=== PATIENT | male | born 1950 | race Caucasian/White ===

== ENCOUNTER 2021-06-06 10:55 | Outpatient (REF) | payer MEDICARE, MEDICAID, SELFPAY ==
--- NOTE | ~2021-06-06 | US_ITS ---
EXAMINATION: US RETROPERITONEAL LIMITED (RENAL ONLY) CLINICAL INFORMATION: History of nephrolithiasis. Acute onset of left flank pain. COMPARISON: CT abdomen and pelvis 10/08/2017. Ultrasound kidneys and bladder 06/12/2017. TECHNIQUE: Real-time imaging of the kidneys. Technically limited study. The left kidney was difficult to visualized due to patient's body habitus. FINDINGS: RIGHT KIDNEY: 9.4 x 4.8 x 5.9 cm (SAG x AP x TRV). The kidney is normal in size, contour, and echogenicity. Renal cortical thickness is normal. No calculi or focal parenchymal lesions. No hydronephrosis. LEFT KIDNEY: 10.2 x 4.4 x 6.3 cm (SAG x AP x TRV). The kidney is normal in size, contour, and echogenicity. Renal cortical thickness is normal. No hydronephrosis. Solitary echogenic focus is noted at the inferior pole, measures approximately 0.5 cm at its maximum dimension (23), may represent vascular calcification versus nonobstructing calculus. Exophytic hypoechogenicity is also noted at inferior pole measuring 1.3 x 1.0 x 0.9 cm, most minimally complicated cyst. US/US renal BI IMPRESSION: 1. 0.5 cm echogenic focus at the inferior pole of the left kidney, may represent vascular calcification versus nonobstructing calculus. 1.3 cm minimally complicated exophytic left renal cyst at the inferior pole. 2. Sonographically unremarkable right kidney.
== END 2021-06-06 10:56 | disposition home or self-care (01) ==
LOC: HO.US 10:55
PROVIDERS: PCP Nurse Practitioner; Visit Provider Nurse Practitioner
DX: R10.9 Unspecified abdominal pain (principal)
CPT/HCPCS: 76775

== ENCOUNTER 2021-09-18 08:28 | Outpatient (REF) | payer MEDICARE, MEDICAID, SELFPAY ==
--- NOTE | ~2021-09-18 | MR_ITS ---
EXAMINATION: MR ABDOMEN WITHOUT CONTRAST CLINICAL INFORMATION: Left adrenal mass COMPARISON: CT abdomen 07/24/2021 TECHNIQUE: MR abdomen is performed without gadolinium contrast. Patient declined intravenous contrast. FINDINGS: Exam is markedly limited due to motion artifact and severe scoliotic curvature of the spine. LUNG BASES: Small bilateral pleural effusions. ABDOMINAL AND PELVIC WALL: Unremarkable. LIVER AND BILIARY TREE: Unremarkable. GALLBLADDER: Unremarkable. PANCREAS: Unremarkable. SPLEEN: Unremarkable. ADRENAL GLANDS: Right adrenal gland is unremarkable. The left adrenal gland is not definitively discerned given limitations of motion and severe scoliosis. KIDNEYS AND URETERS: A 0.8 cm T2 hypointense left upper pole renal lesion and a 1.0 cm T2 hypointense left lower pole renal lesion. Given severe motion degradation on T1 images these cannot be definitively characterized. GASTROINTESTINAL TRACT: Unremarkable. VASCULAR: Unremarkable. LYMPH NODES/PERITONEUM: No lymphadenopathy. FREE FLUID: None. OSSEOUS STRUCTURES: Severe dextroconvex scoliosis. MR/MR abdomen wo con IMPRESSION: Markedly technically limited exam due to motion artifact and severe scoliotic curvature of the spine. Left adrenal gland is not definitively discerned given these limitations. A CT adrenal protocol could be obtained for further characterization given concerns. There are T2 hypointense left renal lesions measuring up to 1.0 cm incompletely characterized on the basis of this exam as the T1 sequence is nondiagnostic due to motion. Given the prior appearance on CT these may reflect hyperdense renal cysts, which could be confirmed on the above recommended CT adrenal protocol. Small pleural effusions.
== END 2021-09-18 08:29 | disposition home or self-care (01) ==
LOC: HO.MRI 08:28
PROVIDERS: Visit Provider Internal Medicine Geriatric Medicine
DX: E27.8 Other specified disorders of adrenal gland (principal)
CPT/HCPCS: 74181

== ENCOUNTER 2022-11-25 12:14 | Outpatient (REF) | payer MEDICARE, MEDICAID, SELFPAY ==
[2022-11-25 13:54] LABS: Anion Gap 9 (12-20); Blood Urea Nitrogen 17 mg/dL (9-16); Calcium 9.5 mg/dL (8.4-10.2); Carbon Dioxide 32 mmol/L (22-29); Chloride 95 mmol/L (96-108); Estimated Glomerular Filt Rate > 60; Glucose Random 93 mg/dL (60-115); Potassium 3.9 mmol/L (3.3-5.1); Sodium 132 mmol/L (135-145)
[2022-11-25 17:40] LABS: Creatinine Urine 25.89 mg/dL; Microalbumin Urine < 5.0 mg/L
== END 2022-11-25 12:15 | disposition home or self-care (01) ==
LOC: HO.HHCL 12:14
PROVIDERS: Visit Provider Internal Medicine Geriatric Medicine
DX: J02.9 Acute pharyngitis, unspecified (principal); R60.0 Localized edema
CPT/HCPCS: 36415; 80048; 82043

== ENCOUNTER 2023-03-16 08:54 | Outpatient (REF) | payer MEDICARE, MEDICAID, SELFPAY ==
[2023-03-16 11:47] LABS: Anion Gap 14 (12-20); Blood Urea Nitrogen 9 mg/dL (9-16); Calcium 9.9 mg/dL (8.4-10.2); Carbon Dioxide 31 mmol/L (22-29); Chloride 88 mmol/L (96-108); Estimated Glomerular Filt Rate > 60; Glucose Random 90 mg/dL (60-115); Potassium 4.3 mmol/L (3.3-5.1); Sodium 129 mmol/L (135-145)
== END 2023-03-16 08:55 | disposition home or self-care (01) ==
LOC: HO.HHCL 08:54
PROVIDERS: Visit Provider Internal Medicine Geriatric Medicine
DX: E87.1 Hypo-osmolality and hyponatremia (principal)
CPT/HCPCS: 36415; 80048

== ENCOUNTER 2023-03-23 08:34 | Outpatient (REF) | payer MEDICARE, MEDICAID, SELFPAY ==
[2023-03-23 12:25] LABS: Anion Gap 12 (12-20); Blood Urea Nitrogen 10 mg/dL (9-16); Calcium 9.5 mg/dL (8.4-10.2); Carbon Dioxide 29 mmol/L (22-29); Chloride 94 mmol/L (96-108); Estimated Glomerular Filt Rate > 60; Glucose Random 80 mg/dL (60-115); Potassium 4.6 mmol/L (3.3-5.1); Sodium 130 mmol/L (135-145)
== END 2023-03-23 08:35 | disposition home or self-care (01) ==
LOC: HO.HHCL 08:34
PROVIDERS: Visit Provider Internal Medicine Geriatric Medicine
DX: I10 Essential (primary) hypertension (principal); E87.1 Hypo-osmolality and hyponatremia
CPT/HCPCS: 36415; 80048

== ENCOUNTER 2023-04-06 13:55 | Outpatient (REF) | payer MEDICARE, MEDICAID, SELFPAY ==
--- NOTE | ~2023-04-06 | US_ITS ---
EXAMINATION: US SCROTUM CLINICAL INFORMATION: Right lower quadrant pain. COMPARISON: Ultrasound scrotum 09/08/2016. TECHNIQUE: A sonogram of the scrotum was performed assessing blue-scale appearance and color Doppler flow. Spectral Doppler analysis of the arterial and venous flow were performed in the testes bilaterally. FINDINGS: RIGHT: Right testicle measures 4.6 x 2.0 x 3.1 cm, volume 15.1 mL. No focal testicular parenchymal lesions are visualized. Spectral Doppler analysis of the arterial and venous flow is normal in the right testis. Right epididymal head is normal in size. No right varicocele is seen. Small to moderate hydrocele. Right epididymal Doppler flow is normal. LEFT: Left testicle measures 4.8 x 1.8 x 3.1 cm, volume 14.2 mL. No focal testicular parenchymal lesions are visualized. Spectral Doppler analysis of the arterial and venous flow is normal in the left testis. Left epididymal head is normal in size. No left varicocele is seen. Large hydrocele with floating debris. Left epididymal Doppler flow is normal. US/US scrotum IMPRESSION: 1. Large left hydrocele with floating debris, correlate clinically for superimposed infection. 2. Small to moderate right hydrocele.
== END 2023-04-06 13:56 | disposition home or self-care (01) ==
LOC: HO.US 13:55
PROVIDERS: PCP Internal Medicine Geriatric Medicine; Visit Provider Internal Medicine Geriatric Medicine
DX: R10.31 Right lower quadrant pain (principal)
CPT/HCPCS: 76870

== ENCOUNTER 2023-06-03 14:25 | Outpatient (REF) | payer MEDICARE, MEDICAID, SELFPAY ==
[2023-06-03 17:06] LABS: Urine Cytology See Pathology rpt
== END 2023-06-03 14:26 | disposition home or self-care (01) ==
LOC: HO.LNP 14:25
PROVIDERS: PCP Internal Medicine Geriatric Medicine; Visit Provider Urology
DX: N43.3 Hydrocele, unspecified (principal); N28.89 Other specified disorders of kidney and ureter; R31.29 Other microscopic hematuria; R33.9 Retention of urine, unspecified; R10.31 Right lower quadrant pain; Z79.899 Other long term (current) drug therapy
CPT/HCPCS: 81003; 88112; 99202

== ENCOUNTER 2023-06-03 14:25 | Outpatient (AMB) | payer MEDICARE, MEDICAID, SELFPAY ==
--- NOTE | 2023-06-03 14:42 | MHC.OFFVIS ---
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 Production Managing Required: Yes Accompanied by: Self / Same As Patient Allergies No Known Allergies Allergy (Verified 06/03/23 14:47) Medication List - Last Reconciled 06/04/23 by Rhonda Castañeda MD albuterol sulfate 90 mcg/actuation 2 puffs inhalation Q4-6H PRN atorvastatin 20 mg PO DAILY clotrimazole-betamethasone 1-0.05 % appl topical BID furosemide (Lasix) 10 mg (1/2 x 20 mg) PO Q OTHER DAY gabapentin 300 mg PO TID hydrochlorothiazide mg PO ketotifen fumarate 0.025%(0.035%) 1 drp ophthalmic (eye) BID latanoprost 0.005% 1 drp ophthalmic (eye) QPM naproxen 500 mg PO BID tamsulosin 0.8 mg PO DAILY HPI HPI Comments History of Present Illness Details Ifeanyi is a Arabic-speaking male who states he had Pain right inguinal area and was Sent for scrotal ultrasound by his PCP. 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 He denies urinary symptoms. Denies cigarette use. Review of scrotal ultrasound bilateral hydrocele left greater than right. Examination -tenderness right groin, denies scrotal tenderness, denies hydroceles are bothersome. Urinalysis 2+ blood Plan:Right inguinal pain, h/o right inguinal repair- refer to gen surgery b/L hydrocele L>R, asymptomatic, will monitor conservatively Microscopic hematuria renal hyperdense cyst vs mass on previous MRI CT Urogram urine for cytology fu office cysto PFSH Surgical History History of surgery on lower extremity H/O inguinal hernia repair Social History Alcohol intake: never Smoked in Last 30 Days: No Use of substances other than those prescribed or required for medical reasons: No Advance Directives: No Advance Directives Information Provided: Yes Review of Systems Const All systems reviewed & are unremarkable except as noted in HPI and below Reports no additional complaints Eyes Reports no additional complaints ENT Reports no additional complaints Card Denies dyspnea Resp Denies cough and Denies dyspnea GI Reports no additional complaints Musc Reports no additional complaints Skin/Breast Denies rash and Denies unusual bruising Neuro Reports no additional complaints Psych Reports no additional complaints Endo Reports no additional complaints Kingsley/Lymph Reports no additional complaints Aller/Immun Reports no additional complaints Physical Exam Const General: healthy appearing, no acute distress and well developed Orientation/consciousness: patient oriented x3 HEENT Head: Yes normocephalic and Yes atraumatic Eyes Conjunctivae: conjunctivae normal Neck Neck: Yes normal visual inspection Chest Chest palpation & inspection: normal inspection of the chest Resp Effort & Inspection: normal respiratory effort Cardio Rate: regular rate GI Inspection: Yes normal to inspection Palpation (GI): Soft to palpation Other: Bilateral hydroceles, non tender L>R Penis: normal penis and uncircumcised Skin General skin exam: no rashes or lesions noted Neuro General: patient oriented x3 Extrem General: No pedal edema Psych Appearance: grossly normal Affect: normal affect Results AMB Urinalysis, Automated UA Leukoctes 0 Saturnino/uL Last Edit by Zuleyka Christian CMA on 06/03/23 15:00 UA Nitrite Negative Last Edit by Zuleyka Christian CMA on 06/03/23 15:00 UA Urobilinogen 0.2 mg/dL Last Edit by Zuleyka Christian CMA on 06/03/23 15:00 UA Protein 0 mg/dL Last Edit by Zuleyka Christian CMA on 06/03/23 15:00 UA pH 7.0 Last Edit by Zuleyka Christian [facility] on 06/03/23 15:00 UA Blood 80 Jagdeep/uL Last Edit by Zuleyka Christian [facility] on 06/03/23 15:00 UA Specific [place] 1.015 Last Edit by Zuleyka Christian [facility] on 06/03/23 15:00 UA Ketone Negative Last Edit by Zuleyka Christian CMA on 06/03/23 15:00 UA Bilirubin 0 mg/dL Last Edit by Zuleyka Christian CMA on 06/03/23 15:00 UA Glucose 0 mg/dL Last Edit by Zuleyka Christian [facility] on 06/03/23 15:00 Results Reviewed Results Reviewed: Laboratory Last Values Urine pH (Auto) 7.0 06/03/23 14:58 Specific [place] (Auto) 1.015 06/03/23 14:58 Urine Protein (Auto) 0 mg/dL 06/03/23 14:58 Glucose (UA)(Auto) 0 mg/dL 06/03/23 14:58 Urine Ketones (Auto) Negative 06/03/23 14:58 Urine Blood (Auto) 80 Jagdeep/uL 06/03/23 14:58 Urine Nitrite (Auto) Negative 06/03/23 14:58 Urine Bilirubin (Auto) 0 mg/dL 06/03/23 14:58 Urine Urobilinogen (Auto) 0.2 mg/dL 06/03/23 14:58 Leukocyte Esterase (Auto) 0 Saturnino/uL 06/03/23 14:58 Date of Service: 04/06/23 Procedure(s): US scrotum Accession Number(s): [id number] cc: Name,Jamie DURHAM~ EXAMINATION: US SCROTUM CLINICAL INFORMATION: Right lower quadrant pain. COMPARISON: Ultrasound scrotum 09/08/2016. TECHNIQUE: A sonogram of the scrotum was performed assessing blue-scale appearance and color Doppler flow. Spectral Doppler analysis of the arterial and venous flow were performed in the testes bilaterally. FINDINGS: RIGHT: Right testicle measures 4.6 x 2.0 x 3.1 cm, volume 15.1 mL. No focal testicular parenchymal lesions are visualized. Spectral Doppler analysis of the arterial and venous flow is normal in the right testis. Right epididymal head is normal in size. No right varicocele is seen. Small to moderate hydrocele. Right epididymal Doppler flow is normal. LEFT: Left testicle measures 4.8 x 1.8 x 3.1 cm, volume 14.2 mL. No focal testicular parenchymal lesions are visualized. Spectral Doppler analysis of the arterial and venous flow is normal in the left testis. Left epididymal head is normal in size. No left varicocele is seen. Large hydrocele with floating debris. Left epididymal Doppler flow is normal. US/US scrotum IMPRESSION: 1. Large left hydrocele with floating debris, correlate clinically for superimposed infection. 2. Small to moderate right hydrocele. Date of Service: 09/18/21 EXAMINATION: MR ABDOMEN WITHOUT CONTRAST CLINICAL INFORMATION: Left adrenal mass COMPARISON: CT abdomen 07/24/2021 TECHNIQUE: MR abdomen is performed without gadolinium contrast. Patient declined intravenous contrast. FINDINGS: Exam is markedly limited due to motion artifact and severe scoliotic curvature of the spine. LUNG BASES: Small bilateral pleural effusions. ABDOMINAL AND PELVIC WALL: Unremarkable. LIVER AND BILIARY TREE: Unremarkable. GALLBLADDER: Unremarkable. PANCREAS: Unremarkable. SPLEEN: Unremarkable. ADRENAL GLANDS: Right adrenal gland is unremarkable. The left adrenal gland is not definitively discerned given limitations of motion and severe scoliosis. KIDNEYS AND URETERS: A 0.8 cm T2 hypointense left upper pole renal lesion and a 1.0 cm T2 hypointense left lower pole renal lesion. Given severe motion degradation on T1 images these cannot be definitively characterized. GASTROINTESTINAL TRACT: Unremarkable. VASCULAR: Unremarkable. LYMPH NODES/PERITONEUM: No lymphadenopathy. FREE FLUID: None. OSSEOUS STRUCTURES: Severe dextroconvex scoliosis. IMPRESSION: Markedly technically limited exam due to motion artifact and severe scoliotic curvature of the spine. Left adrenal gland is not definitively discerned given these limitations. A CT adrenal protocol could be obtained for further characterization given concerns. There are T2 hypointense left renal lesions measuring up to 1.0 cm incompletely characterized on the basis of this exam as the T1 sequence is nondiagnostic due to motion. Given the prior appearance on CT these may reflect hyperdense renal cysts, which could be confirmed on the above recommended CT adrenal protocol. Small pleural effusions. Assessment & Plan Assessment & Plan (1) Hydrocele, bilateral: Code(s): N43.3 - Hydrocele, unspecified (2) Renal mass of unknown nature: Code(s): N28.89 - Other specified disorders of kidney and ureter (3) Microscopic hematuria: Code(s): R31.29 - Other microscopic hematuria (4) Deep right inguinal pain: Code(s): R10.31 - Right lower quadrant pain Plan Right inguinal pain, h/o right inguinal repair- refer to gen surgery b/L hydrocele L>R, asymptomatic, will monitor conservatively Microscopic hematuria renal hyperdense cyst vs mass on previous MRI CT Urogram urine for cytology fu office cysto Orders: Orders AMB Urinalysis Automated 06/03/23 R33.9 - Retention of urine, unspecified CT urogram 06/03/23 R31.9 - Hematuria, unspecified Urine Cytology 06/03/23 N43.3 - Hydrocele, unspecified, R31.29 - Other microscopic hematuria Referrals General Surgery Referral R10.31 - Right lower quadrant pain Coding Level of Care Code New Pt Level 4 (33814) Diagnoses Hydrocele, bilateral N43.3 Renal mass of unknown nature N28.89 Microscopic hematuria R31.29 Deep right inguinal pain R10.31
== END 2023-06-03 15:12 | disposition home or self-care (01) ==
LOC: HO.HUSH 14:25
PROVIDERS: PCP Internal Medicine Geriatric Medicine; Visit Provider Urology
DX: N43.3 Hydrocele, unspecified (principal); N28.89 Other specified disorders of kidney and ureter; R31.29 Other microscopic hematuria; R10.31 Right lower quadrant pain
CPT/HCPCS: 99204

== ENCOUNTER 2023-06-03 16:38 | Emergency (ER) | payer MEDICARE, MEDICAID, SELFPAY ==
--- NOTE | ~2023-06-03 | US_ITS ---
EXAMINATION: US VENOUS ULTRASOUND WITH DOPPLER LOWER EXTREMITY, BILATERAL CLINICAL INFORMATION: Edema COMPARISON: None available. TECHNIQUE: Ultrasound of the deep veins is performed from the hip to the calf with compression sonography and color and pulse Doppler assessment. Spectral analysis with color-flow imaging is performed. FINDINGS: RIGHT: There is normal venous compression and respiratory variation and augmented flow. The visualized common femoral vein, superficial femoral vein, profunda femoral vein, popliteal vein, and the trifurcation region shows no evidence of deep venous thrombosis. There is no significant popliteal fossa cyst. LEFT: There is normal venous compression and respiratory variation and augmented flow. The visualized common femoral vein, superficial femoral vein, profunda femoral vein, popliteal vein, and the trifurcation region shows no evidence of deep venous thrombosis. There is no significant popliteal fossa cyst. If the patient's symptoms persist, followup ultrasound in 5 days 7 days might be of value to exclude proximal propagation from a non-visualized calf vein. US/US venous duplex LE BI IMPRESSION: No DVT demonstrated in the bilateral lower extremity.
--- NOTE | ~2023-06-03 | XR_ITS ---
EXAMINATION: XR CHEST CLINICAL INFORMATION: SOB. COMPARISON: Chest 06/25/2017 TECHNIQUE: Frontal view of the chest was obtained. FINDINGS: There is hypovolemic lungs with mild atelectatic changes in both lung bases. There is mild thyromegaly with increased perivascular is suggestive mild CHF. There is bilateral small pleural effusion noted. These findings are new since 2018. Moderate dextrorotoscoliosis of dorsal spine XR/XR chest 1V IMPRESSION: 1. Cardiomegaly mild CHF and bilateral small pleural effusions. 2. Hypovolemic lungs with mild atelectatic changes in both lung bases.. 3. Significant dextrorotoscoliosis dorsal spine.
[2023-06-03 16:57] VITALS: BP 178/94; PULSE 70; RESP 16; TEMP 36.8; O2SAT 95; BMI 24.9
--- NOTE | 2023-06-03 17:00 | ECG_ITS ---
Test Reason : SOB Blood Pressure : / mmHG Vent. Rate : 068 BPM Atrial Rate : 068 BPM P-R Int : 152 ms QRS Dur : 116 ms QT Int : 386 ms P-R-T Axes : 049 137 048 degrees QTc Int : 410 ms Normal sinus rhythm with sinus arrhythmia Right bundle branch block Left posterior fascicular block Bifascicular block Abnormal ECG No previous ECGs available Referred By: Meng Patterson Electronically Signed By:ZEYAD LAU MD
--- NOTE | 2023-06-03 17:05 | ED_ITS ---
HPI - General Adult General Chief complaint: Upper Respiratory Symptoms Stated complaint: Difficulty breathing, referred by UC Time Seen by Provider: 06/03/23 23:54 Source: patient, family and rn labor and delivery Mode of arrival: ambulatory History of Present Illness HPI narrative: 72-year-old male who presents with worsening shortness of breath for the past couple of months but over the past week states it is become much worse with worsening swelling in the left lower extremity, dyspnea on exertion without chest pain/palpitations, denies any changes in medications. Related Data Home Medications Medication Instructions Recorded Confirmed albuterol sulfate 90 mcg/actuation 2 puff inhalation Q4-6H PRN 06/03/23 06/04/23 aerosol inhaler atorvastatin 20 mg tablet 20 mg PO DAILY 06/03/23 06/04/23 clotrimazole-betamethasone 1 appl topical BID 06/03/23 06/04/23 %-0.05 % topical cream gabapentin 300 mg capsule 300 mg PO TID 06/03/23 06/04/23 hydrochlorothiazide 12.5 mg tablet mg PO 06/03/23 06/04/23 ketotifen fumarate 0.025 % (0.035 1 drp ophthalmic (eye) BID 06/03/23 06/04/23 %) eye drops latanoprost 0.005 % eye drops 1 drp ophthalmic (eye) QPM 06/03/23 06/04/23 naproxen 500 mg tablet 500 mg PO BID 06/03/23 06/04/23 tamsulosin 0.4 mg capsule 0.8 mg PO DAILY 06/03/23 06/04/23 Previous Rx's Medication Instructions Recorded furosemide 20 mg tablet (Lasix) 10 mg (1/2 x 20 mg) PO Q OTHER DAY 06/04/23 #3 tabs Allergies Allergy/AdvReac Type Severity Reaction Status Date / Time No Known Allergies Allergy Verified 06/03/23 14:47 Review of Systems 2 Review of Systems: Pertinent positives and negatives as stated in [facility] Past Medical History Source: nursing notes reviewed Surgical History History of surgery on lower extremity H/O inguinal hernia repair Social History Social History Alcohol intake: never Smoked in Last 30 Days: No Use of substances other than those prescribed or required for medical reasons: No Advance Directives: No Advance Directives Information Provided: Yes Physical Exam ED Vital Signs: Vital Signs - 24 hr 06/03/23 16:57 06/03/23 22:54 06/03/23 23:52 Temperature 98.2 F 97.8 F 97.6 F Pulse Rate 70 73 62 Respiratory Rate 16 16 14 Blood Pressure 178/94 H 164/82 H 169/86 H Pulse Oximetry 95 94 96 Oxygen Delivery Method Room Air Room Air Room Air 06/04/23 00:47 06/04/23 00:47 Temperature Pulse Rate 58 Respiratory Rate 12 Blood Pressure 142/86 H Pulse Oximetry 96 96 Oxygen Delivery Method Room Air Room Air BMI result Body Mass Index 24.9 VITAL SIGNS: Reviewed. GENERAL: Well developed, well nourished, in no acute distress. HEAD: Normocephalic/atraumatic EYES: PERRLA, EOMI EARS: Ext canals without abnormality NOSE: Nares patent bilateral OROPHARYNX: no oral lesions noted, posterior pharynx clear NECK: Supple, no adenopathy LUNGS: Bibasilar rales, no tachypnea no obvious increased work of breathing. SpO2<96> CARDIOVASCULAR: Regular rate and rhythm without noted murmurs, no JVD but bilateral lower extremity 1 to 2+ pitting edema, left greater than right ABDOMEN: Soft, non-tender, non-distended with bowel sounds. MUSCULOSKELETAL: No tenderness, deformities, or effusions noted on gross inspection. EXTREMITIES: No cyanosis, clubbing or edema. SKIN: Inspection of the skin reveals no rashes NEUROLOGIC: Alert and oriented x 4. Strength and sensation to light touch were grossly intact x 4. Course Course Course Narrative: RME: 72 yold male with presents to the ED for SOB for 3 months. patient was at clinic where 02 sat dropped from 97 to 87. Presently 02 sat 95 percent on room air. positive for right leg swelling. labs, EKG, xray, and US ordered Medications Administered Discontinued Medications Generic Name Dose Route Start Last Admin Trade Name Freq PRN Reason Stop Dose Admin Furosemide 20 mg 06/04/23 00:32 06/04/23 00:46 Furosemide 20 Mg Tablet PO 06/04/23 00:33 20 mg ONCE ONE Administration Protocol Medical Decision Making Medical Decision Making MDM Narrative: 72-year-old male with history and clinical presentation, DDX: Viral illness, CHF, DVT, lower clinical suspicion for ACS or pneumonia. I reviewed all investigations and hematologic indices are without leukocytosis or left shift, there is no anemia or thrombocytopenia. Coagulation studies are within normal limits. Chemistry indices do not demonstrate an JOSELO nor they demonstrate electrolyte or liver enzyme derangements. High sensitivity troponin is noted to be detectable but not elevated and BNP although 39 clinical exam/chest x-ray are consistent in that patient has mild CHF without hypoxia. Urinalysis negative for UTI. Viral testing is negative for COVID-19/influenza. Chest x-ray demonstrates cardiomegaly and evidence to suggest mild CHF with bilateral small pleural effusions. Patient will receive 20 mg of Lasix orally and be discharged on Q0D 10 mg and he was strongly encouraged to follow-up with his primary care doctor 1st thing in the morning for repeat lab work and referral for Cardiology. Venous duplex did not demonstrate a DVT in the lower extremity and again the swelling within the lower extremity most consistent with CHF. Patient is otherwise discharged home in stable condition. Differential Diagnosis Differential Diagnoses: The differential diagnosis associated with the presentation includes Please see the discussion above Admission/Observation Consideration of admission/observation: Escalation of care including admission/observation considered Please see the discussion above Lab Data MDM Lab Attestation statement: I reviewed the patient's lab results. Please see the discussion above 06/03/23 17:15 06/03/23 17:15 Labs: Lab Results 06/03/23 Range/Units 17:15 WBC 4.4 L (4.8-10.8) X10*3/uL RBC 4.66 (4.60-5.80) X10*6/uL Hgb 15.0 (14.0-18.0) g/dl Hct 44.5 (42.0-52.0) % MCV 95.5 (80.0-98.0) fL MCH 32.2 (27.0-33.0) pg MCHC 33.7 (31.0-36.0) g/dl RDW 12.8 (11.0-16.0) % Plt Count 200 (160-400) X10*3/uL MPV 9.1 L (9.4-12.4) fL Immature Gran % (Auto) 0.2 (0.0-0.4) % Neut % (Auto) 61.1 (45-73) % Lymph % (Auto) 30.0 (20-40) % [place] % (Auto) 7.4 (2-11) % Eos % (Auto) 1.1 (0-4) % Baso % (Auto) 0.2 (0-2) % Lymph # (Auto) 1.3 (1.2-4.9) X10*3/uL [place] # (Auto) 0.3 (0.1-1.2) X10*3/uL Eos # (Auto) 0.1 (0.0-0.4) X10*3/uL Baso # (Auto) 0.0 (0.0-0.2) X10*3/uL Abs Immat Gran (auto) 0.01 (0.00-0.03) X10*3/uL Absolute Neuts (auto) 2.7 (2.0-8.3) x10*3/uL Absolute Nucleated RBC 0.000 (0.0-0.012) X10*3/uL Nucleated RBC % (auto) 0.0 (0.0-0.2) /100WBC PT 12.6 (11.1-13.3) SEC INR 1.0 (0.9-1.1) APTT 32.0 (26.0-36.8) SEC Sodium 134 L (135-145) mmol/L Potassium 4.2 (3.3-5.1) mmol/L Chloride 96 (96-108) mmol/L Carbon Dioxide 29 (22-29) mmol/L Anion Gap 13 (12-20) BUN 11 (9-16) mg/dL Creatinine 0.68 (0.5-1.4) mg/dL Estim Creat Clear Calc 44.8 Estimated GFR > 60 Random Glucose 97 (60-115) mg/dL Calcium 9.5 (8.4-10.2) mg/dL Total Bilirubin 0.9 (0.0-1.0) mg/dL AST 22 (5-37) U/L ALT 14 (0-40) U/L Alkaline Phosphatase 87 (39-117) U/L Troponin I High Sens 4.2 (<3.5-35.0) ng/L B-Natriuretic Peptide 39 (<100) pg/mL Total Protein 7.2 (6.5-8.0) g/dL Albumin 4.5 (3.5-5.0) g/dL COVID-19 (MIGUEL ANGEL) Negative (Negative) COVID-19 Clin Com See Note Influenza Type A (ANN) Negative (Negative) Influenza Type B (ANN) Negative (Negative) Influenza A & B Note See Note Independent Interpretation I performed an independent interpretation of an: EKG Radiology Impression Discussion of test interpretation with radiology: I have reviewed the radiologist's reading. Radiologist Impression: Please see the discussion above External Record Review External record reviewed: Outpatient record, Prior outpatient labs and Prior outpatient radiology Critical Care Time Critical Care Time Critical Care Time: Yes Total Critical Care Time: 45 Attestation: I personally attest to this time spent taking care of the patient. Discharge Plan Discharge Clinical Impression: CHF (congestive heart failure) Patient Disposition: Home, Self-Care Instructions: Heart Failure (ED) Additional Instructions: 1. Reanudar todos los medicamentos caseros seg?n lo recetado. 2. 10 mg de Lasix, cada dos d?as, samuel? fair primera dosis el s?bado/lunes/mi?rcoles. 3. Debe llamar al consultorio del Dr. Andreia hernandez por la ma?ted para programar harvinder kate para harvinder reevaluaci?n, repetir el an?lisis de laboratorio para verificar rayshawn electrolitos y discutir la obtenci?n de harvinder derivaci?n a Cardiolog?a. Regrese a la tao de emergencias si los s?ntomas empeoran. 1. Resume all home medications as prescribed. 2. 10 mg of Lasix, every other day, you will take your 1st dose on Thursday/Thursday/Thursday. 3. You need to call the office of Dr. Andreia hernandez in the morning to set up an appointment for re-evaluation, repeat lab work to check your electrolytes and discuss obtaining a referral for Cardiology. Return to the ER for any worsening of symptoms. Prescriptions: New furosemide [Lasix] 20 mg tablet 10 mg PO Q OTHER DAY Qty: 3 0RF Rx Instructions: Thursday, Thursday, Thursday No Action naproxen 500 mg tablet 500 mg PO BID tamsulosin 0.4 mg capsule 0.8 mg PO DAILY clotrimazole-betamethasone 1-0.05 % cream topical BID atorvastatin 20 mg tablet 20 mg PO DAILY gabapentin 300 mg capsule 300 mg PO TID latanoprost 0.005 % drops 1 drp ophthalmic (eye) QPM ketotifen fumarate 0.025 % (0.035 %) drops 1 drp ophthalmic (eye) BID Rx Instructions: administer at least 8 hours apart hydrochlorothiazide 12.5 mg tablet PO albuterol sulfate 90 mcg/actuation HFA aerosol inhaler 2 puff inhalation Q4-6H PRN Referrals: Name,MD Jamie [Primary Care Provider] - Interventions: ED Discharge Assessment Last Done: 06/04/23 01:17 Discharge Date/Time: 06/04/23 01:17 Print Language: Nauruan
[2023-06-03 17:30] LABS: MANUAL DIFF FLAG NO
[2023-06-03 17:32] LABS: Basophils Percent Auto 0.2 % (0-2); Eosinophils Absolute Auto 0.1 X10*3/uL (0.0-0.4); Eosinophils Percent Auto 1.1 % (0-4); Hematocrit 44.5 % (42.0-52.0); Imm Gran Abs Auto 0.01 X10*3/uL (0.00-0.03); Imm Gran Pct Auto 0.2 % (0.0-0.4); Lymphocytes Absolute Auto 1.3 X10*3/uL (1.2-4.9); Mean Corpuscular HGB Conc 33.7 g/dl (31.0-36.0); Mean Corpuscular Hemoglobin 32.2 pg (27.0-33.0); Mean Corpuscular Volume 95.5 fL (80.0-98.0); Mean Platelet Volume 9.1 fL (9.4-12.4); Monocytes Absolute Auto 0.3 X10*3/uL (0.1-1.2); Monocytes Percent Auto 7.4 % (2-11); Neutrophils Absolute Auto 2.7 x10*3/uL (2.0-8.3); Neutrophils Percent Auto 61.1 % (45-73); Platelet Count 200 X10*3/uL (160-400); Red Blood Count 4.66 X10*6/uL (4.60-5.80); Red Cell Distribution Width 12.8 % (11.0-16.0); White Blood Count 4.4 X10*3/uL (4.8-10.8)
[2023-06-03 17:37] LABS: Prothrombin Time 12.6 SEC (11.1-13.3)
[2023-06-03 17:45] LABS: COVID-19 Test Negative (Negative); IDNOW Serial# 55D5AD1C
[2023-06-03 17:46] LABS: Alanine Aminotransferase 14 U/L (0-40); Albumin Level 4.5 g/dL (3.5-5.0); Alkaline Phosphatase 87 U/L (39-117); Anion Gap 13 (12-20); Aspartate Amino Transferase 22 U/L (5-37); Bilirubin Total 0.9 mg/dL (0.0-1.0); Blood Urea Nitrogen 11 mg/dL (9-16); Calcium 9.5 mg/dL (8.4-10.2); Carbon Dioxide 29 mmol/L (22-29); Chloride 96 mmol/L (96-108); Creatinine Clr Calc Pharmacy 44.8; Estimated Glomerular Filt Rate > 60; Glucose Random 97 mg/dL (60-115); Potassium 4.2 mmol/L (3.3-5.1); Sodium 134 mmol/L (135-145); Total Protein 7.2 g/dL (6.5-8.0)
[2023-06-03 17:47] LABS: IDNOW Serial# 16C4AD1C; Influenza A Negative (Negative); Influenza B2 Negative (Negative)
[2023-06-03 17:51] LABS: B Type Natriuretic Peptide 39 pg/mL (<100)
[2023-06-03 17:52] LABS: Troponin-I High Sensitivity 4.2 ng/L (<3.5-35.0)
[2023-06-03 22:54] VITALS: BP 164/82; PULSE 73; RESP 16; TEMP 36.6; O2SAT 94
[2023-06-03 23:52] VITALS: BP 169/86; PULSE 62; RESP 14; TEMP 36.4; O2SAT 96
[2023-06-04] MEDS: Furosemide 20 MG TABLET PO (00:46)
[2023-06-04 00:47] VITALS: BP 142/86; PULSE 58; RESP 12; O2SAT 96
== END 2023-06-04 01:17 | disposition home or self-care (01) ==
PROVIDERS: Physician Assistant; Emergency Provider Student in an Organized Health Care Education/Training Program; PCP Internal Medicine Geriatric Medicine
DX: I50.9 Heart failure, unspecified (principal); R06.02 Shortness of breath; R07.9 Chest pain, unspecified; M79.89 Other specified soft tissue disorders; Z79.899 Other long term (current) drug therapy; Z11.52 Encounter for screening for COVID-19
CPT/HCPCS: 36415; 71045; 80053; 83880; 84484; 85025; 85610; 85730; 87502; 87635; 93005; 93970; 99284; 99285

== ENCOUNTER → 2023-06-03 17:00 | Outpatient (BNV) | payer MEDICARE, MEDICAID, SELFPAY | PROVIDERS: Emergency Provider Student in an Organized Health Care Education/Training Program; PCP Internal Medicine Geriatric Medicine; Visit Provider Internal Medicine Cardiovascular Disease | DX: I45.2 Bifascicular block (principal); R94.31 Abnormal electrocardiogram [ECG] [EKG] | CPT/HCPCS: 93010 ==

== ENCOUNTER 2023-06-04 04:52 | Emergency (ER) | payer MEDICARE, MEDICAID, SELFPAY ==
[2023-06-04 04:59] VITALS: BP 150/90; BP 151/86; PULSE 94; RESP 16; TEMP 36.4; O2SAT 94; BMI 25.2
--- NOTE | 2023-06-04 05:13 | MHC.EDTECH ---
Patient came in by ambulance, changed into hospital attire,vitals taken. Patient bladder scanned and has 466,RN at bedside and MD aware. Call huynh in reach and family at bedside
--- NOTE | 2023-06-04 05:37 | MHC.EDTECH ---
Emptied Pacheco 450MLS of clear yellow urine, RN and MD aware
[2023-06-04 05:48] LABS: Appearance Urine Clear; Color Urine Yellow; Glucose Urine UA Negative (Negative); Leukocyte Esterase Urine Negative (Negative); Nitrite Urine Negative (Negative); Specific Gravity - Urine <= 1.005 (1.005-1.025); UMIC TRIGGER UACC YES; Urine Blood Moderate (2+) (Negative); Urine Ketones Negative (Negative); Urine Protein Negative (Neg-Trace)
[2023-06-04 06:11] VITALS: BP 152/79; PULSE 69; RESP 16; TEMP 36.5; O2SAT 94
--- NOTE | 2023-06-04 06:12 | MHC.EDTECH ---
Hourly rounds and vitals completed,patient is resting comfortably call huynh in reach and at bedside
--- NOTE | 2023-06-04 06:33 | ED.ABDPAIN ---
HPI - Abdominal Pain General Chief Complaint: Abdominal Pain Stated Complaint: abd pain Time Seen by Provider: 06/04/23 06:33 Source: patient, RN notes reviewed and group contract analyst Limitations: language barrier History of Present Illness HPI narrative: This is a 72-year-old Upper Sorbian-speaking male presenting to the emergency department with complaints of lower abdominal pain and inability to void. Patient was seen in the emergency department last night where he was diagnosed with CHF and was discharged on Lasix. He states that he woke up in the middle of the night at 4:00 a.m. with discomfort in his suprapubic region and he was unable to urinate. Upon arrival in the emergency department a Pacheco catheter was placed and he no longer has the abdominal pain. Patient was also seen by urologist yesterday, Dr. Smart, as he has had scrotal pain and a hydrocele. In the office, patient had right inguinal pain, and will be referred to General surgery, he also has bilateral hydroceles, which will be monitored. Also will have CT urogram. He denies history of inability to urinate in the past. He denies any dysuria, hematuria, urinary frequency. MD elicited complaint: abdominal pain Pertinent past history: none Onset (ago): day(s) Pain Consistency: constant Location: none Severity: moderate Quality: cramping Radiation: suprapubic Migration to: no migration Exacerbating factors: nothing Relieving factors: nothing Associated symptoms: denies other symptoms Related Data Home Medications Medication Instructions Recorded Confirmed albuterol sulfate 90 mcg/actuation 2 puff inhalation Q4-6H PRN 06/03/23 06/04/23 aerosol inhaler atorvastatin 20 mg tablet 20 mg PO DAILY 06/03/23 06/04/23 clotrimazole-betamethasone 1 appl topical BID 06/03/23 06/04/23 %-0.05 % topical cream gabapentin 300 mg capsule 300 mg PO TID 06/03/23 06/04/23 hydrochlorothiazide 12.5 mg tablet mg PO 06/03/23 06/04/23 ketotifen fumarate 0.025 % (0.035 1 drp ophthalmic (eye) BID 06/03/23 06/04/23 %) eye drops latanoprost 0.005 % eye drops 1 drp ophthalmic (eye) QPM 06/03/23 06/04/23 naproxen 500 mg tablet 500 mg PO BID 06/03/23 06/04/23 tamsulosin 0.4 mg capsule 0.8 mg PO DAILY 06/03/23 06/04/23 Previous Rx's Medication Instructions Recorded furosemide 20 mg tablet (Lasix) 10 mg (1/2 x 20 mg) PO Q OTHER DAY 06/04/23 #3 tabs Allergies Allergy/AdvReac Type Severity Reaction Status Date / Time No Known Allergies Allergy Verified 06/03/23 14:47 Review of Systems Review of Systems Yes all other systems are reviewed and are negative Constitutional: Reports as per HPI [facility] [place] Past Medical History Surgical History History of surgery on lower extremity H/O inguinal hernia repair Social History Social History Alcohol intake: never Smoked in Last 30 Days: No Use of substances other than those prescribed or required for medical reasons: No Advance Directives: No Advance Directives Information Provided: Yes Physical Exam ED Vital Signs: Vital Signs - 24 hr 06/04/23 04:59 06/04/23 06:11 Temperature 97.6 F 97.7 F Pulse Rate 94 69 Respiratory Rate 16 16 Blood Pressure 151/86 H 152/79 H Pulse Oximetry 94 Oxygen Delivery Method Room Air Room Air BMI result Body Mass Index 25.2 Const General: cooperative, comfortable and no acute distress Orientation/consciousness: patient oriented x3 Limitations: no limitations HENMT Head: Yes normal to inspection, Yes normocephalic and Yes atraumatic Ears: hearing grossly normal bilaterally General nose exam: Normal external nose present Face and sinus: Yes normal facial exam Mouth: Normal oral and palatal mucosa present, oropharynx normal and moist mucous membranes Throat: Yes posterior oropharynx normal Eyes General: appearance normal, both eyes and all related structures Eyelids: Yes eyelids normal Conjunctivae: conjunctivae normal Sclerae: sclerae normal Pupils: Equal, round and reactive pupils present EOM: EOMs intact bilaterally Neck Neck: Yes normal visual inspection, Yes full ROM and Yes no lymphadenopathy Lymphatic: no lymphadenopathy noted Chest Chest palpation & inspection: normal inspection of the chest Resp Effort & Inspection: normal respiratory effort and able to speak in complete sentences Auscultation: clear to auscultation bilaterally, no crackles, no rales, no rhonchi and no wheezes Cardio Rate: regular rate Rhythm: regular rhythm Heart sounds: S1 normal heart sound present and S2 normal heart sound present GI Other: Abdomen is soft, nontender, nondistended Inspection: Yes normal to inspection Skin General skin exam: no rashes or lesions noted Trauma: no lacerations or abrasions Wounds: no wounds Neuro General: patient oriented x3 and moves all extremities Cranial nerves: Yes Equal, round and reactive pupils present Extrem Other: Lower extremity pitting edema 1+ bilaterally, no calf tenderness General: Yes normal to inspection Right upper extremity: normal to inspection Left upper extremity: normal to inspection Right lower extremity: normal to inspection Left lower extremity: normal to inspection Course Reevaluation(s) Reevaluation #1: Urine has no evidence of infection. Discussed case with my attending physician, Dr. Faria, recommends discharging on Pacheco catheter and follow-up with Urology. Of note patient was seen by Dr. Smart yesterday in regards to a hydrocele. I reached out to Dr. Smart given familiarity of this case and patient. Time: 08:17 Reevaluation #2: Dr. Smart recommends keeping Pacheco catheter in place and follow-up with urologist next week for removal. Given return precautions. Patient understands agrees with plan. Patient stable for discharge. Time: 08:47 Medical Decision Making Medical Decision Making [facility] Narrative: This is a 72-year-old Upper Sorbian-speaking male presenting to the emergency department for evaluation of inability to urinate and suprapubic abdominal pain since this morning. Patient arrived to the emergency department with discomfort in his lower abdomen. There was >450 ccs of urine in his bladder, and a Pacheco catheter was placed. He states he no longer has the abdominal pressure and is feeling much better. On arrival, vital signs within normal limits. He is nontoxic appearing, afebrile. He was seen in the emergency department yesterday for CHF and was discharged Lasix. Differential Diagnosis Differential Diagnoses: The differential diagnosis associated with the presentation includes UTI, urinary frequency, urinary urgency, BPH, adverse medication reaction Admission/Observation Consideration of admission/observation: Escalation of care including admission/observation considered Lab Data [facility] Lab Attestation statement: I reviewed the patient's lab results. Urine revealing 2+ blood, and greater than 20 rbc's, no evidence of infection at this time. Labs: Lab Results 06/04/23 Range/Units 05:37 Urine Color Yellow Urine Appearance Clear Urine pH 7.0 (5.0-9.0) Ur Specific [place] <= 1.005 (1.005-1.025) Urine Protein Negative (Neg-Trace) mg/dL Urine Glucose (UA) Negative (Negative) mg/dL Urine Ketones Negative (Negative) mg/dL Urine Blood Moderate (2+) H (Negative) Urine Nitrite Negative (Negative) Ur Leukocyte Esterase Negative (Negative) Urine RBC >20 H (0-2) /HPF Urine WBC 0-5 (0-5) /HPF Ur Squamous Epith Cells 0-2 (0-2) /HPF Urine Bacteria None Seen (None Seen) Hyaline Casts 0-2 (0-2) /LPF Discharge Plan Discharge Clinical Impression: Acute urinary retention Patient Disposition: Home, Self-Care Instructions: Urinary Retention in Men (ED) Additional Instructions: You were seen in the emergency department due to urinary retention. We placed a Pacheco catheter in your bladder to help alleviate the symptoms. Your urologist, Dr. Smart, is aware of your urinary retention and is recommending to keep Pacheco catheter in place and the office will contact you for Pacheco removal next week. If any new or worsening symptoms occur including but not limited to changes in color of urine, pain, fevers or chills, chest pain or shortness of breath, please report to the emergency room. Usted fue atendido en urgencias por retenci?n urinaria. Le colocamos harvinder sonda Pacheco en la vejiga para ayudar a aliviar los s?ntomas. Leija ur?logo, el Dr. Smart, est? consciente de leija retenci?n urinaria y recomienda mantener el cat?ter de Pacheco en leija lugar y el consultorio se comunicar? con usted para retirarlo la pr?xima semana. Si se presenta alg?n s?ntoma nuevo o que empeora, incluidos, entre otros, cambios en el color de la orina, dolor, fiebre o escalofr?os, dolor en el pecho o dificultad para respirar, informe a la tao de emergencias. Prescriptions: No Action furosemide [Lasix] 20 mg tablet 10 mg PO Q OTHER DAY Qty: 3 0RF Rx Instructions: Thursday, Thursday, Thursday naproxen 500 mg tablet 500 mg PO BID tamsulosin 0.4 mg capsule 0.8 mg PO DAILY clotrimazole-betamethasone 1-0.05 % cream topical BID atorvastatin 20 mg tablet 20 mg PO DAILY gabapentin 300 mg capsule 300 mg PO TID latanoprost 0.005 % drops 1 drp ophthalmic (eye) QPM ketotifen fumarate 0.025 % (0.035 %) drops 1 drp ophthalmic (eye) BID Rx Instructions: administer at least 8 hours apart hydrochlorothiazide 12.5 mg tablet PO albuterol sulfate 90 mcg/actuation HFA aerosol inhaler 2 puff inhalation Q4-6H PRN Print Language: Upper Sorbian
[2023-06-04 06:36] LABS: Bacteria Urine None Seen (None Seen); Hyaline Casts Urine 0-2 /LPF (0-2); RBC Urine >20 /HPF (0-2); Squamous Epithelial Cell Urine 0-2 /HPF (0-2); WBC Urine 0-5 /HPF (0-5)
== END 2023-06-04 09:55 | disposition home or self-care (01) ==
PROVIDERS: Internal Medicine; Emergency Provider Emergency Medicine
DX: R33.9 Retention of urine, unspecified (principal); R10.30 Lower abdominal pain, unspecified; N43.2 Other hydrocele; R60.0 Localized edema; Z11.52 Encounter for screening for COVID-19
CPT/HCPCS: 36415; 51702; 71045; 80053; 81001; 81003; 83880; 84484; 85025; 85610; 85730; 87502; 87635; 88112; 93005; 93970; 99202; 99283; 99284; 99285

== ENCOUNTER → 2023-06-12 09:03 | Outpatient (BNVA) | payer MEDICARE, MEDICAID, SELFPAY | PROVIDERS: Visit Provider Urology | DX: R33.8 Other retention of urine (principal) | CPT/HCPCS: 51700; 51798 ==

== ENCOUNTER 2023-06-14 09:35 | Emergency (ER) | payer MEDICARE, MEDICAID, SELFPAY ==
--- NOTE | 2023-06-14 09:46 | ED_ITS ---
HPI - General Adult General Chief complaint: Urogenital-Male Stated complaint: UNABLE TO URINATE,F/C REMOVED T-1 PER EMS Time Seen by Provider: 06/14/23 09:46 Source: patient, EMS, RN notes reviewed and material liaison Mode of arrival: EMS Limitations: language barrier History of Present Illness HPI narrative: Patient is a 72-year-old Citizen Of [place]-speaking male with history of newly diagnosed CHF, inguinal hernia repair, urinary retention presenting to the emergency department with complaint of suprapubic abdominal pain and urinary retention, states was last urinated a small amount at 7am today. Patient was seen in this ED on 06/04 for urinary retention and had indwelling urinary catheter placed at that time. He was seen by urology on 06/03 and diagnosed with bilateral hydroceles, was referred to surgery for right inguinal pain. Patient states his indwelling catheter was removed by his PCP yesterday. He denies fevers, nausea, vomiting. Denies back or flank pain. MD complaint: urinary retention Onset (ago): hour(s) Location: abdomen Radiation: non-radiation Severity: severe Quality: aching Pain Consistency: constant Relieving factors: none Exacerbating factors: movement Associated symptoms: denies other symptoms Treatments prior to arrival: none Related Data Home Medications Medication Instructions Recorded Confirmed albuterol sulfate 90 mcg/actuation 2 puff inhalation Q4-6H PRN 06/03/23 06/04/23 aerosol inhaler atorvastatin 20 mg tablet 20 mg PO DAILY 06/03/23 06/04/23 clotrimazole-betamethasone 1 appl topical BID 06/03/23 06/04/23 %-0.05 % topical cream gabapentin 300 mg capsule 300 mg PO TID 06/03/23 06/04/23 hydrochlorothiazide 12.5 mg tablet mg PO 06/03/23 06/04/23 ketotifen fumarate 0.025 % (0.035 1 drp ophthalmic (eye) BID 06/03/23 06/04/23 %) eye drops latanoprost 0.005 % eye drops 1 drp ophthalmic (eye) QPM 06/03/23 06/04/23 naproxen 500 mg tablet 500 mg PO BID 06/03/23 06/04/23 tamsulosin 0.4 mg capsule 0.8 mg PO DAILY 06/03/23 06/04/23 Previous Rx's Medication Instructions Recorded furosemide 20 mg tablet (Lasix) 10 mg (1/2 x 20 mg) PO Q OTHER DAY 06/04/23 #3 tabs cefuroxime axetil 500 mg tablet 500 mg PO BID #14 tabs 06/14/23 Allergies Allergy/AdvReac Type Severity Reaction Status Date / Time No Known Allergies Allergy Verified 06/03/23 14:47 Review of Systems 2 Review of Systems: As per HPI. Yes all other systems are reviewed and are negative PMFSH Past Medical History Medical History (Updated 06/14/23 @ 12:03 by Deya Noland NP) Urinary retention Surgical History History of surgery on lower extremity H/O inguinal hernia repair Social History Social History Alcohol intake: never Smoked in Last 30 Days: No Use of substances other than those prescribed or required for medical reasons: No Advance Directives: No Advance Directives Information Provided: No Physical Exam ED Vital Signs: Vital Signs - 24 hr 06/14/23 09:53 Temperature 97.7 F Pulse Rate 110 H Respiratory Rate 18 Blood Pressure 172/77 H Pulse Oximetry 96 BMI result Body Mass Index 25.8 Medical Decision Making Medical Decision Making [facility] Narrative: Patient is a 72-year-old Citizen [place]-speaking male with history of newly diagnosed CHF, inguinal hernia repair, urinary retention presenting to the emergency department with complaint of suprapubic abdominal pain and urinary retention, states was last urinated a small amount at 7am today. On exam patient is awake, A+Ox3, initially tachycardic and hypertensive, VS otherwise WNL, afebrile, normal neurological exam without focal deficits, physical exam findings as above. Given reported symptoms and physical exam findings, initial differential includes UTI, BPH, hydronephrosis. Labs notable for leukopenia, no anemia, no evidence of JOSELO. Urine notable for trace leukocytes, trace blood, 1+ bacteria. Initial urine output upon insertion of indwelling catheter >600mLs. Case discussed with Dr. Castañeda who agrees with treatment for UTI with antibiotics, does not feel any imaging is indicated at this time, will discharge with catheter in place, and have patient follow up outpatient for a voiding trial in one week. All results discussed with patient via material liaison and all questions answered and return precautions discussed. Patient verbalized understanding of and agreement with plan. Differential Diagnosis Differential Diagnoses: The differential diagnosis associated with the presentation includes As per [facility] Consult Healthcare Provider Management of the patient was discussed with: Geographic Information System Surveyor (Dr. Castañeda) Lab Data [facility] Lab Attestation statement: I reviewed the patient's lab results. As per MDM 06/14/23 10:21 06/14/23 10:21 Labs: Lab Results 06/14/23 06/14/23 Range/Units 10:20 10:21 WBC 2.8 L (4.8-10.8) X10*3/uL RBC 4.29 L (4.60-5.80) X10*6/uL Hgb 14.0 (14.0-18.0) g/dl Hct 39.6 L (42.0-52.0) % MCV 92.3 (80.0-98.0) fL MCH 32.6 (27.0-33.0) pg MCHC 35.4 (31.0-36.0) g/dl RDW 12.0 (11.0-16.0) % Plt Count 192 (160-400) X10*3/uL MPV 8.8 L (9.4-12.4) fL Immature Gran % (Auto) 0.4 (0.0-0.4) % Neut % (Auto) 67.8 (45-73) % Lymph % (Auto) 22.7 (20-40) % Baker % (Auto) 8.3 (2-11) % Eos % (Auto) 0.4 (0-4) % Baso % (Auto) 0.4 (0-2) % Lymph # (Auto) 0.6 L (1.2-4.9) X10*3/uL Baker # (Auto) 0.2 (0.1-1.2) X10*3/uL Eos # (Auto) 0.0 (0.0-0.4) X10*3/uL Baso # (Auto) 0.0 (0.0-0.2) X10*3/uL Abs Immat Gran (auto) 0.01 (0.00-0.03) X10*3/uL Absolute Neuts (auto) 1.9 L (2.0-8.3) x10*3/uL Absolute Nucleated RBC 0.000 (0.0-0.012) X10*3/uL Nucleated RBC % (auto) 0.0 (0.0-0.2) /100WBC Sodium 125 L (135-145) mmol/L Potassium 4.3 (3.3-5.1) mmol/L Chloride 88 L (96-108) mmol/L Carbon Dioxide 26 (22-29) mmol/L Anion Gap 15 (12-20) BUN 10 (9-16) mg/dL Creatinine 0.70 (0.5-1.4) mg/dL Estim Creat Clear Calc 44.3 Estimated GFR > 60 Random Glucose 97 (60-115) mg/dL Calcium 9.8 (8.4-10.2) mg/dL Total Bilirubin 0.9 (0.0-1.0) mg/dL AST 18 (5-37) U/L ALT 11 (0-40) U/L Alkaline Phosphatase 89 (39-117) U/L Total Protein 7.1 (6.5-8.0) g/dL Albumin 4.2 (3.5-5.0) g/dL Urine Color Yellow Urine Appearance Clear Urine pH 8.0 (5.0-9.0) Ur Specific [place] 1.010 (1.005-1.025) Urine Protein Negative (Neg-Trace) mg/dL Urine Glucose (UA) Negative (Negative) mg/dL Urine Ketones Negative (Negative) mg/dL Urine Blood Trace H (Negative) Urine Nitrite Negative (Negative) Ur Leukocyte Esterase Trace H (Negative) Urine RBC 3-5 H (0-2) /HPF Urine WBC 0-5 (0-5) /HPF Ur Squamous Epith Cells 0-2 (0-2) /HPF Urine Bacteria 1+ (None Seen) Hyaline Casts 0-2 (0-2) /LPF External Record Review External record reviewed: Inpatient record, Office record and Outpatient record Prescription Management I considered prescription management with: Antibiotic Discharge Plan Discharge Clinical Impression: Acute retention of urine, Urinary tract infection Patient Disposition: Home, Self-Care Instructions: Urinary Tract Infection in Men (DC), Pacheco Catheter Placement and Care (ED) Additional Instructions: Usted fue evaluado hoy en el departamento de emergencias por retenci?n urinaria despu?s de que le quitaron el cat?ter urinario permanente. Leija evaluaci?n mostr? evidencia de harvinder infecci?n del tracto urinario en la que estaba siendo tratado con antibi?ticos. Complete el curso completo seg?n lo prescrito. Deber? hacer un seguimiento con urolog?a ma?ted para programar harvinder kate para harvinder prueba de micci?n en el consultorio de urolog?a. Por favor no retire el cat?ter hasta esta kate. Regrese al departamento de emergencias si presenta dolor creciente, fiebre, pat en la orina, si el cat?ter no drena, v?mitos persistentes o cualquier otro s?ntoma preocupante. Prescriptions: New cefuroxime axetil 500 mg tablet 500 mg PO BID Qty: 14 0RF No Action furosemide [Lasix] 20 mg tablet 10 mg PO Q OTHER DAY Qty: 3 0RF Rx Instructions: Thursday, Thursday, Thursday naproxen 500 mg tablet 500 mg PO BID tamsulosin 0.4 mg capsule 0.8 mg PO DAILY clotrimazole-betamethasone 1-0.05 % cream topical BID atorvastatin 20 mg tablet 20 mg PO DAILY gabapentin 300 mg capsule 300 mg PO TID latanoprost 0.005 % drops 1 drp ophthalmic (eye) QPM ketotifen fumarate 0.025 % (0.035 %) drops 1 drp ophthalmic (eye) BID Rx Instructions: administer at least 8 hours apart hydrochlorothiazide 12.5 mg tablet PO albuterol sulfate 90 mcg/actuation HFA aerosol inhaler 2 puff inhalation Q4-6H PRN Referrals: [facility] [Provider Group] Print Language: Citizen [place]
[2023-06-14 09:48] VITALS: BP 172/86; PULSE 84; O2SAT 95
[2023-06-14 09:53] VITALS: BP 172/77; PULSE 110; RESP 18; TEMP 36.5; O2SAT 96; BMI 25.8
--- NOTE | 2023-06-14 10:24 | PC.NURSE ---
patient a&ox3, vss, iv inserted, labs drawn, liu cath inserted without doing bladder scan-provider at bedside and was aware, pt was c/o 02/10 bladder area pain- area was firm/distended, after liu cath inserted pt had instant relief of pain and 600 ml of clear yellow urine drained, urine culture obtained and sent from liu, family at bedside, call huynh within reach, will continue to monitor
[2023-06-14 10:26] LABS: MANUAL DIFF FLAG NO
[2023-06-14 10:28] LABS: Basophils Percent Auto 0.4 % (0-2); Eosinophils Percent Auto 0.4 % (0-4); Hematocrit 39.6 % (42.0-52.0); Imm Gran Abs Auto 0.01 X10*3/uL (0.00-0.03); Imm Gran Pct Auto 0.4 % (0.0-0.4); Lymphocytes Absolute Auto 0.6 X10*3/uL (1.2-4.9); Lymphocytes Percent Auto 22.7 % (20-40); Mean Corpuscular HGB Conc 35.4 g/dl (31.0-36.0); Mean Corpuscular Hemoglobin 32.6 pg (27.0-33.0); Mean Corpuscular Volume 92.3 fL (80.0-98.0); Mean Platelet Volume 8.8 fL (9.4-12.4); Monocytes Absolute Auto 0.2 X10*3/uL (0.1-1.2); Monocytes Percent Auto 8.3 % (2-11); Neutrophils Absolute Auto 1.9 x10*3/uL (2.0-8.3); Neutrophils Percent Auto 67.8 % (45-73); Platelet Count 192 X10*3/uL (160-400); Red Blood Count 4.29 X10*6/uL (4.60-5.80); White Blood Count 2.8 X10*3/uL (4.8-10.8)
[2023-06-14 10:28] LABS: Appearance Urine Clear; Color Urine Yellow; Glucose Urine UA Negative (Negative); Leukocyte Esterase Urine Trace (Negative); Nitrite Urine Negative (Negative); UMIC TRIGGER UACC YES; Urine Blood Trace (Negative); Urine Ketones Negative (Negative); Urine Protein Negative (Neg-Trace)
[2023-06-14 10:31] LABS: Bacteria Urine 1+ (None Seen); Hyaline Casts Urine 0-2 /LPF (0-2); Squamous Epithelial Cell Urine 0-2 /HPF (0-2); WBC Urine 0-5 /HPF (0-5)
[2023-06-14 10:44] LABS: Alanine Aminotransferase 11 U/L (0-40); Albumin Level 4.2 g/dL (3.5-5.0); Alkaline Phosphatase 89 U/L (39-117); Anion Gap 15 (12-20); Aspartate Amino Transferase 18 U/L (5-37); Bilirubin Total 0.9 mg/dL (0.0-1.0); Blood Urea Nitrogen 10 mg/dL (9-16); Calcium 9.8 mg/dL (8.4-10.2); Carbon Dioxide 26 mmol/L (22-29); Chloride 88 mmol/L (96-108); Creatinine Clr Calc Pharmacy 44.3; Estimated Glomerular Filt Rate > 60; Glucose Random 97 mg/dL (60-115); Potassium 4.3 mmol/L (3.3-5.1); Sodium 125 mmol/L (135-145); Total Protein 7.1 g/dL (6.5-8.0)
[2023-06-14 12:21] VITALS: BP 145/74; PULSE 85; RESP 18; TEMP 36.3; O2SAT 95
== END 2023-06-14 12:49 | disposition home or self-care (01) ==
PROVIDERS: Registered Nurse Emergency; Emergency Provider Emergency Medicine Emergency Medical Services
DX: R33.9 Retention of urine, unspecified (principal); N39.0 Urinary tract infection, site not specified; Z79.899 Other long term (current) drug therapy
CPT/HCPCS: 36415; 51798; 80053; 81001; 85025; 99283; 99285

== ENCOUNTER 2023-06-25 09:05 | Outpatient (REF) | payer MEDICARE, MEDICAID, SELFPAY ==
[2023-06-25 11:53] LABS: Anion Gap 13 (12-20); Blood Urea Nitrogen 16 mg/dL (9-16); Calcium 10.1 mg/dL (8.4-10.2); Carbon Dioxide 32 mmol/L (22-29); Chloride 93 mmol/L (96-108); Estimated Glomerular Filt Rate > 60; Glucose Random 95 mg/dL (60-115); Potassium 4.6 mmol/L (3.3-5.1); Sodium 133 mmol/L (135-145)
== END 2023-06-25 09:06 | disposition home or self-care (01) ==
LOC: HO.HHCL 09:05
PROVIDERS: Visit Provider Internal Medicine Geriatric Medicine
DX: I50.9 Heart failure, unspecified (principal); E87.1 Hypo-osmolality and hyponatremia
CPT/HCPCS: 36415; 80048

== ENCOUNTER → 2023-06-29 08:49 | Outpatient (BNVA) | payer MEDICARE, MEDICAID, SELFPAY | PROVIDERS: Visit Provider Urology | DX: R31.29 Other microscopic hematuria (principal); R33.8 Other retention of urine | CPT/HCPCS: 51700; 51798 ==

== ENCOUNTER 2023-07-01 09:06 | Outpatient (REF) | payer MEDICARE, MEDICAID, SELFPAY ==
[2023-07-01 10:37] LABS: Appearance Urine Cloudy; Color Urine Yellow; Glucose Urine UA Negative (Negative); Leukocyte Esterase Urine Large (3+) (Negative); Nitrite Urine Negative (Negative); PH 8.5 (5.0-9.0); UMIC TRIGGER UA YES; Urine Blood Large (3+) (Negative); Urine Ketones Negative (Negative); Urine Protein 30 (1+) mg/dL (Neg-Trace)
[2023-07-01 10:43] LABS: Bacteria Urine 4+ (None Seen); Hyaline Casts Urine 0-2 /LPF (0-2); RBC Urine >20 /HPF (0-2); Squamous Epithelial Cell Urine 0-2 /HPF (0-2); WBC Urine >50 /HPF (0-5)
== END 2023-07-01 09:07 | disposition home or self-care (01) ==
LOC: HO.LAB 09:06
PROVIDERS: PCP Internal Medicine Geriatric Medicine; Visit Provider Urology
DX: Z13.89 Encounter for screening for other disorder (principal)
CPT/HCPCS: 81001; 87086

== ENCOUNTER 2023-07-01 14:31 | Emergency (ER) | payer MEDICARE, MEDICAID, SELFPAY ==
--- NOTE | ~2023-07-01 | CT_ITS ---
EXAMINATION: CT abdomen pelvis wo IV con CLINICAL INFORMATION: Reason for Exam right sided pain, hematuria COMPARISON: 2021 TECHNIQUE: Multidetector volumetric imaging was performed from the superior aspect of the liver through the pubic symphysis a noncontrasted study Sagittal and coronal reformatted images were obtained on the technologist's workstation. This CT examination was performed using dose optimization techniques as appropriate, variously including the following: *Automated exposure control *Adjustment of mA and/or kV according to patient size (this includes techniques or standardized protocols for targeted exams where dose is matched to indication/reason for exam; i.e. extremities or head) *Use of iterative reconstruction technique DLP: 315 mGy-cm FINDINGS: CT is limited due to lack of contrast, patient body habitus and positioning and paucity of intraperitoneal fat. LOWER THORAX: Bibasilar pleural effusion with adjacent compression atelectasis. HEPATOBILIARY: No focal hepatic lesions. No biliary ductal dilatation. GALLBLADDER: Gallbladder unremarkable. SPLEEN: Spleen is normal in size. PANCREAS: Pancreas could not be well distinguished from surrounding bowel due to crowding of bowel loops, paucity of intraperitoneal fat and lack of contrast. STOMACH AND GASTROINTESTINAL TRACT: Stomach is grossly unremarkable. Excess amount of stool in the colon suggesting constipation. There is diverticulosis without evidence of acute diverticulitis. Appendix could not be visualized. ADRENALS: It was difficult to accurately characterize the adrenals due to severe body dysmorphic positioning caused by scoliosis combined with lack of contrast and paucity of retroperitoneal fat. There is fullness of left adrenal, probably adrenal nodule, overall the appearance has not significantly changed. KIDNEYS/URETERS: Redemonstration of hyperdense structure protruding from the anterior cortex right kidney measure about 1 cm, similar structure protruding from the lower pole left kidney measures 1.3 cm, both have not changed, not well characterized on this noncontrast CT, was not specific on prior MRI and may require correlation with follow-up imaging ultrasound or contrast-enhanced CT scan. There is 3 mm nonobstructing stone in the left kidney unchanged. Right kidney is normal unremarkable. URINARY BLADDER: There are layering stones in the urinary bladder probably recently passed stones. PELVIC VISCERA: Prostate is enlarged measuring 4.5 x 5.3 cm. PERITONEUM: No free air or fluid. LYMPH NODES: No lymphadenopathy. VASCULAR:Abdominal aorta normal in size, no aneurysm found. BONES, ABDOMINAL WALL AND SOFT TISSUES: Advanced levoscoliosis, degenerative osteoarthritic changes. No CT evidence of pathologic fractures. CT/CT abdomen pelvis wo IV con IMPRESSION: 1. CT is limited due to patient body habitus, positioning and paucity of intraperitoneal fat. 2. No CT evidence of acute intra-abdominal process to explain patient's pain symptoms. 3. There are layering stones in the urinary bladder probably recently passed stones. 4. There is 3 mm nonobstructing stone in the left kidney. No hydronephrosis. 5. Excess amount of stool in the colon suggesting constipation, please correlate clinically.. 6. Diverticulosis without evidence of acute diverticulitis. 7. Prostatomegaly. 8. Bibasilar pleural effusion with adjacent compression atelectasis. 9. Redemonstration of left adrenal nodule/hypertrophy not well imaged due to complexity of positioning and lack of contrast. It has been recommended that this be evaluated by follow-up CT adrenal protocol based on prior MRI from 09/18/2021 10. There are 2 hypodense structures protruding from the left kidney as described above, unchanged could be hemorrhagic cysts versus renal lesions, these also can be evaluated by follow-up CT with contrast.
[2023-07-01 14:34] VITALS: BP 126/85; PULSE 90; RESP 18; TEMP 36.6; O2SAT 96; BMI 26.4
--- NOTE | 2023-07-01 14:34 | ED.GENADULT ---
HPI - General Adult General Chief complaint: Urogenital-Male Stated complaint: Blood in Urine Pain Time Seen by Provider: 07/01/23 14:34 History of Present Illness HPI narrative: The patient is a 72-year-old man who was seen in the emergency room twice earlier this month because of lower abdominal pain and inability to void. On June 04 bladder scan showed greater than 450 mL of urine in his bladder and he was given a urinary catheter. He was discharged from the emergency room at that time. The day prior to that visit he had been seen in the emergency department for congestive heart failure and had been discharged on furosemide. He apparently had the catheter removed on June 13 by his PCP and then re-presented to the emergency room on June 14 once again in urinary retention. At that time his bladder scan showed more than 600 mL of urine in the bladder and he was again given urinary catheter. He will also given antibiotics at that time although his urinalysis was unremarkable. He was prescribed 7 days of cefuroxime Two days ago he followed up at the urology office and had the catheter removed. Apparently he was able to void over the last 2 days but he had right inguinal pain today which he has had before and went to the urology office where he was apparently seen by a nurse. He went home after going to the urology office and then apparently developed what he thought was blood in his urine in his brought him to the emergency room. He has not had a fever. He indicates that he has pain in his right abdomen, right groin, and right flank. He does not know if he has ever had a kidney stone. The patient had apparently submitted a urine specimen this morning at the urology office. The office later called the patient's and informed them that an antibiotic prescription had been called in to their pharmacy. The prescription was Bactrim DS b.i.d. x7 days. Related Data Home Medications Medication Instructions Recorded Confirmed albuterol sulfate 90 mcg/actuation 2 puff inhalation Q4-6H PRN 06/03/23 06/04/23 aerosol inhaler atorvastatin 20 mg tablet 20 mg PO DAILY 06/03/23 06/04/23 clotrimazole-betamethasone 1 appl topical BID 06/03/23 06/04/23 %-0.05 % topical cream gabapentin 300 mg capsule 300 mg PO TID 06/03/23 06/04/23 hydrochlorothiazide 12.5 mg tablet mg PO 06/03/23 06/04/23 ketotifen fumarate 0.025 % (0.035 1 drp ophthalmic (eye) BID 06/03/23 06/04/23 %) eye drops latanoprost 0.005 % eye drops 1 drp ophthalmic (eye) QPM 06/03/23 06/04/23 naproxen 500 mg tablet 500 mg PO BID 06/03/23 06/04/23 tamsulosin 0.4 mg capsule 0.8 mg PO DAILY 06/03/23 06/04/23 Previous Rx's Medication Instructions Recorded furosemide 20 mg tablet (Lasix) 10 mg (1/2 x 20 mg) PO Q OTHER DAY 06/04/23 #3 tabs cefuroxime axetil 500 mg tablet 500 mg PO BID #14 tabs 06/14/23 sulfamethoxazole 800 1 tab PO BID UTI 7 days #14 tabs 07/01/23 mg-trimethoprim 160 mg tablet (Bactrim DS) Allergies Allergy/AdvReac Type Severity Reaction Status Date / Time No Known Allergies Allergy Verified 07/01/23 14:34 [facility] Past Medical History Medical History (Updated 07/01/23 @ 19:33 by Will Faria MD) Urinary retention Surgical History History of surgery on lower extremity H/O inguinal hernia repair Social History Social History Alcohol intake: never Smoked in Last 30 Days: No Use of substances other than those prescribed or required for medical reasons: No Advance Directives: No Advance Directives Information Provided: No Physical Exam ED Vital Signs: Vital Signs - 24 hr 07/01/23 14:34 07/01/23 18:29 07/01/23 19:30 Temperature 98 F 97.9 F 97.8 F Pulse Rate 90 84 90 Respiratory Rate 18 16 16 Blood Pressure 126/85 154/79 H 140/82 H Pulse Oximetry 96 97 97 Oxygen Delivery Method Room Air Room Air Room Air BMI result Body Mass Index 26.4 Course Course Course Narrative: This is a rapid medical exam: Additional HPI, ROS, PE not included below will be deferred to primary provider. Patient is a 72-year-old male with history of recently diagnosed CHF, inguinal hernia repair, urinary retention presenting to the ED with complaint of pain to both testicles since yesterday and hematuria today. Patient had liu removed in urology office on Thursday, was advised to drink water and use Tylenol for pain. Patient seen in this ED twice recently with similar symptoms. He had an abdominal MRI and scrotal U/S in April, found to have bilat hydrocele and was referred to general surgery by urology. Plan: UA,labs Medications Administered Discontinued Medications Generic Name Dose Route Start Last Admin Trade Name Emil PRN Reason Stop Dose Admin Acetaminophen 650 mg 07/01/23 18:07 07/01/23 18:30 Acetaminophen 325 Mg Tablet PO 07/01/23 18:08 650 mg ONCE ONE Administration Ceftriaxone Sodium 1 gm/ 50 mls @ 100 mls/hr 07/01/23 17:48 07/01/23 18:59 Sodium Chloride IV 07/01/23 18:17 Infused ONCE ONE Infusion Ibuprofen 400 mg 07/01/23 18:07 07/01/23 18:30 Ibuprofen 400 Mg Tablet PO 07/01/23 18:08 400 mg ONCE ONE Administration Medical Decision Making Medical Decision Making [facility] Narrative: The patient is a very pleasant 72-year-old who has been having problems with urinary retention over the last several weeks. Twice he has been given an indwelling catheter, 1st on June 04 and again on June 14. On the 2nd occasion he was prescribed cefuroxime 500 mg for 7 days. However his urinalysis on that occasion was unremarkable and it did not reflex to a culture. The patient had his catheter from June 14 removed at the urology office 2 days ago. Today he had right-sided pain and gross hematuria. He had submitted urinalysis earlier this morning which showed pyuria. The urology office called in a prescription for Bactrim that was not started prior to his presentation here. He came to the emergency room because he had had some gross hematuria at home after being at the urology office this morning. Here the patient does not seem toxic or septic. He complained of right-sided pain. A noncontrast CT scan of the abdomen and pelvis shows layering stones in his bladder but does not show any acute ureteral stones or hydronephrosis. Here is afebrile. He has not tachycardic. His white count is 9.9 with a mild left shift. CRP is mildly elevated at 3.69. Overall he does not seem toxic or septic. He was given 1 g of IV ceftriaxone. He was given 400 mg of ibuprofen and acetaminophen. He seemed to feel much better. His sodium is 125. Interestingly his sodium was 125 on his ER visit on June 14 but he had outpatient labs 5 days ago that showed a sodium of 133. The patient was offered hospitalization. I spoke with the patient and his using a Malaysian speech language pathologist assistant. Ultimately the patient indicates that he feels well enough to be at home and would prefer to be at home. He also has an appointment with his PCP tomorrow. I think he looks well enough for outpatient management and he can discuss his sodium levels with his PCP tomorrow. He should return if he feels worse. Lab Data 07/01/23 16:47 07/01/23 16:47 Labs: Lab Results 07/01/23 Range/Units 16:47 WBC 9.9 (4.8-10.8) X10*3/uL RBC 3.89 L (4.60-5.80) X10*6/uL Hgb 12.8 L (14.0-18.0) g/dl Hct 36.7 L (42.0-52.0) % MCV 94.3 (80.0-98.0) fL MCH 32.9 (27.0-33.0) pg MCHC 34.9 (31.0-36.0) g/dl RDW 13.2 (11.0-16.0) % Plt Count 141 L D (160-400) X10*3/uL MPV 8.8 L (9.4-12.4) fL Immature Gran % (Auto) 0.5 H (0.0-0.4) % Neut % (Auto) 80.4 H (45-73) % Lymph % (Auto) 10.9 L (20-40) % [place] % (Auto) 8.1 (2-11) % Eos % (Auto) 0.0 (0-4) % Baso % (Auto) 0.1 (0-2) % Lymph # (Auto) 1.1 L (1.2-4.9) X10*3/uL [place] # (Auto) 0.8 (0.1-1.2) X10*3/uL Eos # (Auto) 0.0 (0.0-0.4) X10*3/uL Baso # (Auto) 0.0 (0.0-0.2) X10*3/uL Abs Immat Gran (auto) 0.05 H (0.00-0.03) X10*3/uL Absolute Neuts (auto) 8.0 (2.0-8.3) x10*3/uL Absolute Nucleated RBC 0.000 (0.0-0.012) X10*3/uL Nucleated RBC % (auto) 0.0 (0.0-0.2) /100WBC Sodium 125 L (135-145) mmol/L Potassium 5.0 (3.3-5.1) mmol/L Chloride 90 L (96-108) mmol/L Carbon Dioxide 29 (22-29) mmol/L Anion Gap 11 L (12-20) BUN 14 (9-16) mg/dL Creatinine 0.68 (0.5-1.4) mg/dL Estim Creat Clear Calc 46.1 Estimated GFR > 60 Random Glucose 105 (60-115) mg/dL Calcium 9.1 D (8.4-10.2) mg/dL Total Bilirubin 0.9 (0.0-1.0) mg/dL Direct Bilirubin 0.3 (0.0-0.5) mg/dL AST 15 (5-37) U/L ALT 12 (0-40) U/L Alkaline Phosphatase 85 (39-117) U/L C-Reactive Protein 3.69 H (< or = 0.50) mg/dL Total Protein 6.4 L (6.5-8.0) g/dL Albumin 3.8 (3.5-5.0) g/dL Urine Color Heard A Urine Appearance Turbid Urine pH 7.0 (5.0-9.0) Ur Specific [place] 1.020 (1.005-1.025) Urine Protein 100 (2+) H (Neg-Trace) mg/dL Urine Glucose (UA) Negative (Negative) mg/dL Urine Ketones Negative (Negative) mg/dL Urine Blood Large (3+) H (Negative) Urine Nitrite Positive H (Negative) Ur Leukocyte Esterase Large (3+) H (Negative) Urine RBC >20 H (0-2) /HPF Urine WBC >50 H (0-5) /HPF Ur Squamous Epith Cells 0-2 (0-2) /HPF Urine Bacteria 4+ (None Seen) Hyaline Casts 0-2 (0-2) /LPF Discharge Plan Discharge Clinical Impression: Urinary tract infection, Hyponatremia Patient Disposition: Home, Self-Care Additional Instructions: You received a dose of IV antibiotics today. You do not need another dose of antibiotic tonight. Your son has picked up the antibiotic prescription prescribed by the urologist. Please start taking this medication tomorrow morning. Take that medication 2 times a day. You may use acetaminophen (Tylenol) as needed for pain. You may take 650 mg of acetaminophen (Tylenol) up to 3 times a day. Please keep your appointment with your primary care doctor tomorrow. You should have your sodium level rechecked tomorrow with your primary care doctor. Your sodium today was 125. Return to the emergency room if you feel significantly worse. Prescriptions: No Action sulfamethoxazole-trimethoprim [Bactrim DS] 800-160 mg tablet 1 tab PO BID 7 Days Qty: 14 0RF furosemide [Lasix] 20 mg tablet 10 mg PO Q OTHER DAY Qty: 3 0RF Rx Instructions: Thursday, Thursday, Thursday cefuroxime axetil 500 mg tablet 500 mg PO BID Qty: 14 0RF naproxen 500 mg tablet 500 mg PO BID tamsulosin 0.4 mg capsule 0.8 mg PO DAILY clotrimazole-betamethasone 1-0.05 % cream topical BID atorvastatin 20 mg tablet 20 mg PO DAILY gabapentin 300 mg capsule 300 mg PO TID latanoprost 0.005 % drops 1 drp ophthalmic (eye) QPM ketotifen fumarate 0.025 % (0.035 %) drops 1 drp ophthalmic (eye) BID Rx Instructions: administer at least 8 hours apart hydrochlorothiazide 12.5 mg tablet PO albuterol sulfate 90 mcg/actuation HFA aerosol inhaler 2 puff inhalation Q4-6H PRN
[2023-07-01 16:52] LABS: MANUAL DIFF FLAG NO
[2023-07-01 16:54] LABS: Basophils Percent Auto 0.1 % (0-2); Hematocrit 36.7 % (42.0-52.0); Hemoglobin 12.8 g/dl (14.0-18.0); Imm Gran Abs Auto 0.05 X10*3/uL (0.00-0.03); Imm Gran Pct Auto 0.5 % (0.0-0.4); Lymphocytes Absolute Auto 1.1 X10*3/uL (1.2-4.9); Lymphocytes Percent Auto 10.9 % (20-40); Mean Corpuscular HGB Conc 34.9 g/dl (31.0-36.0); Mean Corpuscular Hemoglobin 32.9 pg (27.0-33.0); Mean Corpuscular Volume 94.3 fL (80.0-98.0); Mean Platelet Volume 8.8 fL (9.4-12.4); Monocytes Absolute Auto 0.8 X10*3/uL (0.1-1.2); Monocytes Percent Auto 8.1 % (2-11); Neutrophils Percent Auto 80.4 % (45-73); Platelet Count 141 X10*3/uL (160-400); Red Blood Count 3.89 X10*6/uL (4.60-5.80); Red Cell Distribution Width 13.2 % (11.0-16.0); White Blood Count 9.9 X10*3/uL (4.8-10.8)
[2023-07-01 17:09] LABS: Alanine Aminotransferase 12 U/L (0-40); Albumin Level 3.8 g/dL (3.5-5.0); Alkaline Phosphatase 85 U/L (39-117); Anion Gap 11 (12-20); Aspartate Amino Transferase 15 U/L (5-37); Bilirubin Direct 0.3 mg/dL (0.0-0.5); Bilirubin Total 0.9 mg/dL (0.0-1.0); Blood Urea Nitrogen 14 mg/dL (9-16); C Reactive Protein 3.69 mg/dL (< or = 0.50); Calcium 9.1 mg/dL (8.4-10.2); Carbon Dioxide 29 mmol/L (22-29); Chloride 90 mmol/L (96-108); Creatinine Clr Calc Pharmacy 46.1; Estimated Glomerular Filt Rate > 60; Glucose Random 105 mg/dL (60-115); Sodium 125 mmol/L (135-145); Total Protein 6.4 g/dL (6.5-8.0)
[2023-07-01 17:14] LABS: Appearance Urine Turbid; Color Urine Orange; Glucose Urine UA Negative (Negative); Leukocyte Esterase Urine Large (3+) (Negative); Nitrite Urine Positive (Negative); UMIC TRIGGER UACC YES; Urine Blood Large (3+) (Negative); Urine Ketones Negative (Negative); Urine Protein 100 (2+) mg/dL (Neg-Trace)
[2023-07-01 17:17] LABS: Bacteria Urine 4+ (None Seen); Hyaline Casts Urine 0-2 /LPF (0-2); RBC Urine >20 /HPF (0-2); Squamous Epithelial Cell Urine 0-2 /HPF (0-2); UACC Culture Trigger YES; WBC Urine >50 /HPF (0-5)
[2023-07-01] MEDS: cefTRIAXone sodium 1 GM in 0.9 % Sodium Chloride 50 ML IV (18:09)
[2023-07-01 18:29] VITALS: BP 154/79; PULSE 84; RESP 16; TEMP 36.6; O2SAT 97
[2023-07-01] MEDS: Ibuprofen 400 MG TABLET PO (18:30)
[2023-07-01] MEDS: Acetaminophen 325 MG TABLET 650 MG PO (18:30)
--- NOTE | 2023-07-01 18:34 | PC.NURSE ---
pt a&o x4, pleasant, calm, and cooperative. 22G IV placed to left forearm. IV abx hung and pt medicated per mar for pain. pt provided with extra food tray per MD Ina. pt resting quietly on stretcher with at bedside. korean speaking only. rr even/unlabored. call huynh within reach. plan of care ongoing.
[2023-07-01 19:30] VITALS: BP 140/82; PULSE 90; RESP 16; TEMP 36.6; O2SAT 97
== END 2023-07-01 20:00 | disposition home or self-care (01) ==
PROVIDERS: Emergency Provider Emergency Medicine; PCP Internal Medicine Geriatric Medicine
DX: N39.0 Urinary tract infection, site not specified (principal); E87.1 Hypo-osmolality and hyponatremia; R33.9 Retention of urine, unspecified; N21.0 Calculus in bladder
CPT/HCPCS: 36415; 51798; 74176; 80048; 80076; 81001; 81003; 85025; 86140; 87086; 87088; 87186; 96365; 99284; 99285; J0696

== ENCOUNTER 2023-07-02 10:53 | Outpatient (REF) | payer MEDICARE, MEDICAID, SELFPAY ==
[2023-07-02 12:14] LABS: Anion Gap 14 (12-20); Blood Urea Nitrogen 11 mg/dL (9-16); Calcium 9.5 mg/dL (8.4-10.2); Carbon Dioxide 28 mmol/L (22-29); Chloride 90 mmol/L (96-108); Estimated Glomerular Filt Rate > 60; Glucose Random 105 mg/dL (60-115); Potassium 4.5 mmol/L (3.3-5.1); Sodium 127 mmol/L (135-145)
== END 2023-07-02 10:54 | disposition home or self-care (01) ==
LOC: HO.HHCL 10:53
PROVIDERS: Visit Provider Internal Medicine Geriatric Medicine
DX: Z13.89 Encounter for screening for other disorder (principal)
CPT/HCPCS: 36415; 80048

== ENCOUNTER 2023-07-04 08:29 | Inpatient (IN) | payer MEDICARE, MEDICAID, SELFPAY ==
--- NOTE | ~2023-07-04 | CT_ITS ---
EXAMINATION: CT ABDOMEN AND PELVIS WITHOUT CONTRAST CLINICAL INFORMATION: Right lower quadrant pain. COMPARISON: CT abdomen/pelvis 07/01/2023. TECHNIQUE: Multidetector volumetric imaging was performed from the superior aspect of the liver through the pubic symphysis. Sagittal and coronal reformatted images were obtained on the technologist's workstation. This CT examination was performed using dose optimization techniques as appropriate, variously including the following: *Automated exposure control *Adjustment of mA and/or kV according to patient size (this includes techniques or standardized protocols for targeted exams where dose is matched to indication/reason for exam; i.e. extremities or head) *Use of iterative reconstruction technique DLP: 290 mGy-cm FINDINGS: The lack of intravenous contrast limits evaluation of the solid visceral organs including the liver, spleen, pancreas, and kidneys. LUNG BASES: Partially seen cardiomegaly with redemonstration of a moderate-sized pericardial effusion, not significantly changed. Redemonstration of small bilateral pleural effusions with associated compressive atelectasis, not significantly changed. LIVER, GALLBLADDER, AND BILIARY TREE: Limited noncontrast motion degraded examination. Normal liver. No findings to suspect acute cholecystitis. No biliary ductal dilatation. PANCREAS: Limited examination. No significant peripancreatic inflammatory changes. SPLEEN: Normal. ADRENAL GLANDS: Normal right adrenal gland. Left adrenal gland is not well seen. KIDNEYS AND URETERS: Again noted nonobstructive 0.2 cm calculus in the left kidney. No hydronephrosis. No significant perinephric fat stranding. Redemonstration of a homogeneously hyperdense proteinaceous/hemorrhagic cyst in the lower left kidney measuring 1.3 cm and in the upper left kidney measuring 1.1 cm, for which no imaging follow-up is recommended. BLADDER: Unremarkable. GASTROINTESTINAL TRACT: Limited evaluation due to motion and lack of oral contrast. No significant disproportional dilatation to suspect a bowel obstruction. Moderate degree of colonic stool burden. ABDOMINAL WALL: No significant hernia is appreciated. LYMPH NODES: Limited evaluation due to paucity of abdominal fat and lack of IV contrast. No bulky adenopathy. VASCULAR: Normal caliber abdominal aorta. PELVIC VISCERA: Large prostate protruding into the bladder base, transverse diameter 5.2 cm. Stable left-sided phleboliths along the posterior aspect of the bladder. OSSEOUS STRUCTURES: No acute or aggressive appearing osseous findings. Degenerative changes of the spine. CT/CT abdomen pelvis wo IV con IMPRESSION: 1. Limited examination due to motion and lack of IV contrast. 2. Moderate degree of colonic stool burden suggesting constipation. 3. Nonobstructive 0.2 cm calculus in the left kidney. 4. Redemonstration of a moderate-sized pericardial effusion and small bilateral pleural effusions with associated compressive atelectasis, not significantly changed. 5. Large prostate protruding into the bladder base.
--- NOTE | ~2023-07-04 | US_ITS ---
EXAMINATION: US SCROTUM CLINICAL INFORMATION: Testicular pain. COMPARISON: Scrotal ultrasound 04/06/2023. TECHNIQUE: A sonogram of the scrotum was performed assessing blue-scale appearance and color Doppler flow. Spectral Doppler analysis of the arterial and venous flow were performed in the testes bilaterally. FINDINGS: RIGHT: Right testicle measures 4.5 x 2.6 x 3.1 cm, volume 18.9 mL. No focal testicular parenchymal lesions are visualized. Spectral Doppler analysis of the arterial and venous flow is normal in the right testis. Right epididymis appears enlarged and hyperemic. Moderate size hydrocele. No varicocele. LEFT: Left testicle measures 4.1 x 2.2 x 2.8 cm, volume 12.8 mL. No focal testicular parenchymal lesions are visualized. A small appendix testis is noted measuring 0.4 cm. Spectral Doppler analysis of the arterial and venous flow is normal in the left testis. Very large hydrocele, increased compared to 04/06/2023. Left epididymis is not well seen. No varicocele. ADDITIONAL FINDINGS: Subcutaneous swelling/edema. US/US scrotum doppler IMPRESSION: 1. Very large left-sided hydrocele and moderate right hydrocele, increased compared to prior. 2. Increased size of the right epididymis with hyperemia, recommend clinical correlation for acute epididymitis. 3. Soft tissue swelling.
--- NOTE | ~2023-07-04 | US_ITS ---
EXAMINATION: US SCROTUM CLINICAL INFORMATION: Testicular pain. COMPARISON: Scrotal ultrasound 04/06/2023. TECHNIQUE: A sonogram of the scrotum was performed assessing blue-scale appearance and color Doppler flow. Spectral Doppler analysis of the arterial and venous flow were performed in the testes bilaterally. FINDINGS: RIGHT: Right testicle measures 4.5 x 2.6 x 3.1 cm, volume 18.9 mL. No focal testicular parenchymal lesions are visualized. Spectral Doppler analysis of the arterial and venous flow is normal in the right testis. Right epididymis appears enlarged and hyperemic. Moderate size hydrocele. No varicocele. LEFT: Left testicle measures 4.1 x 2.2 x 2.8 cm, volume 12.8 mL. No focal testicular parenchymal lesions are visualized. A small appendix testis is noted measuring 0.4 cm. Spectral Doppler analysis of the arterial and venous flow is normal in the left testis. Very large hydrocele, increased compared to 04/06/2023. Left epididymis is not well seen. No varicocele. ADDITIONAL FINDINGS: Subcutaneous swelling/edema. US/US scrotum IMPRESSION: 1. Very large left-sided hydrocele and moderate right hydrocele, increased compared to prior. 2. Increased size of the right epididymis with hyperemia, recommend clinical correlation for acute epididymitis. 3. Soft tissue swelling.
--- NOTE | ~2023-07-04 | CT_ITS ---
EXAMINATION: CT ABDOMEN AND PELVIS WITH CONTRAST CLINICAL INFORMATION: Worsening scrotal pain COMPARISON: Noncontrast CT abdomen/pelvis and scrotal ultrasound 07/04/2023 TECHNIQUE: Multiple axial images were obtained from the superior aspect of the liver through the pubic symphysis after the administration of 75 mL of intravenous Omnipaque 350. Images were evaluated on independent dedicated 3-D workstation and 3-D images were reconstructed with concurrent radiologist supervision and subsequently interpreted. Oral contrast was not administered. This CT examination was performed using dose optimization techniques as appropriate, variously including the following: *Automated exposure control *Adjustment of mA and/or kV according to patient size (this includes techniques or standardized protocols for targeted exams where dose is matched to indication/reason for exam; i.e. extremities or head) *Use of iterative reconstruction technique DLP: 298 mGy-cm FINDINGS: LUNG BASES: Small right pleural effusion. CARDIOMEDIASTINUM: Heart normal in size with moderate-sized pericardial effusion. No coronary artery calcification. LIVER: Homogeneous in attenuation. Normal in size. GALLBLADDER: Noninflamed. BILIARY SYSTEM: No intrahepatic or extrahepatic biliary dilation. PANCREAS: Homogeneous in attenuation. SPLEEN: Normal in size. GENITOURINARY: Bilateral kidneys demonstrate symmetric enhancement. No perinephric fluid collection. No renal calculi. No hydroureteronephrosis. ADRENAL GLANDS: Unremarkable. REPRODUCTIVE: Prostamegaly. GASTROINTESTINAL: The visualized alimentary tract is normal in course. No evidence of obstruction. APPENDIX: The appendix is not visualized; however, no pericecal inflammatory changes are seen in the right lower quadrant. PERITONEUM: Trace free fluid in the pelvis. No pneumoperitoneum. No organized fluid collection. VASCULATURE: The abdominal aorta is normal in course and caliber. LYMPH NODES: No pathologically enlarged abdominal or pelvic lymph nodes. SOFT TISSUES/MUSCULOSKELETAL: Dilated blood vessels seen in the right inguinal canal. Multilevel degenerative changes of the spine. No focal osseous lesions. CT/CT abdomen pelvis w IV con IMPRESSION: No acute abdominal or pelvic pathology. Dilated blood vessel seen in the right inguinal canal. Refer to prior scrotal ultrasound on 07/04/2023. Fleischner guidelines were followed.
[2023-07-04 08:44] VITALS: BP 128/78; BP 146/79; PULSE 104; PULSE 95; RESP 20; TEMP 36.9; O2SAT 97; BMI 25.0
--- NOTE | 2023-07-04 08:56 | ED.ABDPAIN ---
HPI - Abdominal Pain General Chief Complaint: Abdominal Pain Stated Complaint: ABD PAIN SWOLLEN TESTICLES BACK PAIN Time Seen by Provider: 07/04/23 10:02 Source: patient and family Mode of arrival: ambulatory Limitations: no limitations History of Present Illness HPI narrative: This is a 72-year-old male history of renal mass, hydrocele bilaterally, urinary retention, CHF, inguinal hernia repair, pectus carinatumpresenting to the emergency department with complaints of lower abdominal discomfort, bilateral testicular pain, redness and swelling X a few weeks worsening. Also reporting associated dysuria. Just hasnt been feeling right. Was recently on bactrim and doesnt seem to be helping. Denies n/v/d, cp,sob, headache, vision changes, dizziness. Related Data Home Medications Medication Instructions Recorded Confirmed albuterol sulfate 90 mcg/actuation 2 puff inhalation Q4-6H PRN 06/03/23 06/04/23 aerosol inhaler atorvastatin 20 mg tablet 20 mg PO DAILY 06/03/23 06/04/23 clotrimazole-betamethasone 1 appl topical BID 06/03/23 06/04/23 %-0.05 % topical cream gabapentin 300 mg capsule 300 mg PO TID 06/03/23 06/04/23 hydrochlorothiazide 12.5 mg tablet mg PO 06/03/23 06/04/23 ketotifen fumarate 0.025 % (0.035 1 drp ophthalmic (eye) BID 06/03/23 06/04/23 %) eye drops latanoprost 0.005 % eye drops 1 drp ophthalmic (eye) QPM 06/03/23 06/04/23 naproxen 500 mg tablet 500 mg PO BID 06/03/23 06/04/23 tamsulosin 0.4 mg capsule 0.8 mg PO DAILY 06/03/23 06/04/23 Previous Rx's Medication Instructions Recorded furosemide 20 mg tablet (Lasix) 10 mg (1/2 x 20 mg) PO Q OTHER DAY 06/04/23 #3 tabs cefuroxime axetil 500 mg tablet 500 mg PO BID #14 tabs 06/14/23 levofloxacin 500 mg tablet 500 mg PO DAILY 7 days #7 tabs 07/03/23 Allergies Allergy/AdvReac Type Severity Reaction Status Date / Time No Known Allergies Allergy Verified 07/01/23 14:34 [facility] Past Medical History Medical History (Updated 07/04/23 @ 10:38 by ILYA Garcia) Urinary retention Surgical History History of surgery on lower extremity H/O inguinal hernia repair Social History Social History Alcohol intake: never Smoked in Last 30 Days: No Use of substances other than those prescribed or required for medical reasons: No Advance Directives: No Advance Directives Information Provided: No Physical Exam ED Vital Signs: Vital Signs - 24 hr 07/04/23 08:44 07/04/23 10:13 Temperature 98.4 F 98.3 F Pulse Rate 95 88 Respiratory Rate 20 17 Blood Pressure 146/79 H 145/87 H Pulse Oximetry 97 98 Oxygen Delivery Method Room Air Room Air BMI result Body Mass Index 25.0 vss Appearance: Alert.? Oriented X3.? No acute distress.? Head: Normocephalic, atraumatic, no step-offs or deformities Eyes: Pupils equal, round and reactive to light.? ENT: Pharynx normal.? Neck: Normal inspection.? Neck supple.? CVS: Normal heart rate and rhythm.? Pulses normal.? + pectus carinatum Respiratory: No respiratory distress.? Breath sounds normal.? Abdomen/ sensative exam: Soft and nontender.? TTP to scrotum b/l, w/ significant erythema and warmth overlying, + hydroceles b/l L>R Skin: Skin warm and dry.? Normal skin color.? Normal skin turgor.? Extremities: No lower extremity edema.? No calf ttp. 5/5 strength to bilateral upper and lower extremities Neuro: Oriented X 3.? No motor deficit.? No sensory deficit. CN 2-12 intact Course Reevaluation(s) Reevaluation #1: Discuss this case with Dr. Rodgers urology who would like medical admit urology will follow. Time: 09:51 Reevaluation #2: CBC with leukocytosis and left shift. Chemistry hyponatremia 125, normal saline ordered will infused slowly. CRP elevated 18.27. UA no infection. Scrotal ultrasound with very large left-sided hydrocele and moderate right hydrocele increased compared to prior. Increased size of right epididymis and hyperemia recommend clinical correlation for acute epididymitis. Soft tissue swelling also noted. CT abdomen pending. Zosyn hanging. Fluids given. Plan hospital admission. Dr. Nevin rodriguez Time: 10:37 Medical Decision Making Medical Decision Making [facility] Narrative: 72-year-old male presents with complaints of lower abdominal discomfort, bilateral testicular pain, redness and swelling X a few weeks worsening w/ a/c dysuria PE- TTP to scrotum b/l, w/ significant erythema and warmth overlying, + hydroceles b/l. mild lower abdominal discomfort on palpation concerns for scrotal cellulitis w/ b/l hydrorcele and possible UTI. Less likely fourniers or necrotizing infection. Unlikely intraabdominal etiology, acute abdomen, torsion. Epididymitis and orchitis remain on the differential. Plan labs, urine, imaging. Differential Diagnosis Differential Diagnoses: The differential diagnosis associated with the presentation includes concerns for scrotal cellulitis w/ b/l hydrorcele and possible UTI. Less likely fourniers or necrotizing infection. Unlikely intraabdominal etiology, acute abdomen, torsion. Epididymitis and orchitis remain on the differential. Admission/Observation Consideration of admission/observation: Escalation of care including admission/observation considered likely has failed po atbx Lab Data [facility] Lab Attestation statement: I reviewed the patient's lab results. 07/04/23 09:45 07/04/23 09:45 Labs: Lab Results 07/04/23 07/04/23 Range/Units 09:45 09:48 WBC 12.9 H (4.8-10.8) X10*3/uL RBC 4.29 L (4.60-5.80) X10*6/uL Hgb 14.1 (14.0-18.0) g/dl Hct 40.3 L (42.0-52.0) % MCV 93.9 (80.0-98.0) fL MCH 32.9 (27.0-33.0) pg MCHC 35.0 (31.0-36.0) g/dl RDW 13.0 (11.0-16.0) % Plt Count 175 (160-400) X10*3/uL MPV 9.2 L (9.4-12.4) fL Immature Gran % (Auto) 0.9 H (0.0-0.4) % Neut % (Auto) 87.9 H (45-73) % Lymph % (Auto) 5.3 L (20-40) % [place] % (Auto) 5.7 (2-11) % Eos % (Auto) 0.1 (0-4) % Baso % (Auto) 0.1 (0-2) % Lymph # (Auto) 0.7 L (1.2-4.9) X10*3/uL [place] # (Auto) 0.7 (0.1-1.2) X10*3/uL Eos # (Auto) 0.0 (0.0-0.4) X10*3/uL Baso # (Auto) 0.0 (0.0-0.2) X10*3/uL Abs Immat Gran (auto) 0.12 H (0.00-0.03) X10*3/uL Absolute Neuts (auto) 11.3 H (2.0-8.3) x10*3/uL Absolute Nucleated RBC 0.000 (0.0-0.012) X10*3/uL Nucleated RBC % (auto) 0.0 (0.0-0.2) /100WBC Sodium 125 L (135-145) mmol/L Potassium 4.5 (3.3-5.1) mmol/L Chloride 89 L (96-108) mmol/L Carbon Dioxide 26 (22-29) mmol/L Anion Gap 15 (12-20) BUN 9 (9-16) mg/dL Creatinine 0.68 (0.5-1.4) mg/dL Estim Creat Clear Calc 44.9 Estimated GFR > 60 Random Glucose 95 (60-115) mg/dL Lactic Acid 1.2 (0.5-2.0) mmol/L Calcium 9.8 (8.4-10.2) mg/dL Magnesium 1.8 (1.6-2.6) mg/dL Total Bilirubin 0.7 (0.0-1.0) mg/dL AST 16 (5-37) U/L ALT 15 (0-40) U/L Alkaline Phosphatase 95 (39-117) U/L Total Creatine Kinase 45 (38-174) U/L C-Reactive Protein 18.27 H (< or = 0.50) mg/dL Total Protein 7.2 (6.5-8.0) g/dL Albumin 4.0 (3.5-5.0) g/dL Lipase 20 (8-78) U/L Urine Color Yellow Urine Appearance Clear Urine pH 7.5 (5.0-9.0) Ur Specific [place] 1.010 (1.005-1.025) Urine Protein Negative (Neg-Trace) mg/dL Urine Glucose (UA) Negative (Negative) mg/dL Urine Ketones 40 (Negative) mg/dL Urine Blood Trace H (Negative) Urine Nitrite Negative (Negative) Ur Leukocyte Esterase Negative (Negative) Urine RBC 6-10 H (0-2) /HPF Urine WBC 0-5 (0-5) /HPF Ur Squamous Epith Cells 0-2 (0-2) /HPF Urine Bacteria None Seen (None Seen) Hyaline Casts 0-2 (0-2) /LPF Independent Interpretation I performed an independent interpretation of an: Ultrasound and CT Scan Radiology Impression Discussion of test interpretation with radiology: I have reviewed the radiologist's reading. External Record Review External record reviewed: Inpatient record, Office record, Outpatient record, Prior outpatient labs, Prior outpatient radiology, Primary care record and Outside ED record Prescription Management I considered prescription management with: Antibiotic Chronic Conditions Patient?s care impacted by: Other (chf, hyponatremia, recent URI ) Medications Administered Discontinued Medications Generic Name Dose Route Start Last Admin Trade Name Freq PRN Reason Stop Dose Admin Sodium Chloride 1,211.1 mls @ 1,211.1 mls/hr 07/04/23 09:05 07/04/23 10:15 Ns 30 ml/kg infuse over 1 hr (1211.1 ml) 07/04/23 10:04 1,211.1 mls/hr IV Administration .Q1H STA Piperacillin Sod/Tazobactam 50 mls @ 100 mls/hr 07/04/23 09:05 07/04/23 10:15 Sod 3.375 gm/ Sodium Chloride IV 07/04/23 09:34 100 mls/hr ONCE ONE Administration Critical Care Time Critical Care Time Critical Care Time: Yes Total Critical Care Time: 35 Attestation: I attest to this time spent taking care of the patient, obtaining history, physical, reviewing labs, imaging, speaking to my attending, speaking to specialist. Discharge Plan Discharge Clinical Impression: Acute epididymitis, Cellulitis of scrotum, Acute hyponatremia, Hydrocele, bilateral Patient Disposition: Admitted As Inpatient Prescriptions: No Action levofloxacin 500 mg tablet 500 mg PO DAILY 7 Days Qty: 7 0RF Rx Instructions: Stop Bactrim and begin taking levofloxacin daily for 5 days furosemide [Lasix] 20 mg tablet 10 mg PO Q OTHER DAY Qty: 3 0RF Rx Instructions: Thursday, Thursday, Thursday cefuroxime axetil 500 mg tablet 500 mg PO BID Qty: 14 0RF naproxen 500 mg tablet 500 mg PO BID tamsulosin 0.4 mg capsule 0.8 mg PO DAILY clotrimazole-betamethasone 1-0.05 % cream topical BID atorvastatin 20 mg tablet 20 mg PO DAILY gabapentin 300 mg capsule 300 mg PO TID latanoprost 0.005 % drops 1 drp ophthalmic (eye) QPM ketotifen fumarate 0.025 % (0.035 %) drops 1 drp ophthalmic (eye) BID Rx Instructions: administer at least 8 hours apart hydrochlorothiazide 12.5 mg tablet PO albuterol sulfate 90 mcg/actuation HFA aerosol inhaler 2 puff inhalation Q4-6H PRN
--- NOTE | 2023-07-04 09:30 | PC.NURSE ---
bedside ultrasound has been done.
[2023-07-04 09:53] LABS: MANUAL DIFF FLAG NO
[2023-07-04 10:06] LABS: Lactic Acid 1.2 mmol/L (0.5-2.0)
[2023-07-04 10:09] LABS: Basophils Percent Auto 0.1 % (0-2); Eosinophils Percent Auto 0.1 % (0-4); Hematocrit 40.3 % (42.0-52.0); Hemoglobin 14.1 g/dl (14.0-18.0); Imm Gran Abs Auto 0.12 X10*3/uL (0.00-0.03); Imm Gran Pct Auto 0.9 % (0.0-0.4); Lymphocytes Absolute Auto 0.7 X10*3/uL (1.2-4.9); Lymphocytes Percent Auto 5.3 % (20-40); Mean Corpuscular Hemoglobin 32.9 pg (27.0-33.0); Mean Corpuscular Volume 93.9 fL (80.0-98.0); Mean Platelet Volume 9.2 fL (9.4-12.4); Monocytes Absolute Auto 0.7 X10*3/uL (0.1-1.2); Monocytes Percent Auto 5.7 % (2-11); Neutrophils Absolute Auto 11.3 x10*3/uL (2.0-8.3); Neutrophils Percent Auto 87.9 % (45-73); Platelet Count 175 X10*3/uL (160-400); Red Blood Count 4.29 X10*6/uL (4.60-5.80); White Blood Count 12.9 X10*3/uL (4.8-10.8)
[2023-07-04 10:11] LABS: Alanine Aminotransferase 15 U/L (0-40); Alkaline Phosphatase 95 U/L (39-117); Anion Gap 15 (12-20); Aspartate Amino Transferase 16 U/L (5-37); Bilirubin Total 0.7 mg/dL (0.0-1.0); Blood Urea Nitrogen 9 mg/dL (9-16); Calcium 9.8 mg/dL (8.4-10.2); Carbon Dioxide 26 mmol/L (22-29); Chloride 89 mmol/L (96-108); Creatinine Clr Calc Pharmacy 44.9; Estimated Glomerular Filt Rate > 60; Glucose Random 95 mg/dL (60-115); Lipase 20 U/L (8-78); Magnesium 1.8 mg/dL (1.6-2.6); Potassium 4.5 mmol/L (3.3-5.1); Sodium 125 mmol/L (135-145); Total Protein 7.2 g/dL (6.5-8.0)
[2023-07-04 10:12] LABS: C Reactive Protein 18.27 mg/dL (< or = 0.50)
[2023-07-04 10:12] LABS: Appearance Urine Clear; Color Urine Yellow; Glucose Urine UA Negative (Negative); Leukocyte Esterase Urine Negative (Negative); Nitrite Urine Negative (Negative); PH 7.5 (5.0-9.0); UMIC TRIGGER UACC YES; Urine Blood Trace (Negative); Urine Ketones 40 mg/dL (Negative); Urine Protein Negative (Neg-Trace)
[2023-07-04 10:13] VITALS: BP 145/87; PULSE 88; RESP 17; TEMP 36.8; O2SAT 98
[2023-07-04] MEDS: Piperacillin Sodium/Tazobactam 3.375 GM in 0.9 % Sodium Chloride 50 ML IV ×3 (10:15→21:38)
[2023-07-04 10:18] LABS: Bacteria Urine None Seen (None Seen); Hyaline Casts Urine 0-2 /LPF (0-2); Squamous Epithelial Cell Urine 0-2 /HPF (0-2); WBC Urine 0-5 /HPF (0-5)
--- NOTE | 2023-07-04 10:45 | PC.NURSE ---
pt/ aware of plan of care for admission to hosp.
[2023-07-04 10:50] LABS: Erythrocyte Sedimentation Rate 16 MM/HR (0-15)
[2023-07-04 11:02] VITALS: BP 146/87; PULSE 93; RESP 18; TEMP 36.4; O2SAT 98
[2023-07-04 11:03] LABS: Osmolality Urine 308 mosm/kg (373-1093)
[2023-07-04 11:09] LABS: B Type Natriuretic Peptide 59 pg/mL (<100)
--- NOTE | 2023-07-04 11:49 | PHA.MEDREC ---
Pharmacy Consult ? Medication Reconciliation Pharmacy has completed the medication reconciliation. 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 They were not able to confirm the name of losartan but knew they were on something for blood pressure. She confirmed the dosing for furosemide, tamsulosin and gabapentin (the gabapentin was prescribed as TID but they report taking once daily). They report he stopped bactrim and started levaquin and last took it yesterday. There is no claim history to support the latanoprost but it was recently entered into their medication list and they confirmed that he uses it for glaucoma.
--- NOTE | 2023-07-04 12:23 | PM.IMHP ---
History of Present Illness Date of Service: 07/04/23 Attending physician on admission: Eric Rooney Chief Complaint: scrotal swelling/pain 72 year old male with unspecified chf, congenital vs acquired pectus carinatum, bph, chronic bilateral hydroceles presents to the ED for evaluation of scrotal swelling and pain ongoign for about 1.5 months that has been worsening. Has had chills but no fevers. Reports dysuria, no hematuria. Has chronic issues with urinary retention. Has been seen by PCP and trialed levaquin and bactrim without improvement. Was seen by urology about one month ago for suspected right inguinal hernia but states symptoms have worsened since this. He does endorse ble edema, mild orthopnea, and bullock. Pt is somewhat of a limited historian due to degree of cognitive impairment which reports is chronic and she also assists with history. On arrival, VSS except mild tachycardia in 90s. There is a leukocytosis 12.9. Renal function baseline, lytes normal except Na 125, Cl 89. CRP 18.27, ESR 16. UA unremarkable. Urine osm 308, ur sodium 64. Scrotal us shows very large left-sided hydrocele and moderate R hydrocele, increased from prior studies. There is increased size R epididymis with hyperemia and soft tissue swelling. CT abd/pelvis limited due to motion and lack of contrast. There is a nonobstructing 0.2cm calculus L kidney and redemonstration of moderate sized pericardial effusion and small bilateral pleural effusions with associated compressive atelectasis as well as large prostate protruding into bladder base. In the ED given IV NS and zosyn. Review of Systems Review of Systems: General: No fevers, malaise, unintentional weight loss HEENT: No blurred vision, diplopia. No sore throat, nasal congestion, rhinorrhea, sinus pain, ear pain Cardiovascular: No chest pain, palpitations, or leg edema Respiratory: +orthopena, +BULLOCK. No wheezing, cough GI: +abdominal pain. No nausea, vomiting, diarrhea, constipation, melena, hematochezia : +Dysuria, +retention, +scrotal swelling. No hematuria, increased urinary frequency MSK: No myalgia, back pain Neuro: No headaches, weakness, paresthesias Skin: No rashes or lesions COUNT INCLUDES [facility] Medical History (Updated 07/04/23 @ 12:41 by ILYA Alex) Hydrocele, bilateral Renal mass of unknown nature Pectus carinatum BPH (benign prostatic hyperplasia) Urinary retention Surgical History History of surgery on lower extremity H/O inguinal hernia repair Social History Alcohol intake: never Smoked in Last 30 Days: No Use of substances other than those prescribed or required for medical reasons: No Advance Directives: No Advance Directives Information Provided: No Meds Allergies Allergy/AdvReac Type Severity Reaction Status Date / Time No Known Allergies Allergy Verified 07/01/23 14:34 Active Medications: Current Medications Acetaminophen (Acetaminophen 325 Mg Tablet) 650 mg PO Q6H PRN PRN Reason: Pain, Mild (Pain Scale 1-3) Atorvastatin Calcium (Atorvastatin Calcium 20 Mg Tablet) 20 mg PO DAILY AYAZ Enoxaparin Sodium (Enoxaparin Sodium 40 Mg/0.4 Ml Syringe) 40 mg SUBCUT Q24H AYAZ Furosemide (Furosemide 20 Mg/2 Ml Vial) 20 mg IVPUSH DAILY YAAZ; Protocol Gabapentin (Gabapentin 300 Mg Capsule) 300 mg PO DAILY AYAZ Piperacillin Sod/Tazobactam (Sod 3.375 gm/ Sodium Chloride) 50 mls @ 100 mls/hr IV Q6H AYAZ Latanoprost (Latanoprost 0.005 % Ophth Sonia 2.5 Ml Drops) 1 drop EYE-BOTH QPM AYAZ Losartan Potassium (Losartan Potassium 25 Mg Tablet) 25 mg PO DAILY AYAZ; Protocol Ondansetron HCl (Ondansetron Hcl 4 Mg/2 Ml Vial) 4 mg IVPUSH Q8H PRN PRN Reason: Nausea and Vomiting Senna (Sennosides 8.6 Mg Tablet) 17.2 mg PO BEDTIME PRN PRN Reason: Constipation Sodium Chloride (0.9 % Sodium Chloride Flush 3 Ml Syringe) 3 ml IVFLUSH QSHIFT AYAZ Tamsulosin HCl (Tamsulosin Hcl 0.4 Mg Capsule) 0.8 mg PO DAILY [facility] Home Medications Medication Instructions Recorded Confirmed Last Taken Type atorvastatin 20 mg tablet 20 mg PO DAILY 06/03/23 07/04/23 Unknown History gabapentin 300 mg capsule 300 mg PO DAILY 06/03/23 07/04/23 Unknown History latanoprost 0.005 % eye drops 1 drp ophthalmic (eye) QPM 06/03/23 07/04/23 Unknown History naproxen 500 mg tablet 500 mg PO BID 06/03/23 07/04/23 Unknown History tamsulosin 0.4 mg capsule 0.8 mg PO DAILY 06/03/23 07/04/23 Unknown History losartan 25 mg tablet 25 mg PO DAILY 07/04/23 07/04/23 Unknown History Physical Exam Vital Signs and Narrative: Vital Signs: Last Vital Signs Temp 97.5 F 07/04/23 11:02 Pulse 93 07/04/23 11:02 Resp 18 07/04/23 11:02 BP 146/87 H 07/04/23 11:02 Pulse Ox 98 07/04/23 11:02 O2 Del Method Room Air 07/04/23 11:02 BMI result Body Mass Index 25.0 Constitutional - Awake and Alert, No apparent distress Eyes - PERRLA, EOMI Neck - No JVD Cardiovascular - S1S2, RRR, 2+ LLE, 1+ RLE edema Respiratory - Normal lung expansion, Normal respiratory effort, No respiratory distress, CTA bilaterally Gastrointestinal - NT / ND; +BS; No rebound or guarding - No CVA tenderness, thickened scrotum with soft tissue swelling, warmth, and erythema Extremities - no calf tenderness bilaterally, no swelling MSK- severe scoliosis, pectus carinatum Skin - Warm/Dry Neurological - Alert & oriented to self and place Results Labs 07/04/23 09:45 07/04/23 09:45 Labs: Laboratory Results - last 24 hr 07/04/23 07/04/23 09:45 09:48 MCV 93.9 MCH 32.9 MCHC 35.0 RDW 13.0 Plt Count 175 MPV 9.2 L Immature Gran % (Auto) 0.9 H Neut % (Auto) 87.9 H Lymph % (Auto) 5.3 L [place] % (Auto) 5.7 Eos % (Auto) 0.1 Baso % (Auto) 0.1 Lymph # (Auto) 0.7 L [place] # (Auto) 0.7 Eos # (Auto) 0.0 Baso # (Auto) 0.0 Abs Immat Gran (auto) 0.12 H Absolute Neuts (auto) 11.3 H Absolute Nucleated RBC 0.000 Nucleated RBC % (auto) 0.0 ESR 16 H Anion Gap 15 Estim Creat Clear Calc 44.9 Estimated GFR > 60 Random Glucose 95 Lactic Acid 1.2 Calcium 9.8 Magnesium 1.8 Total Bilirubin 0.7 AST 16 ALT 15 Alkaline Phosphatase 95 Total Creatine Kinase 45 C-Reactive Protein 18.27 H B-Natriuretic Peptide 59 Total Protein 7.2 Albumin 4.0 Lipase 20 Urine Color Yellow Urine Appearance Clear Urine pH 7.5 Ur Specific [place] 1.010 Urine Protein Negative Urine Glucose (UA) Negative Urine Ketones 40 Urine Blood Trace H Urine Nitrite Negative Ur Leukocyte Esterase Negative Urine RBC 6-10 H Urine WBC 0-5 Ur Squamous Epith Cells 0-2 Urine Bacteria None Seen Hyaline Casts 0-2 Urine Osmolality 308 L Ur Random Sodium 64.0 Imaging Radiologist's Impressions: Impressions Scrotum Ultrasound 07/04/23 08:58 IMPRESSION: 1. Very large left-sided hydrocele and moderate right hydrocele, increased compared to prior. 2. Increased size of the right epididymis with hyperemia, recommend clinical correlation for acute epididymitis. 3. Soft tissue swelling. Scrotum Ultrasound 07/04/23 08:58 IMPRESSION: 1. Very large left-sided hydrocele and moderate right hydrocele, increased compared to prior. 2. Increased size of the right epididymis with hyperemia, recommend clinical correlation for acute epididymitis. 3. Soft tissue swelling. Abdomen/Pelvis CT 07/04/23 09:44 IMPRESSION: 1. Limited examination due to motion and lack of IV contrast. 2. Moderate degree of colonic stool burden suggesting constipation. 3. Nonobstructive 0.2 cm calculus in the left kidney. 4. Redemonstration of a moderate-sized pericardial effusion and small bilateral pleural effusions with associated compressive atelectasis, not significantly changed. 5. Large prostate protruding into the bladder base. Assessment and Plan (1) Acute hyponatremia: Status: Acute (2) Cellulitis of scrotum: Status: Acute (3) Acute epididymitis: Status: Acute Plan 72 year old male with unspecified chf, congenital vs acquired pectus carinatum, bph, chronic bilateral hydroceles admitted for cellulitis scrotum and R epididymitis with sepsis. #Acute cellulitis scrotum and R epididymitis with sepsis -leukocytosis 12.9, mild tachycardia. CRP 18. No end organ damage/hypotension. No severe sepsis/shock -failed outpt abx -iv zosyn -urology consult -follow cbc, cultures #Mild CHF exacerbation -ble, orthopnea, bullock. no scrotal edema -20mg IV lasix -strict I/O -cardiac diet -echo ordered -follow renal function/lytes #Acute hyponatremia -ur sodium 64, urine osm 308, likely siadh- possibly r/t diuretic/bactrim use -fluid restrict to 1.2 L -follow lytes #Moderate pericardial effusion -echo ordered -consider cardiology/thoracic consult if indicated #BPH -continue flomax dvt prophylaxis- lovenox full code pt requries inpt stay at least 2 midnights for management of scrotal cellulitis/epididymitis with sepsis requiring iv abx and expert consulation Quality Stroke Does the patient have a stroke diagnosis?: No VTE Prior VTE?: No VTE Risk Level:: Medical - moderate - high VTE Device Contraindication: Treatment Not Indicated VTE Drug Contraindication: N/A - Med Ordered
[2023-07-04] MEDS: Furosemide 20 MG/2 ML VIAL IVPUSH (13:05)
[2023-07-04] MEDS: Enoxaparin Sodium 40 MG/0.4 ML SYRINGE SUBCUT (13:05)
[2023-07-04 13:35] LABS: COVID-19 Test Negative (Negative); IDNOW Serial# 152EDE1D
[2023-07-04] MEDS: Morphine Sulfate 4 MG/ML CARTRIDGE IVPUSH (14:19)
[2023-07-04 15:11] VITALS: BMI 24.9
[2023-07-04] MEDS: ondansetron HCL 4 MG/2 ML VIAL IVPUSH ×2 (15:24→23:12)
[2023-07-04] MEDS: 0.9 % Sodium Chloride Flush 3 ML SYRINGE IVFLUSH ×2 (15:25→21:43)
[2023-07-04 16:00] VITALS: BP 162/87; PULSE 100; RESP 18; TEMP 36.6; O2SAT 96
[2023-07-04] MEDS: oxyCODONE HCl Immed Release 5 MG TABLET PO (16:15)
[2023-07-04 16:33] VITALS: BP 180/90
[2023-07-04] MEDS: HYDROmorphone HCl 0.5 MG/0.5 ML SYRINGE IVPUSH ×2 (18:22→22:54)
[2023-07-04 20:00] VITALS: BP 146/80; PULSE 82; RESP 16; TEMP 36.5; O2SAT 94
[2023-07-04] MEDS: iohexoL 350 MG/ML 100 ML INFUS..BTL IV (20:13)
[2023-07-04] MEDS: Latanoprost 0.005 % Ophth Sol 2.5 ML DROPS 1 DROP EYE-BOTH (21:36)
[2023-07-05 04:00] VITALS: BP 132/76; PULSE 78; RESP 16; TEMP 36.6; O2SAT 96
[2023-07-05] MEDS: Piperacillin Sodium/Tazobactam 3.375 GM in 0.9 % Sodium Chloride 50 ML IV ×4 (04:16→22:34)
[2023-07-05 06:14] LABS: MANUAL DIFF FLAG NO
[2023-07-05 06:38] LABS: Basophils Percent Auto 0.1 % (0-2); Eosinophils Percent Auto 0.1 % (0-4); Hematocrit 35.7 % (42.0-52.0); Imm Gran Abs Auto 0.04 X10*3/uL (0.00-0.03); Imm Gran Pct Auto 0.5 % (0.0-0.4); Lymphocytes Absolute Auto 0.8 X10*3/uL (1.2-4.9); Lymphocytes Percent Auto 9.4 % (20-40); Mean Corpuscular HGB Conc 33.6 g/dl (31.0-36.0); Mean Corpuscular Hemoglobin 32.4 pg (27.0-33.0); Mean Corpuscular Volume 96.5 fL (80.0-98.0); Mean Platelet Volume 9.5 fL (9.4-12.4); Monocytes Percent Auto 10.9 % (2-11); Neutrophils Absolute Auto 6.9 x10*3/uL (2.0-8.3); Platelet Count 169 X10*3/uL (160-400); Red Cell Distribution Width 13.2 % (11.0-16.0); White Blood Count 8.7 X10*3/uL (4.8-10.8)
[2023-07-05 06:48] LABS: Anion Gap 11 (12-20); Blood Urea Nitrogen 13 mg/dL (9-16); Calcium 9.5 mg/dL (8.4-10.2); Carbon Dioxide 31 mmol/L (22-29); Chloride 91 mmol/L (96-108); Creatinine Clr Calc Pharmacy 47.6; Estimated Glomerular Filt Rate > 60; Glucose Random 116 mg/dL (60-115); Potassium 4.1 mmol/L (3.3-5.1); Sodium 129 mmol/L (135-145)
[2023-07-05 08:00] VITALS: BP 149/75; PULSE 79; RESP 17; TEMP 36.8; O2SAT 95
--- NOTE | 2023-07-05 08:34 | HO.PM.IMPN ---
Subjective Subjective Date of Service: 07/05/23 Interval History: scrotal pain Physical Exam Vital Signs: Vital Signs: Last Vital Signs Temp 98.2 F 07/05/23 08:00 Pulse 79 07/05/23 08:00 Resp 17 07/05/23 08:00 BP 149/75 H 07/05/23 08:00 Pulse Ox 95 07/05/23 08:00 O2 Del Method Room Air 07/05/23 08:00 BMI result Body Mass Index 24.9 General: AO X 3, no acute distress, pectus carinatum Resp: diminished bilateral, no accessory muscles used CVS: S1,S2,RRR GI: soft, non tender, non distended : mild scrotal swelling and disprortionate tenderness Objective Data Active Medications Acetaminophen (Acetaminophen 325 Mg Tablet) 650 mg PO Q6H PRN PRN Reason: Pain, Mild (Pain Scale 1-3) Atorvastatin Calcium (Atorvastatin Calcium 20 Mg Tablet) 20 mg PO DAILY [facility] Enoxaparin Sodium (Enoxaparin Sodium 40 Mg/0.4 Ml Syringe) 40 mg SUBCUT Q24H [facility] Last Admin: 07/04/23 13:05 Dose: 40 mg Documented By: DEEPALI Furosemide (Furosemide 20 Mg/2 Ml Vial) 20 mg IVPUSH DAILY [facility]; Protocol Last Admin: 07/04/23 13:05 Dose: 20 mg Documented By: DEEPALI Gabapentin (Gabapentin 300 Mg Capsule) 300 mg PO DAILY [facility] Hydromorphone HCl (Hydromorphone Hcl 0.5 Mg/0.5 Ml Syringe) 0.5 mg IVPUSH Q4H PRN; Protocol PRN Reason: Pain, Severe (Pain Scale 7-10) Last Admin: 07/04/23 22:54 Dose: 0.5 mg Documented By: JOSH Piperacillin Sod/Tazobactam (Sod 3.375 gm/ Sodium Chloride) 50 mls @ 100 mls/hr IV Q6H [facility] Last Infusion: 07/05/23 04:58 Dose: Infused Documented By: JOSH Latanoprost (Latanoprost 0.005 % Ophth Sonia 2.5 Ml Drops) 1 drop EYE-BOTH BEDTIME [facility] Last Admin: 07/04/23 21:36 Dose: 1 drop Documented By: JOSH Losartan Potassium (Losartan Potassium 25 Mg Tablet) 25 mg PO DAILY [facility]; Protocol Ondansetron HCl (Ondansetron Hcl 4 Mg/2 Ml Vial) 4 mg IVPUSH Q8H PRN PRN Reason: Nausea and Vomiting Last Admin: 07/04/23 23:12 Dose: 4 mg Documented By: JOSH Oxycodone HCl (Oxycodone Hcl Immed Release 5 Mg Tablet) 5 mg PO Q4H PRN PRN Reason: Pain, Moderate(Pain Scale 4-6) Last Admin: 07/04/23 16:15 Dose: 5 mg Documented By: CRYSTAL Senna (Sennosides 8.6 Mg Tablet) 17.2 mg PO BEDTIME PRN PRN Reason: Constipation Sodium Chloride (0.9 % Sodium Chloride Flush 3 Ml Syringe) 3 ml IVFLUSH QSHIFT [facility] Last Admin: 07/04/23 21:43 Dose: 3 ml Documented By: JOSH Tamsulosin HCl (Tamsulosin Hcl 0.4 Mg Capsule) 0.8 mg PO DAILY [facility] Labs 07/05/23 05:39 07/05/23 05:39 Labs: Laboratory Results - last 24 hr 07/04/23 07/04/23 07/04/23 09:45 09:48 13:13 MCV 93.9 MCH 32.9 MCHC 35.0 RDW 13.0 Plt Count 175 MPV 9.2 L Immature Gran % (Auto) 0.9 H Neut % (Auto) 87.9 H Lymph % (Auto) 5.3 L [place] % (Auto) 5.7 Eos % (Auto) 0.1 Baso % (Auto) 0.1 Lymph # (Auto) 0.7 L [place] # (Auto) 0.7 Eos # (Auto) 0.0 Baso # (Auto) 0.0 Abs Immat Gran (auto) 0.12 H Absolute Neuts (auto) 11.3 H Absolute Nucleated RBC 0.000 Nucleated RBC % (auto) 0.0 ESR 16 H Anion Gap 15 Estim Creat Clear Calc 44.9 Estimated GFR > 60 Random Glucose 95 Lactic Acid 1.2 Calcium 9.8 Magnesium 1.8 Total Bilirubin 0.7 AST 16 ALT 15 Alkaline Phosphatase 95 Total Creatine Kinase 45 C-Reactive Protein 18.27 H B-Natriuretic Peptide 59 Total Protein 7.2 Albumin 4.0 Lipase 20 Urine Color Yellow Urine Appearance Clear Urine pH 7.5 Ur Specific Johnston 1.010 Urine Protein Negative Urine Glucose (UA) Negative Urine Ketones 40 Urine Blood Trace H Urine Nitrite Negative Ur Leukocyte Esterase Negative Urine RBC 6-10 H Urine WBC 0-5 Ur Squamous Epith Cells 0-2 Urine Bacteria None Seen Hyaline Casts 0-2 Urine Osmolality 308 L Ur Random Sodium 64.0 COVID-19 ([facility]UEL ANGEL) Negative COVID-19 Clin Com See Note 07/05/23 05:39 MCV 96.5 MCH 32.4 MCHC 33.6 RDW 13.2 Plt Count 169 MPV 9.5 Immature Gran % (Auto) 0.5 H Neut % (Auto) 79.0 H Lymph % (Auto) 9.4 L Com[place] % (Auto) 10.9 Eos % (Auto) 0.1 Baso % (Auto) 0.1 Lymph # (Auto) 0.8 L Com[place] # (Auto) 1.0 Eos # (Auto) 0.0 Baso # (Auto) 0.0 Abs Immat Gran (auto) 0.04 H Absolute Neuts (auto) 6.9 Absolute Nucleated RBC 0.000 Nucleated RBC % (auto) 0.0 ESR Anion Gap 11 L Estim Creat Clear Calc 47.6 Estimated GFR > 60 Random Glucose 116 H Lactic Acid Calcium 9.5 Magnesium Total Bilirubin AST ALT Alkaline Phosphatase Total Creatine Kinase C-Reactive Protein B-Natriuretic Peptide Total Protein Albumin Lipase Urine Color Urine Appearance Urine pH Ur Specific Johnston Urine Protein Urine Glucose (UA) Urine Ketones Urine Blood Urine Nitrite Ur Leukocyte Esterase Urine RBC Urine WBC Ur Squamous Epith Cells Urine Bacteria Hyaline Casts Urine Osmolality Ur Random Sodium COVID-19 ([facility]UEL ANGEL) COVID-19 Clin Com Assessment and Plan (1) Hydrocele, bilateral: Status: Acute Plan 72M PMH unspecified chf, dextroscoliosis and pectus carinatum, bph, chronic bilateral hydrocele, presented with worsening scrotal edema and pain sepsis due to acute scrotal cellulitis and right epydidmytis zosyn follow up urology, cultures acute on chronic unspecified chf lasix 20mg iv daily echo acute hyponatremia ?hypervolemic monitor, fluid restrict incidental moderate pericardial effusion seen on CT check echo bph flomax liu in place for urinary retention, follow up dvt prophylaxis - lovenox full cocde reason for continued hospitalization:iv abx for high risk cellulitis, iv diuresis for fluid overload, close monitoring of hyponatremia Quality Stroke Does the patient have a stroke diagnosis?: No VTE Prior VTE?: No VTE Risk Level:: Medical - moderate - high VTE Device Contraindication: Treatment Not Indicated VTE Drug Contraindication: N/A - Med Ordered
[2023-07-05] MEDS: Losartan Potassium 25 MG TABLET PO (09:23)
[2023-07-05] MEDS: Tamsulosin HCL 0.4 MG CAPSULE 0.8 MG PO (09:23)
[2023-07-05] MEDS: Gabapentin 300 MG CAPSULE PO (09:23)
[2023-07-05] MEDS: 0.9 % Sodium Chloride Flush 3 ML SYRINGE IVFLUSH ×3 (09:23→19:53)
[2023-07-05] MEDS: Atorvastatin Calcium 20 MG TABLET PO (09:23)
[2023-07-05] MEDS: Furosemide 20 MG/2 ML VIAL IVPUSH (09:23)
--- NOTE | 2023-07-05 11:25 | MHC.CM.PN ---
pt lives with family had no previous services may need transportion assist when dcd he is not sure family members can pick him up
[2023-07-05] MEDS: Enoxaparin Sodium 40 MG/0.4 ML SYRINGE SUBCUT (11:38)
[2023-07-05 15:13] VITALS: BP 101/65; PULSE 93; RESP 20; TEMP 36.3; O2SAT 96
--- NOTE | 2023-07-05 19:01 | PC.NURSE ---
report received from overnight RN, certified medical assistant per JUL. pt with liu in place, noted with decreased urine output around 1445. Liu cath manually irrigated with no resistance, de-inflated balloon, advanced liu and re-inflated balloon. Bladder scanned for 21cc around 1500 and 12cc around 1830. Pt denies pain to abd. Pt reports liu is leaking into toilet, no signs of leaking noted on bed/chair. MD notified of this change. Pt scoring as moderate fall risk - refusing bed alarm/chair alarm. Assisted OOB to ambulate to bathroom and in hallway, pt noted to have steady gait. Encouraged to call for assistance. Pt offering no complaints at this time, at bedside, respirations even and unlabored, safety precautions in place. Report given to overnight RN.
[2023-07-05 19:15] VITALS: BP 98/57; PULSE 107; RESP 18; TEMP 36.4; O2SAT 95
[2023-07-05] MEDS: HYDROmorphone HCl 0.5 MG/0.5 ML SYRINGE IVPUSH (19:53)
[2023-07-05] MEDS: Latanoprost 0.005 % Ophth Sol 2.5 ML DROPS 1 DROP EYE-BOTH (19:53)
[2023-07-05 20:00] VITALS: BP 104/65; PULSE 102; RESP 18; TEMP 36.3; O2SAT 94
[2023-07-05 20:23] VITALS: RESP 18
[2023-07-05] MEDS: Acetaminophen 325 MG TABLET 650 MG PO (22:33)
[2023-07-05] MEDS: oxyCODONE HCl Immed Release 5 MG TABLET PO (22:34)
--- NOTE | 2023-07-05 22:49 | PC.NURSE ---
Assumed care of patient at 19:00. Patient is A&Ox4, TE-MOAK with bilateral hearing aids in place. Maori speaking, nuclear station operator requested and utilized at pt's bedside during care. Per handoff report received, patient has liu for retention though liu has not been draining despite nursing interventions and patient has been voiding small amounts around liu. These findings were consistent with this travel writer's assessment; patient has been voiding small amounts of odorless cyu in the toilet around the liu catheter, with PVRs obtained showing zero twice so far this evening. Leak Patcher irrigated liu with irrigated amount returned in bag, without urine. Liu balloon was also deflated and re-inflated. Covering Dr. Cormier notified. Urology consult previously placed and tentative plan to see tomorrow on Thursday; covering urologist Dr. Rodgers notified for recommendations regarding liu this evening per MD request. Written orders from Dr. Rodgers to D/C liu with plans for urology to replace tomorrow morning. Plan discussed with patient with nuclear station operator present. Liu D/C'd at 22:50 this evening, intact and without issue. Pt able to void 30ml odorless cyu in urinal immediately after liu D/C'd. PVR was zero. Plans to bladder scan q6h or prn for any patient c/o discomfort. Pt denies urge, continues with report of pain in his groin/penile region that he states is unchanged from his initial admitting pain complaint. Patient medicated with prn tylenol, oxycodone, and dilaudid as ordered and appropriate with +effect per pt report. Plan on care continues.
[2023-07-06 03:14] VITALS: BP 110/58; PULSE 85; RESP 16; TEMP 36.6; O2SAT 94
[2023-07-06] MEDS: Piperacillin Sodium/Tazobactam 3.375 GM in 0.9 % Sodium Chloride 50 ML IV ×4 (04:03→22:46)
[2023-07-06] MEDS: HYDROmorphone HCl 0.5 MG/0.5 ML SYRINGE IVPUSH ×2 (04:07→19:50)
--- NOTE | 2023-07-06 07:00 | CA_ITS ---
Transthoracic Echocardiogram Patient (Last, First, Middle): Ifeanyi White A Gender: Male Date of : 1950 Age: 72 Procedure Date: 07/06/2023 Procedure Type: Transthoracic Echocardiogram Location: [facility] [place] Height: 127. cm Weight: 39.92 kg BSA: 1.15 m2 Heart Rate: bpm BP: 110 / 58 mmHg Price Economist: Referring MD: Elvia CARABALLO Symptoms: chf exacerbation, pericardial effusion Study Quality: Fair ECG Rhythm: Sinus Conclusions: - Normal left ventricular size, thickness, systolic function, and wall motion. The visually estimated ejection fraction is between 60-65%. - Normal right ventricular cavity size and systolic function. - There is moderate anterior mitral leaflet thickening. - There is a pleural effusion. There are no definitive echocardiographic findings of tamponade physiology. Small to moderate pericardial effusion present. Findings Left Ventricle Normal left ventricular size, thickness, systolic function, and wall motion. The visually estimated ejection fraction is between 60-65%. Abnormal diastolic function is noted. Spectral Doppler is indicative of an impaired relaxation filling pattern. E/E prime ratio is between 8 and 15 consistent with indeterminate filling pressures. Right Ventricle Normal right ventricular cavity size and systolic function. Atria The left atrium is normal in size. Aortic Valve Normal aortic valve structure and function. There is no aortic valve stenosis. There is trace (trivial) aortic valve regurgitation. Mitral Valve There is moderate anterior mitral leaflet thickening. There is no mitral valve regurgitation. There is no mitral valve stenosis. Pulmonic Valve The pulmonic valve is normal. There is no pulmonic valve regurgitation. Tricuspid Valve Normal tricuspid valve structure. There is no tricuspid valve regurgitation. Normal right atrial pressure. There is no evidence of pulmonary hypertension. Great Vessels All visible segments of the aorta are normal in size. Venous The inferior vena cava is normal in size and collapses greater than 50% with inspiration. Pericardium/Pleural There is a pleural effusion. There are no definitive echocardiographic findings of tamponade physiology. Small to moderate pericardial effusion present. Prior Study Comparison No prior study available for comparison. Measurements 2D Linear Measurements IVSd: 0.78 0.6-0.9/0.6-1.0 cm LVIDd: 2.62 3.9-5.3/4.2-5.9 cm LVIDd Index: 2.28 2.4-3.2/2.2-3.1 cm/m2 LVIDs: 1.80 2.0-3.6 cm LVPWd: 0.89 0.7-1.1 cm Ao Root: 3.30 2.1-3.5 cm LA Diam: 2.20 2.7-3.8/3.0-4.0 cm LAIDs Index: 1.91 1.5-2.3 cm/m2 LV Mass: 63.35 67-162/88-224 g LV Mass Index: 55.09 43-95/49-115 g/m2 LVOT Diam: 1.80 3.0+(-)1.3 cm 2D Systolic Function EF 4C: 72.40 >55% EF 2C: 68.80 >55% EF BiP: 69.60 >55% Mitral Valve MV Pk E: 0.44 MV PK A: 1.21 MV Decel Time: 189.00 E/A: 0.40 E'Lateral: 5.66 E'Medial: 6.64 E/E' Med: 6.70 E/E' Lat: 7.80 PHT: 55.00 MVA PHT: 4.00 Decel Tucker: 4.08 Aortic Valve AoV Pk Sammy: 1.35 AoV Mn Sammy: 0.80 AoV VTI: 0.29 AoV Pk Grad: 7.00 Aov Mn Grad: 3.00 SHASHA Cont.VTI: 2.02 LVOT LVOT Pk Sammy: 1.14 LVOT Mn Sammy: 0.64 LVOT VTI: 0.23 LVOT Pk Grad: 5.00 LVOT Mn Grad: 2.00 LVOT Diam: 1.80 LVOT Area: 2.54 Diastolic Function MV Pk E: 0.44 MV Pk A: 1.21 E/A: 0.40 E'Medial: 6.64 E/E' Med: 6.70 E' Laterial: 5.66 E/E' Lat: 7.80 Tricuspid Valve TR Pk Sammy: 1.50 TR Pk Grad: 9.00 RA Press: 3.00 RVSP: 12.00 Great Vessels Aorta Ao Root-2D: 3.30 2.0-3.7 cm Pulmonary Valve PV Pk Sammy: 0.92 Peak PV Grad: 3.00 Updated in Other Vendor System with Status of Final Obie Amor MD electronically signed on 07/06/2023 1:38:35 PM with status of Final
[2023-07-06 07:10] LABS: Hematocrit 34.5 % (42.0-52.0); Hemoglobin 11.5 g/dl (14.0-18.0); Mean Corpuscular HGB Conc 33.3 g/dl (31.0-36.0); Mean Corpuscular Hemoglobin 32.6 pg (27.0-33.0); Mean Corpuscular Volume 97.7 fL (80.0-98.0); Mean Platelet Volume 9.6 fL (9.4-12.4); Platelet Count 176 X10*3/uL (160-400); Red Blood Count 3.53 X10*6/uL (4.60-5.80); Red Cell Distribution Width 13.3 % (11.0-16.0); White Blood Count 6.1 X10*3/uL (4.8-10.8)
[2023-07-06 07:24] LABS: Anion Gap 10 (12-20); Blood Urea Nitrogen 18 mg/dL (9-16); Carbon Dioxide 33 mmol/L (22-29); Chloride 93 mmol/L (96-108); Creatinine Clr Calc Pharmacy 44.8; Estimated Glomerular Filt Rate > 60; Glucose Fasting 89 mg/dL (60-99); Potassium 4.4 mmol/L (3.3-5.1); Sodium 132 mmol/L (135-145)
[2023-07-06 07:33] VITALS: BP 131/60; PULSE 93; RESP 16; TEMP 36.1; O2SAT 94
--- NOTE | 2023-07-06 08:47 | HO.PM.IMPN ---
Subjective Subjective Date of Service: 07/06/23 Interval History: improving Physical Exam Vital Signs: Vital Signs: Last Vital Signs Temp 96.9 F 07/06/23 07:33 Pulse 93 07/06/23 07:33 Resp 16 07/06/23 07:33 BP 131/60 07/06/23 07:33 Pulse Ox 94 07/06/23 07:33 O2 Del Method Room Air 07/06/23 07:33 BMI result Body Mass Index 24.9 General: AO X 3, no acute distress, pectus carinatum Resp: diminished bilateral, no accessory muscles used CVS: S1,S2,RRR GI: soft, non tender, non distended : mild scrotal swelling and disprortionate tenderness Objective Data Active Medications Acetaminophen (Acetaminophen 325 Mg Tablet) 650 mg PO Q6H PRN PRN Reason: Pain, Mild (Pain Scale 1-3) Last Admin: 07/05/23 22:33 Dose: 650 mg Documented By: KALI Atorvastatin Calcium (Atorvastatin Calcium 20 Mg Tablet) 20 mg PO DAILY [facility] Last Admin: 07/05/23 09:23 Dose: 20 mg Documented By: JEANCARLOS Enoxaparin Sodium (Enoxaparin Sodium 40 Mg/0.4 Ml Syringe) 40 mg SUBCUT Q24H [facility] Last Admin: 07/05/23 11:38 Dose: 40 mg Documented By: JEANCARLOS Gabapentin (Gabapentin 300 Mg Capsule) 300 mg PO DAILY [facility] Last Admin: 07/05/23 09:23 Dose: 300 mg Documented By: JEANCARLOS Hydromorphone HCl (Hydromorphone Hcl 0.5 Mg/0.5 Ml Syringe) 0.5 mg IVPUSH Q4H PRN; Protocol PRN Reason: Pain, Severe (Pain Scale 7-10) Last Admin: 07/06/23 04:07 Dose: 0.5 mg Documented By: KALI Piperacillin Sod/Tazobactam (Sod 3.375 gm/ Sodium Chloride) 50 mls @ 100 mls/hr IV Q6H [facility] Last Infusion: 07/06/23 04:32 Dose: Infused Documented By: KALI Latanoprost (Latanoprost 0.005 % Ophth Sonia 2.5 Ml Drops) 1 drop EYE-BOTH BEDTIME [facility] Last Admin: 07/05/23 19:53 Dose: 1 drop Documented By: KALI Losartan Potassium (Losartan Potassium 25 Mg Tablet) 25 mg PO DAILY [facility]; Protocol Last Admin: 07/05/23 09:23 Dose: 25 mg Documented By: JEANCARLOS Ondansetron HCl (Ondansetron Hcl 4 Mg/2 Ml Vial) 4 mg IVPUSH Q8H PRN PRN Reason: Nausea and Vomiting Last Admin: 07/04/23 23:12 Dose: 4 mg Documented By: JOSH Oxycodone HCl (Oxycodone Hcl Immed Release 5 Mg Tablet) 5 mg PO Q4H PRN PRN Reason: Pain, Moderate(Pain Scale 4-6) Last Admin: 07/05/23 22:34 Dose: 5 mg Documented By: KALI Senna (Sennosides 8.6 Mg Tablet) 17.2 mg PO BEDTIME PRN PRN Reason: Constipation Sodium Chloride (0.9 % Sodium Chloride Flush 3 Ml Syringe) 3 ml IVFLUSH QSHIFT [facility] Last Admin: 07/05/23 19:53 Dose: 3 ml Documented By: KALI Tamsulosin HCl (Tamsulosin Hcl 0.4 Mg Capsule) 0.8 mg PO DAILY [facility] Last Admin: 07/05/23 09:23 Dose: 0.8 mg Documented By: JEANCARLOS Labs 07/06/23 05:44 07/06/23 05:44 Labs: Laboratory Results - last 24 hr 07/06/23 05:44 MCV 97.7 MCH 32.6 MCHC 33.3 RDW 13.3 Plt Count 176 MPV 9.6 Absolute Nucleated RBC 0.000 Nucleated RBC % (auto) 0.0 Anion Gap 10 L Estim Creat Clear Calc 44.8 Estimated GFR > 60 Fasting Glucose 89 Calcium 9.0 Microbiology Microbiology Results: Microbiology 07/04/23 10:03 Blood Culture - Preliminary Blood - Venous No growth after 24 hours. 07/04/23 09:45 Blood Culture - Preliminary Blood - Venous No growth after 24 hours. Assessment and Plan (1) Hydrocele, bilateral: Status: Acute Plan 72M PMH unspecified chf, dextroscoliosis and pectus carinatum, bph, chronic bilateral hydrocele, presented with worsening scrotal edema and pain sepsis due to acute scrotal cellulitis and right epydidmytis zosyn follow up urology, cultures improving acute on chronic unspecified chf diuresed well, holding lasix check echo acute hyponatremia ?hypervolemic monitor, fluid restrict, improving incidental moderate pericardial effusion seen on CT check echo bph flomax dvt prophylaxis - lovenox full code reason for continued hospitalization:iv abx for high risk cellulitis Quality Stroke Does the patient have a stroke diagnosis?: No VTE Prior VTE?: No VTE Risk Level:: Medical - moderate - high VTE Device Contraindication: Treatment Not Indicated VTE Drug Contraindication: N/A - Med Ordered
[2023-07-06] MEDS: Tamsulosin HCL 0.4 MG CAPSULE 0.8 MG PO (09:05)
[2023-07-06] MEDS: Gabapentin 300 MG CAPSULE PO (09:05)
[2023-07-06] MEDS: oxyCODONE HCl Immed Release 5 MG TABLET PO ×2 (09:05→13:10)
[2023-07-06] MEDS: Atorvastatin Calcium 20 MG TABLET PO (09:05)
[2023-07-06] MEDS: Losartan Potassium 25 MG TABLET PO (09:05)
[2023-07-06] MEDS: 0.9 % Sodium Chloride Flush 3 ML SYRINGE IVFLUSH ×2 (09:06→16:22)
--- NOTE | 2023-07-06 10:28 | MHC.CM.PN ---
EMR reviewed. Per MD rounds patient is not medically cleared for dc. Plan remains home self care. CM will continue to follow.
[2023-07-06] MEDS: Enoxaparin Sodium 40 MG/0.4 ML SYRINGE SUBCUT (12:59)
[2023-07-06 15:36] VITALS: BP 125/64; PULSE 88; RESP 18; TEMP 36.3; O2SAT 94
[2023-07-06 19:17] VITALS: BP 153/70; PULSE 98; RESP 20; TEMP 36.1; O2SAT 96
[2023-07-06] MEDS: Acetaminophen 325 MG TABLET 650 MG PO (19:45)
[2023-07-06] MEDS: Sennosides 8.6 MG TABLET 17.2 MG PO (19:46)
[2023-07-06] MEDS: Latanoprost 0.005 % Ophth Sol 2.5 ML DROPS 1 DROP EYE-BOTH (22:45)
[2023-07-06] MEDS: Ketorolac Tromethamine 30 MG/ML VIAL IVPUSH (23:06)
[2023-07-07 03:48] VITALS: BP 132/67; PULSE 90; RESP 18; TEMP 36.5; O2SAT 94
[2023-07-07] MEDS: Piperacillin Sodium/Tazobactam 3.375 GM in 0.9 % Sodium Chloride 50 ML IV ×2 (04:30→09:31)
[2023-07-07 05:39] LABS: Hemoglobin 12.3 g/dl (14.0-18.0); Mean Corpuscular HGB Conc 34.2 g/dl (31.0-36.0); Mean Corpuscular Hemoglobin 32.6 pg (27.0-33.0); Mean Corpuscular Volume 95.5 fL (80.0-98.0); Mean Platelet Volume 8.6 fL (9.4-12.4); Platelet Count 182 X10*3/uL (160-400); Red Blood Count 3.77 X10*6/uL (4.60-5.80); Red Cell Distribution Width 13.2 % (11.0-16.0); White Blood Count 5.8 X10*3/uL (4.8-10.8)
[2023-07-07 06:00] LABS: Anion Gap 11 (12-20); Blood Urea Nitrogen 12 mg/dL (9-16); Calcium 9.3 mg/dL (8.4-10.2); Carbon Dioxide 33 mmol/L (22-29); Chloride 92 mmol/L (96-108); Creatinine Clr Calc Pharmacy 46.8; Estimated Glomerular Filt Rate > 60; Glucose Fasting 88 mg/dL (60-99); Potassium 5.2 mmol/L (3.3-5.1); Sodium 131 mmol/L (135-145)
[2023-07-07 07:14] VITALS: BP 152/73; PULSE 99; RESP 18; TEMP 36.5; O2SAT 95
--- NOTE | 2023-07-07 09:13 | PM.DS ---
DS: Providers Provider Date of Service: 07/07/23 Date of admission: 07/04/23 12:16 Primary care physician: Jamie Garcia MD Consults: 07/04/23 12:15 Consult to Urology Routine Consulting Provider: Ferdinand Rodgers Reason for consultation: epididymitis, scrotal cellulitis DS: Diagnosis Discharge Diagnosis (1) Hydrocele, bilateral: Status: Acute DS: Summary Hospital Course Hospital Course: from initial hpi: 72 year old male with unspecified chf, congenital vs acquired pectus carinatum, bph, chronic bilateral hydroceles presents to the ED for evaluation of scrotal swelling and pain ongoign for about 1.5 months that has been worsening. Has had chills but no fevers. Reports dysuria, no hematuria. Has chronic issues with urinary retention. Has been seen by PCP and trialed levaquin and bactrim without improvement. Was seen by urology about one month ago for suspected right inguinal hernia but states symptoms have worsened since this. He does endorse ble edema, mild orthopnea, and bullock. Pt is somewhat of a limited historian due to degree of cognitive impairment which reports is chronic and she also assists with history. On arrival, VSS except mild tachycardia in 90s. There is a leukocytosis 12.9. Renal function baseline, lytes normal except Na 125, Cl 89. CRP 18.27, ESR 16. UA unremarkable. Urine osm 308, ur sodium 64. Scrotal us shows very large left-sided hydrocele and moderate R hydrocele, increased from prior studies. There is increased size R epididymis with hyperemia and soft tissue swelling. CT abd/pelvis limited due to motion and lack of contrast. There is a nonobstructing 0.2cm calculus L kidney and redemonstration of moderate sized pericardial effusion and small bilateral pleural effusions with associated compressive atelectasis as well as large prostate protruding into bladder base. In the ED given IV NS and zosyn. hospital course: Patient was admitted with sepsis due to acute scrotal cellulitis and right epididymitis. He was treated with IV Zosyn with improvement. He was seen by Urology who recommended completing antibiotic course. Patient will be discharged on course of Levaquin. Also recommended to use scrotal sling while ambulating. He will follow up with Urology as outpatient. For acute on chronic diastolic CHF patient was diuresed with IV Lasix. Echo revealed [id number] pericardial effusion without tamponade. He will continue on maintenance Lasix as outpatient. For acute hyponatremia, likely combination of hypovolemia, salt wasting due to Lasix, SIADH, patient was put on fluid restriction with improvement in hyponatremia. He should continue 1.5 L fluid restriction as outpatient. For BPH was continued on Flomax. Patient is feeling better will be discharged home. Time Attestation Discharge Coordination Time: discharge time of ____ minutes Quality: Safe Use of Opioids Does Pt have an Active Cancer Diagnosis on the Problem List?: No Quality: Stroke Does the patient have a stroke diagnosis?: No Physical Exam Vital Signs: Vital Signs: Last Vital Signs Temp 97.7 F 07/07/23 07:14 Pulse 99 07/07/23 07:14 Resp 18 07/07/23 07:14 BP 152/73 H 07/07/23 07:14 Pulse Ox 95 07/07/23 07:14 O2 Del Method Room Air 07/07/23 07:14 BMI result Body Mass Index 24.9 General: AO X 3, no acute distress, pectus carinatum Resp: diminished bilateral, no accessory muscles used CVS: S1,S2,RRR GI: soft, non tender, non distended : mild scrotal swelling and mildtenderness DS: Data Data Completed and Pending Labs on day of discharge: Laboratory Results - last 24 hr 07/07/23 05:26 WBC 5.8 RBC 3.77 L Hgb 12.3 L Hct 36.0 L MCV 95.5 MCH 32.6 MCHC 34.2 RDW 13.2 Plt Count 182 MPV 8.6 L Absolute Nucleated RBC 0.000 Nucleated RBC % (auto) 0.0 Sodium 131 L Potassium 5.2 H Chloride 92 L Carbon Dioxide 33 H Anion Gap 11 L BUN 12 Creatinine 0.65 Estim Creat Clear Calc 46.8 Estimated GFR > 60 Fasting Glucose 88 Calcium 9.3 Preliminary micro results at discharge 07/04/23 10:03 Blood Culture - Preliminary Blood - Venous No growth after 48 hours. 07/04/23 09:45 Blood Culture - Preliminary Blood - Venous No growth after 48 hours. Discharge Plan Discharge Anticipated Discharge Date/Time: 07/07/23 09:11 Patient Disposition: Home, Self-Care Discharge Diagnosis: hydrocele, hpyonatremia, pericardial effusion Referrals: Ferdinand Rodgers MD [Physician] - 1 Week Name,MD Jamie [Primary Care Provider] - 1 Week Discharge Medications: Continued levofloxacin 500 mg tablet 500 mg PO DAILY 7 Days Qty: 7 0RF Rx Instructions: Stop Bactrim and begin taking levofloxacin daily for 5 days furosemide [Lasix] 20 mg tablet 10 mg PO Q OTHER DAY Qty: 3 0RF Rx Instructions: Thursday, Thursday, Thursday losartan 25 mg tablet 25 mg PO DAILY naproxen 500 mg tablet 500 mg PO BID tamsulosin 0.4 mg capsule 0.8 mg PO DAILY atorvastatin 20 mg tablet 20 mg PO DAILY gabapentin 300 mg capsule 300 mg PO DAILY latanoprost 0.005 % drops 1 drp ophthalmic (eye) QPM Discharge Orders: Discharge Order (Routine); Ordered 07/07/23 Ordered By: Eric Rooney Diet: 1.5L fluid restrict Activity on Discharge: use scrotal support Stand Alone Forms: Patient Portal Discharge page Care Plan Goals: recovery Health Concerns: low sodium, hydrocele, scrotal cellulitis, pericardial effusion Plan of Treatment: fluid restrict, use scrotal support, follow up urology, complete levaquin course Assessment: see above
[2023-07-07] MEDS: 0.9 % Sodium Chloride Flush 3 ML SYRINGE IVFLUSH (09:27)
[2023-07-07] MEDS: Atorvastatin Calcium 20 MG TABLET PO (09:29)
[2023-07-07] MEDS: Losartan Potassium 25 MG TABLET PO (09:29)
[2023-07-07] MEDS: Gabapentin 300 MG CAPSULE PO (09:29)
[2023-07-07] MEDS: Tamsulosin HCL 0.4 MG CAPSULE 0.8 MG PO (09:31)
[2023-07-07] MEDS: oxyCODONE HCl Immed Release 5 MG TABLET PO (09:36)
--- NOTE | 2023-07-07 10:23 | MHC.CM.PN ---
Patient medically cleared for dc home self care. Cousin will provide transportation. IMM delivered.
== END 2023-07-07 13:12 | disposition home or self-care (01) | DRG 871 ==
LOC: HO.ED 10:38 → HO.EDOVER 12:32 → HO.S3 13:40
PROVIDERS: Physician Assistant; Admitting Provider Physician Assistant; Emergency Provider Emergency Medicine Emergency Medical Services; PCP Internal Medicine Geriatric Medicine; Visit Provider Internal Medicine
DX: A41.9 Sepsis, unspecified organism (principal); I50.33 Acute on chronic diastolic (congestive) heart failure; I31.39 Other pericardial effusion (noninflammatory); E22.2 Syndrome of inappropriate secretion of antidiuretic hormone; N40.1 Benign prostatic hyperplasia with lower urinary tract symptoms; R33.8 Other retention of urine; T50.1X5A Adverse effect of loop [high-ceiling] diuretics, initial encounter; E86.1 Hypovolemia; N45.1 Epididymitis; N49.2 Inflammatory disorders of scrotum; Q67.7 Pectus carinatum; Z20.822 Contact with and (suspected) exposure to COVID-19; Z79.899 Other long term (current) drug therapy
CPT/HCPCS: 36415; 51798; 74176; 74177; 76870; 80048; 80053; 80076; 81001; 81003; 82550; 83605; 83690; 83735; 83880; 83935; 84300; 85025; 85027; 85652; 86140; 87040; 87086; 87088; 87186; 87635; 93306; 93975; 96365; 99284; 99285; C1758; J0696; J1170; J1650; J1885; J1940; J2270; J2405; J2543; Q9957; Q9967

== ENCOUNTER 2023-07-04 12:16 | Outpatient (BNV) | payer MEDICARE, MEDICAID, SELFPAY | END 2023-07-06 07:00 | PROVIDERS: Admitting Provider Physician Assistant; Emergency Provider Emergency Medicine Emergency Medical Services; PCP Internal Medicine Geriatric Medicine; Visit Provider Internal Medicine Cardiovascular Disease | DX: I31.39 Other pericardial effusion (noninflammatory) (principal); I34.89 Other nonrheumatic mitral valve disorders | CPT/HCPCS: 93306 ==

== ENCOUNTER → 2023-07-04 12:16 | Outpatient (BNV) | payer MEDICARE, MEDICAID, SELFPAY | PROVIDERS: Admitting Provider Physician Assistant; Emergency Provider Emergency Medicine Emergency Medical Services; PCP Internal Medicine Geriatric Medicine; Visit Provider Physician Assistant | DX: A41.9 Sepsis, unspecified organism (principal); N49.2 Inflammatory disorders of scrotum; I50.9 Heart failure, unspecified; N43.3 Hydrocele, unspecified | CPT/HCPCS: 99223; 99232; 99233; 99238 ==

== ENCOUNTER 2023-07-16 08:18 | Outpatient (AMB) | payer MEDICARE, MEDICAID, SELFPAY ==
--- NOTE | 2023-07-16 08:37 | A.OFFVIS_ITS ---
Intake Intake Visit Reasons: cysto/CT results/bilat hydrocele/scrotal swelling Intake Note: Patient presents today for a CYSTOSCOPY Procedure: Meds: None Allergies to Antibiotic: No Known Allergies Blood Thinner: None Urinalysis test clear for Cysto? YES Disposable Uro-G Cystoscope Cannula: Lot: [id number] Exp: 02/26/2026 Cone Picker Required: Yes Cone Picker Language: Drug Safety Specialist Name: RIVERA Thomson/BLAKE GONZALEZ Information Interpreted: non-clinical & clinical Accompanied by: Significant Other Allergies No Known Allergies Allergy (Verified 07/16/23 08:54) Medication List - Last Reconciled 07/16/23 by Rhonda Castañeda MD atorvastatin 20 mg PO DAILY furosemide (Lasix) 10 mg (1/2 x 20 mg) PO Q OTHER DAY gabapentin 300 mg PO DAILY hydroxyzine pamoate (Vistaril) 25 mg PO BEDTIME latanoprost 0.005% 1 drp ophthalmic (eye) QPM losartan 25 mg PO DAILY naproxen 500 mg PO BID solifenacin (Vesicare) 5 mg PO DAILY tamsulosin 0.8 mg PO DAILY HPI HPI Comments History of Present Illness Details Ifeanyi is a Danish-speaking male who who presents for office cystoscopy, he was last seen on 06/03/2023 with complaints of right inguinal pain. On examination he has bilateral hydrocele left greater than right. He was referred to General surgery due to right inguinal pain for further evaluation. He denies scrotal pain. He complains of urgency and frequency with nocturia 5-6 times. He was noted on evaluation to have an microscopic hematuria He previously had an MRI noting a hyperdense renal cyst, he was sent for CT urogram. Urine cytology sent on 06/03/[address] urogram no suspicious kidney lesions noted. Office cystoscopy findings--minimal petechiae changes noted, moderate trabecula tions. No suspicious bladder lesions. Plan continue tamsulosin 0.4 mg twice a day Will trial VESIcare 5 mg q.a.m. and Vistaril 25 mg at bedtime Follow-up in 2 months [facility] Medical History (Updated 07/16/23 @ 11:04 by Rhonda Castañeda MD) Hydrocele, bilateral Renal mass of unknown nature Pectus carinatum BPH (benign prostatic hyperplasia) Urinary retention Surgical History (Updated 07/16/23 @ 08:54 by RIVERA Thomson) Hx of cystoscopy History of surgery on lower extremity H/O inguinal hernia repair Social History Household Members: Spouse and Children Housing: House Do you presently have visiting nurse or other home services: No Alcohol intake: never Comment: reinforced on bed alarm Patient Tobacco Use Status: Never used Tobacco e-Cigarette/Vaping Use: Never Used service: No Review of Systems Const All systems reviewed & are unremarkable except as noted in HPI and below Reports no additional complaints Eyes Reports no additional complaints ENT Reports no additional complaints Card Denies dyspnea Resp Denies cough and Denies dyspnea GI Reports no additional complaints Musc Reports no additional complaints Skin/Breast Denies rash and Denies unusual bruising Neuro Reports no additional complaints Psych Reports no additional complaints Endo Reports no additional complaints Kingsley/Lymph Reports no additional complaints Aller/Immun Reports no additional complaints Office Procedures Cystoscopy Consent Discussed risk and benefit or proposed procedure with the patient. Information consent for procedure given to the patient. Discussed technical aspects, risks, benefits and alternatives in full. Addressed all of the patient's questions and concerns regarding the procedure. The patient demonstrated knowledge and understanding. They wish to proceed with this procedure. Preparation The patient was prepped in the usual manner. A lockstitch front edge tape sewer was present and in the room. Genitalia was prepped with betadine solution in a sterile manner. Lidocaine Jelly 2% was placed into the urethra and 16Fr flexible Olympus cystoscope was inserted into the meatus after adequate lubrication. Procedure Time out per protocol performed. Bladder Inspection Bladder Inspection: The bladder was inspected in its entirety with utilization retroflexion displaying: Tumor(s): None visualized Trabeculation: Moderate Mucosal Erthema: Mild petechiae changes, posterior wall Orifices: normal shape and position Urethra: normal Cystoscopy findings: prostatic urethra -bilobar enlargement, bulbous urethra WNL, no suspicious bladder lesions visualized [id number] DISPOSABLE SCOPE URO-G FLEXIBLE SCOPE Procedure code (CPT) selection complete Office Meds lidocaine HCl 2 % mucosal jelly in applicator Performing Provider: Rhonda Castañeda MD [place] [facility] Administered by: Catalina Rivera RN on 07/16/23 10:09 Dose Route Admin Location Dispensed Lot Number Expiration Date ND Insurance Defense Attorney 10 mL intra-urethral 20 mL naproxen 500 mg tablet Performing Provider: Rhonda Castañeda MD [place] [facility] Administered by: Catalina Rivera RN on 07/16/23 10:09 Dose Route Admin Location Dispensed Lot Number Expiration Date NDC Insurance Defense Attorney 500 mg PO 1 tab ciprofloxacin HCl 500 mg tablet Performing Provider: Rhonda Castañeda MD Performing [place] [facility] Administered by: Catalina Rivera RN on 07/16/23 10:09 Dose Route Admin Location Dispensed Lot Number Expiration Date NDC Insurance Defense Attorney 500 mg PO 1 tab Results AMB Urinalysis, Automated UA Leukoctes 0 Saturnino/uL Last Edit by RIVERA Thomson on 07/16/23 09:28 UA Nitrite Negative Last Edit by RIVERA Thomson on 07/16/23 09:28 UA Urobilinogen 0.2 mg/dL Last Edit by RIVERA Thomson on 07/16/23 09:2 8 UA Protein 0 mg/dL Last Edit by RIVERA Thomson on 07/16/23 09:28 UA pH 7.5 Last Edit by RIVERA Thomson on 07/16/23 09:28 UA Blood 25 Jagdeep/uL Last Edit by RIVERA Thomson on 07/16/23 09:28 1+ Jami Gar 07/16/23 09:28 UA Specific [place] 1.010 Last Edit by RIVERA Thomson on 07/16/23 09: 28 UA Ketone Negative Last Edit by RIVERA Thomson on 07/16/23 09:28 UA Bilirubin 0 mg/dL Last Edit by RIVERA Thomson on 07/16/23 09:28 UA Glucose 0 mg/dL Last Edit by RIVERA Thomson on 07/16/23 09:28 Results Reviewed Results Reviewed: Laboratory Last Values Urine pH (Auto) 7.5 07/16/23 09:20 Specific [place] (Auto) 1.010 07/16/23 09:20 Urine Protein (Auto) 0 mg/dL 07/16/23 09:20 Glucose (UA)(Auto) 0 mg/dL 07/16/23 09:20 Urine Ketones (Auto) Negative 07/16/23 09:20 Urine Blood (Auto) 25 Jagdeep/uL 07/16/23 09:20 Urine Nitrite (Auto) Negative 07/16/23 09:20 Urine Bilirubin (Auto) 0 mg/dL 07/16/23 09:20 Urine Urobilinogen (Auto) 0.2 mg/dL 07/16/23 09:20 Leukocyte Esterase (Auto) 0 Saturnino/uL 07/16/23 09:20 Collected: 06/03/23 [facility] Re[facility]: 06[facility]05/23 Diagnosis Urine: Few atypical urothelial cells. COMMENT: Examination of a monolayer preparation slides shows occasional benign squamous cells, occasional benign urothelial cells, and few atypical urothelial cells with increased nuclear:cytoplasmic ratio and small nucleoli. There are scattered red blood cells and inflammatory cells also present. _ Date of Service: 07/04/23 EXAMINATION: CT ABDOMEN AND PELVIS WITH CONTRAST CLINICAL INFORMATION: Worsening scrotal pain COMPARISON: Noncontrast CT abdomen/pelvis and scrotal ultrasound 07/04/2023 TECHNIQUE: Multiple axial images were obtained from the superior aspect of the liver through the pubic symphysis after the administration of 75 mL of intravenous Omnipaque 350. Images were evaluated on independent dedicated 3-D workstation and 3-D images were reconstructed with concurrent radiologist supervision and subsequently interpreted. Oral contrast was not administered. This CT examination was performed using dose optimization techniques as appropriate, variously including the following: *Automated exposure control *Adjustment of mA and/or kV according to patient size (this includes techniques or standardized protocols for targeted exams where dose is matched to indication/reason for exam; i.e. extremities or head) *Use of iterative reconstruction technique DLP: 298 mGy-cm FINDINGS: LUNG BASES: Small right pleural effusion. CARDIOMEDIASTINUM: Heart normal in size with moderate-sized pericardial effusion. No coronary artery calcification. LIVER: Homogeneous in attenuation. Normal in size. GALLBLADDER: Noninflamed. BILIARY SYSTEM: No intrahepatic or extrahepatic biliary dilation. PANCREAS: Homogeneous in attenuation. SPLEEN: Normal in size. GENITOURINARY: Bilateral kidneys demonstrate symmetric enhancement. No perinephric fluid collection. No renal calculi. No hydroureteronephrosis. ADRENAL GLANDS: Unremarkable. REPRODUCTIVE: Prostamegaly. GASTROINTESTINAL: The visualized alimentary tract is normal in course. No evidence of obstruction. APPENDIX: The appendix is not visualized; however, no pericecal inflammatory changes are seen in the right lower quadrant. PERITONEUM: Trace free fluid in the pelvis. No pneumoperitoneum. No organized fluid collection. VASCULATURE: The abdominal aorta is normal in course and caliber. LYMPH NODES: No pathologically enlarged abdominal or pelvic lymph nodes. SOFT TISSUES/MUSCULOSKELETAL: Dilated blood vessels seen in the right inguinal canal. Multilevel degenerative changes of the spine. No focal osseous lesions. IMPRESSION: No acute abdominal or pelvic pathology. Dilated blood vessel seen in the right inguinal canal. Refer to prior scrotal ultrasound on 07/04/2023. Assessment & Plan Assessment & Plan (1) Hydrocele, bilateral: Code(s): N43.3 - Hydrocele, unspecified (2) Microscopic hematuria: Code(s): R31.29 - Other microscopic hematuria (3) BPH loc w urin obs/LUTS: Code(s): N40.1 - Benign prostatic hyperplasia with lower urinary tract symptoms (4) Bladder wall thickening: Code(s): N32.89 - Other specified disorders of bladder (5) Nocturia: Code(s): R35.1 - Nocturia (6) Urinary frequency: Code(s): R35.0 - Frequency of micturition Plan continue tamsulosin 0.4 mg twice a day Will trial VESIcare 5 mg q.a.m. and Vistaril 25 mg at bedtime Follow-up in 2 months Orders: Orders AMB Urinalysis Automated Today Z13.9 - Encounter for screening, unspecified AMB Cystoscopy Today R31.29 - Other microscopic hematuria Medications: New solifenacin (Vesicare) 5 mg PO DAILY 30 tabs 3RF hydroxyzine pamoate (Vistaril) 25 mg PO BEDTIME 30 caps 3RF Patient Instructions: The patient had an opportunity to ask questions regarding treatment plan. All questions were answered. Imaging, Laboratory studies and physical exam results were discussed and reviewed in detail. No major barriers to understanding were identified. The patient expressed understanding and agreement with the above treatment plan. The patient is aware they should contact our office by phone for worsening of their current condition or the appearance of new symptoms. Compliance is encouraged with any medications and followup testing that is ordered. It is a privilege to be allowed the opportunity to participate in the urologic care of your patient. If you have any questions or concerns regarding treatment for the above conditions please do not hesitate to contact me. The office telephone contact is [phone]. This note is constructed in part using voice recognition software. While every effort has been made to ensure accuracy edge banding off bearer errors may have been included. Yours sincerely, Rhonda Castañeda MD Coding Level of Care Code Est Pt Level 4 (49406) Diagnoses Hydrocele, bilateral N43.3 Microscopic hematuria R31.29 BPH loc w urin obs/LUTS N40.1 Bladder wall thickening N32.89 Nocturia R35.1 Urinary frequency R35.0 CPT Codes Cystoscopy - CPT: [id number] ([id number])
== END 2023-07-16 10:52 | disposition home or self-care (01) ==
PROVIDERS: PCP Internal Medicine Geriatric Medicine; Visit Provider Urology
DX: N43.3 Hydrocele, unspecified (principal); R31.29 Other microscopic hematuria; N40.1 Benign prostatic hyperplasia with lower urinary tract symptoms; N32.89 Other specified disorders of bladder; R35.1 Nocturia; R35.0 Frequency of micturition; Z13.9 Encounter for screening, unspecified
CPT/HCPCS: 52000; 99213

== ENCOUNTER → 2023-07-16 08:18 | Outpatient (BNVA) | payer MEDICARE, MEDICAID, SELFPAY | PROVIDERS: PCP Internal Medicine Geriatric Medicine; Visit Provider Urology | DX: N43.3 Hydrocele, unspecified (principal); N40.1 Benign prostatic hyperplasia with lower urinary tract symptoms; R39.15 Urgency of urination; R35.0 Frequency of micturition; R35.1 Nocturia; R31.29 Other microscopic hematuria; N32.89 Other specified disorders of bladder; Z79.899 Other long term (current) drug therapy | CPT/HCPCS: 52000; 81003; 99212 ==

== ENCOUNTER 2023-07-22 08:37 | Outpatient (REF) | payer MEDICARE, MEDICAID, SELFPAY ==
--- NOTE | ~2023-07-22 | CT_ITS ---
EXAMINATION: CT UROGRAM WITHOUT AND WITH CONTRAST CLINICAL INFORMATION: Reason for Exam R31.9 - Hematuria, unspecified COMPARISON: 07/04/2023 TECHNIQUE: Helical scanning was performed with collimation through the abdomen and pelvis precontrast. Helical scanning was then repeated with submillimeter collimation through the abdomen and pelvis in the pyelogram phase with use of 100 mL of Omnipaque 300 intravenous contrast. Sagittal and coronal 2-D reconstructions were obtained. Multiple additional 3-D volume rendered images were obtained of the kidneys and collecting systems on an independent workstation under concurrent supervision. This CT examination was performed using dose optimization techniques as appropriate, variously including the following: *Automated exposure control *Adjustment of mA and/or kV according to patient size (this includes techniques or standardized protocols for targeted exams where dose is matched to indication/reason for exam; i.e. extremities or head) *Use of iterative reconstruction technique DLP: 345 FINDINGS: LUNG BASES: Redemonstration of pericardial effusion. Trace bilateral pleural effusions. ABDOMINAL AND PELVIC WALL: Unremarkable. LIVER AND BILIARY TREE: Unremarkable. GALLBLADDER: Unremarkable. PANCREAS: Unremarkable. SPLEEN: Unremarkable. ADRENAL GLANDS: Unremarkable. KIDNEYS AND URETERS: . The kidneys are normal in size, shape, and attenuation. No hydronephrosis, or hydroureter. Nonobstructing 2 mm left nephrolithiasis. No perinephric stranding. No obvious mass lesion or filling defect is seen in the collecting systems or ureters. GASTROINTESTINAL TRACT: Unremarkable. VASCULAR: Unremarkable. LYMPH NODES/PERITONEUM: No lymphadenopathy. FREE FLUID: None. BLADDER: Left urinary bladder 1.5 x 1.0 cm diverticulum. Possible bladder stone measuring 9 mm. PELVIC VISCERA: Marked prostatomegaly with posterior urinary bladder protrusion, prostate measuring 5.4 x 5.1 cm. OSSEOUS STRUCTURES: Degenerative changes of the spine. CT/CT urogram IMPRESSION: * Nonobstructing 2 mm left nephrolithiasis. No abnormal obstructing stone or lesion within the bilateral renal collecting systems. Please note this does not obviate the need for direct visualization if clinically warranted. * Possible bladder stone measuring 9 mm. * Marked prostatomegaly with posterior urinary bladder protrusion. * Redemonstration of pericardial effusion. Trace bilateral pleural effusions.
[2023-07-22] MEDS: iohexoL 350 MG/ML 100 ML INFUS..BTL 85 ML IV (10:06)
== END 2023-07-22 08:38 | disposition home or self-care (01) ==
LOC: HO.CT 08:37
PROVIDERS: PCP Internal Medicine Geriatric Medicine; Visit Provider Urology
DX: R31.9 Hematuria, unspecified (principal)
CPT/HCPCS: 74178; Q9967

== ENCOUNTER 2023-09-08 10:34 | Outpatient (REF) | payer OTHER, SELFPAY ==
[2023-09-08 12:46] LABS: B Type Natriuretic Peptide 42 pg/mL (<100)
[2023-09-08 12:51] LABS: Anion Gap 14 (12-20); Blood Urea Nitrogen 17 mg/dL (9-16); Calcium 10.1 mg/dL (8.4-10.2); Carbon Dioxide 32 mmol/L (22-29); Chloride 96 mmol/L (96-108); Estimated Glomerular Filt Rate > 60; Glucose Random 91 mg/dL (60-115); Potassium 4.5 mmol/L (3.3-5.1); Sodium 137 mmol/L (135-145)
== END 2023-09-08 10:35 | disposition home or self-care (01) ==
LOC: HO.LAB 10:34
PROVIDERS: PCP Internal Medicine Geriatric Medicine; Visit Provider Internal Medicine Cardiovascular Disease
DX: I50.9 Heart failure, unspecified (principal)
CPT/HCPCS: 36415; 80048; 83880

== ENCOUNTER 2023-09-17 09:34 | Outpatient (AMB) | payer OTHER, SELFPAY ==
--- NOTE | 2023-09-17 09:55 | A.OFFVIS_ITS ---
Intake Visit Reasons: 2m/CT Intake Note: Patient presents today for 2 month follow-up Meds: Vesicare & Tamsulosin Allergies to Antibiotic: No Known Allergies Blood Thinner: None PVR, 46 mL Scheduler Conveyor Required: Yes Scheduler Conveyor Language: Software Team Leader Name: Jami Gar, RIVERA/BLAKE GONZALEZ Information Interpreted: non-clinical & clinical Accompanied by: Significant Other Allergies No Known Allergies Allergy (Verified 09/17/23 09:57) Medication List - Last Reconciled 09/17/23 by Rhonda Castañeda MD atorvastatin 20 mg PO DAILY furosemide (Lasix) 10 mg (1/2 x 20 mg) PO Q OTHER DAY gabapentin 300 mg PO DAILY latanoprost 0.005% 1 drp ophthalmic (eye) QPM losartan 25 mg PO DAILY naproxen 500 mg PO BID solifenacin (Vesicare) 5 mg PO DAILY tamsulosin 0.8 mg PO DAILY HPI Comments Details: 09/17/2023--Ifeanyi is here for follow-up. He was seen last on 07/16/2023 he was started on VESIcare and Vistaril for urinary symptoms of urgency frequency. He has been on tamsulosin b.i.d. for BPH symptoms. Bilateral hydrocele left greater than right is not symptomatic. He was evaluated for microscopic hematuria CT urogram was within normal limits urine cytology sent May 2022 had atypical cells. The patient states his PCP discontinued the Vistaril as he is on gabapentin and combination of these meds have a high trans of drowsiness. Bladder scan PVR is 46 mL. He is tolerating VESIcare 5 mg and will continue tamsulosin. Repeat urine cytology. Review of chart: 07/16/23--Ifeanyi is a Congolese-speaking male who who presents for office cystoscopy, he was last seen on 06/03/2023 with complaints of right inguinal pain. On examination he has bilateral hydrocele left greater than right. He was referred to General surgery due to right inguinal pain for further evaluation. He denies scrotal pain. He complains of urgency and frequency with nocturia 5-6 times. He was noted on evaluation to have an microscopic hematuria He previously had an MRI noting a hyperdense renal cyst, he was sent for CT urogram. Urine cytology sent on 06/03/[address] came [address] urogram no suspicious kidney lesions noted. Office cystoscopy findings--minimal petechiae changes noted, moderate trabeculations. No suspicious bladder lesions. [facility] Medical History Hydrocele, bilateral Renal mass of unknown nature Pectus carinatum BPH (benign prostatic hyperplasia) Urinary retention Surgical History Hx of cystoscopy History of surgery on lower extremity H/O inguinal hernia repair Social History Household Members: Spouse and Children Housing: House Do you presently have visiting nurse or other home services: No Alcohol intake: never Comment: reinforced on bed alarm Patient Tobacco Use Status: Never used Tobacco e-Cigarette/Vaping Use: Never Used service: No Review of Systems Const All systems reviewed & are unremarkable except as noted in HPI and below Reports no additional complaints Eyes Reports no additional complaints ENT Reports no additional complaints Card Reports no additional complaints Resp Reports no additional complaints GI Reports no additional complaints Reports as per HPI Musc Reports no additional complaints Skin/Breast Reports system reviewed and no additional complaints, except as documented Neuro Reports no additional complaints Psych Reports no additional complaints Endo Reports no additional complaints Kingsley/Lymph Reports no additional complaints Aller/Immun Reports no additional complaints Office Procedures Post Void Residual Post Residual Void Post Void Residual (PVR): 46 09551-Vsdm Void Residual by ultrasound Results AMB Urinalysis, Automated UA Leukoctes 15 Saturnino/uL Last Edit by RIVERA Thomson on 09/17/23 10:21 UA Nitrite Negative Last Edit by RIVERA Thomosn on 09/17/23 10:21 UA Urobilinogen 0.2 mg/dL Last Edit by RIVERA Thomson on 09/17/23 10:2 1 UA Protein 15 mg/dL Last Edit by RIVERA Thomson on 09/17/23 10:21 UA pH 6.0 Last Edit by Jami Gar A on 09/17/23 10:21 UA Blood 0 Jagdeep/uL Last Edit by RIVERA Thomson on 09/17/23 10:21 UA Specific [place] 1.015 Last Edit by RIVERA Thomson on 09/17/23 10: 21 UA Ketone Negative Last Edit by Jami Gar A on 09/17/23 10:21 UA Bilirubin 0 mg/dL Last Edit by RIVERA Thomson on 09/17/23 10:21 UA Glucose 0 mg/dL Last Edit by RIVERA Thomson on 09/17/23 10:21 Results Reviewed Results Reviewed: Laboratory Last Values Urine pH (Auto) 6.0 09/17/23 09:55 Specific [place] (Auto) 1.015 09/17/23 09:55 Urine Protein (Auto) 15 mg/dL 09/17/23 09:55 Glucose (UA)(Auto) 0 mg/dL 09/17/23 09:55 Urine Ketones (Auto) Negative 09/17/23 09:55 Urine Blood (Auto) 0 Jagdeep/uL 09/17/23 09:55 Urine Nitrite (Auto) Negative 09/17/23 09:55 Urine Bilirubin (Auto) 0 mg/dL 09/17/23 09:55 Urine Urobilinogen (Auto) 0.2 mg/dL 09/17/23 09:55 Leukocyte Esterase (Auto) 15 Saturnino/uL 09/17/23 09:55 Collected: 06/03/23 Location: .LNP Received: 06/05/23 Diagnosis Urine: Few atypical urothelial cells. COMMENT: Examination of a monolayer preparation slides shows occasional benign squamous cells, occasional benign urothelial cells, and few atypical urothelial cells with increased nuclear:cytoplasmic ratio and small nucleoli. There are scattered red blood cells and inflammatory cells also present. Date: 07/04/23 US SCROTUM CLINICAL INFORMATION: Testicular pain. COMPARISON: Scrotal ultrasound 04/06/2023. TECHNIQUE: A sonogram of the scrotum was performed assessing blue-scale appearance and color Doppler flow. Spectral Doppler analysis of the arterial and venous flow were performed in the testes bilaterally. FINDINGS: RIGHT: Right testicle measures 4.5 x 2.6 x 3.1 cm, volume 18.9 mL. No focal testicular parenchymal lesions are visualized. Spectral Doppler analysis of the arterial and venous flow is normal in the right testis. Right epididymis appears enlarged and hyperemic. Moderate size hydrocele. No varicocele. LEFT: Left testicle measures 4.1 x 2.2 x 2.8 cm, volume 12.8 mL. No focal testicular parenchymal lesions are visualized. A small appendix testis is noted measuring 0.4 cm. Spectral Doppler analysis of the arterial and venous flow is normal in the left testis. Very large hydrocele, increased compared to 04/06/2023. Left epididymis is not well seen. No varicocele. ADDITIONAL FINDINGS: Subcutaneous swelling/edema. IMPRESSION: 1. Very large left-sided hydrocele and moderate right hydrocele, increased compared to prior. 2. Increased size of the right epididymis with hyperemia, recommend clinical correlation for acute epididymitis. 3. Soft tissue swelling. Date of Service: 07/04/23 EXAMINATION: CT ABDOMEN AND PELVIS WITH CONTRAST CLINICAL INFORMATION: Worsening scrotal pain COMPARISON: Noncontrast CT abdomen/pelvis and scrotal ultrasound 07/04/2023 TECHNIQUE: Multiple axial images were obtained from the superior aspect of the liver through the pubic symphysis after the administration of 75 mL of intravenous Omnipaque 350. Images were evaluated on independent dedicated 3-D workstation and 3-D images were reconstructed with concurrent radiologist supervision and subsequently interpreted. Oral contrast was not administered. This CT examination was performed using dose optimization techniques as appropriate, variously including the following: *Automated exposure control *Adjustment of mA and/or kV according to patient size (this includes techniques or standardized protocols for targeted exams where dose is matched to indication/reason for exam; i.e. extremities or head) *Use of iterative reconstruction technique DLP: 298 mGy-cm FINDINGS: LUNG BASES: Small right pleural effusion. CARDIOMEDIASTINUM: Heart normal in size with moderate-sized pericardial effusion. No coronary artery calcification. LIVER: Homogeneous in attenuation. Normal in size. GALLBLADDER: Noninflamed. BILIARY SYSTEM: No intrahepatic or extrahepatic biliary dilation. PANCREAS: Homogeneous in attenuation. SPLEEN: Normal in size. GENITOURINARY: Bilateral kidneys demonstrate symmetric enhancement. No perinephric fluid collection. No renal calculi. No hydroureteronephrosis. ADRENAL GLANDS: Unremarkable. REPRODUCTIVE: Prostamegaly. GASTROINTESTINAL: The visualized alimentary tract is normal in course. No evidence of obstruction. APPENDIX: The appendix is not visualized; however, no pericecal inflammatory changes are seen in the right lower quadrant. PERITONEUM: Trace free fluid in the pelvis. No pneumoperitoneum. No organized fluid collection. VASCULATURE: The abdominal aorta is normal in course and caliber. LYMPH NODES: No pathologically enlarged abdominal or pelvic lymph nodes. SOFT TISSUES/MUSCULOSKELETAL: Dilated blood vessels seen in the right inguinal canal. Multilevel degenerative changes of the spine. No focal osseous lesions. IMPRESSION: No acute abdominal or pelvic pathology. Dilated blood vessel seen in the right inguinal canal. Refer to prior scrotal ultrasound on 07/04/2023. Assessment & Plan Assessment & Plan (1) Hydrocele, bilateral: Code(s): N43.3 - Hydrocele, unspecified Category: Medical (2) Microscopic hematuria: Code(s): R31.29 - Other microscopic hematuria Category: Medical (3) BPH loc w urin obs/LUTS: Code(s): N40.1 - Benign prostatic hyperplasia with lower urinary tract symptoms Category: Medical (4) Bladder wall thickening: Code(s): N32.89 - Other specified disorders of bladder Category: Medical (5) Nocturia: Code(s): R35.1 - Nocturia Category: Medical (6) Urinary frequency: Code(s): R35.0 - Frequency of micturition Category: Medical (7) Abnormal urine cytology: Code(s): R82.89 - Other abnormal findings on cytological and histological examination of urine Category: Medical Plan continue tamsulosin 0.4 mg twice a day Continue VESIcare 5 mg q.a.m. No longer Taking Vistaril 25 mg Bilateral hydroceles left greater than right not symptomatic at this time Follow-up in 6 months Orders: Orders AMB Urinalysis Automated Today Z13.9 - Encounter for screening, unspecified AMB Post Void Residual by ultrasound Today N39.8 - Other specified disorders of urinary system Urine Cytology Today R31.29 - Other microscopic hematuria Medications: Discontinued hydroxyzine pamoate (Vistaril) Discontinued Reason: Doctor's Order 25 mg PO BEDTIME 30 caps 3RF Patient Instructions: The patient had an opportunity to ask questions regarding treatment plan. The patient expressed understanding and agreement with the above treatment plan. The patient is aware they should contact our office by phone for worsening of their current condition or the appearance of new symptoms. Compliance is encouraged with any medications and followup testing that is ordered. It is a privilege to be allowed the opportunity to participate in the urologic care of your patient. If you have any questions or concerns regarding treatment for the above conditions please do not hesitate to contact me. The office telephone contact is [phone]. This note is constructed in part using voice recognition software. While every effort has been made to ensure accuracy tax services intern errors may have been included. Yours sincerely, Rhonda Castañeda MD Coding Level of Care Code Est Pt Level 4 (61030) Complex EM visit Add On G2211 Diagnoses Hydrocele, bilateral N43.3 Microscopic hematuria R31.29 BPH loc w urin obs/LUTS N40.1 Bladder wall thickening N32.89 Nocturia R35.1 Urinary frequency R35.0 Abnormal urine cytology R82.89 CPT Codes Post Residual Void - PVR CPT Code: 16451-Csqb Void Residual by ultrasound ([id number])
== END 2023-09-17 11:33 | disposition home or self-care (01) ==
PROVIDERS: PCP Internal Medicine Geriatric Medicine; Visit Provider Urology
DX: N43.3 Hydrocele, unspecified (principal); R31.29 Other microscopic hematuria; N40.1 Benign prostatic hyperplasia with lower urinary tract symptoms; N32.89 Other specified disorders of bladder; R35.1 Nocturia; R35.0 Frequency of micturition; R82.89 Other abnormal findings on cytological and histological examination of urine; Z13.9 Encounter for screening, unspecified
CPT/HCPCS: 99214; G2211

== ENCOUNTER 2023-09-17 09:34 | Outpatient (REF) | payer OTHER, SELFPAY ==
[2023-09-17 18:05] LABS: Urine Cytology See Pathology rpt
== END 2023-09-17 09:35 | disposition home or self-care (01) ==
LOC: HO.LAB 09:34
PROVIDERS: PCP Internal Medicine Geriatric Medicine; Visit Provider Urology
DX: R31.29 Other microscopic hematuria (principal); N43.3 Hydrocele, unspecified; N40.1 Benign prostatic hyperplasia with lower urinary tract symptoms; N32.89 Other specified disorders of bladder; R35.1 Nocturia; R35.0 Frequency of micturition; R82.89 Other abnormal findings on cytological and histological examination of urine; N39.8 Other specified disorders of urinary system
CPT/HCPCS: 51798; 81003; 88112; 99212

== ENCOUNTER 2023-10-07 12:32 | Outpatient (REF) | payer OTHER, SELFPAY | END 2023-10-07 12:33 | disposition home or self-care (01) | LOC: HO.LAB 12:32 | PROVIDERS: PCP Internal Medicine Geriatric Medicine; Visit Provider Urology | DX: R82.89 Other abnormal findings on cytological and histological examination of urine (principal) | CPT/HCPCS: 88121 ==

== ENCOUNTER 2023-12-21 09:04 | Outpatient (REF) | payer OTHER, SELFPAY ==
[2023-12-21 10:39] LABS: TSH reflex Free T4 1.05 uIU/mL (0.32-4.0)
[2023-12-21 10:40] LABS: Cortisol Random 15.3 ug/dL
== END 2023-12-21 09:05 | disposition home or self-care (01) ==
LOC: HO.LAB 09:04
PROVIDERS: PCP Internal Medicine Geriatric Medicine; Visit Provider Internal Medicine Geriatric Medicine
DX: E87.1 Hypo-osmolality and hyponatremia (principal)
CPT/HCPCS: 36415; 82533; 84443

== ENCOUNTER 2024-03-21 10:04 | Outpatient (REF) | payer OTHER, SELFPAY ==
[2024-03-21 12:59] LABS: PSA,Total (Free>4and<10) 8.03 ng/mL (0.00-4.00)
[2024-03-22 11:33] LABS: Free Prostate Spec Ag 1.7 ng/mL; Percent Free Prostate Spec Ag 19 % (calc) (>25)
== END 2024-03-21 10:05 | disposition home or self-care (01) ==
LOC: HO.LAB 10:04
PROVIDERS: PCP Internal Medicine Geriatric Medicine; Visit Provider Urology
DX: Z12.5 Encounter for screening for malignant neoplasm of prostate (principal); Z13.9 Encounter for screening, unspecified
CPT/HCPCS: 36415; 51798; 81003; 84153; 84154; 99212

== ENCOUNTER 2024-03-21 10:04 | Outpatient (AMB) | payer OTHER, SELFPAY ==
--- NOTE | 2024-03-20 15:55 | MHC.OFFVIS ---
Intake Visit Reasons: 6m follow up/PVR Intake Note: Patient is present for 6M/PVR Urology Medication:SOLIFENACIN,TAMSULOSIN Antibiotic Allergy:NONE Blood Thinner:NONE TODAY'S PVR: 55ML'S Track Moving Machine Operator Required: No Allergies No Known Allergies Allergy (Verified 03/21/24 10:09) Medication List - Last Reconciled 03/21/24 by Rhonda Castañeda MD atorvastatin 20 mg PO DAILY furosemide (Lasix) 10 mg (1/2 x 20 mg) PO Q OTHER DAY gabapentin 300 mg PO DAILY latanoprost 0.005% 1 drp ophthalmic (eye) QPM losartan 25 mg PO DAILY naproxen 500 mg PO BID solifenacin (Vesicare) 5 mg PO DAILY tamsulosin 0.8 mg (2 x 0.4 mg) PO DAILY HPI Comments Details: 03/21/24-- 6 month FU--Ifeanyi is a 73 y/o here for follow-up. He was seen last on 07/16/2023 he was started on VESIcare and for urinary symptoms of urgency frequency. He has been on tamsulosin b.i.d. for BPH symptoms. Bilateral hydrocele left greater than right is not symptomatic. no recent PSA since 2019 Review of chart: 09/17/2023--Ifeanyi is here for follow-up. He was seen last on 07/16/2023 he was started on VESIcare and Vistaril for urinary symptoms of urgency frequency. He has been on tamsulosin b.i.d. for BPH symptoms. Bilateral hydrocele left greater than right is not symptomatic. He was evaluated for microscopic hematuria CT urogram was within normal limits urine cytology sent May 2022 had atypical cells. The patient states his PCP discontinued the Vistaril as he is on gabapentin and combination of these meds have a high trans of drowsiness. Bladder scan PVR is 46 mL. He is tolerating VESIcare 5 mg and will continue tamsulosin. Repeat urine cytology. 07/16/23--Ifeanyi is a Tamaz[place]-speaking male who who presents for office cystoscopy, he was last seen on 06/03/2023 with complaints of right inguinal pain. On examination he has bilateral hydrocele left greater than right. He was referred to General surgery due to right inguinal pain for further evaluation. He denies scrotal pain. He complains of urgency and frequency with nocturia 5-6 times. He was noted on evaluation to have an microscopic hematuria He previously had an MRI noting a hyperdense renal cyst, he was sent for CT urogram. Urine cytology sent on 06/03/[address] came [address] urogram no suspicious kidney lesions noted. Office cystoscopy findings--minimal petechiae changes noted, moderate trabeculations. No suspicious bladder lesions. [facility] Medical History Hydrocele, bilateral Renal mass of unknown nature Pectus carinatum BPH (benign prostatic hyperplasia) Urinary retention Surgical History Hx of cystoscopy History of surgery on lower extremity H/O inguinal hernia repair Social History Household Members: Spouse and Children Housing: House Do you presently have visiting nurse or other home services: No Alcohol intake: never Comment: reinforced on bed alarm Patient Tobacco Use Status: Never used Tobacco e-Cigarette/Vaping Use: Never Used service: No Review of Systems Const All systems reviewed & are unremarkable except as noted in HPI and below Reports no additional complaints Eyes Reports no additional complaints ENT Reports no additional complaints Card Reports no additional complaints Resp Reports no additional complaints GI Reports no additional complaints Reports as per HPI Musc Reports no additional complaints Skin/Breast Reports system reviewed and no additional complaints, except as documented Neuro Reports no additional complaints Psych Reports no additional complaints Endo Reports no additional complaints Kingsley/Lymph Reports no additional complaints Aller/Immun Reports no additional complaints Office Procedures Post Void Residual Post Residual Void Post Void Residual (PVR): 55 14414-Yqin Void Residual by ultrasound Results AMB Urinalysis, Automated UA Leukoctes 125 Saturnino/uL Last Edit by EDITH Geronimo on 03/21/24 10:18 UA Nitrite Negative Last Edit by EDITH Geronimo on 03/21/24 10:18 UA Urobilinogen 0.2 mg/dL Last Edit by EDITH Geronimo on 03/21/24 10:18 UA Protein 30 mg/dL Last Edit by EDITH Geronimo on 03/21/24 10:18 UA pH 6.0 Last Edit by [facility]aug[facility] on 03/21/24 10:18 UA Blood 25 Jagdeep/uL Last Edit by Kayla Daugherty [facility] on 03/21/24 10:18 UA Specific [place] 1.025 Last Edit by Kayla Daugherty [facility] on 03/21/24 10:18 UA Ketone Positive Last Edit by Kayla Daugherty [facility] on 03/21/24 10:18 UA Bilirubin 1 mg/dL Last Edit by Kayla Daugherty [facility] on 03/21/24 10:18 UA Glucose 0 mg/dL Last Edit by Kayla Daugherty [facility] on 03/21/24 10:18 Results Reviewed Results Reviewed: Laboratory Last Values Urine pH (Auto) 6.0 03/21/24 10:16 Specific [place] (Auto) 1.025 03/21/24 10:16 Urine Protein (Auto) 30 mg/dL 03/21/24 10:16 Glucose (UA)(Auto) 0 mg/dL 03/21/24 10:16 Urine Ketones (Auto) Positive 03/21/24 10:16 Urine Blood (Auto) 25 Jagdeep/uL 03/21/24 10:16 Urine Nitrite (Auto) Negative 03/21/24 10:16 Urine Bilirubin (Auto) 1 mg/dL 03/21/24 10:16 Urine Urobilinogen (Auto) 0.2 mg/dL 03/21/24 10:16 Leukocyte Esterase (Auto) 125 Saturnino/uL 03/21/24 10:16 Collected: 06/03/23 Location: [facility] Received: 06/05/23 Diagnosis Urine: Few atypical urothelial cells. COMMENT: Examination of a monolayer preparation slides shows occasional benign squamous cells, occasional benign urothelial cells, and few atypical urothelial cells with increased nuclear:cytoplasmic ratio and small nucleoli. There are scattered red blood cells and inflammatory cells also present. Date: 07/04/23 US SCROTUM CLINICAL INFORMATION: Testicular pain. COMPARISON: Scrotal ultrasound 04/06/2023. TECHNIQUE: A sonogram of the scrotum was performed assessing blue-scale appearance and color Doppler flow. Spectral Doppler analysis of the arterial and venous flow were performed in the testes bilaterally. FINDINGS: RIGHT: Right testicle measures 4.5 x 2.6 x 3.1 cm, volume 18.9 mL. No focal testicular parenchymal lesions are visualized. Spectral Doppler analysis of the arterial and venous flow is normal in the right testis. Right epididymis appears enlarged and hyperemic. Moderate size hydrocele. No varicocele. LEFT: Left testicle measures 4.1 x 2.2 x 2.8 cm, volume 12.8 mL. No focal testicular parenchymal lesions are visualized. A small appendix testis is noted measuring 0.4 cm. Spectral Doppler analysis of the arterial and venous flow is normal in the left testis. Very large hydrocele, increased compared to 04/06/2023. Left epididymis is not well seen. No varicocele. ADDITIONAL FINDINGS: Subcutaneous swelling/edema. IMPRESSION: 1. Very large left-sided hydrocele and moderate right hydrocele, increased compared to prior. 2. Increased size of the right epididymis with hyperemia, recommend clinical correlation for acute epididymitis. 3. Soft tissue swelling. Date of Service: 07/04/23 EXAMINATION: CT ABDOMEN AND PELVIS WITH CONTRAST CLINICAL INFORMATION: Worsening scrotal pain COMPARISON: Noncontrast CT abdomen/pelvis and scrotal ultrasound 07/04/2023 TECHNIQUE: Multiple axial images were obtained from the superior aspect of the liver through the pubic symphysis after the administration of 75 mL of intravenous Omnipaque 350. Images were evaluated on independent dedicated 3-D workstation and 3-D images were reconstructed with concurrent radiologist supervision and subsequently interpreted. Oral contrast was not administered. This CT examination was performed using dose optimization techniques as appropriate, variously including the following: *Automated exposure control *Adjustment of mA and/or kV according to patient size (this includes techniques or standardized protocols for targeted exams where dose is matched to indication/reason for exam; i.e. extremities or head) *Use of iterative reconstruction technique DLP: 298 mGy-cm FINDINGS: LUNG BASES: Small right pleural effusion. CARDIOMEDIASTINUM: Heart normal in size with moderate-sized pericardial effusion. No coronary artery calcification. LIVER: Homogeneous in attenuation. Normal in size. GALLBLADDER: Noninflamed. BILIARY SYSTEM: No intrahepatic or extrahepatic biliary dilation. PANCREAS: Homogeneous in attenuation. SPLEEN: Normal in size. GENITOURINARY: Bilateral kidneys demonstrate symmetric enhancement. No perinephric fluid collection. No renal calculi. No hydroureteronephrosis. ADRENAL GLANDS: Unremarkable. REPRODUCTIVE: Prostamegaly. GASTROINTESTINAL: The visualized alimentary tract is normal in course. No evidence of obstruction. APPENDIX: The appendix is not visualized; however, no pericecal inflammatory changes are seen in the right lower quadrant. PERITONEUM: Trace free fluid in the pelvis. No pneumoperitoneum. No organized fluid collection. VASCULATURE: The abdominal aorta is normal in course and caliber. LYMPH NODES: No pathologically enlarged abdominal or pelvic lymph nodes. SOFT TISSUES/MUSCULOSKELETAL: Dilated blood vessels seen in the right inguinal canal. Multilevel degenerative changes of the spine. No focal osseous lesions. IMPRESSION: No acute abdominal or pelvic pathology. Dilated blood vessel seen in the right inguinal canal. Refer to prior scrotal ultrasound on 07/04/2023. Assessment & Plan Assessment & Plan (1) Hydrocele, bilateral: Code(s): N43.3 - Hydrocele, unspecified Category: Medical (2) Microscopic hematuria: Code(s): R31.29 - Other microscopic hematuria Category: Medical (3) BPH loc w urin obs/LUTS: Code(s): N40.1 - Benign prostatic hyperplasia with lower urinary tract symptoms Category: Medical (4) Bladder wall thickening: Code(s): N32.89 - Other specified disorders of bladder Category: Medical (5) Nocturia: Code(s): R35.1 - Nocturia Category: Medical (6) Urinary frequency: Code(s): R35.0 - Frequency of micturition Category: Medical Plan VESIcare 5 mg, tamsulosin 0.8 mg, PSA screening Orders: Orders AMB Urinalysis Automated 03/21/24 Z13.9 - Encounter for screening, unspecified PSA,Total (Free>4and<10) 03/21/24 Z12.5 - Encounter for screening for malignant neoplasm of prostate Medications: New solifenacin (Vesicare) 5 mg PO DAILY 90 tabs 3RF tamsulosin 0.8 mg (2 x 0.4 mg) PO DAILY 180 caps 3RF Patient Instructions: The patient had an opportunity to ask questions regarding treatment plan. The patient expressed understanding and agreement with the above treatment plan. The patient is aware they should contact our office by phone for worsening of their current condition or the appearance of new symptoms. Compliance is encouraged with any medications and followup testing that is ordered. It is a privilege to be allowed the opportunity to participate in the urologic care of your patient. If you have any questions or concerns regarding treatment for the above conditions please do not hesitate to contact me. The office telephone contact is [phone]. This note is constructed in part using voice recognition software. While every effort has been made to ensure accuracy yarn bleaching machine operator errors may have been included. Yours sincerely, Rhonda Castañeda MD Coding Level of Care Code Est Pt Level 4 (57248) Diagnoses Hydrocele, bilateral N43.3 Microscopic hematuria R31.29 BPH loc w urin obs/LUTS N40.1 Bladder wall thickening N32.89 Nocturia R35.1 Urinary frequency R35.0 CPT Codes Post Residual Void - PVR CPT Code: 26127-Aoig Void Residual by ultrasound ([id number])
== END 2024-03-21 10:48 | disposition home or self-care (01) ==
LOC: HO.HUSH 10:04
PROVIDERS: PCP Internal Medicine Geriatric Medicine; Visit Provider Urology
DX: N43.3 Hydrocele, unspecified (principal); R31.29 Other microscopic hematuria; N40.1 Benign prostatic hyperplasia with lower urinary tract symptoms; N32.89 Other specified disorders of bladder; R35.1 Nocturia; R35.0 Frequency of micturition
CPT/HCPCS: 99214

== ENCOUNTER 2024-04-11 09:12 | Outpatient (REF) | payer OTHER, SELFPAY ==
[2024-04-11 12:08] LABS: Anion Gap 10 (12-20); Blood Urea Nitrogen 23 mg/dL (9-16); Calcium 9.5 mg/dL (8.4-10.2); Carbon Dioxide 32 mmol/L (22-29); Chloride 103 mmol/L (96-108); Estimated Glomerular Filt Rate > 60; Glucose Random 93 mg/dL (60-115); Potassium 4.1 mmol/L (3.3-5.1); Sodium 141 mmol/L (135-145)
== END 2024-04-11 09:13 | disposition home or self-care (01) ==
LOC: HO.HHCL 09:12
PROVIDERS: Visit Provider Internal Medicine Geriatric Medicine
DX: I10 Essential (primary) hypertension (principal); E87.1 Hypo-osmolality and hyponatremia
CPT/HCPCS: 36415; 80048

== ENCOUNTER 2024-06-27 09:14 | Inpatient (IN) | payer OTHER, SELFPAY ==
[2024-06-27] VITALS (8 sets, daily range): BP systolic 108–123; BP diastolic 55–77; PULSE 82–102; RESP 14–24; TEMP 36.2–36.9; O2SAT 87–99; BMI 24.4
--- NOTE | ~2024-06-27 | XR_ITS ---
EXAMINATION: XR CHEST CLINICAL INFORMATION: re-eval COMPARISON: June 27, 2024. TECHNIQUE: Frontal view of the chest was obtained. FINDINGS: Deformity of the thorax due to the severe scoliosis. Confluent opacity in the right lower and left lower hemithoraces. Cardiomediastinal silhouette overlaps the left hemithorax. No gross pneumothorax. No gross pleural effusion. XR/XR chest 1V IMPRESSION: Consider multifocal pneumonia, lower lung lobes. Electronically signed by: Fabian Chambers MD 06/29/2024 08:37 AM EST
--- NOTE | ~2024-06-27 | CT_ITS ---
EXAMINATION: CT ANGIOGRAM CHEST CLINICAL INFORMATION: Hypoxia. Hemoptysis. COMPARISON: None available. TECHNIQUE: Multiple axial images were obtained through the chest after the administration of 65 mL of Omnipaque 350 intravenous contrast. Extensive vascular post-processing including two-dimensional and three-dimensional reformatted images were created and reviewed on an independent workstation. This CT examination was performed using dose optimization techniques as appropriate, variously including the following: *Automated exposure control *Adjustment of mA and/or kV according to patient size (this includes techniques or standardized protocols for targeted exams where dose is matched to indication/reason for exam; i.e. extremities or head) *Use of iterative reconstruction technique DLP: 209 mGy centimeter. FINDINGS: No intraluminal filling defects within the main pulmonary artery or its main branches. No aneurysm or dissection, thoracic aorta. Limited evaluation due to patient's positioning on the CT scanner secondary to severe dextroconvex thoracic scoliosis and deformity of the thorax/rib cage. Bilateral pleural effusion, small to moderate volume. Pulmonary mosaic pattern. Patchy pulmonary groundglass bilaterally extending from the perihilar region. No pneumothorax. No honeycombing. 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 Small pericardial effusion. CT/CT angio chest PE protocol IMPRESSION: No acute pulmonary artery emboli. No thoracic aortic aneurysm or dissection. Posterior mild interstitial edema and bilateral pleural effusions with small pericardial effusion. Superimposed acute inflammatory versus infectious process cannot be excluded. Severe scoliosis. Fleischner guidelines were followed. Electronically signed by: Fabian Chambers MD 06/27/2024 02:03 PM [facility]
--- NOTE | ~2024-06-27 | XR_ITS ---
EXAMINATION: XR CHEST 2 VIEWS HISTORY: cough COMPARISON: Comparison is made with the prior examination dated 06/03/2023. FINDINGS: PA and lateral views of the chest are submitted. There are low lung volumes. There is opacification of the left lung base, consistent with atelectasis or pneumonia. The right lung is grossly clear. There is no pleural effusion, pneumothorax, or pulmonary vascular congestion. The heart is normal in size. There is severe dextroscoliosis of the spine. XR/XR chest 2V IMPRESSION: Low lung volumes. Left lower lobe atelectasis versus pneumonia. Electronically signed by: Kaiser Muller MD 06/27/2024 11:02 AM [facility]
[2024-06-27 10:46] LABS: MANUAL DIFF FLAG NO
[2024-06-27 10:50] LABS: Basophils Percent Auto 0.3 % (0-2); Hematocrit 42.1 % (42.0-52.0); Hemoglobin 13.7 g/dl (14.0-18.0); Imm Gran Abs Auto 0.02 X10*3/uL (0.00-0.03); Imm Gran Pct Auto 0.6 % (0.0-0.4); Lymphocytes Absolute Auto 0.8 X10*3/uL (1.2-4.9); Lymphocytes Percent Auto 23.5 % (20-40); Mean Corpuscular HGB Conc 32.5 g/dl (31.0-36.0); Mean Corpuscular Hemoglobin 31.8 pg (27.0-33.0); Mean Corpuscular Volume 97.7 fL (80.0-98.0); Mean Platelet Volume 9.9 fL (9.4-12.4); Monocytes Absolute Auto 0.3 X10*3/uL (0.1-1.2); Monocytes Percent Auto 10.5 % (2-11); Neutrophils Absolute Auto 2.1 x10*3/uL (2.0-8.3); Neutrophils Percent Auto 65.1 % (45-73); Red Blood Count 4.31 X10*6/uL (4.60-5.80); Red Cell Distribution Width 12.6 % (11.0-16.0); White Blood Count 3.2 X10*3/uL (4.8-10.8)
--- NOTE | 2024-06-27 11:04 | ED_ITS ---
HPI - URI/Sore Throat General Chief Complaint: Upper Respiratory Symptoms Stated Complaint: chest congestion pressure Time Seen by Provider: 06/27/24 11:02 Source: patient and RN notes reviewed Mode of arrival: ambulatory Limitations: no limitations History of Present Illness ED Provider: Ailin Gonzales PA-C HPI Narrative: This is a 73-year-old male,unspecified chf, congenital vs acquired pectus carinatum, bph, chronic bilateral hydroceles self catheterization, who presents emergency department with complaints of cough, congestion for the last 3 days. Patient also reports some chest pain with coughing only. He denies any recent travel, surgery, or hospitalizations. No history of blood clots. He is not on anticoagulation. He states that he has been coughing up blood, denies history of similar symptoms. He denies smoking history. He has no history of asthma or COPD. Patient reports positive sick exposure at home. He was born in the [place]. He is up-to-date with all his immunizations. Denies history of incarceration, or homelessness. Denies any fevers, chills, palpitations, abdominal pain, nausea, vomiting or diarrhea. No bloody or black stool. No other complaints or concerns at this time. MD elicited complaint: cough and nasal congestion Onset (ago): day(s) Able to tolerate fluids by mouth: Yes Exacerbating factors: nothing Relieving factors: nothing Context: sick contacts Associated symptoms: cough, chest pain and shortness of breath Related Data Home Medications ?Medication ?Instructions ?Recorded ?Confirmed atorvastatin 20 mg tablet 20 mg PO DAILY 06/03/23 03/21/24 gabapentin 300 mg capsule 300 mg PO DAILY 06/03/23 03/21/24 latanoprost 0.005 % eye drops 1 drp ophthalmic (eye) QPM 06/03/23 03/21/24 naproxen 500 mg tablet 500 mg PO BID 06/03/23 03/21/24 losartan 25 mg tablet 25 mg PO DAILY 07/04/23 03/21/24 Previous Rx's ?Medication ?Instructions ?Recorded furosemide 20 mg tablet (Lasix) 10 mg (1/2 x 20 mg) PO Q OTHER DAY 06/04/23 #3 tabs solifenacin 5 mg tablet (Vesicare) 5 mg PO DAILY #90 tabs 03/21/24 tamsulosin 0.4 mg capsule 0.8 mg (2 x 0.4 mg) PO DAILY #180 03/21/24 caps finasteride 5 mg tablet 5 mg PO DAILY 30 days #30 tabs 03/28/24 Allergies Allergy/AdvReac Type Severity Reaction Status Date / Time No Known Allergies Allergy Verified 06/27/24 09:58 Review of Systems 2 Review of Systems: Yes all other systems are reviewed and are negative Constitutional: Constitutional: Reports as per [facility] Past Medical History Medical History Hydrocele, bilateral Renal mass of unknown nature Pectus carinatum BPH (benign prostatic hyperplasia) Urinary retention Surgical History Hx of cystoscopy History of surgery on lower extremity H/O inguinal hernia repair Social History Social History Household Members: Spouse and Children Housing: House Do you presently have visiting nurse or other home services: No Alcohol intake: never Comment: reinforced on bed alarm Patient Tobacco Use Status: Never used Tobacco e-Cigarette/Vaping Use: Never Used Advance Directives: Yes Advance Directives on File: Yes Advance Directives Date on File: 07/08/23 service: No Physical Exam 2 Vital Signs: Vital Signs: Last Vital Signs Temp 98.2 F 06/27/24 14:43 Pulse 96 06/27/24 14:43 Resp 14 06/27/24 14:43 BP 123/63 06/27/24 14:43 Pulse Ox 97 06/27/24 14:43 O2 Del Method Nasal Cannula 06/27/24 14:43 O2 Flow Rate 1 06/27/24 14:43 BMI result Body Mass Index 24.4 Const: General: cooperative, comfortable and no acute distress O rientation/consciousness: patient oriented x3 Limitations: no limitations HEENT: Head: Yes normal to inspection, Yes normocephalic and Yes atraumatic Ears: hearing grossly normal bilaterally General nose exam: Normal external nose present Face and sinus: Yes normal facial exam Mouth: Normal oral and palatal mucosa present, oropharynx normal and moist mucous membranes Throat: Yes posterior oropharynx normal Eyes: General: appearance normal, both eyes and all related structures E yelids: Yes eyelids normal Conjunctivae: conjunctivae normal Sclerae: s clerae normal Pupils: Equal, round and reactive pupils present EOM: EOMs intact bilaterally Neck: Neck: Yes normal visual inspection, Yes full ROM and Yes no lymphadenopathy Lymphatic: no lymphadenopathy noted Chest: Other: Positive pectus excavatum noted. No bruising Resp: Effort & Inspection: normal respiratory effort and able to speak in complete sentences Auscultation: clear to auscultation bilaterally, no crackles, no rales, no rhonchi and no wheezes Cardio: Rate: regular rate Rhythm: regular rhythm Heart sounds: S1 normal heart sound present and S2 normal heart sound present GI: Other: Abdomen is soft, nontender, nondistended Inspection: Yes normal to inspection Skin: General skin exam: no rashes or lesions noted Trauma: no lacerations or abrasions Wounds: no wounds Neuro: General: patient oriented x3 and moves all extremities Cranial nerves: Yes Equal, round and reactive pupils present Extrem: Other: No pitting edema noted bilaterally, no calf tenderness. General: Yes normal to inspection Right upper extremity: normal to inspection Left upper extremity: normal to inspection Right lower extremity: normal to inspection Left lower extremity: normal to inspection Course Reevaluation(s) Reevaluation #1: CTA revealing posterior mild interstitial edema, and bilateral pleural effusions with small pericardial effusion. Superimposed acute inflammatory versus infectious process can not be excluded. Severe scoliosis noted. Given hypoxia, in the setting of influenza, pneumonia, patient will be admitted for hypoxia, and influenza. Patient re-evaluated, feeling much better after receiving antibiotics, Solu-Medrol and updraft. Patient is agreeable for admission. Time: 14:12 Medications Administered Discontinued Medications Generic Name Dose Route Start Last Admin Trade Name Freq PRN Reason Stop Dose Admin Albuterol/Ipratropium 3 ml 06/27/24 11:52 06/27/24 11:57 Albuterol/Iprat 2.5/0.5mg 3 Ml Ampul.Neb INHALE 06/27/24 11:53 3 ml ONCE ONE Administration Azithromycin 500 mg/ Sodium 250 mls @ 125 mls/hr 06/27/24 11:34 06/27/24 14:35 Chloride IV 06/27/24 13:33 125 mls/hr ONCE ONE Administration Doxycycline Hyclate 100 mg/ 250 mls @ 166.67 mls/hr 06/27/24 11:34 06/27/24 11:57 Sodium Chloride IV 06/27/24 13:03 166.67 mls/hr ONCE ONE Administration Iohexol 100 ml 06/27/24 13:51 06/27/24 13:51 Iohexol 350 Mg/Ml 100 Ml Infus..Btl IV 06/27/24 13:52 65 ml ONCE ONE Administration Methylprednisolone Sodium Succinate 30 mg 06/27/24 11:34 06/27/24 11:57 Methylprednisolone Sod Succ 40 Mg/Ml Vial IVPUSH 06/27/24 11:35 30 mg ONCE ONE Administration Medical Decision Making Medical Decision Making [facility] Narrative: This is a 73-year-old male who presents emergency department for evaluation of shortness for breath, cough, congestion, and hemoptysis for the last 3 days. On arrival, patient found to be hypoxic at 87% on room air, he was placed on 3 L. Upon my assessment, patient 99% on 3 L, turned down nasal cannula to 1 L. He was maintaining oxygen saturation at 94%. Lungs are diminished with inspiratory and expiratory wheezes noted throughout. No peripheral edema noted. He has no risk factors for TB. He does have a history of CHF. Differential diagnoses include PE, pneumonia, influenza, acute respiratory failure, CHF exacerbation. We will continue to closely monitor. Plan: Labs, EKG, chest x-ray. Chest x-ray indeterminate for atelectasis versus pneumonia. Will obtain lactic, cultures, VBG, will also order ED bronch protocol, Solu-Medrol, and antibiotics to cover for pneumonia. Will also order CTA to rule out PE. Discussed with patient and family at bedside that he will likely require hospitalization given hypoxia with no former history of O2 dependency. Differential Diagnosis Differential Diagnoses: The differential diagnosis associated with the presentation includes See above Admission/Observation Consideration of admission/observation: Escalation of care including admission/observation considered Patient requiring admission secondary to hypoxia, previously not on supplemental O2. Lab Data [facility] Lab Attestation statement: I reviewed the patient's lab results. Patient with leukopenia at 3.2, hemoglobin 13.7/hematocrit 42, platelet 102k, chemistry revealing normal potassium and sodium, carbon dioxide slightly elevated at 31, BUN at 25, troponin, LFTs also pending at this time. See course comment for additional diagnostics, patient positive for influenza A. 06/27/24 10:42 06/27/24 10:42 Labs: Lab Results 06/27/24 06/27/24 06/27/24 Range/Units 10:42 11:36 11:36 WBC 3.2 L (4.8-10.8) X10*3/uL RBC 4.31 L (4.60-5.80) X10*6/uL Hgb 13.7 L (14.0-18.0) g/dl Hct 42.1 (42.0-52.0) % MCV 97.7 (80.0-98.0) fL MCH 31.8 (27.0-33.0) pg MCHC 32.5 (31.0-36.0) g/dl RDW 12.6 (11.0-16.0) % Plt Count 102 L D (160-400) X10*3/uL MPV 9.9 (9.4-12.4) fL Immature Gran % (Auto) 0.6 H (0.0-0.4) % Neut % (Auto) 65.1 (45-73) % Lymph % (Auto) 23.5 (20-40) % [place] % (Auto) 10.5 (2-11) % Eos % (Auto) 0.0 (0-4) % Baso % (Auto) 0.3 (0-2) % Lymph # (Auto) 0.8 L (1.2-4.9) X10*3/uL [place] # (Auto) 0.3 (0.1-1.2) X10*3/uL Eos # (Auto) 0.0 (0.0-0.4) X10*3/uL Baso # (Auto) 0.0 (0.0-0.2) X10*3/uL Abs Immat Gran (auto) 0.02 (0.00-0.03) X10*3/uL Absolute Neuts (auto) 2.1 (2.0-8.3) x10*3/uL Absolute Nucleated RBC 0.000 (0.0-0.012) X10*3/uL Nucleated RBC % (auto) 0.0 (0.0-0.2) /100WBC Hold Purple Top SEE NOTE SEE NOTE PT (10.9-12.4) SEC INR (0.9-1.1) VBG pH (7.32-7.43) VBG pCO2 mmHg VBG pO2 mmHg VBG HCO3 (22-26) mmol/L VBG O2 Saturation % VBG Base Excess mmol/L Sodium 140 (135-145) mmol/L Potassium 4.6 (3.3-5.1) mmol/L Chloride 104 (96-108) mmol/L Carbon Dioxide 31 H (22-29) mmol/L Anion Gap 10 L (12-20) BUN 25 H (9-16) mg/dL Creatinine 0.71 (0.5-1.4) mg/dL Estim Creat Clear Calc 41.8 Estimated GFR > 60 Random Glucose 100 (60-115) mg/dL Lactic Acid 1.0 (0.5-2.0) mmol/L Calcium 8.5 D (8.4-10.2) mg/dL Total Bilirubin 0.2 (0.0-1.0) mg/dL Direct Bilirubin < 0.2 (0.0-0.5) mg/dL AST 28 (5-37) U/L ALT 10 (0-40) U/L Alkaline Phosphatase 84 (39-117) U/L Troponin I High Sens 21.0 D (<3.5-35.0) ng/L B-Natriuretic Peptide 41 (<100) pg/mL Total Protein 6.6 (6.5-8.0) g/dL Albumin 3.6 (3.5-5.0) g/dL Influenza Type A (PCR) POSITIVE A (Negative) Influenza Type B (PCR) NEGATIVE (Negative) RSV RNA Qual (PCR) NEGATIVE (Negative) SARS-CoV-2 RNA (RT-PCR) NEGATIVE (Negative) 06/27/24 06/27/24 Range/Units 11:37 11:58 WBC (4.8-10.8) X10*3/uL RBC (4.60-5.80) X10*6/uL Hgb (14.0-18.0) g/dl Hct (42.0-52.0) % MCV (80.0-98.0) fL MCH (27.0-33.0) pg MCHC (31.0-36.0) g/dl RDW (11.0-16.0) % Plt Count (160-400) X10*3/uL MPV (9.4-12.4) fL Immature Gran % (Auto) (0.0-0.4) % Neut % (Auto) (45-73) % Lymph % (Auto) (20-40) % [place] % (Auto) (2-11) % Eos % (Auto) (0-4) % Baso % (Auto) (0-2) % Lymph # (Auto) (1.2-4.9) X10*3/uL [place] # (Auto) (0.1-1.2) X10*3/uL Eos # (Auto) (0.0-0.4) X10*3/uL Baso # (Auto) (0.0-0.2) X10*3/uL Abs Immat Gran (auto) (0.00-0.03) X10*3/uL Absolute Neuts (auto) (2.0-8.3) x10*3/uL Absolute Nucleated RBC (0.0-0.012) X10*3/uL Nucleated RBC % (auto) (0.0-0.2) /100WBC Hold Purple Top PT 11.8 (10.9-12.4) SEC INR 1.0 (0.9-1.1) VBG pH 7.43 (7.32-7.43) VBG pCO2 47 mmHg VBG pO2 54 mmHg VBG HCO3 31 H (22-26) mmol/L VBG O2 Saturation 87.0 % VBG Base Excess 6.3 mmol/L Sodium (135-145) mmol/L Potassium (3.3-5.1) mmol/L Chloride (96-108) mmol/L Carbon Dioxide (22-29) mmol/L Anion Gap (12-20) BUN (9-16) mg/dL Creatinine (0.5-1.4) mg/dL Estim Creat Clear Calc Estimated GFR Random Glucose (60-115) mg/dL Lactic Acid (0.5-2.0) mmol/L Calcium (8.4-10.2) mg/dL Total Bilirubin (0.0-1.0) mg/dL Direct Bilirubin (0.0-0.5) mg/dL AST (5-37) U/L ALT (0-40) U/L Alkaline Phosphatase (39-117) U/L Troponin I High Sens (<3.5-35.0) ng/L B-Natriuretic Peptide (<100) pg/mL Total Protein (6.5-8.0) g/dL Albumin (3.5-5.0) g/dL Influenza Type A (PCR) (Negative) Influenza Type B (PCR) (Negative) RSV RNA Qual (PCR) (Negative) SARS-CoV-2 RNA (RT-PCR) (Negative) Independent Interpretation I performed an independent interpretation of an: EKG Interpretation: right bundle-branch block, ventricular rate of 89 beats per minute, similar- appearing EKG from previous. Radiology Impression Discussion of test interpretation with radiology: I have reviewed the radiologist's reading. Radiologist Impression: HISTORY: cough COMPARISON: Comparison is made with the prior examination dated 06/03/2023. FINDINGS: PA and lateral views of the chest are submitted. There are low lung volumes. There is opacification of the left lung base, consistent with atelectasis or pneumonia. The right lung is grossly clear. There is no pleural effusion, pneumothorax, or pulmonary vascular congestion. The heart is normal in size. There is severe dextroscoliosis of the spine. XR/XR chest 2V IMPRESSION: Low lung volumes. Left lower lobe atelectasis versus pneumonia. Electronically signed by: Kaiser Muller MD 06/27/2024 11:02 AM [facility] Dictated By: Kaiser Muller MD Discharge Plan Discharge Clinical Impression: Pneumonia, Hypoxia, Influenza A Prescriptions: No Action finasteride 5 mg tablet 5 mg PO DAILY 30 Days Qty: 30 4RF furosemide [Lasix] 20 mg tablet 10 mg PO Q OTHER DAY Qty: 3 0RF Rx Instructions: Thursday, Thursday, Thursday losartan 25 mg tablet 25 mg PO DAILY naproxen 500 mg tablet 500 mg PO BID atorvastatin 20 mg tablet 20 mg PO DAILY gabapentin 300 mg capsule 300 mg PO DAILY latanoprost 0.005 % drops 1 drp ophthalmic (eye) QPM solifenacin [Vesicare] 5 mg tablet 5 mg PO DAILY Qty: 90 3RF tamsulosin 0.4 mg capsule 0.8 mg PO DAILY Qty: 180 3RF Print Language: Kinyarwanda
[2024-06-27 11:06] LABS: Platelet Count 102 X10*3/uL (160-400)
[2024-06-27 11:08] LABS: Anion Gap 10 (12-20); Blood Urea Nitrogen 25 mg/dL (9-16); Calcium 8.5 mg/dL (8.4-10.2); Carbon Dioxide 31 mmol/L (22-29); Chloride 104 mmol/L (96-108); Creatinine Clr Calc Pharmacy 41.8; Estimated Glomerular Filt Rate > 60; Glucose Random 100 mg/dL (60-115); Potassium 4.6 mmol/L (3.3-5.1); Sodium 140 mmol/L (135-145)
[2024-06-27 11:28] LABS: Influenza A PCR POSITIVE (Negative); Influenza B PCR NEGATIVE (Negative); Resp Syncy Virus RNA Qual PCR NEGATIVE (Negative); SARS COV2 PCR INHOUSE NEGATIVE (Negative)
--- NOTE | 2024-06-27 11:34 | ECG_ITS ---
Test Reason : cp Blood Pressure : */* mmHG Vent. Rate : 89 BPM Atrial Rate : 89 BPM P-R Int : 130 ms QRS Dur : 114 ms QT Int : 374 ms P-R-T Axes : 63 131 44 degrees QTcB Int : 455 ms Normal sinus rhythm Right bundle branch block Abnormal ECG When compared with ECG of 03-Jun-2023 17:19, No significant change was found Referred By: Ailin Gonzales Electronically Signed By: NATO COLLIER
[2024-06-27 11:47] LABS: Alanine Aminotransferase 10 U/L (0-40); Albumin Level 3.6 g/dL (3.5-5.0); Alkaline Phosphatase 84 U/L (39-117); Aspartate Amino Transferase 28 U/L (5-37); Bilirubin Direct < 0.2 mg/dL (0.0-0.5); Bilirubin Total 0.2 mg/dL (0.0-1.0); Total Protein 6.6 g/dL (6.5-8.0)
[2024-06-27 11:55] LABS: B Type Natriuretic Peptide 41 pg/mL (<100)
[2024-06-27] MEDS: Doxycycline Hyclate 100 MG in 0.9 % Sodium Chloride 250 ML 166.67 MG IV (11:57)
[2024-06-27] MEDS: Albuterol/Iprat 2.5/0.5MG 3 ML AMPUL.NEB INHALE ×2 (11:57→20:45)
[2024-06-27] MEDS: methylPREDNISolone Sod Succ 40 MG/ML VIAL 30 MG IVPUSH (11:57)
[2024-06-27 12:10] LABS: Prothrombin Time 11.8 SEC (10.9-12.4)
[2024-06-27 12:15] LABS: Venous Blood Gas Refer to POC result
[2024-06-27 12:15] LABS: VBG Base Excess 6.3 mmol/L; VBG HCO3 31 mmol/L (22-26); VBG pCO2 47 mmHg; VBG pH 7.43 (7.32-7.43); VBG pO2 54 mmHg
[2024-06-27] MEDS: iohexoL 350 MG/ML 100 ML INFUS..BTL IV (13:51)
--- OUTSIDE RECORDS SUMMARY | 2024-06-27 13:55 | XMS_ITS | Encounter Summary ---
Author Organization [employer] Address [address] [place] [address] Care Team Providers Care Technical Aid Name Role Phone Name, Jamie DURHAM Primary Care Provider [phone] Encounter Details Date Type Department Care Team (Late st Contact Info) Description 06/14/2023 Abstract [facility] [address] [place], [place] [id number] Name, MD Jamie [address] [place] [address] Social History Tobacco Use Types Packs/Day Years Used Date Smoking Tobacco: Never Smokeless Tobacco: Never Alcohol Use Standard Drinks/Week Comments Yes 0 (1 standard drink = 0.6 oz pur e alcohol) occassional Housing Stability Answer Date Recorded What is your housing situation today? I have taylor frausto 03/07/[address] you li ve. Do you have problems with any of the following? None of the above 03/07/2023 Food Insecurity Answer Date Recorded Within the past 12 months, y ou worried that your food would run out before you got money to buy more: Sometimes True 2022 Within the past 12 months,th e food you bought just didn't last and you didn't have enough money to get more: Sometimes True 03/07/2023 Transportation Answer Date Recorded In the past 12 months, has l ack of transportation kept you from medical appts, meetings, work or from getting things needed for daily living? No 03/07/2023 Utilities Answer Date Recorded In the past 12 months, has t he electric, gas, oil or water company threatened to shut off services in your home? No 03/07/2023 Depression Answer Date Recorded Patient Health Questionnaire-2 Score 0 04/07/2022 Sex and Gender Information Value Date Recorded Sex Assigned at Male 03/03/2022 10:25 AM EDT Legal Sex Male 10:25 AM EDT Gender Identity Male 03/03/2022 10:25 AM EDT Sexual Orientation Straight 03/03/2022 10 :25 AM EDT documented as of this encounter Plan of Treatment Upcoming Encounters Date Type Department Care Team (Late st Contact Info) Description 08/11/2024 11:15 AM EDT Office Visit [facility] [address] [place] [id number] Name, MD Jamie [address] [place] [id number] documented as of this encounter Visit Diagnoses Not on filedocumented in this encounter Care Teams Technical Aid Relationship Specialty Start Date End Date NameJamie MD [address] [place] [id number] PCP - General Family Medicine 10/29/15 documented as of this encounter
--- OUTSIDE RECORDS SUMMARY | 2024-06-27 13:55 | XMS_ITS | Encounter Summary ---
Author Organization [employer] Address [address] [place] [address] Care Team Providers Care Hairspring I Inspector Name Role Phone Name, Jamie DURHAM Primary Care Provider [phone] Encounter Details Date Type Department Care Team ([facility] st Contact Info) Description 08/26/2023 Telephone [facility] [address] [place], [place] [phone] Name, MD Jamie [address] [place] [address] Social History Tobacco Use Types Packs/Day Years Used Date Smoking Tobacco: Never Smokeless Tobacco: Never Alcohol Use Standard Drinks/Week Comments Yes 0 (1 standard drink = 0.6 oz pur e alcohol) occassional Depression Answer Date Recorded Patient Health Questionnaire-9 Score 0 07/02/2023 Patient Health Questionnaire-9 Score 0 07/02/2023 Last PHQ-9: Questionnaire Data Not on file 0 07/02/2023 Housing Stability Answer Date Recorded What is your housing situation today? I have taylor frausto 07/02/[address] you li ve. Do you have problems with any of the following? None of the above 07/02/2023 Food Insecurity Answer Date Recorded Within the past 12 months, y ou worried that your food would run out before you got money to buy more: Never True 07/02/2023 Within the past 12 months,th e food you bought just didn't last and you didn't have enough money to get more: Never True Transportation Answer Date Recorded In the past 12 months, has l ack of transportation kept you from medical appts, meetings, work or from getting things needed for daily living? Yes, it has kept me from medical appointments or getting medications. 07/02/2023 Utilities Answer Date Recorded In the past 12 months, has t he electric, gas, oil or water company threatened to shut off services in your home? No 07/02/2023 Depression Answer Date Recorded Patient Health Questionnaire-2 Score 0 07/02/2023 Sex and Gender Information Value Date Recorded Sex Assigned at Male 03/03/2022 10:25 AM EDT Legal Sex Male 10:25 AM EDT Gender Identity Male 03/03/2022 10:25 AM EDT Sexual Orientation Straight 03/03/2022 10 :25 AM EDT documented as of this encounter Plan of Treatment Upcoming Encounters Date Type Department Care Team (Late st Contact Info) Description 08/11/2024 11:15 AM EDT Office Visit [facility] [address] [place] [id number] Name, MD Jamie [address] [place] [id number] documented as of this encounter Visit Diagnoses Not on filedocumented in this encounter Additional Health Concerns Assessment Noted Time PHQ-9 Depression Total Score: 0 07/02/19 24 10:12 AM EST documented as of this encounter Care Teams Hairspring I Inspector Relationship Specialty Start Date End Date Name, MD Jamie [address] [place] [phone] PCP - General Family Medicine 10/29/15 documented as of this encounter
--- OUTSIDE RECORDS SUMMARY | 2024-06-27 13:55 | XMS_ITS | Encounter Summary ---
Author Organization [employer] Address [address] [place] [address] Care Team Providers Care Staff Accountant Name Role Phone Name, Jamie DURHAM Primary Care Provider [phone] Encounter Details Date Type Department Care Team (Late st Contact Info) Description 06/27/2024 Orders Only [facility] External Provider, [facility] Social History Tobacco Use Types Packs/Day Years [...] Description 08/11/2024 11:15 AM EDT Office Visit [facility] MEDICINE [address] [place] [address] Name, MD Jamie [address] [place] [address] documented as of this encounter Procedures Procedure Name Priority Date/Time Associated Diagnosis Comments VENOUS BLOOD GAS Routine 06/27/2024 11:5 8 AM EST PROTHROMBIN TIME-INR Routine 06/27/2024 11:37 AM EST HOLD GREEN GEL Routine 06/27/2024 11:36 AM EST HOLD GREEN GEL Routine 06/27/2024 11:36 AM EST HOLD LAVENDER - POSSIBLE HEMATOLOGY Routine 06/27/2024 11:36 AM EST HOLD LAVENDER - POSSIBLE HEMATOLOGY Routine 06/27/2024 11:36 AM EST LACTIC ACID Routine 06/27/2024 11:36 AM EST HIGH SENSITIVITY TROPONIN I Routine 06/27/2024 10:42 AM EST SARS COV2/INFLUENZA A/B AND RSV RNA QL NAAT Routine 06/27/2024 10:42 AM EST CBC WITH AUTO DIFFERENTIAL Routine 06/27/2024 10:42 AM EST B TYPE NATRIURETIC PEPTIDE (BNP) Routine 06/27/2024 10:42 AM EST HEPATIC FUNCTION PANEL Routine 06/27/2024 10:42 AM EST BASIC METABOLIC PANEL Routine 06/27/2024 10:42 AM EST XR CHEST 2 VIEWS Routine 06/27/2024 9:55 AM EST documented in this encounter Results * (ABNORMAL) VENOUS BLOOD GAS (06/27/2024 11:58 AM EST) VBG pH 7.43 7.32 - 7.43 [facility] Comment:METER #: [id number] additional_comment: CbAbliai VBG PCO2 47 mmHg [facility] Comment:METER #: [id number] additional_comment: CbAbliai VBG PO2 54 mmHg [facility] Comment:METER #: [id number] additional_comment: CbAbliai VBG Base Excess 6.3 mmol/L [facility] Comment:METER #: [id number] additional_comment: CbAbliai VBG HCO3 31(H) 22 - 26 mmol/L [facility] Comment:METER #: [id number] additional_comment: CbAbliai O2 Sat, [place] 87.0 % [facility] Comment:METER #: [id number] additional_comment: CbAbliai 06/27/2024 11:5 8 AM EST 06/27/2024 12:15 PM EST us Generic External Data Provider LAB BLOOD ORDERAB LES Final Result [facility] [address] [place] [phone] * Prothrombin Time-INR (06/27/2024 11:37 AM EST) Prothrombin Time 11.8 10.9 - 12.4 SEC [facility] INTERNATIONAL NORM RATIO 1.0 0.9 - 1.1 [facility] Comment:INTERNATIONAL NORMAL IZED RATIO (INR) REFERENCE RANGES Reference RangeFor patients not on anticoagulant therapy: 0.9 - 1.1INR ranges for oral anticoagulanttherapy:For prevention and treatment of venous thrombosis and pulmonary embolism: 2.0 - 3.0For acute myocardial infarction with aspirin therapy: 2.0 - 3.0For acute myocardial infarction without aspirin therapy: 3.0 - 4.0For patients with mechanical prosthetic heart valves: 2.5 - 3.5 06/27/2024 11:3 7 AM EST 06/27/2024 11:52 AM EST Generic External Data Provider LAB BLOOD ORDERAB LES Final Result Performing Organization Address [facility] de Phone Number [facility] [address] [place] [phone] * Lactic Acid (06/27/2024 11:36 AM EST) Lactic Acid 1.0 0.5 - 2.0 mmol/L [facility] 06/27/2024 11:3 6 AM EST 06/27/2024 11:45 AM EST Generic External Data Provider LAB BLOOD ORDERAB LES Final Result Performing Organization Address [facility] de Phone Number [facility] [address] [place] [phone] * Hold Lavender - Possible Hematology (06/27/2024 11:36 AM EST) Hold Lavender - Possible Hematololgy SEE NOTE [facility] Comment:Specimen will be hel d untested for 8 hours. Call Hematologyif testing is desired. 06/27/2024 11:3 6 AM EST 06/27/2024 12:01 PM EST Generic External Data Provider HISTORICAL/NON OR DERABLE LABS Final Result Performing Organization Address [facility] de Phone Number [facility] [address] [place] [address] [place] [phone] * Hold Green Gel (06/27/2024 11:36 AM EST) Hold Green Gel See Note [facility] Comment:Specimen held untest ed for 24 hours; Call to requestChemistry testing. 06/27/2024 11:3 6 AM EST 06/27/2024 12:01 PM EST us Generic External Data Provider HISTORICAL/NON OR DERABLE LABS Final Result Performing Organization Address [facility]/ZIP Co de Phone Number [facility] [address] [place] [address] [phone] * Hold Lavender - Possible Hematology (06/27/2024 11:36 AM EST) Hold Lavender - Possible Hematololgy SEE NOTE [facility] Comment:Specimen will be hel d untested for 8 hours. Call Hematologyif testing is desired. 06/27/2024 11:3 6 AM EST 06/27/2024 11:58 AM EST us Generic External Data Provider HISTORICAL/NON OR DERABLE LABS Final Result Performing Organization Address [facility] Co de Phone Number [facility] [address] [place] [address] [phone] * Hold Green Gel (06/27/2024 11:36 AM EST) Hold Green Gel See Note [facility] Comment:Specimen held untest ed for 24 hours; Call to requestChemistry testing. 06/27/2024 11:3 6 AM EST 06/27/2024 11:58 AM EST us Generic External Data Provider HISTORICAL/NON OR DERABLE LABS Final Result Performing Organization Address [facility]/ZIP Co de Phone Number [facility] [address] [place] [address] [phone] * High Sensitivity Troponin I (06/27/2024 10:42 AM EST) [facility] TROPONIN I HIGH SENSITIVITY 21.0 <3.5 - 35.0 ng/L [facility] Comment:The [place] high sens itivity Troponin-I results should beused in conjunction with other diagnostic information suchas ECG, clinical observations and information, and patientsymptoms to aid in the diagnosis of CT. 06/27/2024 10:4 2 AM EST 06/27/2024 10:45 AM EST Generic External Data Provider LAB BLOOD ORDERAB LES Final Result Performing Organization Address [facility] de Phone Number [facility] [address] [place] [phone] * B Type Natriuretic Peptide (BNP) (06/27/2024 10:42 AM EST) [facility] B Type Natriuretic Peptide 41 <100 pg/mL [facility] Comment:For those patients w ho are being treated with Natrecor(nesiritide, recombinant BNP), BNP testing should beperformed at least two hours post treatment in order toensure that only endogenous levels of BNP are detected. 06/27/2024 10:4 2 AM EST 06/27/2024 10:45 AM EST Generic External Data Provider LAB BLOOD ORDERAB LES Final Result Performing Organization Address [facility] de Phone Number [facility] [address] [place] [phone] * Hepatic Function Panel (06/27/2024 10:42 AM EST) [facility] Bilirubin, Total 0.2 0.0 - 1.0 mg/dL [facility] Bilirubin, Direct <0.2 0.0 - 0.5 mg/dL [facility] Aspartate Amino Transferase 28 5 - 37 U/L [facility] Alanine Aminotransferase 10 0 - 40 U/L [facility] Total Protein 6.6 6.5 - 8.0 g/dL [facility] Albumin Level 3.6 3.5 - 5.0 g/dL [facility] Alkaline Phosphatase 84 39 - 117 U/L [facility] 06/27/2024 10:4 2 AM EST 06/27/2024 10:45 AM EST Generic External Data Provider LAB BLOOD ORDERAB LES Final Result Performing Organization Address [facility] Co de Phone Number [facility] [address] [place] [phone] * (ABNORMAL) SARS-CoV-2 RNA, Influenza A/B, and RSV RNA, Ql NAAT (06/27/2024 10:42 AM EST) Influenza A PCR POSITIVE(A) Negative [facility] Influenza B PCR NEGATIVE Negative [facility] Resp Syncy Virus RNA Qual PCR NEGATIVE Negative [facility] SARS COV2 PCR NEGATIVE Negative [facility] Comment:All test results mus t be correlated with clinical findings.Negative results do not preclude SARS-CoV2, influenza Avirus, influenza B virus and/or RSV infectionand should not be used as the sole basis for treatment orother patient management decisions. Negative results must becombined with clinical observations, patient history, andepidemiological information.This test has not been evaluated for monitoring treatment ofinfection.This test has been authorized by the FDA under an EmergencyUse Authorization (EUA) for use by authorized laboratories.Testing performed on the [employer] GeneXpert utilizingreal-time RT-PCR.All SARS CoV2 and positive influenza A/B results arereported to [facility]. 06/27/2024 10:4 2 AM EST 06/27/2024 10:45 AM EST Generic External Data Provider LAB MICROBIOLOGY - GENERAL ORDERABLES Final Result Performing Organization Address [facility] Co de Phone Number [facility] [address] [place] [phone] * (ABNORMAL) Basic Metabolic Panel (06/27/2024 10:42 AM EST) Sodium 140 135 - 145 mmol/L [facility] Potassium 4.6 3.3 - 5.1 mmol/L [facility] Chloride 104 96 - 108 mmol/L [facility] Carbon Dioxide 31(H) 22 - 29 mmol/L [facility] Anion Gap 10(L) 12 - 20 [facility] Urea Nitrogen (BUN) 25(H) 9 - 16 mg/dL [facility] Creatinine, Serum 0.71 0.5 - 1.4 mg/dL [facility] Creatinine Clr Calc Pharmacy 41.8 [facility] Comment:eGFR (calculated fro m the MDRD study equation) and eCrCl(calculated from the Cockcroft-Gault equation) are based ondifferent parameters and may not yield comparable results.If eCrCl result is absurd, please check patient'sheight/weight. Estimated Glomerular Filt Rate >60 [facility] Comment:Chronic Kidney Disea se: Estimated GFR < 60 mL/min/1.87q8Fnnrgg Kidney Disease: Estimated GFR < 15 mL/min/1.73m2 Glucose 100 60 - 115 mg/dL [facility] Calcium 8.5 8.4 - 10.2 mg/dL [facility] 06/27/2024 10:4 2 AM EST 06/27/2024 10:45 AM EST us Generic External Data Provider LAB BLOOD ORDERAB LES Final Result [facility] [address] [place] [address] [phone] * (ABNORMAL) CBC auto differential (06/27/2024 10:42 AM EST) White Blood Count 3.2(L) 4.8 - 10.8 X10*3/uL [facility] Red Blood Count 4.31(L) 4.60 - 5.80 X10*6/uL [facility] Hemoglobin 13.7(L) 14.0 - 18.0 g/dl [facility] Hematocrit 42.1 42.0 - 52.0 % [facility] Mean Corpuscular Volume 97.7 80.0 - 98.0 fL [facility] Mean Corpuscular Hemoglobin 31.8 27.0 - 33.0 pg [facility] Mean Corpuscular HGB Conc 32.5 31.0 - 36.0 g/dl [facility] Red Cell Distribution Width 12.6 11.0 - 16.0 % [facility] Platelet Count 102(L) 160 - 400 X10*3/uL [facility] Comment:Test was verified by repeat analysis. Mean Platelet Volume 9.9 9.4 - 12.4 fL [facility] Neutrophils Percent Auto 65.1 45 - 73 % [facility] Imm Gran Pct Auto 0.6(H) 0.0 - 0.4 % [facility] Lymphocytes Percent Auto 23.5 20 - 40 % [facility] Monocytes Percent Auto 10.5 2 - 11 % [facility] Eosinophils Percent Auto 0.0 0 - 4 % [facility] Basophils Percent Auto 0.3 0 - 2 % [facility] NRBC Pct Auto 0.0 0.0 - 0.2 /100WBC [facility] Neutrophils Absolute Auto 2.1 2.0 - 8.3 x10*3/uL [facility] Imm Gran Abs Auto 0.02 0.00 - 0.03 X10*3/uL [facility] Lymphocytes Absolute Auto 0.8(L) 1.2 - 4.9 X10*3/uL [facility] Monocytes Absolute Auto 0.3 0.1 - 1.2 X10*3/uL [facility] Eosinophils Absolute Auto 0.0 0.0 - 0.4 X10*3/uL [facility] Basophils Absolute Auto 0.0 0.0 - 0.2 X10*3/uL [facility] NRBC Abs Auto 0.000 0.0 - 0.012 X10*3/uL [facility] 06/27/2024 10:4 2 AM EST 06/27/2024 10:45 AM EST us Generic External Data Provider LAB BLOOD ORDERAB LES Final Result [facility] [address] [place] [address] [phone] * XR Chest 2 Views (06/27/2024 9:55 AM EST) Anatomical Region Laterality Modality Chest Radiographic Iliana ging 06/27/2024 9:55 AM EST Narrative 06/27/2024 11:05 AM EST ? [facility] ?[address] ?[place] [address] ?XRay Report ? Signed ? Patient: Christopher,Ifeanyi A ?MR#: [id number] ?? [id number] ? : 1950 ?Acct:[id number] ? Age/Sex: 73 / M ?ADM Date: 06/27/24 ? Loc: HO.ED ? Attending Dr: ? Ordering Physician: Angy Abbott DO ?? Date of Service: 06/27/24 ?? Procedure(s): XR chest 2V ?? Accession Number(s): [id number] ? cc: Angy Abbott DO; Name,Jamie DURHAM ? EXAMINATION: ??XR CHEST 2 VIEWS ? HISTORY: cough ? COMPARISON: Comparison is made with the prior examination dated ?? 06/03/2023. ? FINDINGS: ??PA and lateral views of the chest are submitted. There are ?? low lung volumes. There is opacification of the left lung base, ?? consistent with atelectasis or pneumonia. The right lung is grossly ?? clear. ??There is no pleural effusion, pneumothorax, or pulmonary ?? vascular congestion. ??The heart is normal in size. ??There is severe ?? dextroscoliosis of the spine. ? XR/XR chest 2V ?? IMPRESSION: ?? Low lung volumes. Left lower lobe atelectasis versus pneumonia. ? Electronically signed by: ??Kaiser Muller MD ??06/27/2024 11:02 AM EST ?? RP ? Dictated By: ?Kaiser Muller MD ? Signed By: ?<Electronically signed by Kaiser Muller MD in OV> ?06/27/24 1102 ? DD/ 0955 ? TD/TT: 06/27/24 1059 ? Medical Office Clerk: ? Procedure Note [place], [place] - 06/27/[address] [address] XRay Report Signed Patient: Ifeanyi White AMR#: [id number] : 1950cct:[id number] Age/Sex: 73 / MADM Date: 06/27/24 Loc: HO.ED Attending Dr: Ordering Physician: Angy Abbott DO Date of Service: 06/27/24 Procedure(s): XR chest 2V Accession Number(s): [id number] cc: Angy Abbott DO; Name,Jamie DURHAM EXAMINATION: XR CHEST 2 VIEWS HISTORY: cough COMPARISON: Comparison is made with the prior examination dated 06/03/2023. FINDINGS: PA and lateral views of the chest are submitted. There are low lung volumes. There is opacification of the left lung base, consistent with atelectasis or pneumonia. The right lung is grossly clear. There is no pleural effusion, pneumothorax, or pulmonary vascular congestion. The heart is normal in size. There is severe dextroscoliosis of the spine. XR/XR chest 2V IMPRESSION: Low lung volumes. Left lower lobe atelectasis versus pneumonia. Electronically signed by: Kaiser Muller MD 06/27/2024 11:02 AM EST Dictated By: Kaiser Muller MD Signed By: <Electronically signed by Kaiser Muller MD in OV> 06/27/24 1102 DD/ 0955 TD/TT: 06/27/24 1059 Medical Office Clerk: [facility] External Provider IMG XR PROCEDURES Final Result documented in this encounter Visit Diagnoses Not on filedocumented in this encounter Additional Health Concerns Assessment Noted Time PHQ-9 Depression Total Score: 0 07/02/19 10:12 AM EST documented as of this encounter Care Teams Staff Accountant Relationship Specialty Start Date End Date Name, MD Jamie [address] [place] [address] PCP - General Family Medicine 10/29/15 documented as of this encounter
--- OUTSIDE RECORDS SUMMARY | 2024-06-27 13:55 | XMS_ITS | Encounter Summary ---
Author Organization [employer] Address [address] [place] [address] Care Team Providers Care Refrigerator Glazier Name Role Phone Name, Jamie DURHAM Primary Care Provider [phone] Reason for Visit * Reason Comments Med Refill Encounter Details Date Type Department Care Team ([facility] st Contact Info) Description 06/08/2024 Refill [facility] MEDICINE [address] [place], [place] [phone] Name, MD Jamie [address] [place] [address] Social History Tobacco Use Types Packs/Day Years [...] Description 08/11/2024 11:15 AM EDT Office Visit [facility] MEDICINE [address] [place] [phone] NameJamie MD [address] [place] [phone] documented as of this encounter Visit Diagnoses Not on filedocumented in this encounter Additional Health Concerns Assessment Noted Time PHQ-9 Depression Total Score: 0 07/02/19 24 10:12 AM EST documented as of this encounter Care Teams Refrigerator Glazier Relationship Specialty Start Date End Date Name, MD Jamie [address] [place] [phone] PCP - General Family Medicine 10/29/15 documented as of this encounter
--- OUTSIDE RECORDS SUMMARY | 2024-06-27 13:55 | XMS_ITS | Encounter Summary ---
Author Organization [employer] Address [address] [facility] [address] [place] [address] Care Team Providers Care Scribing Machine Operator Name Role Phone Name, Jamie DURHAM Primary Care Provider [phone] Encounter Details Date Type Department Care Team (Latest Contact Info) Description 08/24/2018 Abstract [facility] CONVERSIONS Dental, Provider, DDS Social History Tobacco Use Types Packs/Day Years Used Date Smoking Tobacco: Never Assessed Sex and Gender Information Value Date Recorded Sex Assigned at Male 03/03/2022 10:25 AM EDT Legal Sex Male 10:25 AM EDT Gender Identity Male 03/03/2022 10:25 AM EDT Sexual Orientation Straight 03/03/2022 10 :25 AM EDT documented as of this encounter Plan of Treatment Upcoming Encounters Date Type Department Care Team (Late st Contact Info) Description 08/11/2024 11:15 AM EDT Office Visit [facility] MEDICINE [address] [place] [address] NameJamie MD [address] [place] [address] documented as of this encounter Visit Diagnoses Not on filedocumented in this encounter Care Teams Scribing Machine Operator Relationship Specialty Start Date End Date NameJamie MD [address] [place] [address] PCP - General Family Medicine 10/29/15 documented as of this encounter
--- OUTSIDE RECORDS SUMMARY | 2024-06-27 13:55 | XMS_ITS | Encounter Summary ---
Author Organization [employer] Address [address] [facility] [address] [place] [address] Care Team Providers Care Maintenance Controller Name Role Phone Name, Jamie DURHAM Primary Care Provider [phone] Reason for Visit * Reason Comments Med Refill Encounter Details Date Type Department Care Team ([facility] st Contact Info) Description 10/12/2023 Refill [facility] MEDICINE [address] [place], [place] [phone] Name, MD Jamie [address] [place] [address] Social History Tobacco Use Types Packs/Day Years [...] Description 08/11/2024 11:15 AM EDT Office Visit [facility] MEDICINE [address] [place] [phone] NameJamie MD [address] [place] [phone] documented as of this encounter Visit Diagnoses Not on filedocumented in this encounter Additional Health Concerns Assessment Noted Time PHQ-9 Depression Total Score: 0 07/02/19 24 10:12 AM EST documented as of this encounter Care Teams Maintenance Controller Relationship Specialty Start Date End Date Name, MD Jamie [address] [place] [phone] PCP - General Family Medicine 10/29/15 documented as of this encounter
--- OUTSIDE RECORDS SUMMARY | 2024-06-27 13:55 | XMS_ITS | Encounter Summary ---
Author Organization [employer] Address [address] [facility] [address] [place] [address] Care Team Providers Care Customer Service Consultant Name Role Phone Name, Jamie DURHAM Primary Care Provider [phone] Reason for Visit * Reason Comments Med Refill Encounter Details Date Type Department Care Team ([facility] st Contact Info) Description 08/10/2023 Refill [facility] MEDICINE [address] [place], [place] [phone] Name, MD Jamie [address] [place] [address] Social History Tobacco Use Types Packs/Day Years [...] Description 08/11/2024 11:15 AM EDT Office Visit [facility] MEDICINE [address] [place] [phone] NameJamie MD [address] [place] [phone] documented as of this encounter Visit Diagnoses Not on filedocumented in this encounter Additional Health Concerns Assessment Noted Time PHQ-9 Depression Total Score: 0 07/02/19 24 10:12 AM EST documented as of this encounter Care Teams Customer Service Consultant Relationship Specialty Start Date End Date Name, MD Jamie [address] [place] [phone] PCP - General Family Medicine 10/29/15 documented as of this encounter
--- OUTSIDE RECORDS SUMMARY | 2024-06-27 13:55 | XMS_ITS | Clinical Summary ---
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 2 Active ketotifen (Zaditor) 0.025 % ophthalmic solution INSTILL 1 DROP IN BOTH EYES TWICE DAILY NEEDED 2 Active latanoprost (Xalatan) 0.005 % ophthalmic solution PLACE 1 DROP BOTH EYES AT BEDTIME 2 Active hydrocortisone (Proctosol HC) 2.5 % rectal cream Insert into the rectum 2 times daily. 28 g 2 3 Active cefuroxime (Ceftin) 500 MG tablet Take 500 mg by mouth 2 times daily. 4 Active furosemide (Lasix) 40 MG tablet Take 40 mg by mouth Once per day. Active tamsulosin (Flomax) 0.4 MG 24 hr capsule TAKE 2 CAPSULES BY MOUTH EVERY DAY 30 MINUTES AFTER THE SAME MEAL 180 capsule 1 4 Active atorvastatin (Lipitor) 20 MG tabletIndication s:Scrotal pain,Hydrocele in adult TAKE 1 TABLET(20 MG) BY MOUTH IN THE MORNING 90 tablet 4 Active naproxen (Naprosyn) 500 MG tabletIndication s:Back pain, unspecified back location, unspecified back pain laterality, unspecified chronicity TAKE 1 TABLET BY MOUTH TWICE DAILY WITH FOOD 60 tablet 3 4 Active gabapentin (Neurontin) 300 MG capsule TAKE 1 CAPSULE(300 MG) BY MOUTH THREE TIMES DAILY 84 capsule 2 4 Active losartan (Cozaar) 50 MG tablet Take 1 tablet (50 mg) by mouth Once per day. 30 tablet 11 4 04/06/20 25 Active Blood Pressure kit 1 each 2 times daily. 1 kit 4 06/02/19 25 Active Problems Problem Noted Date Diagnosed Date Hyponatremia 09/15/2023 Acute retention of urine 09/15/2023 CHF (congestive heart failure) 07/02/2023 Overview (12/16/2023): ? Diastolic He collado normal EF on numerous ECHOs Hydrocele, bilateral 07/02/2023 Renal mass of unknown nature 07/02/2023 Adrenal adenoma, left 07/02/2023 Overview (07/02/2023): 1.5 left adrenal incidentiloma (found on CT ordered by urology for renal stones). Blood work normal including screening for subclinical Emil and 24 urine metanephrines. His MRI was inconclusive since the patient has severe scoliosis and imaging did not allow for adrenal evaluation. 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 Raised prostate specific antigen 06/02/2017 Hearing aid worn 12/03/2015 Short stature disorder 12/03/2015 Hearing problem 09/06/2013 Cervical spinal stenosis 03/18/2012 Scoliosis 09/24/2009 Resolved Problems Problem Noted Date Diagnosed Date Resolved Date Acute epididymitis 09/15/2023 Cellulitis of scrotum 09/15/20232023 Deep right inguinal pain 07/02/2023 Dysuria 06/02/2017 03/13/2023 Microscopic hematuria 06/02/20172023 Mean red blood cell volume increased 03/02/2017 07/02/2023 Diverticulitis of sigmoid colon 09/10/2016 09/15/2023 Overview (03/13/2023): One episode uncomplicated at [facility] 09/2016 Normal colonoscopy the same year Repeat colonoscopy recommended in 10 years Cervical radiculitis 03/18/2012 024 Neck pain 03/18/2012 03/13/2023 Low back pain 09/24/2009 07/02/2023 Groin pain 09/24/2009 03/13/2023 Neuropathic pain syndrome (non-herpetic) 09/24/2009 03/13/2023 Encounters Date Type Department Care Team Description 06/27/2024 Orders Only [facility] External Provider, [facility] 06/08/2024 Refill [facility] [address] [place] [phone] Jamie Garcia MD 04/26/2024 Telephone [facility] [address] [place] [address] [phone] Jamie Garcia MD No Show 04/24/2024 Refill [facility] [address] [place] [address] [phone] Jamie Garcia MD Essential hypertension; Hyponatremia; Back pain, unspecified back location, unspecified back pain laterality, unspecified chronicity 04/06/2024 11:00 AM EST Office Visit [facility] [address] [place] [address] [phone] Jamie Garcia MD Essential hypertension (Primary Dx); Hyponatremia; Vaccine refused by patient; Healthcare maintenance 04/01/2024 Refill [facility] [address] [place] [address] [phone] Jamie Garcia MD 03/30/2024 Telephone [facility] [address] [place] [address] [phone] Courtney Murphy MA Chart Prep from Last 3 Months Immunizations Name Administration Dates Next Due Influenza, High Dose Seasonal, Preservative Free 02/17/2018 Pfizer Covid-19 Vaccine 12+ 06/14/2021, Pneumococcal Conjugate PCV 13 02/05/2016 Pneumococcal Polysaccharide PPSV23 02/17/2018 Tdap 02/05/2016 Social History Tobacco Use Types Packs/Day Years Used Date Smoking Tobacco: Never Smokeless Tobacco: Never Tobacco Cessation:Counseling Given: Not Answered Alcohol Use Standard Drinks/Week Comments Yes 0 [...] Orientation Straight 03/03/2022 10 :25 AM EDT Last Filed Vital Signs Vital Sign Reading Time Taken Comments Blood Pressure 161/81 04/06/2024 11:07 AM EST Pulse 80 04/06/2024 11:07 AM EST Temperature 34.8 ??C (94.6 ??F) 04/06/2024 11:[address] Respiratory Rate 12 04/06/2024 11:07 AM EST Oxygen Saturation 95% 04/06/2024 11:07 AM EST Inhaled Oxygen Concentration - - Weight 42.9 kg (94 lb 9.6 oz) 04/06/2024 11:07 A M EST Height 127 cm (4' 2 ) 04/06/2024 11:07 AM EST Body Mass Index 26.6 04/06/2024 11:07 AM EST Plan of Treatment Upcoming Encounters Date Type Department Care Team (Late st Contact Info) Description 08/11/2024 11:15 AM EDT Office Visit [facility] [address], [place] [phone] Name, MD Jamie [address] [place] [address] Health Maintenance Due Date Last Done Comments CT Colonography 1950 FIT DNA/Cologuard 1950 FIT 1950 FOBT 1950 Sigmoidoscopy 1950 Alcohol/Substance Use Screening 1962 Hepatitis C Screening 1968 Zoster Vaccines (1 of 2) 2000 RSV Patients and Patients Aged 60 years or older (1 - Risk 60-74 years 1-dose series) 2010 COVID-19 Vaccine (3 - 2023-2 5 season) 2024 06/14/2021, 05/24/2021 Influenza Vaccine (#1) 2024 02/17/2018 Depression Screening 07/01/2024 07/02/2023, 07/02/2023 SDOH Screening 07/01/2024 07/02/2023 Tobacco Screening 04/06/2025 04/06/2024 DTaP/Tdap/Td Vaccines (2 - T d or Tdap) 02/04/2026 02/05/2016 Colonoscopy 11/17/2026 11/17/2016, 11/07/2016 Colorectal Cancer Screening 11/17/2026 Lipid Panel 04/11/2027 04/11/2022, 01/12/2020 Pneumococcal Vaccine: 50+ Years Completed 02/17/2018, 02/05/2016 HIB Vaccines Aged Out No longer eligi ble based on patient's age to complete this topic HPV Vaccines Aged Out No longer eligi ble based on patient's age to complete this topic Hepatitis A Vaccines Aged Out No long er eligible based on patient's age to complete this topic Hepatitis B Vaccines Aged Out No long er eligible based on patient's age to complete this topic IPV Vaccines Aged Out No longer eligi ble based on patient's age to complete this topic Meningococcal Vaccine Aged Out No jose gael eligible based on patient's age to complete this topic RSV under 20 months Aged Out No longe r eligible based on patient's age to complete this topic Rotavirus Vaccines Aged Out No longer eligible based on patient's age to complete this topic Procedures Procedure Name Priority Date/Time Associated Diagnosis Comments VENOUS BLOOD GAS Routine 06/27/2024 11:5 8 AM EST PROTHROMBIN TIME-INR Routine 06/27/2024 11:37 AM EST HOLD LAVENDER - POSSIBLE HEMATOLOGY Routine 06/27/2024 11:36 AM EST HOLD GREEN GEL Routine 06/27/2024 11:36 AM EST HOLD LAVENDER - POSSIBLE HEMATOLOGY Routine 06/27/2024 11:36 AM EST HOLD GREEN GEL Routine 06/27/2024 11:36 AM EST LACTIC ACID Routine 06/27/2024 11:36 AM EST HIGH SENSITIVITY TROPONIN I Routine 06/27/2024 10:42 AM EST B TYPE NATRIURETIC PEPTIDE (BNP) Routine 06/27/2024 10:42 AM EST HEPATIC FUNCTION PANEL Routine 06/27/2024 10:42 AM EST BASIC METABOLIC PANEL Routine 06/27/2024 10:42 AM EST CBC WITH AUTO DIFFERENTIAL Routine 06/27/2024 10:42 AM EST SARS COV2/INFLUENZA A/B AND RSV RNA QL NAAT Routine 06/27/2024 10:42 AM EST XR CHEST 2 VIEWS Routine 06/27/2024 9:55 AM EST BASIC METABOLIC PANEL Routine 04/11/2024 9:13 AM EST Essential hypertension Hyponatremia LIPID PANEL, STANDARD Routine 04/11/2022 9:26 AM EST Essential hypertension HM COLONOSCOPY Routine 11/17/2016 12:06 PM EDT from Last 3 Months or Most Recently Relevant to Health Maintenance Results * (ABNORMAL) VENOUS BLOOD GAS (06/27/2024 11:58 AM EST) VBG pH 7.43 7.32 - 7.43 [facility] Comment:METER #: [id number] additional_comment: CbAbliai VBG PCO2 47 mmHg [facility] Comment:METER #: [id number] additional_comment: CbAbliai VBG PO2 54 mmHg [facility] Comment:METER #: [id number] additional_comment: CbAbliai VBG Base Excess 6.3 mmol/L [facility] Comment:METER #: [id number] additional_comment: CbAbliai VBG HCO3 31(H) 22 - 26 mmol/L [facility] Comment:METER #: [id number] additional_comment: CbAbliai O2 Sat, [place] 87.0 % [facility] Comment:METER #: [id number] additional_comment: CbAbliai 06/27/2024 11:5 8 AM EST 06/27/2024 12:15 PM EST us Generic External Data Provider LAB BLOOD ORDERAB LES Final Result [facility] [address] [place] [address] [phone] * Prothrombin Time-INR (06/27/2024 11:37 AM EST) Prothrombin Time 11.8 10.9 - 12.4 SEC [facility] INTERNATIONAL NORM RATIO 1.0 0.9 - 1.1 [facility] Comment:INTERNATIONAL NORMAL IZED RATIO (INR) [...] 7 AM EST 06/27/2024 11:52 AM EST us Generic External Data Provider LAB BLOOD ORDERAB LES Final Result Performing Organization Address City/[facility]/ZIP Co de Phone Number [facility] [address] [place] [address] [phone] * Hold Green Gel (06/27/2024 11:36 AM EST) Only the most recent of2 resultswithin the time period is included. Hold Green Gel See Note [facility] Comment:Specimen held untest ed for 24 hours; Call to requestChemistry testing. 06/27/2024 11:3 6 AM EST 06/27/2024 12:01 PM EST us Generic External Data Provider HISTORICAL/NON OR DERABLE LABS Final Result Performing Organization Address City/[facility]/ZIP Co de Phone Number [facility] [address] [place] [address] [phone] * Hold Lavender - Possible Hematology (06/27/2024 11:36 AM EST) Only the most recent of2 resultswithin the time period is included. Hold Lavender - Possible Hematololgy SEE NOTE [facility] Comment:Specimen will be hel d untested for 8 hours. Call Hematologyif testing is desired. 06/27/2024 11:3 6 AM EST 06/27/2024 12:01 PM EST Generic External Data Provider HISTORICAL/NON OR DERABLE LABS Final Result Performing Organization Address [facility] Co de Phone Number [facility] [address] [place] [address] [phone] * Lactic Acid (06/27/2024 11:36 AM EST) Lactic Acid 1.0 0.5 - 2.0 mmol/L [facility] 06/27/2024 11:3 6 AM EST 06/27/2024 11:45 AM EST Generic External Data Provider LAB BLOOD ORDERAB LES Final Result Performing Organization Address [facility] Phone Number [facility] [address] [place] [address] [phone] * High Sensitivity Troponin I (06/27/2024 10:42 AM EST) TROPONIN I HIGH SENSITIVITY 21.0 <3.5 - 35.0 ng/L [facility] Comment:The [place] high sens itivity Troponin-I results should beused in conjunction with other diagnostic information suchas ECG, clinical observations and information, and patientsymptoms to aid in the diagnosis of IA. 06/27/2024 10:4 2 AM EST 06/27/2024 10:45 AM EST Generic External Data Provider LAB BLOOD ORDERAB LES Final Result Performing Organization Address [facility] Co de Phone Number [facility] [address] [place] [address] [phone] * (ABNORMAL) SARS-CoV-2 RNA, Influenza A/B, and RSV RNA, Ql NAAT (06/27/2024 10:42 AM EST) Pathologist [facility] Influenza A PCR POSITIVE(A) Negative [facility] Influenza B PCR NEGATIVE Negative [facility] Resp Syncy Virus RNA Qual PCR NEGATIVE Negative [facility] SARS COV2 PCR NEGATIVE Negative [facility] Comment:All test results mus t [...] use by authorized laboratories.Testing performed on the [facility] GeneXpert utilizingreal-time RT-PCR.All SARS CoV2 and positive influenza A/B results arereported to [facility]. 06/27/2024 10:4 2 AM EST 06/27/2024 10:45 AM EST us Generic External Data Provider LAB MICROBIOLOGY - GENERAL ORDERABLES Final Result [facility] [address] [place] [address] [phone] * (ABNORMAL) CBC auto differential (06/27/2024 10:42 AM EST) [facility] White Blood Count 3.2(L) 4.8 - 10.8 X10*3/uL [facility] Red Blood Count 4.31(L) 4.60 - 5.80 X10*6/uL [facility] Hemoglobin 13.7(L) 14.0 - 18.0 g/dl [facility] Hematocrit 42.1 42.0 - 52.0 % [facility] Mean Corpuscular Volume 97.7 80.0 - 98.0 fL [facility] Mean Corpuscular Hemoglobin 31.8 27.0 - 33.0 pg [facility] Mean Corpuscular HGB Conc 32.5 31.0 - 36.0 g/dl [facility] Red Cell Distribution Width 12.6 11.0 - 16.0 % [facility] Platelet Count 102(L) 160 - 400 X10*3/uL [facility] Comment:Test was verified by repeat analysis. Mean Platelet Volume 9.9 9.4 - 12.4 fL [facility] Neutrophils Percent Auto 65.1 45 - 73 % [facility] Imm Gran Pct Auto 0.6(H) 0.0 - 0.4 % [facility] Lymphocytes Percent Auto 23.5 20 - 40 % [facility] Monocytes Percent Auto 10.5 2 - 11 % [facility] Eosinophils Percent Auto 0.0 0 - 4 % [facility] Basophils Percent Auto 0.3 0 - 2 % [facility] NRBC Pct Auto 0.0 0.0 - 0.2 /100WBC [facility] Neutrophils Absolute Auto 2.1 2.0 - 8.3 x10*3/uL [facility] Imm Gran Abs Auto 0.02 0.00 - 0.03 X10*3/uL [facility] Lymphocytes Absolute Auto 0.8(L) 1.2 - 4.9 X10*3/uL [facility] Monocytes Absolute Auto 0.3 0.1 - 1.2 X10*3/uL [facility] Eosinophils Absolute Auto 0.0 0.0 - 0.4 X10*3/uL [facility] Basophils Absolute Auto 0.0 0.0 - 0.2 X10*3/uL [facility] NRBC Abs Auto 0.000 0.0 - 0.012 X10*3/uL [facility] 06/27/2024 10:4 2 AM EST 06/27/2024 10:45 AM EST us Generic External Data Provider LAB BLOOD ORDERAB LES Final Result [facility] [address] [place] [phone] * B Type Natriuretic Peptide (BNP) (06/27/2024 10:42 AM EST) B Type Natriuretic Peptide 41 <100 pg/mL [facility] Comment:For those patients w ho are being treated with Natrecor(nesiritide, recombinant BNP), BNP testing should beperformed at least two hours post treatment in order toensure that only endogenous levels of BNP are detected. 06/27/2024 10:4 2 AM EST 06/27/2024 10:45 AM EST Generic External Data Provider LAB BLOOD ORDERAB LES Final Result Performing Organization Address [facility] Co de Phone Number [facility] [address] [place] [address] [phone] * Hepatic Function Panel (06/27/2024 10:42 AM EST) Bilirubin, Total 0.2 0.0 - 1.0 mg/dL [facility] Bilirubin, Direct <0.2 0.0 - 0.5 mg/dL [facility] Aspartate Amino Transferase 28 5 - 37 U/L [facility] Alanine Aminotransferase 10 0 - 40 U/L [facility] Total Protein 6.6 6.5 - 8.0 g/dL [facility] Albumin Level 3.6 3.5 - 5.0 g/dL [facility] Alkaline Phosphatase 84 39 - 117 U/L [facility] 06/27/2024 10:4 2 AM EST 06/27/2024 10:45 AM EST [employer] External Data Provider LAB BLOOD ORDERAB LES Final Result Performing Organization Address [facility] de Phone Number [facility] [address] [place] [address] [phone] * (ABNORMAL) Basic Metabolic Panel (06/27/2024 10:42 AM EST) Only the most recent of2 resultswithin the time period is included. Sodium 140 135 - 145 mmol/L [facility] Potassium 4.6 3.3 - 5.1 mmol/L [facility] Chloride 104 96 - 108 mmol/L [facility] Carbon Dioxide 31(H) 22 - 29 mmol/L [facility] Anion Gap 10(L) 12 - 20 [facility] Urea Nitrogen (BUN) 25(H) 9 - 16 mg/dL [facility] Creatinine, Serum 0.71 0.5 - 1.4 mg/dL [facility] Creatinine Clr Calc Pharmacy 41.8 [facility] Comment:eGFR (calculated fro m the MDRD study equation) and eCrCl(calculated from the Cockcroft-Gault equation) are based ondifferent parameters and may not yield comparable results.If eCrCl result is absurd, please check patient'sheight/weight. Estimated Glomerular Filt Rate >60 [facility] Comment:Chronic Kidney Disea se: Estimated GFR < 60 mL/min/1.31t5Wripmf Kidney Disease: Estimated GFR < 15 mL/min/1.73m2 Glucose 100 60 - 115 mg/dL [facility] Calcium 8.5 8.4 - 10.2 mg/dL [facility] 06/27/2024 10:4 2 AM EST 06/27/2024 10:45 AM EST us Generic External Data Provider LAB BLOOD ORDERAB LES Final Result Performing Organization Address City/State/[facility] Co de Phone Number [facility] [address] [place] [address] [phone] * XR Chest 2 Views (06/27/2024 9:55 AM EST) Anatomical Region Laterality Modality Chest Radiographic Iliana ging 06/27/2024 9:55 AM EST Narrative 06/27/2024 11:05 AM EST ? [facility] ?[address] ?[place] [address] ?XRay Report ? Signed ? Patient: Christopher,Ifeanyi A ?MR#: [id number] ?? [id number] ? : 1950 ?Acct:[id number] ? Age/Sex: 73 / M ?ADM Date: 02/24/25 ? Loc: HO.ED ? Attending Dr: ? Ordering Physician: Angy Abbott DO ?? Date of Service: 06/27/24 ?? Procedure(s): XR chest 2V ?? Accession Number(s): [id number] ? cc: Angy Abbott DO; Name,Jamie DURHAM [...] DD/ 0955 ? TD/TT: 06/27/24 1059 ? Rotating Equipment Specialist: ? Procedure Note Chino Zayas - 06/27/[address] [address] XRay Report Signed Patient: Ifeanyi White AMR#: [id number] : 1950cct:[id number] Age/Sex: 73 / MADM Date: 06/27/24 Loc: HO.ED Attending Dr: Ordering Physician: Angy Abbott DO Date of Service: 06/27/24 Procedure(s): XR chest 2V Accession Number(s): [id number] cc: Angy Abbott DO; Name,Jamie DURHAM EXAMINATION: [...] Kaiser Muller MD 06/27/2024 11:02 AM EST RP Dictated By: Kaiser Muller MD Signed By: <Electronically signed by Kaiser Muller MD in OV> 06/27/24 1102 DD/ 0955 TD/TT: 06/27/24 1059 Rotating Equipment Specialist: [facility] External Provider IMG XR PROCEDURES Final Result * Lipid Panel, Standard (04/11/2022 9:26 AM EST) Cholesterol, Total 149 <200 mg/dL [facility] HDL Cholesterol 86 > OR = 40 mg/dL [facility] Triglycerides 54 <150 mg/dL [facility] LDL Cholesterol 50 mg/dL (calc) [facility] Comment: Reference range: <100 Desirable range <100 mg/dL for primary prevention; ?? <70 mg/dL for patients with CHD or diabetic patients with > or = 2 CHD risk factors. LDL-C is now calculated using the Fredy-Ann Marie calculation, which is a validated novel method providing better accuracy than the Friedewald equation in the estimation of LDL-C. Fredy SS et al. JEAN. 2013;310(19): 7205-7955 (http://education.[employer]/faq/ZBC736) Chol/HDLC Ratio 1.7 <5.0 (calc) [facility] Non-HDL Cholesterol 63 <130 mg/dL (calc) [facility] Comment: For patients with diabetes plus 1 major ASCVD risk factor, treating to a non-HDL-C goal of <100 mg/dL (LDL-C of <70 mg/dL) is considered a therapeutic option. Blood Venous blood specimen / Unknown 04/11/2022 9:26 AM EST 04/11/2022 9:26 AM EST Narrative [facility] - 04/11/2022 9:46 PM EST FASTING:YES FASTING: YES Jamie Name LAB BLOOD ORDERABLES Final Resul t [facility] [address], [place] [address] [facility] [address], [place] [address] * Colonoscopy (11/17/2016 12:06 PM EDT) Colonoscopy Normal Normal Narrative Cece, Maria Esther - 11/17/2016 12:06 PM EDT Recommended 10 years follow up Historical Provider HEALTH MAINTENANCE Final Result from Last 3 Months or Most Recently Relevant to Health Maintenance Insurance - [employer] Care Teams Fiberglass Finisher Relationship Specialty Start Date End Date Name, MD Jamie [address] [place] [address] PCP - General Family Medicine 10/29/15
--- OUTSIDE RECORDS SUMMARY | 2024-06-27 13:55 | XMS_ITS | Encounter Summary ---
Author Organization [employer] [facility] Address [address] [place] [address] Care Team Providers Care Accident Report Clerk Name Role Phone Name, Jamie DURHAM Primary Care Provider [phone] Encounter Details Date Type Department Care Team (Late st Contact Info) Description 10/03/2022 Abstract [facility] [address] [place] [phone] NameJamie MD [address] [place] [address] [phone] Social History Tobacco Use Types Packs/Day Years Used Date Smoking Tobacco: Never Smokeless Tobacco: Never Depression Answer Date Recorded Patient Health Questionnaire-2 [...] Description 08/11/2024 11:15 AM EDT Office Visit [facility] [address] [place] [address] [phone] Name, MD Jamie [address] [place] [address] [phone] documented as of this encounter Procedures Procedure Name Priority Date/Time Associated Diagnosis Comments COLONOSCOPY Routine 11/17/2016 12:06 PM EDT documented in this encounter Results * Hm Colonoscopy (11/17/2016 12:06 PM EDT) Colonoscopy Normal Normal Narrative Maria Esther Zhao - 11/17/2016 12:06 PM EDT Recommended 10 years follow up us Historical Provider HEALTH MAINTENANCE Final Result documented in this encounter Visit Diagnoses Not on filedocumented in this encounter Care Teams Accident Report Clerk Relationship Specialty Start Date End Date Name, MD Jamie [address] [place] [phone] PCP - General Family Medicine 10/29/15 documented as of this encounter
[2024-06-27] MEDS: Azithromycin 500 MG in 0.9 % Sodium Chloride 250 ML 125 MG IV (14:35)
--- NOTE | 2024-06-27 15:04 | PM.IMHP ---
History of Present Illness Date of Service: 06/27/24 Chief Complaint: Cough This is a 73-year-old male,unspecified chf, congenital vs acquired pectus carinatum, bph, chronic bilateral hydroceles self catheterization, who presents emergency department with complaints of cough, congestion for the last 3 days. Patient also reports some chest pain with coughing only. He denies any recent travel, surgery, or hospitalizations. No history of blood clots. He is not on anticoagulation. He states that he has been coughing up blood, denies history of similar symptoms. He denies smoking history. He has no history of asthma or COPD. Patient reports positive sick exposure at home. He was born in the [place]. He is up-to-date with all his immunizations. Denies history of incarceration, or homelessness. Denies any fevers, chills, palpitations, abdominal pain, nausea, vomiting or diarrhea. No bloody or black stool. No other complaints or concerns at this time. MD elicited complaint: cough and nasal congestion 73-year-old man presenting with complaints of shortness of breath and congestion over the last 3 days with cough. He denied any fever, chills, nausea, vomiting, diarrhea, recent travel, sick contacts he reported some mild hemoptysis with sputum, denied tobacco use history and no history of asthma or COPD. He lives with his and uses a cane. In the ER, Chest CTA neg for PE, showing posterior mid interstitial edema bilateral pleural effusions with small pericardial effusion. Hypoxic to 87%, placed on 1 L of oxygen with good response, no fever leukocytosis. Plan is to admit patient for further management and treatment of acute hypoxic respiratory failure. Review of Systems Review of Systems: Denies any recent fever chills or decrease in appetite respiratory see HPI cardiovascular denies chest pain gastrointestinal denies any dysphagia abdominal pain nausea vomiting or diarrhea genitourinary denies any dysuria frequency or hematuria musculoskeletal denies any joint pain or swelling neuropsych denies any weakness or seizures all other systems reviewed are negative [facility] Medical History Hydrocele, bilateral Renal mass of unknown nature Pectus carinatum BPH (benign prostatic hyperplasia) Urinary retention Surgical History Hx of cystoscopy History of surgery on lower extremity H/O inguinal hernia repair Social History Household Members: Spouse and Children Housing: House Do you presently have visiting nurse or other home services: No Alcohol intake: never Comment: reinforced on bed alarm Patient Tobacco Use Status: Never used Tobacco e-Cigarette/Vaping Use: Never Used Advance Directives: Yes Advance Directives on File: Yes Advance Directives Date on File: 07/08/23 service: No Meds Allergies Allergy/AdvReac Type Severity Reaction Status Date / Time No Known Allergies Allergy Verified 06/27/24 09:58 Active Medications: Current Medications Acetaminophen (Acetaminophen 325 Mg Tablet) 650 mg PO Q6H PRN PRN Reason: Pain, Mild 1-3,fever,headache Calcium Carbonate (Calcium Carbonate 750 Mg Tab.Chew) 750 mg PO Q4H PRN PRN Reason: Heartburn Ceftriaxone Sodium (Ceftriaxone Sodium 1 Gm Vial) 1 gm IVPUSH Q24H AYAZ Heparin Sodium (Porcine) (Heparin Sodium,Porcine 5,000 Unit/Ml Vial) 5,000 unit SUBCUT Q12H AYAZ Azithromycin 500 mg/ Sodium (Chloride) 250 mls @ 125 mls/hr IV Q24H AY[facility] Magnesium Hydroxide (Milk Of Magnesia 30 Ml Oral.Susp) 30 ml PO DAILY PRN PRN Reason: Constipation Melatonin (Melatonin 3 Mg Tablet) 6 mg PO BEDTIME PRN PRN Reason: Insomnia Sodium Chloride (0.9 % Sodium Chloride Flush 3 Ml Syringe) 3 ml IVFLUSH QSHIFT [facility] Home Medications ?Medication ?Instructions ?Recorded ?Confirmed ?Last Taken ?Type gabapentin 300 mg capsule 300 mg PO DAILY 06/03/23 06/27/24 06/24/24 History latanoprost 0.005 % eye drops 1 drp ophthalmic-Left QPM 06/03/23 06/27/24 06/23/24 History naproxen 500 mg tablet 500 mg PO BID PRN Pain 06/03/23 06/27/24 06/24/24 History losartan 25 mg tablet 25 mg PO DAILY 07/04/23 06/27/24 06/24/24 History atorvastatin 20 mg tablet 20 mg PO DAILY 06/27/24 06/27/24 06/24/24 History udorqeygjodvfteonchgtd-cflnrmxf-twzfuuoz 1 drp ophthalmic-Left BEDTIME 06/27/24 06/27/24 06/23/24 History 80 0.5 %-1 %-0.5 % eye drops (Refresh Optive Advanced) timolol maleate 0.5 % eye drops 1 drp ophthalmic-Left DAILY 06/27/24 06/27/24 06/24/24 History Physical Exam Vital Signs and Narrative: Vital Signs: Last Vital Signs Temp 98.2 F 06/27/24 14:43 Pulse 96 06/27/24 14:43 Resp 14 06/27/24 14:43 BP 123/63 06/27/24 14:43 Pulse Ox 97 06/27/24 14:43 O2 Del Method Nasal Cannula 06/27/24 14:43 O2 Flow Rate 1 06/27/24 14:43 BMI result Body Mass Index 24.4 Results Labs 06/27/24 10:42 06/27/24 10:42 Labs: Laboratory Results - last 24 hr 06/27/24 06/27/24 06/27/24 10:42 11:36 11:36 MCV 97.7 MCH 31.8 MCHC 32.5 RDW 12.6 Plt Count 102 L D MPV 9.9 Immature Gran % (Auto) 0.6 H Neut % (Auto) 65.1 Lymph % (Auto) 23.5 [place] % (Auto) 10.5 Eos % (Auto) 0.0 Baso % (Auto) 0.3 Lymph # (Auto) 0.8 L [place] # (Auto) 0.3 Eos # (Auto) 0.0 Baso # (Auto) 0.0 Abs Immat Gran (auto) 0.02 Absolute Neuts (auto) 2.1 Absolute Nucleated RBC 0.000 Nucleated RBC % (auto) 0.0 Hold Purple Top SEE NOTE SEE NOTE PT INR VBG pH VBG pCO2 VBG pO2 VBG HCO3 VBG O2 Saturation VBG Base Excess Anion Gap 10 L Estim Creat Clear Calc 41.8 Estimated GFR > 60 Random Glucose 100 Lactic Acid 1.0 Calcium 8.5 D Total Bilirubin 0.2 Direct Bilirubin < 0.2 AST 28 ALT 10 Alkaline Phosphatase 84 B-Natriuretic Peptide 41 Total Protein 6.6 Albumin 3.6 Influenza Type A (PCR) POSITIVE A Influenza Type B (PCR) NEGATIVE RSV RNA Qual (PCR) NEGATIVE SARS-CoV-2 RNA (RT-PCR) NEGATIVE 06/27/24 06/27/24 11:37 11:58 MCV MCH MCHC RDW Plt Count MPV Immature Gran % (Auto) Neut % (Auto) Lymph % (Auto) [place] % (Auto) Eos % (Auto) Baso % (Auto) Lymph # (Auto) [place] # (Auto) Eos # (Auto) Baso # (Auto) Abs Immat Gran (auto) Absolute Neuts (auto) Absolute Nucleated RBC Nucleated RBC % (auto) Hold Purple Top PT 11.8 INR 1.0 VBG pH 7.43 VBG pCO2 47 VBG pO2 54 VBG HCO3 31 H VBG O2 Saturation 87.0 VBG Base Excess 6.3 Anion Gap Estim Creat Clear Calc Estimated GFR Random Glucose Lactic Acid Calcium Total Bilirubin Direct Bilirubin AST ALT Alkaline Phosphatase B-Natriuretic Peptide Total Protein Albumin Influenza Type A (PCR) Influenza Type B (PCR) RSV RNA Qual (PCR) SARS-CoV-2 RNA (RT-PCR) Imaging Radiologist's Impressions: Impressions Chest X-Ray 06/27/24 09:55 IMPRESSION: Low lung volumes. Left lower lobe atelectasis versus pneumonia. Electronically signed by: Kaiser Muller MD 06/27/2024 11:02 AM EST RP Chest CTA 06/27/24 13:24 IMPRESSION: No acute pulmonary artery emboli. No thoracic aortic aneurysm or dissection. Posterior mild interstitial edema and bilateral pleural effusions with small pericardial effusion. Superimposed acute inflammatory versus infectious process cannot be excluded. Severe scoliosis. Fleischner guidelines were followed. Electronically signed by: Fabian Chambers MD 06/27/2024 02:03 PM EST RP Assessment and Plan (1) Influenza A: Status: Acute (2) Pneumonia: Status: Acute Plan 73-year-old man admitted with acute hypoxic respiratory failure Acute hypoxic respiratory failure secondary to community-acquired pneumonia, pleural effusions IV Rocephin and azithromycin Oxygen supplementation to keep oxygen saturation greater than 90% Antitussives as needed No wheezing, hold steroids for now, DuoNebs as needed Possible acute heart failure, unspecified IV Lasix Echocardiogram Monitor on telemetry Strict intake and output Monitor daily weight Hypertension Stable blood pressure Continue losartan Neuropathy. Unspecified Continue gabapentin BPH Continue tamsulosin and finasteride Hyperlipidemia Continue statin DVT prophylaxis with heparin Full code Quality Stroke Does the patient have a stroke diagnosis?: No VTE Prior VTE?: No VTE Risk Level:: Medical - moderate - high VTE Device Contraindication: Treatment Not Indicated VTE Drug Contraindication: N/A - Med Ordered
--- NOTE | 2024-06-27 16:04 | PHA.MEDREC ---
Addendum entered by Chaya Dailey RP 06/27/24 18:06: [facility] reviewed Original Note: Pharmacy Consult ? Medication Reconciliation Pharmacy has completed the medication reconciliation. Confirmed medications with patient utilizing production scheduler and patients at bedside. Patient had an outdated list that he had on hand but confirmed his medications with me. He stated he is still taking the Atorvastatin 20mg once daily even tho in claims that has not been filled since 10/09/23 for 90 days. He also confirmed he is taking Latanoprost eye drops once in his left eye at bedtime but we have no claims for those. He confirmed he is still taking the Losartan 50mg tab once daily even tho in claims it was last filled 04/06 for 30 days. He confirmed he is filling these at [facility] in [place]; I called them and they confirmed the patient last picked up the Atorvastatin 20mg tab on 10/16/23 for 90 days, the Latanoprost eye drops were never filled and they only had one script written from 2021 and the Losartan 50mg tab was last picked up 04/07 for 30 days. The patient and the patients states he stopped taking the Solifenacin 5mg tab in the last week due to not getting any relief. He confirmed he has not taken any medications since Thursday Morning and all his night time medications night.
--- NOTE | 2024-06-27 16:09 | PC.NURSE ---
Given sun butter & jelly sandwich to eat. Food tray ordered.
[2024-06-27] MEDS: cefTRIAXone sodium 1 GM VIAL IVPUSH (16:34)
[2024-06-27] MEDS: Heparin Sodium,Porcine 5,000 UNIT/ML VIAL 5000 UNIT SUBCUT (16:34)
[2024-06-27] MEDS: Furosemide 20 MG/2 ML VIAL IVPUSH (16:34)
[2024-06-27] MEDS: 0.9 % Sodium Chloride Flush 3 ML SYRINGE IVFLUSH (16:35)
[2024-06-27] MEDS: Oseltamivir Phosphate 75 MG CAPSULE PO (16:35)
[2024-06-27] MEDS: Latanoprost 0.005 % Ophth Sol 2.5 ML DROPS 1 DROP EYE-LEFT (21:31)
[2024-06-28] VITALS (12 sets, daily range): BP systolic 103–128; BP diastolic 54–65; PULSE 74–94; RESP 13–30; TEMP 36.4–37.3; O2SAT 87–100
--- NOTE | 2024-06-28 00:50 | PC.NURSE ---
pt is alert and oriented, skin appropriate for ethnicity, respirations even and unlabored, ls course on the left lower lobe, sating at 100% on the 2l via nasal cannual, pt denies pain at this time, is no reporting sob, vs stable and ns on the monitor
[2024-06-28] MEDS: 0.9 % Sodium Chloride Flush 3 ML SYRINGE IVFLUSH ×4 (00:56→21:10)
[2024-06-28 05:14] LABS: Hematocrit 41.1 % (42.0-52.0); Hemoglobin 13.7 g/dl (14.0-18.0); Mean Corpuscular HGB Conc 33.3 g/dl (31.0-36.0); Mean Corpuscular Hemoglobin 32.1 pg (27.0-33.0); Mean Corpuscular Volume 96.3 fL (80.0-98.0); Mean Platelet Volume 9.5 fL (9.4-12.4); Platelet Count 117 X10*3/uL (160-400); Red Blood Count 4.27 X10*6/uL (4.60-5.80); Red Cell Distribution Width 12.9 % (11.0-16.0)
[2024-06-28 05:23] LABS: Anion Gap 11 (12-20); Blood Urea Nitrogen 22 mg/dL (9-16); Calcium 8.5 mg/dL (8.4-10.2); Carbon Dioxide 32 mmol/L (22-29); Chloride 105 mmol/L (96-108); Creatinine Clr Calc Pharmacy 44.3; Estimated Glomerular Filt Rate > 60; Glucose Random 102 mg/dL (60-115); Potassium 4.4 mmol/L (3.3-5.1); Sodium 144 mmol/L (135-145)
[2024-06-28 05:30] LABS: B Type Natriuretic Peptide 70 pg/mL (<100)
--- NOTE | 2024-06-28 07:00 | CA_ITS ---
Transthoracic Echocardiogram Patient (Last, First, Middle): Ifeanyi White A Gender: Male Date of : 1950 Age: 73 Procedure Date: 06/28/2024 Procedure Type: Transthoracic Echocardiogram Location: [facility] [place] Height: 127. cm Weight: 39.01 kg BSA: 1.14 m2 Heart Rate: bpm BP: 113 / 56 mmHg Laboratory Tech: TO Referring MD: María Phan NP Symptoms: pericardial effusion Study Quality: Fair ECG Rhythm: Sinus Conclusions: - The left ventricular systolic function is normal. The calculated ejection fraction is 59% by biplane method. 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 Echodense lesion adjacent to the anterior mitral leaflet in the atrial aspect, but also seen in the previous study. Unclear if it is part of valvular apparatus or old vegetation. - There is a small pericardial effusion. Findings Left Ventricle Normal left ventricular cavity size. There is normal left ventricular wall thickness. The left ventricular systolic function is normal. The calculated ejection fraction is 59% by biplane method. There is no evidence of regional wall motion abnormalities. Evidence suggests grade I (mild) diastolic dysfunction. Right Ventricle Normal right ventricular cavity size. There is normal right ventricular systolic function. Atria Both atria are normal in size. Aortic Valve There is a normal trileaflet aortic valve. There is no aortic valve stenosis. There is no aortic valve regurgitation. Mitral Valve The mitral valve appears myxomatous. There is moderate anterior mitral leaflet thickening. There is no mitral valve stenosis. Echodensity seen in the atrial aspect of anterior mitral leaflet. Uncertain etiology. Could be part of valvular apparatus. Less likely old vegetation. Pulmonic Valve There is trace pulmonic valve regurgitation. Tricuspid Valve Normal tricuspid valve structure. There is trace tricuspid valve regurgitation. Tricuspid regurgitation envelope is inadequate for calculation of right ventricular systolic pressure. Great Vessels The asc aorta is normal in size. Venous The inferior vena cava is normal in size and collapses greater than 50% with inspiration. Pericardium/Pleural There is a small pericardial effusion. Prior Study Comparison Changes noted compared to prior study dated: 07/06/2023. Mitral valve looks similar to prior study. Pericardial effusion is smaller. Measurements 2D Linear Measurements IVSd: 0.81 0.6-0.9/0.6-1.0 cm LVIDd: 2.75 3.9-5.3/4.2-5.9 cm LVIDd Index: 2.41 2.4-3.2/2.2-3.1 cm/m2 LVIDs: 1.65 2.0-3.6 cm LVPWd: 0.93 0.7-1.1 cm LA Diam: 2.30 2.7-3.8/3.0-4.0 cm LAIDs Index: 2.02 1.5-2.3 cm/m2 LV Mass: 72.70 67-162/88-224 g LV Mass Index: 63.77 43-95/49-115 g/m2 LVOT Diam: 1.90 3.0+(-)1.3 cm 2D Systolic Function EF 4C: 59.30 >55% EF 2C: 59.50 >55% EF BiP: 59.00 >55% Mitral Valve MV Pk E: 0.80 MV PK A: 1.09 MV Decel Time: 250.00 E/A: 0.70 E'Lateral: 3.92 E'Medial: 3.37 E/E' Med: 23.80 E/E' Lat: 20.50 PHT: 73.00 MVA PHT: 3.01 Decel Dane: 3.21 Aortic Valve AoV Pk Sammy: 1.19 AoV Mn Sammy: 0.81 AoV VTI: 0.22 AoV Pk Grad: 6.00 Aov Mn Grad: 3.00 SHASHA Cont.VTI: 3.02 LVOT LVOT Pk Sammy: 1.29 LVOT Mn Sammy: 0.82 LVOT VTI: 0.24 LVOT Pk Grad: 7.00 LVOT Mn Grad: 3.00 LVOT Diam: 1.90 LVOT Area: 2.84 Diastolic Function MV Pk E: 0.80 MV Pk A: 1.09 E/A: 0.70 E'Medial: 3.37 E/E' Med: 23.80 E' Laterial: 3.92 E/E' Lat: 20.50 Right Ventricle TAPSE (mm): 16.70 TVS' Sammy: 11.00 Tricuspid Valve RA Press: 3.00 Great Vessels Aorta Sinus of Valsalva: 2.78 2.0-3.5 cm Ao Asc: 1.90 2.1-3.4 cm Updated in Other Vendor System with Status of Final Bert Joya MD electronically signed on 06/28/2024 4:17:04 PM with status of Final
[2024-06-28] MEDS: Albuterol/Iprat 2.5/0.5MG 3 ML AMPUL.NEB INHALE ×3 (08:23→20:27)
[2024-06-28] MEDS: Tamsulosin HCL 0.4 MG CAPSULE 0.8 MG PO (09:20)
[2024-06-28] MEDS: Oseltamivir Phosphate 30 MG CAPSULE PO ×2 (09:20→21:10)
[2024-06-28] MEDS: Gabapentin 300 MG CAPSULE PO (09:20)
[2024-06-28] MEDS: Atorvastatin Calcium 20 MG TABLET PO (09:20)
[2024-06-28] MEDS: Finasteride 5 MG TABLET PO (09:20)
[2024-06-28] MEDS: timoloL maleate 0.5 % Oph Sol 5 ML DRBTL 1 DROP EYE-LEFT (09:20)
[2024-06-28] MEDS: Furosemide 20 MG/2 ML VIAL IVPUSH (09:20)
[2024-06-28] MEDS: Losartan Potassium 25 MG TABLET PO (09:20)
--- NOTE | 2024-06-28 09:28 | PC.NURSE ---
noted to be 87% on room air while laying in the stretcher, placed on 2L NC
--- NOTE | 2024-06-28 10:07 | PC.NURSE ---
patient takes all home meds at once with water. continues to ambulate independently to the bathroom w/ steady gait
--- NOTE | 2024-06-28 11:44 | MHC.CM.PN ---
IMM 06/28/24, Pt lives with his and son. PCP confirmed: Jamie Name, HCP on file and confirmed: Do. Pt. 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 His family takes care of him, and his informed CM that he does need a BUSINESS MANAGEMENT CONSULTANT, and that her dtr has contacted [facility] about this and they have not gotten one. For DME, he has a shower chair, grab bars in the bathroom. Family to transport home at [place]. DCP: home with services. CM to follow for DC needs.
--- NOTE | 2024-06-28 12:42 | HO.PM.IMPN ---
Subjective Subjective Date of Service: 06/28/24 Review of Systems Follow up pericardial effusion, flu Feeling better, still on oxygen Physical Exam Vital Signs: Vital Signs: Last Vital Signs Temp 97.7 F 06/28/24 08:33 Pulse 79 06/28/24 11:53 Resp 21 H 06/28/24 11:53 BP 110/54 L 06/28/24 09:29 Pulse Ox 87 L 06/28/24 09:29 O2 Del Method Room Air 06/28/24 09:29 O2 Flow Rate 2 06/28/24 08:33 Oxygen Flow Rate 2 06/28/24 00:51 BMI result Body Mass Index 24.4 Appearing in no acute distress lung sounds are clear to auscultation heart regular rate rhythm, clear S1, S2 positive bowel sounds, abdomen is soft, nontender neuro patient is alert x3, no focal deficits Objective Data Active Medications Acetaminophen (Acetaminophen 325 Mg Tablet) 650 mg PO Q6H PRN PRN Reason: Pain, Mild 1-3,fever,headache Albuterol/Ipratropium (Albuterol/Iprat 2.5/0.5mg 3 Ml Ampul.Neb) 3 ml INHALE RQ4H WHILE AWAKE [facility] Last Admin: 06/28/24 11:53 Dose: 3 ml Documented By: MONIKA Atorvastatin Calcium (Atorvastatin Calcium 20 Mg Tablet) 20 mg PO DAILY [facility] Last Admin: 06/28/24 09:20 Dose: 20 mg Documented By: MITCH Calcium Carbonate (Calcium Carbonate 750 Mg Tab.Chew) 750 mg PO Q4H PRN PRN Reason: Heartburn Ceftriaxone Sodium (Ceftriaxone Sodium 1 Gm Vial) 1 gm IVPUSH Q24H [facility] Last Admin: 06/27/24 16:34 Dose: 1 gm Documented By: SD Finasteride (Finasteride 5 Mg Tablet) 5 mg PO DAILY [facility] Last Admin: 06/28/24 09:20 Dose: 5 mg Documented By: MITCH Furosemide (Furosemide 20 Mg/2 Ml Vial) 20 mg IVPUSH DAILY [facility]; Protocol Last Admin: 06/28/24 09:20 Dose: 20 mg Documented By: MITCH Gabapentin (Gabapentin 300 Mg Capsule) 300 mg PO DAILY [facility] Last Admin: 06/28/24 09:20 Dose: 300 mg Documented By: MITCH Heparin Sodium (Porcine) (Heparin Sodium,Porcine 5,000 Unit/Ml Vial) 5,000 unit SUBCUT Q12H [facility] Last Admin: 06/28/24 04:47 Dose: Not Given Documented By: MITCH Non-Admin Reason: Patient Asleep Azithromycin 500 mg/ Sodium (Chloride) 250 mls @ 125 mls/hr IV Q24H [facility] Latanoprost (Latanoprost 0.005 % Ophth Sonia 2.5 Ml Drops) 1 drop EYE-LEFT BEDTIME [facility] Last Admin: 06/27/24 21:31 Dose: 1 drop Documented By: SD Losartan Potassium (Losartan Potassium 25 Mg Tablet) 25 mg PO DAILY [facility]; Protocol Last Admin: 06/28/24 09:20 Dose: 25 mg Documented By: MITCH Magnesium Hydroxide (Milk Of Magnesia 30 Ml Oral.Susp) 30 ml PO DAILY PRN PRN Reason: Constipation Melatonin (Melatonin 3 Mg Tablet) 6 mg PO BEDTIME PRN PRN Reason: Insomnia Oseltamivir Phosphate (Oseltamivir Phosphate 30 Mg Capsule) 30 mg PO BID [facility] Last Admin: 06/28/24 09:20 Dose: 30 mg Documented By: MITCH Sodium Chloride (0.9 % Sodium Chloride Flush 3 Ml Syringe) 3 ml IVFLUSH QSHIFT [facility] Last Admin: 06/28/24 09:21 Dose: 3 ml Documented By: MITCH Tamsulosin HCl (Tamsulosin Hcl 0.4 Mg Capsule) 0.8 mg PO DAILY [facility] Last Admin: 06/28/24 09:20 Dose: 0.8 mg Documented By: MITCH Timolol Maleate (Timolol Maleate 0.5 % Oph Sonia 5 Ml Drbtl) 1 drop EYE-LEFT DAILY [facility] Last Admin: 06/28/24 09:20 Dose: 1 drop Documented By: MITCH Labs 06/28/24 04:57 06/28/24 04:57 Labs: Laboratory Results - last 24 hr 06/28/24 04:57 MCV 96.3 MCH 32.1 MCHC 33.3 RDW 12.9 Plt Count 117 L MPV 9.5 Absolute Nucleated RBC 0.000 Nucleated RBC % (auto) 0.0 Anion Gap 11 L Estim Creat Clear Calc 44.3 Estimated GFR > 60 Random Glucose 102 Calcium 8.5 B-Natriuretic Peptide 70 Assessment and Plan (1) Influenza A: Status: Acute Plan 73-year-old man admitted with acute hypoxic respiratory failure Acute hypoxic respiratory failure secondary to community-acquired pneumonia, pleural effusions IV Rocephin and azithromycin Oxygen supplementation to keep oxygen saturation greater than 90% Antitussives as needed No wheezing, hold steroids for now, DuoNebs Possible acute heart failure, unspecified IV Lasix Echocardiogram pending Monitor on telemetry Strict intake and output Monitor daily weight Hypertension Stable blood pressure Continue losartan Neuropathy. Unspecified Continue gabapentin BPH Continue tamsulosin and finasteride Hyperlipidemia Continue statin DVT prophylaxis with heparin Full code Quality Stroke Does the patient have a stroke diagnosis?: No VTE Prior VTE?: No VTE Risk Level:: Medical - moderate - high VTE Device Contraindication: Treatment Not Indicated VTE Drug Contraindication: N/A - Med Ordered
--- NOTE | 2024-06-28 15:07 | P.CDIM_ITS ---
PROVIDER RESPONSE TEXT: To clarify, the appropriate diagnosis supported by the clinical indicators: Influenza A QUERY TEXT: PHYSICIAN'S DOCUMENTATION REQUEST Date of Query: 06/28/2024 08:51 AM EST Patient Name: Ifeanyi White Admit Date: 06/27/2024 Dear María Phan DELIVERY DRIVER/SUPERVISOR, A review of the medical record indicates additional documentation may be needed. Please review below and update the documentation accordingly. Clinical Indicators: ED 06/27 - Patient reports positive sick exposure at home. Given hypoxia, in the setting of influenza, pneumonia patient will be admitted. Patient is positive for Influenza A. H&P 06/27 - Under Assessment and plan area: Influenza A Plan: Acute hypoxic respiratory failure secondary to community acquired pneumonia, pleural effusions. Possible to place noted diagnosis within the written body of your Plan, if agree: Influenza A Other specified Other (explain) Clinically unable to determine (explain) Thank you, Sylvie Sawyer, CCS, CDIS Use of terms such as suspected, likely, concern for, or probable (associated with a specific diagnosi s that is being evaluated, monitored, or treated as if it exists) are acceptable and can be coded in the inpatient se tting, when documented at the time of discharge. Please use your independent medical judgment in providing your response. THIS QUERY IS PART OF THE PERMANENT MEDICAL RECORD
[2024-06-28] MEDS: Heparin Sodium,Porcine 5,000 UNIT/ML VIAL 5000 UNIT SUBCUT (17:01)
[2024-06-28] MEDS: Azithromycin 500 MG in 0.9 % Sodium Chloride 250 ML 125 MG IV (17:01)
[2024-06-28] MEDS: cefTRIAXone sodium 1 GM VIAL IVPUSH (17:06)
[2024-06-28] MEDS: Latanoprost 0.005 % Ophth Sol 2.5 ML DROPS 1 DROP EYE-LEFT (21:13)
[2024-06-29] VITALS (10 sets, daily range): BP systolic 103–141; BP diastolic 56–71; PULSE 74–86; RESP 17–20; TEMP 36.2–37; O2SAT 84–98
[2024-06-29] MEDS: Heparin Sodium,Porcine 5,000 UNIT/ML VIAL 5000 UNIT SUBCUT ×2 (01:54→16:33)
[2024-06-29] MEDS: Finasteride 5 MG TABLET PO (08:15)
[2024-06-29] MEDS: Albuterol/Iprat 2.5/0.5MG 3 ML AMPUL.NEB INHALE ×4 (08:15→20:33)
[2024-06-29] MEDS: Atorvastatin Calcium 20 MG TABLET PO (08:15)
[2024-06-29] MEDS: Losartan Potassium 25 MG TABLET PO (08:15)
[2024-06-29] MEDS: Tamsulosin HCL 0.4 MG CAPSULE 0.8 MG PO (08:15)
[2024-06-29] MEDS: Gabapentin 300 MG CAPSULE PO (08:15)
[2024-06-29] MEDS: Oseltamivir Phosphate 30 MG CAPSULE PO ×2 (08:15→19:59)
[2024-06-29] MEDS: timoloL maleate 0.5 % Oph Sol 5 ML DRBTL 1 DROP EYE-LEFT ×2 (11:21→19:59)
[2024-06-29] MEDS: 0.9 % Sodium Chloride Flush 3 ML SYRINGE IVFLUSH ×3 (11:21→23:57)
--- NOTE | 2024-06-29 11:49 | HO.PM.IMPN ---
Subjective Subjective Date of Service: 06/29/24 Review of Systems Follow up pericardial effusion, flu Feeling better, still on oxygen Physical Exam Vital Signs: Vital Signs: Last Vital Signs Temp 97.4 F 06/29/24 11:04 Pulse 86 06/29/24 11:39 Resp 18 06/29/24 11:39 BP 103/65 06/29/24 11:04 Pulse Ox 96 06/29/24 11:04 O2 Del Method Nasal Cannula 06/29/24 11:04 O2 Flow Rate 1 06/29/24 11:04 Oxygen Flow Rate 2 06/28/24 00:51 BMI result Body Mass Index 24.4 Appearing in no acute distress lung sounds are clear to auscultation heart regular rate rhythm, clear S1, S2 positive bowel sounds, abdomen is soft, nontender neuro patient is alert x3, no focal deficits Objective Data Active Medications Acetaminophen (Acetaminophen 325 Mg Tablet) 650 mg PO Q6H PRN PRN Reason: Pain, Mild 1-3,fever,headache Albuterol/Ipratropium (Albuterol/Iprat 2.5/0.5mg 3 Ml Ampul.Neb) 3 ml INHALE RQ4H WHILE AWAKE [facility] Last Admin: 06/29/24 11:38 Dose: 3 ml Documented By: JEANA Atorvastatin Calcium (Atorvastatin Calcium 20 Mg Tablet) 20 mg PO DAILY [facility] Last Admin: 06/29/24 08:15 Dose: 20 mg Documented By: DEEPALI Calcium Carbonate (Calcium Carbonate 750 Mg Tab.Chew) 750 mg PO Q4H PRN PRN Reason: Heartburn Ceftriaxone Sodium (Ceftriaxone Sodium 1 Gm Vial) 1 gm IVPUSH Q24H [facility] Last Admin: 06/28/24 17:06 Dose: 1 gm Documented By: DEEPALI Finasteride (Finasteride 5 Mg Tablet) 5 mg PO DAILY [facility] Last Admin: 06/29/24 08:15 Dose: 5 mg Documented By: DEEPALI Gabapentin (Gabapentin 300 Mg Capsule) 300 mg PO DAILY [facility] Last Admin: 06/29/24 08:15 Dose: 300 mg Documented By: DEEPALI Heparin Sodium (Porcine) (Heparin Sodium,Porcine 5,000 Unit/Ml Vial) 5,000 unit SUBCUT Q12H [facility] Last Admin: 06/29/24 01:54 Dose: 5,000 unit Documented By: HARITHA Azithromycin 500 mg/ Sodium (Chloride) 250 mls @ 125 mls/hr IV Q24H [facility] Last Infusion: 06/28/24 19:05 Dose: Infused Documented By: HARITHA Latanoprost (Latanoprost 0.005 % Ophth Sonia 2.5 Ml Drops) 1 drop EYE-LEFT BEDTIME [facility] Last Admin: 06/28/24 21:13 Dose: 1 drop Documented By: HARITHA Losartan Potassium (Losartan Potassium 25 Mg Tablet) 25 mg PO DAILY [facility]; Protocol Last Admin: 06/29/24 08:15 Dose: 25 mg Documented By: DEEPALI Magnesium Hydroxide (Milk Of Magnesia 30 Ml Oral.Susp) 30 ml PO DAILY PRN PRN Reason: Constipation Melatonin (Melatonin 3 Mg Tablet) 6 mg PO BEDTIME PRN PRN Reason: Insomnia Oseltamivir Phosphate (Oseltamivir Phosphate 30 Mg Capsule) 30 mg PO BID [facility] Last Admin: 06/29/24 08:15 Dose: 30 mg Documented By: DEEPALI Sodium Chloride (0.9 % Sodium Chloride Flush 3 Ml Syringe) 3 ml IVFLUSH QSHIFT [facility] Last Admin: 06/29/24 11:21 Dose: 3 ml Documented By: JEVON Tamsulosin HCl (Tamsulosin Hcl 0.4 Mg Capsule) 0.8 mg PO DAILY [facility] Last Admin: 06/29/24 08:15 Dose: 0.8 mg Documented By: DEEPALI Timolol Maleate (Timolol Maleate 0.5 % Oph Sonia 5 Ml Drbtl) 1 drop EYE-LEFT DAILY [facility] Last Admin: 06/29/24 11:21 Dose: 1 drop Documented By: JEVON Labs 06/28/24 04:57 06/29/24 13:01 Microbiology Microbiology Results: Microbiology 06/27/24 11:36 Blood Culture - Preliminary Blood - Venous No growth after 24 hours. 06/27/24 11:36 Blood Culture - Preliminary Blood - Venous No growth after 24 hours. Assessment and Plan (1) Influenza A: Status: Acute Plan 73-year-old man admitted with acute hypoxic respiratory failure Acute hypoxic respiratory failure secondary to community-acquired pneumonia, pleural effusions Oxygen supplementation to keep oxygen saturation greater than 90% Antitussives as needed repeat CXR today with worsening pna, switch to vancomycin and zosyn prednisone, duonebs Possible acute heart failure, unspecified. Resolved s/p IV Lasix Echocardiogram with normal EF, small pericardial effusion(noted on previous echo) Monitor on telemetry Strict intake and output Monitor daily weight Hypertension Stable blood pressure Continue losartan Neuropathy. Unspecified Continue gabapentin BPH Continue tamsulosin and finasteride Hyperlipidemia Continue statin DVT prophylaxis with heparin Full code Quality Stroke Does the patient have a stroke diagnosis?: No VTE Prior VTE?: No VTE Risk Level:: Medical - moderate - high VTE Device Contraindication: Treatment Not Indicated VTE Drug Contraindication: N/A - Med Ordered
--- NOTE | 2024-06-29 12:36 | MHC.CM.PN ---
EMR REVIEWED, PER HOSPITALIST CHRISTIANSEN FOR REPEAT CXR, HOME O2 EVAL, CM WILL CONT TO FOLLOW DC NEEDS.
[2024-06-29 13:44] LABS: Creatinine Clr Calc Pharmacy 45.7; Estimated Glomerular Filt Rate > 60
[2024-06-29] MEDS: Piperacillin Sodium/Tazobactam 3.375 GM in 0.9 % Sodium Chloride 50 ML IV ×3 (14:00→23:56)
[2024-06-29] MEDS: vancomycin HCL 1,000 MG in 0.9 % Sodium Chloride 250 ML 270 MG IV (14:43)
--- NOTE | 2024-06-29 15:19 | PHA.PROG ---
Admission Date/Time: June 27, 2024 15:05 Indication: RESPIRATORY INFECTION Weight in k.4 kg Adjusted body weight in Kg: [place] body weight in Kg: Obesity Dosing Indication % IBW: Serum Creatinine - Last 168 Hours 06/27/24 06/28/24 06/29/24 10:42 04:57 13:01 Creatinine 0.71 0.67 0.65 Estimated CrCl and GFR - Last 168 Hours 06/27/24 06/28/24 06/29/24 10:42 04:57 13:01 Estim Creat Clear Calc 41.8 44.3 45.7 Estimated GFR > 60 > 60 > 60 Vancomycin Loading Dose: 1000 MG Current Vancomycin Dosing Regimen: 750 MG q12h Vancomycin Monitoring using AUC goal of 400 - 600 range with trough as surrogate marker: 598 Date and Time for next Vancomycin Level to be drawn: 06/30 @1300 Pharmacist Comments on Vancomycin Plan: Vancomycin dosing will take advantage of [employer] as a clinical decision support tool that uses Bayesian modeling to calculate individual patient's pharmacokinetic parameters and forecast the patient's drug concentration time course with the target goal AUC 24 range of 400 - 600 mg/L/hr.
[2024-06-29] MEDS: Latanoprost 0.005 % Ophth Sol 2.5 ML DROPS 1 DROP EYE-LEFT (20:15)
[2024-06-30] VITALS (8 sets, daily range): BP systolic 110–153; BP diastolic 58–81; PULSE 60–92; RESP 16–20; TEMP 36.3–37.1; O2SAT 89–98
[2024-06-30] MEDS: Heparin Sodium,Porcine 5,000 UNIT/ML VIAL 5000 UNIT SUBCUT ×2 (03:22→17:04)
[2024-06-30] MEDS: vancomycin HCL 750 MG in 0.9 % Sodium Chloride 250 ML 265 MG IV ×2 (03:23→17:05)
[2024-06-30 07:06] LABS: Creatinine Clr Calc Pharmacy 46.4; Estimated Glomerular Filt Rate > 60
[2024-06-30] MEDS: Piperacillin Sodium/Tazobactam 3.375 GM in 0.9 % Sodium Chloride 50 ML IV ×2 (07:25→11:26)
[2024-06-30] MEDS: Albuterol/Iprat 2.5/0.5MG 3 ML AMPUL.NEB INHALE ×3 (08:30→15:25)
[2024-06-30] MEDS: Finasteride 5 MG TABLET PO (08:58)
[2024-06-30] MEDS: Losartan Potassium 25 MG TABLET PO (09:00)
[2024-06-30] MEDS: 0.9 % Sodium Chloride Flush 3 ML SYRINGE IVFLUSH ×2 (09:00→17:06)
[2024-06-30] MEDS: Atorvastatin Calcium 20 MG TABLET PO (09:00)
[2024-06-30] MEDS: Oseltamivir Phosphate 30 MG CAPSULE PO (09:00)
[2024-06-30] MEDS: Gabapentin 300 MG CAPSULE PO (09:00)
[2024-06-30] MEDS: predniSONE 20 MG TABLET 40 MG PO (09:12)
[2024-06-30] MEDS: Tamsulosin HCL 0.4 MG CAPSULE 0.8 MG PO (09:12)
--- NOTE | 2024-06-30 12:28 | PM.DS ---
DS: Providers Provider Date of Service: 06/30/24 Date of admission: 06/27/24 15:05 Date of discharge: 06/30/24 Primary care physician: Jamie Garcia MD Attending physician on discharge: Kai Almonte Discharging clinician: Bárbara Espino DS: Diagnosis Discharge Diagnosis (1) Influenza A: Status: Acute DS: Summary Hospital Course Hospital Course: From H&P on the day of admission This is a 73-year-old male,unspecified chf, congenital vs acquired pectus carinatum, bph, chronic bilateral hydroceles self catheterization, who presents emergency department with complaints of cough, congestion for the last 3 days. Patient also reports some chest pain with coughing only. He denies any recent travel, surgery, or hospitalizations. No history of blood clots. He is not on anticoagulation. He states that he has been coughing up blood, denies history of similar symptoms. He denies smoking history. He has no history of asthma or COPD. Patient reports positive sick exposure at home. He was born in the [place]. He is up-to-date with all his immunizations. Denies history of incarceration, or homelessness. Denies any fevers, chills, palpitations, abdominal pain, nausea, vomiting or diarrhea. No bloody or black stool. No other complaints or concerns at this time. MD elicited complaint: cough and nasal congestion 73-year-old man presenting with complaints of shortness of breath and congestion over the last 3 days with cough. He denied any fever, chills, nausea, vomiting, diarrhea, recent travel, sick contacts he reported some mild hemoptysis with sputum, denied tobacco use history and no history of asthma or COPD. He lives with his and uses a cane. In the ER, Chest CTA neg for PE, showing posterior mid interstitial edema bilateral pleural effusions with small pericardial effusion. Hypoxic to 87%, placed on 1 L of oxygen with good response, no fever leukocytosis. Plan is to admit patient for further management and treatment of acute hypoxic respiratory failure. Acute hypoxic respiratory failure secondary to community-acquired pneumonia, pleural effusions initially treated with IV abx, repeat CXR showed multifocal pna and patient was switched to vancomycin and zosyn. he has remained afebrile, respiratory symptoms improved and he was able to be weaned off of supplemental oxygen. he is able to ambulate without shortness of breath. Blood cultures have remained negative to date. We will be discharged home to complete course of antibiotics and Tamiflu. Thrombocytopenia likely viral due to acute influenza A. acute HFpEF Treated with IV Lasix. Echocardiogram with normal EF, grade 1 diastolic dysfunction, small pericardial effusion(noted on previous echo). 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 Echodense lesion adjacent to the anterior mitral leaflet in the atrial aspect, but also seen in the previous study. Unclear if it is part of valvular apparatus or old vegetation - seen on previous ECHO - recommend outpatient follow-up with Cardiology. We will be discharged home with 20 mg of Lasix daily, repeat BMP in 1 week. Time Attestation Discharge Coordination Time (in mins): 35 Quality: Safe Use of Opioids Does Pt have an Active Cancer Diagnosis on the Problem List?: No Quality: Stroke Does the patient have a stroke diagnosis?: No Physical Exam Vital Signs: Vital Signs: Last Vital Signs Temp 98.7 F 06/30/24 10:56 Pulse 84 06/30/24 11:45 Resp 20 06/30/24 11:45 BP 150/81 H 06/30/24 10:56 Pulse Ox 94 06/30/24 10:56 O2 Del Method Nasal Cannula 06/30/24 10:56 O2 Flow Rate 1 06/30/24 10:56 Oxygen Flow Rate 2 06/28/24 00:51 BMI result Body Mass Index 24.4 Const: General: cooperative, comfortable, alert and awake Nutritional Appearance: average body habitus Orientation/consciousness: patient oriented x3 Chest: Other: severe scoliosis; pectus carinatum Resp: Effort & Inspection: normal respiratory effort, able to speak in complete sentences, no respiratory distress and no use of accessory muscles Cardio: Rate: regular rate Neuro: General: patient oriented x3, moves all extremities and CN's II-XI intact bilaterally DS: Data Data Completed and Pending Labs on day of discharge: Laboratory Results - last 24 hr 06/29/24 06/30/24 13:01 06:31 Creatinine 0.65 0.64 Estim Creat Clear Calc 45.7 46.4 Estimated GFR > 60 > 60 Preliminary micro results at discharge 06/27/24 11:36 Blood Culture - Preliminary Blood - Venous No growth after 48 hours. 06/27/24 11:36 Blood Culture - Preliminary Blood - Venous No growth after 48 hours. Discharge Plan Discharge Anticipated Discharge Date/Time: 06/30/24 13:28 Patient Disposition: Home Health Service Discharge Diagnosis: influenza a pneumonia acute on chronic CHF Referrals: [facility] [Outside] - 1 Week (SNF, A NURSE WILL REACH OUT TO YOU TO SET UP 1ST VISIT ON 07/02. ) Jamie Garcia MD [Primary Care Provider] - 1 Week Bert Joya MD [Physician] - 1 Week (abnormal echo ) Discharge Medications: New oseltamivir 30 mg Capsule 30 mg PO BID Qty: 5 0RF furosemide [Lasix] 20 mg tablet 20 mg PO DAILY Qty: 30 0RF doxycycline monohydrate 100 mg tablet 100 mg PO BID Qty: 8 0RF cefuroxime axetil 500 mg tablet 500 mg PO Q12H 4 Days Qty: 8 0RF Continued finasteride 5 mg tablet 5 mg PO DAILY 30 Days Qty: 30 4RF losartan 25 mg tablet 25 mg PO DAILY timolol maleate 0.5 % drops 1 drp ophthalmic-Left DAILY atorvastatin 20 mg tablet 20 mg PO DAILY Refresh Optive Advanced 0.5-1-0.5 % Drops 1 drp ophthalmic-Left BEDTIME naproxen 500 mg tablet 500 mg PO BID PRN (Reason: Pain) gabapentin 300 mg capsule 300 mg PO DAILY latanoprost 0.005 % drops 1 drp ophthalmic-Left QPM tamsulosin 0.4 mg capsule 0.8 mg PO DAILY Qty: 180 3RF Discharge Orders: Discharge Order (Routine); Ordered 06/30/24 Ordered By: Bárbara Espino Activity on Discharge: As tolerated Stand Alone Forms: Patient Portal Discharge page Print Language: Mohawk Other Ambulatory Orders: Basic Metabolic Panel (Routine) Timeframe: 1 Week Facility: [facility] - Location: Laboratory Ordered By: Bárbara Espino Care Plan Goals: see below Health Concerns: influenza a pneumonia diastolic CHF acute respiratory failure with hypoxia - resolved Plan of Treatment: complete course of antibiotics as prescribed for pneumonia Complete course of Tamiflu for influenza a start taking 20 mg Lasix daily. Repeat lab work in 1 week call to schedule follow-up appointment with your primary care provider recommend outpatient follow-up with Cardiology Assessment: see discharge summary
[2024-06-30 13:07] LABS: Vancomycin Random 12.8 mcg/mL (15-20)
--- NOTE | 2024-06-30 13:35 | P.F2F_ITS ---
Service Date Service Date: 06/30/24 Encounter Date of encounter: 06/30/24 Reasons for Services Signs and symptoms assessed: needs residential for oxygen monitoring;medication management/medication adjustment during hospital stay Reason for residential: CV/CP assess and/or care and medication management MD Overseeing Care: Jamie Garcia Homebound: Leaving the home is medically contraindicated at this time without the asist of a device and/or another person due th the listed conditions above and below. Reason homebound: weakness related to hospital stay Certification: Based on the above findings, I certify that this patient is confined to the home and needs intermittent residential care, physical therapy and/or speech therapy, or continues to need occupational therapy. The patient is under my care, and I have initiated the establishment of the plan of care. The patient will be followed by a physician who will periodically review the plan of care. Time Spent With Patient Time: Total time managing care of this patient today ____ minutes.
--- NOTE | 2024-06-30 13:42 | MHC.CM.PN ---
PT MEDICALLY CLEARED FOR DC HOME W/NEW [facility] AND RESUMP OF FAMILY SUPPORT, FAMILY FOR TRANSPORT.
== END 2024-06-30 18:34 | disposition home health service (06) | DRG 193 ==
LOC: HO.ED 12:04 → HO.EDOVER 15:06 → HO.IMC 06-28 11:36
PROVIDERS: Emergency Medicine; Physician Assistant Medical; Admitting Provider Nurse Practitioner Acute Care; Emergency Provider Emergency Medicine; PCP Internal Medicine Geriatric Medicine; Visit Provider Physician Assistant Medical
DX: J10.00 Influenza due to other identified influenza virus with unspecified type of pneumonia (principal); I50.31 Acute diastolic (congestive) heart failure; J96.01 Acute respiratory failure with hypoxia; J91.8 Pleural effusion in other conditions classified elsewhere; N40.0 Benign prostatic hyperplasia without lower urinary tract symptoms; I11.0 Hypertensive heart disease with heart failure; G62.9 Polyneuropathy, unspecified; E78.5 Hyperlipidemia, unspecified; Z79.899 Other long term (current) drug therapy
CPT/HCPCS: 0241U; 36415; 71045; 71046; 71275; 80048; 80076; 80202; 82565; 82803; 83605; 83880; 84484; 85025; 85027; 85610; 87040; 93005; 93306; 94640; 99285; J0456; J0696; J1644; J1940; J2543; J2919; J3370; Q9957; Q9967

== ENCOUNTER → 2024-06-27 09:55 | Outpatient (BNV) | payer OTHER, SELFPAY | PROVIDERS: Emergency Provider Emergency Medicine; PCP Internal Medicine Geriatric Medicine; Visit Provider Radiology Diagnostic Radiology | DX: R09.02 Hypoxemia (principal); R04.2 Hemoptysis; J90 Pleural effusion, not elsewhere classified; R05.9 Cough, unspecified | CPT/HCPCS: 71046; 71275 ==

== ENCOUNTER → 2024-06-27 11:34 | Outpatient (BNV) | payer OTHER, SELFPAY | PROVIDERS: Emergency Provider Emergency Medicine; PCP Internal Medicine Geriatric Medicine; Visit Provider Internal Medicine | DX: R07.9 Chest pain, unspecified (principal); I45.10 Unspecified right bundle-branch block; R94.31 Abnormal electrocardiogram [ECG] [EKG] | CPT/HCPCS: 93010 ==

== ENCOUNTER 2024-06-27 15:05 | Outpatient (BNV) | payer OTHER, SELFPAY | END 2024-06-29 07:55 | PROVIDERS: Admitting Provider Nurse Practitioner Acute Care; Emergency Provider Emergency Medicine; PCP Internal Medicine Geriatric Medicine; Visit Provider Radiology Diagnostic Radiology | DX: J18.9 Pneumonia, unspecified organism (principal) | CPT/HCPCS: 71045 ==

== ENCOUNTER 2024-06-27 15:05 | Outpatient (BNV) | payer OTHER, SELFPAY | END 2024-06-28 07:00 | PROVIDERS: Admitting Provider Nurse Practitioner Acute Care; Emergency Provider Emergency Medicine; PCP Internal Medicine Geriatric Medicine; Visit Provider Internal Medicine | DX: I34.1 Nonrheumatic mitral (valve) prolapse (principal); I34.89 Other nonrheumatic mitral valve disorders; I51.89 Other ill-defined heart diseases | CPT/HCPCS: 93306 ==

== ENCOUNTER → 2024-06-27 15:05 | Outpatient (BNV) | payer OTHER, SELFPAY | PROVIDERS: Admitting Provider Nurse Practitioner Acute Care; Emergency Provider Emergency Medicine; PCP Internal Medicine Geriatric Medicine; Visit Provider Nurse Practitioner Acute Care | DX: J10.1 Influenza due to other identified influenza virus with other respiratory manifestations (principal) | CPT/HCPCS: 99232 ==

== ENCOUNTER 2024-07-05 12:43 | Outpatient (REF) | payer OTHER, SELFPAY ==
[2024-07-05 13:53] LABS: Anion Gap 8 (12-20); Blood Urea Nitrogen 14 mg/dL (9-16); Calcium 9.1 mg/dL (8.4-10.2); Carbon Dioxide 33 mmol/L (22-29); Chloride 102 mmol/L (96-108); Estimated Glomerular Filt Rate > 60; Glucose Random 89 mg/dL (60-115); Sodium 139 mmol/L (135-145)
--- OUTSIDE RECORDS SUMMARY | 2024-07-05 15:45 | XMS_ITS | Clinical Summary ---
Author Organization [employer] Address [address] [place] [address] [address] [place] [address] Care Team Providers Care Rn Postpartum Name Role Phone Name, Jamie DURHAM Primary Care Provider [phone] Allergies Active Allergy Reactions Criticality Noted Date Comments Pollen Extract 07/02/2011 Other reaction(s): Runny Nose/Rhinitis Watery eyes, sneezing Medications albuterol 108 (90 Base) MCG/ACT inhaler Inhale 2 puffs every 4 (four) hours if needed. 06/04/19 22 Active hydrocortisone (Proctosol HC) 2.5 % rectal cream Insert into the rectum 2 times daily. 28 g 2 11/26/19 23 Active furosemide (Lasix) 40 MG tablet Take 40 mg by mouth Once per day. Active tamsulosin (Flomax) 0.4 MG 24 hr capsule TAKE 2 CAPSULES BY MOUTH EVERY DAY 30 MINUTES AFTER THE SAME MEAL 180 capsule 1 11/10/19 24 Active atorvastatin (Lipitor) 20 MG tabletIndicati ons:Scrotal pain,Hydrocele in adult TAKE 1 TABLET(20 MG) BY MOUTH IN THE MORNING 90 tablet 01/06/20 24 Active naproxen (Naprosyn) 500 MG tabletIndicati ons:Back pain, unspecified back location, unspecified back pain laterality, unspecified chronicity TAKE 1 TABLET BY MOUTH TWICE DAILY WITH FOOD 60 tablet 3 01/11/20 24 Active gabapentin (Neurontin) 300 MG capsule TAKE 1 CAPSULE(300 MG) BY MOUTH THREE TIMES DAILY 84 capsule 2 04/04/20 24 Active losartan (Cozaar) 50 MG tablet Take 1 tablet (50 mg) by mouth Once per day. 30 tablet 11 04/06/20 24 025 Active finasteride (Proscar) 5 MG tablet Take 1 tablet by mouth Once per day. 05/28/19 25 Active timolol (Timoptic) 0.5 % ophthalmic solution Administer 1 drop into the left eye in the morning. 06/15/19 25 Active solifenacin (VESIcare) 5 MG tablet Take 1 tablet by mouth Once per day. 04/01/20 24 Active ketotifen (Zaditor) 0.025 % ophthalmic solution INSTILL 1 DROP IN BOTH EYES TWICE DAILY NEEDED 07/04/19 025 Discontinued(Me d list cleanup (will not trigger notification to Pharmacy)) latanoprost (Xalatan) 0.005 % ophthalmic solution PLACE 1 DROP BOTH EYES AT BEDTIME 01/25/20 22 025 Discontinued(Me d list cleanup (will not trigger notification to Pharmacy)) cefuroxime (Ceftin) 500 MG tablet Take 500 mg by mouth 2 times daily. 06/14/19 24 025 Discontinued(Me d list cleanup (will not trigger notification to Pharmacy)) Active Problems Problem Noted Date Diagnosed Date [...] Blood work normal including screening for subclinical [place] and 24 urine metanephrines. His MRI was [...] stone 10/09/2017 Overview (09/15/2023): He follows with [facility] Has renal stones BPH Benign non [...] 09/15/2023 Overview (03/13/2023): One episode uncomplicated at [facility] 09/2016 Normal colonoscopy the same year Repeat colonoscopy recommended in 10 years Cervical radiculitis 03/18/2012 024 Neck pain 03/18/2012 03/13/2023 Low back pain 09/24/2009 07/02/2023 Groin pain 09/24/2009 03/13/2023 Neuropathic pain syndrome (non-herpetic) 09/24/2009 03/13/2023 Encounters Date Type Department Care Team Description 07/05/2024 Orders Only [facility] [address] [place] [phone] Jamie Garcia MD 07/04/2024 Telephone [facility] [address] [place] [phone] Jamie Garcia MD Verbal Order 07/04/2024 Patient Outreach [facility] [address] [place], [place] [phone] Jamie Garcia MD Transition Of Care (Tcm) (HDF scheduled) 07/04/2024 Telephone [facility] [address] [place] [address] Jamie Garcia MD Hospital Follow-up 06/27/2024 Orders Only [facility] External Provider, [facility] 06/08/2024 Refill [facility] [address] [place], [place] [address]gabby LeachkeJITENDRA [address] Name, MD Jamie 04/26/2024 Telephone [facility] [place] [address] Name, MD Jamie No Show 04/24/2024 Refill [facility] [place] [address] Name, MD Jamie Essential hypertension; Hyponatremia; Back pain, unspecified back location, unspecified back pain laterality, unspecified chronicity 04/06/2024 11:00 AM EST Office Visit [facility] [place] [address] Name, MD Jamie Essential hypertension (Primary Dx); Hyponatremia; Vaccine refused by patient; Healthcare maintenance from Last 3 Months Immunizations Name Administration [...] Care Team (Late st Contact Info) Description 07/08/2024 2:00 PM EST Office Visit [facility] [address] [place] [phone] Macy Amador NP [address] [place] [address] 08/11/2024 11:15 AM EDT Office Visit [facility] [address] [place] [address] Name, MD Jamie [address] [place] [address] Health Maintenance Due Date Last Done Comments [...] Procedure Name Priority Date/Time Associated Diagnosis Comments BASIC METABOLIC PANEL Routine 07/05/2024 11:02 AM EST XR CHEST 1 VIEW Routine 06/29/2024 7:55 AM EST CTA CHEST PE PROTOCAL Routine 06/27/2024 1:24 PM EST VENOUS BLOOD GAS Routine 06/27/2024 11:5 8 [...] Relevant to Health Maintenance Results * (ABNORMAL) Basic Metabolic Panel (07/05/2024 11:02 AM EST) Only the most recent of3 resultswithin the time period is included. Sodium 139 135 - 145 mmol/L [facility] Potassium 4.0 3.3 - 5.1 mmol/L [facility] Chloride 102 96 - 108 mmol/L [facility] Carbon Dioxide 33(H) 22 - 29 mmol/L [facility] Anion Gap 8(L) 12 - 20 [facility] Urea Nitrogen (BUN) 14 9 - 16 mg/dL [facility] Creatinine, Serum 0.69 0.5 - 1.4 mg/dL [facility] Estimated Glomerular Filt Rate >60 [facility] Comment:Chronic Kidney Disea se: Estimated GFR < 60 mL/min/1.99x1Ftmctw Kidney Disease: Estimated GFR < 15 mL/min/1.73m2 Glucose 89 60 - 115 mg/dL [facility] Calcium 9.1 8.4 - 10.2 mg/dL [facility] 07/05/2024 11:0 2 AM EST 07/05/2024 12:45 PM EST us Jamie Name LAB BLOOD ORDERABLES Final Resul t [facility] [address] [place] [address] [phone] * XR Chest 1 View (06/29/2024 7:55 AM EST) Anatomical Region Laterality Modality Chest Radiographic Iliana ging 06/29/2024 7:55 AM EST Narrative 06/29/2024 8:40 AM EST ? [facility] ?[address] ?[place] [address] ?XRay Report ? Signed ? Patient: Christopher,Ifeanyi A ?MR#: [id number] ?? [id number] ? : 1950 ?Acct:[id number] ? Age/Sex: 73 / M ?ADM Date: 02/24/25 ? Loc: HO.IMC ?473-1 ? Attending Dr: María Phan COLD [employer]ESS OPERATOR ? Ordering Physician: María Phan NP ?? Date of Service: 06/29/24 ?? Procedure(s): XR chest 1V ?? Accession Number(s): [id number] ? cc: Jose,Jamie DURHAM; María Phan NP ? EXAMINATION: ?? XR CHEST ? CLINICAL INFORMATION: ?? re-eval ? COMPARISON: ?? June 27, 2024. ? TECHNIQUE: ?? Frontal view of the chest was obtained. ? FINDINGS: ?? Deformity of the thorax due to the severe scoliosis. Confluent opacity ?? in the right lower and left lower hemithoraces. Cardiomediastinal ?? silhouette overlaps the left hemithorax. ?? No gross pneumothorax. ?? No gross pleural effusion. ? XR/XR chest 1V ?? IMPRESSION: ?? Consider multifocal pneumonia, lower lung lobes. ? Electronically signed by: ??Fabian Chambers MD ??06/29/2024 08:37 AM ?? EST RP ? Dictated By: ?Fabian Sage MD ? Signed By: ?<Electronically signed by Fabian Elizabeth MD in OV> ? 06/29/24 0837 ? DD/ 0755 ? TD/TT: 06/29/24 0813 ? Compressor Stations Superintendent: ? Procedure Note Donalbertter, Image - 06/29/2024 [place] [address] XRay Report Signed Patient: Ifeanyi White AMR#: [id number] : 1Acct:[id number] Age/Sex: 73 / MADM Date: 06/27/24 Loc: [facility] 473-[address]: María Phan NP Ordering Physician: María Phan NP Date of Service: 06/29/24 Procedure(s): XR chest 1V Accession Number(s): [id number] cc: Jamie Garcia MD; María Phan NP EXAMINATION: XR CHEST CLINICAL INFORMATION: re-eval COMPARISON: June 27, 2024. TECHNIQUE: Frontal view of the chest was obtained. FINDINGS: Deformity of the thorax due to the severe scoliosis. Confluent opacity in the right lower and left lower hemithoraces. Cardiomediastinal silhouette overlaps the left hemithorax. No gross pneumothorax. No gross pleural effusion. XR/XR chest 1V IMPRESSION: Consider multifocal pneumonia, lower lung lobes. Electronically signed by: Fabian Chambers MD 06/29/2024 08:37 AM EST RP Dictated By: Fabian Sage MD Signed By: <Electronically signed by Fabian Elizabeth MDin OV> 06/29/24 0837 DD/ 0755 TD/TT: 06/29/24 0813 Compressor Stations Superintendent: [facility] External Provider IMG XR PROCEDURES Final Result * CTA Chest PE Protocal (06/27/2024 1:24 PM EST) Anatomical Region Laterality Modality Body, Chest Computed Tomogra phy 06/27/2024 1:24 PM EST Narrative 06/27/2024 2:06 PM EST ? [facility] ?[address] ?[place] [address] ? CT Scan Report ? Signed ? Patient: Ifeanyi White ?MR#: [id number] ?? [id number] ? : 1950 ?Acct:[id number] ? Age/Sex: 73 / M ?ADM Date: 06/27/24 ? Loc: HO.ED ? Attending Dr: ? Ordering Physician: Ailin Gonzales ?? Date of Service: 06/27/24 ?? Procedure(s): CT angio chest PE protocol ?? Accession Number(s): [id number] ? cc: Ailin Gonzales; Name,Jamie DURHAM ? Report Number: ?? [id number]: Total DLP = ??209.00 mGy-cm ?? EXAMINATION: ?? CT ANGIOGRAM CHEST ? CLINICAL INFORMATION: ?? Hypoxia. Hemoptysis. ? COMPARISON: ?? None available. ? TECHNIQUE: ?? Multiple axial images were obtained through the chest after the ?? administration of 65 mL of Omnipaque 350 intravenous contrast. ?? Extensive vascular post-processing including two-dimensional and ?? three-dimensional reformatted images were created and reviewed on an ?? independent workstation. ? This CT examination was performed using dose optimization techniques as ?? appropriate, variously including the following: ?? *Automated exposure control ?? *Adjustment of mA and/or kV according to patient size (this includes ?? techniques or standardized protocols for targeted exams where dose is ?? matched to indication/reason for exam; i.e. extremities or head) ?? *Use of iterative reconstruction technique ?? DLP: 209 mGy centimeter. ? FINDINGS: ?? No intraluminal filling defects within the main pulmonary artery or its ?? main branches. ?? No aneurysm or dissection, thoracic aorta. ?? Limited evaluation due to patient's positioning on the CT scanner ?? secondary to severe dextroconvex thoracic scoliosis and deformity of ?? the thorax/rib cage. ?? Bilateral pleural effusion, small to moderate volume. ?? Pulmonary mosaic pattern. ?? Patchy pulmonary groundglass bilaterally extending from the perihilar ?? region. ?? No pneumothorax. ?? No honeycombing. ?? 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 scoliosis. ?? Small pericardial effusion. ? CT/CT angio chest PE protocol ?? IMPRESSION: ?? No acute pulmonary artery emboli. ?? No thoracic aortic aneurysm or dissection. ?? Posterior mild interstitial edema and bilateral pleural effusions with ?? small pericardial effusion. Superimposed acute inflammatory versus ?? infectious process cannot be excluded. ?? Severe scoliosis. ? Fleischner guidelines were followed. ? Electronically signed by: ??Fabian Chambers MD ??06/27/2024 02:03 PM ?? EST RP ? Dictated By: ?Fabian Sage MD ? Signed By: ?<Electronically signed by Fabian Elizabeth MD in OV> ? 06/27/24 1403 ? DD/ 1324 ? TD/TT: 06/27/24 1355 ? Compressor Stations Superintendent: ? Procedure Note Marquez, [place] - 06/27/[address] [address] [address] Scan Report Signed Patient: Ifeanyi White [facility]#: [id number] : 1950cct:[id number] Age/Sex: 73 / MADM Date: 06/27/24 Loc: HO.ED Attending Dr: Ordering Physician: Aiiln Gonzales Date of Service: 06/27/24 Procedure(s): CT angio chest PE protocol Accession Number(s): [id number] cc: Ailin Gonzales; Name,Jamie DURHAM Report Number: [id number]: Total DLP = 209.00 mGy-cm EXAMINATION: CT ANGIOGRAM CHEST CLINICAL INFORMATION: Hypoxia. Hemoptysis. COMPARISON: None available. TECHNIQUE: Multiple axial images were obtained through the chest after the administration of 65 mL of Omnipaque 350 intravenous contrast. Extensive vascular post-processing including two-dimensional and three-dimensional reformatted images were created and reviewed on an independent workstation. This CT examination was performed using dose optimization techniques as appropriate, variously including the following: *Automated exposure control *Adjustment of mA and/or kV according to patient size (this includes techniques or standardized protocols for targeted exams where dose is matched to indication/reason for exam; i.e. extremities or head) *Use of iterative reconstruction technique DLP: 209 mGy centimeter. FINDINGS: No intraluminal filling defects within the main pulmonary artery or its main branches. No aneurysm or dissection, thoracic aorta. Limited evaluation due to patient's positioning on the CT scanner secondary to severe dextroconvex thoracic scoliosis and deformity of the thorax/rib cage. Bilateral pleural effusion, small to moderate volume. Pulmonary mosaic pattern. Patchy pulmonary groundglass bilaterally extending from the perihilar region. No pneumothorax. No honeycombing. 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 Small pericardial effusion. CT/CT angio chest PE protocol IMPRESSION: No acute pulmonary artery emboli. No thoracic aortic aneurysm or dissection. Posterior mild interstitial edema and bilateral pleural effusions with small pericardial effusion. Superimposed acute inflammatory versus infectious process cannot be excluded. Severe scoliosis. Fleischner guidelines were followed. Electronically signed by: Fabian Chambers MD 06/27/2024 02:03 PM [facility] Dictated By: Fabian Sage MD Signed By: <Electronically signed by Nishi Garcia OV> 06/27/24 1403 DD/ 1324 TD/TT: 06/27/24 1355 Compressor Stations Superintendent: [facility] External Provider IMG CT PROCEDURES Final Result * (ABNORMAL) VENOUS BLOOD GAS (06/27/2024 11:58 AM EST) VBG pH 7.43 7.32 - 7.43 [facility] Comment:METER #: [id number] additional_comment: CbAbliai VBG PCO2 47 mmHg [facility] Comment:METER #: [id number] additional_comment: CbAbliai VBG PO2 54 mmHg [facility] Comment:METER #: [id number] additional_comment: CbAbliai VBG Base Excess 6.3 mmol/L [facility] Comment:METER #: [id number] additional_comment: CbAbliai VBG HCO3 31(H) 22 - 26 mmol/L [facility] Comment:METER #: [id number] additional_comment: CbAbliai O2 Sat, [place] 87.0 % [facility] Comment:METER #: [id number] additional_comment: CbAbliai 06/27/2024 11:5 8 AM EST 06/27/2024 12:15 PM EST Generic External Data Provider LAB BLOOD ORDERAB LES Final Result Performing Organization Address City/State/[facility] Co de Phone Number [facility] [address] [place] [phone] * Prothrombin Time-INR (06/27/2024 11:37 AM EST) Prothrombin Time 11.8 10.9 - 12.4 SEC [facility] INTERNATIONAL NORM RATIO 1.0 0.9 - 1.1 [facility] Comment:INTERNATIONAL NORMAL IZED RATIO (INR) [...] ORDERAB LES Final Result Performing Organization Address [facility] de Phone Number [facility] [address] [place] [phone] * Hold Green Gel (06/27/2024 11:36 AM EST) Only the most recent of2 resultswithin the time period is included. Hold Green Gel See Note [facility] Comment:Specimen held untest ed for 24 hours; Call to requestChemistry testing. 06/27/2024 11:3 6 AM EST 06/27/2024 12:01 PM EST Generic External Data Provider HISTORICAL/NON OR DERABLE LABS Final Result Performing Organization Address [facility] de Phone Number [facility] [address] [place] [phone] * Hold Lavender - Possible Hematology (06/27/2024 11:36 AM EST) Only the most recent of2 resultswithin the time period is included. Hold Lavender - Possible Hematololgy SEE NOTE [facility] Comment:Specimen will be hel d untested for 8 hours. Call Hematologyif testing is desired. 06/27/2024 11:3 6 AM EST 06/27/2024 12:01 PM EST Generic External Data Provider HISTORICAL/NON OR DERABLE LABS Final Result Performing Organization Address [facility] de Phone Number [facility] [address] [place] [phone] * Lactic Acid (06/27/2024 11:36 AM EST) [facility] Lactic Acid 1.0 0.5 - 2.0 mmol/L [facility] 06/27/2024 11:3 6 AM EST 06/27/2024 11:45 AM EST Generic External Data Provider LAB BLOOD ORDERAB LES Final Result Performing Organization Address [facility]/ZIP Co de Phone Number [facility] [address] [place] [phone] * High Sensitivity Troponin I (06/27/2024 10:42 AM EST) [facility] TROPONIN I HIGH SENSITIVITY 21.0 <3.5 - 35.0 ng/L [facility] Comment:The [place] high sens itivity Troponin-I results should beused in conjunction with other diagnostic information suchas ECG, clinical observations and information, and patientsymptoms to aid in the diagnosis of OR. 06/27/2024 10:4 2 AM EST 06/27/2024 10:45 AM EST [employer] External Data Provider LAB BLOOD ORDERAB LES Final Result Performing Organization Address [facility] Co de Phone Number [facility] [address] [place] [phone] * (ABNORMAL) SARS-CoV-2 RNA, Influenza A/B, and RSV RNA, Ql NAAT (06/27/2024 10:42 AM EST) Pathologist [facility] Influenza A PCR POSITIVE(A) Negative [facility] Influenza B PCR NEGATIVE Negative [facility] Resp Syncy Virus RNA Qual PCR NEGATIVE Negative [facility] SARS COV2 PCR NEGATIVE Negative [facility] Comment:All test results mus t be [...] use by authorized laboratories.Testing performed on the [email or web address] GeneXpert utilizingreal-time RT-PCR.All SARS CoV2 and positive influenza A/B results arereported to [facility]. 06/27/2024 10:4 2 AM EST 06/27/2024 10:45 AM EST us Generic External Data Provider LAB MICROBIOLOGY - GENERAL ORDERABLES Final Result [facility] [address] [place] [address] [phone] * (ABNORMAL) CBC auto differential (06/27/2024 10:42 AM EST) White Blood Count 3.2(L) 4.8 - 10.8 X10*3/uL [facility] Red Blood Count 4.31(L) 4.60 - 5.80 X10*6/uL [facility] Hemoglobin 13.7(L) 14.0 - 18.0 g/dl [facility] Hematocrit 42.1 42.0 - 52.0 % [facility] Mean Corpuscular Volume 97.7 80.0 - 98.0 fL [facility] Mean Corpuscular Hemoglobin 31.8 27.0 - 33.0 pg [facility] Mean Corpuscular HGB Conc 32.5 31.0 - 36.0 g/dl [facility] Red Cell Distribution Width 12.6 11.0 - 16.0 % [facility] Platelet Count 102(L) 160 - 400 X10*3/uL [facility] Comment:Test was verified by repeat analysis. Mean Platelet Volume 9.9 9.4 - 12.4 fL [facility] Neutrophils Percent Auto 65.1 45 - 73 % [facility] Imm Gran Pct Auto 0.6(H) 0.0 - 0.4 % [facility] Lymphocytes Percent Auto 23.5 20 - 40 % [facility] Monocytes Percent Auto 10.5 2 - 11 % [facility] Eosinophils Percent Auto 0.0 0 - 4 % [facility] Basophils Percent Auto 0.3 0 - 2 % [facility] NRBC Pct Auto 0.0 0.0 - 0.2 /100WBC [facility] Neutrophils Absolute Auto 2.1 2.0 - 8.3 x10*3/uL [facility] Imm Gran Abs Auto 0.02 0.00 - 0.03 X10*3/uL [facility] Lymphocytes Absolute Auto 0.8(L) 1.2 - 4.9 X10*3/uL [facility] Monocytes Absolute Auto 0.3 0.1 - 1.2 X10*3/uL [facility] Eosinophils Absolute Auto 0.0 0.0 - 0.4 X10*3/uL [facility] Basophils Absolute Auto 0.0 0.0 - 0.2 X10*3/uL [facility] NRBC Abs Auto 0.000 0.0 - 0.012 X10*3/uL [facility] 06/27/2024 10:4 2 AM EST 06/27/2024 10:45 AM EST us Generic External Data Provider LAB BLOOD ORDERAB LES Final Result [facility] [address] [place] [phone] * B Type Natriuretic Peptide (BNP) (06/27/2024 10:42 AM EST) B Type Natriuretic Peptide 41 <100 pg/mL [facility] Comment:For those patients w ho are being treated with Natrecor(nesiritide, recombinant BNP), BNP testing should beperformed at least two hours post treatment in order toensure that only endogenous levels of BNP are detected. 06/27/2024 10:4 2 AM EST 06/27/2024 10:45 AM EST us Generic External Data Provider LAB BLOOD ORDERAB LES Final Result Performing Organization Address [facility] Phone Number [facility] [address] [place] [phone] * Hepatic Function Panel (06/27/2024 10:42 AM EST) Bilirubin, Total 0.2 0.0 - 1.0 mg/dL [facility] Bilirubin, Direct <0.2 0.0 - 0.5 mg/dL [facility] Aspartate Amino Transferase 28 5 - 37 U/L [facility] Alanine Aminotransferase 10 0 - 40 U/L [facility] Total Protein 6.6 6.5 - 8.0 g/dL [facility] Albumin Level 3.6 3.5 - 5.0 g/dL [facility] Alkaline Phosphatase 84 39 - 117 U/L [facility] 06/27/2024 10:4 2 AM EST 06/27/2024 10:45 AM EST Generic External Data Provider LAB BLOOD ORDERAB LES Final Result Performing Organization Address [facility] Phone Number [facility] [address] [place] [phone] * XR Chest 2 Views (06/27/2024 9:55 AM EST) Anatomical Region Laterality Modality Chest Radiographic Iliana ging 06/27/2024 9:55 AM EST Narrative 06/27/2024 11:05 AM EST ? [facility] ?[address] ?[place] [address] ?XRay Report ? Signed ? Patient: Christopher,Ifeanyi A ?MR#: [id number] ?? [id number] ? : 1950 ?Acct:[id number] ? Age/Sex: 73 / M ?ADM Date: 02/24/25 ? Loc: HO.ED ? Attending Dr: ? Ordering Physician: Angy Abbott DO ?? Date of Service: 06/27/24 ?? Procedure(s): XR chest 2V ?? Accession Number(s): [id number] ? cc: Angy Abbott DO; Name,Jamie DURHAM [...] ??Kaiser Muller MD ??06/27/2024 11:02 AM EST ? Dictated By: ?Kaiser Muller MD ? Signed By: ?<Electronically signed by Kaiser Muller MD in OV> ?02/24/25 1102 ? DD/ 0955 ? TD/TT: 06/27/24 1059 ? Compressor Stations Superintendent: ? Procedure Note Marquez, Image - 06/27/2024 [place] [address] XRay Report Signed Patient: Ifeanyi White AMR#: [id number] : 1950cct:[id number] Age/Sex: 73 / MADM Date: 06/27/24 Loc: HO.ED Attending Dr: Ordering Physician: Angy Abbott DO Date of Service: 06/27/24 Procedure(s): XR chest 2V Accession Number(s): [id number] cc: Angy Abbott DO; Name,Jamie DURHAM EXAMINATION: [...] 06/27/24 1102 DD/ 0955 TD/TT: 06/27/24 1059 Compressor Stations Superintendent: [facility] External Provider IMG XR PROCEDURES Final Result * Lipid Panel, Standard (04/11/2022 9:26 AM EST) Cholesterol, Total 149 <200 mg/dL [employer] [place] [facility] HDL Cholesterol 86 > OR = 40 mg/dL [facility] [facility] [place] [facility] Triglycerides 54 <150 mg/dL [employer] [place] [facility] LDL Cholesterol 50 mg/dL (calc) [employer] Comment: Reference range: <100 Desirable range <100 mg/dL for primary prevention; ?? <70 mg/dL for patients with CHD or diabetic patients with > or = 2 CHD risk factors. LDL-C is now calculated using the Fredy-Jesus calculation, which is a validated novel method providing better accuracy than the Friedewald equation in the estimation of LDL-C. Fredy SALAMANCA et al. JEAN. 2013;310(19): 6588-5336 (http://education.[employer].Link Medicine/faq/IIV133) Chol/HDLC Ratio 1.7 <5.0 (calc) [employer] Non-HDL Cholesterol 63 <130 mg/dL (calc) [employer] Comment: For patients with diabetes plus 1 major ASCVD risk factor, treating to a non-HDL-C goal of <100 mg/dL (LDL-C of <70 mg/dL) is considered a therapeutic option. Blood Venous blood specimen / Unknown 04/11/2022 9:26 AM EST 04/11/2022 9:26 AM EST Narrative [facility] - 04/11/2022 9:46 PM EST FASTING:YES FASTING: YES us Jamieeric Garcia MD LAB BLOOD ORDERABLES Final Resul t [facility] [address], [place] [address] [employer] [facility] [address], [place] [address] * Hm Colonoscopy (11/17/2016 12:06 PM EDT) Colonoscopy Normal Normal Narrative Maria Esther Zhao - 11/17/2016 12:06 PM EDT Recommended 10 years follow up Historical Provider HEALTH MAINTENANCE Final Result from Last 3 Months or Most Recently Relevant to Health Maintenance Insurance [facility] Care Teams Rn Postpartum Relationship Specialty Start Date End Date Name, MD Jamie [address] [place] [address] PCP - General Family Medicine 10/29/15
--- OUTSIDE RECORDS SUMMARY | 2024-07-05 15:45 | XMS_ITS | Encounter Summary ---
Author Organization [employer] Address 75 [facility] 7t [place] [address] Care Team Providers Care Retanned Leather Roller Name Role Phone Name, Jamie DURHAM Primary Care Provider [phone] Encounter Details Date Type Department Care Team (Late st Contact Info) Description 07/05/2024 Orders Only [facility] MED[facility]INE 230 [place], [place] [phone] Name, MD Jamie 230 [place] [address] Social History Tobacco Use Types Packs/Day Years [...] is your housing situation today? I have taylorjuanjo frausto 07/02/[address] you [...] Description 07/08/2024 2:00 PM EST Office Visit [facility] [address] [place] [address] AppramMacy NP 230 [place] [address] 08/11/2024 11:15 AM EDT Office Visit [address] [address] Name, MD Jamie [address] [place] [address] documented as of this encounter Procedures Procedure Name Priority Date/Time Associated Diagnosis Comments BASIC METABOLIC PANEL Routine 07/05/2024 11:02 AM EST documented in this encounter Results * (ABNORMAL) Basic Metabolic Panel (07/05/2024 11:02 AM EST) Sodium 139 135 - 145 mmol/L [facility] Potassium 4.0 3.3 - 5.1 mmol/L [facility] Chloride 102 96 - 108 mmol/L [facility] Carbon Dioxide 33(H) 22 - 29 mmol/L [facility] Anion Gap 8(L) 12 - 20 [facility] Urea Nitrogen (BUN) 14 9 - 16 mg/dL [facility] Creatinine, Serum 0.69 0.5 - 1.4 mg/dL [facility] Estimated Glomerular Filt Rate >60 [facility] Comment:Chronic Kidney Disea se: Estimated GFR < 60 mL/min/[id number] Kidney Disease: Estimated GFR < 15 mL/min/1.73m2 Glucose 89 60 - 115 mg/dL [facility] Calcium 9.1 8.4 - 10.2 mg/dL [facility] 07/05/2024 11:0 2 AM EST 07/05/2024 12:45 PM EST Jamie Garcai MD LAB BLOOD ORDERABLES Final Resul t [facility] [address] [place] [address] [phone] documented in this encounter Visit Diagnoses Not on filedocumented in this encounter Additional Health Concerns Assessment Noted Time PHQ-9 Depression Total Score: 0 07/02/19 24 10:12 AM EST documented as of this encounter Care Teams Retanned Leather Roller Relationship Specialty Start Date End Date Name, MD Jamie [address] [place] [address] PCP - General Family Medicine 10/29/15 documented as of this encounter
--- OUTSIDE RECORDS SUMMARY | 2024-07-05 15:45 | XMS_ITS | Encounter Summary ---
Author Organization [employer] Address 75 [facility] 7t [place] [address] Care Team Providers Care Digital Marketing Specialist Name Role Phone Name, Jamie DURHAM Primary Care Provider [phone] Encounter Details Date Type Department Care Team (Late st Contact Info) Description 06/14/2023 Abstract [facility] MEDICINE 230 [place], [place] [phone] Name, MD Jamie 230 [place] [address] Social History Tobacco Use Types Packs/Day Years [...] Description 07/08/2024 2:00 PM EST Office Visit [facility] [address] [place] [address] Macy Amador NP 230 [place] [address] 08/11/2024 11:15 AM EDT Office Visit [facility] [address] [place] [address] Name, MD Jamie [address] [place] [address] documented as of this encounter Visit Diagnoses Not on filedocumented in this encounter Care Teams Digital Marketing Specialist Relationship Specialty Start Date End Date Name, MD Jamie [address] [place] [address] PCP - General Family Medicine 10/29/15 documented as of this encounter
--- OUTSIDE RECORDS SUMMARY | 2024-07-05 15:45 | XMS_ITS | Encounter Summary ---
Author Organization [employer] Address 75 [facility] 7t [place] [address] Care Team Providers Care Computer Artist Name Role Phone Name, Jamie DURHAM Primary Care Provider [phone] Reason for Visit * Reason Comments Transition Of Care (Tcm) HDF scheduled Encounter Details Date Type Department Care Team ([facility] st Contact Info) Description 07/04/2024 Patient Outreach [facility] [address] [place], [place] [phone] Name, MD Jamie [address] [place] [address] Transition Of Care (Tcm) (HDF scheduled) Social History Tobacco Use Types Packs/Day Years [...] AM EDT documented as of this encounter Miscellaneous Notes * Significant Event - Dia Jama - 07/04/2024 9:37 AM EST 07/04/24 0918 Hospital Discharges and Admission for [facility] Type of Visit Hospital Admission Date of Admission/Visit 06/08/24 Date of Discharge 06/30/24 [facility] Diagnosis Pneumonia, Flu Disposition Discharged Home Follow-Up Actions Follow-Up Needed Provider appointment Follow-Up Outcome Booked Appointment;Spoke to Caregiver Initial Contact Date 07/04/24 SAM Soriano placed outbound call to patient for HDF outreach. Patient's name and were confirmed. Patient educated on the importance of follow up with provider following inpatient admission. Patient offered an HDF appt. Patient is agreeable to an appointment and has been scheduled for 07/08 at2:00pm with NIGHTCLUB MANAGER, Apprakaterin. Patient provided with education on contacting the Health Center with any questions or concerns prior to the scheduled appointment. Patient educated on extended clinic hours onMondays and Wednesdays, and Walk-In Urgent Care Located in [facility]. Patient provided with after-hours line for [facility], , which offer night time triage service and option to transfer to harpooner provider if needed. CC scanned discharge summary into patient's chart. Biggest concern for appointment at this time is no concerns. Appropriate screenings completed in anticipation of appointment. documented in this encounter Plan of Treatment Upcoming Encounters Date Type Department Care Team (Late st Contact Info) Description 07/08/2024 2:00 PM EST Office Visit [facility] MEDICINE [address] [place] [address] Macy Amador NP 230 [place] [address] 08/11/2024 11:15 AM EDT Office Visit [facility] MEDICINE [address] [place] [address] Name, MD Jamie [address] [place] [address] documented as of this encounter Visit Diagnoses Not on filedocumented in this encounter Additional Health Concerns Assessment Noted Time PHQ-9 Depression Total Score: 0 07/02/19 24 10:12 AM EST documented as of this encounter Care Teams Computer Artist Relationship Specialty Start Date End Date NameJamie MD [address] [place] [address] PCP - General Family Medicine 10/29/15 documented as of this encounter
--- OUTSIDE RECORDS SUMMARY | 2024-07-05 15:45 | XMS_ITS | Encounter Summary ---
Author Organization [employer] Address 75 [facility] 7t [place] [address] Care Team Providers Care Biodiesel Plant Superintendent Name Role Phone Name, Jamie DURHAM Primary Care Provider [phone] Reason for Visit * Reason Comments Med Refill Encounter Details Date Type Department Care Team ([facility] st Contact Info) Description 06/08/2024 Refill [facility] MEDICINE 230 [place], [place] [phone] Name, MD Jamie [address] [place] [address] Social History Tobacco Use Types Packs/Day Years [...] Description 07/08/2024 2:00 PM EST Office Visit [facility] MEDICINE [address] [place] [address] Macy Amador NP [address] [place] [address] 08/11/2024 11:15 AM EDT Office Visit [address] [address] NameJamie MD [address] [place] [address] documented as of this encounter Visit Diagnoses Not on filedocumented in this encounter Additional Health Concerns Assessment Noted Time PHQ-9 Depression Total Score: 0 07/02/19 24 10:12 AM EST documented as of this encounter Care Teams Biodiesel Plant Superintendent Relationship Specialty Start Date End Date Name, MD Jamie [address] [place] [address] PCP - General Family Medicine 10/29/15 documented as of this encounter
--- OUTSIDE RECORDS SUMMARY | 2024-07-05 15:45 | XMS_ITS | Encounter Summary ---
Author Organization [employer] Address 75 [facility] 7t [place] [address] Care Team Providers Care Camp Dishwasher Name Role Phone Name, Jamie DURHAM Primary Care Provider [phone] Reason for Visit * Reason Onset Date Comments Verbal Order 07/04/2024 Encounter Details Date Type Department Care Team ([facility] st Contact Info) Description 07/04/2024 Telephone [facility] MEDICINE 230 [place], [place] [phone] Name, MD Jamie 230 [place] [address] Verbal Order Social History Tobacco Use Types Packs/Day Years [...] as of this encounter Miscellaneous Notes * Telephone Encounter - Kait Ritter RN - 07/04/2024 4:20 PM EST TC placed to [facility] at the [facility] to give VO for the pt to have alf services twice a week for two weeks and then once a week for seven weeks if the pt requires it. * Telephone Encounter - Cory Vanessa - 07/04/2024 4:14 PM EST TC from [facility] with [facility] requesting verbal orders for alf services 2x a week for 2x weeks and decrease 1x a week for 7x weeks if needed .. Avtar [phone] documented in this encounter Plan of Treatment Upcoming Encounters Date Type Department Care Team (Late st Contact Info) Description 07/08/2024 2:00 PM EST Office Visit [facility] MEDICINE [address] [place] [address] Appram, LILY Cavazos 230 [place] [address] 08/11/2024 11:15 AM EDT Office Visit [facility] MEDICINE [address] [place] [address] Name, MD Jamie [address] [place] [address] documented as of this encounter Visit Diagnoses Not on filedocumented in this encounter Additional Health Concerns Assessment Noted Time PHQ-9 Depression Total Score: 0 07/02/19 24 10:12 AM EST documented as of this encounter Care Teams Camp Dishwasher Relationship Specialty Start Date End Date Name, MD Jamie [address] [place] [address] PCP - General Family Medicine 10/29/15 documented as of this encounter
--- OUTSIDE RECORDS SUMMARY | 2024-07-05 15:45 | XMS_ITS | Encounter Summary ---
Author Organization [employer] Address 75 [facility] 7t [place] [address] Care Team Providers Care Cardio Clinician Name Role Phone Name, Jamie DURHAM Primary Care Provider [phone] Reason for Visit * Reason Onset Date Comments Hospital Follow-up 07/04/2024 Encounter Details Date Type Department Care Team ([facility] st Contact Info) Description 07/04/2024 Telephone [facility] MEDICINE 230 [place], [place] [phone] Name, MD Jamie 230 [place] [address] Hospital Follow-up Social History Tobacco Use Types Packs/Day Years [...] encounter Miscellaneous Notes * Telephone Encounter - Carol Bland - 07/04/2024 8:35 AM EST Tc from pt requesting a HDF appt. Hospital: [facility] Date of admission: 06/28 Discharge date: 06/30 Diagnosed: pneumonia, flu *Send message to [place] Clinical Care Coordinators [phone] polish documented in this encounter Plan of Treatment Upcoming Encounters Date Type Department Care Team (Late st Contact Info) Description 07/08/2024 2:00 PM EST Office Visit [facility] MEDICINE [address] [place] [address] Macy Amador NP 230 [place] [address] 08/11/2024 11:15 AM EDT Office Visit [facility] MED[facility] [address] [place] [address] Jamie Garcia MD [address] [place] [address] documented as of this encounter Visit Diagnoses Not on filedocumented in this encounter Additional Health Concerns Assessment Noted Time PHQ-9 Depression Total Score: 0 07/02/19 24 10:12 AM EST documented as of this encounter Care Teams Cardio Clinician Relationship Specialty Start Date End Date Name, MD Jamie [address] [place] [address] PCP - General Family Medicine 10/29/15 documented as of this encounter
--- OUTSIDE RECORDS SUMMARY | 2024-07-05 15:45 | XMS_ITS | Encounter Summary ---
Author Organization [employer] Address 75 [facility] 7t [place] [address] Care Team Providers Care Assurance Officer Name Role Phone Name, Jamie DURHAM Primary Care Provider [phone] Reason for Visit * Reason Comments Med Refill Encounter Details Date Type Department Care Team ([facility] st Contact Info) Description 08/10/2023 Refill [facility] 230 [place], [place] [phone] Name, MD Jamie [address] [place] [address] Social History Tobacco Use Types Packs/Day Years [...] Description 07/08/2024 2:00 PM EST Office Visit [facility] [address] [place] [address] Macy Amador NP [address] [place] [address] 08/11/2024 11:15 AM EDT Office Visit [address] [address] NameJamie MD [address] [place] [address] documented as of this encounter Visit Diagnoses Not on filedocumented in this encounter Additional Health Concerns Assessment Noted Time PHQ-9 Depression Total Score: 0 07/02/19 24 10:12 AM EST documented as of this encounter Care Teams Assurance Officer Relationship Specialty Start Date End Date Name, MD Jamie [address] [place] [address] PCP - General Family Medicine 10/29/15 documented as of this encounter
--- OUTSIDE RECORDS SUMMARY | 2024-07-05 15:45 | XMS_ITS | Encounter Summary ---
Author Organization [employer] [facility] Address [address] [place] [address] 7t [place] [address] Care Team Providers Care Well Puller Name Role Phone Name, Jamie DURHAM Primary Care Provider [phone] Encounter Details Date Type Department Care Team (Latest Contact Info) Description 08/24/2018 Abstract [facility] CONVERSION[facility] Dental, Provider, DDS Social History Tobacco [...] Office Visit [facility] MEDICINE [address] [place] [address] Macy Amador NP [address] [place] [address] 08/11/2024 11:15 AM EDT Office Visit [facility] MEDICINE [address] [place] [address] Name, MD Jamie [address] [place] [address] documented as of this encounter Visit Diagnoses Not on filedocumented in this encounter Care Teams Well Puller Relationship Specialty Start Date End Date Name, MD Jamie [address] [place] [address] PCP - General Family Medicine 6/27/16 documented as of this encounter
--- OUTSIDE RECORDS SUMMARY | 2024-07-05 15:45 | XMS_ITS | Encounter Summary ---
Author Organization [employer] Address 75 [facility] 7t [place] [address] Care Team Providers Care Ballistics Professor Name Role Phone Name, Jamie DURHAM Primary Care Provider [phone] Encounter Details Date Type Department Care Team ([facility] st Contact Info) Description 08/26/2023 Telephone [facility] MEDICINE 230 [place], [place] [phone] Name, MD Jamie 230 [place] [address] Social History Tobacco Use Types Packs/Day Years [...] your housing situation today? I have taylor sing 07/02/[address] you li [...] Description 07/08/2024 2:00 PM EST Office Visit [facility] MEDICINE [address] [place] [address] Macy Amador NP [address] [place] [address] 08/11/2024 11:15 AM EDT Office Visit [address] [address] Name, MD Jamie [address] [place] [address] documented as of this encounter Visit Diagnoses Not on filedocumented in this encounter Additional Health Concerns Assessment Noted Time PHQ-9 Depression Total Score: 0 07/02/19 24 10:12 AM EST documented as of this encounter Care Teams Ballistics Professor Relationship Specialty Start Date End Date Name, MD Jamie [address] [place] [address] PCP - General Family Medicine 10/29/15 documented as of this encounter
--- OUTSIDE RECORDS SUMMARY | 2024-07-05 15:45 | XMS_ITS | Encounter Summary ---
Author Organization [email or web address] [facility] Address [address] [place] [address] 7t [place] [address] Care Team Providers Care Investigations Consultant Name Role Phone Name, Jamie DURHAM Primary Care Provider [phone] Encounter Details Date Type Department Care Team (Late st Contact Info) Description 10/03/[address] [address] NameJamie MD [address] [place] [address] Social History Tobacco Use Types Packs/Day Years [...] Description 07/08/2024 2:00 PM EST Office Visit [address] [address] Macy Amador NP [address] [place] [address] 08/11/2024 11:15 AM EDT Office Visit [address] [address] Jamie Garcia MD [address] [place] [address] documented as of this encounter Procedures Procedure Name Priority Date/Time Associated Diagnosis Comments COLONOSCOPY Routine 11/17/2016 12:06 PM EDT documented in this encounter Results * Colonoscopy (11/17/2016 12:06 PM EDT) Colonoscopy Normal Normal Narrative Maria Esther Zhao - 11/17/2016 12:06 PM EDT Recommended 10 years follow up Historical Provider HEALTH MAINTENANCE Final Result documented in this encounter Visit Diagnoses Not on filedocumented in this encounter Care Teams Investigations Consultant Relationship Specialty Start Date End Date Name, MD Jamie 230 [place] [address] PCP - General Family Medicine 10/29/15 documented as of this encounter
--- OUTSIDE RECORDS SUMMARY | 2024-07-05 15:45 | XMS_ITS | Encounter Summary ---
Author Organization [employer] Address [address] [facility] 7t [place] [address] Care Team Providers Care Wood Piler Name Role Phone Name, Jamie DURHAM Primary Care Provider [phone] Encounter Details Date Type Department Care Team (Late st Contact Info) Description 06/27/2024 Orders Only [facility] External Provider, [facility] Social History Tobacco Use Types Packs/Day Years [...] Description 07/08/2024 2:00 PM EST Office Visit [facility] [address] [place] [address] [phone] AppramMacy NP [address] [place], [place] [phone] 08/11/2024 11:15 AM EDT Office Visit [facility] [address] [place] [address] Name, MD Jamie [address] [place] [address] documented as of this encounter Procedures Procedure Name Priority Date/Time Associated Diagnosis Comments XR CHEST 1 VIEW Routine 06/29/2024 7:55 [...] EST documented in this encounter Results * XR Chest 1 View (06/29/2024 7:55 AM EST) Anatomical Region Laterality Modality Chest Radiographic Iliana ging 06/29/2024 7:55 AM EST Narrative 06/29/2024 8:40 AM EST ? [facility] ?[address] ?[place] [address] ?XRay Report ? Signed ? Patient: Ifeanyi White A ?MR#: [id number] ?? [id number] ? : 1950 ?Acct:[id number] ? Age/Sex: 73 / M ?ADM Date: 06/27/24 ? Loc: HO.[facility] ?473-1 ? Attending Dr: María Phan OPERATIONS ASSISTANT ? Ordering Physician: María Phan NP ?? Date of Service: 06/29/24 ?? Procedure(s): XR chest 1V ?? Accession Number(s): [id number] ? cc: Name,Jamie DURHAM; María Phan OPERATIONS ASSISTANT ? EXAMINATION: ?? XR CHEST ? CLINICAL [...] DD/ 0755 ? TD/TT: 06/29/24 0813 ? Pararescue Manager: ? Procedure Note Marquez, Image - 06/29/[address] [address] XRay Report Signed Patient: Ifeanyi White AMR#: [id number] : 1950cct:[id number] Age/Sex: 73 / MADM Date: 06/27/24 Loc: [facility] 473-[address]: María Phan NP Ordering Physician: María Phan NP Date of Service: 06/29/24 Procedure(s): XR chest 1V Accession Number(s): [id number] cc: Jamie Garcia MD; María Phan NP [...] Fabian Chambers MD 06/29/2024 08:37 AM EST Dictated By: Fabian Sage MD Signed By: <Electronically signed by Fabian Elizabeth MDin OV> 06/29/24 0837 DD/ 0755 TD/TT: 06/29/24 0813 Pararescue Manager: us [facility] External Provider IMG XR PROCEDURES Final Result * CTA Chest PE Protocal (06/27/2024 1:24 PM EST) Anatomical Region Laterality Modality Body, Chest Computed Tomogra phy 06/27/2024 1:24 PM EST Narrative 06/27/2024 2:06 PM EST ? [facility] ?[address] ?[place], [place] [address] ? CT Scan Report ? Signed ? Patient: ChristopherIfeanyi A ?MR#: [id number] ?? [id number] ? : 1950 ?Acct:[id number] ? Age/Sex: 73 / M ?ADM Date: 06/27/24 ? Loc: HO.ED ? Attending Dr: ? Ordering Physician: Ailin Gonzales ?? Date of Service: 06/27/24 ?? Procedure(s): CT angio chest PE protocol ?? Accession Number(s): [id number] ? cc: Ailin Gonzales; Name,Jamie DURHAM ? Report Number: ?? [id number]: Total DLP = ??209.00 mGy-cm ?? EXAMINATION: [...] Chambers MD ??06/27/2024 02:03 PM ?? EST ? Dictated By: ?Fabian Sage MD ? Signed By: ?<Electronically signed by Fabian Elizabeth MD in OV> ? 06/27/24 1403 ? DD/ 1324 ? TD/TT: 06/27/24 1355 ? Pararescue Manager: ? Procedure Note Marquez, Image - 06/27/[address] [place] [address] [address] Scan Report Signed Patient: Ifeanyi White AMR#: [id number] : 1950cct:[id number] Age/Sex: 73 / MADM Date: 06/27/24 Loc: HO.ED Attending Dr: Ordering Physician: Ailin Gonzales Date of Service: 06/27/24 Procedure(s): CT angio chest PE protocol Accession Number(s): [id number] cc: Ailin Gonzales; Name,Jamie DURHAM Report Number: [id number]: Total DLP = 209.00 mGy-cm EXAMINATION: CT [...] by: Fabian Chambers MD 06/27/2024 02:03 PM EST Dictated By: Fabian Sage MD Signed By: <Electronically signed by Fabian Elizabeth MDin OV> 06/27/24 1403 DD/ 1324 TD/TT: 06/27/24 1355 Pararescue Manager: us [facility] External Provider IMG CT PROCEDURES Final Result * (ABNORMAL) VENOUS BLOOD GAS (06/27/2024 11:58 AM EST) VBG pH 7.43 7.32 - 7.43 [facility] Comment:METER #: [id number] additional_comment: CbAbliai VBG PCO2 47 mmHg [facility] Comment:METER #: [id number] additional_comment: Tonyi VBG PO2 54 mmHg [facility] Comment:METER #: [id number] additional_comment: CbAbliai VBG Base Excess 6.3 mmol/L [facility] Comment:METER #: [id number] additional_comment: Lizzetteiatobi VBG HCO3 31(H) 22 - 26 mmol/L [facility] Comment:METER #: [id number] additional_comment: CbArobbyiai O2 Sat, [place] 87.0 % [facility] Comment:METER #: [id number] additional_comment: CbAbliai 06/27/2024 11:5 8 AM EST 06/27/2024 12:15 PM EST us Generic External Data Provider LAB BLOOD ORDERAB LES Final Result Performing Organization Address [facility] de Phone Number [facility] [address] [place] [address] [phone] * Prothrombin Time-INR (06/27/2024 11:37 AM EST) Prothrombin Time 11.8 10.9 - 12.4 SEC [facility] INTERNATIONAL NORM RATIO 1.0 0.9 - 1.1 [facility] Comment:INTERNATIONAL NORMAL IZED RATIO (INR) REFERENCE [...] ORDERAB LES Final Result Performing Organization Address [facility] de Phone Number [facility] [address] [place] [phone] * Lactic Acid (06/27/2024 11:36 AM EST) Lactic Acid 1.0 0.5 - 2.0 mmol/L [facility] 06/27/2024 11:3 6 AM EST 06/27/2024 11:45 AM EST us Generic External Data Provider LAB BLOOD ORDERAB LES Final Result Performing Organization Address [facility] [address]/ZIP Co de Phone Number [facility] [address] [place] [phone] * Hold Lavender - Possible Hematology (06/27/2024 11:36 AM EST) Hold Lavender - Possible Hematololgy SEE NOTE [facility] Comment:Specimen will be hel d untested for 8 hours. Call Hematologyif testing is desired. 06/27/2024 11:3 6 AM EST 06/27/2024 12:01 PM EST us Generic External Data Provider HISTORICAL/NON OR DERABLE LABS Final Result Performing Organization Address [facility] Co de Phone Number [facility] [address] [place] [address] [phone] * Hold Green Gel (06/27/2024 11:36 AM EST) Hold Green Gel See Note [facility] Comment:Specimen held untest ed for 24 hours; Call to requestChemistry testing. 06/27/2024 11:3 6 AM EST 06/27/2024 12:01 PM EST Generic External Data Provider HISTORICAL/NON OR DERABLE LABS Final Result Performing Organization Address [facility] [address]/ZIP Co de Phone Number [facility] [address] [place] [address] [phone] * Hold Lavender - Possible Hematology (06/27/2024 11:36 AM EST) Hold Lavender - Possible Hematololgy SEE NOTE [facility] Comment:Specimen will be hel d untested for 8 hours. Call Hematologyif testing is desired. 06/27/2024 11:3 6 AM EST 06/27/2024 11:58 AM EST us Generic External Data Provider HISTORICAL/NON OR DERABLE LABS Final Result Performing Organization Address [facility] [address]/[facility] Co de Phone Number [facility] [address] [place] [phone] * Hold Green Gel (06/27/2024 11:36 AM EST) Hold Green Gel See Note [facility] Comment:Specimen held untest ed for 24 hours; Call to requestChemistry testing. 06/27/2024 11:3 6 AM EST 06/27/2024 11:58 AM EST Generic External Data Provider HISTORICAL/NON OR DERABLE LABS Final Result Performing Organization Address [facility] de Phone Number [facility] [address] [place] [phone] * High Sensitivity Troponin I (06/27/2024 10:42 AM EST) TROPONIN I HIGH SENSITIVITY 21.0 <3.5 - 35.0 ng/L [facility] Comment:The [place] high sens itivity Troponin-I results should beused in conjunction with other diagnostic information suchas ECG, clinical observations and information, and patientsymptoms to aid in the diagnosis of [place]. 06/27/2024 10:4 2 AM EST 06/27/2024 10:45 AM EST us Generic External Data Provider LAB BLOOD ORDERAB LES Final Result Performing Organization Address [facility] Co de Phone Number [facility] [address] [place] [phone] * B Type Natriuretic Peptide (BNP) (06/27/2024 10:42 AM EST) B Type Natriuretic Peptide 41 <100 pg/mL [facility] Comment:For those patients w ho are being treated with Natrecor(nesiritide, recombinant BNP), BNP testing should beperformed at least two hours post treatment in order toensure that only endogenous levels of BNP are detected. 06/27/2024 10:4 2 AM EST 06/27/2024 10:45 AM EST Generic External Data Provider LAB BLOOD ORDERAB LES Final Result Performing Organization Address [facility] Co de Phone Number [facility] [address] [place] [phone] * Hepatic Function Panel (06/27/2024 10:42 AM EST) Bilirubin, Total 0.2 0.0 - 1.0 mg/dL [facility] Bilirubin, Direct <0.2 0.0 - 0.5 mg/dL [facility] Aspartate Amino Transferase 28 5 - 37 U/L [facility] Alanine Aminotransferase 10 0 - 40 U/L [facility] Total Protein 6.6 6.5 - 8.0 g/dL [facility] Albumin Level 3.6 3.5 - 5.0 g/dL [facility] Alkaline Phosphatase 84 39 - 117 U/L [facility] 06/27/2024 10:4 2 AM EST 06/27/2024 10:45 AM EST blur Group External Data Provider LAB BLOOD ORDERAB LES Final Result Performing Organization Address [facility] [address] [facility] Co de Phone Number [facility] [address] [place] [phone] * (ABNORMAL) SARS-CoV-2 RNA, Influenza A/B, and RSV RNA, Ql NAAT (06/27/2024 10:42 AM EST) Pathologist [facility] Influenza A PCR POSITIVE(A) Negative [facility] Influenza B PCR NEGATIVE Negative [facility] Resp Syncy Virus RNA Qual PCR NEGATIVE Negative [facility] SARS COV2 PCR NEGATIVE Negative [facility] Comment:All test results mus t [...] use by authorized laboratories.Testing performed on the [employer] GeneXpert utilizingreal-time RT-PCR.All SARS CoV2 and positive influenza A/B results arereported to [facility]. 06/27/2024 10:4 2 AM EST 06/27/2024 10:45 AM EST us Generic External Data Provider LAB MICROBIOLOGY - GENERAL ORDERABLES Final Result [facility] [address] [place] [phone] * (ABNORMAL) Basic Metabolic Panel (06/27/2024 10:42 AM EST) Pathologist [facility] Sodium 140 135 - 145 mmol/L [facility] Potassium 4.6 3.3 - 5.1 mmol/L [facility] Chloride 104 96 - 108 mmol/L [facility] Carbon Dioxide 31(H) 22 - 29 mmol/L [facility] Anion Gap 10(L) 12 - 20 [facility] Urea Nitrogen (BUN) 25(H) 9 - 16 mg/dL [facility] Creatinine, Serum 0.71 0.5 - 1.4 mg/dL [facility] Creatinine Clr Calc Pharmacy 41.8 [facility] Comment:eGFR (calculated fro m the MDRD study equation) and eCrCl(calculated from the Cockcroft-Gault equation) are based ondifferent parameters and may not yield comparable results.If eCrCl result is absurd, please check patient'sheight/weight. Estimated Glomerular Filt Rate >60 [facility] Comment:Chronic Kidney Disea se: Estimated GFR < 60 mL/min/1.36j6Qcezef Kidney Disease: Estimated GFR < 15 mL/min/1.73m2 Glucose 100 60 - 115 mg/dL [facility] Calcium 8.5 8.4 - 10.2 mg/dL [facility] 06/27/2024 10:4 2 AM EST 06/27/2024 10:45 AM EST us Generic External Data Provider LAB BLOOD ORDERAB LES Final Result [facility] [address] [place] [phone] * (ABNORMAL) CBC auto differential (06/27/2024 10:42 AM EST) White Blood Count 3.2(L) 4.8 - 10.8 X10*3/uL [facility] Red Blood Count 4.31(L) 4.60 - 5.80 X10*6/uL [facility] Hemoglobin 13.7(L) 14.0 - 18.0 g/dl [facility] Hematocrit 42.1 42.0 - 52.0 % [facility] Mean Corpuscular Volume 97.7 80.0 - 98.0 fL [facility] Mean Corpuscular Hemoglobin 31.8 27.0 - 33.0 pg [facility] Mean Corpuscular HGB Conc 32.5 31.0 - 36.0 g/dl [facility] Red Cell Distribution Width 12.6 11.0 - 16.0 % [facility] Platelet Count 102(L) 160 - 400 X10*3/uL [facility] Comment:Test was verified by repeat analysis. Mean Platelet Volume 9.9 9.4 - 12.4 fL [facility] Neutrophils Percent Auto 65.1 45 - 73 % [facility] Imm Gran Pct Auto 0.6(H) 0.0 - 0.4 % [facility] Lymphocytes Percent Auto 23.5 20 - 40 % [facility] Monocytes Percent Auto 10.5 2 - 11 % [facility] Eosinophils Percent Auto 0.0 0 - 4 % [facility] Basophils Percent Auto 0.3 0 - 2 % [facility] NRBC Pct Auto 0.0 0.0 - 0.2 /100WBC [facility] Neutrophils Absolute Auto 2.1 2.0 - 8.3 x10*3/uL [facility] Imm Gran Abs Auto 0.02 0.00 - 0.03 X10*3/uL [facility] Lymphocytes Absolute Auto 0.8(L) 1.2 - 4.9 X10*3/uL [facility] Monocytes Absolute Auto 0.3 0.1 - 1.2 X10*3/uL [facility] Eosinophils Absolute Auto 0.0 0.0 - 0.4 X10*3/uL [facility] Basophils Absolute Auto 0.0 0.0 - 0.2 X10*3/uL [facility] NRBC Abs Auto 0.000 0.0 - 0.012 X10*3/uL [facility] 06/27/2024 10:4 2 AM EST 06/27/2024 10:45 AM EST us Generic External Data Provider LAB BLOOD ORDERAB LES Final Result Performing Organization Address [facility] Co de Phone Number [facility] [address] [place] [phone] * XR Chest 2 Views (06/27/2024 9:55 AM EST) Anatomical Region Laterality Modality Chest Radiographic Iliana ging 06/27/2024 9:55 AM EST Narrative 06/27/2024 11:05 AM EST ? [facility] [facility] ?[address] ?[place] [address] ?XRay Report ? Signed ? Patient: Christopher,Ifeanyi A ?MR#: [id number] ?? [id number] ? : 1950 ?Acct:[id number] ? Age/Sex: 73 / M ?ADM Date: 06/27/24 ? Loc: HO.ED ? Attending Dr: ? Ordering Physician: Angy Abbott DO ?? Date of Service: 06/27/24 ?? Procedure(s): XR chest 2V ?? Accession Number(s): [id number] ? cc: Angy Abbott DO; Name,Jamie DURHAM [...] DD/ 0955 ? TD/TT: 06/27/24 1059 ? Pararescue Manager: ? Procedure Note Chino Zayas - 06/27/[address] [address] XRay Report Signed Patient: Ifeanyi White [facility]#: [id number] : 1Acct:[id number] Age/Sex: 73 / MADM Date: 06/27/24 Loc: HO.ED Attending Dr: Ordering Physician: Angy Abbott DO Date of Service: 06/27/24 Procedure(s): XR chest 2V Accession Number(s): [id number] cc: Angy Abbott DO; Name,Jamie DURHAM EXAMINATION: [...] 06/27/24 1102 DD/ 0955 TD/TT: 06/27/24 1059 Pararescue Manager: [facility] External Provider IMG XR PROCEDURES Final Result documented in this encounter Visit Diagnoses Not on filedocumented in this encounter Additional Health Concerns Assessment Noted Time PHQ-9 Depression Total Score: 0 07/02/19 24 10:12 AM EST documented as of this encounter Care Teams Wood Piler Relationship Specialty Start Date End Date Name, MD Jamie [address] [place] [address] PCP - General Family Medicine 10/29/15 documented as of this encounter
--- OUTSIDE RECORDS SUMMARY | 2024-07-05 15:45 | XMS_ITS | Encounter Summary ---
Author Organization [employer] Address [address] [facility] 7t [place] [address] Care Team Providers Care Applications Architect Name Role Phone Name, Jamie DURHAM Primary Care Provider [phone] Reason for Visit * Reason Comments Med Refill Encounter Details Date Type Department Care Team ([facility] st Contact Info) Description 10/12/2023 Refill [facility] [address] [place], [place] [phone] Name, MD Jamie [address] [place] [address] Social History Tobacco Use Types Packs/Day Years [...] Description 07/08/2024 2:00 PM EST Office Visit [facility] [address] [place] [phone] Macy Amador NP [address] [place] [phone] 08/11/2024 11:15 AM EDT Office Visit [address] [address] NameJamie MD [address] [place] [phone] documented as of this encounter Visit Diagnoses Not on filedocumented in this encounter Additional Health Concerns Assessment Noted Time PHQ-9 Depression Total Score: 0 07/02/19 24 10:12 AM EST documented as of this encounter Care Teams Applications Architect Relationship Specialty Start Date End Date Name, MD Jamie [address] [place] [phone] PCP - General Family Medicine 10/29/15 documented as of this encounter
== END 2024-07-05 12:44 | disposition home or self-care (01) ==
LOC: HO.HVNA 12:43
PROVIDERS: Visit Provider Internal Medicine Geriatric Medicine
DX: I50.9 Heart failure, unspecified (principal); J18.9 Pneumonia, unspecified organism; J11.1 Influenza due to unidentified influenza virus with other respiratory manifestations
CPT/HCPCS: 36415; 80048

== ENCOUNTER 2024-07-06 13:19 | Emergency (ER) | payer OTHER, SELFPAY ==
[2024-07-06 13:36] VITALS: BP 148/93; BP 170/130; PULSE 103; PULSE 106; RESP 18; TEMP 36.8; O2SAT 97; BMI 21.0
--- NOTE | 2024-07-06 14:24 | ED_ITS ---
HPI - Male Genitourinary General Chief complaint: Urogenital-Male Stated complaint: disuria, bladder pain Time Seen by Provider: 07/06/24 14:13 Source: patient, family (), EMS and radiology equipment servicer Mode of arrival: EMS Limitations: no limitations History of Present Illness ED Provider: DR. Wood HPI Narrative: This is a 73-year-old male came in by EMS for evaluation of unable to urinate since this morning, patient was seen last year for similar presentation require Pacheco catheter, patient had full follow-up with urologist had CT urogram/CT abdomen and pelvis with is consistent with prostatomegaly, patient was started on VESIcare, Vistaril, and Flomax for urinary symptoms by the urologist. Returned today for similar symptoms. On arrival patient had a bladder scan showed 400 cc Pacheco catheter was placed with drainage of about 500 cc clear urine patient feels better, no abdominal pain, no urinary symptoms. No fever, no chills, no nausea, no vomiting. Related Data Home Medications ?Medication ?Instructions ?Recorded ?Confirmed gabapentin 300 mg capsule 300 mg PO DAILY 06/03/23 06/27/24 latanoprost 0.005 % eye drops 1 drp ophthalmic-Left QPM 06/03/23 06/27/24 naproxen 500 mg tablet 500 mg PO BID PRN Pain 06/03/23 06/27/24 losartan 25 mg tablet 25 mg PO DAILY 07/04/23 06/27/24 atorvastatin 20 mg tablet 20 mg PO DAILY 06/27/24 06/27/24 xnktxcykbhomwlffvqszah-xomgbypt-zpfrhitq 1 drp ophthalmic-Left BEDTIME 06/27/24 06/27/24 80 0.5 %-1 %-0.5 % eye drops (Refresh Optive Advanced) timolol maleate 0.5 % eye drops 1 drp ophthalmic-Left DAILY 06/27/24 06/27/24 Previous Rx's ?Medication ?Instructions ?Recorded tamsulosin 0.4 mg capsule 0.8 mg (2 x 0.4 mg) PO DAILY #180 03/21/24 caps finasteride 5 mg tablet 5 mg PO DAILY 30 days #30 tabs 03/28/24 cefuroxime axetil 500 mg tablet 500 mg PO Q12H 4 days #8 tabs 06/30/24 doxycycline monohydrate 100 mg 100 mg PO BID #8 tabs 06/30/24 tablet furosemide 20 mg tablet (Lasix) 20 mg PO DAILY #30 tabs 06/30/24 oseltamivir 30 mg capsule 30 mg PO BID #5 caps 06/30/24 Allergies Allergy/AdvReac Type Severity Reaction Status Date / Time No Known Allergies Allergy Verified 07/06/24 13:38 Review of Systems Review of Systems: All other systems are reviewed and are negative Constitutional: Reports as per HPI and Reports no additional constitutional complaints Eyes: Reports as per HPI and Reports no additional eye complaints Reports system reviewed and no additional complaints, except as documented Cardiovascular: Reports as per HPI and Reports no additional cardiovascular complaints Respiratory: Reports as per HPI and Reports no additional respiratory complaints Gastrointestinal: Reports as per HPI and Reports no additional gastrointestinal complaints Genitourinary: Reports no additional female genitourinary complaints Musculoskeletal: Reports no additional musculoskeletal complaints Skin/Breast: Reports system reviewed and no additional complaints, except as docu Psychiatric: Reports no additional psychiatric complaints Endocrine: Reports no additional endocrine complaints Hematologic/Lymphatic: Reports no additional hematologic/lymphatic complaints Allergic/Immunologic: Reports no additional allergic/immunologic complaints Reports system reviewed and no additional complaints, except as documented and Reports Abnormal speech present [facility] Past Medical History Medical History Hydrocele, bilateral Renal mass of unknown nature Pectus carinatum BPH (benign prostatic hyperplasia) Urinary retention Surgical History Hx of cystoscopy History of surgery on lower extremity H/O inguinal hernia repair Social History Social History Household Members: Spouse Housing: Apartment Do you presently have visiting nurse or other home services: No Alcohol intake: never Comment: reinforced on bed alarm Patient Tobacco Use Status: Never used Tobacco e-Cigarette/Vaping Use: Never Used Advance Directives Date on File: 07/08/23 service: No Physical Exam Vital Signs: Vital Signs: Last Vital Signs Temp 98.2 F 07/06/24 13:36 Pulse 106 H 07/06/24 13:36 Resp 18 07/06/24 13:36 BP 148/93 H 07/06/24 13:36 Pulse Ox 97 07/06/24 13:36 O2 Del Method Room Air 07/06/24 13:36 BMI result Body Mass Index 21.0 Vital signs have been reviewed and appear to be correct. Blood pressure elevated. Heart rate elevated. Respiratory rate normal. Temperature normal. Oxygen saturation normal. Appearance: Alert. Oriented X3. No acute distress. Head: Normal external exam. Normocephalic. Atraumatic. No Velazquez signs noted. No raccoon eyes noted Eyes: PERRLA. EOMI. Conjunctiva and sclera normal. Eyelids normal. ENT: TM's Normal. Pharynx normal. Uvula midline. Moist mucous membranes. No trismus noted. No drooling noted. No muffled voice noted. Neck: Normal inspection. Neck supple. FROM. No adenopathy. Thyroid Normal. No meningeal signs. No neck mass noted. CVS: Normal heart rate and rhythm. Heart sound normal. No murmurs noted. Pulses normal throughout. Respiratory: No respiratory distress. Painless inspiration. Breath sounds normal. No wheezes/rales/rhonchi noted. Chest nontender. No accessory muscle usage noted or decreased air movement noted. Abdomen: Soft and nontender. Bowel sounds normal in all 4 quadrants. No distention noted. No organomegaly noted. No visible injury noted. Back: No CVA tenderness. Full range of motion noted. Skin: Skin warm and dry. Normal skin color. Normal skin turgor. No rashes/lesions/lacerations noted. Extremities: No lower extremity edema. Extremities exhibit normal range of motion. Extremities nontender. Neuro: Oriented X 3. Cranial nerve exam: II-XII are grossly intact No motor deficit. No sensory deficit. Reflexes normal. Course Reevaluation(s) Reevaluation #1: Urinary retention, s/p Pacheco catheter insertion with relief of his symptoms. Will discharge home was Pacheco catheter with leg bag teaching and follow-up was urology. Time: 15:30 Medical Decision Making Differential Diagnosis Differential Diagnoses: The differential diagnosis associated with the presentation includes (Urinary retention, UTI, pyelonephritis, JOSELO, electrolyte derangement, severe anemia.) Admission/Observation Consideration of admission/observation: Escalation of care including admission/observation considered Lab Data MDM Lab Attestation statement: I reviewed the patient's lab results. Discharge Plan Discharge Clinical Impression: Acute retention of urine, Encounter for Pacheco catheter fitting and adjustment Patient Disposition: Still a Patient Instructions: Urinary Retention in Men (ED), Pacheco Catheter Placement and Care (ED) Prescriptions: No Action finasteride 5 mg tablet 5 mg PO DAILY 30 Days Qty: 30 4RF losartan 25 mg tablet 25 mg PO DAILY timolol maleate 0.5 % drops 1 drp ophthalmic-Left DAILY atorvastatin 20 mg tablet 20 mg PO DAILY Refresh Optive Advanced 0.5-1-0.5 % Drops 1 drp ophthalmic-Left BEDTIME oseltamivir 30 mg Capsule 30 mg PO BID Qty: 5 0RF furosemide [Lasix] 20 mg tablet 20 mg PO DAILY Qty: 30 0RF doxycycline monohydrate 100 mg tablet 100 mg PO BID Qty: 8 0RF cefuroxime axetil 500 mg tablet 500 mg PO Q12H 4 Days Qty: 8 0RF naproxen 500 mg tablet 500 mg PO BID PRN (Reason: Pain) gabapentin 300 mg capsule 300 mg PO DAILY latanoprost 0.005 % drops 1 drp ophthalmic-Left QPM tamsulosin 0.4 mg capsule 0.8 mg PO DAILY Qty: 180 3RF Referrals: Rhonda Castañeda MD [Physician] - Print Language: Uzbek
[2024-07-06 14:25] VITALS: BP 108/69; PULSE 93; RESP 16
--- NOTE | 2024-07-06 14:42 | PC.NURSE ---
Pacheco cath placed with good output. Pt reporting feeling much better
[2024-07-06 14:43] LABS: Appearance Urine Cloudy; Color Urine Other; Glucose Urine UA Negative (Negative); Leukocyte Esterase Urine Trace (Negative); Nitrite Urine Negative (Negative); UMIC TRIGGER UACC YES; Urine Blood Large (3+) (Negative); Urine Ketones Trace mg/dL (Negative); Urine Protein 30 (1+) mg/dL (Neg-Trace)
[2024-07-06 14:46] LABS: Bacteria Urine None Seen (None Seen); Hyaline Casts Urine 0-2 /LPF (0-2); RBC Urine >20 /HPF (0-2); Squamous Epithelial Cell Urine 0-2 /HPF (0-2); UACC Culture Trigger YES
[2024-07-06 14:53] LABS: MANUAL DIFF FLAG NO
[2024-07-06 14:57] LABS: Basophils Percent Auto 0.2 % (0-2); Eosinophils Percent Auto 0.3 % (0-4); Hemoglobin 14.7 g/dl (14.0-18.0); Imm Gran Abs Auto 0.02 X10*3/uL (0.00-0.03); Imm Gran Pct Auto 0.3 % (0.0-0.4); Lymphocytes Absolute Auto 0.8 X10*3/uL (1.2-4.9); Lymphocytes Percent Auto 12.2 % (20-40); Mean Corpuscular HGB Conc 34.2 g/dl (31.0-36.0); Mean Corpuscular Hemoglobin 31.9 pg (27.0-33.0); Mean Corpuscular Volume 93.3 fL (80.0-98.0); Mean Platelet Volume 9.2 fL (9.4-12.4); Monocytes Absolute Auto 0.4 X10*3/uL (0.1-1.2); Monocytes Percent Auto 6.9 % (2-11); Neutrophils Percent Auto 80.1 % (45-73); Platelet Count 249 X10*3/uL (160-400); Red Blood Count 4.61 X10*6/uL (4.60-5.80); Red Cell Distribution Width 12.2 % (11.0-16.0); White Blood Count 6.3 X10*3/uL (4.8-10.8)
[2024-07-06 15:06] LABS: Anion Gap 13 (12-20); Blood Urea Nitrogen 12 mg/dL (9-16); Calcium 9.5 mg/dL (8.4-10.2); Carbon Dioxide 29 mmol/L (22-29); Chloride 100 mmol/L (96-108); Creatinine Clr Calc Pharmacy 40.1; Estimated Glomerular Filt Rate > 60; Glucose Random 113 mg/dL (60-115); Potassium 3.9 mmol/L (3.3-5.1); Sodium 138 mmol/L (135-145)
[2024-07-06] MEDS: cefuroxime axetiL 250 MG TABLET PO (15:23)
[2024-07-06 15:43] VITALS: BP 108/69; PULSE 93; RESP 16; TEMP 36.4; O2SAT 99
--- OUTSIDE RECORDS SUMMARY | 2024-07-06 16:39 | XMS_ITS | Encounter Summary ---
Author Organization [facility] Address [address] [facility] [address] [place] [address] Care Team Providers Care Scrap Baller Name Role Phone Name, Jamie DURHAM Primary Care Provider [phone] Reason for Visit * Reason Comments Med Refill Encounter Details Date Type Department Care Team ([facility] st Contact Info) Description 10/12/2023 Refill [facility] [address] [place], [place] [phone] Name, MD Jamie [address] [place] [address] Social History Tobacco Use Types Packs/Day Years [...] Description 07/08/2024 2:00 PM EST Office Visit [facility] [address] [place] [phone] Macy Amador NP [address] [place] [phone] 08/11/2024 11:15 AM EDT Office Visit [address] [phone] NameJamie MD [address] [place] [phone] documented as of this encounter Visit Diagnoses Not on filedocumented in this encounter Additional Health Concerns Assessment Noted Time PHQ-9 Depression Total Score: 0 07/02/19 24 10:12 AM EST documented as of this encounter Care Teams Scrap Baller Relationship Specialty Start Date End Date Name, MD Jamie [address] [place] [phone] PCP - General Family Medicine 10/29/15 documented as of this encounter
--- OUTSIDE RECORDS SUMMARY | 2024-07-06 16:40 | XMS_ITS | Encounter Summary ---
Author Organization [employer] Address [address] [facility] [address] [place] [address] Care Team Providers Care Political Cartoonist Name Role Phone Name, Jamie DURHAM Primary Care Provider [phone] Encounter Details Date Type Department Care Team ([facility] st Contact Info) Description 08/26/2023 Telephone [facility] [address] [place], [place] [phone] Name, MD Jamie [address] [place] [address] Social History Tobacco Use Types Packs/Day Years [...] Description 07/08/2024 2:00 PM EST Office Visit [facility] [address] [place] [phone] Macy Amador NP [address] [place] [phone] 08/11/2024 11:15 AM EDT Office Visit [address] [address] Name, MD Jamie [address] [place] [phone] documented as of this encounter Visit Diagnoses Not on filedocumented in this encounter Additional Health Concerns Assessment Noted Time PHQ-9 Depression Total Score: 0 07/02/19 24 10:12 AM EST documented as of this encounter Care Teams Political Cartoonist Relationship Specialty Start Date End Date Name, MD Jamie [address] [place] [phone] PCP - General Family Medicine 10/29/15 documented as of this encounter
--- OUTSIDE RECORDS SUMMARY | 2024-07-06 16:40 | XMS_ITS | Encounter Summary ---
Author Organization [employer] Address [address] [facility] 7t [place] [address] Care Team Providers Care Printing Plate Clerk Name Role Phone Name, Jamie DURHAM Primary Care Provider Encounter Details Date Type Department Care Team (Late st Contact Info) Description 06/27/2024 Orders Only [facility] External Provider, [facility] Social History Tobacco Use Types Packs/Day [...] Description 07/08/2024 2:00 PM EST Office Visit [facility] [address] [place] [address] [phone] AppramMacy NP [address] [place], [place] [phone] 08/11/2024 11:15 AM EDT Office Visit [facility] [address] [place] [address] Name, MD Jamie [address] [place] [address] documented as of this encounter [...] EST Narrative 06/29/2024 8:40 AM EST ? [facility] ?[address] ?[place] [address] ?XRay Report ? Signed ? Patient: Ifeanyi White A ?MR#: [id number] ?? [id number] ? : 1950 ?Acct:[id number] ? Age/Sex: 73 / M ?ADM Date: 06/27/24 ? Loc: HO.IMC ?473-1 ? Attending Dr: María Phan RECORD FILING CLERK ? Ordering Physician: María Phan NP ?? Date of Service: 06/29/24 ?? Procedure(s): XR chest 1V ?? Accession Number(s): [id number] ? cc: Name,Jamie DURHAM; María Phan RECORD FILING CLERK ? EXAMINATION: ?? XR CHEST ? CLINICAL [...] DD/ 0755 ? TD/TT: 06/29/24 0813 ? Certification And Selection Specialist: ? Procedure Note Marquez, Image - 06/29/[address] [address] XRay Report Signed Patient: Ifeanyi White AMR#: [id number] : 1950cct:[id number] Age/Sex: 73 / MADM Date: 06/27/24 Loc: [facility] 473-[address]: María Phan NP Ordering Physician: María Phan NP Date of Service: 06/29/24 Procedure(s): XR chest 1V Accession Number(s): [id number] cc: Jamie Garcia MD; María Phan NP [...] 06/29/24 0837 DD/ 0755 TD/TT: 06/29/24 0813 Certification And Selection Specialist: us [facility] External Provider IMG XR PROCEDURES Final Result * CTA Chest PE Protocal (06/27/2024 1:24 PM EST) Anatomical Region Laterality Modality Body, Chest Computed Tomogra phy 06/27/2024 1:24 PM EST Narrative 06/27/2024 2:06 PM EST ? [facility] ?[address] ?[place], [place] [address] ? CT Scan Report ? Signed ? Patient: ChristopherIfeanyi A ?MR#: [id number] ?? [id number] ? : 1950 ?Acct:[id number] ? Age/Sex: 73 / M ?ADM Date: 06/27/24 ? Loc: HO.ED ? Attending Dr: ? Ordering Physician: Ailin Gonzales ?? Date of Service: 06/27/24 ?? Procedure(s): CT angio chest PE protocol ?? Accession Number(s): [id number] ? cc: Ailin Gonzales; Name,Jamie DURHAM ? Report Number: ?? [id number]: Total DLP = ??209.00 mGy-cm ?? EXAMINATION: [...] DD/ 1324 ? TD/TT: 06/27/24 1355 ? Certification And Selection Specialist: ? Procedure Note Marquez, Image - 06/27/[address] [place] [address] [address] Scan Report Signed Patient: Ifeanyi White AMR#: [id number] : 1950cct:[id number] Age/Sex: 73 / MADM Date: 06/27/24 Loc: HO.ED Attending Dr: Ordering Physician: Ailin Gonzales Date of Service: 06/27/24 Procedure(s): CT angio chest PE protocol Accession Number(s): [id number] cc: Ailin Gonzales; Name,Jamie DURHAM Report Number: [id number]: Total DLP = 209.00 mGy-cm EXAMINATION: CT [...] 06/27/24 1403 DD/ 1324 TD/TT: 06/27/24 1355 Certification And Selection Specialist: us [facility] External Provider IMG CT PROCEDURES Final Result * (ABNORMAL) VENOUS BLOOD GAS (06/27/2024 11:58 AM EST) VBG pH 7.43 7.32 - 7.43 [facility] Comment:METER #: [id number] additional_comment: CbAbliai VBG PCO2 47 mmHg [facility] Comment:METER #: [id number] additional_comment: Tonyi VBG PO2 54 mmHg [facility] Comment:METER #: [id number] additional_comment: CbAbliai VBG Base Excess 6.3 mmol/L [facility] Comment:METER #: [id number] additional_comment: Lizzetteiatobi VBG HCO3 31(H) 22 - 26 mmol/L [facility] Comment:METER #: [id number] additional_comment: CbArobbyiai O2 Sat, [place]avan 87.0 % [facility] Comment:METER #: [id number] additional_comment: CbAbliai 06/27/2024 11:5 8 AM EST 06/27/2024 12:15 PM EST us Generic External Data Provider LAB BLOOD ORDERAB LES Final Result Performing Organization Address [facility] de Phone Number [facility] [address] [place] [address] [phone] * Prothrombin Time-INR (06/27/2024 11:37 AM EST) Prothrombin Time 11.8 10.9 - 12.4 SEC [facility] INTERNATIONAL NORM RATIO 1.0 0.9 - 1.1 [facility] Comment:INTERNATIONAL NORMAL IZED RATIO (INR) [...] ORDERAB LES Final Result Performing Organization Address [facility] de Phone Number [facility] [address] [place] [phone] * Lactic Acid (06/27/2024 11:36 AM EST) Lactic Acid 1.0 0.5 - 2.0 mmol/L [facility] 06/27/2024 11:3 6 AM EST 06/27/2024 11:45 AM EST us Generic External Data Provider LAB BLOOD ORDERAB LES Final Result Performing Organization Address [facility]/ZIP Co de Phone Number [facility] [address] [place] [address] [phone] * Hold Lavender - Possible Hematology (06/27/2024 11:36 AM EST) Hold Lavender - Possible Hematololgy SEE NOTE [facility] Comment:Specimen will be hel d untested for 8 hours. Call Hematologyif testing is desired. 06/27/2024 11:3 6 AM EST 06/27/2024 12:01 PM EST us Generic External Data Provider HISTORICAL/NON OR DERABLE LABS Final Result Performing Organization Address [facility] Co de Phone Number [facility] [address] [place] [address] [phone] * Hold Green Gel (06/27/2024 11:36 AM EST) Hold Green Gel See Note [facility] Comment:Specimen held untest ed for 24 hours; Call to requestChemistry testing. 06/27/2024 11:3 6 AM EST 06/27/2024 12:01 PM EST Generic External Data Provider HISTORICAL/NON OR DERABLE LABS Final Result Performing Organization Address [facility]/ZIP Co de Phone Number [facility] [address] [place] [address] [phone] * Hold Lavender - Possible Hematology (06/27/2024 11:36 AM EST) Hold Lavender - Possible Hematololgy SEE NOTE [facility] Comment:Specimen will be hel d untested for 8 hours. Call Hematologyif testing is desired. 06/27/2024 11:3 6 AM EST 06/27/2024 11:58 AM EST us Generic External Data Provider HISTORICAL/NON OR DERABLE LABS Final Result Performing Organization Address [facility] Co de Phone Number [facility] [address] [place] [phone] * Hold Green Gel (06/27/2024 11:36 AM EST) Hold Green Gel See Note [facility] Comment:Specimen held untest ed for 24 hours; Call to requestChemistry testing. 06/27/2024 11:3 6 AM EST 06/27/2024 11:58 AM EST Generic External Data Provider HISTORICAL/NON OR DERABLE LABS Final Result Performing Organization Address [facility] de Phone Number [facility] [address] [place] [phone] * High Sensitivity Troponin I (06/27/2024 10:42 AM EST) TROPONIN I HIGH SENSITIVITY 21.0 <3.5 - 35.0 ng/L [facility] Comment:The [place] high sens itivity Troponin-I results should beused in conjunction with other diagnostic information suchas ECG, clinical observations and information, and patientsymptoms to aid in the diagnosis of KS. 06/27/2024 10:4 2 AM EST 06/27/2024 10:45 AM EST us Generic External Data Provider LAB BLOOD ORDERAB LES Final Result Performing Organization Address [facility] Co de Phone Number [facility] [address] [place] [address] [phone] * B Type Natriuretic Peptide (BNP) (06/27/2024 10:42 AM EST) B Type Natriuretic Peptide 41 <100 pg/mL [facility] Comment:For those patients w ho are being treated with Natrecor(nesiritide, recombinant BNP), BNP testing should beperformed at least two hours post treatment in order toensure that only endogenous levels of BNP are detected. 06/27/2024 10:4 2 AM EST 06/27/2024 10:45 AM EST Generic External Data Provider LAB BLOOD ORDERAB LES Final Result Performing Organization Address [facility] Co de Phone Number [facility] [address] [place] [phone] * Hepatic Function Panel (06/27/2024 10:42 AM EST) Bilirubin, Total 0.2 0.0 - 1.0 mg/dL [facility] Bilirubin, Direct <0.2 0.0 - 0.5 mg/dL [facility] Aspartate Amino Transferase 28 5 - 37 U/L [facility] Alanine Aminotransferase 10 0 - 40 U/L [facility] Total Protein 6.6 6.5 - 8.0 g/dL [facility] Albumin Level 3.6 3.5 - 5.0 g/dL [facility] Alkaline Phosphatase 84 39 - 117 U/L [facility] 06/27/2024 10:4 2 AM EST 06/27/2024 10:45 AM EST [employer] External Data Provider LAB BLOOD ORDERAB LES Final Result Performing Organization Address [facility] Co de Phone Number [facility] [address] [place] [phone] * (ABNORMAL) SARS-CoV-2 RNA, Influenza A/B, and RSV RNA, Ql NAAT (06/27/2024 10:42 AM EST) Pathologist [facility] Influenza A PCR POSITIVE(A) Negative [facility] Influenza B PCR NEGATIVE Negative [facility] Resp Syncy Virus RNA Qual PCR NEGATIVE Negative [facility] SARS COV2 PCR NEGATIVE Negative [facility] Comment:All test results mus t [...] use by authorized laboratories.Testing performed on the [employer] GeneXpert utilizingreal-time RT-PCR.All SARS CoV2 and positive influenza A/B results arereported to [facility]. 06/27/2024 10:4 2 AM EST 06/27/2024 10:45 AM EST us Generic External Data Provider LAB MICROBIOLOGY - GENERAL ORDERABLES Final Result [facility] [address] [place] [phone] * (ABNORMAL) Basic Metabolic Panel (06/27/2024 10:42 AM EST) Pathologist [facility] Sodium 140 135 - 145 mmol/L [facility] Potassium 4.6 3.3 - 5.1 mmol/L [facility] Chloride 104 96 - 108 mmol/L [facility] Carbon Dioxide 31(H) 22 - 29 mmol/L [facility] Anion Gap 10(L) 12 - 20 [facility] Urea Nitrogen (BUN) 25(H) 9 - 16 mg/dL [facility] Creatinine, Serum 0.71 0.5 - 1.4 mg/dL [facility] Creatinine Clr Calc Pharmacy 41.8 [facility] Comment:eGFR (calculated fro m the MDRD study equation) and eCrCl(calculated from the Cockcroft-Gault equation) are based ondifferent parameters and may not yield comparable results.If eCrCl result is absurd, please check patient'sheight/weight. Estimated Glomerular Filt Rate >60 [facility] Comment:Chronic Kidney Disea se: Estimated GFR < 60 mL/min/1.13w4Gidosa Kidney Disease: Estimated GFR < 15 mL/min/1.73m2 Glucose 100 60 - 115 mg/dL [facility] Calcium 8.5 8.4 - 10.2 mg/dL [facility] 06/27/2024 10:4 2 AM EST 06/27/2024 10:45 AM EST us Generic External Data Provider LAB BLOOD ORDERAB LES Final Result [facility] [address] [place] [address] [phone] * (ABNORMAL) CBC auto differential (06/27/2024 10:42 AM EST) White Blood Count 3.2(L) 4.8 - 10.8 X10*3/uL [facility] Red Blood Count 4.31(L) 4.60 - 5.80 X10*6/uL [facility] Hemoglobin 13.7(L) 14.0 - 18.0 g/dl [facility] Hematocrit 42.1 42.0 - 52.0 % [facility] Mean Corpuscular Volume 97.7 80.0 - 98.0 fL [facility] Mean Corpuscular Hemoglobin 31.8 27.0 - 33.0 pg [facility] Mean Corpuscular HGB Conc 32.5 31.0 - 36.0 g/dl [facility] Red Cell Distribution Width 12.6 11.0 - 16.0 % [facility] Platelet Count 102(L) 160 - 400 X10*3/uL [facility] Comment:Test was verified by repeat analysis. Mean Platelet Volume 9.9 9.4 - 12.4 fL [facility] Neutrophils Percent Auto 65.1 45 - 73 % [facility] Imm Gran Pct Auto 0.6(H) 0.0 - 0.4 % [facility] Lymphocytes Percent Auto 23.5 20 - 40 % [facility] Monocytes Percent Auto 10.5 2 - 11 % [facility] Eosinophils Percent Auto 0.0 0 - 4 % [facility] Basophils Percent Auto 0.3 0 - 2 % [facility] NRBC Pct Auto 0.0 0.0 - 0.2 /100WBC [facility] Neutrophils Absolute Auto 2.1 2.0 - 8.3 x10*3/uL [facility] Imm Gran Abs Auto 0.02 0.00 - 0.03 X10*3/uL [facility] Lymphocytes Absolute Auto 0.8(L) 1.2 - 4.9 X10*3/uL [facility] Monocytes Absolute Auto 0.3 0.1 - 1.2 X10*3/uL [facility] Eosinophils Absolute Auto 0.0 0.0 - 0.4 X10*3/uL [facility] Basophils Absolute Auto 0.0 0.0 - 0.2 X10*3/uL [facility] NRBC Abs Auto 0.000 0.0 - 0.012 X10*3/uL [facility] 06/27/2024 10:4 2 AM EST 06/27/2024 10:45 AM EST us Generic External Data Provider LAB BLOOD ORDERAB LES Final Result Performing Organization Address [facility] Co de Phone Number [facility] [address] [place] [phone] * XR Chest 2 Views (06/27/2024 9:55 AM EST) Anatomical Region Laterality Modality Chest Radiographic Iliana ging 06/27/2024 9:55 AM EST Narrative 06/27/2024 11:05 AM EST ? [facility] ?[address] ?[place] [address] ?XRay Report ? Signed ? Patient: Christopher,Ifeanyi A ?MR#: [id number] ?? [id number] ? : 1950 ?Acct:[id number] ? Age/Sex: 73 / M ?ADM Date: 06/27/24 ? Loc: HO.ED ? Attending Dr: ? Ordering Physician: Angy Abbott DO ?? Date of Service: 06/27/24 ?? Procedure(s): XR chest 2V ?? Accession Number(s): [id number] ? cc: Angy Abbott DO; Name,Jamie DURHAM [...] DD/ 0955 ? TD/TT: 06/27/24 1059 ? Certification And Selection Specialist: ? Procedure Note Chino Zayas - 06/27/[address] [address] XRay Report Signed Patient: Ifeanyi White [facility]#: [id number] : 1Acct:[id number] Age/Sex: 73 / MADM Date: 06/27/24 Loc: HO.ED Attending Dr: Ordering Physician: Angy Abbott DO Date of Service: 06/27/24 Procedure(s): XR chest 2V Accession Number(s): [id number] cc: Angy Abbott DO; Name,Jamie DURHAM EXAMINATION: [...] 06/27/24 1102 DD/ 0955 TD/TT: 06/27/24 1059 Certification And Selection Specialist: [facility] External Provider IMG XR PROCEDURES Final Result documented in this encounter Visit Diagnoses Not on filedocumented in this encounter Additional Health Concerns Assessment Noted Time PHQ-9 Depression Total Score: 0 07/02/19 24 10:12 AM EST documented as of this encounter Care Teams Printing Plate Clerk Relationship Specialty Start Date End Date Name, MD Jamie [address] [place] [address] PCP - General Family Medicine 10/29/15 documented as of this encounter
--- OUTSIDE RECORDS SUMMARY | 2024-07-06 16:40 | XMS_ITS | Encounter Summary ---
Author Organization [employer] [facility] Address [address] [place] [address] 7t [place] [address] Care Team Providers Care Server Cashier Name Role Phone Name, Jamie DURHAM Primary Care Provider [phone] Encounter Details Date Type Department Care Team (Latest Contact Info) Description 08/24/2018 Abstract [facility] CONVERSIONS Dental, Provider, DDS Social History Tobacco [...] Description 07/08/2024 2:00 PM EST Office Visit [facility] [address] [place] [phone] Macy Amador NP [address] [place] [address] 08/11/2024 11:15 AM EDT Office Visit [facility] [address] [place] [phone] Name, MD Jamie [address] [place] [address] documented as of this encounter Visit Diagnoses Not on filedocumented in this encounter Care Teams Server Cashier Relationship Specialty Start Date End Date Name, MD Jamie [address] [place] [address] PCP - General Family Medicine 6/27/16 documented as of this encounter
--- OUTSIDE RECORDS SUMMARY | 2024-07-06 16:40 | XMS_ITS | Encounter Summary ---
Author Organization [employer] Address [address] [facility] 7t [place] [address] Care Team Providers Care Carton Forming Machine Helper Name Role Phone Name, Jamie DURHAM Primary Care Provider [phone] Encounter Details Date Type Department Care Team (Late st Contact Info) Description 07/05/2024 Orders Only [facility] [address] [place], [place] [phone] Name, MD Jamie [address] [place] [address] Social History Tobacco Use Types Packs/Day Years [...] Description 07/08/2024 2:00 PM EST Office Visit [facility] [address] [place] [phone] AppramMacy NP [address] [place] [address] 08/11/2024 11:15 AM EDT Office Visit [address] [address] Name, MD Jamie [address] [place] [address] documented as of this encounter Procedures Procedure Name Priority Date/Time Associated Diagnosis Comments BASIC METABOLIC PANEL Routine 07/05/2024 11:02 AM EST documented in this encounter Results * (ABNORMAL) Basic Metabolic Panel (07/05/2024 11:02 AM EST) Sodium 139 135 - 145 mmol/L [facility] Potassium 4.0 3.3 - 5.1 mmol/L [facility] Chloride 102 96 - 108 mmol/L [facility] Carbon Dioxide 33(H) 22 - 29 mmol/L [facility] Anion Gap 8(L) 12 - 20 [facility] Urea Nitrogen (BUN) 14 9 - 16 mg/dL [facility] Creatinine, Serum 0.69 0.5 - 1.4 mg/dL [facility] Estimated Glomerular Filt Rate >60 [facility] Comment:Chronic Kidney Disea se: Estimated GFR < 60 mL/min/1.98a4Ctkxdi Kidney Disease: Estimated GFR < 15 mL/min/1.73m2 Glucose 89 60 - 115 mg/dL [facility] Calcium 9.1 8.4 - 10.2 mg/dL [facility] 07/05/2024 11:0 2 AM EST 07/05/2024 12:45 PM EST Jamie Garcia MD LAB BLOOD ORDERABLES Final Resul t [facility] [address] [place] [phone] [phone] documented in this encounter Visit Diagnoses Not on filedocumented in this encounter Additional Health Concerns Assessment Noted Time PHQ-9 Depression Total Score: 0 07/02/19 24 10:12 AM EST documented as of this encounter Care Teams Carton Forming Machine Helper Relationship Specialty Start Date End Date Name, MD Jamie [address] [place] [address] PCP - General Family Medicine 10/29/15 documented as of this encounter
--- OUTSIDE RECORDS SUMMARY | 2024-07-06 16:40 | XMS_ITS | Encounter Summary ---
Author Organization [employer] Address [address] [facility] [employer] [facility] 7t [place] [address] Care Team Providers Care Career Technical Education Instructor Name Role Phone Name, Jamie DURHAM Primary Care Provider [phone] Reason for Visit * Reason Comments Transition Of Care (Tcm) HDF scheduled Encounter Details Date Type Department Care Team ([facility] st Contact Info) Description 07/04/2024 Patient Outreach [facility] [address] [place], [place] [phone] Name, MD Jamie [address] [place] [address] Transition Of Care (Tcm) (HDF scheduled) Social [...] of Admission/Visit 06/08/24 Date of Discharge 06/30/24 [facility] Diagnosis Pneumonia, Flu Disposition Discharged Home Follow-Up [...] has been scheduled for 07/08 at2:00pm with REHABILITATION CONSTRUCTION SPECIALIST, Apprakaterin. Patient provided with education on contacting the Health Center with any questions or concerns prior to the scheduled appointment. Patient educated on extended clinic hours onMondays and Wednesdays, and Walk-In Urgent Care Located in [facility]. Patient provided with after-hours line for [facility], , which offer night time triage service and option to transfer to security controls assessor provider if needed. CC scanned discharge summary into patient's chart. Biggest concern for appointment at this time is no concerns. Appropriate screenings completed in anticipation of appointment. documented in this encounter Plan of Treatment Upcoming Encounters Date Type Department Care Team (Late st Contact Info) Description 07/08/2024 2:00 PM EST Office Visit [facility] [address] [place] [address] Macy Amador NP [address] [place] [address] 08/11/2024 11:15 AM EDT Office Visit [facility] [address] [place] [address] Name, MD Jamie [address] [place] [phone] documented as of this encounter Visit Diagnoses Not on filedocumented in this encounter Additional Health Concerns Assessment Noted Time PHQ-9 Depression Total Score: 0 07/02/19 24 10:12 AM EST documented as of this encounter Care Teams Career Technical Education Instructor Relationship Specialty Start Date End Date NameJamie MD [address] [place] [phone] PCP - General Family Medicine 10/29/15 documented as of this encounter
--- OUTSIDE RECORDS SUMMARY | 2024-07-06 16:40 | XMS_ITS | Encounter Summary ---
Author Organization [employer] [facility] Address [address] [facility] 7t [place] [address] Care Team Providers Care Mechanist Name Role Phone Name, Jamie DURHAM Primary Care Provider [phone] Reason for Visit * Reason Comments Med Refill Encounter Details Date Type Department Care Team ([facility] st Contact Info) Description 06/08/2024 Refill [facility] MED[facility] [address] [place], [place] [phone] Name, MD Jamie [address] [place] [address] Social History Tobacco Use Types Packs/Day Years [...] Description 07/08/2024 2:00 PM EST Office Visit [facility] [address] [place] [address] Macy Amador NP [address] [place] [phone] 08/11/2024 11:15 AM EDT Office Visit [address] [address] NameJamie MD [address] [place] [phone] documented as of this encounter Visit Diagnoses Not on filedocumented in this encounter Additional Health Concerns Assessment Noted Time PHQ-9 Depression Total Score: 0 07/02/19 24 10:12 AM EST documented as of this encounter Care Teams Mechanist Relationship Specialty Start Date End Date Name, MD Jamie [address] [place] [phone] PCP - General Family Medicine 10/29/15 documented as of this encounter
--- OUTSIDE RECORDS SUMMARY | 2024-07-06 16:40 | XMS_ITS | Encounter Summary ---
Author Organization [employer] Address [address] [facility] 7[address] [place] [address] Care Team Providers Care Student Support Counselor Name Role Phone Name, Jamie DURHAM Primary Care Provider [phone] Encounter Details Date Type Department Care Team (Late st Contact Info) Description 06/14/2023 Abstract [facility] MED[facility]INE [address] [place], [place] [phone] Name, MD Jamie [address] [place] [address] Social History Tobacco Use Types Packs/Day Years [...] Office Visit [facility] MED[facility]INE [address] [place] [address] Macy Amador NP [address] [place] [address] 08/11/2024 11:15 AM EDT Office Visit [facility] [address] [place] [phone] Name, MD Jamie [address] [place] [address] documented as of this encounter Visit Diagnoses Not on filedocumented in this encounter Care Teams Student Support Counselor Relationship Specialty Start Date End Date Name, MD Jamie [address] [place] [address] PCP - General Family Medicine 10/29/15 documented as of this encounter
--- OUTSIDE RECORDS SUMMARY | 2024-07-06 16:40 | XMS_ITS | Clinical Summary ---
Author Organization [employer] Address [address] [place] [address] 7t [place] [address] Care Team Providers Care Geography Faculty Member Name Role Phone Name, Jamie DURHAM Primary Care Provider Allergies Active Allergy Reactions Criticality Noted Date [...] Blood work normal including screening for subclinical Wilkinson and 24 urine metanephrines. His MRI was [...] stone 10/09/2017 Overview (09/15/2023): He follows with [facility] Has renal stones BPH Benign [...] 09/15/2023 Overview (03/13/2023): One episode uncomplicated at [facility] 09/2016 Normal colonoscopy the same year Repeat colonoscopy recommended in 10 years Cervical radiculitis 03/18/2012 024 Neck pain 03/18/2012 03/13/2023 Low back pain 09/24/2009 07/02/2023 Groin pain 09/24/2009 03/13/2023 Neuropathic pain syndrome (non-herpetic) 09/24/2009 03/13/2023 Encounters Date Type Department Care Team Description 07/06/2024 Telephone [facility] MEDICINE [address] [place] [address] Librado Cerna MA chartprep 07/05/2024 Orders Only [facility] MEDICINE [address] [place] [address] Jamie Garcia MD 07/04/2024 Telephone [facility] [address] [place] [address] Jamie Garcia MD Verbal Order 07/04/2024 Patient Outreach [facility] MED & PEDS [address] [place] [address] Jamie Garcia MD Transition Of Care (Tcm) (HDF scheduled) 07/04/2024 Telephone [facility]IC[facility] [address] [place] [address] Jamie Garcia, MD Hospital Follow-up 06/27/2024 Orders Only [facility] External Provider, [facility] 06/08/2024 Refill [facility] [address] [facility] [place] [address] NameJamie MD 04/26/2024 Telephone [facility] [address] [facility] [place] [address] NameJamie MD No Show 04/24/2024 Refill [facility] [address] [facility] [place] [address] Name, MD Jamie Essential hypertension; Hyponatremia; Back pain, unspecified back location, unspecified back pain laterality, unspecified chronicity from Last 3 Months Immunizations Name Administration [...] Description 07/08/2024 2:00 PM EST Office Visit [facility] [address] [place] [address] Macy Amaodr NP [address] [place] [address] 08/11/2024 11:15 AM EDT Office Visit [facility] [address] [place] [address] Name, MD Jamie [address] [place] [address] Health Maintenance Due Date Last Done Comments [...] included. Sodium 139 135 - 145 mmol/L [facility] Potassium 4.0 3.3 - 5.1 mmol/L [facility] Chloride 102 96 - 108 mmol/L [facility] Carbon Dioxide 33(H) 22 - 29 mmol/L [facility] Anion Gap 8(L) 12 - 20 [facility] Urea Nitrogen (BUN) 14 9 - 16 mg/dL [facility] Creatinine, Serum 0.69 0.5 - 1.4 mg/dL [facility] Estimated Glomerular Filt Rate >60 [facility] Comment:Chronic Kidney Disea se: Estimated GFR < 60 mL/min/1.29z2Ylndsa Kidney Disease: Estimated GFR < 15 mL/min/1.73m2 Glucose 89 60 - 115 mg/dL [facility] Calcium 9.1 8.4 - 10.2 mg/dL [facility] 07/05/2024 11:0 2 AM EST 07/05/2024 12:45 PM EST us Jamie Garcia MD LAB BLOOD ORDERABLES Final Resul t [facility] [address] [place] [phone] * XR Chest 1 View (06/29/2024 7:55 AM EST) Anatomical Region Laterality Modality Chest Radiographic Iliana ging 06/29/2024 7:55 AM EST Narrative 06/29/2024 8:40 AM EST ? [facility] ?[address] ?[place] [address] ?XRay Report ? Signed ? Patient: Christopher,Ifeanyi A ?MR#: [id number] ?? [id number] ? : 1950 ?Acct:[id number] ? Age/Sex: 73 / M ?ADM Date: 06/27/25 ? Loc: HO.IMC ?473-1 ? Attending Dr: María Phan HAND LOOM WEAVER ? Ordering Physician: María Phan NP ?? Date of Service: 06/29/24 ?? Procedure(s): XR chest 1V ?? Accession Number(s): [id number] ? cc: Name,Jamie DURHAM; María Phan NP ? EXAMINATION: ?? [...] Chambers MD ??06/29/2024 08:37 AM ?? EST ? Dictated By: ?Fabian Sage MD ? Signed By: ?<Electronically signed by Fabian Elizabeth MD in OV> ? 06/29/24 0837 ? DD/ 0755 ? TD/TT: 06/29/24 0813 ? Six Pack Packer: ? Procedure Note Marquez, Chino - 06/29/2024 [place] [address] XRay Report Signed Patient: Ifeanyi White [facility]#: [id number] : 1Acct:[id number] Age/Sex: 73 / MADM Date: 06/27/24 Loc: [facility] 473-[address]: María Phan NP Ordering Physician: María Phan NP Date of Service: 06/29/24 Procedure(s): XR chest 1V Accession Number(s): [id number] cc: Jamie Garcia MD; María Phan NP [...] 06/29/24 0837 DD/ 0755 TD/TT: 06/29/24 0813 Six Pack Packer: [facility] External Provider IMG XR PROCEDURES Final Result * CTA Chest PE Protocal (06/27/2024 1:24 PM EST) Anatomical Region Laterality Modality Body, Chest Computed Tomogra phy 06/27/2024 1:24 PM EST Narrative 06/27/2024 2:06 PM EST ? [facility] ?[address] ?[place] [address] ? CT Scan Report ? Signed ? Patient: Ifeanyi White ?MR#: [id number] ?? [id number] ? : 1950 ?Acct:[id number] ? Age/Sex: 73 / M ?ADM Date: 06/27/24 ? Loc: HO.ED ? Attending Dr: ? Ordering Physician: Ailin Gonzales ?? Date of Service: 06/27/24 ?? Procedure(s): CT angio chest PE protocol ?? Accession Number(s): [id number] ? cc: Ailin Gonzales; NameJamie MD ? Report Number: ?? : Total DLP = ??209.00 mGy-cm ?? EXAMINATION: [...] DD/ 1324 ? TD/TT: 06/27/24 1355 ? Six Pack Packer: ? Procedure Note Chino Zayas - 06/27/[address] [address] [place] Scan Report Signed Patient: Ifeanyi White [facility]#: [id number] : 1Acct:[id number] Age/Sex: 73 / MADM Date: 06/27/24 Loc: HO.ED Attending Dr: Ordering Physician: Ailin Gonzales Date of Service: 06/27/24 Procedure(s): CT angio chest PE protocol Accession Number(s): [id number] cc: Ailin Gonzales; Name,Jamie DURHAM Report Number: [id number]: Total DLP = 209.00 mGy-cm EXAMINATION: CT [...] by: Fabian Chambers MD 06/27/2024 02:03 PM [facility] Dictated By: Fabian Sage MD Signed By: <Electronically signed by Fabian Elizabeth MDin OV> 06/27/24 1403 DD/ 1324 TD/TT: 06/27/24 1355 Six Pack Packer: [facility] External Provider IMG CT PROCEDURES Final Result * (ABNORMAL) VENOUS BLOOD GAS (06/27/2024 11:58 AM EST) VBG pH 7.43 7.32 - 7.43 [facility] Comment:METER #: [id number] additional_comment: CbAbliai VBG PCO2 47 mmHg [facility] Comment:METER #: [id number] additional_comment: CbAbliai VBG PO2 54 mmHg [facility] Comment:METER #: [id number] additional_comment: CbAbliai VBG Base Excess 6.3 mmol/L [facility] Comment:METER #: [id number] additional_comment: CbAbliai VBG HCO3 31(H) 22 - 26 mmol/L [facility] Comment:METER #: [id number] additional_comment: CbAbliai O2 Sat, [place]avan 87.0 % [facility] Comment:METER #: [id number] additional_comment: CbAbliai 06/27/2024 11:5 8 AM EST 06/27/2024 12:15 PM EST Generic External Data Provider LAB BLOOD ORDERAB LES Final Result Performing Organization Address City/State/[facility] Co de Phone Number [facility] [address] [place] [phone] * Prothrombin Time-INR (06/27/2024 11:37 AM EST) Prothrombin Time 11.8 10.9 - 12.4 SEC [facility] INTERNATIONAL NORM RATIO 1.0 0.9 - 1.1 [facility] Comment:INTERNATIONAL NORMAL IZED RATIO (INR) REFERENCE [...] ORDERAB LES Final Result Performing Organization Address [facility] de Phone Number [facility] [address] [place] [address] [phone] * Hold Green Gel (06/27/2024 11:36 AM EST) Only the most recent of2 resultswithin the time period is included. Hold Green Gel See Note [facility] Comment:Specimen held untest ed for 24 hours; Call to requestChemistry testing. 06/27/2024 11:3 6 AM EST 06/27/2024 12:01 PM EST us Generic External Data Provider HISTORICAL/NON OR DERABLE LABS Final Result Performing Organization Address [facility] de Phone Number [facility] [address] [place] [phone] * Hold Lavender - Possible Hematology (06/27/2024 11:36 AM EST) Only the most recent of2 resultswithin the time period is included. Hold Lavender - Possible Hematololgy SEE NOTE [facility] Comment:Specimen will be hel d untested for 8 hours. Call Hematologyif testing is desired. 06/27/2024 11:3 6 AM EST 06/27/2024 12:01 PM EST us Generic External Data Provider HISTORICAL/NON OR DERABLE LABS Final Result Performing Organization Address [facility] Co de Phone Number [facility] [address] [place] [address] [phone] * Lactic Acid (06/27/2024 11:36 AM EST) Pathologist [facility] Lactic Acid 1.0 0.5 - 2.0 mmol/L [facility] 06/27/2024 11:3 6 AM EST 06/27/2024 11:45 AM EST Generic External Data Provider LAB BLOOD ORDERAB LES Final Result Performing Organization Address [facility] Phone Number [facility] [address] [place] [phone] * High Sensitivity Troponin I (06/27/2024 10:42 AM EST) [facility] TROPONIN I HIGH SENSITIVITY 21.0 <3.5 - 35.0 ng/L [facility] Comment:The [place] high sens itivity Troponin-I results should beused in conjunction with other diagnostic information suchas ECG, clinical observations and information, and patientsymptoms to aid in the diagnosis of MD. 06/27/2024 10:4 2 AM EST 06/27/2024 10:45 AM EST [employer] External Data Provider LAB BLOOD ORDERAB LES Final Result Performing Organization Address [facility] Phone Number [facility] [address] [place] [phone] * (ABNORMAL) SARS-CoV-2 RNA, Influenza A/B, and RSV RNA, Ql NAAT (06/27/2024 10:42 AM EST) Pathologist [facility] Influenza A PCR POSITIVE(A) Negative [facility] Influenza B PCR NEGATIVE Negative [facility] Resp Syncy Virus RNA Qual PCR NEGATIVE Negative [facility] SARS COV2 PCR NEGATIVE Negative [facility] Comment:All test results mus t [...] use by authorized laboratories.Testing performed on the [employer] GeneXpert utilizingreal-time RT-PCR.All SARS CoV2 and positive influenza A/B results arereported to [facility]. 06/27/2024 10:4 2 AM EST 06/27/2024 10:45 AM EST us Generic External Data Provider LAB MICROBIOLOGY - GENERAL ORDERABLES Final Result [facility] [address] [place] [phone] * (ABNORMAL) CBC auto differential (06/27/2024 10:42 AM EST) White Blood Count 3.2(L) 4.8 - 10.8 X10*3/uL [facility] Red Blood Count 4.31(L) 4.60 - 5.80 X10*6/uL [facility] Hemoglobin 13.7(L) 14.0 - 18.0 g/dl [facility] Hematocrit 42.1 42.0 - 52.0 % [facility] Mean Corpuscular Volume 97.7 80.0 - 98.0 fL [facility] Mean Corpuscular Hemoglobin 31.8 27.0 - 33.0 pg [facility] Mean Corpuscular HGB Conc 32.5 31.0 - 36.0 g/dl [facility] Red Cell Distribution Width 12.6 11.0 - 16.0 % [facility] Platelet Count 102(L) 160 - 400 X10*3/uL [facility] Comment:Test was verified by repeat analysis. Mean Platelet Volume 9.9 9.4 - 12.4 fL [facility] Neutrophils Percent Auto 65.1 45 - 73 % [facility] Imm Gran Pct Auto 0.6(H) 0.0 - 0.4 % [facility] Lymphocytes Percent Auto 23.5 20 - 40 % [facility] Monocytes Percent Auto 10.5 2 - 11 % [facility] Eosinophils Percent Auto 0.0 0 - 4 % [facility] Basophils Percent Auto 0.3 0 - 2 % [facility] NRBC Pct Auto 0.0 0.0 - 0.2 /100WBC [facility] Neutrophils Absolute Auto 2.1 2.0 - 8.3 x10*3/uL [facility] Imm Gran Abs Auto 0.02 0.00 - 0.03 X10*3/uL [facility] Lymphocytes Absolute Auto 0.8(L) 1.2 - 4.9 X10*3/uL [facility] Monocytes Absolute Auto 0.3 0.1 - 1.2 X10*3/uL [facility] Eosinophils Absolute Auto 0.0 0.0 - 0.4 X10*3/uL [facility] Basophils Absolute Auto 0.0 0.0 - 0.2 X10*3/uL [facility] NRBC Abs Auto 0.000 0.0 - 0.012 X10*3/uL [facility] 06/27/2024 10:4 2 AM EST 06/27/2024 10:45 AM EST us Generic External Data Provider LAB BLOOD ORDERAB LES Final Result [facility] [address] [place] [phone] * B Type Natriuretic Peptide (BNP) (06/27/2024 10:42 AM EST) B Type Natriuretic Peptide 41 <100 pg/mL [facility] Comment:For those patients w ho are being treated with Natrecor(nesiritide, recombinant BNP), BNP testing should beperformed at least two hours post treatment in order toensure that only endogenous levels of BNP are detected. 06/27/2024 10:4 2 AM EST 06/27/2024 10:45 AM EST us Generic External Data Provider LAB BLOOD ORDERAB LES Final Result Performing Organization Address [facility] de Phone Number [facility] [address] [place] [phone] * Hepatic Function Panel (06/27/2024 10:42 AM EST) Bilirubin, Total 0.2 0.0 - 1.0 mg/dL [facility] Bilirubin, Direct <0.2 0.0 - 0.5 mg/dL [facility] Aspartate Amino Transferase 28 5 - 37 U/L [facility] Alanine Aminotransferase 10 0 - 40 U/L [facility] Total Protein 6.6 6.5 - 8.0 g/dL [facility] Albumin Level 3.6 3.5 - 5.0 g/dL [facility] Alkaline Phosphatase 84 39 - 117 U/L [facility] 06/27/2024 10:4 2 AM EST 06/27/2024 10:45 AM EST us Generic External Data Provider LAB BLOOD ORDERAB LES Final Result Performing Organization Address [facility] Phone Number [facility] [address] [place] [phone] * XR Chest 2 Views (06/27/2024 9:55 AM EST) Anatomical Region Laterality Modality Chest Radiographic Iliana ging 06/27/2024 9:55 AM EST Narrative 06/27/2024 11:05 AM EST ? [facility] ?[address] ?[place] [address] ?XRay Report ? Signed ? Patient: Christopher,Ifeanyi A ?MR#: [id number] ?? [id number] ? : 1950 ?Acct:[id number] ? Age/Sex: 73 / M ?ADM Date: 02/24/25 ? Loc: HO.ED ? Attending Dr: ? Ordering Physician: Angy Abbott DO ?? Date of Service: 06/27/24 ?? Procedure(s): XR chest 2V ?? Accession Number(s): [id number] ? cc: Angy Abbott DO; Name,Jamie DURHAM [...] DD/ 0955 ? TD/TT: 06/27/24 1059 ? Six Pack Packer: ? Procedure Note Marquez, Chino - 06/27/2024 [place] [address] XRay Report Signed Patient: Ifeanyi White [facility]#: [id number] : 1950cct:[id number] Age/Sex: 73 / MADM Date: 06/27/24 Loc: HO.ED Attending Dr: Ordering Physician: Angy Abbott DO Date of Service: 06/27/24 Procedure(s): XR chest 2V Accession Number(s): [id number] cc: Angy Abbott DO; Name,Jamie DURHAM EXAMINATION: [...] 06/27/24 1102 DD/ 0955 TD/TT: 06/27/24 1059 Six Pack Packer: [facility] External Provider IMG XR PROCEDURES Final Result * Lipid Panel, Standard (04/11/2022 9:26 AM EST) Cholesterol, Total 149 <200 mg/dL [facility] HDL Cholesterol 86 > OR = 40 mg/dL [facility] [employer] Triglycerides 54 <150 mg/dL [facility] LDL Cholesterol 50 mg/dL (calc) [facility] Comment: Reference range: <100 Desirable range <100 mg/dL for primary prevention; ?? <70 mg/dL for patients with CHD or diabetic patients with > or = 2 CHD risk factors. LDL-C is now calculated using the Fredy-Ann Marie calculation, which is a validated novel method providing better accuracy than the Friedewald equation in the estimation of LDL-C. Fredy SS et al. JEAN. 2013;310(19): 2412-3611 (http://education.[employer]/faq/OVA186) Chol/HDLC Ratio 1.7 <5.0 (calc) [facility] Non-HDL Cholesterol 63 <130 mg/dL (calc) [facility] Comment: For patients with diabetes plus 1 major ASCVD risk factor, treating to a non-HDL-C goal of <100 mg/dL (LDL-C of <70 mg/dL) is considered a therapeutic option. Blood Venous blood specimen / Unknown 04/11/2022 9:26 AM EST 04/11/2022 9:26 AM EST Narrative [facility] - 04/11/2022 9:46 PM EST FASTING:YES FASTING: YES us Jamie Garcia MD LAB BLOOD ORDERABLES Final Resul t [facility] [address], [place] [address] [facility] [address], [place] [address] * Hm Colonoscopy (11/17/2016 12:06 PM EDT) Colonoscopy Normal Normal Narrative Maria Esther Zhao - 11/17/2016 12:06 PM EDT Recommended 10 years follow up Historical Provider HEALTH MAINTENANCE Final Result from Last 3 Months or Most Recently Relevant to Health Maintenance [place] [address] [address] - [employer] Care Teams Geography Faculty Member Relationship Specialty Start Date End Date Name, MD Jamie [address] [place] [address] PCP - General Family Medicine 10/29/15
--- OUTSIDE RECORDS SUMMARY | 2024-07-06 16:40 | XMS_ITS | Encounter Summary ---
Author Organization [facility] Address [address] [facility] [address]t [place] [address] Care Team Providers Care Manager Home Name Role Phone Name, Jamie DURHAM Primary Care Provider [phone] Reason for Visit * Reason Comments Med Refill Encounter Details Date Type Department Care Team ([facility] st Contact Info) Description 08/10/2023 Refill [facility] [address] [place], [place] [phone] Name, MD Jamie [address] [place] [address] Social History Tobacco Use Types Packs/Day Years [...] Description 07/08/2024 2:00 PM EST Office Visit [facility] [address] [place] [address] Macy Amador NP [address] [place] [address] 08/11/2024 11:15 AM EDT Office Visit [address] [address] NameJamie MD [address] [place] [address] documented as of this encounter Visit Diagnoses Not on filedocumented in this encounter Additional Health Concerns Assessment Noted Time PHQ-9 Depression Total Score: 0 07/02/19 24 10:12 AM EST documented as of this encounter Care Teams Manager Home Relationship Specialty Start Date End Date Name, MD Jamie [address] [place] [phone] PCP - General Family Medicine 10/29/15 documented as of this encounter
--- OUTSIDE RECORDS SUMMARY | 2024-07-06 16:40 | XMS_ITS | Encounter Summary ---
Author Organization [employer] [facility] Address [address] [place] [address] 7[address] [place] [address] Care Team Providers Care Rpg Programmer Analyst Name Role Phone Name, Jamie DURHAM Primary Care Provider [phone] Encounter Details Date Type Department Care Team (Late st Contact Info) Description 10/03/[address] [address] NameJamie MD [address] [place] [phone] Social History Tobacco Use Types Packs/Day Years [...] Description 07/08/2024 2:00 PM EST Office Visit [address] [address] Macy Amador NP [address] [place] [address] 08/11/2024 11:15 AM EDT Office Visit [address] [address] Jamie Garcia MD [address] [place] [address] documented as of this encounter Procedures Procedure [...] on filedocumented in this encounter Care Teams Rpg Programmer Analyst Relationship Specialty Start Date End Date Name, MD Jamie [address] [place] [address] PCP - General Family Medicine 10/29/15 documented as of this encounter
--- OUTSIDE RECORDS SUMMARY | 2024-07-06 16:40 | XMS_ITS | Encounter Summary ---
Author Organization [employer] Address [address] [facility] [address] [place] [address] Care Team Providers Care Adult Psychiatrist Name Role Phone Name, Jamie DURHAM Primary Care Provider [phone] Reason for Visit * Reason Onset Date Comments chartprep 07/06/2024 Encounter Details Date Type Department Care Team ([facility] st Contact Info) Description 07/06/2024 Telephone [facility] [address] [place], [place] [phone] Librado Cerna MA chartprep Social History Tobacco Use Types Packs/Day Years [...] encounter Miscellaneous Notes * Telephone Encounter - Librado Cerna MA - 07/06/2024 2:34 PM EST Chart Prep Labs: done Images: done Vaccines due: yes covid,influenza,zoster, RSV Referrals: complete Screenings: n/a Overdue care gaps: Sbirt, SDOH, PHQ-9, Oral Health, MAXX-7 documented in this encounter Plan of Treatment Upcoming Encounters Date Type Department Care Team (Late st Contact Info) Description 07/08/2024 2:00 PM EST Office Visit [facility] [address] [place] [address] Macy Amador NP [address] [place] [phone] 08/11/2024 11:15 AM EDT Office Visit [facility] [address] [place] [address] NameJamie MD [address] [place] [phone] documented as of this encounter Visit Diagnoses Not on filedocumented in this encounter Additional Health Concerns Assessment Noted Time PHQ-9 Depression Total Score: 0 07/02/19 24 10:12 AM EST documented as of this encounter Care Teams Adult Psychiatrist Relationship Specialty Start Date End Date Jamie Garcia MD [address] [place] [phone] PCP - General Family Medicine 10/29/15 documented as of this encounter
--- OUTSIDE RECORDS SUMMARY | 2024-07-06 16:40 | XMS_ITS | Encounter Summary ---
Author Organization [employer] Address [address] [facility] [address] [place] [address] Care Team Providers Care Envelope Folding Machine Adjuster Name Role Phone Name, Jamie DURHAM Primary Care Provider Reason for Visit * Reason Onset Date Comments Hospital Follow-up 07/04/2024 Encounter Details Date Type Department Care Team ([facility] st Contact Info) Description 07/04/2024 Telephone [facility] [address] [place], [place] [phone] Name, MD Jamie [address] [place] [address] Hospital Follow-up Social History Tobacco Use Types [...] from pt requesting a HDF appt. [facility]: [facility] Date of admission: 06/28 Discharge date: 06/30 Diagnosed: pneumonia, flu *Send message to [place] [facility] Coordinators [phone] martiniquais documented in this encounter Plan of Treatment Upcoming Encounters Date Type Department Care Team (Late st Contact Info) Description 07/08/2024 2:00 PM EST Office Visit [facility] [address] [place] [address] Macy Amador NP [address] [place] [address] 08/11/2024 11:15 AM EDT Office Visit [facility] [address] [place] [phone] Jamie Garcia MD [address] [place] [address] documented as of this encounter Visit Diagnoses Not on filedocumented in this encounter Additional Health Concerns Assessment Noted Time PHQ-9 Depression Total Score: 0 07/02/19 24 10:12 AM EST documented as of this encounter Care Teams Envelope Folding Machine Adjuster Relationship Specialty Start Date End Date Name, MD Jamie [address] [place] [address] PCP - General Family Medicine 10/29/15 documented as of this encounter
--- OUTSIDE RECORDS SUMMARY | 2024-07-06 16:40 | XMS_ITS | Encounter Summary ---
Author Organization [employer] Address [address] [facility] 7t [place] [address] Care Team Providers Care Field Training Agent Name Role Phone Name, Jamie DURHAM Primary Care Provider [phone] Reason for Visit * Reason Onset Date Comments Verbal Order 07/04/2024 Encounter Details Date Type Department Care Team ([facility] st Contact Info) Description 07/04/2024 Telephone [facility] [address] [place], [place] [phone] Name, MD Jamie [address] [place] [address] Verbal Order Social History Tobacco Use Types [...] EST TC placed to [facility] at the [facility] to give VO for the pt to have alf services twice a week for two weeks and then once a week for seven weeks if the pt requires it. * Telephone Encounter - Cory Vanessa - 07/04/2024 4:14 PM EST TC from [facility] with [facility] requesting verbal orders for alf services 2x a week for 2x weeks and decrease 1x a week for 7x weeks if needed .. [facility] [phone] documented in this encounter Plan of Treatment Upcoming Encounters Date Type Department Care Team (Late st Contact Info) Description 07/08/2024 2:00 PM EST Office Visit [facility] [address] [place] [phone] Appram, LILY Cavazos [address] [place] [address] 08/11/2024 11:15 AM EDT Office Visit [facility] [address] [place] [phone] Name, MD Jamie [address] [place] [address] documented as of this encounter Visit Diagnoses Not on filedocumented in this encounter Additional Health Concerns Assessment Noted Time PHQ-9 Depression Total Score: 0 07/02/19 24 10:12 AM EST documented as of this encounter Care Teams Field Training Agent Relationship Specialty Start Date End Date Name, MD Jamie [address] [place] [address] PCP - General Family Medicine 10/29/15 documented as of this encounter
== END 2024-07-06 15:44 | disposition home or self-care (01) ==
PROVIDERS: Emergency Provider Emergency Medicine
DX: R33.9 Retention of urine, unspecified (principal)
CPT/HCPCS: 36415; 51702; 51798; 80048; 81001; 85025; 87086; 99283; 99285

== ENCOUNTER → 2024-07-20 08:40 | Outpatient (BNVA) | payer OTHER, SELFPAY | PROVIDERS: Visit Provider Urology | DX: N40.1 Benign prostatic hyperplasia with lower urinary tract symptoms (principal) | CPT/HCPCS: 51700; 51798 ==

== ENCOUNTER 2024-08-11 11:40 | Outpatient (REF) | payer OTHER, SELFPAY ==
[2024-08-11 13:52] LABS: Anion Gap 11 (12-20); Blood Urea Nitrogen 22 mg/dL (9-16); Calcium 9.2 mg/dL (8.4-10.2); Carbon Dioxide 32 mmol/L (22-29); Chloride 98 mmol/L (96-108); Estimated Glomerular Filt Rate > 60; Glucose Random 75 mg/dL (60-115); Potassium 4.6 mmol/L (3.3-5.1); Sodium 136 mmol/L (135-145)
--- OUTSIDE RECORDS SUMMARY | 2024-08-11 14:15 | XMS_ITS | Encounter Summary ---
Author Organization [employer] Address [address] [facility] [address] [place] [address] Care Team Providers Care Auto Bumper Straightener Name Role Phone Name, Jamie DURHAM Primary Care Provider [phone] Reason for Visit * Reason Comments Med Refill Encounter Details Date Type Department Care Team ([facility] st Contact Info) Description 10/12/2023 Refill [facility] [address] [place], [place] [phone] Name, MD Jamie [address] [place] [address] Social History Tobacco Use Types Packs/Day Years [...] Care Team (Late st Contact Info) Description 08/19/2024 1:00 PM EDT Office Visit [facility] [address] [place] [address] Kelly Guerra documented as of this encounter Visit Diagnoses Not on filedocumented in this encounter Additional Health Concerns Assessment Noted Time PHQ-9 Depression Total Score: 0 07/02/19 24 10:12 AM EST documented as of this encounter Care Teams Auto Bumper Straightener Relationship Specialty Start Date End Date Name, MD Jamie [address] [place] [address] PCP - General Family Medicine 10/29/15 Lia A 07/02/24 documented as of this encounter
--- OUTSIDE RECORDS SUMMARY | 2024-08-11 14:15 | XMS_ITS | Encounter Summary ---
Author Organization [employer] Address [address] [facility] [address] [place] [address] Care Team Providers Care Neighborhood Coordinator Name Role Phone Name, Jamie DURHAM Primary Care Provider [phone] Encounter Details Date Type Department Care Team (Late st Contact Info) Description 06/14/2023 Abstract [facility] [address] [place], [place] [phone] Name, MD Jamie [address] [place] [address] Social History Tobacco Use Types Packs/Day Years [...] Description 08/19/2024 1:00 PM EDT Office Visit [facility] [address] [place] [address] Kelly Guerra documented as of this encounter Visit Diagnoses Not on filedocumented in this encounter Care Teams Neighborhood Coordinator Relationship Specialty Start Date End Date Name, MD Jamie [address] [place] [address] PCP - General Family Medicine 10/29/15 [place] 07/02/24 documented as of this encounter
--- OUTSIDE RECORDS SUMMARY | 2024-08-11 14:15 | XMS_ITS | Clinical Summary ---
Author Organization [employer] Address [address] [place] [address] 7[address] [place] [address] Care Team Providers Care Chief Ophthalmic Technician Name Role Phone Name, Jamie DURHAM Primary Care Provider [phone] Allergies Active Allergy Reactions Criticality Noted Date Comments Pollen Extract 07/02/2011 Other reaction(s): Runny Nose/Rhinitis Watery eyes, sneezing Medications albuterol 108 (90 Base) MCG/ACT inhaler Inhale 2 puffs every 4 (four) hours if needed. 2 Active hydrocortisone (Proctosol HC) 2.5 % rectal cream Insert into the rectum 2 times daily. 28 g 2 3 Active furosemide (Lasix) 40 MG tablet Take [...] 30 tablet 11 4 04/06/20 25 Active finasteride (Proscar) 5 MG tablet Take 1 tablet by mouth Once per day. 5 Active timolol (Timoptic) 0.5 % ophthalmic solution Administer 1 drop into the left eye in the morning. 5 Active solifenacin (VESIcare) 5 MG tablet Take 1 tablet by mouth Once per day. 4 Active docusate sodium (Colace) 100 MG capsuleIndicatio ns:Constipation, unspecified constipation type Take 1 capsule (100 mg) by mouth 2 times daily for 10 days. 20 capsule 5 07/19/19 25 Active Problems Problem Noted Date Diagnosed [...] Blood work normal including screening for subclinical Neligh and 24 urine metanephrines. His MRI was [...] stone 10/09/2017 Overview (09/15/2023): He follows with [facility] Has renal stones BPH Benign non [...] 09/15/2023 Overview (03/13/2023): One episode uncomplicated at [facility] 09/2016 Normal colonoscopy the same year Repeat colonoscopy recommended in 10 years Cervical radiculitis 03/18/2012 024 Neck pain 03/18/2012 03/13/2023 Low back pain 09/24/2009 07/02/2023 Groin pain 09/24/2009 03/13/2023 Neuropathic pain syndrome (non-herpetic) 09/24/2009 03/13/2023 Encounters Date Type Department Care Team Description 08/11/2024 11:15 AM EDT Office Visit [facility] [address] [place] [phone] Jamie Garcia MD Essential hypertension (Primary Dx); Chronic diastolic congestive heart failure (CMS/HCC); Benign prostatic hyperplasia (BPH) with straining on urination 08/11/2024 Orders Only GENERIC EXTERNAL DATA DEPARTMENT Provider, Generic External Data 08/11/2024 Travel 07/08/2024 2:00 PM EST Office Visit [address] [address] Macy Amador NP Constipation, unspecified constipation type (Primary Dx); skilled nursing current use of diuretic; Hospital discharge follow-up 07/08/2024 Travel 07/06/[address] [address] Librado Cerna MA chartprep 07/05/2024 Orders Only [facility] [address] [place] [phone] Jamie Garcia MD 07/04/[address] [address] Jamie Garcia MD Verbal Order 07/04/2024 Patient Outreach [facility] [address] [place] [address] Name, MD Jamie Transition Of Care (Tcm) (HDF scheduled) 07/04/2024 Telephone [facility] [address] [place] [address] Jamie Garcia MD Hospital Follow-up 06/27/2024 Orders Only [facility] External Provider, [facility] 06/08/2024 Refill [facility] [address] [place] [address] NameJamie MD from Last 3 Months Immunizations Name Administration [...] Date Recorded Patient Health Questionnaire-9 Score 0 07/08/2024 Patient Health Questionnaire-9 Score 0 07/08/2024 Last PHQ-9: Questionnaire Data Not on file 0 07/08/2024 Housing Stability Answer Date Recorded What is your housing situation today? I have taylor frausto 07/08/[address] you li ve. Do you have problems with any of the following? None of the above 07/08/2024 Food Insecurity Answer Date Recorded Within the past 12 months, y ou worried that your food would run out before you got money to buy more: Never True 07/08/2024 Within the past 12 months,th e food you bought just didn't last and you didn't have enough money to get more: Never True 11/2024 Transportation Answer Date Recorded In the past 12 months, has l ack of transportation kept you from medical appts, meetings, work or from getting things needed for daily living? No 07/08/2024 Utilities Answer Date Recorded In the past 12 months, has t he electric, gas, oil or water company threatened to shut off services in your home? No 07/08/2024 Depression Answer Date Recorded Patient Health Questionnaire-2 Score 0 07/08/2024 Internet Access Answer Date Recorded Internet Access Q1 No 07/08/2024 Internet Access Q2 Not on file 07/08/2024 Sex and Gender Information Value Date Recorded Sex Assigned at Male 03/03/2022 10:25 AM EDT Legal Sex Male 10:25 AM EDT Gender Identity Male 03/03/2022 10:25 AM EDT Sexual Orientation Straight 03/03/2022 10 :25 AM EDT Last Filed Vital Signs Vital Sign Reading Time Taken Comments Blood Pressure 137/79 08/11/2024 11:25 AM EDT Pulse 75 08/11/2024 10:36 AM EDT Temperature 36.6 ??C (97.8 ??F) 08/11/2024 10:36 AM E DT Respiratory Rate 12 08/11/2024 10:36 AM EDT Oxygen Saturation 92% 08/11/2024 10:36 AM EDT Inhaled Oxygen Concentration - - Weight 41.6 kg (91 lb 12.8 oz) 08/11/2024 10:36 AM EDT Height 127 cm (4' 2 ) 08/11/2024 10:36 AM EDT Body Mass Index 25.82 08/11/2024 10:36 AM EDT Plan of Treatment Upcoming Encounters Date Type Department Care Team (Late st Contact Info) Description 08/19/2024 1:00 PM EDT Office Visit [facility] [address] [place] [phone] Kelly Guerra Health Maintenance Due Date Last Done Comments CT Colonography 1950 FIT DNA/Cologuard 1950 FIT 1950 FOBT 1950 Sigmoidoscopy 1950 Hepatitis C Screening 1968 Zoster Vaccines (1 of 2) 2000 RSV Patients and Patients Aged 60 years or older (1 - Risk 60-74 years 1-dose series) 2010 COVID-19 Vaccine (3 - 2023-2 5 season) 2024 06/14/2021, 05/24/2021 Influenza Vaccine (#1) 2024 02/17/2018 Alcohol/Substance Use Screening 07/08/2025 07/08/2024 Depression Screening 07/08/2025 07/08/2024, 07/08/2024 SDOH Screening 07/08/2025 07/08/2024 Tobacco Screening 08/11/2025 08/11/2024 DTaP/Tdap/Td Vaccines (2 - T d or [...] Associated Diagnosis Comments BASIC METABOLIC PANEL Routine 08/11/2024 11:43 AM EDT BASIC METABOLIC PANEL Routine 07/05/2024 11:02 AM [...] 2 VIEWS Routine 06/27/2024 9:55 AM EST LIPID PANEL, STANDARD Routine 04/11/2022 9:26 AM EST Essential hypertension HM COLONOSCOPY Routine 11/17/2016 12:06 PM EDT from Last 3 Months or Most Recently Relevant to Health Maintenance Results * (ABNORMAL) Basic Metabolic Panel (08/11/2024 11:43 AM EDT) Only the most recent of3 resultswithin the time period is included. Sodium 136 135 - 145 mmol/L [facility] Potassium 4.6 3.3 - 5.1 mmol/L [facility] Chloride 98 96 - 108 mmol/L [facility] Carbon Dioxide 32(H) 22 - 29 mmol/L [facility] Anion Gap 11(L) 12 - 20 [facility] Urea Nitrogen (BUN) 22(H) 9 - 16 mg/dL [facility] Creatinine, Serum 0.72 0.5 - 1.4 mg/dL [facility] Estimated Glomerular Filt Rate >60 [facility] Comment:Chronic Kidney Disea se: Estimated GFR < 60 mL/min/1.84s8Kbraem Kidney Disease: Estimated GFR < 15 mL/min/1.73m2 Glucose 75 60 - 115 mg/dL [facility] Calcium 9.2 8.4 - 10.2 mg/dL [facility] 08/11/2024 11:4 3 AM EDT 08/11/2024 1:25 PM EDT us Generic External Data Provider LAB BLOOD ORDERAB LES Final Result Performing Organization Address City/State/[facility] Co de Phone Number [facility] [address] [place] [address] [phone] * XR Chest 1 View (06/29/2024 7:55 AM EST) Anatomical Region Laterality Modality Chest Radiographic Iliana ging 06/29/2024 7:55 AM EST Narrative 06/29/2024 8:40 AM EST ? [facility] ?[address] ?[place] [address] ?XRay Report ? Signed ? Patient: Christopher,Ifeanyi A ?MR#: [id number] ?? [id number] ? : 1950 ?Acct:[id number] ? Age/Sex: 73 / M ?ADM Date: 02/24/25 ? Loc: HO.[facility]C ?473-1 ? Attending Dr: María Phan BAKING ASSISTANT ? Ordering Physician: María Phan NP ?? Date of Service: 06/29/24 ?? Procedure(s): XR chest 1V ?? Accession Number(s): [id number] ? cc: Name,Jamie DURHAM; María Phan NP [...] DD/ 0755 ? TD/TT: 06/29/24 0813 ? [employer] Plasma Etcher: ? Procedure Note Donotvitointerpreter, Image - 06/29/2024 [place] [address] XRay Report Signed Patient: Ifeanyi White AMR#: [id number] : 1950cct:[id number] Age/Sex: 73 / MADM Date: 06/27/24 Loc: [facility] 473-[address]: María Phan NP Ordering Physician: María Phan NP Date of Service: 06/29/24 Procedure(s): XR chest 1V Accession Number(s): [id number] cc: Jamie Garcia MD; María Phan NP [...] Fabian Elizabeth MDin OV> 06/29/24 0837 DD/ TD/TT: 06/29/24 0813 [employer] Plasma Etcher: [facility] External Provider IMG XR PROCEDURES Final Result * CTA Chest PE Protocal (06/27/2024 1:24 PM EST) Anatomical Region Laterality Modality Body, Chest Computed Tomogra phy 06/27/2024 1:24 PM EST Narrative 06/27/2024 2:06 PM EST ? [facility] ?[address] ?[place] [address] ? CT Scan Report ? Signed ? Patient: Ifeanyi White ?MR#: [id number] ?? [id number] ? : 1950 ?Acct:[id number] ? Age/Sex: 73 / M ?ADM Date: 06/27/24 ? Loc: HO.ED ? Attending Dr: ? Ordering Physician: Ailin Gonzales ?? Date of Service: 06/27/24 ?? Procedure(s): CT angio chest PE protocol ?? Accession Number(s): [id number] ? cc: Ailin Gonzales; Name,Jamie DURHAM ? Report Number: ?? [id number]: Total DLP = ??209.00 mGy-cm ?? EXAMINATION: [...] DD/ 1324 ? TD/TT: 06/27/24 1355 ? [employer] Plasma Etcher: ? Procedure Note Chino Zayas - 06/27/[address] [address] [address] Scan Report Signed Patient: Ifeanyi White AMR#: [id number] : 1Acct:[id number] Age/Sex: 73 / MADM Date: 06/27/24 Loc: HO.ED Attending Dr: Ordering Physician: Ailin Gonzales Date of Service: 06/27/24 Procedure(s): CT angio chest PE protocol Accession Number(s): [id number] cc: Ailin Gonzales; Jamie Garcia MD Report Number: [id number]: Total DLP = 209.00 mGy-cm EXAMINATION: CT [...] 06/27/24 1403 DD/ 1324 TD/TT: 06/27/24 1355 [employer] Plasma Etcher: [facility] External Provider IMG CT PROCEDURES Final Result * (ABNORMAL) VENOUS BLOOD GAS (06/27/2024 11:58 AM EST) VBG pH 7.43 7.32 - 7.43 [facility] Comment:METER #: [id number] additional_comment: CbAbliai VBG PCO2 47 mmHg [facility] Comment:METER #: [id number] additional_comment: CbAbliai VBG PO2 54 mmHg [facility] Comment:METER #: [id number] additional_comment: CbAbliai VBG Base Excess 6.3 mmol/L [facility] Comment:METER #: [id number] additional_comment: CbAbliai VBG HCO3 31(H) 22 - 26 mmol/L [facility] Comment:METER #: [id number] additional_comment: CbAbliai O2 Sat, [place] 87.0 % [facility] Comment:METER #: [id number] additional_comment: CbAbliai 06/27/2024 11:5 8 AM EST 06/27/2024 12:15 PM EST us Generic External Data Provider LAB BLOOD ORDERAB LES Final Result [facility] [address] [place] [phone] * Prothrombin Time-INR (06/27/2024 11:37 AM EST) Prothrombin Time 11.8 10.9 - 12.4 SEC [facility] INTERNATIONAL NORM RATIO 1.0 0.9 - 1.1 [facility] Comment:INTERNATIONAL NORMAL IZED RATIO (INR) [...] ORDERAB LES Final Result Performing Organization Address [facility] Co de Phone Number [facility] [address] [place] [address] [phone] * Hold Green Gel (06/27/2024 11:36 AM EST) Only the most recent of2 resultswithin the time period is included. Hold Green Gel See Note [facility] Comment:Specimen held untest ed for 24 hours; Call to requestChemistry testing. 06/27/2024 11:3 6 AM EST 06/27/2024 12:01 PM EST Generic External Data Provider HISTORICAL/NON OR DERABLE LABS Final Result Performing Organization Address [facility] Co de Phone Number [facility] [address] [place] [address] [phone] * Hold Lavender - Possible Hematology (06/27/2024 11:36 AM EST) Only the most recent of2 resultswithin the time period is included. Hold Lavender - Possible Hematololgy SEE NOTE [facility] Comment:Specimen will be hel d untested for 8 hours. Call Hematologyif testing is desired. 06/27/2024 11:3 6 AM EST 06/27/2024 12:01 PM EST us Generic External Data Provider HISTORICAL/NON OR DERABLE LABS Final Result Performing Organization Address [facility] Co de Phone Number [facility] [address] [place] [address] [phone] * Lactic Acid (06/27/2024 11:36 AM EST) Lactic Acid 1.0 0.5 - 2.0 mmol/L [facility] 06/27/2024 11:3 6 AM EST 06/27/2024 11:45 AM EST Generic External Data Provider LAB BLOOD ORDERAB LES Final Result Performing Organization Address [facility]/ZIP Co de Phone Number [facility] [address] [place] [phone] * High Sensitivity Troponin I (06/27/2024 10:42 AM EST) [facility] TROPONIN I HIGH SENSITIVITY 21.0 <3.5 - 35.0 ng/L [facility] Comment:The [place] high sens itivity Troponin-I results should beused in conjunction with other diagnostic information suchas ECG, clinical observations and information, and patientsymptoms to aid in the diagnosis of [place]. 06/27/2024 10:4 2 AM EST 06/27/2024 10:45 AM EST Generic External Data Provider LAB BLOOD ORDERAB LES Final Result Performing Organization Address [facility] Co de Phone Number [facility] [address] [place] [phone] * (ABNORMAL) SARS-CoV-2 RNA, Influenza A/B, and RSV RNA, Ql NAAT (06/27/2024 10:42 AM EST) [facility] Influenza A PCR POSITIVE(A) Negative [facility] Influenza B PCR NEGATIVE Negative [facility] Resp Syncy Virus RNA Qual PCR NEGATIVE Negative [facility] SARS COV2 PCR NEGATIVE Negative [facility] Comment:All test results mus t [...] use by authorized laboratories.Testing performed on the [employer] GeneXpert utilizingreal-time RT-PCR.All SARS CoV2 and positive influenza A/B results arereported to [facility]. 06/27/2024 10:4 2 AM EST 06/27/2024 10:45 AM EST us Generic External Data Provider LAB MICROBIOLOGY - GENERAL ORDERABLES Final Result [facility] [address] [place] [address] [phone] * (ABNORMAL) CBC auto differential (06/27/2024 10:42 AM EST) White Blood Count 3.2(L) 4.8 - 10.8 X10*3/uL [facility] Red Blood Count 4.31(L) 4.60 - 5.80 X10*6/uL [facility] Hemoglobin 13.7(L) 14.0 - 18.0 g/dl [facility] Hematocrit 42.1 42.0 - 52.0 % [facility] Mean Corpuscular Volume 97.7 80.0 - 98.0 fL [facility] Mean Corpuscular Hemoglobin 31.8 27.0 - 33.0 pg [facility] Mean Corpuscular HGB Conc 32.5 31.0 - 36.0 g/dl [facility] Red Cell Distribution Width 12.6 11.0 - 16.0 % [facility] Platelet Count 102(L) 160 - 400 X10*3/uL [facility] Comment:Test was verified by repeat analysis. Mean Platelet Volume 9.9 9.4 - 12.4 fL [facility] Neutrophils Percent Auto 65.1 45 - 73 % [facility] Imm Gran Pct Auto 0.6(H) 0.0 - 0.4 % [facility] Lymphocytes Percent Auto 23.5 20 - 40 % [facility] Monocytes Percent Auto 10.5 2 - 11 % [facility] Eosinophils Percent Auto 0.0 0 - 4 % [facility] Basophils Percent Auto 0.3 0 - 2 % [facility] NRBC Pct Auto 0.0 0.0 - 0.2 /100WBC [facility] Neutrophils Absolute Auto 2.1 2.0 - 8.3 x10*3/uL [facility] Imm Gran Abs Auto 0.02 0.00 - 0.03 X10*3/uL [facility] Lymphocytes Absolute Auto 0.8(L) 1.2 - 4.9 X10*3/uL [facility] Monocytes Absolute Auto 0.3 0.1 - 1.2 X10*3/uL [facility] Eosinophils Absolute Auto 0.0 0.0 - 0.4 X10*3/uL [facility] Basophils Absolute Auto 0.0 0.0 - 0.2 X10*3/uL [facility] NRBC Abs Auto 0.000 0.0 - 0.012 X10*3/uL [facility] 06/27/2024 10:4 2 AM EST 06/27/2024 10:45 AM EST Generic External Data Provider LAB BLOOD ORDERAB LES Final Result Performing Organization Address City/[facility] Co de Phone Number [facility] [address] [place] [phone] * B Type Natriuretic Peptide (BNP) (06/27/2024 10:42 AM EST) Pathologist [facility] B Type Natriuretic Peptide 41 <100 pg/mL [facility] Comment:For those patients w ho are being treated with Natrecor(nesiritide, recombinant BNP), BNP testing should beperformed at least two hours post treatment in order toensure that only endogenous levels of BNP are detected. 06/27/2024 10:4 2 AM EST 06/27/2024 10:45 AM EST Generic External Data Provider LAB BLOOD ORDERAB LES Final Result Performing Organization Address [facility] de Phone Number [facility] [address] [place] [phone] * Hepatic Function Panel (06/27/2024 10:42 AM EST) Pathologist [facility] Bilirubin, Total 0.2 0.0 - 1.0 mg/dL [facility] Bilirubin, Direct <0.2 0.0 - 0.5 mg/dL [facility] Aspartate Amino Transferase 28 5 - 37 U/L [facility] Alanine Aminotransferase 10 0 - 40 U/L [facility] Total Protein 6.6 6.5 - 8.0 g/dL [facility] Albumin Level 3.6 3.5 - 5.0 g/dL [facility] Alkaline Phosphatase 84 39 - 117 U/L [facility] 06/27/2024 10:4 2 AM EST 06/27/2024 10:45 AM EST us Generic External Data Provider LAB BLOOD ORDERAB LES Final Result [facility] [address] [place] [address] [phone] * XR Chest 2 Views (06/27/2024 9:55 AM EST) Anatomical Region Laterality Modality Chest Radiographic Iliana ging 06/27/2024 9:55 AM EST Narrative 06/27/2024 11:05 AM EST ? [facility] ?[address] ?[place] [address] ?XRay Report ? Signed ? Patient: Ifeanyi White A ?MR#: [id number] ?? [id number] ? : 1950 ?Acct:[id number] ? Age/Sex: 73 / M ?ADM Date: 06/27/24 ? Loc: HO.ED ? Attending Dr: ? Ordering Physician: Angy Abbott DO ?? Date of Service: 06/27/24 ?? Procedure(s): XR chest 2V ?? Accession Number(s): [id number] ? cc: Angy Abbott DO; Name,Jamie DURHAM [...] DD/ 0955 ? TD/TT: 06/27/24 1059 ? [employer] Plasma Etcher: ? Procedure Note Donotuseinterpreter, Image - 06/27/2024 [place] [address] XRay Report Signed Patient: Ifeanyi White AMR#: [id number] : 1950cct:[id number] Age/Sex: 73 / MADM Date: 06/27/24 Loc: HO.ED Attending Dr: Ordering Physician: Angy Abbott DO Date of Service: 06/27/24 Procedure(s): XR chest 2V Accession Number(s): [id number] cc: Angy Abbott DO; Name,Jamie DURHAM EXAMINATION: [...] 06/27/24 1102 DD/ 0955 TD/TT: 06/27/24 1059 [employer] Plasma Etcher: [facility] External Provider IMG XR PROCEDURES Final Result * Lipid Panel, Standard (04/11/2022 9:26 AM EST) Cholesterol, Total 149 <200 mg/dL [facility] HDL Cholesterol 86 > OR = 40 mg/dL [facility] Triglycerides 54 <150 mg/dL [facility] LDL Cholesterol 50 mg/dL (calc) [facility] Comment: Reference range: <100 Desirable range <100 mg/dL for primary prevention; ?? <70 mg/dL for patients with CHD or diabetic patients with > or = 2 CHD risk factors. LDL-C is now calculated using the Fredy-Jesus calculation, which is a validated novel method providing better accuracy than the Friedewald equation in the estimation of LDL-C. Fredy SS et al. JEAN. 2013;310(19): 2586-7287 (http://education.BoxCast/faq/PJA319) Chol/HDLC Ratio 1.7 <5.0 (calc) [facility] Non-HDL Cholesterol 63 <130 mg/dL (calc) [facility] Comment: For patients with diabetes plus 1 major ASCVD risk factor, treating to a non-HDL-C goal of <100 mg/dL (LDL-C of <70 mg/dL) is considered a therapeutic option. Blood Venous blood specimen / Unknown 04/11/2022 9:26 AM EST 04/11/2022 9:26 AM EST Narrative [facility] - 04/11/2022 9:46 PM EST FASTING:YES FASTING: YES Jamie Garcia MD LAB BLOOD ORDERABLES Final Resul t [facility] [address], [place] [address] [facility] [address], [place] [address] * Colonoscopy (11/17/2016 12:06 PM EDT) Colonoscopy Normal Normal Narrative Maria Esther Zhao - 11/17/2016 12:06 PM EDT Recommended 10 years follow up us Historical Provider MD HEALTH MAINTENANCE Final Result from Last 3 Months or Most Recently Relevant to Health Maintenance Insurance [facility] - [facility] (O D-SNP) [facility]AL - [facility] Care Teams Chief Ophthalmic Technician Relationship Specialty Start Date End Date Name, MD Jamie [address] [place] [phone] PCP - General Family Medicine 10/29/15 Lia Gustavo 07/02/24
--- OUTSIDE RECORDS SUMMARY | 2024-08-11 14:15 | XMS_ITS | Encounter Summary ---
Author Organization [facility] Address [address] [place] [address] [address] [place] [address] Care Team Providers Care Medical Insurance Biller Name Role Phone Name, Jamie DURHAM Primary Care Provider [phone] Encounter Details Date Type Department Care Team (Latest Contact Info) Description 08/24/2018 Abstract [facility] CONVERSIONS Dental, Provider, DDS Social History Tobacco [...] Description 08/19/2024 1:00 PM EDT Office Visit [facility] [address] [place] [address] Kelly Guerra documented as of this encounter Visit Diagnoses Not on filedocumented in this encounter Care Teams Medical Insurance Biller Relationship Specialty Start Date End Date Name, MD Jamie [address] [place] [phone] PCP - General Family Medicine 10/29/15 [place] [facility] 07/02/24 documented as of this encounter
--- OUTSIDE RECORDS SUMMARY | 2024-08-11 14:15 | XMS_ITS | Encounter Summary ---
Author Organization [employer] Address [address] [place] [address] Care Team Providers Care Title 1 Tutor Name Role Phone Name, Jamie DURHAM Primary Care Provider [phone] Encounter Details Date Type Department Care Team (Latest Contact Info) Description 08/11/2024 Travel Social History Tobacco Use Types Packs/Day Years [...] [facility] [address] [place] [address] Kelly Guerra documented as of this encounter Visit Diagnoses Not on filedocumented in this encounter Additional Health Concerns Assessment Noted Time PHQ-9 Depression Total Score: 0 07/09/19 25 1:47 PM EST documented as of this encounter Care Teams Title 1 Tutor Relationship Specialty Start Date End Date Name, MD Jamie [address] [place] [address] PCP - General Family Medicine 10/29/15 [place] 07/02/24 documented as of this encounter
--- OUTSIDE RECORDS SUMMARY | 2024-08-11 14:15 | XMS_ITS | Encounter Summary ---
Author Organization [employer] Address 75 [facility] 7t [place] [address] Care Team Providers Care Research Study Assistant Name Role Phone Name, Jamie DURHAM Primary Care Provider [phone] Encounter Details Date Type Department Care Team ([facility] st Contact Info) Description 08/26/2023 Telephone [facility] MEDICINE [address] [place], [place] [phone] Name, MD Jamie [address] [place] [address] Social History Tobacco Use Types Packs/Day Years [...] Description 08/19/2024 1:00 PM EDT Office Visit [facility] ADULT DENTAL [address] [place] [address] Kelly Guerra documented as of this encounter Visit Diagnoses Not on filedocumented in this encounter Additional Health Concerns Assessment Noted Time PHQ-9 Depression Total Score: 0 07/02/19 24 10:12 AM EST documented as of this encounter Care Teams Research Study Assistant Relationship Specialty Start Date End Date Name, MD Jamie [address] [place] [address] PCP - General Family Medicine 10/29/15 Lia SOFIA 07/02/24 documented as of this encounter
--- OUTSIDE RECORDS SUMMARY | 2024-08-11 14:15 | XMS_ITS | Encounter Summary ---
Author Organization [employer] Address 75 [facility] 7t [place] [address] Care Team Providers Care Reconcilement Clerk Name Role Phone Name, Jaime DURHAM Primary Care Provider [phone] Reason for Visit * Reason Comments Hypertension Encounter Details Date Type Department Care Team ([facility] st Contact Info) Description 08/11/2024 11:15 AM EDT Office Visit [facility] MEDICINE [address] [place], [place] [phone] Name, MD Jamie [address] [place] [address] Essential hypertension (Primary Dx); Chronic diastolic congestive heart failure (CMS/HCC); Benign prostatic hyperplasia (BPH) with straining on urination Social History Tobacco Use Types Packs/Day Years [...] AM EDT documented as of this encounter Last Filed Vital Signs Vital Sign Reading [...] Mass Index 25.82 08/11/2024 10:36 AM EDT documented in this encounter Progress Notes * Jamie Garcia MD - 08/11/2024 11:15 AM EDT Subjective Patient ID: Ifeanyi White is a 73 y.o. male who presents for Hypertension. Patient comes for a follow-up visit and he is accompanied by his . He feels well. Since the last time I saw him he was admitted to [facility] with hypoxia secondary to influenza and exacerbation of heart failure with normal ejection fraction and he responded to the use of diuretics. He was discharged home on Tamiflu and antibiotics for possible community-acquired pneumonia and PO Lasix.The patient denies any chest pains or shortness of breath. He is using his medications as prescribed. Today his BP was initially elevated but repeat blood pressure was normal. He has chronic BPH withlower urinary tract symptoms. He tells me he had to use a Pacheco catheter for a few days but now he is voiding normally. He is followed with urology closely and has an upcoming appointment in the coming days. Review of Systems Constitutional: Negative for chills, fatigue and fever. HENT: Negative for sore throat. Respiratory: Negative for cough, chest tightness and shortness of breath. Cardiovascular: Negative for chest pain, palpitations and leg swelling. Gastrointestinal: Negative for abdominal pain and blood in stool. Visit Vitals BP 137/79 Pulse 75 Temp 97.8 ??F (36.6 ??C) (Temporal) Resp 12 Ht 4' 2 (1.27 m) Wt 91 lb 12.8 oz (41.6 kg) SpO2 92% BMI 25.82 kg/m?? Smoking Status Never BSA 1.21 m?? Objective Physical Exam Constitutional: Appearance: Normal appearance. Comments: Very short stature Cardiovascular: Rate and Rhythm: Normal rate and regular rhythm. Heart sounds: No murmur heard. Pulmonary: Effort: Pulmonary effort is normal. No respiratory distress. Breath sounds: No wheezing, rhonchi or rales. Abdominal: Palpations: Abdomen is soft. Tenderness: There is no abdominal tenderness. Musculoskeletal: Right lower leg: No edema. Left lower leg: No edema. Neurological: Mental Status: He is alert. Assessment/Plan Diagnoses and all orders for this visit: Essential hypertension Comments: Well-controlled. Continue losartan and Lasix. He is reminded to go for the BMP ordered at his previous visit. Chronic diastolic congestive heart failure (CMS/HCC) Comments: See above Benign prostatic hyperplasia (BPH) with straining on urination Comments: Currently voiding well. Continue Flomax, Proscar and Vesicare. He has appointment with urology. documented in this encounter Plan of Treatment Upcoming Encounters Date Type Department Care Team (Late st Contact Info) Description 08/19/2024 1:00 PM EDT Office Visit [facility] ADULT DENTAL [address] [place], [place] [phone] Kelly Guerra documented as of this encounter Visit Diagnoses Diagnosis Essential hypertension- Primary Unspecified essential hypertension Chronic diastolic congestive heart failure (CMS/HCC) Benign prostatic hyperplasia (BPH) with straining on urination documented in this encounter Additional Health Concerns Assessment Noted Time PHQ-9 Depression Total Score: 0 07/09/19 1:47 PM EST documented as of this encounter Care Teams Reconcilement Clerk Relationship Specialty Start Date End Date Name, MD Jamie [address] [place] [address] PCP - General Family Medicine 10/29/15 Lia SOFIA 07/02/24 documented as of this encounter
--- OUTSIDE RECORDS SUMMARY | 2024-08-11 14:15 | XMS_ITS | Encounter Summary ---
Author Organization [employer] [facility] Address [address] [place] [address] 7t [place] [address] Care Team Providers Care O And M Supervisor Name Role Phone Name, Jamie DURHAM Primary Care Provider [phone] Encounter Details Date Type Department Care Team (Late st Contact Info) Description 10/03/2022 Abstract [facility] MEDICINE [address] [place], [place] [phone] Name, MD Jamie [address] [place] [address] Social History Tobacco Use Types Packs/Day Years [...] Description 08/19/2024 1:00 PM EDT Office Visit [facility] ADULT DENTAL [address] [place] [address] Kelly Guerra documented as of this encounter Procedures Procedure Name Priority Date/Time Associated Diagnosis Comments HM COLONOSCOPY Routine 11/17/2016 12:06 PM EDT documented in this encounter Results * Hm Colonoscopy (11/17/2016 12:06 PM EDT) Colonoscopy Normal Normal Narrative Maria Esther Zhao - 11/17/2016 12:06 PM EDT Recommended 10 years follow up us Historical Provider HEALTH MAINTENANCE Final Result documented in this encounter Visit Diagnoses Not on filedocumented in this encounter Care Teams O And M Supervisor Relationship Specialty Start Date End Date Name, MD Jamie 230 [place] [address] PCP - General Family Medicine 10/29/15 Lia [facility] 07/02/24 documented as of this encounter
--- OUTSIDE RECORDS SUMMARY | 2024-08-11 14:15 | XMS_ITS | Encounter Summary ---
Author Organization [employer] Address 75 [facility] 7t [place] [address] Care Team Providers Care Operations Research Analyst Name Role Phone Name, Jamie DURHAM Primary Care Provider [phone] Reason for Visit * Reason Onset Date Comments Hospital Follow-up 07/04/2024 Encounter Details Date Type Department Care Team ([facility] st Contact Info) Description 07/04/2024 Telephone [facility] MEDICINE 230 [place], [place] [phone] Name, MD Jamie [address] [place] [address] Hospital Follow-up Social History Tobacco Use Types [...] from pt requesting a HDF appt. Hospital: [facility] Date of admission: 06/28 Discharge date: 06/30 Diagnosed: pneumonia, flu *Send message to [place] Clinical Care Coordinators [phone] slovak documented in this encounter Plan of Treatment Upcoming Encounters Date Type Department Care Team (Late st Contact Info) Description 08/19/2024 1:00 PM EDT Office Visit [facility] ADULT DENTAL [address] [place] [address] Kelly Guerra documented as of this encounter Visit Diagnoses Not on filedocumented in this encounter Additional Health Concerns Assessment Noted Time PHQ-9 Depression Total Score: 0 07/02/19 24 10:12 AM EST documented as of this encounter Care Teams Operations Research Analyst Relationship Specialty Start Date End Date Name, MD Jamie [address] [place] [address] PCP - General Family Medicine 10/29/15 Lia SOFIA 07/02/24 documented as of this encounter
--- OUTSIDE RECORDS SUMMARY | 2024-08-11 14:15 | XMS_ITS | Encounter Summary ---
Author Organization [employer] Address [address] [facility] [address]t [place] [address] Care Team Providers Care Line Assembler Aircraft Name Role Phone Name, Jamie DURHAM Primary Care Provider [phone] Reason for Visit * Reason Comments Med Refill Encounter Details Date Type Department Care Team ([facility] st Contact Info) Description 08/10/2023 Refill [facility] MEDICINE [address] [place], [place] [phone] Name, MD Jamie [address] [place] [address] Social History Tobacco Use Types Packs/Day Years [...] [facility] ADULT DENTAL [address] [place] [address] Kelly Guerra documented as of this encounter Visit Diagnoses Not on filedocumented in this encounter Additional Health Concerns Assessment Noted Time PHQ-9 Depression Total Score: 0 07/02/19 24 10:12 AM EST documented as of this encounter Care Teams Line Assembler Aircraft Relationship Specialty Start Date End Date Name, MD Jamie [address] [place] [address] PCP - General Family Medicine 10/29/15 Lia A 07/02/24 documented as of this encounter
--- OUTSIDE RECORDS SUMMARY | 2024-08-11 14:15 | XMS_ITS | Encounter Summary ---
Author Organization [employer] Address 75 [facility] 7t [place] [address] Care Team Providers Care Insurance Case Manager Name Role Phone Name, Jamie DURHAM Primary Care Provider [phone] Encounter Details Date Type Department Care Team (Late st Contact Info) Description 08/11/2024 Orders Only GENERIC EXTERNAL DATA DEPARTMENT Provider, Generic External Data Social History Tobacco Use Types Packs/Day Years [...] Description 08/19/2024 1:00 PM EDT Office Visit [facility] ADULT DENTAL [address] [place] [address] Kelly Guerra documented as of this encounter Procedures Procedure Name Priority Date/Time Associated Diagnosis Comments BASIC METABOLIC PANEL Routine 08/11/2024 11:43 AM EDT documented in this encounter Results * (ABNORMAL) Basic Metabolic Panel (08/11/2024 11:43 AM EDT) Sodium 136 135 - 145 mmol/L [facility] Potassium 4.6 3.3 - 5.1 mmol/L [facility] Chloride 98 96 - 108 mmol/L [facility] Carbon Dioxide 32(H) 22 - 29 mmol/L [facility] Anion Gap 11(L) 12 - 20 [facility] Urea Nitrogen (BUN) 22(H) 9 - 16 mg/dL [facility] Creatinine, Serum 0.72 0.5 - 1.4 mg/dL [facility] Estimated Glomerular Filt Rate >60 [facility] Comment:Chronic Kidney Disea se: Estimated GFR < 60 mL/min/[id number] Kidney Disease: Estimated GFR < 15 mL/min/1.73m2 Glucose 75 60 - 115 mg/dL [facility] Calcium 9.2 8.4 - 10.2 mg/dL [facility] 08/11/2024 11:4 3 AM EDT 08/11/2024 1:25 PM EDT us Generic External Data Provider LAB BLOOD ORDERAB LES Final Result [facility] [address] [place] [address] [phone] documented in this encounter Visit Diagnoses Not on filedocumented in this encounter Additional Health Concerns Assessment Noted Time PHQ-9 Depression Total Score: 0 07/09/19 25 1:47 PM EST documented as of this encounter Care Teams Insurance Case Manager Relationship Specialty Start Date End Date Name, MD Jamie [address] [place] [address] PCP - General Family Medicine 10/29/15 [facility] 07/02/[facility] documented as of this encounter
--- OUTSIDE RECORDS SUMMARY | 2024-08-11 14:15 | XMS_ITS | Encounter Summary ---
Author Organization [employer] Address [address] [facility] 7t [place] [address] Care Team Providers Care Lease Out Worker Name Role Phone Name, Jamie DURHAM Primary Care Provider [phone] Reason for Visit * Reason Comments Med Refill Encounter Details Date Type Department Care Team ([facility] st Contact Info) Description 06/08/2024 Refill [facility] MEDICINE [address] [place], [place] [phone] Name, MD Jamie [address] [place] [address] Social History Tobacco Use Types Packs/Day Years [...] Description 08/19/2024 1:00 PM EDT Office Visit [facility] ADULT DENTAL [address] [place] [address] Kelly Guerra documented as of this encounter Visit Diagnoses Not on filedocumented in this encounter Additional Health Concerns Assessment Noted Time PHQ-9 Depression Total Score: 0 07/02/19 24 10:12 AM EST documented as of this encounter Care Teams Lease Out Worker Relationship Specialty Start Date End Date Name, MD Jamie [address] [place] [address] PCP - General Family Medicine 10/29/15 Lia A 07/02/24 documented as of this encounter
== END 2024-08-11 11:41 | disposition home or self-care (01) ==
LOC: HO.HHCL 11:40
PROVIDERS: Physician Assistant Medical; Visit Provider Nurse Practitioner
DX: I50.9 Heart failure, unspecified (principal)
CPT/HCPCS: 36415; 80048

== ENCOUNTER 2024-08-12 09:07 | Outpatient (AMB) | payer OTHER, SELFPAY ==
--- OUTSIDE RECORDS SUMMARY | 2024-08-12 09:27 | XMS_ITS | Encounter Summary ---
Author Organization [employer] Address 75 [facility] 7t [place] [address] Care Team Providers Care Ornamental Iron Worker Apprentice Name Role Phone Name, Jamie DURHAM Primary Care Provider [phone] Encounter Details Date Type Department Care Team (Late st Contact Info) Description 06/14/2023 Abstract [facility] MEDICINE [address] [place], [place] [phone] Name, MD Jamie [address] [place] [address] Social History Tobacco Use Types Packs/Day Years [...] Description 08/19/2024 1:00 PM EDT Office Visit [facility] ADULT DENTAL [address] [place] [address] Kelly Guerra documented as of this encounter Visit Diagnoses Not on filedocumented in this encounter Care Teams Ornamental Iron Worker Apprentice Relationship Specialty Start Date End Date Name, MD Jamie [address] [place] [address] PCP - General Family Medicine 10/29/15 [facility] 07/02/24 documented as of this encounter
--- OUTSIDE RECORDS SUMMARY | 2024-08-12 09:27 | XMS_ITS | Encounter Summary ---
Author Organization [employer] Address [address] [facility] 7t [place] [address] Care Team Providers Care Product Control And Logistics Analyst Name Role Phone Name, Jamie DURHAM Primary Care Provider [phone] Reason for Visit * Reason Comments Med Refill Encounter Details Date Type Department Care Team ([facility] st Contact Info) Description 10/12/[address] [facility] MEDICINE [address] [place], [place] [address] Name, MD Jamie [address] [place] [address] Social History Tobacco Use Types Packs/Day Years [...] 1:00 PM EDT Office Visit [facility] ADULT DENTAL [address] [place] [address] Kelly Guerra documented as of this encounter Visit Diagnoses Not on filedocumented in this encounter Additional Health Concerns Assessment Noted Time PHQ-9 Depression Total Score: 0 07/02/19 24 10:12 AM EST documented as of this encounter Care Teams Product Control And Logistics Analyst Relationship Specialty Start Date End Date Name, MD Jamie [address] [place] [address] PCP - General Family Medicine 10/29/15 Lia A 07/02/24 documented as of this encounter
--- OUTSIDE RECORDS SUMMARY | 2024-08-12 09:27 | XMS_ITS | Encounter Summary ---
Author Organization [employer] Address 75 [facility] 7t [place] [address] Care Team Providers Care Web Applications Administrator Name Role Phone Name, Jamie DURHAM Primary Care Provider [phone] Reason for Visit * Reason Onset Date Comments Hospital Follow-up 07/04/2024 Encounter Details Date Type Department Care Team ([facility] st Contact Info) Description 07/04/2024 Telephone [facility] MEDICINE [address] [place], [place] [phone] Name, MD Jamie [address] [place] [address] Hospital Follow-up Social History Tobacco Use Types [...] from pt requesting a HDF appt. Hospital: [facility] Date of admission: 06/28 Discharge date: 06/30 Diagnosed: pneumonia, flu *Send message to [place] Clinical Care Coordinators [phone] japanese documented in this encounter Plan of Treatment Upcoming Encounters Date Type Department Care Team (Late st Contact Info) Description 08/19/2024 1:00 PM EDT Office Visit [facility] ADULT DENTAL [address] [place] [address] Kelly Guerra documented as of this encounter Visit Diagnoses Not on filedocumented in this encounter Additional Health Concerns Assessment Noted Time PHQ-9 Depression Total Score: 0 07/02/19 24 10:12 AM EST documented as of this encounter Care Teams Web Applications Administrator Relationship Specialty Start Date End Date Name, MD Jamie [address] [place] [address] PCP - General Family Medicine 10/29/15 Lia SOFIA 07/02/24 documented as of this encounter
--- OUTSIDE RECORDS SUMMARY | 2024-08-12 09:28 | XMS_ITS | Clinical Summary ---
Author Organization [employer] Address [address] [place] [address] 7t [place] [address] Care Team Providers Care Aquatic Habitat Biologist Name Role Phone Name, Jamie DURHAM Primary Care Provider [phone] Allergies Active Allergy Reactions Criticality Noted Date [...] Blood work normal including screening for subclinical Dixie and 24 urine metanephrines. His MRI was [...] stone 10/09/2017 Overview (09/15/2023): He follows with [facility] Urology Has renal stones BPH [...] 09/15/2023 Overview (03/13/2023): One episode uncomplicated at [facility] 09/2016 Normal colonoscopy the same year Repeat colonoscopy recommended in 10 years Cervical radiculitis 03/18/2012 024 Neck pain 03/18/2012 03/13/2023 Low back pain 09/24/2009 07/02/2023 Groin pain 09/24/2009 03/13/2023 Neuropathic pain syndrome (non-herpetic) 09/24/2009 03/13/2023 Encounters Date Type Department Care Team Description 08/11/2024 11:15 AM EDT Office Visit [facility] [address] [place] [phone] Jamie Garcia MD Essential hypertension (Primary Dx); Chronic diastolic congestive heart failure (CMS/HCC); Benign prostatic hyperplasia (BPH) with straining on urination 08/11/2024 Orders Only GENERIC EXTERNAL DATA DEPARTMENT Provider, Generic External Data 08/11/2024 Travel 07/08/2024 2:00 PM EST Office Visit [address] [address] Macy Amador NP Constipation, unspecified constipation type (Primary Dx); [facility] current use of diuretic; Hospital discharge follow-up 07/08/2024 Travel 07/06/[address] [address] Librado Cerna MA chartprep 07/05/2024 Orders Only [facility] [address] [place] [phone] Jamie Garcia MD 07/04/[address] [address] Jamie Garcia MD Verbal Order 07/04/2024 Patient Outreach [facility] [address] [place] [address] Name, MD Jamie Transition Of Care (Tcm) (HDF scheduled) 07/04/2024 Telephone [facility] [address] [place] [address] Jamie Garcia MD Hospital Follow-up 06/27/2024 Orders Only [facility] External Provider, [facility] 06/08/2024 Refill [facility] [address] [place] [address] NameJamie MD from Last 3 Months Immunizations [...] Description 08/19/2024 1:00 PM EDT Office Visit [facility] [address] [place] [address] Kelly Guerra Health Maintenance Due Date Last Done Comments CT Colonography 1950 Dental X-Ray: Full Mouth 1950 FIT DNA/Cologuard 1950 FIT 1950 FOBT 1950 Sigmoidoscopy 1950 Hepatitis C Screening 1968 Zoster Vaccines (1 of 2) 2000 RSV Patients and Patients Aged 60 years or older (1 - Risk 60-74 years 1-dose series) 2010 Dental Prophylaxis 06/09/2019 12/06/2018, 0 11/02/2017, 05/01/2017, Additional history exists Dental Oral Exam 08/31/2019 02/28/2019, , 11/02/2017, Additional history exists Dental X-Ray: Bitewings 04/22/2020 04/21/20 19, 08/24/2018, 10/29/2016, Additional history exists COVID-19 Vaccine ( season) 2024 06/14/2021, 05/24/2021 Influenza Vaccine (#1) 2024 02/17/2018 Alcohol/Substance Use Screening 07/08/2025 07/08/2024 Depression Screening 07/08/2025 07/08/2024, 07/09/19 SDOH Screening 07/08/2025 07/08/2024 Tobacco Screening 08/11/2025 08/11/2024 DTaP/Tdap/Td Vaccines (2 - Td or Tdap) 02/04/2026 02/05/2016 Colonoscopy 11/17/2026 11/17/2016, [...] Routine 04/11/2022 9:26 AM EST Essential hypertension BITEWING - SINGLE RADIOGRAPHIC IMAGE Routine 04/21/2019 12:00 AM EST PERIODIC ORAL EVALUATION - ESTABLISHED PATIENT Routine 02/28/2019 12:00 AM EDT PROPHYLAXIS - ADULT Routine 12/06/2018 1 2:00 AM EDT HM COLONOSCOPY Routine 11/17/2016 12:06 PM EDT from Last 3 Months or Most Recently Relevant to Health Maintenance Results * (ABNORMAL) Basic Metabolic Panel (08/11/2024 11:43 AM EDT) Only the most recent of3 resultswithin the time period is included. Sodium 136 135 - 145 mmol/L [facility] Potassium 4.6 3.3 - 5.1 mmol/L [facility] Chloride 98 96 - 108 mmol/L [facility] Carbon Dioxide 32(H) 22 - 29 mmol/L [facility] Anion Gap 11(L) 12 - 20 [facility] Urea Nitrogen (BUN) 22(H) 9 - 16 mg/dL [facility] Creatinine, Serum 0.72 0.5 - 1.4 mg/dL [facility] Estimated Glomerular Filt Rate >60 [facility] Comment:Chronic Kidney Disea se: Estimated GFR < 60 mL/min/1.52i0Tzfnqe Kidney Disease: Estimated GFR < 15 mL/min/1.73m2 Glucose 75 60 - 115 mg/dL [facility] Calcium 9.2 8.4 - 10.2 mg/dL [facility] 08/11/2024 11:4 3 AM EDT 08/11/2024 1:25 PM EDT us Generic External Data Provider LAB BLOOD ORDERAB LES Final Result [facility] [address] [place] [phone] * XR Chest 1 View (06/29/2024 7:55 AM EST) Anatomical Region Laterality Modality Chest Radiographic Iliana ging 06/29/2024 7:55 AM EST Narrative 06/29/2024 8:40 AM EST ? [facility] ?[address] ?[place] [address] ?XRay Report ? Signed ? Patient: Christopher,Ifeanyi A ?MR#: [id number] ?? [id number] ? : 1950 ?Acct:[id number] ? Age/Sex: 73 / M ?ADM Date: 06/27/24 ? Loc: HO.IMC ?473-1 ? Attending Dr: María Phan FIBERGLASS TECHNICIAN ? Ordering Physician: María Phan NP ?? Date of Service: 06/29/24 ?? Procedure(s): XR chest 1V ?? Accession Number(s): [id number] ? cc: Jamie Garcia MD; María Phan NP ? EXAMINATION: ?? XR [...] DD/ 0755 ? TD/TT: 06/29/24 0813 ? Ceramics Teacher: ? Procedure Note Chino Zayas - 06/29/[address] [address] XRay Report Signed Patient: Ifeanyi White AMR#: [id number] : 1Acct:[id number] Age/Sex: 73 / MADM Date: 06/27/24 Loc: .[facility] 473-[address]: María Phan FIBERGLASS TECHNICIAN Ordering Physician: María Phan NP Date of Service: 06/29/24 Procedure(s): XR chest 1V Accession Number(s): [id number] cc: Jamie Garcia MD; María Phan NP [...] 06/29/24 0837 DD/ 0755 TD/TT: 06/29/24 0813 Ceramics Teacher: [facility] External Provider IMG XR PROCEDURES Final Result * CTA Chest PE Protocal (06/27/2024 1:24 PM EST) Anatomical Region Laterality Modality Body, Chest Computed Tomogra phy 06/27/2024 1:24 PM EST Narrative 06/27/2024 2:06 PM EST ? [facility] ?[address] ?[place] [address] ? CT Scan Report ? Signed ? Patient: Enrique Whiteardo Gustavo ?MR#: [id number] ?? [id number] ? : 1950 ?Acct:[id number] ? Age/Sex: 73 / M ?ADM Date: 06/27/24 ? Loc: HO.ED ? Attending Dr: ? Ordering Physician: Ailin Gonzales ?? Date of Service: 06/27/24 ?? Procedure(s): CT angio chest PE protocol ?? Accession Number(s): [id number] ? cc: Ailin Gonzales; Name,Jamie DURHAM ? Report Number: ?? [id number]: Total DLP = ??209.00 mGy-cm ?? EXAMINATION: [...] 1403 ? DD/ 1324 ? TD/TT: 06/27/24 4625 ? Ceramics Teacher: ? Procedure Note Marquez, Image - 06/27/[address] [address] [address] Scan Report Signed Patient: Ifeanyi White AMR#: [id number] : 1Acct:[id number] Age/Sex: 73 / MADM Date: 06/27/24 Loc: HO.ED Attending Dr: Ordering Physician: Ailin Gonzales Date of Service: 06/27/24 Procedure(s): CT angio chest PE protocol Accession Number(s): [id number] cc: Ailin Gonzales; Name,Jamie DURHAM Report Number: [id number]: Total DLP = 209.00 mGy-cm EXAMINATION: CT [...] Fabian Chambers MD 06/27/2024 02:03 PM EST RP Dictated By: Fabian Sage MD Signed By: <Electronically signed by Fabian Elizabeth MDin OV> 06/27/24 1403 DD/ 1324 TD/TT: 06/27/24 1355 Ceramics Teacher: us [facility] External Provider IMG CT PROCEDURES Final Result * (ABNORMAL) VENOUS BLOOD GAS (06/27/2024 11:58 AM EST) VBG pH 7.43 7.32 - 7.43 [facility] Comment:METER #: [id number] additional_comment: CbAbliai VBG PCO2 47 mmHg [facility] Comment:METER #: [id number] additional_comment: CbAbliai VBG PO2 54 mmHg [facility] Comment:METER #: [id number] additional_comment: CbAbliai VBG Base Excess 6.3 mmol/L [facility] Comment:METER #: [id number] additional_comment: CbAbliai VBG HCO3 31(H) 22 - 26 mmol/L [facility] Comment:METER #: [id number] additional_comment: CbAbliai O2 Sat, [place]avan 87.0 % [facility] Comment:METER #: [id number] additional_comment: CbAbliai 06/27/2024 11:5 8 AM EST 06/27/2024 12:15 PM EST us Generic External Data Provider LAB BLOOD ORDERAB LES Final Result [facility] [address] [place] [phone] * Prothrombin Time-INR (06/27/2024 11:37 AM EST) Prothrombin Time 11.8 10.9 - 12.4 SEC [facility] INTERNATIONAL NORM RATIO 1.0 0.9 - 1.1 [facility] Comment:INTERNATIONAL NORMAL IZED RATIO (INR) [...] ORDERAB LES Final Result Performing Organization Address [facility]/ZIP Co de Phone Number [facility] [address] [place] [phone] * Hold Green Gel (06/27/2024 11:36 AM EST) Only the most recent of2 resultswithin the time period is included. Hold Green Gel See Note [facility] Comment:Specimen held untest ed for 24 hours; Call to requestChemistry testing. 06/27/2024 11:3 6 AM EST 06/27/2024 12:01 PM EST us Generic External Data Provider HISTORICAL/NON OR DERABLE LABS Final Result Performing Organization Address [facility] Co de Phone Number [facility] [address] [place] [phone] * Hold Lavender - Possible Hematology (06/27/2024 11:36 AM EST) Only the most recent of2 resultswithin the time period is included. Hold Lavender - Possible Hematololgy SEE NOTE [facility] Comment:Specimen will be hel d untested for 8 hours. Call Hematologyif testing is desired. 06/27/2024 11:3 6 AM EST 06/27/2024 12:01 PM EST Generic External Data Provider HISTORICAL/NON OR DERABLE LABS Final Result Performing Organization Address [facility]/ZIP Co de Phone Number [facility] [address] [place] [phone] * Lactic Acid (06/27/2024 11:36 AM EST) Pathologist [facility] Lactic Acid 1.0 0.5 - 2.0 mmol/L [facility] 06/27/2024 11:3 6 AM EST 06/27/2024 11:45 AM EST Generic External Data Provider LAB BLOOD ORDERAB LES Final Result Performing Organization Address [facility] Number [facility] [address] [place] [phone] * High Sensitivity Troponin I (06/27/2024 10:42 AM EST) [facility] TROPONIN I HIGH SENSITIVITY 21.0 <3.5 - 35.0 ng/L [facility] Comment:The [place] high sens itivity Troponin-I results should beused in conjunction with other diagnostic information suchas ECG, clinical observations and information, and patientsymptoms to aid in the diagnosis of HI. 06/27/2024 10:4 2 AM EST 06/27/2024 10:45 AM EST Generic External Data Provider LAB BLOOD ORDERAB LES Final Result Performing Organization Address [facility] Co de Phone Number [facility] [address] [place] [phone] * (ABNORMAL) SARS-CoV-2 RNA, Influenza A/B, and RSV RNA, Ql NAAT (06/27/2024 10:42 AM EST) [facility] Influenza A PCR POSITIVE(A) Negative [facility] Influenza B PCR NEGATIVE Negative [facility] Resp Syncy Virus RNA Qual PCR NEGATIVE Negative [facility] SARS COV2 PCR NEGATIVE Negative [facility] Comment:All test results mus [...] use by authorized laboratories.Testing performed on the [employer] GeneXpert utilizingreal-time RT-PCR.All SARS CoV2 and positive influenza A/B results arereported to [facility]. 06/27/2024 10:4 2 AM EST 06/27/2024 10:45 AM EST us Generic External Data Provider LAB MICROBIOLOGY - GENERAL ORDERABLES Final Result [facility] [address] [place] [phone] * (ABNORMAL) CBC auto differential (06/27/2024 10:42 AM EST) White Blood Count 3.2(L) 4.8 - 10.8 X10*3/uL [facility] Red Blood Count 4.31(L) 4.60 - 5.80 X10*6/uL [facility] Hemoglobin 13.7(L) 14.0 - 18.0 g/dl [facility] Hematocrit 42.1 42.0 - 52.0 % [facility] Mean Corpuscular Volume 97.7 80.0 - 98.0 fL [facility] Mean Corpuscular Hemoglobin 31.8 27.0 - 33.0 pg [facility] Mean Corpuscular HGB Conc 32.5 31.0 - 36.0 g/dl [facility] Red Cell Distribution Width 12.6 11.0 - 16.0 % [facility] Platelet Count 102(L) 160 - 400 X10*3/uL [facility] Comment:Test was verified by repeat analysis. Mean Platelet Volume 9.9 9.4 - 12.4 fL [facility] Neutrophils Percent Auto 65.1 45 - 73 % [facility] Imm Gran Pct Auto 0.6(H) 0.0 - 0.4 % [facility] Lymphocytes Percent Auto 23.5 20 - 40 % [facility] Monocytes Percent Auto 10.5 2 - 11 % [facility] Eosinophils Percent Auto 0.0 0 - 4 % [facility] Basophils Percent Auto 0.3 0 - 2 % [facility] NRBC Pct Auto 0.0 0.0 - 0.2 /100WBC [facility] Neutrophils Absolute Auto 2.1 2.0 - 8.3 x10*3/uL [facility] Imm Gran Abs Auto 0.02 0.00 - 0.03 X10*3/uL [facility] Lymphocytes Absolute Auto 0.8(L) 1.2 - 4.9 X10*3/uL [facility] Monocytes Absolute Auto 0.3 0.1 - 1.2 X10*3/uL [facility] Eosinophils Absolute Auto 0.0 0.0 - 0.4 X10*3/uL [facility] Basophils Absolute Auto 0.0 0.0 - 0.2 X10*3/uL [facility] NRBC Abs Auto 0.000 0.0 - 0.012 X10*3/uL [facility] 06/27/2024 10:4 2 AM EST 06/27/2024 10:45 AM EST us Generic External Data Provider LAB BLOOD ORDERAB LES Final Result [facility] [address] [place] [phone] * B Type Natriuretic Peptide (BNP) (06/27/2024 10:42 AM EST) B Type Natriuretic Peptide 41 <100 pg/mL [facility] Comment:For those patients w ho are being treated with Natrecor(nesiritide, recombinant BNP), BNP testing should beperformed at least two hours post treatment in order toensure that only endogenous levels of BNP are detected. 06/27/2024 10:4 2 AM EST 06/27/2024 10:45 AM EST Generic External Data Provider LAB BLOOD ORDERAB LES Final Result Performing Organization Address [facility] de Phone Number [facility] [address] [place] [phone] * Hepatic Function Panel (06/27/2024 10:42 AM EST) Bilirubin, Total 0.2 0.0 - 1.0 mg/dL [facility] Bilirubin, Direct <0.2 0.0 - 0.5 mg/dL [facility] Aspartate Amino Transferase 28 5 - 37 U/L [facility] Alanine Aminotransferase 10 0 - 40 U/L [facility] Total Protein 6.6 6.5 - 8.0 g/dL [facility] Albumin Level 3.6 3.5 - 5.0 g/dL [facility] Alkaline Phosphatase 84 39 - 117 U/L [facility] 06/27/2024 10:4 2 AM EST 06/27/2024 10:45 AM EST Generic External Data Provider LAB BLOOD ORDERAB LES Final Result Performing Organization Address [facility] de Phone Number [facility] [address] [place] [phone] * XR Chest 2 Views (06/27/2024 9:55 AM EST) Anatomical Region Laterality Modality Chest Radiographic Iliana ging 06/27/2024 9:55 AM EST Narrative 06/27/2024 11:05 AM EST ? [facility] ?[address] ?[place] [address] ?XRay Report ? Signed ? Patient: Christopher,Ifeanyi A ?MR#: [id number] ?? [id number] ? : 1950 ?Acct:[id number] ? Age/Sex: 73 / M ?ADM Date: 06/27/24 ? Loc: HO.ED ? Attending Dr: ? Ordering Physician: Angy Abbott DO ?? Date of Service: 06/27/24 ?? Procedure(s): XR chest 2V ?? Accession Number(s): [id number] ? cc: Angy Abbott DO; Name,Jamie DURHAM [...] MD in OV> ?06/27/24 1102 ? DD/ ? TD/TT: 06/27/24 1059 ? Ceramics Teacher: ? Procedure Note Chino Zayas - 06/27/[address] [address] XRay Report Signed Patient: Ifeanyi White AMR#: [id number] : 1Acct:[id number] Age/Sex: 73 / MADM Date: 06/27/24 Loc: HO.ED Attending Dr: Ordering Physician: Angy Abbott DO Date of Service: 06/27/24 Procedure(s): XR chest 2V Accession Number(s): [id number] cc: Angy Abbott DO; NameJamie MD EXAMINATION: XR CHEST 2 VIEWS HISTORY: cough [...] 06/27/24 1102 DD/ 0955 TD/TT: 06/27/24 1059 Ceramics Teacher: [facility] External Provider IMG XR PROCEDURES Final Result * Lipid Panel, Standard (04/11/2022 9:26 AM EST) Cholesterol, Total 149 <200 mg/dL [facility] HDL Cholesterol 86 > OR = 40 mg/dL [facility] Triglycerides 54 <150 mg/dL [facility] LDL Cholesterol 50 mg/dL (calc) [facility] Comment: Reference range: <100 Desirable range <100 mg/dL for primary prevention; ?? <70 mg/dL for patients with CHD or diabetic patients with > or = 2 CHD risk factors. LDL-C is now calculated using the Fredy-Ann Marie calculation, which is a validated novel method providing better accuracy than the Friedewald equation in the estimation of LDL-C. Fredy SS et al. JEAN. 2013;310(19): 3089-0198 (http://education.Attensa/faq/TOF810) Chol/HDLC Ratio 1.7 <5.0 (calc) [facility] Non-HDL Cholesterol 63 <130 mg/dL (calc) [facility] Comment: For patients with diabetes plus 1 major ASCVD risk factor, treating to a non-HDL-C goal of <100 mg/dL (LDL-C of <70 mg/dL) is considered a therapeutic option. Blood Venous blood specimen / Unknown 04/11/2022 9:26 AM EST 04/11/2022 9:26 AM EST Narrative [facility] - 04/11/2022 9:46 PM EST FASTING:YES FASTING: YES Jamie Name LAB BLOOD ORDERABLES Final Resul t [facility] [address], [place] [address] [facility] [address], [place] [address] * Hm Colonoscopy (11/17/2016 12:06 PM EDT) Colonoscopy Normal Normal Narrative Asa Zhaoba - 11/17/2016 12:06 PM EDT Recommended 10 years follow up Historical Provider HEALTH MAINTENANCE Final Result from Last 3 Months or Most Recently Relevant to Health Maintenance Insurance [facility] - [facility] OPTIONS (HMO D-SNP) DENTAL [facility] Care Teams Aquatic Habitat Biologist Relationship Specialty Start Date End Date Name, MD Jamie [address] [place] [phone] PCP - General Family Medicine 10/29/15 [facility] 07/02/24
--- OUTSIDE RECORDS SUMMARY | 2024-08-12 09:28 | XMS_ITS | Encounter Summary ---
Author Organization [employer] Address [address] [facility] 7t [place] [address] Care Team Providers Care Semiconductor Wafers Etch Operator Name Role Phone Name, Jamie DURHAM Primary Care Provider [phone] Reason for Visit * Reason Comments Med Refill Encounter Details Date Type Department Care Team ([facility] st Contact Info) Description 06/08/2024 Refill [facility] [address] [place], [place] [phone] Name, MD Jamie [address] [place] [address] Social History Tobacco Use Types Packs/Day Years [...] 08/19/2024 1:00 PM EDT Office Visit [facility] [address] [place] [address] Kelly Guerra documented as of this encounter Visit Diagnoses Not on filedocumented in this encounter Additional Health Concerns Assessment Noted Time PHQ-9 Depression Total Score: 0 07/02/19 24 10:12 AM EST documented as of this encounter Care Teams Semiconductor Wafers Etch Operator Relationship Specialty Start Date End Date Name, MD Jamie [address] [place] [address] PCP - General Family Medicine 10/29/15 [facility] 07/02/24 documented as of this encounter
--- OUTSIDE RECORDS SUMMARY | 2024-08-12 09:28 | XMS_ITS | Encounter Summary ---
Author Organization [employer] Address [address] [facility] 7t [place] [address] Care Team Providers Care Operating Manager Name Role Phone Name, Jamie DURHAM Primary Care Provider [phone] Encounter Details Date Type Department Care Team [...] [facility] [address] [place] [address] Kelly Guerra documented as of this encounter Procedures Procedure Name Priority Date/Time Associated Diagnosis Comments BASIC METABOLIC PANEL Routine 08/11/2024 11:43 AM EDT documented in this encounter Results * (ABNORMAL) Basic Metabolic Panel (08/11/2024 11:43 AM EDT) Sodium 136 135 - 145 mmol/L [facility] Potassium 4.6 3.3 - 5.1 mmol/L [facility] Chloride 98 96 - 108 mmol/L [facility] Carbon Dioxide 32(H) 22 - 29 mmol/L [facility] Anion Gap 11(L) 12 - 20 [facility] Urea Nitrogen (BUN) 22(H) 9 - 16 mg/dL [facility] Creatinine, Serum 0.72 0.5 - 1.4 mg/dL [facility] Estimated Glomerular Filt Rate >60 [facility] Comment:Chronic Kidney Disea se: Estimated GFR < 60 mL/min/1.99s8Lwzkuv Kidney Disease: Estimated GFR < 15 mL/min/1.73m2 Glucose 75 60 - 115 mg/dL [facility] Calcium 9.2 8.4 - 10.2 mg/dL [facility] 08/11/2024 11:4 3 AM EDT 08/11/2024 1:25 PM EDT us Generic External Data Provider LAB BLOOD ORDERAB LES Final Result [facility] [address] [place] [phone] documented in this encounter Visit Diagnoses Not on filedocumented in this encounter Additional Health Concerns Assessment Noted Time PHQ-9 Depression Total Score: 0 07/09/19 25 1:47 PM EST documented as of this encounter Care Teams Operating Manager Relationship Specialty Start Date End Date Name, MD Jamie [address] [place] [address] PCP - General Family Medicine [facility] documented as of this encounter
--- OUTSIDE RECORDS SUMMARY | 2024-08-12 09:28 | XMS_ITS | Encounter Summary ---
Author Organization [employer] [facility] Address [address] [place] [address] 7[address] [place] [address] Care Team Providers Care Bit Sander Name Role Phone Name, Jamie DURHAM Primary Care Provider [phone] Encounter Details Date Type Department Care Team (Late st Contact Info) Description 10/03/2022 Abstract [facility] [address] [place], [place] [phone] Name, MD Jamie [address] [place] [address] Social History Tobacco Use Types Packs/Day Years [...] Description 08/19/2024 1:00 PM EDT Office Visit [facility] [address] [place] [address] Kelly Guerra documented as of this encounter [...] on filedocumented in this encounter Care Teams Bit Sander Relationship Specialty Start Date End Date Name, MD Jamie [address] [place] [address] PCP - General Family Medicine 10/29/15 [facility] 07/02/24 documented as of this encounter
--- OUTSIDE RECORDS SUMMARY | 2024-08-12 09:28 | XMS_ITS | Encounter Summary ---
Author Organization [employer] Address [address] [facility] 7t [place] [address] Care Team Providers Care Coil Binder Name Role Phone Name, Jamie DURHAM Primary Care Provider [phone] Encounter Details Date Type Department Care Team [...] Description 08/19/2024 1:00 PM EDT Office Visit [facility] ADULT DENTAL [address] [place] [address] Kelly Guerra documented as of this encounter Visit Diagnoses Not on filedocumented in this encounter Additional Health Concerns Assessment Noted Time PHQ-9 Depression Total Score: 0 07/09/19 25 1:47 PM EST documented as of this encounter Care Teams Coil Binder Relationship Specialty Start Date End Date Name, MD Jamie [address] [place] [address] PCP - General Family Medicine 10/29/15 [place] A 07/02/24 documented as of this encounter
--- OUTSIDE RECORDS SUMMARY | 2024-08-12 09:28 | XMS_ITS | Encounter Summary ---
Author Organization [employer] [facility] Address [address] [place] [address] 7t [place] [address] Care Team Providers Care Stage Director Name Role Phone Name, Jamie DURHAM Primary Care Provider [phone] Encounter Details Date Type Department Care Team (Latest Contact Info) Description 08/24/2018 Abstract [facility] CONVERSIONS Dental, Provider, DDS Social History [...] Description 08/19/2024 1:00 PM EDT Office Visit [facility] ADULT DENTAL [address] [place] [address] Kelly Guerra documented as of this encounter Visit Diagnoses Not on filedocumented in this encounter Care Teams Stage Director Relationship Specialty Start Date End Date Name, MD Jamie [address] [place] [address] PCP - General Family Medicine 10/29/15 [facility] 07/02/24 documented as of this encounter
--- OUTSIDE RECORDS SUMMARY | 2024-08-12 09:28 | XMS_ITS | Encounter Summary ---
Author Organization [employer] Address [address] [facility] 7t [place] [address] Care Team Providers Care Manager Nuclear Name Role Phone Name, Jamie DURHAM Primary Care Provider [phone] Encounter Details Date Type Department Care Team ([facility] st Contact Info) Description 08/26/2023 Telephone [facility] MEDICINE [address] [place], [place] [phone] Name, MD Jamie [address] [place] [address] Social History Tobacco Use Types Packs/Day Years [...] 1:00 PM EDT Office Visit [facility] ADULT DENTAL [address] [place] [address] Kelly Guerra documented as of this encounter Visit Diagnoses Not on filedocumented in this encounter Additional Health Concerns Assessment Noted Time PHQ-9 Depression Total Score: 0 07/02/19 24 10:12 AM EST documented as of this encounter Care Teams Manager Nuclear Relationship Specialty Start Date End Date Name, MD Jamie [address] [place] [address] PCP - General Family Medicine 10/29/15 Lia SOFIA 07/02/24 documented as of this encounter
--- OUTSIDE RECORDS SUMMARY | 2024-08-12 09:28 | XMS_ITS | Encounter Summary ---
Author Organization [employer] Address [address] [facility] 7t [place] [address] Care Team Providers Care Masonry Supervisor Name Role Phone Name, Jamie DURHMA Primary Care Provider [phone] Reason for Visit * Reason Comments Med Refill Encounter Details Date Type Department Care Team ([facility] st Contact Info) Description 08/10/2023 Refill [facility] MEDICINE [address] [place], [place] [phone] Name, MD Jamie [address] [place] [address] Social History Tobacco Use Types Packs/Day Years [...] [facility] ADULT DENTAL [address] [place] [address] Kelly Guerra documented as of this encounter Visit Diagnoses Not on filedocumented in this encounter Additional Health Concerns Assessment Noted Time PHQ-9 Depression Total Score: 0 07/02/19 24 10:12 AM EST documented as of this encounter Care Teams Masonry Supervisor Relationship Specialty Start Date End Date Name, MD Jamie [address] [place] [address] PCP - General Family Medicine 10/29/15 [place] A 07/02/24 documented as of this encounter
--- OUTSIDE RECORDS SUMMARY | 2024-08-12 09:28 | XMS_ITS | Encounter Summary ---
Author Organization [employer] Address [address] [facility] 7t [place] [address] Care Team Providers Care Heating And Ventilating Drafter Name Role Phone Name, Jamie DURHAM Primary Care Provider [phone] Reason for Visit * Reason Comments Hypertension Encounter Details Date Type Department Care Team ([facility] st Contact Info) Description 08/11/2024 11:15 AM EDT Office Visit [facility] MEDICINE [address] [place], [place] [phone] Name, MD Jamie [address] [place] [address] Essential hypertension (Primary Dx); Chronic diastolic congestive [...] I saw him he was admitted to [facility] with hypoxia secondary to influenza and exacerbation [...] 1:00 PM EDT Office Visit [facility] ADULT DENTAL [address] [place], [place] [phone] Kelly Guerra documented as of this encounter Visit Diagnoses Diagnosis Essential hypertension- Primary Unspecified essential hypertension Chronic diastolic congestive heart failure (CMS/HCC) Benign prostatic hyperplasia (BPH) with straining on urination documented in this encounter Additional Health Concerns Assessment Noted Time PHQ-9 Depression Total Score: 0 07/09/19 1:47 PM EST documented as of this encounter Care Teams Heating And Ventilating Drafter Relationship Specialty Start Date End Date Name, MD Jamie [address] [place] [address] PCP - General Family Medicine 10/29/15 Lia SOFIA 07/02/24 documented as of this encounter
--- NOTE | 2024-08-12 09:49 | A.OFFVIS_ITS ---
Intake Visit Reasons: 4m followup/finasteride/elevated PSA Intake Note: Patient is present for a 4 month follow up/Elevated PSA Urology Medication:SOLIFENACIN,TAMSULOSIN Antibiotic Allergy:NONE Blood Thinner:NONE PVR:65ml Optometrist Required: No Allergies No Known Allergies Allergy (Verified 08/12/24 09:52) HPI Comments Details: 08/12/24--Ifeanyi is here for follow-up. He was seen last on 03/17/2024 he is on VESIcare and Vistaril for urinary symptoms of urgency frequency. He has been on tamsulosin b.i.d. for BPH symptoms. Bilateral hydrocele left greater than right is not symptomatic. Total PSA is 9 I have discussed PSA is a blood test, prostate specific antigen and is an enzyme secreted by the prostate gland. Elevated PSA may be due to multiple conditions including prostate inflammatory condition, enlarged prostate or prostate cancer.Transrectal Ultrasound guided biopsy of the prostate. Discussed risks to include but not limited to pain, blood in stool, urine and semen, septicemia, need to repeat biopsy. Today's urine is nitrite positive I will treat with Cipro 500 mg twice a day for 7 days. We will get repeat urine culture prior to prostate biopsy 03/21/24-- 6 month FU--Ifeanyi is a 73 y/o here for follow-up. He was seen last on 07/16/2023 he was started on VESIcare and for urinary symptoms of urgency frequency. He has been on tamsulosin b.i.d. for BPH symptoms. Bilateral hydrocele left greater than right is not symptomatic. no recent PSA since 201809/17/2023--Ifeanyi is here for follow-up. He was seen last on 07/16/2023 he was started on VESIcare and Vistaril for urinary symptoms of urgency frequency. He has been on tamsulosin b.i.d. for BPH symptoms. Bilateral hydrocele left greater than right is not symptomatic. He was evaluated for microscopic hematuria CT urogram was within normal limits urine cytology sent May 2022 had atypical cells. The patient states his PCP discontinued the Vistaril as he is on gabapentin and combination of these meds have a high trans of drowsiness. Bladder scan PVR is 46 mL. He is tolerating VESIcare 5 mg and will continue tamsulosin. Repeat urine cytology. 07/16/23--Ifeanyi is a Nepali-speaking male who who presents for office cystoscopy, he was last seen on 06/03/2023 with complaints of right inguinal pain. On examination he has bilateral hydrocele left greater than right. He was referred to General surgery due to right inguinal pain for further evaluation. He denies scrotal pain. He complains of urgency and frequency with nocturia 5-6 times. He was noted on evaluation to have an microscopic hematuria He previously had an MRI noting a hyperdense renal cyst, he was sent for CT urogram. Urine cytology sent on 06/03/2023 came back atypical cells[address] CT urogram no suspicious kidney lesions noted. Office cystoscopy findings--minimal petechiae changes noted, moderate trabeculations. No suspicious bladder lesions. [facility] Medical History Hydrocele, bilateral Renal mass of unknown nature Pectus carinatum BPH (benign prostatic hyperplasia) Urinary retention Surgical History Hx of cystoscopy History of surgery on lower extremity H/O inguinal hernia repair Social History Household Members: Spouse Housing: Apartment Do you presently have visiting nurse or other home services: No Alcohol intake: never Comment: reinforced on bed alarm Patient Tobacco Use Status: Never used Tobacco e-Cigarette/Vaping Use: Never Used Advance Directives Date on File: 07/08/23 service: No Results AMB Urinalysis, Automated UA Leukoctes 125 Saturnino/uL Last Edit by Anne Rivera on 08/12/24 14:19 UA Nitrite Positive Last Edit by Anne Rivera on 08/12/24 14:19 UA Urobilinogen 0.2 mg/dL Last Edit by Anne Rivera on 08/12/24 14:19 UA Protein 15 mg/dL Last Edit by Anne Rivera on 08/12/24 14:19 UA pH 6.0 Last Edit by Anne Rivera on 08/12/24 14:19 UA Blood 25 Jagdeep/uL Last Edit by Anne Rivera on 08/12/24 14:19 UA Specific [place] 1.015 Last Edit by Anne Rivera on 08/12/24 14:19 UA Ketone Negative Last Edit by Anne Rivera on 08/12/24 14:19 UA Bilirubin 0 mg/dL Last Edit by Anne Rivrea on 08/12/24 14:19 UA Glucose 0 mg/dL Last Edit by Anne Rivera on 08/12/24 14:19 Results Reviewed Results Reviewed: Collected: 06/03/23 [facility] Re[facility]: 06/05/23 Diagnosis Urine: Few atypical urothelial cells. COMMENT: Examination of a monolayer preparation slides shows occasional benign squamous cells, occasional benign urothelial cells, and few atypical urothelial cells with increased nuclear:cytoplasmic ratio and small nucleoli. There are scattered red blood cells and inflammatory cells also present. Date: 07/04/23 US SCROTUM CLINICAL INFORMATION: Testicular pain. COMPARISON: Scrotal ultrasound 04/06/2023. TECHNIQUE: A sonogram of the scrotum was performed assessing blue-scale appearance and color Doppler flow. Spectral Doppler analysis of the arterial and venous flow were performed in the testes bilaterally. FINDINGS: RIGHT: Right testicle measures 4.5 x 2.6 x 3.1 cm, volume 18.9 mL. No focal testicular parenchymal lesions are visualized. Spectral Doppler analysis of the arterial and venous flow is normal in the right testis. Right epididymis appears enlarged and hyperemic. Moderate size hydrocele. No varicocele. LEFT: Left testicle measures 4.1 x 2.2 x 2.8 cm, volume 12.8 mL. No focal testicular parenchymal lesions are visualized. A small appendix testis is noted measuring 0.4 cm. Spectral Doppler analysis of the arterial and venous flow is normal in the left testis. Very large hydrocele, increased compared to 04/06/2023. Left epididymis is not well seen. No varicocele. ADDITIONAL FINDINGS: Subcutaneous swelling/edema. IMPRESSION: 1. Very large left-sided hydrocele and moderate right hydrocele, increased compared to prior. 2. Increased size of the right epididymis with hyperemia, recommend clinical correlation for acute epididymitis. 3. Soft tissue swelling. Date of Service: 07/04/23 EXAMINATION: CT ABDOMEN AND PELVIS WITH CONTRAST CLINICAL INFORMATION: Worsening scrotal pain COMPARISON: Noncontrast CT abdomen/pelvis and scrotal ultrasound 07/04/2023 TECHNIQUE: Multiple axial images were obtained from the superior aspect of the liver through the pubic symphysis after the administration of 75 mL of intravenous Omnipaque 350. Images were evaluated on independent dedicated 3-D workstation and 3-D images were reconstructed with concurrent radiologist supervision and subsequently interpreted. Oral contrast was not administered. This CT examination was performed using dose optimization techniques as appropriate, variously including the following: *Automated exposure control *Adjustment of mA and/or kV according to patient size (this includes techniques or standardized protocols for targeted exams where dose is matched to indication/reason for exam; i.e. extremities or head) *Use of iterative reconstruction technique DLP: 298 mGy-cm FINDINGS: LUNG BASES: Small right pleural effusion. CARDIOMEDIASTINUM: Heart normal in size with moderate-sized pericardial effusion. No coronary artery calcification. LIVER: Homogeneous in attenuation. Normal in size. GALLBLADDER: Noninflamed. BILIARY SYSTEM: No intrahepatic or extrahepatic biliary dilation. PANCREAS: Homogeneous in attenuation. SPLEEN: Normal in size. GENITOURINARY: Bilateral kidneys demonstrate symmetric enhancement. No perinephric fluid collection. No renal calculi. No hydroureteronephrosis. ADRENAL GLANDS: Unremarkable. REPRODUCTIVE: Prostamegaly. GASTROINTESTINAL: The visualized alimentary tract is normal in course. No evidence of obstruction. APPENDIX: The appendix is not visualized; however, no pericecal inflammatory changes are seen in the right lower quadrant. PERITONEUM: Trace free fluid in the pelvis. No pneumoperitoneum. No organized fluid collection. VASCULATURE: The abdominal aorta is normal in course and caliber. LYMPH NODES: No pathologically enlarged abdominal or pelvic lymph nodes. SOFT TISSUES/MUSCULOSKELETAL: Dilated blood vessels seen in the right inguinal canal. Multilevel degenerative changes of the spine. No focal osseous lesions. IMPRESSION: No acute abdominal or pelvic pathology. Dilated blood vessel seen in the right inguinal canal. Refer to prior scrotal ultrasound on 07/04/2023. Assessment & Plan Assessment & Plan Orders: Orders AMB Urinalysis Automated Today Z13.9 - Encounter for screening, unspecified Medications: New ciprofloxacin HCl 500 mg PO BID 14 tabs 0RF Patient Instructions: The patient had an opportunity to ask questions regarding treatment plan. The patient expressed understanding and agreement with the above treatment plan. The patient is aware they should contact our office by phone for worsening of their current condition or the appearance of new symptoms. Compliance is encouraged with any medications and followup testing that is ordered. It is a privilege to be allowed the opportunity to participate in the urologic care of your patient. If you have any questions or concerns regarding treatment for the above conditions please do not hesitate to contact me. The office tel ephone contact is [phone]. This note is constructed in part using voice recognition software. While every effort has been made to ensure accuracy sewage plant attendant errors may have been included. Yours sincerely, Rhonda Castañeda MD Coding
== END 2024-08-12 10:36 | disposition home or self-care (01) ==
LOC: HO.HUSH 09:07
PROVIDERS: PCP Internal Medicine Geriatric Medicine; Visit Provider Urology
DX: Z13.9 Encounter for screening, unspecified (principal)

== ENCOUNTER → 2024-08-12 09:07 | Outpatient (BNVA) | payer OTHER, SELFPAY | PROVIDERS: PCP Internal Medicine Geriatric Medicine; Visit Provider Urology | DX: N43.3 Hydrocele, unspecified (principal); R31.29 Other microscopic hematuria; N40.1 Benign prostatic hyperplasia with lower urinary tract symptoms; N13.8 Other obstructive and reflux uropathy; R35.0 Frequency of micturition; N32.89 Other specified disorders of bladder; R97.20 Elevated prostate specific antigen [PSA] | CPT/HCPCS: 81003; 99212 ==

== ENCOUNTER 2024-09-12 09:46 | Outpatient (REF) | payer OTHER, SELFPAY ==
[2024-09-12 10:30] LABS: Hemoglobin 14.4 g/dl (14.0-18.0); Mean Corpuscular HGB Conc 33.5 g/dl (31.0-36.0); Mean Corpuscular Hemoglobin 32.5 pg (27.0-33.0); Mean Corpuscular Volume 97.1 fL (80.0-98.0); Mean Platelet Volume 9.4 fL (9.4-12.4); Platelet Count 154 X10*3/uL (160-400); Red Blood Count 4.43 X10*6/uL (4.60-5.80); Red Cell Distribution Width 13.1 % (11.0-16.0); White Blood Count 3.3 X10*3/uL (4.8-10.8)
[2024-09-12 11:03] LABS: Anion Gap 11 (12-20); Blood Urea Nitrogen 17 mg/dL (9-16); Calcium 9.5 mg/dL (8.4-10.2); Carbon Dioxide 31 mmol/L (22-29); Chloride 97 mmol/L (96-108); Estimated Glomerular Filt Rate > 60; Glucose Random 96 mg/dL (60-115); Potassium 4.8 mmol/L (3.3-5.1); Sodium 134 mmol/L (135-145)
[2024-09-12 11:27] LABS: Prostate Specific Antigen 5.63 ng/mL (<0.05-4.0)
== END 2024-09-12 09:47 | disposition home or self-care (01) ==
LOC: HO.LAB 09:46
PROVIDERS: Visit Provider Urology
DX: N40.1 Benign prostatic hyperplasia with lower urinary tract symptoms (principal); R35.1 Nocturia; R35.0 Frequency of micturition; N32.89 Other specified disorders of bladder; R82.89 Other abnormal findings on cytological and histological examination of urine; Z12.5 Encounter for screening for malignant neoplasm of prostate
CPT/HCPCS: 36415; 80048; 84153; 85027; 87086

== ENCOUNTER 2024-10-05 15:26 | Outpatient (AMB) | payer OTHER, SELFPAY ==
--- OUTSIDE RECORDS SUMMARY | 2024-10-05 15:37 | XMS_ITS | Encounter Summary ---
Author Organization [employer] Address [address] [facility] [address]t [place] [address] Care Team Providers Care Bulldozer Mechanic Name Role Phone Name, Jamie DURHAM Primary Care Provider [phone] Reason for Visit * Reason Comments Med Refill Encounter Details Date Type Department Care Team ([facility] st Contact Info) Description 10/12/2023 Refill [facility] MEDICINE [address] [place], [place] [phone] Name, MD Jamie [address] [place], [place] [phone] Social History Tobacco Use Types Packs/Day Years [...] Care Team (Late st Contact Info) Description 10/07/2024 11:00 AM EDT Office Visit [facility] ADULT DENTAL [address] [place] [address] Rory Lopez, DMD [address] [place] [address] 12/07/2024 9:45 AM EDT Office Visit [facility] MEDICINE [address] [place] [address] Name, MD Jamie [address] [place] [address] documented as of this encounter Visit Diagnoses Not on filedocumented in this encounter Additional Health Concerns Assessment Noted Time PHQ-9 Depression Total Score: 0 07/02/19 24 10:12 AM EST documented as of this encounter Care Teams Bulldozer Mechanic Relationship Specialty Start Date End Date Name, MD Jamie [address] [place] [address] PCP - General Family Medicine 10/29/15 Lia SOFIA 07/02/24 documented as of this encounter
--- NOTE | 2024-10-05 15:43 | MHC.OFFVIS ---
Intake Visit Reasons: PSA results Intake Note: Patient is present for PSA results 09/12 PSA:5.63 Urology Medication:SOLIFENACIN,TAMSULOSIN Antibiotic Allergy:NONE Blood Thinner:NONE Food Production Worker Required: No Allergies No Known Allergies Allergy (Verified 11/14/24 18:04) HPI Comments Details: 10/05/24-- FU BPH, elevated PSA, OAB. LV--08/12/24--Ifeanyi is here for follow-up. He is on VESIcare and Vistaril for urinary symptoms of urgency frequency. He has been on tamsulosin b.i.d. for BPH symptoms. Bilateral hydrocele left greater than right is not symptomatic. PSA was elevated to 9.0, pt was treated for UTI. Repeat PSA--09/12/24-- PSA:5.63. 03/21/24-- 6 month FU--Ifeanyi is a 73 y/o here for follow-up. He was seen last on 07/16/2023 he was started on VESIcare and for urinary symptoms of urgency frequency. He has been on tamsulosin b.i.d. for BPH symptoms. Bilateral hydrocele left greater than right is not symptomatic. no recent PSA since 201809/17/2023--Ifeanyi is here for follow-up. He was seen last on 07/16/2023 he was started on VESIcare and Vistaril for urinary symptoms of urgency frequency. He has been on tamsulosin b.i.d. for BPH symptoms. Bilateral hydrocele left greater than right is not symptomatic. He was evaluated for microscopic hematuria CT urogram was within normal limits urine cytology sent May 2022 had atypical cells. The patient states his PCP discontinued the Vistaril as he is on gabapentin and combination of these meds have a high trans of drowsiness. Bladder scan PVR is 46 mL. He is tolerating VESIcare 5 mg and will continue tamsulosin. Repeat urine cytology. 07/16/23--Ifeanyi is a Uruguayan-speaking male who who presents for office cystoscopy, he was last seen on 06/03/2023 with complaints of right inguinal pain. On examination he has bilateral hydrocele left greater than right. He was referred to General surgery due to right inguinal pain for further evaluation. He denies scrotal pain. He complains of urgency and frequency with nocturia 5-6 times. He was noted on evaluation to have an microscopic hematuria He previously had an MRI noting a hyperdense renal cyst, he was sent for CT urogram. Urine cytology sent on 06/03/[address]23 came back [address] cells[address] urogram no suspicious kidney lesions noted. Office cystoscopy findings--minimal petechiae changes noted, moderate trabeculations. No suspicious bladder lesions. [facility] Medical History Hydrocele, bilateral Renal mass of unknown nature Pectus carinatum BPH (benign prostatic hyperplasia) Urinary retention Surgical History Hx of cystoscopy History of surgery on lower extremity H/O inguinal hernia repair Social History Household Members: Spouse Housing: Apartment Do you presently have visiting nurse or other home services: No Alcohol intake: never Comment: reinforced on bed alarm Patient Tobacco Use Status: Never used Tobacco e-Cigarette/Vaping Use: Never Used Advance Directives: Yes Advance Directives Information Provided: Yes Advance Directives on File: Yes Advance Directives Date on File: 07/08/23 Do you have a plan to hurt others: No Plan service: No Review of Systems Const All systems reviewed & are unremarkable except as noted in HPI and below Reports no additional complaints Eyes Reports no additional complaints ENT Reports no additional complaints Card Reports no additional complaints Resp Reports no additional complaints GI Reports no additional complaints Reports as per HPI Musc Reports no additional complaints Skin/Breast Reports system reviewed and no additional complaints, except as documented Neuro Reports no additional complaints Psych Reports no additional complaints Endo Reports no additional complaints Kingsley/Lymph Reports no additional complaints Aller/Immun Reports no additional complaints Assessment & Plan Assessment & Plan (1) Elevated PSA: Code(s): R97.20 - Elevated prostate specific antigen [PSA] Category: Medical (2) Hydrocele, bilateral: Code(s): N43.3 - Hydrocele, unspecified Category: Medical (3) BPH loc w urin obs/LUTS: Code(s): N40.1 - Benign prostatic hyperplasia with lower urinary tract symptoms Category: Medical (4) Bladder wall thickening: Code(s): N32.89 - Other specified disorders of bladder Category: Medical (5) Urinary frequency: Code(s): R35.0 - Frequency of micturition Category: Medical Plan Monitor PSA, cont vesicare, tamsulosin Orders: Orders PSA,Total (Free>4and<10) 3 Months R97.20 - Elevated prostate specific antigen [PSA] Patient Instructions: The patient had an opportunity to ask questions regarding treatment plan. The patient expressed understanding and agreement with the above treatment plan. The patient is aware they should contact our office by phone for worsening of their current condition or the appearance of new symptoms. Compliance is encouraged with any medications and followup testing that is ordered. It is a privilege to be allowed the opportunity to participate in the urologic care of your patient. If you have any questions or concerns regarding treatment for the above conditions please do not hesitate to contact me. The office telephone contact is [phone]. This note is constructed in part using voice recognition software. While every effort has been made to ensure accuracy medical records specialist errors may have been included. Yours sincerely, Rhonda Castañeda MD Coding Level of Care Code Est Pt Level 4 (49650) Diagnoses Elevated PSA R97.20 Hydrocele, bilateral N43.3 BPH loc w urin obs/LUTS N40.1 Bladder wall thickening N32.89 Urinary frequency R35.0
== END 2024-10-05 15:57 | disposition home or self-care (01) ==
LOC: HO.HUSH 15:27
PROVIDERS: PCP Internal Medicine Geriatric Medicine; Visit Provider Urology
DX: R97.20 Elevated prostate specific antigen [PSA] (principal); N43.3 Hydrocele, unspecified; N40.1 Benign prostatic hyperplasia with lower urinary tract symptoms; N32.89 Other specified disorders of bladder; R35.0 Frequency of micturition
CPT/HCPCS: 99214

== ENCOUNTER → 2024-10-05 15:26 | Outpatient (BNVA) | payer OTHER, SELFPAY | PROVIDERS: PCP Internal Medicine Geriatric Medicine; Visit Provider Urology | DX: N40.1 Benign prostatic hyperplasia with lower urinary tract symptoms (principal); N13.8 Other obstructive and reflux uropathy; R97.20 Elevated prostate specific antigen [PSA]; N43.3 Hydrocele, unspecified; N32.89 Other specified disorders of bladder | CPT/HCPCS: 99212 ==

== ENCOUNTER 2024-10-13 12:49 | Outpatient (REF) | payer OTHER, SELFPAY ==
--- NOTE | ~2024-10-13 | XR_ITS ---
EXAMINATION: XR CHEST 2 VIEWS HISTORY: fever/chills x one week COMPARISON: Comparison is made with the prior examination dated 06/29/2024. FINDINGS: PA and lateral views of the chest are submitted. The examination is limited by severe scoliosis. There is opacification of the left lung base consistent with atelectasis or pneumonia. The right lung appears clear. There is no pneumothorax or pulmonary vascular congestion. The heart is likely normal in size. Again seen is severe dextroscoliosis. XR/XR chest 2V IMPRESSION: Limited examination due to scoliosis. Left lower lobe atelectasis versus pneumonia. Electronically signed by: Kaiser Muller MD 10/13/2024 02:09 PM EDT
--- OUTSIDE RECORDS SUMMARY | 2024-10-13 14:46 | XMS_ITS | Encounter Summary ---
Author Organization [employer] Address [address] [facility] 7t [place] [address] Care Team Providers Care Financial Sales Advisor Name Role Phone Name, Jamie DURHAM Primary Care Provider [phone] Reason for Visit * Reason Comments Chills Encounter Details Date Type Department Care Team ([facility] st Contact Info) Description 10/13/2024 10:20 AM EDT Office Visit [facility] WALK-IN [address] [address] Fever and chills (Primary Dx); Essential hypertension Social History Tobacco Use Types Packs/Day Years [...] t he electric, gas, oil or water [employer] threatened to shut off services in your [...] Sign Reading Time Taken Comments Blood Pressure 169/83 10/13/2024 10:13 AM EDT Pulse 84 10/13/2024 10:13 AM EDT Temperature 36.6 ??C (97.8 ??F) 10/13/2024 10:13 AM E DT Respiratory Rate 17 10/13/2024 10:13 AM EDT Oxygen Saturation 93% 10/13/2024 10:13 AM EDT Inhaled Oxygen Concentration - - Weight 41.5 kg (91 lb 6.4 oz) 10/13/2024 10:13 A M EDT Height - - Body Mass Index 25.7 08/11/2024 10:36 AM EDT documented in this encounter Plan of Treatment Upcoming Encounters Date Type Department Care Team (Late st Contact Info) Description 10/26/2024 11:00 AM EDT Office Visit [facility] CHC ADULT DENTAL [address] [place] [address] Rory Lopez, ZA [address] [place] [address] 12/07/2024 9:45 AM EDT Office Visit [facility] MEDICINE [address] [place] [address] Name, MD Jamie [address] [place] [address] Scheduled Orders Name Type Priority Associated Diagnoses Orde r Schedule Culture, Urine, Routine Microbiology Routine Fever and chills Ordered: 10/13/2024 documented as of this encounter Procedures Procedure Name Priority Date/Time Associated Diagnosis Comments XR CHEST 2 VIEWS STAT 10/13/2024 12:0 9 PM EDT Fever and chills POCT URINALYSIS DIPSTICK Routine 10/13/2024 11:06 AM EDT Fever and chills POCT INFLUENZA B (ID NOW RAPID MOLECULAR) Routine 10/13/2024 10:35 AM EDT Fever and chills POCT INFLUENZA A (ID NOW RAPID MOLECULAR) Routine 10/13/2024 10:35 AM EDT Fever and chills POCT RAPID COVID ANTIGEN Routine 10/13/2024 10:35 AM EDT Fever and chills documented in this encounter Results * XR Chest 2 Views (10/13/2024 12:09 PM EDT) Anatomical Region Laterality Modality Chest Radiographic Iliana ging 10/13/2024 12:0 9 PM EDT Narrative 10/13/2024 2:11 PM EDT ?[facility] ?[address] ?[place] [address] ?XRay Report ? Signed ? Patient: Ifeanyi White ?MR#: [id number] ?? [id number] ? : 1950 ?Acct:[id number] ? Age/Sex: 73 / M ?ADM Date: 10/13/24 ? Loc: HO.HHCX ? Attending Dr: Ani Yost DO ? Ordering Physician: Ani Yost DO ?? Date of Service: 10/13/24 ?? Procedure(s): XR chest 2V ?? Accession Number(s): [id number] ? cc: Ani Yost Gustavo DO ? EXAMINATION: ??XR CHEST 2 VIEWS ? HISTORY: fever/chills x one week ? COMPARISON: Comparison is made with the prior examination dated ?? 06/29/2024. ? FINDINGS: ??PA and lateral views of the chest are submitted. The ?? examination is limited by severe scoliosis. There is opacification of ?? the left lung base consistent with atelectasis or pneumonia. The right ?? lung appears clear. ??There is no pneumothorax or pulmonary vascular ?? congestion. ??The heart is likely normal in size. ??Again seen is severe ?? dextroscoliosis. ? XR/XR chest 2V ?? IMPRESSION: ?? Limited examination due to scoliosis. Left lower lobe atelectasis ?? versus pneumonia. ? Electronically signed by: ??Kaiser Muller MD ??10/13/2024 02:09 PM EDT ? Dictated By: ?Kaiser Muller MD ? Signed By: ?<Electronically signed by Kaiser Muller MD in OV> ?10/13/24 1409 ? DD/ 1209 ? TD/TT: 10/13/24 1215 ? Merchandise Pickup/Receiving Associate: ? Procedure Note Marquez, Image - 10/13/[address] [address] XRay Report Signed Patient: Ifeanyi White AMR#: [id number] : 1950cct:[id number] Age/Sex: 73 / MADM Date: 10/13/24 Loc: HO.HHCX Attending Dr: Ani Yost DO Ordering Physician: Ani Yost DO Date of Service: 10/13/24 Procedure(s): XR chest 2V Accession Number(s): [id number] cc: Ani Yost DO EXAMINATION: XR CHEST 2 VIEWS HISTORY: fever/chills x one week COMPARISON: Comparison is made with the prior examination dated 06/29/2024. FINDINGS: PA and lateral views of the chest are submitted. The examination is limited by severe scoliosis. There is opacification of the left lung base consistent with atelectasis or pneumonia. The right lung appears clear. There is no pneumothorax or pulmonary vascular congestion. The heart is likely normal in size. Again seen is severe dextroscoliosis. XR/XR chest 2V IMPRESSION: Limited examination due to scoliosis. Left lower lobe atelectasis versus pneumonia. Electronically signed by: Kaiser Muller MD 10/13/2024 02:09 PM EDT Dictated By: Kaiser Muller MD Signed By: <Electronically signed by Kaiser Muller MD in OV> 10/13/24 1409 DD/ 1209 TD/TT: 10/13/24 1215 Merchandise Pickup/Receiving Associate: Ani Yost DO IMG XR PROCEDURES Edited Res ult - Final * (ABNORMAL) POCT urinalysis dipstick manually resulted (10/13/2024 11:06 AM EDT) Pathologist [facility] Color, UA Yellow Clarity, UA Clear Glucose, UA Negative Bilirubin, UA Negative Ketones, UA Negative Spec Grav, UA 1.015 Blood, UA Positive(A) Negative, None Detected Comment:trace- intact pH, UA 8.5 Protein, UA Negative Urobilinogen, UA 0.2 Leukocytes, UA Negative Negative, Rare, Trace Nitrite, UA Negative Negative, None Detected Urine 10/13/2024 11:0 6 AM EDT Ani Yost DO POINT OF CARE TEST ENTER/TAYLOR T ORDERABLES Final Result * Influenza B (ID NOW Rapid Molecular) (10/13/2024 10:35 AM EDT) [facility] Influenza B Negative Negative, Indeterminate [facility] Swab 10/13/2024 10:3 5 AM EDT Ani Yost DO POINT OF CARE TEST ENTER/TAYLOR T ORDERABLES Final Result [facility] [address] [place] [address] [phone] * Influenza A (ID NOW Rapid Molecular) (10/13/2024 10:35 AM EDT) [facility] Influenza A Negative Negative, Indeterminate [facility] Swab 10/13/2024 10:3 5 AM EDT us Ani Yost DO POINT OF CARE TEST ENTER/TAYLOR T ORDERABLES Final Result Performing Organization Address City/[facility]/ZIP Co de Phone Number [facility] [address] [place] [address] [phone] * POCT Rapid COVID Ag (10/13/2024 10:35 AM EDT) Rapid COVID Ag Negative [facility] Swab 10/13/2024 10:3 5 AM EDT Ani Yost DO POINT OF CARE TEST ENTER/TAYLOR T ORDERABLES Final Result Performing Organization Address [facility] Co de Phone Number [facility] [address] [place] [address] [phone] documented in this encounter Visit Diagnoses Diagnosis Fever and chills- Primary Fever, unspecified Essential hypertension Unspecified essential hypertension documented in this encounter Additional Health Concerns Assessment Noted Time PHQ-9 Depression Total Score: 0 07/09/19 25 1:47 PM EST documented as of this encounter Care Teams Financial Sales Advisor Relationship Specialty Start Date End Date Name, MD Jamie [address] [place] [address] PCP - [facility] documented as of this encounter
== END 2024-10-13 12:50 | disposition home or self-care (01) ==
LOC: HO.HHCX 12:49
PROVIDERS: Visit Provider Family Medicine
DX: R50.9 Fever, unspecified (principal)
CPT/HCPCS: 71046; 87086

== ENCOUNTER → 2024-10-13 12:49 | Outpatient (BNV) | payer OTHER, SELFPAY | PROVIDERS: Visit Provider Radiology Diagnostic Radiology | DX: R91.8 Other nonspecific abnormal finding of lung field (principal) | CPT/HCPCS: 71046 ==

== ENCOUNTER 2024-11-14 17:14 | Emergency (ER) | payer OTHER, SELFPAY ==
--- NOTE | ~2024-11-14 | XR_ITS ---
CLINICAL HISTORY: short of breath Two views of the chest. COMPARISON: XR chest dated 10/13/24 at 13:09 EDT FINDINGS: Technically limited study secondary to patient's marked scoliosis. Borderline cardiomegaly. Low lung volumes. Consolidation along the left hemidiaphragm and retrocardiac region. No definite pleural effusion. No pneumothorax. Severe scoliosis. Osteopenia. No acute fracture. IMPRESSION: 1. Consolidation along the left hemidiaphragm and retrocardiac region suggestive of atelectasis versus pneumonia. 2. Severe scoliosis. This document has been electronically signed by: Suleiman Hunter MD on 11/14/2024 18:30:37
[2024-11-14 17:53] VITALS: BP 166/67; PULSE 79; RESP 16; TEMP 36.7; O2SAT 95; BMI 23.9
--- NOTE | 2024-11-14 18:06 | ECG_ITS ---
Test Reason : SOB Blood Pressure : */* mmHG Vent. Rate : 72 BPM Atrial Rate : 72 BPM P-R Int : 144 ms QRS Dur : 116 ms QT Int : 392 ms P-R-T Axes : 37 132 35 degrees QTcB Int : 429 ms Normal sinus rhythm Right bundle branch block Left posterior fascicular block Bifascicular block Abnormal ECG When compared with ECG of 27-Jun-2024 12:09, No significant change was found Referred By: Latoya Pond Electronically Signed By: NATO COLLIER
--- NOTE | 2024-11-14 18:08 | ED.GENADULT ---
HPI - General Adult General Chief complaint: Upper Respiratory Symptoms Stated complaint: Difficulty breathing, cold Time Seen by Provider: 11/14/24 20:36 Source: patient Mode of arrival: ambulatory Limitations: no limitations History of Present Illness ED Provider: joshua luna np HPI narrative: Patient is a 74-year-old male who presents emergency department for evaluation. He has been experiencing shortness of breath over the past week but states that he felt worse this morning. Has had general fatigue and admits to having chills but no reportable fever. He has been using inhalers at home which helped for a short while but then returned. He reports an associated nonproductive cough. He was treated with course of antibiotics for pneumonia about 3 weeks ago. States he has been compliant with his diuretic, denies any increase in swelling to the lower extremities, has been wearing compression socks. Denies orthopnea. No recent trauma. Denies sore throat, difficulty swallowing, neck pain, chest pain, palpitations, abdominal pain, numbness or tingling of the extremities, lower extremity pain. Related Data Home Medications ?Medication ?Instructions ?Recorded ?Confirmed gabapentin 300 mg capsule 300 mg PO DAILY 06/03/23 06/27/24 latanoprost 0.005 % eye drops 1 drp ophthalmic-Left QPM 06/03/23 06/27/24 naproxen 500 mg tablet 500 mg PO BID PRN Pain 06/03/23 06/27/24 losartan 25 mg tablet 25 mg PO DAILY 07/04/23 06/27/24 atorvastatin 20 mg tablet 20 mg PO DAILY 06/27/24 06/27/24 hqnaeulpynzgtgerojorql-kalqkncc-gggkuguz 1 drp ophthalmic-Left BEDTIME 06/27/24 06/27/24 80 0.5 %-1 %-0.5 % eye drops (Refresh Optive Advanced) timolol maleate 0.5 % eye drops 1 drp ophthalmic-Left DAILY 06/27/24 06/27/24 Previous Rx's ?Medication ?Instructions ?Recorded tamsulosin 0.4 mg capsule 0.8 mg (2 x 0.4 mg) PO DAILY #180 03/21/24 caps finasteride 5 mg tablet 5 mg PO DAILY 30 days #30 tabs 03/28/24 furosemide 20 mg tablet (Lasix) 20 mg PO DAILY #30 tabs 06/30/24 cefpodoxime 200 mg tablet 200 mg PO BID #10 tabs 11/14/24 doxycycline hyclate 100 mg capsule 100 mg PO BID #10 caps 11/14/24 Allergies Allergy/AdvReac Type Severity Reaction Status Date / Time No Known Allergies Allergy Verified 11/14/24 18:04 Review of Systems Review of Systems: Yes all other systems are reviewed and are negative [facility] Past Medical History Attestation statement: The following information was validated with the patient. Source: old records reviewed Medical History Hydrocele, bilateral Renal mass of unknown nature Pectus carinatum BPH (benign prostatic hyperplasia) Urinary retention Surgical History Hx of cystoscopy History of surgery on lower extremity H/O inguinal hernia repair Social History Social History Household Members: Spouse Housing: Apartment Do you presently have visiting nurse or other home services: No Alcohol intake: never Comment: reinforced on bed alarm Patient Tobacco Use Status: Never used Tobacco e-Cigarette/Vaping Use: Never Used Advance Directives Date on File: 07/08/23 Do you have a plan to hurt others: No Plan service: No Physical Exam ED Vital Signs: Vital Signs - 24 hr 11/14/24 17:53 Temperature 98.0 F Pulse Rate 79 Respiratory Rate 16 Blood Pressure 166/67 H Pulse Oximetry 95 Oxygen Delivery Method Room Air BMI result Body Mass Index 23.9 Appearance: Alert.?Oriented to person, place and time. No acute distress.?Normal affect. Eyes: Pupils equal, round and reactive to light.? ENT: Pharynx normal.?? Neck: Normal inspection.? Neck supple.?? CVS: Heart sounds normal. Normal heart rate and rhythm.? Pulses normal.?? Respiratory: No respiratory distress.? Lung sounds clear to auscultation bilaterally?? Abdomen: Soft and non-tender. Normoactive bowel sounds. Skin: Skin warm and dry.? Normal skin color.? Extremities: 1+ bilateral lower extremity edema.? No calf ttp? Neuro: Moves all extremities spontaneously. Sensation intact bilaterally. No focal neuro deficits. Ambulates with normal steady gait. Course Course Course Narrative: 11/14/24 758 ILYA Mkceon This is a Rapid Medical Examination (RME) performed by Annia Pond PA-C in triage. Full HPI, ROS, assessment and treatment plan per primary provider in the Main ED. Hx: 74 yo M here for eval of SOB x1 week, worsening today. +weakness, chills, chest tightness. hx asthma, using home inhalers w/ little relief. recent PNA, completed abx. Plan: labs, ekg, cxr, viral swabs Medical Decision Making Medical Decision Making [facility] Narrative: Patient is a 74-year-old male with past medical history of BPH, chronic bilateral hydroceles who self catheterizes, CHF, pectus carinatum who presents emergency department for evaluation of shortness of breath as per HPI. He is overall well-appearing, nontoxic, afebrile cardia no tachypnea or hypoxia. Had an ambulatory O2 emergency department with no significant dyspnea noted, O2 saturation remained > 94% on room air. No rash or lesions, urticaria, or evidence of angioedema to suggest allergic reaction/anaphylaxis. No swallowing difficulties to suggest aspiration. No associated chest pain, lower extremity redness or pain, history of VTE/malignancy to suggest ACS, pericardial effusion, or pulmonary embolism. Has a history of CHF, reports lower extremity swelling to be at baseline compliant with diuretics, will assess BNP and CXR for pleural effusions. No palpitations or history of known arrhythmias. Will obtain viral serologies and radiation to CXR to evaluate for pneumonia. No history of diabetes, unlikely DKA. No acute bleeding or known anemia, no associated dizziness fatigue or chest pain to suggest acute anemia. No history of asthma or COPD to suggest acute exacerbation. Respiratory status is stable, will discharge home with course of antibiotics for pneumonia. Given strict return precautions. All questions answered. Stable for discharge Differential Diagnosis Differential Diagnoses: The differential diagnosis associated with the presentation includes (See narrative above) Admission/Observation Consideration of admission/observation: Escalation of care including admission/observation considered Lab Data [facility] Lab Attestation statement: I reviewed the patient's lab results. CBC is without leukocytosis anemia or thrombocytopenia. No electrolyte derangement no JOSELO. LFTs unremarkable. High sensitive troponin with the range. BNP of 49. LFTs unremarkable. Viral serologies are negative. 11/14/24 18:34 11/14/24 18:34 Labs: Lab Results 11/14/24 Range/Units 18:34 WBC 5.3 (4.8-10.8) X10*3/uL RBC 4.68 (4.60-5.80) X10*6/uL Hgb 15.1 (14.0-18.0) g/dl Hct 43.9 (42.0-52.0) % MCV 93.8 (80.0-98.0) fL MCH 32.3 (27.0-33.0) pg MCHC 34.4 (31.0-36.0) g/dl RDW 12.4 (11.0-16.0) % Plt Count 161 (160-400) X10*3/uL MPV 9.2 L (9.4-12.4) fL Immature Gran % (Auto) 0.4 (0.0-0.4) % Neut % (Auto) 67.2 (45-73) % Lymph % (Auto) 24.8 (20-40) % Mcdonough % (Auto) 6.6 (2-11) % Eos % (Auto) 0.8 (0-4) % Baso % (Auto) 0.2 (0-2) % Lymph # (Auto) 1.3 (1.2-4.9) X10*3/uL Mcdonough # (Auto) 0.4 (0.1-1.2) X10*3/uL Eos # (Auto) 0.0 (0.0-0.4) X10*3/uL Baso # (Auto) 0.0 (0.0-0.2) X10*3/uL Abs Immat Gran (auto) 0.02 (0.00-0.03) X10*3/uL Absolute Neuts (auto) 3.6 (2.0-8.3) x10*3/uL Absolute Nucleated RBC 0.000 (0.0-0.012) X10*3/uL Nucleated RBC % (auto) 0.0 (0.0-0.2) /100WBC Sodium 135 (135-145) mmol/L Potassium 4.6 (3.3-5.1) mmol/L Chloride 98 (96-108) mmol/L Carbon Dioxide 31 H (22-29) mmol/L Anion Gap 11 L (12-20) BUN 16 (9-16) mg/dL Creatinine 0.80 (0.5-1.4) mg/dL Estim Creat Clear Calc 36.2 Estimated GFR > 60 Random Glucose 109 (60-115) mg/dL Calcium 9.4 (8.4-10.2) mg/dL Magnesium 2.1 (1.6-2.6) mg/dL Total Bilirubin 0.5 (0.0-1.0) mg/dL AST 21 (5-37) U/L ALT 12 (0-40) U/L Alkaline Phosphatase 94 (39-117) U/L Troponin I High Sens 4.5 D (<3.5-35.0) ng/L B-Natriuretic Peptide 49 (<100) pg/mL Total Protein 7.2 (6.5-8.0) g/dL Albumin 4.5 (3.5-5.0) g/dL Lipase 47 (8-78) U/L Influenza Type A (PCR) NEGATIVE (Negative) Influenza Type B (PCR) NEGATIVE (Negative) RSV RNA Qual (PCR) NEGATIVE (Negative) SARS-CoV-2 RNA (RT-PCR) NEGATIVE (Negative) Independent Interpretation I performed an independent interpretation of an: EKG (Normal sinus rhythm with bifascicular block as seen on prior ventricular rate of 72, normal CANDI, QTC 429, no ST-elevation) Radiology Impression Discussion of test interpretation with radiology: I have reviewed the radiologist's reading. Radiologist Impression: Two views of the chest. COMPARISON: XR chest dated 10/13/24 at 13:09 EDT FINDINGS: Technically limited study secondary to patient's marked scoliosis. Borderline cardiomegaly. Low lung volumes. Consolidation along the left hemidiaphragm and retrocardiac region. No definite pleural effusion. No pneumothorax. Severe scoliosis. Osteopenia. No acute fracture. IMPRESSION: 1. Consolidation along the left hemidiaphragm and retrocardiac region suggestive of atelectasis versus pneumonia. 2. Severe scoliosis. Independent Historian Clinical information obtained from an independent historian. History obtained from or confirmed by: Friend External Record Review External record reviewed: Outpatient record Chronic Conditions Patient?s care impacted by: Other (See narrative above) Discharge Plan Discharge Clinical Impression: Pneumonia Qualifiers: Pneumonia type: due to unspecified organism Laterality: left Lung location: lower lobe of lung Qualified Code(s): J18.9 - Pneumonia, unspecified organism Patient Disposition: Home, Self-Care Instructions: Pneumonia (ED) Additional Instructions: Workup today is concerning for pneumonia, for which course of antibiotics has been sent to the pharmacy. Please complete the entire course not skip any doses or stop taking early even if you begin to feel better. Return with any new or worsening symptoms or concerns which include but is not limited to persistent fevers, shaking chills, chest pain, worsening shortness of breath/difficulty breathing, numbness or tingling of the extremities, dizziness, lightheadedness. Follow-up with your primary care doctor. Prescriptions: New cefpodoxime 200 mg tablet 200 mg PO BID Qty: 10 0RF Rx Instructions: must administer with a meal/food doxycycline hyclate 100 mg capsule 100 mg PO BID Qty: 10 0RF No Action finasteride 5 mg tablet 5 mg PO DAILY 30 Days Qty: 30 4RF losartan 25 mg tablet 25 mg PO DAILY timolol maleate 0.5 % drops 1 drp ophthalmic-Left DAILY atorvastatin 20 mg tablet 20 mg PO DAILY Refresh Optive Advanced 0.5-1-0.5 % Drops 1 drp ophthalmic-Left BEDTIME furosemide [Lasix] 20 mg tablet 20 mg PO DAILY Qty: 30 0RF naproxen 500 mg tablet 500 mg PO BID PRN (Reason: Pain) gabapentin 300 mg capsule 300 mg PO DAILY latanoprost 0.005 % drops 1 drp ophthalmic-Left QPM tamsulosin 0.4 mg capsule 0.8 mg PO DAILY Qty: 180 3RF Referrals: Name,MD Jamie [Primary Care Provider, Internal Medicine] Print Language: Kinyarwanda
--- NOTE | 2024-11-14 18:29 | MHC.EDTECH ---
ekg delay due to ekg machine in use . nurse aware
[2024-11-14 18:39] LABS: MANUAL DIFF FLAG NO
[2024-11-14 18:46] LABS: Hematocrit 43.9 % (42.0-52.0); Hemoglobin 15.1 g/dl (14.0-18.0); Imm Gran Abs Auto 0.02 X10*3/uL (0.00-0.03); Imm Gran Pct Auto 0.4 % (0.0-0.4); Lymphocytes Absolute Auto 1.3 X10*3/uL (1.2-4.9); Mean Corpuscular HGB Conc 34.4 g/dl (31.0-36.0); Mean Corpuscular Hemoglobin 32.3 pg (27.0-33.0); Mean Corpuscular Volume 93.8 fL (80.0-98.0); NRBC Abs Auto 0.000 X10*3/uL (0.0-0.012); NRBC Pct Auto 0.0 /100WBC (0.0-0.2); Platelet Count 161 X10*3/uL (160-400); Red Blood Count 4.68 X10*6/uL (4.60-5.80); White Blood Count 5.3 X10*3/uL (4.8-10.8)
[2024-11-14 18:53] LABS: Alanine Aminotransferase 12 U/L (0-40); Albumin Level 4.5 g/dL (3.5-5.0); Alkaline Phosphatase 94 U/L (39-117); Anion Gap 11 (12-20); Aspartate Amino Transferase 21 U/L (5-37); Blood Urea Nitrogen 16 mg/dL (9-16); Calcium 9.4 mg/dL (8.4-10.2); Carbon Dioxide 31 mmol/L (22-29); Chloride 98 mmol/L (96-108); Creatinine Clr Calc Pharmacy 36.2; Estimated Glomerular Filt Rate > 60; Lipase 47 U/L (8-78); Magnesium 2.1 mg/dL (1.6-2.6); Potassium 4.6 mmol/L (3.3-5.1); Sodium 135 mmol/L (135-145); Total Protein 7.2 g/dL (6.5-8.0)
[2024-11-14 19:01] LABS: Troponin-I High Sensitivity 4.5 ng/L (<3.5-35.0)
[2024-11-14 19:17] LABS: Resp Syncy Virus RNA Qual PCR NEGATIVE (Negative); SARS COV2 PCR INHOUSE NEGATIVE (Negative)
[2024-11-14 21:21] LABS: B Type Natriuretic Peptide 49 pg/mL (<100)
[2024-11-14 22:08] VITALS: BP 143/86; PULSE 70; RESP 18; TEMP 36.5; O2SAT 95
[2024-11-14 22:26] VITALS: BP 143/86; PULSE 70; RESP 18; TEMP 36.5; O2SAT 95
== END 2024-11-14 22:27 | disposition home or self-care (01) ==
PROVIDERS: Nurse Practitioner Family; Physician Assistant Medical; Emergency Provider Emergency Medicine; PCP Internal Medicine Geriatric Medicine
DX: J18.9 Pneumonia, unspecified organism (principal); R06.02 Shortness of breath; R53.83 Other fatigue; R05.9 Cough, unspecified; I50.9 Heart failure, unspecified
CPT/HCPCS: 36415; 71046; 80053; 83690; 83735; 83880; 84484; 85025; 87637; 93005; 99283

== ENCOUNTER → 2024-11-14 18:06 | Outpatient (BNV) | payer OTHER, SELFPAY | PROVIDERS: Emergency Provider Emergency Medicine; PCP Internal Medicine Geriatric Medicine; Visit Provider Internal Medicine | DX: R06.00 Dyspnea, unspecified (principal) | CPT/HCPCS: 93010 ==

== ENCOUNTER → 2024-11-14 18:06 | Outpatient (BNV) | payer OTHER, SELFPAY | PROVIDERS: PCP Internal Medicine Geriatric Medicine; Visit Provider Radiology Diagnostic Radiology | DX: R06.02 Shortness of breath (principal); M41.9 Scoliosis, unspecified | CPT/HCPCS: 71046 ==

== ENCOUNTER 2025-01-12 09:27 | Outpatient (REF) | payer OTHER, SELFPAY ==
--- OUTSIDE RECORDS SUMMARY | 2025-01-12 10:58 | XMS_ITS | Encounter Summary ---
Author Organization [employer] Address [address] [facility] 7[address] [place] [address] Care Team Providers Care Precast Molder Name Role Phone Name, Jamie DURHAM Primary Care Provider [phone] Reason for Visit * Reason Comments Med Refill Encounter Details Date Type Department Care Team ([facility] st Contact Info) Description 08/10/2023 Refill [facility] MEDICINE [address] [place], [place] [phone] Name, MD Jamie [address] [place], [place] [phone] Social History Tobacco Use Types Packs/Day Years [...] Care Team (Late st Contact Info) Description 03/02/2025 10:30 AM EDT Office Visit [facility] MEDICINE [address] [place] [phone] Name, MD Jamie [address] [place] [address] documented as of this encounter Visit Diagnoses Not on filedocumented in this encounter Additional Health Concerns Assessment Noted Time PHQ-9 Depression Total Score: 0 07/02/19 24 10:12 AM EST documented as of this encounter Care Teams Precast Molder Relationship Specialty Start Date End Date Name, MD Jamie [address] [place] [address] PCP - General Family Medicine 10/29/15 Lia Gustavo 07/02/24 documented as of this encounter
--- OUTSIDE RECORDS SUMMARY | 2025-01-12 10:58 | XMS_ITS | Encounter Summary ---
Author Organization [employer] Address [address] [facility] 7t [place] [address] Care Team Providers Care Rivet Sorter Name Role Phone Name, Jamie DURHAM Primary Care Provider Encounter Details Date Type Department Care Team (Late st Contact Info) Description 06/14/2023 Abstract [facility] MEDICINE [address] [place], [place] [phone] Name, MD Jamie [address] [place], [place] [phone] Social History Tobacco Use Types Packs/Day Years [...] Description 03/02/2025 10:30 AM EDT Office Visit [facility] MEDICINE [address] [place] [address] Name, MD Jamie [address] [place] [address] documented as of this encounter Visit Diagnoses Not on filedocumented in this encounter Care Teams Rivet Sorter Relationship Specialty Start Date End Date Name, MD Jamie [address] [place] [phone] PCP - General Family Medicine 10/29/15 L[facility] 07/02/24 documented as of this encounter
--- OUTSIDE RECORDS SUMMARY | 2025-01-12 10:58 | XMS_ITS | Encounter Summary ---
Author Organization [employer] Address [address] [facility] 7t [place] [address] Care Team Providers Care Food And Beverage Controller Name Role Phone Name, Jamie DURHAM Primary Care Provider [phone] Encounter Details Date Type Department Care Team (Late st Contact Info) Description 08/26/2023 Telephone [facility] MEDICINE [address] [place], [place] [phone] Name, MD Jamie [address] [place] [address] Social History Tobacco Use Types Packs/Day Years [...] your housing situation today? I have taylor jett 07/02/[address] you li [...] Description 03/02/2025 10:30 AM EDT Office Visit [facility] MEDICINE [address] [place] [phone] Name, MD Jamie [address] [place] [address] documented as of this encounter Visit Diagnoses Not on filedocumented in this encounter Additional Health Concerns Assessment Noted Time PHQ-9 Depression Total Score: 0 07/02/19 24 10:12 AM EST documented as of this encounter Care Teams Food And Beverage Controller Relationship Specialty Start Date End Date Name, MD Jamie [address] [place] [address] PCP - General Family Medicine 10/29/15 Lia [facility] 07/02/24 documented as of this encounter
--- OUTSIDE RECORDS SUMMARY | 2025-01-12 10:58 | XMS_ITS | Encounter Summary ---
Author Organization [employer] Address [address] [facility] [address]t [place] [address] Care Team Providers Care Recovery Assistant Name Role Phone Name, Jamie DURHAM Primary Care Provider [phone] Encounter Details Date Type Department Care Team (Latest Contact Info) Description 08/24/2018 Abstract [facility] CON[facility] Dental, Provider, DDS Social History [...] Description 03/02/2025 10:30 AM EDT Office Visit [facility] [address] [place] [phone] NameJamie MD [address] [place] [address] documented as of this encounter Visit Diagnoses Not on filedocumented in this encounter Care Teams Recovery Assistant Relationship Specialty Start Date End Date Name, MD Jamie [address] [place] [phone] PCP - General Family Medicine 10/29/15 [place] 07/02/24 documented as of this encounter
--- OUTSIDE RECORDS SUMMARY | 2025-01-12 10:58 | XMS_ITS | Encounter Summary ---
Author Organization [employer] Address [address] [place] [address] 7t [place] [address] Care Team Providers Care Roof Promenade Tile Setter Name Role Phone Name, Jamie DURHAM Primary Care Provider [phone] Encounter Details Date Type Department Care Team (Late st Contact Info) Description 10/03/2022 Abstract [facility] [address] [place] [phone] NameJamie MD [address] [place] [address] [phone] Social History Tobacco Use Types Packs/Day Years [...] Description 03/02/2025 10:30 AM EDT Office Visit [facility] [address] [place] [phone] Jamie Garcia MD [address] [place] [address] [phone] documented as of this encounter Procedures Procedure [...] on filedocumented in this encounter Care Teams Roof Promenade Tile Setter Relationship Specialty Start Date End Date Name, MD Jamie [address] [place] [address] PCP - General Family Medicine 10/29/15 [place] [facility] 07/02/24 documented as of this encounter
--- OUTSIDE RECORDS SUMMARY | 2025-01-12 10:58 | XMS_ITS | Encounter Summary ---
Author Organization [employer] Address [address] [facility] 7t [place] [address] Care Team Providers Care Flooring Installer Name Role Phone Name, Jamie DURHAM Primary Care Provider [phone] Reason for Visit * Reason Comments Med Refill Encounter Details Date Type Department Care Team ([facility] st Contact Info) Description 06/08/2024 Refill [facility] [address] [place], [place] [phone] Name, MD Jamie [address] [place], [place] [phone] Social History Tobacco Use Types Packs/Day Years [...] Description 03/02/2025 10:30 AM EDT Office Visit [facility] [address] [place] [phone] Name, MD Jamie [address] [place] [phone] documented as of this encounter Visit Diagnoses Not on filedocumented in this encounter Additional Health Concerns Assessment Noted Time PHQ-9 Depression Total Score: 0 07/02/19 24 10:12 AM EST documented as of this encounter Care Teams Flooring Installer Relationship Specialty Start Date End Date Name, MD Jamie [address] [place] [phone] PCP - General Family Medicine 10/29/15 [facility] 07/02/24 documented as of this encounter
--- OUTSIDE RECORDS SUMMARY | 2025-01-12 10:58 | XMS_ITS | Encounter Summary ---
Author Organization [employer] Address [address] [facility] 7t [place] [address] Care Team Providers Care Nutrition Services Aide Name Role Phone Name, Jamie DURHAM Primary Care Provider [phone] Reason for Visit * Reason Onset Date Comments Hospital Follow-up 07/04/2024 Encounter Details Date Type Department Care Team ([facility] st Contact Info) Description 07/04/2024 Telephone [facility] MEDICINE [address] [place], [place] [phone] Name, MD Jamie [address] [place] [address] Hospital Follow-up Social History Tobacco Use Types [...] from pt requesting a HDF appt. Hospital: [facility] Date of admission: 06/28 Discharge date: 06/30 Diagnosed: pneumonia, flu *Send message to [facility] [phone] bruneian documented in this encounter Plan of Treatment Upcoming Encounters Date Type Department Care Team (Late st Contact Info) Description 03/02/2025 10:30 AM EDT Office Visit [facility] MEDICINE [address] [place] [phone] Name, MD Jamie [address] [place] [phone] documented as of this encounter Visit Diagnoses Not on filedocumented in this encounter Additional Health Concerns Assessment Noted Time PHQ-9 Depression Total Score: 0 07/02/19 24 10:12 AM EST documented as of this encounter Care Teams Nutrition Services Aide Relationship Specialty Start Date End Date NameJamie MD [address] [place] [phone] PCP - General Family Medicine 10/29/15 [facility] 07/02/24 documented as of this encounter
--- OUTSIDE RECORDS SUMMARY | 2025-01-12 10:58 | XMS_ITS | Clinical Summary ---
Author Organization [employer] Address [address] [place] [address] [address] [place] [address] Care Team Providers Care Flag Signalman Name Role Phone Name, Jamie DURHAM Primary Care Provider [phone] Allergies Active Allergy Reactions Criticality Noted Date [...] mg by mouth Once per day. Active atorvastatin (Lipitor) 20 MG tabletIndicatio ns:Scrotal pain,Hydrocele in adult TAKE 1 TABLET(20 MG) BY MOUTH IN THE MORNING 90 tablet 01/06/20 24 Active losartan (Cozaar) 50 MG tablet [...] mouth Once per day. 04/01/20 24 Active tamsulosin (Flomax) 0.4 MG 24 hr capsule TAKE 2 CAPSULES BY MOUTH EVERY DAY 30 MINUTES AFTER THE SAME MEAL 180 capsule 1 09/06/19 25 Active cetirizine (ZyrTEC) 10 MG tablet Take 1 tablet (10 mg) by mouth Once per day. 30 tablet 3 10/14/19 25 026 Active fluticasone (Flonase) 50 MCG/ACT nasal spray Administer 2 sprays into each nostril Once per day. Shake gently. Before first use, prime pump. After use, clean tip and replace cap. 16 g 3 10/14/19 25 026 Active naproxen (Naprosyn) 500 MG tabletIndicatio ns:Back pain, unspecified back location, unspecified back pain laterality, unspecified chronicity Take 1 tablet (500 mg) by mouth with breakfast and with evening meal. 60 tablet 12/08/19 25 Active gabapentin (Neurontin) 300 MG capsule TAKE 1 CAPSULE(300 MG) BY MOUTH THREE TIMES DAILY 84 capsule 2 12/28/19 25 Active gabapentin (Neurontin) 300 MG capsule TAKE 1 CAPSULE(300 MG) BY MOUTH THREE TIMES DAILY 84 capsule 2 04/04/20 24 025 Discontinued Active Problems Problem Noted Date Diagnosed Date Pneumonia 11/23/2024 Hyponatremia 09/15/2023 Acute retention of urine 09/15/2023 Hydrocele, bilateral 07/02/2023 Renal mass of unknown nature 07/02/2023 Adrenal adenoma, left 07/02/2023 Overview (07/02/2023): 1.5 left adrenal incidentiloma (found on CT ordered by urology for renal stones). Blood work normal including screening for subclinical Perry and 24 urine metanephrines. His MRI was [...] stone 10/09/2017 Overview (09/15/2023): He follows with [facility] Has renal stones BPH Benign non functioning adrenal nodule And posterior diaphragmatic hernia with intrathoracic kidneys Raised prostate specific antigen 06/02/2017 Hearing aid worn 12/03/2015 Short stature disorder 12/03/2015 Hearing problem 09/06/2013 Resolved Problems Problem Noted Date Diagnosed Date Resolved Date Acute epididymitis 09/15/2023 Cellulitis of scrotum 09/15/20232023 CHF (congestive heart failure) 07/02/2023 08/19/2024 Overview (12/16/2023): ? Diastolic He collado normal EF on numerous ECHOs Deep right inguinal pain 07/02/2023 Dysuria 06/02/2017 03/13/2023 Microscopic hematuria 06/02/20172023 Mean red blood cell volume increased 03/02/2017 07/02/2023 Diverticulitis of sigmoid colon 09/10/2016 09/15/2023 Overview (03/13/2023): One episode uncom[facility] [place] [facility] [place]2016 Normal colonoscopy the same year Repeat colonoscopy recommended in 10 years Cervical radiculitis 03/18/2012 024 Cervical spinal stenosis 03/18/2012 Neck pain 03/18/2012 03/13/2023 Low back pain 09/24/2009 07/02/2023 Scoliosis 09/24/2009 08/19/2024 Groin pain 09/24/2009 03/13/2023 Neuropathic pain syndrome (non-herpetic) 09/24/2009 03/13/2023 Encounters Date Type Department Care Team Description 12/26/2024 Refill [facility] [address] [place] [phone] NameJamie MD 12/07/2024 9:45 AM EDT Office Visit [facility] [address] [place] [phone] NameaJmie MD Scoliosis of lumbosacral spine, unspecified scoliosis type (Primary Dx); Back pain, unspecified back location, unspecified back pain laterality, unspecified chronicity; Essential hypertension; History of pneumonia; Decreased hearing of both ears; Hearing aid worn 12/07/2024 Travel 11/24/2024 Telephone [facility] [address] [place] [phone] Jamie Garcia MD Med Refill (pt requesting refills on all of his medications. /Explains he went to the pharmacy yesterday and their were no orders put in. ) 11/23/2024 3:15 PM EDT Office Visit [address] [address] Nicolas Boss CNP Pneumonia due to infectious organism, unspecified laterality, unspecified part of lung (Primary Dx); Hydrocele, bilateral 11/23/2024 Travel 11/22/[address] [address] Librado Cerna [place] CHARTPREP 11/22/[address] [address] Jamie Garcia MD 11/21/[address] [address] Jamie Garcia MD Med Refill (Pt requesting refill on Cefuroxime , also pt requesting refills on all medications that need refills. ) 11/14/2024 Orders Only [facility] External Provider, [facility] 10/26/2024 11:00 AM EDT Office Visit [facility] [address] [place] [address] Rory Lopez, ZA Partial edentulism, unspecified edentulism class (Primary Dx) 10/13/2024 10:20 AM EDT Office Visit [facility] [address] [place] [phone] Ani Yost DO Fever and chills (Primary Dx); Essential hypertension 10/13/2024 Orders Only [facility] [address] [address] Ani Yost DO from Last 3 Months Immunizations Immunization Administration Dates Next Due Influenza, High Dose [...] Sign Reading Time Taken Comments Blood Pressure 140/75 12/07/2024 10:23 AM EDT Pulse 78 12/07/2024 10:02 AM EDT Temperature 36 C (96.8 F) 12/07/2024 10:02 AM EDT Respiratory Rate 12 12/07/2024 10:02 AM EDT Oxygen Saturation 95% 12/07/2024 10:02 AM EDT Inhaled Oxygen Concentration - - Weight 41.1 kg (90 lb 9.6 oz) 12/07/2024 10:02 A M EDT Height 127 cm (4' 2 ) 12/07/2024 10:02 AM EDT Body Mass Index 25.48 12/07/2024 10:02 AM EDT Plan of Treatment Upcoming Encounters Date Type Department Care Team (Late st Contact Info) Description 03/02/2025 10:30 AM EDT Office Visit [facility] [address] [place] [address] Name, MD Jamie [address] [place] [address] Health Maintenance Due Date Last Done Comments CT Colonography 1950 Dental X-Ray: Full Mouth 1950 FIT DNA/Cologuard 1950 FIT 1950 FOBT 1950 Sigmoidoscopy 1950 Hepatitis C Screening 1968 Zoster Vaccines (1 of 2) 2000 RSV Patients and Patients Aged 60 years or older (1 - Risk 60-74 years 1-dose series) 2010 Dental Prophylaxis 11/19/2024 08/19/2024, 0 12/06/2018, 11/02/2017, Additional history exists COVID-19 Vaccine ( season) 2025 06/14/2021, 05/24/2021 Influenza Vaccine (#1) 2025 02/17/2018 Dental Oral Exam 02/19/2025 08/19/2024, , 08/24/2018, Additional history exists Alcohol/Substance Use Screening 07/08/2025 07/08/2024 Depression Screening 07/08/2025 07/08/2024, 07/09/19 SDOH Screening 07/08/2025 07/08/2024 Dental X-Ray: Bitewings 08/20/2025 08/20/19 25, 04/21/2019, 08/24/2018, Additional history exists Tobacco Screening 12/07/2025 12/07/2024 DTaP/Tdap/Td Vaccines (2 - Td or Tdap) [...] patient's age to complete this topic Meningococcal B Vaccine Aged Out No l onger eligible based on patient's age to complete [...] Procedure Name Priority Date/Time Associated Diagnosis Comments B TYPE NATRIURETIC PEPTIDE (BNP) Routine 11/14/2024 6:34 PM EDT HIGH SENSITIVITY TROPONIN I Routine 11/14/2024 6:34 PM EDT LIPASE Routine 11/14/2024 6:34 PM EDT MAGNESIUM Routine 11/14/2024 6:34 PM EDT COMPREHENSIVE METABOLIC PANEL Routine 11/14/2024 6:34 PM EDT CBC WITH AUTO DIFFERENTIAL Routine 11/14/2024 6:34 PM EDT SARS COV2/INFLUENZA A/B AND RSV RNA QL NAAT Routine 11/14/2024 6:34 PM EDT XR CHEST 2 VIEWS Routine 11/14/2024 6:30 PM EDT NO CHARGE PROCEDURE Routine 10/26/2024 1 1:00 AM EDT Partial edentulism, unspecified edentulism class XR CHEST 2 VIEWS STAT 10/13/2024 12:0 9 PM EDT Fever and chills CULTURE, URINE, ROUTINE Routine 10/13/2024 11:07 AM EDT Fever and chills POCT URINALYSIS DIPSTICK Routine 10/13/2024 11:06 AM EDT Fever and chills POCT INFLUENZA B (ID NOW RAPID MOLECULAR) Routine 10/13/2024 10:35 AM EDT Fever and chills POCT INFLUENZA A (ID NOW RAPID MOLECULAR) Routine 10/13/2024 10:35 AM EDT Fever and chills POCT RAPID COVID ANTIGEN Routine 10/13/2024 10:35 AM EDT Fever and chills PROPHYLAXIS - ADULT Routine 08/19/2024 1 :00 PM EDT Periodontal disease Partial edentulism, unspecified edentulism class BITEWINGS - 4 RADIOGRAPHIC IMAGES Routine 08/19/2024 1:00 PM EDT Periodontal disease Partial edentulism, unspecified edentulism class PERIODIC ORAL EVALUATION - ESTABLISHED PATIENT Routine 08/19/2024 1:00 PM EDT Periodontal disease Partial edentulism, unspecified edentulism class LIPID PANEL, STANDARD Routine 04/11/2022 9:26 AM EST Essential hypertension HM COLONOSCOPY Routine 11/17/2016 12:06 PM EDT from Last 3 Months or Most Recently Relevant to Health Maintenance Results * High Sensitivity Troponin I (11/14/2024 6:34 PM EDT) Pathologist [facility] TROPONIN I HIGH SENSITIVITY 4.5 <3.5 - 35.0 ng/L [facility] Comment:The [place] high sens itivity Troponin-I results should beused in conjunction with other diagnostic information suchas ECG, clinical observations and information, and patientsymptoms to aid in the diagnosis of HI. 11/14/2024 6:34 PM EDT 11/14/2024 6:38 PM EDT Generic External Data Provider LAB BLOOD ORDERAB LES Final Result Performing Organization Address [facility] Co de Phone Number [facility] [address] [place] [phone] * SARS-CoV-2 RNA, Influenza A/B, and RSV RNA, Ql NAAT (11/14/2024 6:34 PM EDT) Influenza A PCR NEGATIVE Negative [facility] Influenza B PCR NEGATIVE Negative [facility] Resp Syncy Virus RNA Qual PCR NEGATIVE Negative [facility] SARS COV2 PCR NEGATIVE Negative [facility] Comment:All test results mus t [...] use by authorized laboratories.Testing performed on the iFollo GeneXpert utilizingreal-time RT-PCR.All SARS CoV2 and positive influenza A/B results arereported to [facility]. 11/14/2024 6:34 PM EDT 11/14/2024 6:38 PM EDT us Generic External Data Provider LAB MICROBIOLOGY - GENERAL ORDERABLES Final Result Performing Organization Address [facility] Co de Phone Number [facility] [address] [place] [phone] * (ABNORMAL) CBC auto differential (11/14/2024 6:34 PM EDT) White Blood Count 5.3 4.8 - 10.8 X10*3/uL [facility] Red Blood Count 4.68 4.60 - 5.80 X10*6/uL [facility] Hemoglobin 15.1 14.0 - 18.0 g/dl [facility] Hematocrit 43.9 42.0 - 52.0 % [facility] Mean Corpuscular Volume 93.8 80.0 - 98.0 fL [facility] Mean Corpuscular Hemoglobin 32.3 27.0 - 33.0 pg [facility] Mean Corpuscular HGB Conc 34.4 31.0 - 36.0 g/dl [facility] Red Cell Distribution Width 12.4 11.0 - 16.0 % [facility] Platelet Count 161 160 - 400 X10*3/uL [facility] Mean Platelet Volume 9.2(L) 9.4 - 12.4 fL [facility] Neutrophils Percent Auto 67.2 45 - 73 % [facility] Imm Gran Pct Auto 0.4 0.0 - 0.4 % [facility] Lymphocytes Percent Auto 24.8 20 - 40 % [facility] Monocytes Percent Auto 6.6 2 - 11 % [facility] Eosinophils Percent Auto 0.8 0 - 4 % [facility] Basophils Percent Auto 0.2 0 - 2 % [facility] NRBC Pct Auto 0.0 0.0 - 0.2 /100WBC [facility] Neutrophils Absolute Auto 3.6 2.0 - 8.3 x10*3/uL [facility] Imm Gran Abs Auto 0.02 0.00 - 0.03 X10*3/uL [facility] Lymphocytes Absolute Auto 1.3 1.2 - 4.9 X10*3/uL [facility] Monocytes Absolute Auto 0.4 0.1 - 1.2 X10*3/uL [facility] Eosinophils Absolute Auto 0.0 0.0 - 0.4 X10*3/uL [facility] Basophils Absolute Auto 0.0 0.0 - 0.2 X10*3/uL [facility] NRBC Abs Auto 0.000 0.0 - 0.012 X10*3/uL [facility] 11/14/2024 6:34 PM EDT 11/14/2024 6:38 PM EDT Generic External Data Provider LAB BLOOD ORDERAB LES Final Result Performing Organization Address City/[facility]/ZIP Co de Phone Number [facility] [address] [place] [phone] * B Type Natriuretic Peptide (BNP) (11/14/2024 6:34 PM EDT) B Type Natriuretic Peptide 49 <100 pg/mL [facility] 11/14/2024 6:34 PM EDT 11/14/2024 8:59 PM EDT Generic External Data Provider LAB BLOOD ORDERAB LES Final Result Performing Organization Address [facility]/ZIP Co de Phone Number [facility] [address] [place] [phone] * Magnesium (11/14/2024 6:34 PM EDT) Magnesium 2.1 1.6 - 2.6 mg/dL [facility] 11/14/2024 6:34 PM EDT 11/14/2024 6:38 PM EDT Generic External Data Provider LAB BLOOD ORDERAB LES Final Result Performing Organization Address [facility] Co de Phone Number [facility] [address] [place] [phone] * Lipase (11/14/2024 6:34 PM EDT) Lipase 47 8 - 78 U/L [facility] 11/14/2024 6:34 PM EDT 11/14/2024 6:38 PM EDT us Generic External Data Provider LAB BLOOD ORDERAB LES Final Result [facility] [address] [place] [phone] * (ABNORMAL) Comprehensive Metabolic Panel (11/14/2024 6:34 PM EDT) Sodium 135 135 - 145 mmol/L [facility] Potassium 4.6 3.3 - 5.1 mmol/L [facility] Chloride 98 96 - 108 mmol/L [facility] Carbon Dioxide 31(H) 22 - 29 mmol/L [facility] Anion Gap 11(L) 12 - 20 [facility] Urea Nitrogen (BUN) 16 9 - 16 mg/dL [facility] Creatinine, Serum 0.80 0.5 - 1.4 mg/dL [facility] Creatinine Clr Calc Pharmacy 36.2 [facility] Comment:eGFR (calculated fro m the MDRD study equation) and eCrCl(calculated from the Cockcroft-Gault equation) are based ondifferent parameters and may not yield comparable results.If eCrCl result is absurd, please check patient'sheight/weight. Estimated Glomerular Filt Rate >60 [facility] Comment:Chronic Kidney Disea se: Estimated GFR < 60 mL/min/1.88d1Qrnmhf Kidney Disease: Estimated GFR < 15 mL/min/1.73m2 Glucose 109 60 - 115 mg/dL [facility] Calcium 9.4 8.4 - 10.2 mg/dL [facility] Bilirubin, Total 0.5 0.0 - 1.0 mg/dL [facility] Aspartate Amino Transferase 21 5 - 37 U/L [facility] Alanine Aminotransferase 12 0 - 40 U/L [facility] Total Protein 7.2 6.5 - 8.0 g/dL [facility] Albumin Level 4.5 3.5 - 5.0 g/dL [facility] Alkaline Phosphatase 94 39 - 117 U/L [facility] 11/14/2024 6:34 PM EDT 11/14/2024 6:38 PM EDT us Generic External Data Provider LAB BLOOD ORDERAB LES Final Result Performing Organization Address City/State/[facility] Co de Phone Number [facility] [address] [place] [phone] * XR Chest 2 Views (11/14/2024 6:30 PM EDT) Only the most recent of2 resultswithin the time period is included. Anatomical Region Laterality Modality Chest Radiographic Iliana ging 11/14/2024 6:30 PM EDT Narrative 11/14/2024 6:31 PM EDT [address] [address] XRay Report Signed Patient: Ifeanyi White MR#: [id number] : 1950 Acct:[id number] Age/Sex: 74 / M ADM Date: 11/14/24 Loc: HO.ED Attending Dr: Ordering Physician: Latoya Pond Date of Service: 11/14/24 Procedure(s): XR chest 2V Accession Number(s): [id number] cc: Jamie Garcia MD; Latoya Pond CLINICAL HISTORY: short of breath Two views of the chest. COMPARISON: XR chest dated 10/13/24 at 13:09 EDT FINDINGS: Technically limited study secondary to patient's marked scoliosis. Borderline cardiomegaly. Low lung volumes. Consolidation along the left hemidiaphragm and retrocardiac region. No definite pleural effusion. No pneumothorax. Severe scoliosis. Osteopenia. No acute fracture. IMPRESSION: 1. Consolidation along the left hemidiaphragm and retrocardiac region suggestive of atelectasis versus pneumonia. 2. Severe scoliosis. This document has been electronically signed by: Suleiman Hunter MD on 11/14/2024 18:30:37 Dictated By: Suleiman Hunter MD Signed By: <Electronically signed by Suleiman Hunter MD in OV> 11/14/241 DD/ 29 TD/TT: 11/14/241829 Data Center Engineer: Procedure Note Donotuseinterpreter, Image - 11/14/[address] [address] XRay Report Signed Patient: Ifeanyi White AMR#: [id number] : 1950cct:[id number] Age/Sex: 74 / MADM Date: 11/14/24 Loc: HO.ED Attending Dr: Ordering Physician: Latoya Pond Date of Service: 11/14/24 Procedure(s): XR chest 2V Accession Number(s): [id number] cc: Jose,Jamie DURHAM; Latoya Pond CLINICAL HISTORY: short of breath Two views of the chest. COMPARISON: XR chest dated 10/13/24 at 13:09 EDT FINDINGS: Technically limited study secondary to patient's marked scoliosis. Borderline cardiomegaly. Low lung volumes. Consolidation along the left hemidiaphragm and retrocardiac region. No definite pleural effusion. No pneumothorax. Severe scoliosis. Osteopenia. No acute fracture. IMPRESSION: 1. Consolidation along the left hemidiaphragm and retrocardiac region suggestive of atelectasis versus pneumonia. 2. Severe scoliosis. This document has been electronically signed by: Suleiman Hunter MD on 11/14/2024 18:30:37 Dictated By: Suleiman Hunter MD Signed By: <Electronically signed by Suleiman Hunter MD in OV> 11/14/241830 DD/ 29 TD/TT: 11/14/241829 Data Center Engineer: [facility] External Provider IMG XR PROCEDURES Final Result * Culture, Urine, Routine (10/13/2024 11:07 AM EDT) Urine Urine specimen obtained by clean catch procedure / Unknown 10/13/2024 11:07 AM EDT 10/13/2024 4:30 PM EDT Comment:UACC Narrative [facility] - 10/15/2024 11:15 AM EDT Urine Culture No growth. Specimen Source: Urine clean catch Ani Yost DO LAB MICROBIOLOGY - GENERAL O RDERABLES Final Result Performing Organization Address [facility] Co de Phone Number [facility] [address] [place] [phone] * (ABNORMAL) POCT urinalysis dipstick manually resulted (10/13/2024 11:06 AM EDT) Color, UA Yellow Clarity, UA Clear Glucose, [...] NOW Rapid Molecular) (10/13/2024 10:35 AM EDT) [facility] Influenza B Negative Negative, Indeterminate [facility] Swab 10/13/2024 10:3 5 AM EDT Ani Yost DO POINT OF CARE TEST ENTER/TAYLOR T ORDERABLES Final Result Performing Organization Address [facility] Co de Phone Number [facility] [address] [place] [phone] * Influenza A (ID NOW Rapid Molecular) (10/13/2024 10:35 AM EDT) [facility] Influenza A Negative Negative, Indeterminate [facility] Swab 10/13/2024 10:3 5 AM EDT Ani Yost DO POINT OF CARE TEST ENTER/TAYLOR T ORDERABLES Final Result [facility] [address] [place] [phone] * POCT Rapid COVID Ag (10/13/2024 10:35 AM EDT) Rapid COVID Ag Negative [facility] Swab 10/13/2024 10:3 5 AM EDT Ani Marshallgiselle DO POINT OF CARE TEST ENTER/TAYLOR T ORDERABLES Final Result Performing Organization Address [facility] Co de Phone Number [facility] [address] [place] [phone] * Lipid Panel, Standard (04/11/2022 9:26 AM EST) Cholesterol, Total 149 <200 mg/dL [facility] HDL Cholesterol 86 > OR = 40 mg/dL [facility]ia [place] [employer] Triglycerides 54 <150 mg/dL [facility] LDL Cholesterol 50 mg/dL (calc) [facility] Comment: Reference range: <100 Desirable range <100 mg/dL for primary prevention; <70 mg/dL for patients with CHD or diabetic patients with > or = 2 CHD risk factors. LDL-C is now calculated using the Fredy-Ann Marie calculation, which is a validated novel method providing better accuracy than the Friedewald equation in the estimation of LDL-C. Fredy SALAMANCA et al. JEAN. 2013;310(19): 8255-1916 (http://education.[employer]/faq/VYL046) Chol/HDLC Ratio 1.7 <5.0 (calc) [facility] Non-HDL Cholesterol 63 <130 mg/dL (calc) [facility] Comment: For patients with diabetes plus 1 major ASCVD risk factor, treating to a non-HDL-C goal of <100 mg/dL (LDL-C of <70 mg/dL) is considered a therapeutic option. Blood Venous blood specimen / Unknown 04/11/2022 9:26 AM EST 04/11/2022 9:26 AM EST Narrative [facility] - 04/11/2022 9:46 PM EST FASTING:YES FASTING: YES Jamie Jose DURHAM LAB BLOOD ORDERABLES Final Resul t [facility] [address], [place] [address] Ludia McLean [facility] [address], [place] [address] * Colonoscopy (11/17/2016 12:06 PM EDT) Colonoscopy Normal Normal Narrative Maria Esther Zhao - 11/17/2016 12:06 PM EDT Recommended 10 years follow up Historical Provider HEALTH MAINTENANCE Final Result from Last 3 Months or Most Recently Relevant to Health Maintenance Insurance [facility] SKILLED NURSING OPTIONS (HMO D-SNP) DENTAL - [facility] Care Teams Flag Signalman Relationship Specialty Start Date End Date Name, MD Jamie [address] [place] [phone] PCP - General Family Medicine 10/29/15 Lia SOFIA 07/02/24
--- OUTSIDE RECORDS SUMMARY | 2025-01-12 10:58 | XMS_ITS | Encounter Summary ---
Author Organization [employer] Address [address] [place] [address] Care Team Providers Care Photographer Apprentice Lithographic Name Role Phone Name, Jamie DURHAM Primary Care Provider [phone] Reason for Visit * Reason Comments Med Refill Encounter Details Date Type Department Care Team ([facility] st Contact Info) Description 10/12/2023 Refill [facility] [address], [place] [phone] Name, MD Jamie [address] [place], [place] [phone] Social History Tobacco Use Types Packs/Day Years [...] Description 03/02/2025 10:30 AM EDT Office Visit [facility] [address] [place] [phone] Name, MD Jamie [address] [place] [phone] documented as of this encounter Visit Diagnoses Not on filedocumented in this encounter Additional Health Concerns Assessment Noted Time PHQ-9 Depression Total Score: 0 07/02/19 24 10:12 AM EST documented as of this encounter Care Teams Photographer Apprentice Lithographic Relationship Specialty Start Date End Date Name, MD Jamie [address] [place] [phone] PCP - General Family Medicine 10/29/15 Lia Gustavo 07/02/24 documented as of this encounter
[2025-01-12 11:49] LABS: Anion Gap 14 (12-20); Blood Urea Nitrogen 15 mg/dL (9-16); Calcium 9.6 mg/dL (8.4-10.2); Carbon Dioxide 31 mmol/L (22-29); Chloride 99 mmol/L (96-108); Estimated Glomerular Filt Rate > 60; Potassium 4.0 mmol/L (3.3-5.1); Sodium 140 mmol/L (135-145)
[2025-01-12 11:57] LABS: PSA,Total (Free>4and<10) 8.19 ng/mL (0.00-4.00)
[2025-01-14 06:24] LABS: Free Prostate Spec Ag 1.7 ng/mL; Percent Free Prostate Spec Ag 21 % (calc) (>25)
== END 2025-01-12 09:28 | disposition home or self-care (01) ==
LOC: HO.LAB 09:27
PROVIDERS: Nurse Practitioner; PCP Internal Medicine Geriatric Medicine; Visit Provider Urology
DX: Z12.5 Encounter for screening for malignant neoplasm of prostate (principal); R97.20 Elevated prostate specific antigen [PSA]; Z79.899 Other long term (current) drug therapy
CPT/HCPCS: 36415; 80048; 84153; 84154

== ENCOUNTER 2025-01-23 09:20 | Outpatient (AMB) | payer OTHER, SELFPAY ==
--- NOTE | 2025-01-23 10:00 | A.OFFVIS_ITS ---
Intake Visit Reasons: 3M/PSA Intake Note: Patient is present for 3m/PSA * 01/12 Total PSA: 8.19 * Free PSA: 1.7 Urology Medication: Finesteride, TAMSULOSIN Antibiotic Allergy:NONE Blood Thinner:NONE Hearing Impaired Itinerant Teacher Required: Yes Hearing Impaired Itinerant Teacher Name: Yuli Information Interpreted: non-clinical & clinical Allergies No Known Allergies Allergy (Verified 01/23/25 10:00) Medication List - Last Reconciled 01/23/25 by Rhonda Castañeda MD atorvastatin 20 mg PO DAILY [id number] 0.5-1-0.5 % (Refresh Optive Advanced) 1 drp ophthalmic-Left BEDTIME cefpodoxime 200 mg PO BID doxycycline hyclate 100 mg PO BID finasteride 5 mg PO DAILY 30 days furosemide (Lasix) 20 mg PO DAILY gabapentin 300 mg PO DAILY latanoprost 0.005% 1 drp ophthalmic-Left QPM losartan 25 mg PO DAILY naproxen 500 mg PO BID PRN tamsulosin 0.8 mg (2 x 0.4 mg) PO DAILY timolol maleate 0.5% 1 drp ophthalmic-Left DAILY HPI Comments Details: 01/23/25--Ifeanyi is a 74-year-old male who is here for follow-up. Being monitored for elevated PSA, BPH symptoms, lower urinary tract symptoms of urgency and slowing of urinary stream. The patient also has bilateral hydroceles that are asymptomatic. Follow-up PSA 01/12/2025 is 8.19. The patient is on finasteride and tamsulosin. Urinalysis today 1+ blood 1+ protein leukocytes negative. History of Present Illness The patient is a 74-year-old male presenting with elevated PSA levels and BPH symptoms. The patient has been experiencing urinary tract symptoms, including urgency and a slowing urinary stream, which are indicative of BPH. He is currently on finasteride and tamsulosin to manage these symptoms. Diuretic therapy. ComorbitiyPt states he is no longer using the vesicare. The patient's PSA level was recorded at 8.19 on 01/12/25, and he is being monitored for any further changes. A prostate biopsy was previously considered but postponed due to a decrease in PSA levels. The patient also has bilateral hydroceles, which are currently asymptomatic and do not require intervention at this time. Results - PSA level on 01/12/25: 8.19 - Urinalysis: 1+ blood, 1+ protein, leukocytes negative Plan 1. Elevated Prostate-Specific Antigen (Psa) - Plan to schedule a prostate biopsy to rule out malignancy. - Continue monitoring PSA levels. 2. Benign Prostatic Hyperplasia (Bph) - Continue current medications: finasteride and tamsulosin. - Monitor urinary symptoms and adjust treatment as necessary. 3. Bilateral Hydroceles - No intervention required at this time as they are asymptomatic. 4. Microscopic Hematuria- repeat cystoscopy, Out patient, at time of prostate bx. 10/05/24-- FU BPH, elevated PSA, OAB. LV--08/12/24--Ifeanyi is here for follow- up. He is on VESIcare and Vistaril for urinary symptoms of urgency frequency. He has been on tamsulosin b.i.d. for BPH symptoms. Bilateral hydrocele left greater than right is not symptomatic. PSA was elevated to 9.0, pt was treated for UTI. Repeat PSA--09/12/24-- PSA:5.63. 03/21/24-- 6 month FU--Ifeanyi is a 73 y/o here for follow-up. He was seen last on 07/16/2023 he was started on VESIcare and for urinary symptoms of urgency frequency. He has been on tamsulosin b.i.d. for BPH symptoms. Bilateral hydrocele left greater than right is not symptomatic. no recent PSA since 2019 09/17/2023--Ifeanyi is here for follow-up. He was seen last on 07/16/2023 he was started on VESIcare and Vistaril for urinary symptoms of urgency frequency. He has been on tamsulosin b.i.d. for BPH symptoms. Bilateral hydrocele left greater than right is not symptomatic. He was evaluated for microscopic hematuria CT urogram was within normal limits urine cytology sent May 2022 had atypical cells. The patient states his PCP discontinued the Vistaril as he is on gabapentin and combination of these meds have a high trans of drowsiness. Bladder scan PVR is 46 mL. He is tolerating VESIcare 5 mg and will continue tamsulosin. Repeat urine cytology. 07/16/23--Ifeanyi is a [place]an-speaking male who who presents for office cystoscopy, he was last seen on 06/03/2023 with complaints of right inguinal pain. On examination he has bilateral hydrocele left greater than right. He was referred to General surgery due to right inguinal pain for further evaluation. He denies scrotal pain. He complains of urgency and frequency with nocturia 5-6 times. He was noted on evaluation to have an microscopic hematuria He previously had an MRI noting a hyperdense renal cyst, he was sent for CT urogram. Urine cytology sent on 06/03/[address] came [address] urogram no suspicious kidney lesions noted. Office cystoscopy findings--minimal petechiae changes noted, moderate trabeculations. No suspicious bladder lesions. [facility] Medical History Hydrocele, bilateral Renal mass of unknown nature Pectus carinatum BPH (benign prostatic hyperplasia) Urinary retention Surgical History Hx of cystoscopy History of surgery on lower extremity H/O inguinal hernia repair Social History Household Members: Spouse Housing: Apartment Do you presently have visiting nurse or other home services: No Alcohol intake: never Comment: reinforced on bed alarm Patient Tobacco Use Status: Never used Tobacco e-Cigarette/Vaping Use: Never Used Advance Directives Date on File: 07/08/23 service: No Review of Systems Const All systems reviewed & are unremarkable except as noted in HPI and below Reports no additional complaints Eyes Reports no additional complaints ENT Reports no additional complaints Card Reports no additional complaints Resp Reports no additional complaints GI Reports no additional complaints Reports as per HPI Musc Reports no additional complaints Skin/Breast Reports system reviewed and no additional complaints, except as documented Neuro Reports no additional complaints Psych Reports no additional complaints Endo Reports no additional complaints Kingsley/Lymph Reports no additional complaints Aller/Immun Reports no additional complaints Assessment & Plan Assessment & Plan (1) Elevated PSA: Code(s): R97.20 - Elevated prostate specific antigen [PSA] Category: Medical (2) Hydrocele, bilateral: Code(s): N43.3 - Hydrocele, unspecified Category: Medical (3) BPH loc w urin obs/LUTS: Code(s): N40.1 - Benign prostatic hyperplasia with lower urinary tract symptoms Category: Medical (4) Bladder wall thickening: Code(s): N32.89 - Other specified disorders of bladder Category: Medical (5) Urinary frequency: Code(s): R35.0 - Frequency of micturition Category: Medical Plan Plan 1. Elevated Prostate-Specific Antigen (Psa) - Plan to schedule a prostate biopsy to rule out malignancy. - Continue monitoring PSA levels. 2. Benign Prostatic Hyperplasia (Bph) - Continue current medications: finasteride and tamsulosin. - Monitor urinary symptoms and adjust treatment as necessary. 3. Bilateral Hydroceles - No intervention required at this time as they are asymptomatic. 4. Microscopic Hematuria- repeat cystoscopy, Out patient, at time of prostate bx. Medications: Refilled tamsulosin 0.8 mg (2 x 0.4 mg) PO DAILY 180 caps 3RF finasteride 5 mg PO DAILY 30 tabs 4RF 30 days Patient Instructions: The patient had an opportunity to ask questions regarding treatment plan. The patient expressed understanding and agreement with the above treatment plan. The patient is aware they should contact our office by phone for worsening of their current condition or the appearance of new symptoms. Compliance is encouraged with any medications and followup testing that is ordered. It is a privilege to be allowed the opportunity to participate in the urologic care of your patient. If you have any questions or concerns regarding treatment for the above conditions please do not hesitate to contact me. The office telephone contact is [phone]. This note is constructed in part using voice recognition software. While every effort has been made to ensure accuracy envelope sealer operator errors may have been included. Yours sincerely, Rhonda Castañeda MD Scribe Plan - Not visible on output: Patient was informed and verbally consented to the use of an ambient scribe for clinic note documentation during this visit. Coding Level of Care Code Est Pt Level 4 (77226) Complex EM visit Add On G2211 Diagnoses Elevated PSA R97.20 Hydrocele, bilateral N43.3 BPH loc w urin obs/LUTS N40.1 Bladder wall thickening N32.89 Urinary frequency R35.0
--- OUTSIDE RECORDS SUMMARY | 2025-01-23 10:57 | XMS_ITS | Encounter Summary ---
Author Organization [employer] Address [address] [place] [address] Care Team Providers Care Consumer Affairs Manager Name Role Phone Name, Jamie DURHAM Primary Care Provider [phone] Reason for Visit * Reason Onset Date Comments Hospital Follow-up 07/04/2024 Encounter Details Date Type Department Care Team ([facility] st Contact Info) Description 07/04/2024 Telephone [facility] [address] [place], [place] [phone] Name, MD Jamie [address] [place] [address] Hospital Follow-up Social History Tobacco Use Types [...] from pt requesting a HDF appt. Hospital: [facility] Date of admission: 06/28 Discharge date: 06/30 Diagnosed: pneumonia, flu *Send message to [facility] Coordinators [phone] palauan documented in this encounter Plan of Treatment Upcoming Encounters Date Type Department Care Team (Late st Contact Info) Description 03/02/2025 10:30 AM EDT Office Visit [facility] [address] [place] [id number] Name, MD Jamie [address] [place] [phone] documented as of this encounter Visit Diagnoses Not on filedocumented in this encounter Additional Health Concerns Assessment Noted Time PHQ-9 Depression Total Score: 0 07/02/19 24 10:12 AM EST documented as of this encounter Care Teams Consumer Affairs Manager Relationship Specialty Start Date End Date NameJamie MD [address] [place] [id number] PCP - General Family Medicine 10/29/15 [facility] 07/02/24 documented as of this encounter
--- OUTSIDE RECORDS SUMMARY | 2025-01-23 10:57 | XMS_ITS | Clinical Summary ---
Author Organization [employer] Address [address] [place] [address] 7t [place] [address] Care Team Providers Care Caster Operator Name Role Phone Name, Jamie DURHAM Primary Care Provider [phone] Allergies Active Allergy Reactions Criticality Noted Date [...] Blood work normal including screening for subclinical [place] and 24 urine metanephrines. His MRI was [...] stone 10/09/2017 Overview (09/15/2023): He follows with [facility] Has renal stones BPH Benign non [...] Overview (03/13/2023): One episode uncomplicated at [facility] 09/2016 Normal colonoscopy the same year Repeat colonoscopy recommended in 10 years Cervical radiculitis 03/18/2012 024 Cervical spinal stenosis 03/18/2012 Neck pain 03/18/2012 03/13/2023 Low back pain 09/24/2009 07/02/2023 Scoliosis 09/24/2009 08/19/2024 Groin pain 09/24/2009 03/13/2023 Neuropathic pain syndrome (non-herpetic) 09/24/2009 03/13/2023 Encounters Date Type Department Care Team Description 01/20/2025 Results Follow-Up [facility] [place] [id number] Macy Amador NP Basic Metabolic Panel 01/12/2025 Orders Only [facility] [place] [address] Macy Amador NP 12/26/2024 Refill [facility] [place] [address] NameJamie MD 12/07/2024 9:45 AM EDT Office Visit [facility] [place] [address] Name, MD Jamie Scoliosis of lumbosacral spine, unspecified scoliosis type (Primary Dx); Back pain, unspecified back location, unspecified back pain laterality, unspecified chronicity; Essential hypertension; History of pneumonia; Decreased hearing of both ears; Hearing aid worn 12/07/2024 Travel 11/24/[address] [address] Jamie Garcia MD Med Refill (pt requesting refills on all of his medications. /Explains he went to the pharmacy yesterday and their were no orders put in. ) 11/23/2024 3:15 PM EDT Office Visit [address] [address] Nicolas Boss CNP Pneumonia due to infectious organism, unspecified laterality, unspecified part of lung (Primary Dx); Hydrocele, bilateral 11/23/2024 Travel 11/22/[address] [phone] Librado Cerna [place] CHARTPREP 11/22/[address] [phone] Jamie Garcia MD 11/21/[address] [phone] Jamie Garcia MD Med Refill (Pt requesting refill on Cefuroxime , also pt requesting refills on all medications that need refills. ) 11/14/2024 Orders Only [facility] External Provider, [facility] 10/26/2024 11:00 AM EDT Office Visit [facility] [address] [place] [address] Rory Lopez, DMD Partial edentulism, unspecified edentulism class (Primary Dx) from Last 3 Months Immunizations Immunization Administration Dates Next Due Influenza, High Dose Seasonal, Preservative Free 02/17/2018 Pfizer Covid-19 Vaccine 12+ 06/14/2021, 2 Pneumococcal Conjugate PCV 13 02/05/2016 Pneumococcal Polysaccharide [...] Description 03/02/2025 10:30 AM EDT Office Visit [facility] [address] [place] [address] Name, MD Jamie [address] [place] [address] Health Maintenance Due Date Last Done Comments [...] Screening 07/08/2025 07/08/2024 Dental X-Ray: [facility] 08/20/2025 08/20/19, 04/21/2019, 08/24/2018, Additional history exists Tobacco Screening [...] Procedure Name Priority Date/Time Associated Diagnosis Comments PSA, FREE AND TOTAL Routine 01/12/2025 1 1:57 AM EDT PSA, TOTAL WITH REFLEX TO PSA, FREE Routine 01/12/2025 9:41 AM EDT BASIC METABOLIC PANEL Routine 01/12/2025 9:41 AM EDT B TYPE NATRIURETIC PEPTIDE (BNP) Routine 11/14/2024 [...] AM EDT Partial edentulism, unspecified edentulism class PROPHYLAXIS - ADULT Routine 08/19/2024 1 :00 [...] Relevant to Health Maintenance Results * (ABNORMAL) PSA, Free and Total (01/12/2025 11:57 AM EDT) PSA, Total 8.1(A) < OR = 4.0 ng/mL [facility] PSA % Free 21(A) >25 % (calc) [facility] Comment: PSA(ng/mL) Free PSA(%) Estimated(x) Probability of Cancer(as%)0-2.5 (*) Approx. 12.6-4.0(1) 0-27(2) 24(3)4.1-10(4) 0-10 56 11-15 28 16-20 20 21-25 16 >or =26 8>10(+) N/A >50References:(1)Chantel et al.:Urology 60: 469-474 (2002) (2)Chantel et al.:J.Urol 168: 922-925 (2002) Free PSA(%) Sensitivity(%) Specificity(%) < or = 25 85 19 < or = 30 93 9 (3)Catalona et al.:JEAN 277: 1835-2130 (1996) (4)Catalona et al.:JEAN 279: 5451-2442 (1997)(x)These estimates vary with age, ethnicity, family history and BURKE results.(*)The diagnostic usefulness of % Free PSA has not been established in patients with total PSA below 2.6 ng/mL(+)In men with PSA above 10 ng/mL, prostate cancer risk is determined by total PSA alone.The Total PSA value from this assay system isstandardized against the equimolar PSA standard.The test result will be approximately 20% higherwhen compared to the WHO-standardized Total PSA(Siemens assay). Comparison of serial PSA resultsshould be interpreted with this fact in mind.PSA was performed using the Karen CoulterImmunoassay method. Values obtained from differentassay methods cannot be used interchangeably. PSAlevels, regardless of value, should not be interpretedas absolute evidence of the presence or absence ofdisease.THIS TEST WAS PERFORMED AT:[email or web address] [place] [phone] OSUNA MD PSA, Free 1.7 ng/mL [facility] 01/12/2025 11:5 7 AM EDT 01/12/2025 11:57 AM EDT us Generic External Data Provider LAB BLOOD ORDERAB LES Final Result [facility] [address] [place] [phone] * (ABNORMAL) PSA, Total With Reflex to PSA, Free (01/12/2025 9:41 AM EDT) PSA,Total (Free>4and<10) 8.19(H) 0.00 - 4.00 ng/mL [facility] Comment:PSA methodology: Abb khushi Kennedy i ChemiluminescentMicroparticle Immunoassay (CMIA) 01/12/2025 9:41 AM EDT 01/12/2025 9:41 AM EDT us Generic External Data Provider LAB BLOOD ORDERAB LES Final Result Performing Organization Address [facility] Co de Phone Number [facility] [address] [place] [phone] * (ABNORMAL) Basic Metabolic Panel (01/12/2025 9:41 AM EDT) [facility] Sodium 140 135 - 145 mmol/L [facility] Potassium 4.0 3.3 - 5.1 mmol/L [facility] Chloride 99 96 - 108 mmol/L [facility] Carbon Dioxide 31(H) 22 - 29 mmol/L [facility] Anion Gap 14 12 - 20 [facility] Urea Nitrogen (BUN) 15 9 - 16 mg/dL [facility] Creatinine, Serum 0.65 0.5 - 1.4 mg/dL [facility] Estimated Glomerular Filt Rate >60 [facility] Comment:Chronic Kidney Disea se: Estimated GFR < 60 mL/min/1.44q4Klahmn Kidney Disease: Estimated GFR < 15 mL/min/1.73m2 Glucose 86 60 - 115 mg/dL [facility] Calcium 9.6 8.4 - 10.2 mg/dL [facility] 01/12/2025 9:41 AM EDT 01/12/2025 9:41 AM EDT us Macy Amador SENIOR HEALTH CONSULTANT LAB BLOOD ORDERABLES Final Resu lt Performing Organization Address [facility] Co de Phone Number [facility] [address] [place] [phone] * High Sensitivity Troponin I (11/14/2024 6:34 PM EDT) [facility] TROPONIN I HIGH SENSITIVITY 4.5 <3.5 - 35.0 ng/L [facility] Comment:The Majano high sens itivity Troponin-I results should beused in conjunction with other diagnostic information suchas ECG, clinical observations and information, and patientsymptoms to aid in the diagnosis of [place]. 11/14/2024 6:34 PM EDT 11/14/2024 6:38 PM EDT Generic External Data Provider LAB BLOOD ORDERAB LES Final Result Performing Organization Address [facility]/ZIP Co de Phone Number [facility] [address] [place] [phone] * SARS-CoV-2 RNA, Influenza A/B, and RSV RNA, Ql NAAT (11/14/2024 6:34 PM EDT) Influenza A PCR NEGATIVE Negative [facility] Influenza B PCR NEGATIVE Negative [facility] Resp Syncy Virus RNA Qual PCR NEGATIVE Negative [facility] SARS COV2 PCR NEGATIVE Negative [facility] Comment:All test results mus t [...] use by authorized laboratories.Testing performed on the [facility] GeneXpert utilizingreal-time RT-PCR.All SARS CoV2 and positive influenza A/B results arereported to [facility]. 11/14/2024 6:34 PM EDT 11/14/2024 6:38 PM EDT us Generic External Data Provider LAB MICROBIOLOGY - GENERAL ORDERABLES Final Result Performing Organization Address [facility]/ZIP Co de Phone Number [facility] [address] [place] [phone] * (ABNORMAL) CBC auto differential (11/14/2024 6:34 PM EDT) White Blood Count 5.3 4.8 - 10.8 X10*3/uL [facility] Red Blood Count 4.68 4.60 - 5.80 X10*6/uL [facility] Hemoglobin 15.1 14.0 - 18.0 g/dl [facility] Hematocrit 43.9 42.0 - 52.0 % [facility] Mean Corpuscular Volume 93.8 80.0 - 98.0 fL [facility] Mean Corpuscular Hemoglobin 32.3 27.0 - 33.0 pg [facility] Mean Corpuscular HGB Conc 34.4 31.0 - 36.0 g/dl [facility] Red Cell Distribution Width 12.4 11.0 - 16.0 % [facility] Platelet Count 161 160 - 400 X10*3/uL [facility] Mean Platelet Volume 9.2(L) 9.4 - 12.4 fL [facility] Neutrophils Percent Auto 67.2 45 - 73 % [facility] Imm Gran Pct Auto 0.4 0.0 - 0.4 % [facility] Lymphocytes Percent Auto 24.8 20 - 40 % [facility] Monocytes Percent Auto 6.6 2 - 11 % [facility] Eosinophils Percent Auto 0.8 0 - 4 % [facility] Basophils Percent Auto 0.2 0 - 2 % [facility] NRBC Pct Auto 0.0 0.0 - 0.2 /100WBC [facility] Neutrophils Absolute Auto 3.6 2.0 - 8.3 x10*3/uL [facility] Imm Gran Abs Auto 0.02 0.00 - 0.03 X10*3/uL [facility] Lymphocytes Absolute Auto 1.3 1.2 - 4.9 X10*3/uL [facility] Monocytes Absolute Auto 0.4 0.1 - 1.2 X10*3/uL [facility] Eosinophils Absolute Auto 0.0 0.0 - 0.4 X10*3/uL [facility] Basophils Absolute Auto 0.0 0.0 - 0.2 X10*3/uL [facility] NRBC Abs Auto 0.000 0.0 - 0.012 X10*3/uL [facility] 11/14/2024 6:34 PM EDT 11/14/2024 6:38 PM EDT us Generic External Data Provider LAB BLOOD ORDERAB LES Final Result Performing Organization Address [facility] Co de Phone Number [facility] [address] [place] [phone] * B Type Natriuretic Peptide (BNP) (11/14/2024 6:34 PM EDT) B Type Natriuretic Peptide 49 <100 pg/mL [facility] 11/14/2024 6:34 PM EDT 11/14/2024 8:59 PM EDT Generic External Data Provider LAB BLOOD ORDERAB LES Final Result Performing Organization Address [facility] Co de Phone Number [facility] [address] [place] [phone] * Magnesium (11/14/2024 6:34 PM EDT) Magnesium 2.1 1.6 - 2.6 mg/dL [facility] 11/14/2024 6:34 PM EDT 11/14/2024 6:38 PM EDT us Generic External Data Provider LAB BLOOD ORDERAB LES Final Result Performing Organization Address [facility] Co de Phone Number [facility] [address] [place] [phone] * Lipase (11/14/2024 6:34 PM EDT) Lipase 47 8 - 78 U/L [facility] 11/14/2024 6:34 PM EDT 11/14/2024 6:38 PM EDT us Generic External Data Provider LAB BLOOD ORDERAB LES Final Result [facility] [address] [place] [phone] * (ABNORMAL) Comprehensive Metabolic Panel (11/14/2024 6:34 PM EDT) Sodium 135 135 - 145 mmol/L [facility] Potassium 4.6 3.3 - 5.1 mmol/L [facility] Chloride 98 96 - 108 mmol/L [facility] Carbon Dioxide 31(H) 22 - 29 mmol/L [facility] Anion Gap 11(L) 12 - 20 [facility] Urea Nitrogen (BUN) 16 9 - 16 mg/dL [facility] Creatinine, Serum 0.80 0.5 - 1.4 mg/dL [facility] Creatinine Clr Calc Pharmacy 36.2 [facility] Comment:eGFR (calculated fro m the MDRD study equation) and eCrCl(calculated from the Cockcroft-Gault equation) are based ondifferent parameters and may not yield comparable results.If eCrCl result is absurd, please check patient'sheight/weight. Estimated Glomerular Filt Rate >60 [facility] Comment:Chronic Kidney Disea se: Estimated GFR < 60 mL/min/1.91l5Hdodyz Kidney Disease: Estimated GFR < 15 mL/min/1.73m2 Glucose 109 60 - 115 mg/dL [facility] Calcium 9.4 8.4 - 10.2 mg/dL [facility] Bilirubin, Total 0.5 0.0 - 1.0 mg/dL [facility] Aspartate Amino Transferase 21 5 - 37 U/L [facility] Alanine Aminotransferase 12 0 - 40 U/L [facility] Total Protein 7.2 6.5 - 8.0 g/dL [facility] Albumin Level 4.5 3.5 - 5.0 g/dL [facility] Alkaline Phosphatase 94 39 - 117 U/L [facility] 11/14/2024 6:34 PM EDT 11/14/2024 6:38 PM EDT us Generic External Data Provider LAB BLOOD ORDERAB LES Final Result Performing Organization Address City/State/[facility] Co de Phone Number [facility] [address] [place] [phone] * XR Chest 2 Views (11/14/2024 6:30 PM EDT) Anatomical Region Laterality Modality Chest Radiographic Iliana ging 11/14/2024 6:30 PM EDT Narrative 11/14/2024 6:31 PM EDT [address] [address] XRay Report Signed Patient: Ifeanyi White MR#: [id number] : 1950 Acct:[id number] Age/Sex: 74 / M ADM Date: 11/14/24 Loc: HO.ED Attending Dr: Ordering Physician: Latoya Pond Date of Service: 11/14/24 Procedure(s): XR chest 2V Accession Number(s): [id number] cc: Name,Jamie DURHAM; Latoya Pond CLINICAL HISTORY: short of [...] in OV> 11/14/241830 DD/ 29 TD/TT: 11/14/241829 House Cleaner: Procedure Note Donotuseinterpreter, Image - 11/14/[address] [address] XRay Report Signed Patient: Ifeanyi White [facility]#: [id number] : 1Acct:[id number] Age/Sex: 74 / MADM Date: 11/14/24 Loc: HO.ED Attending Dr: Ordering Physician: Latoya Pond Date of Service: 11/14/24 Procedure(s): XR chest 2V Accession Number(s): [id number] cc: Name,Jamie DURHAM; Latoya Pond CLINICAL HISTORY: short of [...] in OV> 11/14/241830 DD/ 29 TD/TT: 11/14/241829 House Cleaner: [facility] External Provider IMG XR PROCEDURES Final Result * Lipid Panel, Standard (04/11/2022 9:26 AM EST) Cholesterol, Total 149 <200 mg/dL [facility] HDL Cholesterol 86 > OR = 40 mg/dL [facility] Triglycerides 54 <150 mg/dL [facility] LDL Cholesterol 50 mg/dL (calc) [facility] Comment: Reference range: <100 Desirable range <100 mg/dL for primary prevention; <70 mg/dL for patients with CHD or diabetic patients with > or = 2 CHD risk factors. LDL-C is now calculated using the Eliza calculation, which is a validated novel method providing better accuracy than the Friedewald equation in the estimation of LDL-C. Fredy SS et al. JEAN. 2013;310(19): 7657-1043 (http://[employer].VIPerks/faq/TEU702) Chol/HDLC Ratio 1.7 <5.0 (calc) [facility] Non-HDL Cholesterol 63 <130 mg/dL (calc) [facility] Comment: For patients with diabetes plus 1 major ASCVD risk factor, treating to a non-HDL-C goal of <100 mg/dL (LDL-C of <70 mg/dL) is considered a therapeutic option. Blood Venous blood specimen / Unknown 04/11/2022 9:26 AM EST 04/11/2022 9:26 AM EST Narrative [facility] - 04/11/2022 9:46 PM EST FASTING:YES FASTING: YES Jamie Name LAB BLOOD ORDERABLES Final Resul t [facility] [address], [place] [phone] [facility] [address], [place] [address] * Hm Colonoscopy (11/17/2016 12:06 PM EDT) Colonoscopy Normal Normal Narrative Maria Esther Zhao - 11/17/2016 12:06 PM EDT Recommended 10 years follow up Historical Provider HEALTH MAINTENANCE Final Result from Last 3 Months or Most Recently Relevant to Health Maintenance [facility] (HMO D-SNP) DENTAL [facility] Care Teams Caster Operator Relationship Specialty Start Date End Date Name, MD Jamie [address] [place] [phone] PCP - General Family Medicine 10/29/15 [facility] 07/02/24
--- OUTSIDE RECORDS SUMMARY | 2025-01-23 10:57 | XMS_ITS | Encounter Summary ---
Author Organization [employer] Address [address] [facility] 7t [place] [address] Care Team Providers Care Manager Technical Support Name Role Phone Name, Jamie DURHAM Primary Care Provider [phone] Reason for Visit * Reason Comments Med Refill Encounter Details Date Type Department Care Team ([facility] st Contact Info) Description 10/12/2023 Refill [facility] [address] [place], [place] [phone] Name, MD Jamie [address] [place], [place] [phone] Social History Tobacco Use Types Packs/Day Years [...] Description 03/02/2025 10:30 AM EDT Office Visit [facility] [address] [place] [phone] Name, MD Jamie [address] [place] [address] documented as of this encounter Visit Diagnoses Not on filedocumented in this encounter Additional Health Concerns Assessment Noted Time PHQ-9 Depression Total Score: 0 07/02/19 24 10:12 AM EST documented as of this encounter Care Teams Manager Technical Support Relationship Specialty Start Date End Date Name, MD Jamie [address] [place] [phone] PCP - General Family Medicine 10/29/15 [facility] 07/02/24 documented as of this encounter
--- OUTSIDE RECORDS SUMMARY | 2025-01-23 10:57 | XMS_ITS | Encounter Summary ---
Author Organization [employer] Address [address] [facility] 7t [place] [address] Care Team Providers Care Gunstock Repairer Name Role Phone Name, Jamie DURHAM Primary Care Provider [phone] Encounter Details Date Type Department Care Team (Latest Contact Info) Description 08/24/2018 Abstract [facility] CONVERSIONS Dental, Provider, DDS Social History [...] Description 03/02/2025 10:30 AM EDT Office Visit [facility] [address] [place] [phone] NameJamie MD [address] [place] [address] documented as of this encounter Visit Diagnoses Not on filedocumented in this encounter Care Teams Gunstock Repairer Relationship Specialty Start Date End Date Name, MD Jamie [address] [place] [phone] PCP - General Family Medicine 10/29/15 [facility] 07/02/24 documented as of this encounter
--- OUTSIDE RECORDS SUMMARY | 2025-01-23 10:57 | XMS_ITS | Encounter Summary ---
Author Organization [employer] Address [address] [place] [address] 7t [place] [address] Care Team Providers Care Vocational Auto Body Instructor Name Role Phone Name, Jamie DURHAM Primary Care Provider [phone] Encounter Details Date Type Department Care Team (Late st Contact Info) Description 10/03/2022 Abstract [facility] MEDICINE [address] [place] [address] [phone] NameJamie MD [address] [place] [address] [phone] Social History Tobacco Use Types Packs/Day Years [...] Description 03/02/2025 10:30 AM EDT Office Visit [facility] [address] [place] [address] [phone] Jamie Garcia MD [address] [place] [address] [phone] documented as of this encounter Procedures Procedure [...] on filedocumented in this encounter Care Teams Vocational Auto Body Instructor Relationship Specialty Start Date End Date Name, MD Jamie [address] [place] [address] PCP - General Family Medicine 10/29/15 [place] [facility] 07/02/24 documented as of this encounter
--- OUTSIDE RECORDS SUMMARY | 2025-01-23 10:57 | XMS_ITS | Encounter Summary ---
Author Organization [employer] Address [address] [facility] [address]t [place] [address] Care Team Providers Care Liaison Engineer Name Role Phone Name, Jamie DURHAM Primary Care Provider [phone] Encounter Details Date Type Department Care Team (Late st Contact Info) Description 06/14/2023 Abstract [facility] [address] [place], [place] [phone] Name, MD Jamie [address] [place], [place] [phone] Social History Tobacco Use Types Packs/Day Years [...] Description 03/02/2025 10:30 AM EDT Office Visit [facility] [address] [place] [address] Name, MD Jamie [address] [place] [address] documented as of this encounter Visit Diagnoses Not on filedocumented in this encounter Care Teams Liaison Engineer Relationship Specialty Start Date End Date Name, MD Jamie [address] [place] [phone] PCP - General Family Medicine 10/29/15 [facility] 07/02/24 documented as of this encounter
--- OUTSIDE RECORDS SUMMARY | 2025-01-23 10:57 | XMS_ITS | Encounter Summary ---
Author Organization [employer] Address [address] [facility] 7t [place] [address] Care Team Providers Care Human Resources Intern Name Role Phone Name, Jamie DURHAM Primary Care Provider [phone] Reason for Visit * Reason Comments Med Refill Encounter Details Date Type Department Care Team ([facility] st Contact Info) Description 08/10/2023 Refill [facility] [address] [place], [place] [phone] Name, MD Jamie [address] [place], [place] [phone] Social History Tobacco Use Types Packs/Day Years [...] Description 03/02/2025 10:30 AM EDT Office Visit [facility] [address] [place] [phone] Name, MD Jamie [address] [place] [phone] documented as of this encounter Visit Diagnoses Not on filedocumented in this encounter Additional Health Concerns Assessment Noted Time PHQ-9 Depression Total Score: 0 07/02/19 24 10:12 AM EST documented as of this encounter Care Teams Human Resources Intern Relationship Specialty Start Date End Date Name, MD Jamie [address] [place] [phone] PCP - General Family Medicine 10/29/15 [facility] 07/02/24 documented as of this encounter
--- OUTSIDE RECORDS SUMMARY | 2025-01-23 10:57 | XMS_ITS | Encounter Summary ---
Author Organization [employer] Address [address] [facility] 7t [place] [address] Care Team Providers Care Tester Vibrator Equipment Name Role Phone Name, Jamie DURHAM Primary Care Provider [phone] Reason for Visit * Reason Comments Med Refill Encounter Details Date Type Department Care Team ([facility] st Contact Info) Description 06/08/2024 Refill [facility] [address] [place], [place] [phone] Name, MD Jamie [address] [place], [place] [phone] Social History Tobacco Use Types Packs/Day Years [...] Description 03/02/2025 10:30 AM EDT Office Visit [facility] [address] [place] [phone] Name, MD Jamie [address] [place] [address] documented as of this encounter Visit Diagnoses Not on filedocumented in this encounter Additional Health Concerns Assessment Noted Time PHQ-9 Depression Total Score: 0 07/02/19 24 10:12 AM EST documented as of this encounter Care Teams Tester Vibrator Equipment Relationship Specialty Start Date End Date Name, MD Jamie [address] [place] [phone] PCP - General Family Medicine 10/29/15 Lia Gustavo 07/02/24 documented as of this encounter
--- OUTSIDE RECORDS SUMMARY | 2025-01-23 10:57 | XMS_ITS | Encounter Summary ---
Author Organization [employer] Address [address] [facility] 7t [place] [address] Care Team Providers Care Automatic Pattern Edger Name Role Phone Name, Jamie DURHAM Primary Care Provider Encounter Details Date Type Department Care Team (Late st Contact Info) Description 01/20/2025 Results Follow-Up [facility] [address] [place], [place] [phone] Macy Amador NP [address] [place], [place] [phone] Basic Metabolic Panel Social History Tobacco Use Types Packs/Day Years [...] Description 03/02/2025 10:30 AM EDT Office Visit [facility] [address] [place] [phone] NameJamie MD [address] [place] [phone] documented as of this encounter Visit Diagnoses Not on filedocumented in this encounter Additional Health Concerns Assessment Noted Time PHQ-9 Depression Total Score: 0 07/09/19 25 1:47 PM EST documented as of this encounter Care Teams Automatic Pattern Edger Relationship Specialty Start Date End Date NameJamie MD [address] [place] [phone] PCP - General Family Medicine 10/29/15 Lia SOFIA 07/02/24 documented as of this encounter
--- OUTSIDE RECORDS SUMMARY | 2025-01-23 10:57 | XMS_ITS | Encounter Summary ---
Author Organization [employer] Address [address] [facility] 7t [place] [address] Care Team Providers Care Home Therapy Teacher Name Role Phone Name, Jamie DURHAM Primary Care Provider [phone] Encounter Details Date Type Department Care Team (Late st Contact Info) Description 08/26/2023 Telephone [facility] [address] [place], [place] [phone] Name, MD Jamie [address] [place] [address] Social History Tobacco Use Types Packs/Day Years [...] Description 03/02/2025 10:30 AM EDT Office Visit [facility] [address] [place] [address] Name, MD Jamie [address] [place] [phone] documented as of this encounter Visit Diagnoses Not on filedocumented in this encounter Additional Health Concerns Assessment Noted Time PHQ-9 Depression Total Score: 0 07/02/19 24 10:12 AM EST documented as of this encounter Care Teams Home Therapy Teacher Relationship Specialty Start Date End Date Name, MD Jamie [address] [place] [phone] PCP - General Family Medicine 10/29/15 Lia [facility] 07/02/24 documented as of this encounter
== END 2025-01-23 10:56 | disposition home or self-care (01) ==
LOC: HO.HUSH 09:20
PROVIDERS: PCP Internal Medicine Geriatric Medicine; Visit Provider Urology
DX: N20.0 Calculus of kidney (principal); R82.89 Other abnormal findings on cytological and histological examination of urine; R31.29 Other microscopic hematuria; R35.0 Frequency of micturition; R35.1 Nocturia; N32.89 Other specified disorders of bladder; N40.1 Benign prostatic hyperplasia with lower urinary tract symptoms; R97.20 Elevated prostate specific antigen [PSA]; N43.3 Hydrocele, unspecified
CPT/HCPCS: 99214; G2211

== ENCOUNTER 2025-01-23 09:20 | Outpatient (REF) | payer OTHER, SELFPAY | END 2025-01-23 09:21 | disposition home or self-care (01) | LOC: HO.LAB 09:20 | PROVIDERS: PCP Internal Medicine Geriatric Medicine; Visit Provider Urology | DX: R97.20 Elevated prostate specific antigen [PSA] (principal); N43.3 Hydrocele, unspecified; R31.29 Other microscopic hematuria; N40.1 Benign prostatic hyperplasia with lower urinary tract symptoms; N32.89 Other specified disorders of bladder; R35.0 Frequency of micturition | CPT/HCPCS: 81003; 88112; 99212 ==

== ENCOUNTER 2025-02-07 14:49 | Outpatient (REF) | payer OTHER, SELFPAY ==
--- NOTE | ~2025-02-07 | XR_ITS ---
EXAMINATION: XR CHEST CLINICAL INFORMATION: patient with h/o pneumonia reports chills/ body aches and cough COMPARISON: 10/13/2024. TECHNIQUE: 2 views of the chest were obtained. FINDINGS: Examination is limited by severe kyphoscoliosis. There is distortion of the thorax, limiting evaluation of the lung parenchyma. The cardiac silhouette is grossly normal in size. Cannot evaluate the mediastinal or hilar contours well. There appears to be opacification of the left lung base with silhouetting of left hemidiaphragm suggestive of pneumonia. The right lung appears clear. There is no definite pneumothorax present. There is no pulmonary vascular congestion. XR/XR chest 2V IMPRESSION: Examination limited due to kyphoscoliosis. There appears to be left lower lobe opacity with silhouetting of the left hemidiaphragm, suspicious for pneumonia and/or atelectasis. Electronically signed by: Derek [place] MD 02/07/2025 04:06 PM EDT
--- OUTSIDE RECORDS SUMMARY | 2025-02-07 14:20 | XMS_ITS | Encounter Summary ---
Author Organization [employer] Address [address] [facility] 7t [place] [address] Care Team Providers Care Bag Machine Helper Name Role Phone Name, Jamie DURHAM Primary Care Provider [phone] Reason for Visit * Reason Comments Fatigue Reports cough x 3 we eks ago. Reports no longer has a cough, now is lethargic. Encounter Details Date Type Department Care Team (Late st Contact Info) Description 02/07/2025 2:20 PM EDT Office Visit [facility] [address] [place] [address] [phone] Salud Shaw MD [address] [place] [address] Viral syndrome (Primary Dx); Subjective fever; Cough, unspecified type; Back pain, unspecified back location, unspecified back pain laterality, unspecified chronicity Social History Tobacco Use Types Packs/Day Years [...] Sign Reading Time Taken Comments Blood Pressure 130/70 02/07/2025 2:11 PM EDT Pulse 68 02/07/2025 2:11 PM EDT Temperature 36.7 C (98.1 F) 02/07/2025 2:11 PM EDT Respiratory Rate 20 02/07/2025 2:11 PM EDT Oxygen Saturation 94% 02/07/2025 2:11 PM EDT Inhaled Oxygen Concentration - - Weight 42.2 kg (93 lb) 02/07/2025 2:11 PM EDT Height - - Body Mass Index 26.15 12/07/2024 10:02 AM EDT documented in this encounter Progress Notes * Salud Davis MD - 02/07/2025 2:20 PM EDT SUBJECTIVE: Ifeanyi White is a 74 y.o. year old male who presents for acute visit . Acute Concerns: Patient reports he was coughing a week ago and then started feeling sick, he tells me he feels subjective fever, chills, body aches and weakness, he tells me he was feeling the same way before when he was diagnosed with pneumonia and this is the reason why he is here today Patient today asked me for refill for his naproxen for his back pain, I agreeable for the refill I counseled him not to take it too often to avoid side effects Social History Social History Narrative Not on file Problem List[1] Benign prostatic hyperplasia (BPH) with straining on urination Candidal intertrigo Edema of lower extremity Essential hypertension Hearing aid worn Hearing problem Kidney stone Raised prostate specific antigen Short stature disorder Urinary bladder stone History of inguinal hernia repair, bilateral Mild intermittent asthma without complication Hydrocele, bilateral Renal mass of unknown nature Adrenal adenoma, left Hyponatremia Acute retention of urine Pneumonia Subjective fever Cough Family History[2] Review of Systems Constitutional: Positive for chills, diaphoresis, fatigue and fever. Negative for activity change, appetite change and unexpected weight change. HENT: Negative. Respiratory: Positive for cough and shortness of breath. Negative for apnea, choking, chest tightness, wheezing and stridor. Cardiovascular: Negative. OBJECTIVE: Vitals: 02/07/25 1411 BP: 130/70 BP Location: Left arm Patient Position: Sitting BP Cuff Size: Adult Pulse: 68 Resp: 20 Temp: 98.1 ??F (36.7 ??C) TempSrc: Temporal SpO2: 94% Weight: 93 lb (42.2 kg) Physical Exam Constitutional: Appearance: Normal appearance. Cardiovascular: Rate and Rhythm: Normal rate and regular rhythm. Pulmonary: Effort: Pulmonary effort is normal. Breath sounds: Normal breath sounds. Comments: Auscultation is difficult due to his anatomy Abdominal: General: Abdomen is flat. Palpations: Abdomen is soft. Musculoskeletal: Right lower leg: No edema. Left lower leg: No edema. Neurological: Mental Status: He is alert. Follow Up: No follow-ups on file. Medications Ordered Prior to Encounter[3] Problem List Items Addressed This Visit Subjective fever I will order an x-ray and urine test I will contact patient with results Relevant Orders XR Chest 2 Views (Completed) Cough Relevant Orders XR Chest 2 Views (Completed) Other Visit Diagnoses Viral syndrome - Primary Relevant Medications naproxen (Naprosyn) 500 MG tablet Other Relevant Orders POCT Rapid COVID-19 Binax NOW (Completed) POCT Rapid Influenza A KUMAR ID NOW (Completed) POCT Rapid Influenza B KUMAR ID NOW (Completed) Back pain, unspecified back location, unspecified back pain laterality, unspecified chronicity Relevant Medications naproxen (Naprosyn) 500 MG tablet Other Relevant Orders Culture, Urine, Routine [1] Patient Active Problem List Diagnosis Benign prostatic hyperplasia (BPH) with straining on urination Candidal intertrigo Edema of lower extremity Essential hypertension Hearing aid worn Hearing problem Kidney stone Raised prostate specific antigen Short stature disorder Urinary bladder stone History of inguinal hernia repair, bilateral Mild intermittent asthma without complication Hydrocele, bilateral Renal mass of unknown nature Adrenal adenoma, left Hyponatremia Acute retention of urine Pneumonia Subjective fever Cough [2] No family history on file. [3] Current Outpatient Medications on File Prior to Visit Medication Sig Dispense Refill albuterol 108 (90 Base) MCG/ACT inhaler Inhale 2 puffs every 4 (four) hours if needed. atorvastatin (Lipitor) 20 MG tablet TAKE 1 TABLET(20 MG) BY MOUTH IN THE MORNING 90 tablet 0 cetirizine (ZyrTEC) 10 MG tablet Take 1 tablet (10 mg) by mouth Once per day. 30 tablet 3 finasteride (Proscar) 5 MG tablet Take 1 tablet by mouth Once per day. fluticasone (Flonase) 50 MCG/ACT nasal spray Administer 2 sprays into each nostril Once per day. Shake gently. Before first use, prime pump. After use, clean tip and replace cap. 16 g 3 furosemide (Lasix) 40 MG tablet Take 40 mg by mouth Once per day. gabapentin (Neurontin) 300 MG capsule TAKE 1 CAPSULE(300 MG) BY MOUTH THREE TIMES DAILY 84 capsule 2 hydrocortisone (Proctosol HC) 2.5 % rectal cream Insert into the rectum 2 times daily. 28 g 2 losartan (Cozaar) 50 MG tablet Take 1 tablet (50 mg) by mouth Once per day. 30 tablet 11 solifenacin (VESIcare) 5 MG tablet Take 1 tablet by mouth Once per day. tamsulosin (Flomax) 0.4 MG 24 hr capsule TAKE 2 CAPSULES BY MOUTH EVERY DAY 30 MINUTES AFTER THE SAME MEAL 180 capsule 1 timolol (Timoptic) 0.5 % ophthalmic solution Administer 1 drop into the left eye in the morning. [DISCONTINUED] naproxen (Naprosyn) 500 MG tablet Take 1 tablet (500 mg) by mouth with breakfast andwith evening meal. 60 tablet 0 [DISCONTINUED] naproxen (Naprosyn) 500 MG tablet TAKE 1 TABLET(500 MG) BY MOUTH WITH BREAKFAST AND WITH THE EVENING MEAL 60 tablet 0 No current facility-administered medications on file prior to visit. documented in this encounter Miscellaneous Notes * Assessment & Plan Note - Salud Davis MD - 02/07/2025 4:21 PM EDT Associated Problem(s): Subjective fever I will order an x-ray and urine test I will contact patient with results documented in this encounter Plan of Treatment Upcoming Encounters Date Type Department Care Team (Late st Contact Info) Description 03/02/2025 10:30 AM EDT Office Visit [facility] [address] [place] [address] [phone] Name, MD Jamie [address] [place] [phone] Scheduled Orders Name Type Priority Associated Diagnoses Orde r Schedule Culture, Urine, Routine Microbiology Routine Back pain, unspecified back location, unspecified back pain laterality, unspecified chronicity Expected: 02/07/2025 (Approximate), Expires: 02/07/2026 documented as of this encounter Procedures Procedure Name Priority Date/Time Associated Diagnosis Comments XR CHEST 2 VIEWS Routine 02/07/2025 3:50 PM EDT Subjective fever Cough, unspecified type POCT INFLUENZA B (ID NOW RAPID MOLECULAR) Routine 02/07/2025 2:45 PM EDT Viral syndrome POCT INFLUENZA A (ID NOW RAPID MOLECULAR) Routine 02/07/2025 2:45 PM EDT Viral syndrome POCT RAPID COVID ANTIGEN Routine 02/07/2025 2:45 PM EDT Viral syndrome documented in this encounter Results * XR Chest 2 Views (02/07/2025 3:50 PM EDT) Anatomical Region Laterality Modality Chest Radiographic Iliana ging 02/07/2025 3:50 PM EDT Narrative 02/07/2025 4:09 PM EDT [address] [address] XRay Report Signed Patient: Ifeanyi White MR#: [id number] : 1950 Acct:[id number] Age/Sex: 74 / M ADM Date: 02/07/25 Loc: HO.CX Attending Dr: Salud Davis MD Ordering Physician: Salud Shaw MD Date of Service: 02/07/25 Procedure(s): XR chest 2V Accession Number(s): [id number] cc: Salud Shaw MD Reason for Exam: patient with h/o pneumonia reports chills/ body aches and cough EXAMINATION: XR CHEST CLINICAL INFORMATION: patient with h/o pneumonia reports chills/ body aches and cough COMPARISON: 10/13/2024. TECHNIQUE: 2 views of the chest were obtained. FINDINGS: Examination is limited by severe kyphoscoliosis. There is distortion of the thorax, limiting evaluation of the lung parenchyma. The cardiac silhouette is grossly normal in size. Cannot evaluate the mediastinal or hilar contours well. There appears to be opacification of the left lung base with silhouetting of left hemidiaphragm suggestive of pneumonia. The right lung appears clear. There is no definite pneumothorax present. There is no pulmonary vascular congestion. XR/XR chest 2V IMPRESSION: Examination limited due to kyphoscoliosis. There appears to be left lower lobe opacity with silhouetting of the left hemidiaphragm, suspicious for pneumonia and/or atelectasis. Electronically signed by: Derek [place] MD 02/07/2025 04:06 PM EDT Dictated By: Derek Graham MD Signed By: <Electronically signed by Derek Graham MD in OV> 02/07/25 1606 DD/ 1550 TD/TT: 02/07/25 1558 Cafe Manager: Procedure Note Donotuseinterpreter, Image - 02/07/2025 [facility] [address] [place] [address] XRay Report Signed Patient: Ifeanyi White AMR#: [id number] : 1950cct:[id number] Age/Sex: 74 / MADM Date: 02/07/25 Loc: .HHX Attending Dr: Salud Davis MD Ordering Physician: Salud Shaw MD Date of Service: 02/07/25 Procedure(s): XR chest 2V Accession Number(s): [id number] cc: Salud Shaw MD Reason for Exam: patient with h/o pneumonia reports chills/ body achesand cough EXAMINATION: XR CHEST CLINICAL INFORMATION: patient with h/o pneumonia reports chills/ body aches and cough COMPARISON: 10/13/2024. TECHNIQUE: 2 views of the chest were obtained. FINDINGS: Examination is limited by severe kyphoscoliosis. There is distortion of the thorax, limiting evaluation of the lung parenchyma. The cardiac silhouette is grossly normal in size. Cannot evaluate the mediastinal or hilar contours well. There appears to be opacification of the left lung base with silhouetting of left hemidiaphragm suggestive of pneumonia. The right lung appears clear. There is no definite pneumothorax present. There is no pulmonary vascular congestion. XR/XR chest 2V IMPRESSION: Examination limited due to kyphoscoliosis. There appears to be left lower lobe opacity with silhouetting of the left hemidiaphragm, suspicious for pneumonia and/or atelectasis. Electronically signed by: Derek [place] MD 02/07/2025 04:06 PM EDT Dictated By: Derek Graham MD Signed By: <Electronically signed by Derek Graham MD in OV> 02/07/25 1606 DD/ 1550 TD/TT: 02/07/25 1558 Cafe Manager: us Salud Davis MD IMG XR PROCEDURES Fin al Result * POCT Rapid Influenza B KUMAR ID NOW (02/07/2025 2:45 PM EDT) [facility] Influenza B Negative Negative, Indeterminate [facility] Media Lot # [id number] [facility] Lot# Expiration Date [facility] Swab 02/07/2025 2:45 PM EDT Salud Davis MD POINT OF CARE TEST EN TER/EDIT ORDERABLES Final Result Performing Organization Address City/[facility]/ZIP Co de Phone Number [facility] [address] [place] [address] [phone] * POCT Rapid Influenza A KUMAR ID NOW (02/07/2025 2:45 PM EDT) [facility] Influenza A Negative Negative, Indeterminate [facility] QC Media Lot # [id number] [facility] Lot# Expiration Date [facility] Swab 02/07/2025 2:45 PM EDT us Salud Davis MD POINT OF CARE TEST EN TER/EDIT ORDERABLES Final Result Performing Organization Address [facility] Co de Phone Number [facility] [address] [place] [phone] * POCT Rapid COVID-19 Binax NOW (02/07/2025 2:45 PM EDT) Pathologist [facility] Rapid COVID Ag Negative [facility] QC Media Lot # [id number] [facility] Lot# Expiration Date [id number] [facility] Swab 02/07/2025 2:45 PM EDT us Salud Davis MD POINT OF CARE TEST EN TER/EDIT ORDERABLES Final Result Performing Organization Address City/[facility]/ZIP Co de Phone Number [facility] [address] [place] [address] [phone] documented in this encounter Visit Diagnoses Diagnosis Viral syndrome- Primary Unspecified viral infection, in conditions classified elsewhere and of unspecified site Subjective fever Cough, unspecified type Back pain, unspecified back location, unspecified back pain laterality, unspecified chronicity documented in this encounter Additional Health Concerns Assessment Noted Time PHQ-9 Depression Total Score: 0 07/09/19 1:47 PM EST documented as of this encounter Care Teams Bag Machine Helper Relationship Specialty Start Date End Date Name, MD Jamie [address] [place] [phone] PCP - General Family Medicine 10/29/15 Lia SOFIA 07/02/24 documented as of this encounter
--- OUTSIDE RECORDS SUMMARY | 2025-02-07 18:05 | XMS_ITS | Clinical Summary ---
Author Organization [employer] Address [address] [place] [address] Care Team Providers Care Electrode Cleaner Name Role Phone Name, Jamie DURHAM Primary Care Provider [phone] Allergies Active Allergy Reactions Criticality Noted Date [...] per day. Active atorvastatin (Lipitor) 20 MG tabletIndicati ons:Scrotal [...] per day. 30 tablet 3 10/14/19 25 Active fluticasone (Flonase) 50 MCG/ACT nasal spray Administer 2 sprays into each nostril Once per day. Shake gently. Before first use, prime pump. After use, clean tip and replace cap. 16 g 3 10/14/19 25 026 Active gabapentin (Neurontin) 300 MG capsule TAKE 1 CAPSULE(300 MG) BY MOUTH THREE TIMES DAILY 84 capsule 2 12/28/19 25 Active naproxen (Naprosyn) 500 MG tabletIndicati ons:Back pain, unspecified back location, unspecified back pain laterality, unspecified chronicity Take 1 tablet (500 mg) by mouth every 12 (twelve) hours if needed for mild pain. 60 tablet 02/08/20 25 Active amoxicillin-cl avulanate (Augmentin) 875-125 MG tabletIndicati ons:Pneumonia of left lower lobe due to infectious organism Take 1 tablet by mouth 2 times daily for 7 days. 14 tablet 02/08/20 25 025 Active doxycycline (Vibra-Tabs) 100 MG tabletIndicati ons:Pneumonia of left lower lobe due to infectious organism Take 1 tablet (100 mg) by mouth 2 times daily for 7 days. Take with a full glass of water and do not lie down for at least 30 minutes after. 14 tablet 02/08/20 25 025 Active naproxen (Naprosyn) 500 MG tabletIndicati ons:Back pain, unspecified back location, unspecified back pain laterality, unspecified chronicity Take 1 tablet (500 mg) by mouth with breakfast and with evening meal. 60 tablet 12/08/19 25 025 Discontinued naproxen (Naprosyn) 500 MG tabletIndicati ons:Back pain, unspecified back location, unspecified back pain laterality, unspecified chronicity TAKE 1 TABLET(500 MG) BY MOUTH WITH BREAKFAST AND WITH THE EVENING MEAL 60 tablet 02/08/20 25 025 Discontinued(Re order (will not trigger notification to Pharmacy)) Active Problems Problem Noted Date Diagnosed Date Subjective fever 02/07/2025 Assessment & Plan (02/07/2025 4:21 PM EDT): I will order an x-ray and urine test I will contact patient with results Cough 02/07/2025 Pneumonia 11/23/2024 Hyponatremia 09/15/2023 Acute retention of urine 09/15/2023 Hydrocele, bilateral 07/02/2023 Renal mass of unknown nature 07/02/2023 Adrenal adenoma, left 07/02/2023 Overview (07/02/2023): 1.5 left adrenal incidentiloma (found on CT ordered by urology for renal stones). Blood work normal including screening for subclinical [place] and 24 urine metanephrines. His MRI was [...] stone 10/09/2017 Overview (09/15/2023): He follows with [facility] Has renal stones BPH Benign [...] 09/15/2023 Overview (03/13/2023): One episode uncomplicated at [facility] 09/2016 Normal colonoscopy the same year Repeat colonoscopy recommended in 10 years Cervical radiculitis 03/18/2012 024 Cervical spinal stenosis 03/18/2012 Neck pain 03/18/2012 03/13/2023 Low back pain 09/24/2009 07/02/2023 Scoliosis 09/24/2009 08/19/2024 Groin pain 09/24/2009 03/13/2023 Neuropathic pain syndrome (non-herpetic) 09/24/2009 03/13/2023 Encounters Date Type Department Care Team Description 02/07/2025 2:20 PM EDT Office Visit [facility] [address] [address] Salud Shaw MD Viral syndrome (Primary Dx); Subjective fever; Cough, unspecified type; Back pain, unspecified back location, unspecified back pain laterality, unspecified chronicity 02/07/2025 Results Follow-Up [address] [address] Salud Shaw MD XR Chest 2 Views 02/07/2025 Orders Only [address] [address] Salud Shaw MD Pneumonia of left lower lobe due to infectious organism (Primary Dx) 02/07/2025 Travel 02/04/[address] [address] Jamie Garcia MD Back pain, unspecified back location, unspecified back pain laterality, unspecified chronicity 01/23/2025 Orders Only GENERIC EXTERNAL DATA DEPARTMENT Provider, Generic External Data 01/20/2025 Results Follow-Up [address] [address] Macy Amador NP Basic Metabolic Panel 01/12/2025 Orders Only [address] [address] Macy Amador NP 12/26/[address] [address] Jamie Garcia MD 12/07/2024 9:45 AM EDT Office Visit [address] [address] Jamie Garcia MD Scoliosis of lumbosacral spine, unspecified scoliosis type (Primary Dx); Back pain, unspecified back location, unspecified back pain laterality, unspecified chronicity; Essential hypertension; History of pneumonia; Decreased hearing of both ears; Hearing aid worn 12/07/2024 Travel 11/24/[address] [address] Jamie Garcia MD Med Refill (pt requesting refills on all of his medications. /Explains he went to the pharmacy yesterday and their were no orders put in. ) 11/23/2024 3:15 PM EDT Office Visit [address] [address] Nicolas Boss CNP Pneumonia due to infectious organism, unspecified laterality, unspecified part of lung (Primary Dx); Hydrocele, bilateral 11/23/2024 Travel 11/22/[address] [address] Librado Cerna [place] CHARTPREP 11/22/[address] [address] Jamie Garcia MD 11/21/[address] [address] Jamie Garcia MD Med Refill (Pt requesting refill on Cefuroxime , also pt requesting refills on all medications that need refills. ) 11/14/2024 Orders Only [facility] External Provider, [facility] from Last 3 Months Immunizations Immunization Administration [...] (93 lb) 02/07/2025 2:11 PM EDT Height 127 cm (4' 2 ) 12/07/2024 10:02 AM EDT Body Mass Index 26.15 12/07/2024 10:02 AM EDT Plan of Treatment Upcoming Encounters Date Type Department Care Team (Late st Contact Info) Description 03/02/2025 10:30 AM EDT Office Visit [facility] [address] [place] [address] Name, MD Jamie [address] [place] [address] Health Maintenance Due Date Last Done Comments [...] 11/02/2017, Additional history exists COVID-19 Vaccine ( - season) 2025 06/14/2021, 05/24/2021 Influenza Vaccine (#1) [...] Routine 02/07/2025 2:45 PM EDT Viral syndrome CYTOPATH-CELL ENHANCED Routine 01/23/2025 5:31 PM EDT PSA, FREE AND TOTAL Routine 01/12/2025 1 [...] 2 VIEWS Routine 11/14/2024 6:30 PM EDT PROPHYLAXIS - ADULT Routine 08/19/2024 1 :00 [...] Recently Relevant to Health Maintenance Results * XR Chest 2 Views (02/07/2025 3:50 PM EDT) Only the most recent of2 resultswithin the time period is included. Anatomical Region Laterality Modality Chest Radiographic Iliana ging 02/07/2025 3:50 PM EDT Narrative 02/07/2025 4:09 PM EDT [address] [address] XRay Report Signed Patient: Ifeanyi White MR#: [id number] : 1950 Acct:[id number] Age/Sex: 74 / M ADM Date: 02/07/25 Loc: [facility] Attending Dr: Salud Davis MD Ordering Physician: Salud Shaw MD Date of Service: 02/07/25 Procedure(s): XR chest 2V Accession Number(s): [id number] cc: Salud Shaw MD Reason for Exam: [...] 02/07/25 1606 DD/ 1550 TD/TT: 02/07/25 1558 Steamer Blocker: Procedure Note Donotuseinterpreter, Image - 02/07/[address] [address] XRay Report Signed Patient: Ifeanyi White AMR#: [id number] : 1950cct:[id number] Age/Sex: 74 / MADM Date: 02/07/25 Loc: [facility] Attending Dr: Salud Davis MD Ordering Physician: Salud Shaw MD Date of Service: 02/07/25 Procedure(s): XR chest 2V Accession Number(s): [id number] cc: Salud Shaw MD Reason for Exam: [...] MD 02/07/2025 04:06 PM EDT Dictated By: Deerk Graham MD Signed By: <Electronically signed by Derek Graham MD in OV> 02/07/25 1606 DD/ 1550 TD/TT: 02/07/25 1558 Steamer Blocker: us Salud Davis MD IMG XR PROCEDURES Fin al Result * POCT Rapid Influenza B KUMAR ID NOW (02/07/2025 2:45 PM EDT) Influenza B Negative Negative, Indeterminate [facility] QC Media Lot # [id number] [facility] Lot# Expiration Date [facility] Swab 02/07/2025 2:45 PM EDT us Salud Davis MD POINT OF CARE TEST EN TER/EDIT ORDERABLES Final Result [facility] [address] [place] [address] [phone] * POCT Rapid Influenza A KUMAR ID NOW (02/07/2025 2:45 PM EDT) Influenza A Negative Negative, Indeterminate [facility] QC Media Lot # [id number] [facility] Lot# Expiration Date [facility] Swab 02/07/2025 2:45 PM EDT us Salud Davis MD POINT OF CARE TEST EN TER/EDIT ORDERABLES Final Result Performing Organization Address [facility]/ZIP Co de Phone Number [facility] [address] [place] [phone] * POCT Rapid COVID-19 Binax NOW (02/07/2025 2:45 PM EDT) Rapid COVID Ag Negative [facility] QC Media Lot # [id number] [facility] Lot# Expiration Date 8326 [facility] Swab 02/07/2025 2:45 PM EDT us Salud Davis MD POINT OF CARE TEST EN TER/EDIT ORDERABLES Final Result Performing Organization Address City/[facility]/ZIP Co de Phone Number [facility] [address] [place] [address] [phone] * Cytopath-cell enhanced (01/23/2025 5:31 PM EDT) 01/23/2025 5:31 PM EDT 01/24/2025 9:00 AM EDT [facility] - 01/24/2025 2:40 PM EDT ----- ------- Name: Ifeanyi White Gustavo Age/Sex: 74/M : 1950 Unit#: [id number] Attend Dr: Rhonda Castañeda MD Re01/23/25 Status: DEP [facility]: [facility] ------- SPEC : [id number] RECD: 01/24/25 STATUS: ALTAF CROFT NUM: [id number] DANN: 01/23/[address] [facility] [address]: Rhonda Castañeda MD ENTERED: 01/24/25 SP TYPE: Cytology OT DR: Jamie Garcia MD ORDERED: Cyto-enhanced Diagnosis Urine: Atypical urothelial cells. See comment. COMMENT: Cellular specimen consisting of atypical urothelial cells, which are small in size, have increased nuclear:cytoplasmic ratio and variable dark chromatin, mostly in small groups. The background has single urothelial cells with degenerative changes, squamous cells, mixed inflammatory cells, crystals and red blood cells. Clinical History Other microscopic hematuria Material Received Urine Gross Description Received is 25 cc of cloudy dark yellow fluid from which a ThinPrep slide is prepared. IHC S/NG Disclaimer NOTE: Unless otherwise stated, all tissue is formalin-fixed and paraffin-embedded. Some or all of the immunohistochemical tests reported herein may have been developed and their performance characteristics determined by [facility]. They have not been cleared or approved by the U.S. Food and Drug Administration (FDA). However, the FDA has determined that such clearance or approval is not necessary. This laboratory is certified under the Clinical Laboratory Improvement Amendments of 1988 (CLIA) as qualified to perform high complexity clinical laboratory testing. Copies To: Rhonda Castañeda MD [facility] [address] [place] [address] [address] [place], [place] [phone] [email or web address] Name,[place] [address] CONTINUED ON NEXT PAGE ----- ------- Name: ChristopherIfeanyi A Age/Sex: 74/M : 1950 Unit#: [id number] Attend Dr: Rhonda Castañeda MD Re01/23/25 Status: [facility] ----- ------- SPEC : [id number] RECD: 01/24/25-899 STATUS: ALTAF CROFT NUM: [id number] DANN: 01/23/25-1730 [facility] [address]: Rhonda Castañeda MD ENTERED: 01/24/25 SP TYPE: Cytology OTHR DR: Name,Jamie DURHAM ORDERED: Cyto-enhanced ----- ------- Signed (signature on file) Rafael Greene MD 01/24/25 1440 ----- ------- END OF REPORT us Generic External Data Provider LAB CYTOLOGY SANGEETHA ZARATE Final Result [facility] [address] [place] [phone] * (ABNORMAL) PSA, Free and Total (01/12/2025 11:57 AM EDT) PSA, Total 8.1(A) < OR = 4.0 ng/mL [facility] PSA % Free 21(A) >25 % (calc) [facility] Comment: PSA(ng/mL) Free PSA(%) Estimated(x) Probability of Cancer(as%)0-2.5 (*) Approx. 12.6-4.0(1) 0-27(2) 24(3)4.1-10(4) 0-10 56 11-15 28 16-20 20 21-25 16 >or =26 8>10(+) N/A >50References:(1)Chantel et al.:Urology 60: 469-474 (2002) (2)Lissyona et al.:J.Urol 168: 922-925 (2001) Free PSA(%) Sensitivity(%) Specificity(%) < or = 25 85 19 < or = 30 93 9 (3)Chantel et al.:JEAN 277: 2052-4465 (1996) (4)Catalona et al.:JEAN 279: 3229-0920 (1997)(x)These estimates vary with age, ethnicity, family [...] presence or absence ofdisease.THIS TEST WAS PERFORMED AT:[facility] [place] [phone] OSUNA MD PSA, Free 1.7 ng/mL [facility] 01/12/2025 11:5 7 AM EDT 01/12/2025 11:57 AM EDT us Generic External Data Provider LAB BLOOD ORDERAB LES Final Result [facility] [address] [place], [place] [phone] * (ABNORMAL) PSA, Total With Reflex to PSA, Free (01/12/2025 9:41 AM EDT) PSA,Total (Free>4and<10) 8.19(H) 0.00 - 4.00 ng/mL [facility] Comment:PSA methodology: Abb khushi Alinity i ChemiluminescentMicroparticle Immunoassay (CMIA) 01/12/2025 9:41 AM EDT 01/12/2025 9:41 AM EDT us Generic External Data Provider LAB BLOOD ORDERAB LES Final Result Performing Organization Address [facility] Co de Phone Number [facility] [address] [place] [address] [phone] * (ABNORMAL) Basic Metabolic Panel (01/12/2025 9:41 AM EDT) Sodium 140 135 - 145 mmol/L [facility] Potassium 4.0 3.3 - 5.1 mmol/L [facility] Chloride 99 96 - 108 mmol/L [facility] Carbon Dioxide 31(H) 22 - 29 mmol/L [facility] Anion Gap 14 12 - 20 [facility] Urea Nitrogen (BUN) 15 9 - 16 mg/dL [facility] Creatinine, Serum 0.65 0.5 - 1.4 mg/dL [facility] Estimated Glomerular Filt Rate >60 [facility] Comment:Chronic Kidney Disea se: Estimated GFR < 60 mL/min/1.81g5Ddagga Kidney Disease: Estimated GFR < 15 mL/min/1.73m2 Glucose 86 60 - 115 mg/dL [facility] Calcium 9.6 8.4 - 10.2 mg/dL [facility] 01/12/2025 9:41 AM EDT 01/12/2025 9:41 AM EDT us Macy Amador LEASE ANALYST LAB BLOOD ORDERABLES Final Resu lt Performing Organization Address [facility]/ZIP Co de Phone Number [facility] [address] [place] [address] [phone] * High Sensitivity Troponin I (11/14/2024 6:34 PM EDT) TROPONIN I HIGH SENSITIVITY 4.5 <3.5 - 35.0 ng/L [facility] Comment:The Kumar high sens itivity Troponin-I results should beused in conjunction with other diagnostic information suchas ECG, clinical observations and information, and patientsymptoms to aid in the diagnosis of [place]. 11/14/2024 6:34 PM EDT 11/14/2024 6:38 PM EDT Generic External Data Provider LAB BLOOD ORDERAB LES Final Result Performing Organization Address [facility] Co de Phone Number [facility] [address] [place] [phone] * SARS-CoV-2 RNA, Influenza A/B, and RSV RNA, Ql NAAT (11/14/2024 6:34 PM EDT) Influenza A PCR NEGATIVE Negative [facility] Influenza B PCR NEGATIVE Negative [facility] Resp Syncy Virus RNA Qual PCR NEGATIVE Negative [facility] SARS COV2 PCR NEGATIVE Negative [facility] Comment:All test results mus t [...] use by authorized laboratories.Testing performed on the Glomera GeneXpert utilizingreal-time RT-PCR.All SARS CoV2 and positive influenza A/B results arereported to [facility]. 11/14/2024 6:34 PM EDT 11/14/2024 6:38 PM EDT Generic External Data Provider LAB MICROBIOLOGY - GENERAL ORDERABLES Final Result Performing Organization Address [facility] Co de Phone Number [facility] [address] [place] [phone] * (ABNORMAL) CBC auto differential (11/14/2024 6:34 PM EDT) White Blood Count 5.3 4.8 - 10.8 X10*3/uL [facility] Red Blood Count 4.68 4.60 - 5.80 X10*6/uL [facility] Hemoglobin 15.1 14.0 - 18.0 g/dl [facility] Hematocrit 43.9 42.0 - 52.0 % [facility] Mean Corpuscular Volume 93.8 80.0 - 98.0 fL [facility] Mean Corpuscular Hemoglobin 32.3 27.0 - 33.0 pg [facility] Mean Corpuscular HGB Conc 34.4 31.0 - 36.0 g/dl [facility] Red Cell Distribution Width 12.4 11.0 - 16.0 % [facility] Platelet Count 161 160 - 400 X10*3/uL [facility] Mean Platelet Volume 9.2(L) 9.4 - 12.4 fL [facility] Neutrophils Percent Auto 67.2 45 - 73 % [facility] Imm Gran Pct Auto 0.4 0.0 - 0.4 % [facility] Lymphocytes Percent Auto 24.8 20 - 40 % [facility] Monocytes Percent Auto 6.6 2 - 11 % [facility] Eosinophils Percent Auto 0.8 0 - 4 % [facility] Basophils Percent Auto 0.2 0 - 2 % [facility] NRBC Pct Auto 0.0 0.0 - 0.2 /100WBC [facility] Neutrophils Absolute Auto 3.6 2.0 - 8.3 x10*3/uL [facility] Imm Gran Abs Auto 0.02 0.00 - 0.03 X10*3/uL [facility] Lymphocytes Absolute Auto 1.3 1.2 - 4.9 X10*3/uL [facility] Monocytes Absolute Auto 0.4 0.1 - 1.2 X10*3/uL [facility] Eosinophils Absolute Auto 0.0 0.0 - 0.4 X10*3/uL [facility] Basophils Absolute Auto 0.0 0.0 - 0.2 X10*3/uL [facility] NRBC Abs Auto 0.000 0.0 - 0.012 X10*3/uL [facility] 11/14/2024 6:34 PM EDT 11/14/2024 6:38 PM EDT Generic External Data Provider LAB BLOOD ORDERAB LES Final Result Performing Organization Address City/[facility]/ZIP Co de Phone Number [facility] [address] [place] [phone] * B Type Natriuretic Peptide (BNP) (11/14/2024 6:34 PM EDT) B Type Natriuretic Peptide 49 <100 pg/mL [facility] 11/14/2024 6:34 PM EDT 11/14/2024 8:59 PM EDT Generic External Data Provider LAB BLOOD ORDERAB LES Final Result Performing Organization Address [facility] Co de Phone Number [facility] [address] [place] [phone] * Magnesium (11/14/2024 6:34 PM EDT) Magnesium 2.1 1.6 - 2.6 mg/dL [facility] 11/14/2024 6:34 PM EDT 11/14/2024 6:38 PM EDT Generic External Data Provider LAB BLOOD ORDERAB LES Final Result Performing Organization Address [facility] Co de Phone Number [facility] [address] [place] [phone] * Lipase (11/14/2024 6:34 PM EDT) Lipase 47 8 - 78 U/L [facility] 11/14/2024 6:34 PM EDT 11/14/2024 6:38 PM EDT us Generic External Data Provider LAB BLOOD ORDERAB LES Final Result [facility] [address] [place] [phone] [phone] * (ABNORMAL) Comprehensive Metabolic Panel (11/14/2024 6:34 PM EDT) Sodium 135 135 - 145 mmol/L [facility] Potassium 4.6 3.3 - 5.1 mmol/L [facility] Chloride 98 96 - 108 mmol/L [facility] Carbon Dioxide 31(H) 22 - 29 mmol/L [facility] Anion Gap 11(L) 12 - 20 [facility] Urea Nitrogen (BUN) 16 9 - 16 mg/dL [facility] Creatinine, Serum 0.80 0.5 - 1.4 mg/dL [facility] Creatinine Clr Calc Pharmacy 36.2 [facility] Comment:eGFR (calculated fro m the MDRD study equation) and eCrCl(calculated from the Cockcroft-Gault equation) are based ondifferent parameters and may not yield comparable results.If eCrCl result is absurd, please check patient'sheight/weight. Estimated Glomerular Filt Rate >60 [facility] Comment:Chronic Kidney Disea se: Estimated GFR < 60 mL/min/1.15o0Xkosah Kidney Disease: Estimated GFR < 15 mL/min/1.73m2 Glucose 109 60 - 115 mg/dL [facility] Calcium 9.4 8.4 - 10.2 mg/dL [facility] Bilirubin, Total 0.5 0.0 - 1.0 mg/dL [facility] Aspartate Amino Transferase 21 5 - 37 U/L [facility] Alanine Aminotransferase 12 0 - 40 U/L [facility] Total Protein 7.2 6.5 - 8.0 g/dL [facility] Albumin Level 4.5 3.5 - 5.0 g/dL [facility] Alkaline Phosphatase 94 39 - 117 U/L [facility] 11/14/2024 6:34 PM EDT 11/14/2024 6:38 PM EDT us Generic External Data Provider LAB BLOOD ORDERAB LES Final Result Performing Organization Address [facility]/ZIP Co de Phone Number [facility] [address] [place] [phone] * Lipid Panel, Standard (04/11/2022 9:26 AM EST) [facility] Cholesterol, Total 149 <200 mg/dL [facility] [place] [employer] HDL Cholesterol 86 > OR = 40 mg/dL [facility] [place] [employer] Triglycerides 54 <150 mg/dL [facility] [place] [employer] LDL Cholesterol 50 mg/dL (calc) [facility] [place] [employer] Comment: Reference range: <100 Desirable range <100 mg/dL for primary prevention; <70 mg/dL for patients with CHD or diabetic patients with > or = 2 CHD risk factors. LDL-C is now calculated using the Fredy-Jesus calculation, which is a validated novel method providing better accuracy than the Friedewald equation in the estimation of LDL-C. Fredy SS et al. JEAN. 2013;310(19): 2651-9749 (http://education.[employer]/faq/UPC198) Chol/HDLC Ratio 1.7 <5.0 (calc) [facility] [place] [employer] Non-HDL Cholesterol 63 <130 mg/dL (calc) [facility] [facility] [place] [employer] Comment: For patients with diabetes plus 1 major ASCVD risk factor, treating to a non-HDL-C goal of <100 mg/dL (LDL-C of <70 mg/dL) is considered a therapeutic option. Blood Venous blood specimen / Unknown 04/11/2022 9:26 AM EST 04/11/2022 9:26 AM EST Narrative [facility] - 04/11/2022 9:46 PM EST FASTING:YES FASTING: YES Jamie Garcia MD LAB BLOOD ORDERABLES Final Resul t [facility] [address], [place] [phone] [facility] [address], [place] [address] * Colonoscopy (11/17/2016 12:06 PM EDT) Colonoscopy Normal Normal Narrative Maria Esther Zhao - 11/17/2016 12:06 PM EDT Recommended 10 years follow up us Historical Provider MD HEALTH MAINTENANCE Final Result from Last 3 Months or Most Recently Relevant to Health Maintenance [facility] [place] [facility] DETENTION OPTIONS (O D-SNP) DENTAL - [facility] Care Teams Electrode Cleaner Relationship Specialty Start Date End Date Name, MD Jamie [address] [place] [phone] PCP - General Family Medicine 10/29/15 [facility] 07/02/24
--- OUTSIDE RECORDS SUMMARY | 2025-02-07 18:05 | XMS_ITS | Encounter Summary ---
Author Organization [employer] Address [address] [facility] 7t [place] [address] Care Team Providers Care Story Editor Name Role Phone Name, Jaime DURHAM Primary Care Provider [phone] Encounter Details Date Type Department Care Team (Late st Contact Info) Description 01/20/2025 Results Follow-Up [facility] MEDICINE 230 [place] [address] Macy Amador NP 230 [place] [address] Basic Metabolic Panel Social History Tobacco Use [...] Description 03/02/2025 10:30 AM EDT Office Visit [facility] MEDICINE [address] [place] [address] Name, MD Jamie [address] [place] [address] documented as of this encounter Visit Diagnoses Not on filedocumented in this encounter Additional Health Concerns Assessment Noted Time PHQ-9 Depression Total Score: 0 07/09/19 25 1:47 PM EST documented as of this encounter Care Teams Story Editor Relationship Specialty Start Date End Date NameJamie MD [address] [place] [address] PCP - General Family Medicine 10/29/15 Lia [facility] 07/02/24 documented as of this encounter
--- OUTSIDE RECORDS SUMMARY | 2025-02-07 18:05 | XMS_ITS | Encounter Summary ---
Author Organization [employer] Address 75 [facility] 7t [place] [address] Care Team Providers Care Sample Patternmaker Name Role Phone Name, Jamie DURHAM Primary Care Provider [phone] Reason for Visit * Reason Comments Med Refill Encounter Details Date Type Department Care Team ([facility] st Contact Info) Description 02/04/2025 Refill [facility] MEDICINE 230 [place], [place] [phone] Name, MD Jamie 230 [place] [address] Back pain, unspecified back location, unspecified back [...] Description 03/02/2025 10:30 AM EDT Office Visit [facility] MEDICINE [address] [place] [address] NameJamie MD 230 [place] [address] documented as of this encounter Visit Diagnoses Diagnosis Back pain, unspecified back location, unspecified back pain laterality, unspecified chronicity documented in this encounter Additional Health Concerns Assessment Noted Time PHQ-9 Depression Total Score: 0 07/09/19 25 1:47 PM EST documented as of this encounter Care Teams Sample Patternmaker Relationship Specialty Start Date End Date Jamie Garcia MD [address] [place] [address] PCP - General Family Medicine 10/29/15 Lia [facility] 07/02/24 documented as of this encounter
--- OUTSIDE RECORDS SUMMARY | 2025-02-07 18:05 | XMS_ITS | Encounter Summary ---
Author Organization [employer] Address 75 [facility] 7t [place] [address] Care Team Providers Care Slubber Operator Name Role Phone Name, Jamie DURHAM Primary Care Provider [phone] Encounter Details Date Type Department Care Team (Latest Contact Info) Description 08/24/2018 Abstract [facility] CONVERSIONS Dental, Provider, DDS Social History Tobacco [...] Description 03/02/2025 10:30 AM EDT Office Visit [facility] MEDICINE [address] [place] [address] Name, MD Jamie 230 [place] [address] documented as of this encounter Visit Diagnoses Not on filedocumented in this encounter Care Teams Slubber Operator Relationship Specialty Start Date End Date Name, MD Jamie 230 [place] [address] PCP - General Family Medicine 10/29/15 [facility] 07/02/24 documented as of this encounter
--- OUTSIDE RECORDS SUMMARY | 2025-02-07 18:05 | XMS_ITS | Encounter Summary ---
Author Organization [employer] Address 75 [facility] 7t [place] [address] Care Team Providers Care Job Captain Name Role Phone Name, Jamie DURHAM Primary Care Provider [phone] Encounter Details Date Type Department Care Team (Latest Contact Info) Description 02/07/2025 Travel Social History Tobacco Use Types Packs/Day [...] 03/02/2025 10:30 AM EDT Office Visit [facility] MEDICINE [address] [place] [address] Name, MD Jamie [address] [place] [address] documented as of this encounter Visit Diagnoses Not on filedocumented in this encounter Additional Health Concerns Assessment Noted Time PHQ-9 Depression Total Score: 0 07/09/19 25 1:47 PM EST documented as of this encounter Care Teams Job Captain Relationship Specialty Start Date End Date Name, MD Jamie [address] [place] [address] PCP - General Family Medicine 10/29/15 Lia [facility] 07/02/24 documented as of this encounter
--- OUTSIDE RECORDS SUMMARY | 2025-02-07 18:05 | XMS_ITS | Encounter Summary ---
Author Organization [employer] Address 75 [facility] 7t [place] [address] Care Team Providers Care Net Mender Name Role Phone Name, Jamie DURHAM Primary Care Provider [phone] Reason for Visit * Reason Comments Med Refill Encounter Details Date Type Department Care Team ([facility] st Contact Info) Description 08/10/2023 Refill [facility] MEDICINE 230 [place], [place] [phone] Name, MD Jamie 230 [place] [address] Social History Tobacco Use Types Packs/Day Years [...] 10:30 AM EDT Office Visit [facility] MEDICINE [address] [place] [address] Name, MD Jamie [address] [place] [address] documented as of this encounter Visit Diagnoses Not on filedocumented in this encounter Additional Health Concerns Assessment Noted Time PHQ-9 Depression Total Score: 0 07/02/19 24 10:12 AM EST documented as of this encounter Care Teams Net Mender Relationship Specialty Start Date End Date NameJamie MD [address] [place] [address] PCP - General Family Medicine 10/29/15 Lia [facility] 07/02/24 documented as of this encounter
--- OUTSIDE RECORDS SUMMARY | 2025-02-07 18:05 | XMS_ITS | Encounter Summary ---
Author Organization [employer] Address 75 [facility] 7t [place] [address] Care Team Providers Care Foundry Equipment Mechanic Name Role Phone Name, Jamie DURHAM Primary Care Provider [phone] Encounter Details Date Type Department Care Team ([facility] st Contact Info) Description 06/14/2023 Abstract [facility] MEDICINE 230 [place], [place] [phone] Name, MD Jamie 230 [place], [place] [phone] Social History Tobacco Use Types Packs/Day Years [...] Description 03/02/2025 10:30 AM EDT Office Visit [facility] MEDICINE 230 [place] [address] Name, MD Jamie [address] [place] [address] documented as of this encounter Visit Diagnoses Not on filedocumented in this encounter Care Teams Foundry Equipment Mechanic Relationship Specialty Start Date End Date Name, MD Jamie [address] [place] [address] PCP - General Family Medicine 10/29/15 [facility] 07/02/24 documented as of this encounter
--- OUTSIDE RECORDS SUMMARY | 2025-02-07 18:05 | XMS_ITS | Encounter Summary ---
Author Organization [employer] Address [address] [facility] 7t [place] [address] Care Team Providers Care Dry Wall Finisher Name Role Phone Name, Jamie DURHAM Primary Care Provider Reason for Visit * Reason Onset Date Comments Hospital Follow-up 07/04/2024 Encounter Details Date Type Department Care Team ([facility] st Contact Info) Description 07/04/2024 Telephone [facility] MEDICINE 230 [place], [place] [phone] Name, MD Jamie 230 [place] [address] Hospital Follow-up Social History Tobacco Use Types [...] from pt requesting a HDF appt. [place] [facility] [place] of admission: 06/28 Discharge date: 06/30 Diagnosed: pneumonia, flu *Send message to [facility] [phone] croatian documented in this encounter Plan of Treatment Upcoming Encounters Date Type Department Care Team (Late st Contact Info) Description 03/02/2025 10:30 AM EDT Office Visit [facility] MEDICINE [address] [place] [address] Name, MD Jamie [address] [place] [address] documented as of this encounter Visit Diagnoses Not on filedocumented in this encounter Additional Health Concerns Assessment Noted Time PHQ-9 Depression Total Score: 0 07/02/19 24 10:12 AM EST documented as of this encounter Care Teams Dry Wall Finisher Relationship Specialty Start Date End Date NameJamie MD [address] [place] [address] PCP - General Family Medicine 10/29/15 Lia [facility] 07/02/24 documented as of this encounter
--- OUTSIDE RECORDS SUMMARY | 2025-02-07 18:05 | XMS_ITS | Encounter Summary ---
Author Organization [email or web address] Address 75 [facility] 7t [place] [address] Care Team Providers Care Hand Sewer Shoes Name Role Phone Name, Jamie DURHAM Primary Care Provider [phone] Encounter Details Date Type Department Care Team ([facility] st Contact Info) Description 02/07/2025 Results Follow-Up [facility] MEDICINE 230 [place] [address] Salud Shaw MD 230 [place] [address] XR Chest 2 Views Social History Tobacco Use Types Packs/Day Years [...] encounter Miscellaneous Notes * Telephone Encounter - Madelyn Cisse RN - 02/07/2025 4:23 PM EDT TC placed to pt spoke to pt with permission and the message below was discussed, pt is aware of results ----- Message from Salud Davis MD sent at 02/07/2025 4:15 PM EDT ----- Please let patient know I reviewed his XRAY it appears he has pneumonia I send antibiotics to pharmacy please advise if symptoms persist or worse he would have to go to the ED ----- Message ----- From: Urbano, Ris Results In Sent: 02/07/2025 4:10 PM EDT To: Salud Davis MD documented in this encounter Plan of Treatment Upcoming Encounters Date Type Department Care Team (Late st Contact Info) Description 03/02/2025 10:30 AM EDT Office Visit [facility] MEDICINE 230 [place] [address] Name, MD Jamie 230 [place] [address] documented as of this encounter Visit Diagnoses Not on filedocumented in this encounter Additional Health Concerns Assessment Noted Time PHQ-9 Depression Total Score: 0 07/09/19 1:47 PM EST documented as of this encounter Care Teams Hand Sewer Shoes Relationship Specialty Start Date End Date Name, MD Jamie 230 [place] [address] PCP - General Family Medicine 10/29/15 [facility] 07/02/24 documented as of this encounter
--- OUTSIDE RECORDS SUMMARY | 2025-02-07 18:05 | XMS_ITS | Encounter Summary ---
Author Organization [employer] Address 75 [facility] 7t [place] [address] Care Team Providers Care Street Department Dispatcher Name Role Phone Name, Jamie DURHAM Primary Care Provider [phone] Reason for Visit * Reason Comments Med Refill Encounter Details Date Type Department Care Team ([facility] st Contact Info) Description 10/12/2023 Refill [facility] MEDICINE 230 [place], [place] [phone] Name, MD Jamie 230 [place] [address] Social History Tobacco Use Types Packs/Day Years [...] Description 03/02/2025 10:30 AM EDT Office Visit [facility] MEDICINE [address] [place] [address] Name, MD Jamie [address] [place] [address] documented as of this encounter Visit Diagnoses Not on filedocumented in this encounter Additional Health Concerns Assessment Noted Time PHQ-9 Depression Total Score: 0 07/02/19 24 10:12 AM EST documented as of this encounter Care Teams Street Department Dispatcher Relationship Specialty Start Date End Date NameJamie MD [address] [place] [address] PCP - General Family Medicine 10/29/15 Lia Gust[facility] 07/02/24 documented as of this encounter
--- OUTSIDE RECORDS SUMMARY | 2025-02-07 18:05 | XMS_ITS | Encounter Summary ---
Author Organization [employer] Address 75 [facility] 7t [place] [address] Care Team Providers Care Allergy And Immunology Chief Name Role Phone Name, Jamie DURHAM Primary Care Provider Encounter Details Date Type Department Care Team ([facility] st Contact Info) Description 08/26/2023 Telephone [facility] MEDICINE 230 [place], [place] [phone] Name, MD Jamie 230 [place] [address] Social History Tobacco Use Types Packs/Day Years [...] Description 03/02/2025 10:30 AM EDT Office Visit [facility] MEDICINE [address] [place] [address] Name, MD Jamie [address] [place] [address] documented as of this encounter Visit Diagnoses Not on filedocumented in this encounter Additional Health Concerns Assessment Noted Time PHQ-9 Depression Total Score: 0 07/02/19 24 10:12 AM EST documented as of this encounter Care Teams Allergy And Immunology Chief Relationship Specialty Start Date End Date NameJamie MD [address] [place] [address] PCP - General Family Medicine 10/29/15 Lia [facility] 07/02/24 documented as of this encounter
--- OUTSIDE RECORDS SUMMARY | 2025-02-07 18:05 | XMS_ITS | Encounter Summary ---
Author Organization [employer] Address [address] [facility] 7t [place] [address] Care Team Providers Care Shochet Name Role Phone Name, Jamie DURHAM Primary Care Provider [phone] Encounter Details Date Type Department Care Team ([facility] st Contact Info) Description 02/07/2025 Orders Only [facility] MEDICINE 230 [place], [place] [phone] Salud Shaw MD 230 [place], [place] [phone] Pneumonia of left lower lobe due to infectious organism (Primary Dx) Social History Tobacco Use Types Packs/Day Years [...] 03/02/2025 10:30 AM EDT Office Visit [facility] MEDICINE [address] [place] [address] Name, MD Jamie [address] [place] [address] documented as of this encounter Visit Diagnoses Diagnosis Pneumonia of left lower lobe due to infectious organism- Primary documented in this encounter Additional Health Concerns Assessment Noted Time PHQ-9 Depression Total Score: 0 07/09/19 25 1:47 PM EST documented as of this encounter Care Teams Shochet Relationship Specialty Start Date End Date NameJamie MD [address] [place] [address] PCP - General Family Medicine 10/29/15 Lia [facility] 07/02/24 documented as of this encounter
--- OUTSIDE RECORDS SUMMARY | 2025-02-07 18:06 | XMS_ITS | Encounter Summary ---
Author Organization [employer] Address 75 [facility] 7t [place] [address] Care Team Providers Care Ankle Patch Molder Name Role Phone Name, Jamie DURHAM Primary Care Provider [phone] Encounter Details Date Type Department Care Team (Late st Contact Info) Description 10/03/2022 Abstract [facility] MEDICINE [address] [place], [place] [address], [place] [phone] Name, MD Jamie [address] [place] [address] [phone] Social History Tobacco Use Types Packs/Day Years [...] Description 03/02/2025 10:30 AM EDT Office Visit [facility] MEDICINE [address] [place] [address] [phone] Name, MD Jamie [address] [place] [address] [phone] documented as of this encounter Procedures Procedure [...] on filedocumented in this encounter Care Teams Ankle Patch Molder Relationship Specialty Start Date End Date Name, MD Jamie [address] [place] [address]18 PCP - General Family Medicine 10/29/15 Lia [facility] 07/02/24 documented as of this encounter
--- OUTSIDE RECORDS SUMMARY | 2025-02-07 18:06 | XMS_ITS | Encounter Summary ---
Author Organization [employer] Address 75 [facility] 7t [place] [address] Care Team Providers Care Deep Submergence Vehicle Operator Name Role Phone Name, Jamie DURHAM Primary Care Provider [phone] Reason for Visit * Reason Comments Med Refill Encounter Details Date Type Department Care Team ([facility] st Contact Info) Description 06/08/2024 Refill [facility] MEDICINE 230 [place], [place] [phone] Name, MD Jamie 230 [place] [address] Social History Tobacco Use Types Packs/Day Years [...] 10:30 AM EDT Office Visit [facility] MEDICINE [address] [place] [address] Name, MD Jamie [address] [place] [address] documented as of this encounter Visit Diagnoses Not on filedocumented in this encounter Additional Health Concerns Assessment Noted Time PHQ-9 Depression Total Score: 0 07/02/19 24 10:12 AM EST documented as of this encounter Care Teams Deep Submergence Vehicle Operator Relationship Specialty Start Date End Date NameJamie MD [address] [place] [address] PCP - General Family Medicine 10/29/15 Lia Gustavo 07/02/24 documented as of this encounter
== END 2025-02-07 14:50 | disposition home or self-care (01) ==
LOC: HO.HHCX 14:49
PROVIDERS: Visit Provider Internal Medicine
DX: R50.9 Fever, unspecified (principal); R05.9 Cough, unspecified; M54.9 Dorsalgia, unspecified
CPT/HCPCS: 71046; 87086

== ENCOUNTER → 2025-02-07 14:49 | Outpatient (BNV) | payer OTHER, SELFPAY | PROVIDERS: Visit Provider Radiology Diagnostic Radiology | DX: R05.9 Cough, unspecified (principal) | CPT/HCPCS: 71046 ==

== ENCOUNTER 2025-02-18 13:48 | Emergency (ER) | payer OTHER, SELFPAY ==
[2025-02-18 14:00] VITALS: BP 150/98; BP 151/71; PULSE 114; RESP 19; TEMP 36.6; O2SAT 97; BMI 19.4
[2025-02-18 14:51] LABS: MANUAL DIFF FLAG NO
[2025-02-18 14:53] LABS: Hematocrit 44.7 % (42.0-52.0); Hemoglobin 15.5 g/dl (14.0-18.0); Imm Gran Abs Auto 0.02 X10*3/uL (0.00-0.03); Imm Gran Pct Auto 0.3 % (0.0-0.4); Lymphocytes Absolute Auto 1.4 X10*3/uL (1.2-4.9); Mean Corpuscular HGB Conc 34.7 g/dl (31.0-36.0); Mean Corpuscular Hemoglobin 32.0 pg (27.0-33.0); Mean Corpuscular Volume 92.2 fL (80.0-98.0); NRBC Abs Auto 0.000 X10*3/uL (0.0-0.012); NRBC Pct Auto 0.0 /100WBC (0.0-0.2); Platelet Count 150 X10*3/uL (160-400); Red Blood Count 4.85 X10*6/uL (4.60-5.80); White Blood Count 6.6 X10*3/uL (4.8-10.8)
[2025-02-18 15:11] LABS: Alanine Aminotransferase 11 U/L (0-40); Albumin Level 4.7 g/dL (3.5-5.0); Alkaline Phosphatase 97 U/L (39-117); Anion Gap 18 (12-20); Aspartate Amino Transferase 26 U/L (5-37); Blood Urea Nitrogen 16 mg/dL (9-16); Calcium 9.8 mg/dL (8.4-10.2); Carbon Dioxide 28 mmol/L (22-29); Chloride 93 mmol/L (96-108); Creatinine Clr Calc Pharmacy 47.0; Estimated Glomerular Filt Rate > 60; Potassium 4.0 mmol/L (3.3-5.1); Sodium 135 mmol/L (135-145); Total Protein 7.4 g/dL (6.5-8.0)
--- NOTE | 2025-02-18 15:18 | ED.MALEGU ---
HPI - Male Genitourinary General Chief complaint: Urogenital-Male Stated complaint: bladder/abd pain, h/o UTI, unable to void Time Seen by Provider: 02/18/25 15:18 Source: patient, RN notes reviewed and spanish interpreter/translator Mode of arrival: ambulatory Limitations: language barrier History of Present Illness ED Provider: Ailin Gilliam PA-C HPI Narrative: This is a 74-year-old Nauruan-speaking male, with a past medical history of chf, congenital vs acquired pectus carinatum, bph, chronic bilateral hydroceles, presents emergency department with concerns of inability to urinate and pain to the bladder area. He has a history of urinary tract infections. Patient reports that he took his ?water pill?, and states that he was having urinary frequency. He states that now he is unable to urinate. He states that he has a lot of pressure in his suprapubic region. He denies any pain with urination. He denies any fevers, chills, chest pain, shortness of breath, abdominal pain, nausea, vomiting or diarrhea. Patient states that this is happened to him before. No other complaints or concerns at this time. Onset (ago): hour(s) Quality: aching Relieving factors: none Exacerbating factors: none Related Data Home Medications ?Medication ?Instructions ?Recorded ?Confirmed gabapentin 300 mg capsule 300 mg PO DAILY 06/03/23 01/23/25 latanoprost 0.005 % eye drops 1 drp ophthalmic-Left QPM 06/03/23 01/23/25 naproxen 500 mg tablet 500 mg PO BID PRN Pain 06/03/23 01/23/25 losartan 25 mg tablet 25 mg PO DAILY 07/04/23 01/23/25 atorvastatin 20 mg tablet 20 mg PO DAILY 06/27/24 01/23/25 edrfhnpeapnmumtnomjodv-txterarv-cbralgtl 1 drp ophthalmic-Left BEDTIME 06/27/24 01/23/25 80 0.5 %-1 %-0.5 % eye drops (Refresh Optive Advanced) timolol maleate 0.5 % eye drops 1 drp ophthalmic-Left DAILY 06/27/24 01/23/25 Previous Rx's ?Medication ?Instructions ?Recorded furosemide 20 mg tablet (Lasix) 20 mg PO DAILY #30 tabs 06/30/24 cefpodoxime 200 mg tablet 200 mg PO BID #10 tabs 11/14/24 doxycycline hyclate 100 mg capsule 100 mg PO BID #10 caps 11/14/24 ciprofloxacin HCl 500 mg tablet 500 mg PO BID 5 days #10 tabs 01/23/25 finasteride 5 mg tablet 5 mg PO DAILY 30 days #30 tabs 01/23/25 tamsulosin 0.4 mg capsule 0.8 mg (2 x 0.4 mg) PO DAILY #180 01/23/25 caps Allergies Allergy/AdvReac Type Severity Reaction Status Date / Time No Known Allergies Allergy Verified 02/18/25 14:02 Review of Systems Review of Systems: Constitutional : No Fever, No Chills ENT/Mouth : No sore throat, No Rhinorrhea Eyes: No Eye Pain, No Swelling, No Redness Cardiovascular : No Chest Pain, No SOB Respiratory : No Cough, No Sputum Gastrointestinal : No Nausea, No Vomiting, No Diarrhea, No abdominal Pain Genitourinary : No Dysuria, No Hematuria Musculoskeletal : No joint pain, No Myalgias, No Joint Swelling Skin : No Skin Lesions Neuro : No Weakness, No Numbness, No Headache All other systems reviewed and are negative Yes all other systems are reviewed and are negative Constitutional: Constitutional: Reports as per [facility] Past Medical History Attestation statement: The following information was validated with the patient. Medical History Hydrocele, bilateral Renal mass of unknown nature Pectus carinatum BPH (benign prostatic hyperplasia) Urinary retention Surgical History Hx of cystoscopy History of surgery on lower extremity H/O inguinal hernia repair Social History Social History Household Members: Spouse Housing: Apartment Do you presently have visiting nurse or other home services: No Alcohol intake: never Comment: reinforced on bed alarm Patient Tobacco Use Status: Never used Tobacco e-Cigarette/Vaping Use: Never Used Advance Directives: Yes Advance Directives on File: Yes Advance Directives Date on File: 07/08/23 Do you have a plan to hurt others: No Plan service: No Physical Exam Vital Signs: Vital Signs: Last Vital Signs Temp 97.8 F 02/18/25 14:00 Pulse 106 H 02/18/25 15:55 Resp 18 02/18/25 15:55 BP 137/82 02/18/25 15:55 Pulse Ox 97 02/18/25 15:55 O2 Del Method Room Air 02/18/25 15:55 BMI result Body Mass Index 19.4 Const: General: cooperative, comfortable and no acute distress Orientation/consciousness: patient oriented x3 Limitations: no limitations HEENT: Head: Yes normal to inspection, Yes normocephalic and Yes atraumatic Ears: hearing grossly normal bilaterally General nose exam: Normal external nose present Face and sinus: Yes normal facial exam Mouth: Normal oral and palatal mucosa present, oropharynx normal and moist mucous membranes Throat: Yes posterior oropharynx normal Eyes: General: appearance normal, both eyes and all related structures Eyelids: Yes eyelids normal Conjunctivae: conjunctivae normal Sclerae: sclerae normal Pupils: Equal, round and reactive pupils present EOM: EOMs intact bilaterally Neck: Neck: Yes normal visual inspection, Yes full ROM and Yes no lymphadenopathy Lymphatic: no lymphadenopathy noted Chest: Chest palpation & inspection: normal inspection of the chest Resp: Effort & Inspection: normal respiratory effort and able to speak in complete sentences Auscultation: clear to auscultation bilaterally, no crackles, no rales, no rhonchi and no wheezes Cardio: Rate: regular rate Rhythm: regular rhythm Heart sounds: S1 normal heart sound present and S2 normal heart sound present GI: Other: Abdomen is soft, with tenderness palpation in the suprapubic region, no rebound or guarding Inspection: Yes normal to inspection Skin: General skin exam: no rashes or lesions noted Trauma: no lacerations or abrasions Wounds: no wounds Neuro: General: patient oriented x3 and moves all extremities Cranial nerves: Yes Equal, round and reactive pupils present Extrem: General: Yes normal to inspection Right upper extremity: normal to inspection Left upper extremity: normal to inspection Right lower extremity: normal to inspection Left lower extremity: normal to inspection Medical Decision Making Medical Decision Making MDM Narrative: This is a 74-year-old male, with a past medical history of urinary retention, chf, congenital vs acquired pectus carinatum, bph, chronic bilateral hydroceles, who presents emergency department with concerns of urinary retention since today. Patient states that he had urinary frequency as he took his water pill and states that he suddenly was unable to urinate. He states that he is currently being worked up for BPH in the past. Patient uncomfortable secondary to bladder fullness. He is afebrile, speaking in full sentences, infection is not suspected. Differential diagnoses include UTI, BPH, urinary retention. Bladder scan revealing for 49 and bladder. Pacheco catheter was placed. He immediately had relief. Labs were obtained prior to my evaluation, he has no leukocytosis, platelets 150 however patient has a history of this. This is around his baseline, electrolytes within normal limits. Urine with large blood, and rbc's. Urine does not appear to be infected. Given referral to Urology, advised to follow-up. Given strict return precautions, he understands and agrees with plan. Patient stable for discharge. Differential Diagnosis Differential Diagnoses: The differential diagnosis associated with the presentation includes See above Admission/Observation Consideration of admission/observation: Escalation of care including admission/observation considered Lab Data [facility] Lab Attestation statement: I reviewed the patient's lab results. See [facility] 02/18/25 14:46 02/18/25 14:46 Labs: Lab Results 02/18/25 02/18/25 Range/Units 14:46 17:45 WBC 6.6 (4.8-10.8) X10*3/uL RBC 4.85 (4.60-5.80) X10*6/uL Hgb 15.5 (14.0-18.0) g/dl Hct 44.7 (42.0-52.0) % MCV 92.2 (80.0-98.0) fL MCH 32.0 (27.0-33.0) pg MCHC 34.7 (31.0-36.0) g/dl RDW 12.0 (11.0-16.0) % Plt Count 150 L (160-400) X10*3/uL MPV 9.4 (9.4-12.4) fL Immature Gran % (Auto) 0.3 (0.0-0.4) % Neut % (Auto) 70.7 (45-73) % Lymph % (Auto) 21.9 (20-40) % [place] % (Auto) 6.4 (2-11) % Eos % (Auto) 0.5 (0-4) % Baso % (Auto) 0.2 (0-2) % Lymph # (Auto) 1.4 (1.2-4.9) X10*3/uL [place] # (Auto) 0.4 (0.1-1.2) X10*3/uL Eos # (Auto) 0.0 (0.0-0.4) X10*3/uL Baso # (Auto) 0.0 (0.0-0.2) X10*3/uL Abs Immat Gran (auto) 0.02 (0.00-0.03) X10*3/uL Absolute Neuts (auto) 4.7 (2.0-8.3) x10*3/uL Absolute Nucleated RBC 0.000 (0.0-0.012) X10*3/uL Nucleated RBC % (auto) 0.0 (0.0-0.2) /100WBC Sodium 135 (135-145) mmol/L Potassium 4.0 (3.3-5.1) mmol/L Chloride 93 L (96-108) mmol/L Carbon Dioxide 28 (22-29) mmol/L Anion Gap 18 (12-20) BUN 16 (9-16) mg/dL Creatinine 0.82 (0.5-1.4) mg/dL Estim Creat Clear Calc 47.0 Estimated GFR > 60 Random Glucose 126 H (60-115) mg/dL Calcium 9.8 (8.4-10.2) mg/dL Total Bilirubin 0.9 (0.0-1.0) mg/dL AST 26 (5-37) U/L ALT 11 (0-40) U/L Alkaline Phosphatase 97 (39-117) U/L Total Protein 7.4 (6.5-8.0) g/dL Albumin 4.7 (3.5-5.0) g/dL Urine Color Yellow Urine Appearance Clear Urine pH 6.0 (5.0-9.0) Ur Specific [place] <= 1.005 (1.005-1.025) Urine Protein Negative (Neg-Trace) mg/dL Urine Glucose (UA) Negative (Negative) mg/dL Urine Ketones Negative (Negative) mg/dL Urine Blood Large (3+) H (Negative) Urine Nitrite Negative (Negative) Ur Leukocyte Esterase Negative (Negative) Urine RBC >20 H (0-2) /HPF Urine WBC 0-5 (0-5) /HPF Ur Squamous Epith Cells 0-2 (0-2) /HPF Urine Bacteria None Seen (None Seen) Hyaline Casts 0-2 (0-2) /LPF Discharge Plan Discharge Clinical Impression: Acute urinary retention Patient Disposition: Home, Self-Care Instructions: Urinary Retention in Men (ED), Pacheco Catheter Placement and Care (ED) Additional Instructions: You were seen in the emergency department due to urinary retention. Your urine does not appear to be infected. We placed a Pacheco catheter. Please follow-up with the urologist, see below details for follow-up. The Pacheco catheter will be removed by the urologist when deemed appropriate. If any new or worsening symptoms occur including but not limited to fevers, chills, chest pain, shortness of breath, severe abdominal pain, please seek emergent care. [facility] will be contacting you within 2 business?days after being discharged from the Emergency?Department.? During this?phone call, they will inform you when your follow up appointment will be scheduled. If you have not received a call from [facility] after 2 business?days, please call the?office at [phone]. Prescriptions: No Action ciprofloxacin HCl 500 mg tablet 500 mg PO BID 5 Days Qty: 10 0RF Rx Instructions: Begin taking 2 days before procedure, day of procedure and for two days after procedure losartan 25 mg tablet 25 mg PO DAILY timolol maleate 0.5 % drops 1 drp ophthalmic-Left DAILY atorvastatin 20 mg tablet 20 mg PO DAILY Refresh Optive Advanced 0.5-1-0.5 % Drops 1 drp ophthalmic-Left BEDTIME furosemide [Lasix] 20 mg tablet 20 mg PO DAILY Qty: 30 0RF cefpodoxime 200 mg tablet 200 mg PO BID Qty: 10 0RF Rx Instructions: must administer with a meal/food doxycycline hyclate 100 mg capsule 100 mg PO BID Qty: 10 0RF naproxen 500 mg tablet 500 mg PO BID PRN (Reason: Pain) gabapentin 300 mg capsule 300 mg PO DAILY latanoprost 0.005 % drops 1 drp ophthalmic-Left QPM tamsulosin 0.4 mg capsule 0.8 mg PO DAILY Qty: 180 3RF finasteride 5 mg tablet 5 mg PO DAILY 30 Days Qty: 30 4RF Referrals: [facility] Services [Provider Group, Urology] Print Language: Nauruan
[2025-02-18 15:55] VITALS: BP 137/82; PULSE 106; RESP 18; O2SAT 97
[2025-02-18 17:59] LABS: Appearance Urine Clear; Glucose Urine UA Negative (Negative); PH 6.0 (5.0-9.0); Specific Gravity - Urine <= 1.005 (1.005-1.025); UMIC TRIGGER UACC YES
[2025-02-18 19:14] VITALS: BP 137/82; PULSE 94; RESP 18; TEMP 36.8; O2SAT 97
== END 2025-02-18 19:16 | disposition home or self-care (01) ==
PROVIDERS: Physician Assistant; Emergency Provider Emergency Medicine; PCP Internal Medicine Geriatric Medicine
DX: R33.9 Retention of urine, unspecified (principal); R10.9 Unspecified abdominal pain
CPT/HCPCS: 36415; 80053; 81001; 85025; 99283; 99285

== ENCOUNTER → 2025-03-06 09:29 | Outpatient (BNVA) | payer OTHER, SELFPAY | PROVIDERS: PCP Internal Medicine Geriatric Medicine; Visit Provider Urology | DX: N40.1 Benign prostatic hyperplasia with lower urinary tract symptoms (principal); N13.8 Other obstructive and reflux uropathy; N32.89 Other specified disorders of bladder; R35.1 Nocturia; R35.0 Frequency of micturition | CPT/HCPCS: 51700; 51798 ==

== ENCOUNTER 2025-03-08 18:35 | Emergency (ER) | payer OTHER, SELFPAY ==
[2025-03-08 18:42] VITALS: BP 143/70; BP 152/84; PULSE 86; PULSE 88; RESP 14; TEMP 36.9; O2SAT 94; O2SAT 99; BMI 26.9
--- NOTE | 2025-03-08 19:43 | ED.MALEGU ---
HPI - Male Genitourinary General Chief complaint: Urogenital-Male Stated complaint: unable to urinate for days, pain per EMS Time Seen by Provider: 03/08/25 18:59 Source: patient Mode of arrival: ambulatory Limitations: no limitations History of Present Illness ED Provider: Dr. Pennington HPI Narrative: This is a 74-year-old male history of urinary retention presented hospital today for urinary retention. He had a Pacheco catheter removed 4 days ago by the urology team. Complaining of distention and abdominal pain. Has over 500 cc of urine in his bladder. Patient denies any dysuria. Related Data Home Medications ?Medication ?Instructions ?Recorded ?Confirmed gabapentin 300 mg capsule 300 mg PO DAILY 06/03/23 01/23/25 latanoprost 0.005 % eye drops 1 drp ophthalmic-Left QPM 06/03/23 01/23/25 naproxen 500 mg tablet 500 mg PO BID PRN Pain 06/03/23 01/23/25 losartan 25 mg tablet 25 mg PO DAILY 07/04/23 01/23/25 atorvastatin 20 mg tablet 20 mg PO DAILY 06/27/24 01/23/25 ysvbpslpgrvytzigijahsr-clugdegn-qorndutp 1 drp ophthalmic-Left BEDTIME 06/27/24 01/23/25 80 0.5 %-1 %-0.5 % eye drops (Refresh Optive Advanced) timolol maleate 0.5 % eye drops 1 drp ophthalmic-Left DAILY 06/27/24 01/23/25 Previous Rx's ?Medication ?Instructions ?Recorded furosemide 20 mg tablet (Lasix) 20 mg PO DAILY #30 tabs 06/30/24 cefpodoxime 200 mg tablet 200 mg PO BID #10 tabs 11/14/24 doxycycline hyclate 100 mg capsule 100 mg PO BID #10 caps 11/14/24 ciprofloxacin HCl 500 mg tablet 500 mg PO BID 5 days #10 tabs 01/23/25 finasteride 5 mg tablet 5 mg PO DAILY 30 days #30 tabs 01/23/25 tamsulosin 0.4 mg capsule 0.8 mg (2 x 0.4 mg) PO DAILY #180 01/23/25 caps Allergies Allergy/AdvReac Type Severity Reaction Status Date / Time No Known Allergies Allergy Verified 03/08/25 18:43 Review of Systems Review of Systems: Pertinent review of systems as mentioned in HPI. All other system otherwise negative. [facility] Past Medical History [facility] Narrative: Urinary retention Medical History Hydrocele, bilateral Renal mass of unknown nature Pectus carinatum BPH (benign prostatic hyperplasia) Urinary retention Surgical History Hx of cystoscopy History of surgery on lower extremity H/O inguinal hernia repair Social History Social History Household Members: Spouse Housing: Apartment Do you presently have visiting nurse or other home services: No Alcohol intake: never Comment: reinforced on bed alarm Patient Tobacco Use Status: Never used Tobacco Smoked in Last 30 Days: No e-Cigarette/Vaping Use: Never Used Use of substances other than those prescribed or required for medical reasons: No Advance Directives: Yes Advance Directives on File: Yes Advance Directives Date on File: 07/08/23 Do you have a plan to hurt others: No Plan service: No Physical Exam Exam: Exam: General: Pleasant, no distress, interacting appropriately Head: Normacephalic, atraumatic ENT: oral mucosa moist, neck supple, no tracheal deviation Cardiovascular: regular rate, regular rhythm, no murmurs, rubbing, gallops Respiratory: CTAB, no wheeze, rales, rhonchi Gastrointestinal: Distended suprapubic abdomen consistent with urinary retention Neurological: Awake and alert, no facial droop noted Skin: Warm and dry Psychiatric: Appropriate mood and thoughts Vital Signs: Vital Signs: Last Vital Signs Temp 98.4 F 03/08/25 18:42 Pulse 86 03/08/25 18:42 Resp 14 03/08/25 18:42 BP 143/70 H 03/08/25 18:42 Pulse Ox 94 03/08/25 18:42 O2 Del Method Room Air 03/08/25 18:42 BMI result Body Mass Index 26.9 Medications Administered Discontinued Medications Generic Name Dose Route Start Last Admin Trade Name Freq PRN Reason Stop Dose Admin Tamsulosin HCl 0.4 mg 03/08/25 19:45 03/08/25 20:11 Tamsulosin Hcl 0.4 Mg Capsule PO 03/08/25 19:46 0.4 mg ONCE ONE Administration Medical Decision Making Medical Decision Making [facility] Narrative: 74-year-old male presenting to ER today for evaluation of urinary retention. Patient has been unable to urinate today. He stated that he has difficulty urinating. Bladder scan shows over 500 cc of urine. Pacheco catheter will be placed. Patient has no symptoms of dysuria. I do not think he has a UTI. A Pacheco catheter placed. Drain over 500 cc of urine. Patient had immediate relief. Patient appears to be well after placement Pacheco catheter. He is no longer in pain. Patient will be discharged with a Pacheco catheter and follow up with urology clinic. Differential Diagnosis Differential Diagnoses: The differential diagnosis associated with the presentation includes Urinary retention Critical Care Time Critical Care Time Total Critical Care Time: 38 Attestation: Time is exclusive of separately billable procedures. Time includes: direct patient care, patient reassessment, coordination of patient care, interpretation of data (laboratory data, pulse oximetry, arterial blood gases and chest xrays), review of patient's medical records, medical consultation and documentation of patient care. Procedures excluded from critical care time: central intravenous line placement and electrocardiography. Discharge Plan Discharge Clinical Impression: Acute urinary retention Patient Disposition: Home, Self-Care Additional Instructions: Follow up with urology clinic Prescriptions: No Action ciprofloxacin HCl 500 mg tablet 500 mg PO BID 5 Days Qty: 10 0RF Rx Instructions: Begin taking 2 days before procedure, day of procedure and for two days after procedure losartan 25 mg tablet 25 mg PO DAILY timolol maleate 0.5 % drops 1 drp ophthalmic-Left DAILY atorvastatin 20 mg tablet 20 mg PO DAILY Refresh Optive Advanced 0.5-1-0.5 % Drops 1 drp ophthalmic-Left BEDTIME furosemide [Lasix] 20 mg tablet 20 mg PO DAILY Qty: 30 0RF cefpodoxime 200 mg tablet 200 mg PO BID Qty: 10 0RF Rx Instructions: must administer with a meal/food doxycycline hyclate 100 mg capsule 100 mg PO BID Qty: 10 0RF naproxen 500 mg tablet 500 mg PO BID PRN (Reason: Pain) gabapentin 300 mg capsule 300 mg PO DAILY latanoprost 0.005 % drops 1 drp ophthalmic-Left QPM tamsulosin 0.4 mg capsule 0.8 mg PO DAILY Qty: 180 3RF finasteride 5 mg tablet 5 mg PO DAILY 30 Days Qty: 30 4RF Referrals: [facility] [Provider Group, Urology] Referral Note: Urinary Retention. Pacheco Placed 03/08/25 Print Language: Belarusian
--- NOTE | 2025-03-08 20:25 | PC.NURSE ---
pt tolerated liu insertion without difficulty at this time. 500cc output draining into liu bag. aware
--- OUTSIDE RECORDS SUMMARY | 2025-03-08 20:54 | XMS_ITS | Encounter Summary ---
Author Organization [email or web address] Address [address] [place] [address] Care Team Providers Care Autographer Name Role Phone Name, Jamie DURHAM Primary Care Provider [phone] Reason for Visit * Reason Onset Date Comments Hospital Follow-up 07/04/2024 Encounter Details Date Type Department Care Team ([facility] st Contact Info) Description 07/04/2024 Telephone [facility] [address] [place], [place] [phone] Name, MD Jamie [address] [place] [address] Hospital Follow-up Social History Tobacco Use Types [...] from pt requesting a HDF appt. [place] [facility] Date of admission: 06/28 Discharge date: 06/30 Diagnosed: pneumonia, flu *Send message to Lia Clinical Care Coordinators [phone] telugu documented in this encounter Plan of Treatment Not on file documented as of this encounter Visit Diagnoses Not on filedocumented in this encounter Additional Health Concerns Assessment Noted Time PHQ-9 Depression Total Score: 0 07/02/19 24 10:12 AM EST documented as of this encounter Care Teams Autographer Relationship Specialty Start Date End Date Name, MD Jamie [address] [place] [address] PCP - General Family Medicine 10/29/15 Lia SOFIA 07/02/24 documented as of this encounter
--- OUTSIDE RECORDS SUMMARY | 2025-03-08 20:54 | XMS_ITS | Encounter Summary ---
Author Organization [employer] Address [address] [facility] [address] [place] [address] Care Team Providers Care Cytogenetics Laboratory Manager Name Role Phone Name, Jamie DURHAM Primary Care Provider [phone] Encounter Details Date Type Department Care Team ([facility] st Contact Info) Description 06/14/2023 Abstract [facility] [address] [place], [place] [phone] Name, MD Jamie [address] [place], [place] [phone] Social History Tobacco Use Types Packs/Day Years [...] as of this encounter Plan of Treatment Not on file documented as of this encounter Visit Diagnoses Not on filedocumented in this encounter Care Teams Cytogenetics Laboratory Manager Relationship Specialty Start Date End Date Name, MD Jamie [address] [place] [address] PCP - General Family Medicine 10/29/15 Lia SOFIA 07/02/24 documented as of this encounter
--- OUTSIDE RECORDS SUMMARY | 2025-03-08 20:55 | XMS_ITS | Encounter Summary ---
Author Organization [employer] Address [address] [facility] [address] [place] [address] Care Team Providers Care Treatment Plant Operator Name Role Phone Name, Jamie DURHAM Primary Care Provider [phone] Reason for Visit * Reason Comments Med Refill Encounter Details Date Type Department Care Team ([facility] st Contact Info) Description 06/08/2024 Refill [facility] [address] [place], [place] [phone] Name, MD Jamie [address] [place] [address] Social History Tobacco Use Types Packs/Day Years [...] documented as of this encounter Care Teams Treatment Plant Operator Relationship Specialty Start Date End Date Name, MD Jamie [address] [place] [address] PCP - General Family Medicine 10/29/15 Lia Gustavo 07/02/24 documented as of this encounter
--- OUTSIDE RECORDS SUMMARY | 2025-03-08 20:55 | XMS_ITS | Encounter Summary ---
Author Organization [employer] Address [address] [facility] [address] [place] [address] Care Team Providers Care Craps Manager Name Role Phone Name, Jamie DURHAM Primary Care Provider [phone] Encounter Details Date Type Department Care Team (Late st Contact Info) Description 01/20/2025 Results Follow-Up [facility]INE [address] [place] [address] Macy Amador NP [address] [place] [address] Basic Metabolic Panel Social History Tobacco Use [...] documented as of this encounter Care Teams Craps Manager Relationship Specialty Start Date End Date Name, MD Jamie [address] [place] [id number] PCP - General Family Medicine 10/29/15 Lia SOFIA 07/02/24 documented as of this encounter
--- OUTSIDE RECORDS SUMMARY | 2025-03-08 20:55 | XMS_ITS | Clinical Summary ---
Author Organization [employer] Address [address] [place] [address] Care Team Providers Care Overnight Stocker Name Role Phone Name, Jamie DURHAM Primary Care Provider [phone] Allergies Active Allergy Reactions Criticality Noted Date [...] mild pain. 60 tablet 02/08/20 25 Active naproxen (Naprosyn) 500 MG tabletIndicati [...] THE EVENING MEAL 60 tablet 02/08/20 25 Discontinued(Re order (will not trigger notification to Pharmacy)) amoxicillin-cl avulanate (Augmentin) 875-125 MG tabletIndicati ons:Pneumonia of left lower lobe due to infectious organism Take 1 tablet by mouth 2 times daily for 7 days. 14 tablet 02/08/20 25 025 doxycycline (Vibra-Tabs) 100 MG tabletIndicati ons:Pneumonia of left lower lobe due to infectious organism Take 1 tablet (100 mg) by mouth 2 times daily for 7 days. Take with a full glass of water and do not lie down for at least 30 minutes after. 14 tablet 02/08/20 25 025 Active Problems Problem Noted Date Diagnosed Date Chronic heart failure with p reserved ejection fraction (HFpEF) 03/02/2025 Pneumonia 11/23/2024 Acute retention of urine 09/15/2023 Hydrocele, bilateral 07/02/2023 Renal mass of unknown nature 07/02/2023 Adrenal adenoma, left 07/02/2023 Overview (07/02/2023): 1.5 left adrenal incidentiloma (found on CT ordered by urology for renal stones). Blood work normal including screening for subclinical [place] and 24 urine metanephrines. His MRI was inconclusive since the patient has severe scoliosis and imaging did not allow for adrenal evaluation. 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 Diastolic He collado normal EF on numerous ECHOs Deep right inguinal pain 07/02/2023 Edema of lower extremity 12/16/2017 Dysuria 06/02/2017 03/13/2023 Microscopic hematuria 06/02/20172023 Mean red blood cell volume increased 03/02/2017 07/02/2023 Diverticulitis of sigmoid colon 09/10/2016 09/15/2023 Overview (03/13/2023): One episode uncomplicated at [facility] 09/2016 Normal colonoscopy the same year Repeat colonoscopy recommended in 10 years Cervical radiculitis 03/18/2012 024 Cervical spinal stenosis 03/18/2012 Neck pain 03/18/2012 03/13/2023 Low back pain 09/24/2009 07/02/2023 Scoliosis 09/24/2009 08/19/2024 Groin pain 09/24/2009 03/13/2023 Neuropathic pain syndrome (non-herpetic) 09/24/2009 03/13/2023 Encounters Date Type Department Care Team Description 03/02/2025 10:30 AM EDT Office Visit [facility] MEDICINE [address] [place] [phone] Jamie Garcia MD VALDOVINOS (dyspnea on exertion) (Primary Dx); Chronic heart failure with preserved ejection fraction (HFpEF) (HCC); Sore throat; Benign prostatic hyperplasia (BPH) with straining on urination; Acute retention of urine; Pacheco catheter in place; Vaccine refused by patient 03/02/2025 Travel 03/01/2025 Telephone [facility] CHC MED & PEDS [address] [place] [address] Jamie Garcia MD Chart Prep 02/18/2025 Orders Only GENERIC EXTERNAL DATA DEPARTMENT Provider, Generic External Data 02/16/2025 Telephone [facility] MEDICINE [address] [place] [phone] Codey Lewis [place] Referral 02/07/2025 2:20 PM EDT Office Visit [facility] WALK-IN CENTER [address] [place] [address] [phone] Salud Shaw MD Viral syndrome (Primary Dx); Subjective fever; Cough, unspecified type; Back pain, unspecified back location, unspecified back pain laterality, unspecified chronicity 02/07/2025 Results Follow-Up [address] [address] Salud Shaw MD XR Chest 2 Views 02/07/2025 Orders Only [facility] [place] [address] Salud Shaw MD Pneumonia of left lower lobe due to infectious organism (Primary Dx) 02/07/2025 Travel 02/04/[address] [address] Jamie Garcia MD Back pain, unspecified back location, unspecified back pain laterality, unspecified chronicity 01/23/2025 Orders Only GENERIC EXTERNAL DATA DEPARTMENT Provider, Generic External Data 01/20/2025 Results Follow-Up [address] [address] Macy Amador NP Basic Metabolic Panel 01/12/2025 Orders Only [address] [address] Macy Amador NP 12/26/[address] [address] Jamie Garcia MD 12/07/2024 9:45 AM EDT Office Visit [address] [address] Jamie Garcia MD Scoliosis of lumbosacral spine, unspecified scoliosis type (Primary Dx); Back pain, unspecified back location, unspecified back pain laterality, unspecified chronicity; Essential hypertension; History of pneumonia; Decreased hearing of both ears; Hearing aid worn 12/07/2024 Travel from Last 3 Months Immunizations Immunization Administration [...] Sign Reading Time Taken Comments Blood Pressure 124/62 03/02/2025 10:29 AM EDT Pulse 84 03/02/2025 10:29 AM EDT Temperature 35.8 C (96.4 F) 03/02/2025 10:29 AM EDT Respiratory Rate 12 03/02/2025 10:29 AM EDT Oxygen Saturation 94% 03/02/2025 10:29 AM EDT Inhaled Oxygen Concentration - - Weight 42.3 kg (93 lb 3.2 oz) 03/02/2025 10:29 A M EDT Height 127 cm (4' 2 ) 03/02/2025 10:29 AM EDT Body Mass Index 26.21 03/02/2025 10:29 AM EDT Plan of Treatment Health Maintenance Due Date Last Done Comments [...] 08/20/2025 08/20/19, 04/21/2019, 08/24/2018, Additional history exists DTaP/Tdap/Td Vaccines (2 - Td or Tdap) 02/04/2026 02/05/2016 Tobacco Screening 03/02/2026 03/02/2025 Colonoscopy 11/17/2026 11/17/2016, 11/07/2016 Colorectal Cancer Screening [...] Procedure Name Priority Date/Time Associated Diagnosis Comments POC KUMAR ID NOW STREP A Routine 03/02/2025 10:48 AM EDT Sore throat POCT INFLUENZA B Routine 03/02/2025 10:4 8 AM EDT Sore throat POCT INFLUENZA A Routine 03/02/2025 10:4 8 AM EDT Sore throat POCT RAPID COVID ANTIGEN Routine 03/02/2025 10:48 AM EDT Sore throat URINALYSIS, COMPLETE, WITH REFLEX TO CULTURE Routine 02/18/2025 5:45 PM EDT COMPREHENSIVE METABOLIC PANEL Routine 02/18/2025 2:46 PM EDT CBC WITH AUTO DIFFERENTIAL Routine 02/18/2025 2:46 PM EDT XR CHEST 2 VIEWS Routine 02/07/2025 3:50 PM EDT Subjective fever Cough, unspecified type POCT INFLUENZA B (ID NOW RAPID MOLECULAR) Routine 02/07/2025 2:45 PM EDT Viral syndrome POCT INFLUENZA A (ID NOW RAPID MOLECULAR) Routine 02/07/2025 2:45 PM EDT Viral syndrome POCT RAPID COVID ANTIGEN Routine 02/07/2025 2:45 PM EDT Viral syndrome CULTURE, URINE, ROUTINE Routine 02/07/2025 2:00 PM EDT Back pain, unspecified back location, unspecified back pain laterality, unspecified chronicity CYTOPATH-CELL ENHANCED Routine 01/23/2025 5:31 PM EDT PSA, FREE AND TOTAL Routine 01/12/2025 1 1:57 AM EDT PSA, TOTAL WITH REFLEX TO PSA, FREE Routine 01/12/2025 9:41 AM EDT BASIC METABOLIC PANEL Routine 01/12/2025 9:41 AM EDT PROPHYLAXIS - ADULT Routine 08/19/2024 1 [...] Recently Relevant to Health Maintenance Results * POCT Rapid Strep A KUMAR ID NOW (03/02/2025 10:48 AM EDT) [facility] Rapid Strep A Screen Negative Negative, None Detected QC Media Lot # [id number] Lot# Expiration Date 12,526 Swab 03/02/2025 10:4 8 AM EDT us Jamie Garcia MD POINT OF CARE TEST ENTER/EDIT OR DERABLES Final Result * POCT Rapid Covid-19 BinaxNOW (03/02/2025 10:48 AM EDT) Only the most recent of2 resultswithin the time period is included. [facility] Rapid COVID Ag Negative QC Media Lot # [id number] Lot# Expiration Date 63,026 Swab 03/02/2025 10:4 8 AM EDT Jamie Garcia MD POINT OF CARE TEST ENTER/EDIT OR DERABLES Final Result * POCT Rapid Influenza B OSOM (03/02/2025 10:48 AM EDT) [facility] Rapid Influenza B Ag Negative Negative, Indeterminate QC Media Lot # [id number] Lot# Expiration Date Swab 03/02/2025 10:4 8 AM EDT Jamie Garcia MD POINT OF CARE TEST ENTER/EDIT OR DERABLES Final Result * POCT Rapid Influenza A OSOM (03/02/2025 10:48 AM EDT) [facility] Rapid Influenza A Ag Negative Negative, Indeterminate QC Media Lot # [id number] Lot# Expiration Date Swab Nasopharyngeal structure / Unknown 03/02/2025 10:48 AM EDT Jamie Garcia MD POINT OF CARE TEST ENTER/EDIT OR DERABLES Final Result * (ABNORMAL) Urinalysis, Complete, with Reflex to Culture (02/18/2025 5:45 PM EDT) [facility] Color Urine Yellow [facility] Appearance Urine Clear [facility] PH 6.0 5.0 - 9.0 [facility] Glucose Urine UA Negative Negative mg/dL [facility] Urine Blood Large (3+)(A) Negative [facility] Specific Emerson - Urine <=1.005 1.005 - 1.025 [facility] Urine Protein Negative Neg-Trace mg/dL [facility] Urine Ketones Negative Negative mg/dL [facility] Nitrite Urine Negative Negative [facility] Leukocyte Esterase Urine Negative Negative [facility] RBC Urine >20(A) 0 - 2 /HPF [facility] Urine WBC 0-5 0 - 5 /HPF [facility] Urine Squamous Epithelial Cell 0-2 0 - 2 /HPF [facility] Urine Bacteria None Seen None Seen [facility] Hyaline Casts, Urine 0-2 0 - 2 /LPF [facility] 02/18/2025 5:45 PM EDT 02/18/2025 5:50 PM EDT Narrative [facility] - 02/18/2025 6:06 PM EDT Urine, [place] us Generic External Data Provider LAB URINE ORDERAB LES Final Result [facility] [address] [place] [phone] * (ABNORMAL) CBC auto differential (02/18/2025 2:46 PM EDT) White Blood Count 6.6 4.8 - 10.8 X10*3/uL [facility] Red Blood Count 4.85 4.60 - 5.80 X10*6/uL [facility] Hemoglobin 15.5 14.0 - 18.0 g/dl [facility] Hematocrit 44.7 42.0 - 52.0 % [facility] Mean Corpuscular Volume 92.2 80.0 - 98.0 fL [facility] Mean Corpuscular Hemoglobin 32.0 27.0 - 33.0 pg [facility] Mean Corpuscular HGB Conc 34.7 31.0 - 36.0 g/dl [facility] Red Cell Distribution Width 12.0 11.0 - 16.0 % [facility] Platelet Count 150(L) 160 - 400 X10*3/uL [facility] Mean Platelet Volume 9.4 9.4 - 12.4 fL [facility] Neutrophils Percent Auto 70.7 45 - 73 % [facility] Imm Gran Pct Auto 0.3 0.0 - 0.4 % [facility] Lymphocytes Percent Auto 21.9 20 - 40 % [facility] Monocytes Percent Auto 6.4 2 - 11 % [facility] Eosinophils Percent Auto 0.5 0 - 4 % [facility] Basophils Percent Auto 0.2 0 - 2 % [facility] NRBC Pct Auto 0.0 0.0 - 0.2 /100WBC [facility] Neutrophils Absolute Auto 4.7 2.0 - 8.3 x10*3/uL [facility] Imm Gran Abs Auto 0.02 0.00 - 0.03 X10*3/uL [facility] Lymphocytes Absolute Auto 1.4 1.2 - 4.9 X10*3/uL [facility] Monocytes Absolute Auto 0.4 0.1 - 1.2 X10*3/uL [facility] Eosinophils Absolute Auto 0.0 0.0 - 0.4 X10*3/uL [facility] Basophils Absolute Auto 0.0 0.0 - 0.2 X10*3/uL [facility] NRBC Abs Auto 0.000 0.0 - 0.012 X10*3/uL [facility] 02/18/2025 2:46 PM EDT 02/18/2025 2:48 PM EDT us Generic External Data Provider LAB BLOOD ORDERAB LES Final Result [facility] [address] [place] [phone] * (ABNORMAL) Comprehensive Metabolic Panel (02/18/2025 2:46 PM EDT) Sodium 135 135 - 145 mmol/L [facility] Potassium 4.0 3.3 - 5.1 mmol/L [facility] Chloride 93(L) 96 - 108 mmol/L [facility] Carbon Dioxide 28 22 - 29 mmol/L [facility] Anion Gap 18 12 - 20 [facility] Urea Nitrogen (BUN) 16 9 - 16 mg/dL [facility] Creatinine, Serum 0.82 0.5 - 1.4 mg/dL [facility] Creatinine Clr Calc Pharmacy 47.0 [facility] Comment:eGFR (calculated fro m the MDRD study equation) and eCrCl(calculated from the Cockcroft-Gault equation) are based ondifferent parameters and may not yield comparable results.If eCrCl result is absurd, please check patient'sheight/weight. Estimated Glomerular Filt Rate >60 [facility] Comment:Chronic Kidney Disea se: Estimated GFR < 60 mL/min/1.23e3Jmnfhj Kidney Disease: Estimated GFR < 15 mL/min/1.73m2 Glucose 126(H) 60 - 115 mg/dL [facility] Calcium 9.8 8.4 - 10.2 mg/dL [facility] Bilirubin, Total 0.9 0.0 - 1.0 mg/dL [facility] Aspartate Amino Transferase 26 5 - 37 U/L [facility] Alanine Aminotransferase 11 0 - 40 U/L [facility] Total Protein 7.4 6.5 - 8.0 g/dL [facility] Albumin Level 4.7 3.5 - 5.0 g/dL [facility] Alkaline Phosphatase 97 39 - 117 U/L [facility] 02/18/2025 2:46 PM EDT 02/18/2025 2:48 PM EDT us Generic External Data Provider LAB BLOOD ORDERAB LES Final Result Performing Organization Address City/State/[facility] Co de Phone Number [facility] [address] [place] [phone] * XR Chest 2 Views (02/07/2025 3:50 PM EDT) Anatomical Region Laterality Modality Chest Radiographic Iliana ging 02/07/2025 3:50 PM EDT Narrative 02/07/2025 4:09 PM EDT [address] [address] XRay Report Signed Patient: Ifeanyi White MR#: [id number] : 1950 Acct:[id number] Age/Sex: 74 / M ADM Date: 02/07/25 Loc: HO.HHCX Attending Dr: Salud Davis MD Ordering Physician: Salud Shaw MD Date of Service: 02/07/25 Procedure(s): XR chest 2V Accession Number(s): [id number] cc: Salud Shaw MD Reason for Exam: [...] 02/07/25 1606 DD/ 1550 TD/TT: 02/07/25 1558 Product Examiner: Procedure Note Donotuseinterpreter, Image - 02/07/[address] [address] XRay Report Signed Patient: Ifeanyi White AMR#: [id number] : 1950cct:[id number] Age/Sex: 74 / MADM Date: 02/07/25 Loc: HO.HHCX Attending Dr: Salud Davis MD Ordering Physician: Salud Shaw MD Date of Service: 02/07/25 Procedure(s): XR chest 2V Accession Number(s): [id number] cc: Salud Shaw MD Reason for Exam: [...] 02/07/25 1606 DD/ 1550 TD/TT: 02/07/25 1558 Product Examiner: us Salud Davis MD IMG XR PROCEDURES Fin al Result * POCT Rapid Influenza B KUMAR ID NOW (02/07/2025 2:45 PM EDT) Influenza B Negative Negative, Indeterminate [facility] QC Media Lot # [id number] [facility] Lot# Expiration Date 12,426 [facility] Swab 02/07/2025 2:45 PM EDT us Salud Davis MD POINT OF CARE TEST EN TER/EDIT ORDERABLES Final Result Performing Organization Address [facility] Co de Phone Number [facility] [address] [place] [phone] * POCT Rapid Influenza A KUMAR ID NOW (02/07/2025 2:45 PM EDT) Influenza A Negative Negative, Indeterminate [facility] QC Media Lot # [id number] [facility] Lot# Expiration Date [facility] Swab 02/07/2025 2:4 5 PM EDT us Salud Davis MD POINT OF CARE TEST EN TER/EDIT ORDERABLES Final Result Performing Organization Address [facility] de Phone Number [facility] [address] [place] [phone] * Culture, Urine, Routine (02/07/2025 2:00 PM EDT) Urine Urine specimen obtained by clean catch procedure / Unknown 02/07/2025 2:00 PM EDT 02/08/2025 11:54 AM EDT Comment:UACC Narrative [facility] - 02/09/2025 9:36 AM EDT Urine Culture No growth. Specimen Source: Urine clean catch us Salud Davis MD LAB MICROBIOLOGY - GE NERAL ORDERABLES Final Result Performing Organization Address [facility] Co de Phone Number [facility] [address] [place] [phone] * Cytopath-cell enhanced (01/23/2025 5:31 PM EDT) 01/23/2025 5:31 PM EDT 01/24/2025 9:00 AM EDT [facility] - 01/24/2025 2:40 PM EDT ----- ------- Name: Ifeanyi White Age/Sex: 74/M : 1950 Unit#: [id number] Attend Dr: Rhonda Castañeda MD Re01/23/25 Status: DEP [facility] Disch: ----- ------- SPEC : [id number] RECD: 01/24/25 STATUS: ALTAF CROFT NUM: [id number] DANN: 01/23/25 [facility] DR: Rhonda Castañeda MD ENTERED: 01/24/25 SP TYPE: Cytology OTHR DR: Jamie Garcia MD ORDERED: Cyto-enhanced Diagnosis [...] developed and their performance characteristics determined by [facility]. They have not been cleared or approved by the U.S. Food and Drug Administration (FDA). However, the FDA has determined that such clearance or approval is not necessary. This laboratory is certified under the Clinical Laboratory Improvement Amendments of 1988 (CLIA) as qualified to perform high complexity clinical laboratory testing. Copies To: Rhonda Castañeda MD [facility] [address] [place] [address] Dr. [address] [place] [address] [email or web address] Name,Jamie DURHAM [address] [address] CONTINUED ON NEXT PAGE ----- ------- Name: Ifeanyi White Age/Sex: 74/M : 1950 Unit#: [id number] Attend Dr: Rhonda Castañeda MD Re01/23/25 Status: [facility] Disch: ----- ------- SPEC : [id number] RECD: 01/24/25 STATUS: ALTAF CROFT NUM: [id number] DANN: 01/23/25-1730 [facility] DR: Rhonda Castañeda MD ENTERED: 01/24/25 SP TYPE: Cytology OTHR DR: Jamie Garcia MD ORDERED: Cyto-enhanced ----- ------- Signed (signature on file) Rafael Greene MD 01/24/25 1440 ----- ------- END OF REPORT us Generic External Data Provider LAB CYTOLOGY SANGEETHA ZARATE Final Result [facility] [address] [place] [phone] * (ABNORMAL) PSA, Free and Total (01/12/2025 11:57 AM EDT) PSA, Total 8.1(A) < OR = 4.0 ng/mL [facility] PSA % Free 21(A) >25 % (calc) [facility] Comment: PSA(ng/mL) Free PSA(%) Estimated(x) Probability of Cancer(as%)0-2.5 (*) Approx. 12.6-4.0(1) 0-27(2) 24(3)4.1-10(4) 0-10 56 11-15 28 16-20 20 21-25 16 >or =26 8>10(+) N/A >50References:(1)Chantel et al.:Urology 60: 469-474 (2002) (2)Chantel et al.:J.Urol 168: 922-925 (2002) Free PSA(%) Sensitivity(%) Specificity(%) < or = 25 85 19 < or = 30 93 9 (3)Chantel et al.:JEAN 277: 2818-5089 (1997) (4)Chantel et al.:JEAN 279: 4160-5664 (1998)(x)These estimates vary with age, ethnicity, family history [...] presence or absence ofdisease.THIS TEST WAS PERFORMED AT:[employer] [place] [phone] OSUNA MD PSA, Free 1.7 ng/mL [facility] 01/12/2025 11:5 7 AM EDT 01/12/2025 11:57 AM EDT Generic External Data Provider LAB BLOOD ORDERAB LES Final Result [facility] [address] [place] [phone] * (ABNORMAL) PSA, Total With Reflex to PSA, Free (01/12/2025 9:41 AM EDT) PSA,Total (Free>4and<10) 8.19(H) 0.00 - 4.00 ng/mL [facility] Comment:PSA methodology: Dora puri Alinubia i ChemiluminescentMicroparticle Immunoassay (CMIA) 01/12/2025 9:41 AM EDT 01/12/2025 9:41 AM EDT us Generic External Data Provider LAB BLOOD ORDERAB LES Final Result Performing Organization Address [facility] Co de Phone Number [facility] [address] [place] [phone] * (ABNORMAL) Basic Metabolic Panel (01/12/2025 9:41 AM EDT) Sodium 140 135 - 145 mmol/L [facility] Potassium 4.0 3.3 - 5.1 mmol/L [facility] Chloride 99 96 - 108 mmol/L [facility] Carbon Dioxide 31(H) 22 - 29 mmol/L [facility] Anion Gap 14 12 - 20 [facility] Urea Nitrogen (BUN) 15 9 - 16 mg/dL [facility] Creatinine, Serum 0.65 0.5 - 1.4 mg/dL [facility] Estimated Glomerular Filt Rate >60 [facility] Comment:Chronic Kidney Disea se: Estimated GFR < 60 mL/min/1.12h1Eojbqy Kidney Disease: Estimated GFR < 15 mL/min/1.73m2 Glucose 86 60 - 115 mg/dL [facility] Calcium 9.6 8.4 - 10.2 mg/dL [facility] 01/12/2025 9:41 AM EDT 01/12/2025 9:41 AM EDT us Macy Amador [employer] LAB BLOOD ORDERABLES Final Resu lt Performing Organization Address [facility]/ZIP Co de Phone Number [facility] [address] [place] [phone] * Lipid Panel, Standard (04/11/2022 9:26 AM EST) Cholesterol, Total 149 <200 mg/dL [facility] HDL Cholesterol 86 > OR = 40 mg/dL [facility] Triglycerides 54 <150 mg/dL [facility] LDL Cholesterol 50 mg/dL (calc) [facility] Comment: Reference range: <100 Desirable range <100 mg/dL for primary prevention; <70 mg/dL for patients with CHD or diabetic patients with > or = 2 CHD risk factors. LDL-C is now calculated using the Eliza calculation, which is a validated novel method providing better accuracy than the Friedewald equation in the estimation of LDL-C. Fredy SALAMANCA et al. JEAN. 2013;310(19): 9541-6376 (http://education.[employer])/faq/RCE291) Chol/HDLC Ratio 1.7 <5.0 (calc) [email or web address] Non-HDL Cholesterol 63 <130 mg/dL (calc) [email or web address] Comment: For patients with diabetes plus 1 major ASCVD risk factor, treating to a non-HDL-C goal of <100 mg/dL (LDL-C of <70 mg/dL) is considered a therapeutic option. Blood Venous blood specimen / Unknown 04/11/2022 9:26 AM EST 04/11/2022 9:26 AM EST Narrative [facility] - 04/11/2022 9:46 PM EST FASTING:YES FASTING: YES Jamie Name LAB BLOOD ORDERABLES Final Resul t [facility] [address] [place] [phone] [facility] [address], [facility] [place] [address] * Hm Colonoscopy (11/17/2016 12:06 PM EDT) Colonoscopy Normal Normal Narrative Maria Esther Zhao - 11/17/2016 12:06 PM EDT Recommended 10 years follow up [facility] Provider HEALTH MAINTENANCE Final Result from Last 3 Months or Most Recently Relevant to Health Maintenance Insurance [facility] STANDARD [facility] [employer] (HMO [employer]) [facility] Care Teams Overnight Stocker Relationship Specialty Start Date End Date Name, MD Jamie [address] [place] [address] PCP - General Family Medicine 10/29/15 [facility]02[facility]
--- OUTSIDE RECORDS SUMMARY | 2025-03-08 20:55 | XMS_ITS | Encounter Summary ---
Author Organization [employer] Address [address] [facility] 7t [place] [address] Care Team Providers Care Division Service Manager Name Role Phone Name, Jamie DURHAM Primary Care Provider [phone] Encounter Details Date Type Department Care Team (Latest Contact Info) Description 08/24/2018 Abstract [facility] CONVERSIONS Dental, Provider, DDS Social History [...] on filedocumented in this encounter Care Teams Division Service Manager Relationship Specialty Start Date End Date Name, MD Jamie [address] [place] [id number] PCP - General Family Medicine 10/29/15 [facility] 07/02/24 documented as of this encounter
--- OUTSIDE RECORDS SUMMARY | 2025-03-08 20:55 | XMS_ITS | Encounter Summary ---
Author Organization [employer] Address [address] [facility] 7t [place] [address] Care Team Providers Care Saw Man Name Role Phone Name, Jamie DURHAM Primary Care Provider [phone] Reason for Visit * Reason Comments Med Refill Encounter Details Date Type Department Care Team ([facility] st Contact Info) Description 10/12/2023 Refill [facility] MEDICINE [address] [place], [place] [phone] Name, MD Jamie [address] [place] [address] Social History Tobacco Use Types Packs/Day Years [...] documented as of this encounter Care Teams Saw Man Relationship Specialty Start Date End Date Name, MD Jamie [address] [place] [address] PCP - General Family Medicine 10/29/15 [facility] 07/02/24 documented as of this encounter
--- OUTSIDE RECORDS SUMMARY | 2025-03-08 20:55 | XMS_ITS | Encounter Summary ---
Author Organization [employer] Address [address] [facility] 7t [place] [address] Care Team Providers Care Commercial Pest Control Representative Name Role Phone Name, Jamie DURHAM Primary Care Provider [phone] Reason for Visit * Reason Comments Med Refill Encounter Details Date Type Department Care Team ([facility] st Contact Info) Description 08/10/2023 Refill [facility] MEDICINE [address] [place], [place] [phone] Name, MD Jamie [address] [place] [address] Social History Tobacco Use Types Packs/Day Years [...] documented as of this encounter Care Teams Commercial Pest Control Representative Relationship Specialty Start Date End Date Name, MD Jamie [address] [place] [address] PCP - General Family Medicine 10/29/15 [facility] 07/02/24 documented as of this encounter
--- OUTSIDE RECORDS SUMMARY | 2025-03-08 20:55 | XMS_ITS | Encounter Summary ---
Author Organization [employer] Address [address] [facility] 7t [place] [address] Care Team Providers Care Records Manager Name Role Phone Name, Jamie DURHAM Primary Care Provider Encounter Details Date Type Department Care Team ([facility] st Contact Info) Description 08/26/2023 Telephone [facility] MEDICINE [address] [place], [place] [phone] Name, MD Jamie [address] [place] [address] Social History Tobacco Use Types Packs/Day Years [...] documented as of this encounter Care Teams Records Manager Relationship Specialty Start Date End Date Name, MD Jamie [address] [place] [address] PCP - General Family Medicine 10/29/15 [facility] 07/02/24 documented as of this encounter
--- OUTSIDE RECORDS SUMMARY | 2025-03-08 20:55 | XMS_ITS | Encounter Summary ---
Author Organization [employer] Address [address] [place] [address] 7t [place] [address] Care Team Providers Care Website Programmer Name Role Phone Name, Jamie DURHAM Primary Care Provider [phone] Encounter Details Date Type Department Care Team ([facility] st Contact Info) Description 10/03/2022 Abstract [facility] MEDICINE [address] [place], [place] [phone] Name, MD Jamie [address] [place] [address] Social History Tobacco Use Types Packs/Day Years [...] on file documented as of this encounter Procedures Procedure Name Priority Date/Time Associated Diagnosis Comments COLONOSCOPY Routine 11/17/2016 12:06 PM EDT documented in this encounter Results * Colonoscopy (11/17/2016 12:06 PM EDT) Colonoscopy Normal Normal Narrative Cece Maria Esther - 11/17/2016 12:06 PM EDT Recommended 10 years follow up us Historical Provider HEALTH MAINTENANCE Final Result documented in this encounter Visit Diagnoses Not on filedocumented in this encounter Care Teams Website Programmer Relationship Specialty Start Date End Date Name, MD Jamie [address] [place] [address] PCP - General Family Medicine 10/29/15 [facility] 07/02/24 documented as of this encounter
[2025-03-08 21:59] VITALS: BP 143/70; PULSE 86; RESP 14; TEMP 36.9; O2SAT 94
== END 2025-03-08 22:01 | disposition home or self-care (01) ==
PROVIDERS: Emergency Provider Student in an Organized Health Care Education/Training Program; PCP Internal Medicine Geriatric Medicine
DX: R33.9 Retention of urine, unspecified (principal); R10.9 Unspecified abdominal pain; R14.0 Abdominal distension (gaseous)
CPT/HCPCS: 99283; 99284

== ENCOUNTER 2025-04-03 08:14 | Outpatient (AMB) | payer OTHER, SELFPAY ==
--- NOTE | 2025-04-03 08:25 | AM.OFFVISNUR ---
Intake Visit Reasons: VT Allergies No Known Allergies Allergy (Verified 03/08/25 18:43) Office Procedures Bladder/Catheter Procedure Details: Patient presents to office with for repeat VT s/p urinary retention after last VT in office. insulation cupola operator [id number] used for visit. 120mls sterile water instilled through catheter, patient tolerated well. Removed 18 fr liu catheter, patient tolerated removal well. Patient able to void approximately 120mls. Bladder scanned for 54mls. Patient educated to drink plenty of water to ensure urine production throughout day. If patient has any issues with urination or cannot void to call office by 2pm. Educated patient that he should call office even if it one day after that he has trouble voiding so that he can avoid going to the ER and be seen in office. Patient stated he understood. Patient to schedule follow up in 6 weeks with provider. [id number] of Bladder Procedure code (CPT) selection complete Post Void Residual Post Residual Void Post Void Residual (PVR): 54 [id number] Void Residual by ultrasound Assessment & Plan Assessment & Plan Orders: Orders AMB Bladder/Catheter Procedure Today N40.1 - Benign prostatic hyperplasia with lower urinary tract symptoms AMB Post Void Residual by ultrasound Today N40.1 - Benign prostatic hyperplasia with lower urinary tract symptoms Coding CPT Codes Bladder/Catheter Procedure - CPT: 21881-[id number] of Bladder ([id number]) Post Residual Void - PVR CPT Code: 44249-Gsjj Void Residual by ultrasound ([id number])
--- OUTSIDE RECORDS SUMMARY | 2025-04-03 08:25 | XMS_ITS | Encounter Summary ---
Author Organization [employer] Address [address] [facility] 7t [place] [address] Care Team Providers Care Spinner Continuous Name Role Phone Name, Jamie DURHAM Primary Care Provider [phone] Reason for Visit * Reason Comments Med Refill Encounter Details Date Type Department Care Team ([facility] st Contact Info) Description 10/12/2023 Refill [facility] MEDICINE [address] [place], [place] [phone] Name, MD Jamie [address] [place] [address] Social History Tobacco Use Types Packs/Day Years [...] documented as of this encounter Care Teams Spinner Continuous Relationship Specialty Start Date End Date Name, MD Jamie [address] [place] [address] PCP - General Family Medicine 10/29/15 [facility] 07/02/24 documented as of this encounter
--- OUTSIDE RECORDS SUMMARY | 2025-04-03 08:25 | XMS_ITS | Encounter Summary ---
Author Organization [employer] Address [address] [facility] 7t [place] [address] Care Team Providers Care Fitting Room Checker Name Role Phone Name, Jamie DURHAM Primary Care Provider [phone] Reason for Visit * Reason Comments Med Refill Encounter Details Date Type Department Care Team ([facility] st Contact Info) Description 08/10/2023 Refill [facility] MEDICINE [address] [place], [place] [phone] Name, MD Jamie [address] [place] [address] Social History Tobacco Use Types Packs/Day Years [...] documented as of this encounter Care Teams Fitting Room Checker Relationship Specialty Start Date End Date Name, MD Jamie [address] [place] [address] PCP - General Family Medicine 10/29/15 [facility] 07/02/24 documented as of this encounter
--- OUTSIDE RECORDS SUMMARY | 2025-04-03 08:25 | XMS_ITS | Encounter Summary ---
Author Organization [employer] Address [address] [facility] 7t [place] [address] Care Team Providers Care Sales Property Manager Name Role Phone Name, Jamie DURHAM Primary Care Provider [phone] Encounter Details Date Type Department Care Team ([facility] st Contact Info) Description 06/14/2023 Abstract [facility] MEDICINE [address] [place], [place] [phone] Name, MD Jamie [address] [place], [place] [phone] Social History Tobacco Use Types Packs/Day Years [...] on filedocumented in this encounter Care Teams Sales Property Manager Relationship Specialty Start Date End Date Name, MD Jamie [address] [place] [address] PCP - General Family Medicine 10/29/15 [facility] 07/02/24 documented as of this encounter
--- OUTSIDE RECORDS SUMMARY | 2025-04-03 08:25 | XMS_ITS | Encounter Summary ---
Author Organization [employer] Address [address] [facility] 7t [place] [address] Care Team Providers Care Integration Director Name Role Phone Name, Jamie DURHAM Primary Care Provider [phone] Reason for Visit * Reason Onset Date Comments Hospital Follow-up 07/04/2024 Encounter Details Date Type Department Care Team ([facility] st Contact Info) Description 07/04/[address] [facility] MEDICINE [address] [place], [place] [phone] Name, MD Jamie [address] [place] [address] Hospital Follow-up Social History Tobacco Use Types [...] from pt requesting a HDF appt. [place] [facility] [place] Date of admission: 06/28 Discharge date: 06/30 Diagnosed: pneumonia, flu *Send message to [facility] Clinical Care Coordinators [phone] maltese documented in this encounter Plan of Treatment Not on file documented as of this encounter Visit Diagnoses Not on filedocumented in this encounter Additional Health Concerns Assessment Noted Time PHQ-9 Depression Total Score: 0 07/02/19 24 10:12 AM EST documented as of this encounter Care Teams Integration Director Relationship Specialty Start Date End Date Name, MD Jamie [address] [place] [address] PCP - General Family Medicine 10/29/15 [facility] 07/02/24 documented as of this encounter
--- OUTSIDE RECORDS SUMMARY | 2025-04-03 08:25 | XMS_ITS | Encounter Summary ---
Author Organization [facility] Address [address] [facility] 7t [place] [address] Care Team Providers Care Porter Luggage Name Role Phone Name, Jamie DURHAM Primary Care Provider [phone] Encounter Details Date Type Department Care Team ([facility] st Contact Info) Description 08/26/2023 Telephone [facility] MEDICINE 230 [place], [place] [phone] Name, MD Jamie [address] [place] [address] Social History Tobacco Use Types Packs/Day Years [...] documented as of this encounter Care Teams Porter Luggage Relationship Specialty Start Date End Date Name, MD Jamie [address] [place] [address] PCP - General Family Medicine 10/29/15 [facility] 07/02/24 documented as of this encounter
--- OUTSIDE RECORDS SUMMARY | 2025-04-03 08:26 | XMS_ITS | Clinical Summary ---
Author Organization [employer] Address [address] [facility] [address] [place] [address] Care Team Providers Care Personal Injury Law Specialist Name Role Phone Name, Jamie DURHAM Primary Care Provider [phone] Allergies Active Allergy Reactions Criticality Noted Date [...] per day. Active atorvastatin (Lipitor) 20 MG tabletIndication s:Scrotal pain,Hydrocele in adult TAKE 1 TABLET(20 MG) BY MOUTH IN THE MORNING 90 tablet 4 Active losartan (Cozaar) 50 MG tablet [...] by mouth Once per day. 4 Active tamsulosin (Flomax) 0.4 MG 24 hr capsule TAKE 2 CAPSULES BY MOUTH EVERY DAY 30 MINUTES AFTER THE SAME MEAL 180 capsule 1 5 Active cetirizine (ZyrTEC) 10 MG tablet Take 1 tablet (10 mg) by mouth Once per day. 30 tablet 3 5 10/14/19 26 Active fluticasone (Flonase) 50 MCG/ACT nasal spray Administer 2 sprays into each nostril Once per day. Shake gently. Before first use, prime pump. After use, clean tip and replace cap. 16 g 3 5 10/14/19 26 Active gabapentin (Neurontin) 300 MG capsule TAKE 1 CAPSULE(300 MG) BY MOUTH THREE TIMES DAILY 84 capsule 2 5 Active naproxen (Naprosyn) 500 MG tabletIndication s:Back pain, unspecified back location, unspecified back pain laterality, unspecified chronicity Take 1 tablet (500 mg) by mouth every 12 (twelve) hours if needed for mild pain. 60 tablet 5 Active Active Problems Problem Noted Date Diagnosed Date Chronic heart failure with p reserved ejection fraction (HFpEF) 03/02/2025 Pneumonia 11/23/2024 Acute retention of urine 09/15/2023 Hydrocele, bilateral 07/02/2023 Renal mass of unknown nature 07/02/2023 Adrenal adenoma, left 07/02/2023 Overview (07/02/2023): 1.5 left adrenal incidentiloma (found on CT ordered by urology for renal stones). Blood work normal including screening for subclinical [place] and 24 urine metanephrines. His MRI was inconclusive since the patient has severe scoliosis and imaging did not allow for adrenal evaluation. Mild intermittent asthma without complication History of inguinal hernia repair, bilateral 02/2023 Essential hypertension 06/07/2018 Benign prostatic hyperplasia (BPH) with straining on urination 02/17/2018 Candidal intertrigo 10/16/2017 Urinary bladder stone 10/16/2017 Kidney stone 10/09/2017 Overview (09/15/2023): He follows with [facility] Has renal stones BPH Benign non [...] 09/15/2023 Overview (03/13/2023): One episode uncomplicated at [facility] 09/2016 Normal colonoscopy the same year Repeat colonoscopy recommended in 10 years Cervical radiculitis 03/18/2012 024 Cervical spinal stenosis 03/18/2012 Neck pain 03/18/2012 03/13/2023 Low back pain 09/24/2009 07/02/2023 Scoliosis 09/24/2009 08/19/2024 Groin pain 09/24/2009 03/13/2023 Neuropathic pain syndrome (non-herpetic) 09/24/2009 03/13/2023 Encounters Date Type Department Care Team Description 03/02/2025 10:30 AM EDT Office Visit [facility] [address] [place] [phone] Name, MD Jamie VALDOVINOS (dyspnea on exertion) (Primary Dx); Chronic heart failure with preserved ejection fraction (HFpEF) (HCC); Sore throat; Benign prostatic hyperplasia (BPH) with straining on urination; Acute retention of urine; Pacheco catheter in place; Vaccine refused by patient 03/02/2025 Travel 03/01/2025 Telephone [facility] [address] [place] [address] Jamie Garcia MD Chart Prep 02/18/2025 Orders Only GENERIC EXTERNAL DATA DEPARTMENT Provider, Generic External Data 02/16/2025 Telephone [facility] [address] [place] [address] Codey Lewis MA Referral 02/07/2025 2:20 PM EDT Office Visit [facility] [address] [place] [phone] Salud Shaw MD Viral syndrome (Primary Dx); Subjective fever; Cough, unspecified type; Back pain, unspecified back location, unspecified back pain laterality, unspecified chronicity 02/07/2025 Results Follow-Up [address] [address] Salud hSaw MD XR Chest 2 Views 02/07/2025 Orders Only [address] [address] Salud Shaw MD Pneumonia of left lower lobe due to infectious organism (Primary Dx) 02/07/2025 Travel 02/04/[address] [address] Jamie Garcia MD Back pain, unspecified back location, unspecified back pain laterality, unspecified chronicity 01/23/2025 Orders Only GENERIC EXTERNAL DATA DEPARTMENT Provider, Generic External Data 01/20/2025 Results Follow-Up [address] [address] Macy Amador NP Basic Metabolic Panel 01/12/2025 Orders Only [address] [address] Macy Amador NP from Last 3 Months Immunizations Immunization Administration Dates Next Due Influenza, High Dose Seasonal, Preservative Free 02/17/2018 Pfizer Covid-19 Vaccine 12+ 06/14/2021,01/21/202 2 Pneumococcal Conjugate PCV 13 02/05/2016 Pneumococcal [...] housing situation today? I have taylor jett 07/08/[address] you li [...] 1950 Sigmoidoscopy 1950 Hepatitis C Screening 1968 RSV Patients and Patients Aged 60 years or older (1 - Risk 50-74 years 1-dose series) 2000 Zoster Vaccines (1 of 2) 2000 Dental Prophylaxis 11/19/2024 08/19/2024, 0 12/06/2018, 11/02/2017, [...] KUMAR ID NOW (03/02/2025 10:48 AM EDT) [facility] Rapid Strep A Screen Negative Negative, None Detected QC Media Lot # [id number] Lot# Expiration Date Swab 03/02/2025 10:4 8 AM EDT us Jamie Garcia MD POINT OF CARE TEST ENTER/EDIT OR DERABLES Final Result * POCT Rapid Covid-19 BinaxNOW (03/02/2025 10:48 AM EDT) Only the most recent of2 resultswithin the time period is included. [facility] Rapid COVID Ag Negative QC Media Lot # [id number] Lot# Expiration Date [id number] Swab 03/02/2025 10:4 8 AM EDT us Jamie Garcia MD POINT OF CARE TEST ENTER/EDIT OR DERABLES Final Result * POCT Rapid Influenza B OSOM (03/02/2025 10:48 AM EDT) [facility] Rapid Influenza B Ag Negative Negative, Indeterminate QC Media Lot # [id number] Lot# Expiration Date Swab 03/02/2025 10:4 8 AM EDT us Jamie Garcia MD POINT OF CARE TEST ENTER/EDIT OR DERABLES Final Result * POCT Rapid Influenza A OSOM (03/02/2025 10:48 AM EDT) [facility] Rapid Influenza A Ag Negative Negative, Indeterminate QC Media Lot # [id number] Lot# Expiration Date Swab Nasopharyngeal structure / Unknown 03/02/2025 10:48 AM EDT Jamie Jose DURHAM POINT OF CARE TEST ENTER/EDIT OR DERABLES Final Result * (ABNORMAL) Urinalysis, Complete, with Reflex to Culture (02/18/2025 5:45 PM EDT) [facility] Color Urine Yellow [facility] Appearance Urine Clear [facility] PH 6.0 5.0 - 9.0 [facility] Glucose Urine UA Negative Negative mg/dL [facility] Urine Blood Large (3+)(A) Negative [facility] Specific [place] - Urine <=1.005 1.005 - 1.025 [facility] Urine Protein Negative Neg-Trace mg/dL [facility] Urine Ketones Negative Negative mg/dL [facility] Nitrite Urine Negative Negative [facility] Leukocyte Esterase Urine Negative Negative [facility] RBC Urine >20(A) 0 - 2 /HPF [facility] Urine WBC 0-5 0 - 5 /HPF [facility] Urine Squamous Epithelial Cell 0-2 0 - 2 /HPF [facility] Urine Bacteria None Seen None Seen [facility] Hyaline Casts, Urine 0-2 0 - 2 /LPF [facility] 02/18/2025 5:45 PM EDT 02/18/2025 5:50 PM EDT Narrative [facility] - 02/18/2025 6:06 PM EDT Urine, [place] us Generic External Data Provider LAB URINE ORDERAB LES Final Result [facility] [address] [place] [phone] * (ABNORMAL) CBC auto differential (02/18/2025 2:46 PM EDT) White Blood Count 6.6 4.8 - 10.8 X10*3/uL [facility] Red Blood Count 4.85 4.60 - 5.80 X10*6/uL [facility] Hemoglobin 15.5 14.0 - 18.0 g/dl [facility] Hematocrit 44.7 42.0 - 52.0 % [facility] Mean Corpuscular Volume 92.2 80.0 - 98.0 fL [facility] Mean Corpuscular Hemoglobin 32.0 27.0 - 33.0 pg [facility] Mean Corpuscular HGB Conc 34.7 31.0 - 36.0 g/dl [facility] Red Cell Distribution Width 12.0 11.0 - 16.0 % [facility] Platelet Count 150(L) 160 - 400 X10*3/uL [facility] Mean Platelet Volume 9.4 9.4 - 12.4 fL [facility] Neutrophils Percent Auto 70.7 45 - 73 % [facility] Imm Gran Pct Auto 0.3 0.0 - 0.4 % [facility] Lymphocytes Percent Auto 21.9 20 - 40 % [facility] Monocytes Percent Auto 6.4 2 - 11 % [facility] Eosinophils Percent Auto 0.5 0 - 4 % [facility] Basophils Percent Auto 0.2 0 - 2 % [facility] NRBC Pct Auto 0.0 0.0 - 0.2 /100WBC [facility] Neutrophils Absolute Auto 4.7 2.0 - 8.3 x10*3/uL [facility] Imm Gran Abs Auto 0.02 0.00 - 0.03 X10*3/uL [facility] Lymphocytes Absolute Auto 1.4 1.2 - 4.9 X10*3/uL [facility] Monocytes Absolute Auto 0.4 0.1 - 1.2 X10*3/uL [facility] Eosinophils Absolute Auto 0.0 0.0 - 0.4 X10*3/uL [facility] Basophils Absolute Auto 0.0 0.0 - 0.2 X10*3/uL [facility] NRBC Abs Auto 0.000 0.0 - 0.012 X10*3/uL [facility] 02/18/2025 2:46 PM EDT 02/18/2025 2:48 PM EDT us Generic External Data Provider LAB BLOOD ORDERAB LES Final Result [facility] [address] [place] [address] [phone] * (ABNORMAL) Comprehensive Metabolic Panel (02/18/2025 2:46 PM EDT) Sodium 135 135 - 145 mmol/L [facility] Potassium 4.0 3.3 - 5.1 mmol/L [facility] Chloride 93(L) 96 - 108 mmol/L [facility] Carbon Dioxide 28 22 - 29 mmol/L [facility] Anion Gap 18 12 - 20 [facility] Urea Nitrogen (BUN) 16 9 - 16 mg/dL [facility] Creatinine, Serum 0.82 0.5 - 1.4 mg/dL [facility] Creatinine Clr Calc Pharmacy 47.0 [facility] Comment:eGFR (calculated fro m the MDRD study equation) and eCrCl(calculated from the Cockcroft-Gault equation) are based ondifferent parameters and may not yield comparable results.If eCrCl result is absurd, please check patient'sheight/weight. Estimated Glomerular Filt Rate >60 [facility] Comment:Chronic Kidney Disea se: Estimated GFR < 60 mL/min/[id number] Kidney Disease: Estimated GFR < 15 mL/min/1.73m2 Glucose 126(H) 60 - 115 mg/dL [facility] Calcium 9.8 8.4 - 10.2 mg/dL [facility] Bilirubin, Total 0.9 0.0 - 1.0 mg/dL [facility] Aspartate Amino Transferase 26 5 - 37 U/L [facility] Alanine Aminotransferase 11 0 - 40 U/L [facility] Total Protein 7.4 6.5 - 8.0 g/dL [facility] Albumin Level 4.7 3.5 - 5.0 g/dL [facility] Alkaline Phosphatase 97 39 - 117 U/L [facility] 02/18/2025 2:46 PM EDT 02/18/2025 2:48 PM EDT us Generic External Data Provider LAB BLOOD ORDERAB LES Final Result [facility] [address] [place] [address] [phone] * XR Chest 2 Views (02/07/2025 3:50 PM EDT) Anatomical Region Laterality Modality Chest Radiographic Iliana ging 02/07/2025 3:50 PM EDT Narrative 02/07/2025 4:09 PM EDT [facility] [address] [place] [address] XRay Report Signed Patient: Ifeanyi White MR#: [id number] : 1950 Acct:[id number] Age/Sex: 74 / M ADM Date: 02/07/25 Loc: HO.HHCX Attending Dr: Salud Davis MD Ordering Physician: Salud Shaw MD Date of Service: 02/07/25 Procedure(s): XR chest 2V Accession Number(s): [id number] cc: Salud Shaw MD Reason for Exam: [...] 02/07/25 1606 DD/ 1550 TD/TT: 02/07/25 1558 [employer] Operator: Procedure Note Donotuseinterpreter, Image - 02/07/2025 [facility] [address] [place] [address] XRay Report Signed Patient: Ifeanyi White AMR#: [id number] : 1950cct:[id number] Age/Sex: 74 / MADM Date: 02/07/25 Loc: HO.HHCX Attending Dr: Salud Davis MD Ordering Physician: Salud Shaw MD Date of Service: 02/07/25 Procedure(s): XR chest 2V Accession Number(s): [id number] cc: Salud Shaw MD Reason for Exam: [...] 02/07/25 1606 DD/ 1550 TD/TT: 02/07/25 1558 [employer] Operator: us Salud Davis MD IMG XR PROCEDURES Fin al Result * POCT Rapid Influenza B KUMAR ID NOW (02/07/2025 2:45 PM EDT) Influenza B Negative Negative, Indeterminate [facility] QC Media Lot # [id number] [facility] Lot# Expiration Date [facility] Swab 02/07/2025 2:45 PM EDT Salud Davis MD POINT OF CARE TEST EN TER/EDIT ORDERABLES Final Result Performing Organization Address [facility] Co de Phone Number [facility] [address] [place] [phone] * POCT Rapid Influenza A KUMAR ID NOW (02/07/2025 2:45 PM EDT) Pathologist [facility] Influenza A Negative Negative, Indeterminate [facility] QC Media Lot # [id number] [facility] Lot# Expiration Date [facility] Swab 02/07/2025 2:45 PM EDT us Salud Davis MD POINT OF CARE TEST EN TER/EDIT ORDERABLES Final Result Performing Organization Address [facility] de Phone Number [facility] [address] [place] [phone] * Culture, Urine, Routine (02/07/2025 2:00 PM EDT) Urine Urine specimen obtained by clean catch procedure / Unknown 02/07/2025 2:00 PM EDT 02/08/2025 11:54 AM EDT Comment:CC Narrative [facility] - 02/09/2025 9:36 AM EDT Urine Culture No growth. Specimen Source: Urine clean catch us Salud Davis MD LAB MICROBIOLOGY - GE NERAL ORDERABLES Final Result Performing Organization Address [facility] Co de Phone Number [facility] [address] [place] [phone] * Cytopath-cell enhanced (01/23/2025 5:31 PM EDT) 01/23/2025 5:31 PM EDT 01/24/2025 9:00 AM EDT [facility] - 01/24/2025 2:40 PM EDT ----- ------- Name: Ifeanyi White Age/Sex: 74/M : 1950 Unit#: [id number] Attend Dr: Rhonda Castañeda MD Re01/23/25 Status: DEP [facility] Disch: ----- ------- SPEC : [id number] RECD: 01/24/25 STATUS: ALTAF CROFT NUM: [id number] DANN: 01/23/25-[address] [facility] [address]: Rhonda Castañeda MD ENTERED: 01/24/25-947 SP TYPE: Cytology [facility] DR: Jamie Garcia MD ORDERED: Cyto-enhanced Diagnosis [...] developed and their performance characteristics determined by [facility]. They have not been cleared or approved by the U.S. Food and Drug Administration (FDA). However, the FDA has determined that such clearance or approval is not necessary. This laboratory is certified under the Clinical Laboratory Improvement Amendments of 1988 (CLIA) as qualified to perform high complexity clinical laboratory testing. Copies To: Rhonda Castañeda MD [facility] [address] [place] [address] [address]. [address] [place] [address] [email or web address] Name,Jamie DURHAM [address] [address] CONTINUED ON NEXT PAGE ----- ------- Name: Ifeanyi White Gustavo Age/Sex: 74/M : 1950 Unit#: [id number] Attend Dr: Rhonda Castañeda MD Re01/23/25 Status: DEP REF Location: .LAB Disch: ----- ------- SPEC : [id number] RECD: 01/24/25 STATUS: ALTAF CROFT NUM: [id number] DANN: 01/23/25-[address]: Rhonda Castañeda MD ENTERED: 01/24/25-947 SP TYPE: Cytology [facility]TH[facility] DR: Jamie Garcia MD ORDERED: Cyto-enhanced ----- ------- Signed (signature on file) Rafael Greene MD 01/24/25 1440 ----- ------- END OF REPORT us Generic External Data Provider LAB CYTOLOGY SANGEETHA ZARATE Final Result [facility] [address] [place] [phone] * (ABNORMAL) PSA, Free and Total (01/12/2025 11:57 AM EDT) PSA, Total 8.1(A) < OR = 4.0 ng/mL [facility] PSA % Free 21(A) >25 % (calc) [facility] Comment: PSA(ng/mL) Free PSA(%) Estimated(x) Probability of Cancer(as%)0-2.5 (*) Approx. 12.6-4.0(1) 0-27(2) 24(3)4.1-10(4) 0-10 56 11-15 28 16-20 20 21-25 16 >or =26 8>10(+) N/A >50References:(1)Chantel et al.:Urology 60: 469-474 (2002) (2)Chantel et al.:J.Urol 168: 922-925 (2001) Free PSA(%) Sensitivity(%) Specificity(%) < or = 25 85 19 < or = 30 93 9 (3)Catalona et al.:JEAN 277: 4548-2917 (1996) (4)Catalona et al.:JEAN 279: 2707-2762 (1997)(x)These estimates vary with age, ethnicity, family [...] presence or absence ofdisease.THIS TEST WAS PERFORMED AT:[employer] [place] [phone] OSUNA MD PSA, Free 1.7 ng/mL [facility] 01/12/2025 11:5 7 AM EDT 01/12/2025 11:57 AM EDT us Generic External Data Provider LAB BLOOD ORDERAB LES Final Result [facility] [address] [place] [phone] [phone] * (ABNORMAL) PSA, Total With Reflex to PSA, Free (01/12/2025 9:41 AM EDT) PSA,Total (Free>4and<10) 8.19(H) 0.00 - 4.00 ng/mL [facility] Comment:PSA methodology: Abb khushi Kennedy i ChemiluminescentMicroparticle Immunoassay (CMIA) 01/12/2025 9:41 AM EDT 01/12/2025 9:41 AM EDT us Generic External Data Provider LAB BLOOD ORDERAB LES Final Result Performing Organization Address [facility]/ZIP Co de Phone Number [facility] [address] [place] [address] [phone] * (ABNORMAL) Basic Metabolic Panel (01/12/2025 9:41 AM EDT) Sodium 140 135 - 145 mmol/L [facility] Potassium 4.0 3.3 - 5.1 mmol/L [facility] Chloride 99 96 - 108 mmol/L [facility] Carbon Dioxide 31(H) 22 - 29 mmol/L [facility] Anion Gap 14 12 - 20 [facility] Urea Nitrogen (BUN) 15 9 - 16 mg/dL [facility] Creatinine, Serum 0.65 0.5 - 1.4 mg/dL [facility] Estimated Glomerular Filt Rate >60 [facility] Comment:Chronic Kidney Disea se: Estimated GFR < 60 mL/min/1.02p8Yhbecq Kidney Disease: Estimated GFR < 15 mL/min/1.73m2 Glucose 86 60 - 115 mg/dL [facility] Calcium 9.6 8.4 - 10.2 mg/dL [facility] 01/12/2025 9:41 AM EDT 01/12/2025 9:41 AM EDT us Macy Amador NP LAB BLOOD ORDERABLES Final Resu lt Performing Organization Address City/[facility]/ZIP Co de Phone Number [facility] [address] [place] [phone] * Lipid Panel, Standard (04/11/2022 9:26 AM EST) Cholesterol, Total 149 <200 mg/dL [facility] [place] [facility] HDL Cholesterol 86 > OR = 40 mg/dL [email or web address] [place] Triglycerides 54 <150 mg/dL [email or web address] [place] LDL Cholesterol 50 mg/dL (calc) [email or web address] [place] [facility] Comment: Reference range: <100 Desirable range <100 mg/dL for primary prevention; <70 mg/dL for patients with CHD or diabetic patients with > or = 2 CHD risk factors. LDL-C is now calculated using the Eliza calculation, which is a validated novel method providing better accuracy than the Friedewald equation in the estimation of LDL-C. Fredy SS et al. JEAN. 2013;310(75): 6229-6773 (http://education.[employer]/faq/EDJ006) Chol/HDLC Ratio 1.7 <5.0 (calc) [email or web address] [place] Non-HDL Cholesterol 63 <130 mg/dL (calc) [email or web address] [place] [facility] Comment: For patients with diabetes plus 1 major ASCVD risk factor, treating to a non-HDL-C goal of <100 mg/dL (LDL-C of <70 mg/dL) is considered a therapeutic option. Blood Venous blood specimen / Unknown 04/11/2022 9:26 AM EST 04/11/2022 9:26 AM EST Narrative [facility] - 04/11/2022 9:46 PM EST FASTING:YES FASTING: YES Jamie Garcia MD LAB BLOOD ORDERABLES Final Resul t [facility] [address] [place] [address] [email or web address] [place] [address], [facility] [place] [address] * Hm Colonoscopy (11/17/2016 12:06 PM EDT) Colonoscopy Normal Normal Narrative Maria Esther Zhao - 11/17/2016 12:06 PM EDT Recommended 10 years follow up Historical Provider HEALTH MAINTENANCE Final Result from Last 3 Months or Most Recently Relevant to Health Maintenance Insurance [facility] STANDARD [facility] HALF-WAY OPTIONS (HMO D-SNP) [facility] Care Teams Personal Injury Law Specialist Relationship Specialty Start Date End Date Name, MD Jamie [address] [place] [address] PCP - General Family Medicine 10/29/15 Lia Gustavo 07/02/24
--- OUTSIDE RECORDS SUMMARY | 2025-04-03 08:26 | XMS_ITS | Encounter Summary ---
Author Organization [email or web address] Address [address] [facility] [address] [place] [address] Care Team Providers Care Direct Mail Coordinator Name Role Phone Name, Jamie DURHAM Primary Care Provider [phone] Reason for Visit * Reason Comments Med Refill Encounter Details Date Type Department Care Team ([facility] st Contact Info) Description 06/08/2024 Refill [facility] [address] [place], [place] [phone] Name, MD Jamie [address] [place] [address] Social History Tobacco Use Types Packs/Day Years [...] documented as of this encounter Care Teams Direct Mail Coordinator Relationship Specialty Start Date End Date Name, MD Jamie [address] [place] [address] PCP - General Family Medicine 10/29/15 Lia Gustavo 07/02/24 documented as of this encounter
--- OUTSIDE RECORDS SUMMARY | 2025-04-03 08:26 | XMS_ITS | Encounter Summary ---
Author Organization [employer] Address [address] [place] [address] [address] [place] [address] Care Team Providers Care Dowel Pin Worker Name Role Phone Name, Jamie DURHAM Primary Care Provider [phone] Encounter Details Date Type Department Care Team ([facility] st Contact Info) Description 10/03/2022 Abstract [facility] [address] [place], [place] [id number] Name, MD Jamie [address] [place] [address] Social History Tobacco Use Types Packs/Day Years [...] on filedocumented in this encounter Care Teams Dowel Pin Worker Relationship Specialty Start Date End Date Name, MD Jamie [address] [place] [address] PCP - General Family Medicine 10/29/15 Lia SOFIA 07/02/24 documented as of this encounter
--- OUTSIDE RECORDS SUMMARY | 2025-04-03 08:26 | XMS_ITS | Encounter Summary ---
Author Organization [employer] Address [address] [facility] [address] [place] [address] Care Team Providers Care Visitor Services Assistant Name Role Phone Name, Jamie DURHAM Primary Care Provider [phone] Encounter Details Date Type Department Care Team (Latest Contact Info) Description 08/24/2018 Abstract [facility] CONVERSIONS Dental, Provider, DDS Social [...] on filedocumented in this encounter Care Teams Visitor Services Assistant Relationship Specialty Start Date End Date Name, MD Jamie [address] [place] [phone] PCP - General Family Medicine 10/29/15 [facility] 07/02/24 documented as of this encounter
== END 2025-04-03 08:55 | disposition home or self-care (01) ==
LOC: HO.HUSH 08:15
PROVIDERS: PCP Internal Medicine Geriatric Medicine; Visit Provider Urology
DX: N40.1 Benign prostatic hyperplasia with lower urinary tract symptoms (principal)

== ENCOUNTER → 2025-04-03 08:14 | Outpatient (BNVA) | payer OTHER, SELFPAY | PROVIDERS: PCP Internal Medicine Geriatric Medicine; Visit Provider Urology | DX: N40.1 Benign prostatic hyperplasia with lower urinary tract symptoms (principal); R35.1 Nocturia | CPT/HCPCS: 51700; 51798 ==

== ENCOUNTER 2025-04-04 14:51 | Emergency (ER) | payer OTHER, SELFPAY ==
[2025-04-04 15:11] VITALS: BP 160/92; BP 161/80; PULSE 101; PULSE 103; RESP 20; TEMP 36.7; O2SAT 96; O2SAT 98; BMI 17.2
--- NOTE | 2025-04-04 15:47 | PC.NURSE ---
Patient arrived to the ED via EMS with urinary retention. Patient has liu that was removed yesterday. Patient states he has had minimal urine output since removal of catheter. States pain is 10/10 in low pelvic area. Patient bladder scanned on arrival with >530 mls. 18 Belarusian Liu catheter placed. Liu draining clear yellow urine. Patient staes great relief of pressure. VSS. at bedside.
--- OUTSIDE RECORDS SUMMARY | 2025-04-04 17:09 | XMS_ITS | Encounter Summary ---
Author Organization [employer] Address [address] [facility] 7t [place] [address] Care Team Providers Care Train Engineer Name Role Phone Name, Jamie DURHAM Primary Care Provider [phone] Encounter Details Date Type Department Care Team ([facility] st Contact Info) Description 08/26/2023 Telephone [facility]INE [address] [place], [place] [phone] Name, MD Jamie 230 [place] [address] Social History Tobacco Use Types Packs/Day Years [...] documented as of this encounter Care Teams Train Engineer Relationship Specialty Start Date End Date Name, MD Jamie [address] [place] [address] PCP - General Family Medicine 10/29/15 Lia SOFIA 07/02/24 documented as of this encounter
--- OUTSIDE RECORDS SUMMARY | 2025-04-04 17:09 | XMS_ITS | Encounter Summary ---
Author Organization [employer] Address [address] [facility] 7t [place] [address] Care Team Providers Care Pole Sander Operator Name Role Phone Name, Jamie DURHAM Primary Care Provider [phone] Reason for Visit * Reason Comments Med Refill Encounter Details Date Type Department Care Team ([facility] st Contact Info) Description 08/10/2023 Refill [facility] MEDICINE 230 [place], [place] [phone] Name, MD Jamie [address] [place] [address] Social History Tobacco Use Types Packs/Day Years [...] documented as of this encounter Care Teams Pole Sander Operator Relationship Specialty Start Date End Date Name, MD Jamie [address] [place] [address] PCP - General Family Medicine 10/29/15 Lia Gustavo 07/02/24 documented as of this encounter
--- OUTSIDE RECORDS SUMMARY | 2025-04-04 17:09 | XMS_ITS | Encounter Summary ---
Author Organization [employer] Address [address] [facility] 7t [place] [address] Care Team Providers Care Senior Mechanical Project Manager Name Role Phone Name, Jamie DURHAM Primary Care Provider [phone] Reason for Visit * Reason Comments Med Refill Encounter Details Date Type Department Care Team ([facility] st Contact Info) Description 06/08/2024 Refill [facility] MEDICINE 230 [place], [place] [phone] Name, MD Jamie 230 [place] [address] Social History Tobacco Use Types Packs/Day Years [...] documented as of this encounter Care Teams Senior Mechanical Project Manager Relationship Specialty Start Date End Date Name, MD Jamie [address] [place] [address] PCP - General Family Medicine 10/29/15 Lia Gustavo 07/02/24 documented as of this encounter
--- OUTSIDE RECORDS SUMMARY | 2025-04-04 17:09 | XMS_ITS | Encounter Summary ---
Author Organization [employer] Address [address] [place] [address] 7t [place] [address] Care Team Providers Care Waxer Name Role Phone Name, Jamie DURHAM Primary Care Provider [phone] Encounter Details Date Type Department Care Team ([facility] st Contact Info) Description 10/03/2022 Abstract [facility] MEDICINE 230 [place], [place] [phone] Name, MD Jamie 230 [place] [address] Social History Tobacco Use Types Packs/Day Years [...] on filedocumented in this encounter Care Teams Waxer Relationship Specialty Start Date End Date Name, MD Jamie 230 [facility] [place] [address] PCP - General Family Medicine 10/29/15 Lia SOFIA 07/02/24 documented as of this encounter
--- OUTSIDE RECORDS SUMMARY | 2025-04-04 17:09 | XMS_ITS | Encounter Summary ---
Author Organization [employer] Address [address] [facility] 7t [place] [address] Care Team Providers Care Chuck Wagon Driver Name Role Phone Name, Jamie DURHAM Primary Care Provider [phone] Reason for Visit * Reason Comments Med Refill Encounter Details Date Type Department Care Team ([facility] st Contact Info) Description 10/12/2023 Refill [facility] MEDICINE [address] [place], [place] [phone] Name, MD Jamie [address] [place] [address] Social History Tobacco Use Types Packs/Day Years [...] documented as of this encounter Care Teams Chuck Wagon Driver Relationship Specialty Start Date End Date Name, MD Jamie [address] [place] [address] PCP - General Family Medicine 10/29/15 Lia Gustavo 07/02/24 documented as of this encounter
--- OUTSIDE RECORDS SUMMARY | 2025-04-04 17:09 | XMS_ITS | Clinical Summary ---
Author Organization [employer] Address [address] [facility] 7t [place] [address] Care Team Providers Care Retail Coverage Merchandiser Name Role Phone Name, Jamie DURHAM Primary Care Provider [phone] Allergies Active Allergy Reactions Criticality Noted Date [...] Blood work normal including screening for subclinical Temple and 24 urine metanephrines. His MRI was inconclusive since the patient has severe scoliosis and imaging did not allow for adrenal evaluation. Mild intermittent asthma without complication History of inguinal hernia repair, bilateral 02/2023 Essential hypertension 06/07/2018 Benign prostatic hyperplasia (BPH) with straining on urination 02/17/2018 Candidal intertrigo 10/16/2017 Urinary bladder stone 10/16/2017 Kidney stone 10/09/2017 Overview (09/15/2023): He follows with [facility]rology Has renal stones BPH [...] 09/15/2023 Overview (03/13/2023): [place]com[place] [facility] [place] Normal colonoscopy the same year Repeat colonoscopy recommended in 10 years Cervical radiculitis 03/18/2012 024 Cervical spinal stenosis 03/18/2012 Neck pain 03/18/2012 03/13/2023 Low back pain 09/24/2009 07/02/2023 Scoliosis 09/24/2009 08/19/2024 Groin pain 09/24/2009 03/13/2023 Neuropathic pain syndrome (non-herpetic) 09/24/2009 03/13/2023 Encounters Date Type Department Care Team Description 03/02/2025 10:30 AM EDT Office Visit [facility] MEDICINE [address] [place] [phone] Name, MD Jamie VALDOVINOS (dyspnea on exertion) (Primary Dx); Chronic heart failure with preserved ejection fraction (HFpEF) (HCC); Sore throat; Benign prostatic hyperplasia (BPH) with straining on urination; Acute retention of urine; Pacheco catheter in place; Vaccine refused by patient 03/02/2025 Travel 03/01/2025 Telephone [facility] [address] [place] [address] Jamie Garcia MD Chart Prep 02/18/2025 Orders Only GENERIC EXTERNAL DATA DEPARTMENT Provider, Generic External Data 02/16/2025 Telephone [facility] [address] [place] [address] Codey Lewis [place] Referral 02/07/2025 2:20 PM EDT Office Visit [facility] [address] [place] [address] Salud Shaw MD Viral syndrome (Primary Dx); Subjective fever; Cough, unspecified type; Back pain, unspecified back location, unspecified back pain laterality, unspecified chronicity 02/07/2025 Results Follow-Up [address] [address] Salud Shaw MD XR Chest 2 Views 02/07/2025 Orders Only [address] [address] Salud Shaw MD Pneumonia of left lower lobe due to infectious organism (Primary Dx) 02/07/2025 Travel 02/04/[address] [address] Jamie Garcia MD Back pain, unspecified back location, unspecified back pain laterality, unspecified chronicity 01/23/2025 Orders Only GENERIC EXTERNAL DATA DEPARTMENT Provider, Generic External Data 01/20/2025 Results Follow-Up [address] [address] Macy Amador NP Basic Metabolic Panel 01/12/2025 Orders Only [address] [address] Macy Amador NP from Last 3 Months [...] KUMAR ID NOW (03/02/2025 10:48 AM EDT) [facility] Rapid Strep A Screen Negative Negative, None Detected QC Media Lot # [id number] Lot# Expiration Date Swab 03/02/2025 10:4 8 AM EDT us Jamie Garcia MD POINT OF CARE TEST ENTER/EDIT OR DERABLES Final Result * POCT Rapid Covid-19 BinaxNOW (03/02/2025 10:48 AM EDT) Only the most recent of2 resultswithin the time period is included. [facility] Rapid COVID Ag Negative QC Media Lot # [id number] Lot# Expiration Date [id number] Swab 03/02/2025 10:4 8 AM EDT us Jamie Garcia MD POINT OF CARE TEST ENTER/EDIT OR DERABLES Final Result * POCT Rapid Influenza B OSOM (03/02/2025 10:48 AM EDT) [facility] Rapid Influenza B Ag Negative Negative, Indeterminate QC Media Lot # [id number] Lot# Expiration Date Swab 03/02/2025 10:4 8 AM EDT us Jamie Garcia MD POINT OF CARE TEST ENTER/EDIT OR DERABLES Final Result * POCT Rapid Influenza A OSOM (03/02/2025 10:48 AM EDT) [facility] Rapid Influenza A Ag Negative Negative, Indeterminate QC Media Lot # [id number] Lot# Expiration Date Swab Nasopharyngeal structure / Unknown 03/02/2025 10:48 AM EDT Jamie Jose DURHAM POINT OF CARE TEST ENTER/EDIT OR DERABLES Final Result * (ABNORMAL) Urinalysis, Complete, with Reflex to Culture (02/18/2025 5:45 PM EDT) [facility] Color Urine Yellow [facility] Appearance Urine Clear [facility] PH 6.0 5.0 - 9.0 [facility] Glucose Urine UA Negative Negative mg/dL [facility] Urine Blood Large (3+)(A) Negative [facility] Specific Apison - Urine <=1.005 1.005 - 1.025 [facility] Urine Protein Negative Neg-Trace mg/dL [facility] Urine Ketones Negative Negative mg/dL [facility] Nitrite Urine Negative Negative [facility] Leukocyte Esterase Urine Negative Negative [facility] RBC Urine >20(A) 0 - 2 /HPF [facility] Urine WBC 0-5 0 - 5 /HPF [facility] Urine Squamous Epithelial Cell 0-2 0 - 2 /HPF [facility] Urine Bacteria None Seen None Seen [facility] Hyaline Casts, Urine 0-2 0 - 2 /LPF [facility] 02/18/2025 5:45 PM EDT 02/18/2025 5:50 PM EDT Narrative [facility] - 02/18/2025 6:06 PM EDT Urine, [place] us Generic External Data Provider LAB URINE ORDERAB LES Final Result [facility] [address] [place] [phone] * (ABNORMAL) CBC auto differential (02/18/2025 2:46 PM EDT) White Blood Count 6.6 4.8 - 10.8 X10*3/uL [facility] Red Blood Count 4.85 4.60 - 5.80 X10*6/uL [facility] Hemoglobin 15.5 14.0 - 18.0 g/dl [facility] Hematocrit 44.7 42.0 - 52.0 % [facility] Mean Corpuscular Volume 92.2 80.0 - 98.0 fL [facility] Mean Corpuscular Hemoglobin 32.0 27.0 - 33.0 pg [facility] Mean Corpuscular HGB Conc 34.7 31.0 - 36.0 g/dl [facility] Red Cell Distribution Width 12.0 11.0 - 16.0 % [facility] Platelet Count 150(L) 160 - 400 X10*3/uL [facility] Mean Platelet Volume 9.4 9.4 - 12.4 fL [facility] Neutrophils Percent Auto 70.7 45 - 73 % [facility] Imm Gran Pct Auto 0.3 0.0 - 0.4 % [facility] Lymphocytes Percent Auto 21.9 20 - 40 % [facility] Monocytes Percent Auto 6.4 2 - 11 % [facility] Eosinophils Percent Auto 0.5 0 - 4 % [facility] Basophils Percent Auto 0.2 0 - 2 % [facility] NRBC Pct Auto 0.0 0.0 - 0.2 /100WBC [facility] Neutrophils Absolute Auto 4.7 2.0 - 8.3 x10*3/uL [facility] Imm Gran Abs Auto 0.02 0.00 - 0.03 X10*3/uL [facility] Lymphocytes Absolute Auto 1.4 1.2 - 4.9 X10*3/uL [facility] Monocytes Absolute Auto 0.4 0.1 - 1.2 X10*3/uL [facility] Eosinophils Absolute Auto 0.0 0.0 - 0.4 X10*3/uL [facility] Basophils Absolute Auto 0.0 0.0 - 0.2 X10*3/uL [facility] NRBC Abs Auto 0.000 0.0 - 0.012 X10*3/uL [facility] 02/18/2025 2:46 PM EDT 02/18/2025 2:48 PM EDT us Generic External Data Provider LAB BLOOD ORDERAB LES Final Result [facility] [address] [place] [address] [phone] * (ABNORMAL) Comprehensive Metabolic Panel (02/18/2025 2:46 PM EDT) Sodium 135 135 - 145 mmol/L [facility] Potassium 4.0 3.3 - 5.1 mmol/L [facility] Chloride 93(L) 96 - 108 mmol/L [facility] Carbon Dioxide 28 22 - 29 mmol/L [facility] Anion Gap 18 12 - 20 [facility] Urea Nitrogen (BUN) 16 9 - 16 mg/dL [facility] Creatinine, Serum 0.82 0.5 - 1.4 mg/dL [facility] Creatinine Clr Calc Pharmacy 47.0 [facility] Comment:eGFR (calculated fro m the MDRD study equation) and eCrCl(calculated from the Cockcroft-Gault equation) are based ondifferent parameters and may not yield comparable results.If eCrCl result is absurd, please check patient'sheight/weight. Estimated Glomerular Filt Rate >60 [facility] Comment:Chronic Kidney Disea se: Estimated GFR < 60 mL/min/1.36d5Fjvnkr Kidney Disease: Estimated GFR < 15 mL/min/1.73m2 Glucose 126(H) 60 - 115 mg/dL [facility] Calcium 9.8 8.4 - 10.2 mg/dL [facility] Bilirubin, Total 0.9 0.0 - 1.0 mg/dL [facility] Aspartate Amino Transferase 26 5 - 37 U/L [facility] Alanine Aminotransferase 11 0 - 40 U/L [facility] Total Protein 7.4 6.5 - 8.0 g/dL [facility] Albumin Level 4.7 3.5 - 5.0 g/dL [facility] Alkaline Phosphatase 97 39 - 117 U/L [facility] 02/18/2025 2:46 PM EDT 02/18/2025 2:48 PM EDT us Generic External Data Provider LAB BLOOD ORDERAB LES Final Result [facility] [address] [place] [address] [phone] * XR Chest 2 Views (02/07/2025 3:50 PM EDT) Anatomical Region Laterality Modality Chest Radiographic Iliana ging 02/07/2025 3:50 PM EDT Narrative 02/07/2025 4:09 PM EDT [facility] [address] [place] [address] XRay Report Signed Patient: Ifeanyi White MR#: [id number] : 1950 Acct:[id number] Age/Sex: 74 / M ADM Date: 02/07/25 Loc: HO.HHCX Attending Dr: Salud Davis MD Ordering Physician: Salud Shaw MD Date of Service: 02/07/25 Procedure(s): XR chest 2V Accession Number(s): [id number] cc: Salud Shaw MD Reason for Exam: [...] 02/07/25 1606 DD/ 1550 TD/TT: 02/07/25 1558 Stitcher Standard Machine: Procedure Note Donotuseinterpreter, Image - 02/07/2025 [facility] [address] [place] [address] XRay Report Signed Patient: Ifeanyi White AMR#: [id number] : 1950cct:[id number] Age/Sex: 74 / MADM Date: 02/07/25 Loc: HO.HHCX Attending Dr: Salud Davis MD Ordering Physician: Salud Shaw MD Date of Service: 02/07/25 Procedure(s): XR chest 2V Accession Number(s): [id number] cc: Salud Shaw MD Reason for Exam: [...] 02/07/25 1606 DD/ 1550 TD/TT: 02/07/25 1558 Stitcher Standard Machine: us Salud Davis MD IMG XR PROCEDURES [...] TER/EDIT ORDERABLES Final Result Performing Organization Address [facility] Co de Phone Number [facility] [address] [place] [phone] * POCT Rapid Influenza A KUMAR ID NOW (02/07/2025 2:45 PM EDT) Pathologist [facility] Influenza A Negative Negative, Indeterminate [facility] QC Media Lot # [id number] [facility] Lot# Expiration Date [facility] Swab 02/07/2025 2:45 PM EDT us Salud Davis MD POINT OF CARE TEST EN TER/EDIT ORDERABLES Final Result Performing Organization Address [facility] de Phone Number [facility] [address] [place] [phone] * Culture, Urine, Routine (02/07/2025 2:00 PM EDT) Urine Urine specimen obtained by clean catch procedure / Unknown 02/07/2025 2:00 PM EDT 02/08/2025 11:54 AM EDT Comment:CC Narrative [facility] - 02/09/2025 9:36 AM EDT Urine Culture No growth. Specimen Source: Urine clean catch us Salud Davis MD LAB MICROBIOLOGY - GE NERAL ORDERABLES Final Result Performing Organization Address [facility] Co de Phone Number [facility] [address] [place] [phone] * Cytopath-cell enhanced (01/23/2025 5:31 PM EDT) 01/23/2025 5:31 PM EDT 01/24/2025 9:00 AM EDT [facility] - 01/24/2025 2:40 PM EDT ----- ------- Name: Ifeanyi White Age/Sex: 74/M : 1950 Unit#: [id number] Attend Dr: Rhonda Castañeda MD Re01/23/25 Status: DEP [facility] Disch: ----- ------- SPEC : [id number] RECD: 01/24/25 STATUS: ALTAF CROFT NUM: [id number] DANN: 01/23/25-[address] [facility] [address]: Rhonda Castañeda MD ENTERED: 01/24/25-947 SP TYPE: Cytology [facility] DR: Jamie Garcia MD ORDERED: Cyto-enhanced Diagnosis [...] developed and their performance characteristics determined by [facility]. They have not been cleared or approved by the U.S. Food and Drug Administration (FDA). However, the FDA has determined that such clearance or approval is not necessary. This laboratory is certified under the Clinical Laboratory Improvement Amendments of 1988 (CLIA) as qualified to perform high complexity clinical laboratory testing. Copies To: Rhonda Castañeda MD [facility] [address] [place] [address] Dr. Eastman [address] [place] [address] [email or web address] Name,Jamie DURHAM [address] [address] CONTINUED ON NEXT PAGE ----- ------- Name: Ifeanyi White Gustavo Age/Sex: 74/M : 1950 Unit#: [id number] Attend Dr: Rhonda Castañeda MD Re01/23/25 Status: DEP REF Location: .LAB Disch: ----- ------- SPEC : [id number] RECD: 01/24/25 STATUS: ALTAF CROFT NUM: [id number] DANN: 01/23/25-[address]: Rhonda Castañeda MD ENTERED: 01/24/25-947 SP TYPE: Cytology OTHR DR: Jamie Garcia MD ORDERED: Cyto-enhanced ----- ------- Signed (signature on file) Rafael Greene MD 01/24/25 1440 ----- ------- END OF REPORT us Generic External Data Provider LAB CYTOLOGY SANGEETHA ZARATE Final Result [facility] [address] [place] [phone] * (ABNORMAL) PSA, Free and Total [...] 30 93 9 (3)Catalona et al.:JEAN 277: 7163-5605 (1996) (4)Catalona et al.:JEAN 279: 8471-6850 (1997)(x)These estimates vary with age, ethnicity, family [...] presence or absence ofdisease.THIS TEST WAS PERFORMED AT:[facility] [place] [phone] OSUNA MD PSA, Free 1.7 ng/mL [facility] 01/12/2025 11:5 7 AM EDT 01/12/2025 11:57 AM EDT us Generic External Data Provider LAB BLOOD ORDERAB LES Final Result [facility] [address] [place] [address] [phone] * (ABNORMAL) PSA, Total With Reflex to PSA, Free (01/12/2025 9:41 AM EDT) PSA,Total (Free>4and<10) 8.19(H) 0.00 - 4.00 ng/mL [facility] Comment:PSA methodology: Abb khushi Kennedy i ChemiluminescentMicroparticle Immunoassay (CMIA) 01/12/2025 9:41 AM EDT 01/12/2025 9:41 AM EDT us Generic External Data Provider LAB BLOOD ORDERAB LES Final Result Performing Organization Address [facility]/ZIP Co de Phone Number [facility] [address] [place] [address] [phone] * (ABNORMAL) Basic Metabolic Panel (01/12/2025 [...] Kidney Disea se: Estimated GFR < 60 mL/min/1.43w0Xevdur Kidney Disease: Estimated GFR < 15 mL/min/1.73m2 Glucose 86 60 - 115 mg/dL [facility] Calcium 9.6 8.4 - 10.2 mg/dL [facility] 01/12/2025 9:41 AM EDT 01/12/2025 9:41 AM EDT us Macy Amador NP LAB BLOOD ORDERABLES Final Resu lt Performing Organization Address City/[facility]/ZIP Co de Phone Number [facility] [address] [place] [address] [phone] * Lipid Panel, Standard (04/11/2022 9:26 AM EST) Cholesterol, Total 149 <200 mg/dL [facility] [place] [email or web address] HDL Cholesterol 86 > OR = 40 mg/dL [facility] [place] [email or web address] Triglycerides 54 <150 mg/dL [facility] [place] [email or web address] LDL Cholesterol 50 mg/dL (calc) [facility] [place] [email or web address] Comment: Reference range: <100 Desirable range <100 mg/dL for primary prevention; <70 mg/dL for patients with CHD or diabetic patients with > or = 2 CHD risk factors. LDL-C is now calculated using the Eliza calculation, which is a validated novel method providing better accuracy than the Friedewald equation in the estimation of LDL-C. Fredy SS et al. JEAN. 2013;310(58): 6998-6639 (http://education.H.BLOOM/faq/IBH886) Chol/HDLC Ratio 1.7 <5.0 (calc) [facility] [place] [email or web address] Non-HDL Cholesterol 63 <130 mg/dL (calc) [facility] [place] [email or web address] Comment: For patients with diabetes plus 1 major ASCVD risk factor, treating to a non-HDL-C goal of <100 mg/dL (LDL-C of <70 mg/dL) is considered a therapeutic option. Blood Venous blood specimen / Unknown 04/11/2022 9:26 AM EST 04/11/2022 9:26 AM EST Narrative [facility] - 04/11/2022 9:46 PM EST FASTING:YES FASTING: YES Jamie Garcia MD LAB BLOOD ORDERABLES Final Resul t [facility] [address], [place] [address] [facility] [place] [email or web address] [address], [place] [address] * Hm Colonoscopy (11/17/2016 12:06 PM EDT) Colonoscopy Normal Normal Narrative Maria Esther Zhao - 11/17/2016 12:06 PM EDT Recommended 10 years follow up Historical Provider HEALTH MAINTENANCE Final Result from Last 3 Months or Most Recently Relevant to Health Maintenance Insurance [facility] STANDARD [facility] OPTIONS (HMO D-SNP) DENTAL [facility] Care Teams Retail Coverage Merchandiser Relationship Specialty Start Date End Date Name, MD Jamie [address] [place] [address] PCP - General Family Medicine 10/29/15 Lia Gustavo 07/02/24
--- OUTSIDE RECORDS SUMMARY | 2025-04-04 17:09 | XMS_ITS | Encounter Summary ---
Author Organization [employer] Address [address] [facility] 7t [place] [address] Care Team Providers Care Inspector Soldering Name Role Phone Name, Jamie DURHAM Primary Care Provider [phone] Encounter Details Date Type Department Care Team ([facility] st Contact Info) Description 06/14/2023 Abstract [facility] [address] [place], [place] [phone] Name, MD Jaime [address] [place], [place] [phone] Social History Tobacco Use Types Packs/Day Years [...] on filedocumented in this encounter Care Teams Inspector Soldering Relationship Specialty Start Date End Date Name, MD Jamie [address] [place] [address] PCP - General Family Medicine 10/29/15 Lia SOFIA 07/02/24 documented as of this encounter
--- OUTSIDE RECORDS SUMMARY | 2025-04-04 17:09 | XMS_ITS | Encounter Summary ---
Author Organization [employer] Address [address] [facility] 7[address] [place] [address] Care Team Providers Care Overhauler Name Role Phone Name, Jamie DURHAM Primary Care Provider [phone] Reason for Visit * Reason Onset Date Comments Hospital Follow-up 07/04/2024 Encounter Details Date Type Department Care Team ([facility] st Contact Info) Description 07/04/2024 Telephone [facility] MEDICINE [address] [place], [place] [phone] Name, MD Jamie [address] [place] [address] Hospital Follow-up Social History Tobacco Use Types [...] requesting a HDF appt. Hospital: [facility] Date of admission: 06/28 Discharge date: 06/30 Diagnosed: pneumonia, flu *Send message to Lia Clinical Care Coordinators [phone] arabic documented in this encounter Plan of Treatment Not on file documented as of this encounter Visit Diagnoses Not on filedocumented in this encounter Additional Health Concerns Assessment Noted Time PHQ-9 Depression Total Score: 0 07/02/19 24 10:12 AM EST documented as of this encounter Care Teams Overhauler Relationship Specialty Start Date End Date Name, MD Jamie [address] [place] [address] PCP - General Family Medicine 10/29/15 Lia SOFIA 07/02/24 documented as of this encounter
--- OUTSIDE RECORDS SUMMARY | 2025-04-04 17:09 | XMS_ITS | Encounter Summary ---
Author Organization [employer] Address [address] [facility] 7[address] [place] [address] Care Team Providers Care Bus Assistant Name Role Phone Name, Jamie DURHAM Primary Care Provider [phone] Encounter Details Date Type Department Care Team (Latest Contact Info) Description 08/24/2018 Abstract [facility] CONVERSIONS Dental, Provider, DDS Social History [...] on filedocumented in this encounter Care Teams Bus Assistant Relationship Specialty Start Date End Date Name, MD Jamie [address] [place] [id number] PCP - General Family Medicine 10/29/15 [facility] 07/02/24 documented as of this encounter
[2025-04-04 17:22] VITALS: PULSE 77; RESP 18; TEMP 36.6; O2SAT 96
--- NOTE | 2025-04-04 18:15 | ED.MALEGU ---
HPI - Male Genitourinary General Chief complaint: Urogenital-Male Stated complaint: GROIN PAIN Time Seen by Provider: 04/04/25 16:06 Source: patient, family, RN notes reviewed, old records reviewed and hospital aides and assistants teacher Mode of arrival: ambulatory Limitations: language barrier History of Present Illness ED Provider: Patricia NOBLE Narrative: Patient is a 74 year old male with past medical history of BPH and recurrent UTIs presentng today after getting his liu catheter removed yesterday. This morning was able to urinate a lot , however, since then has not been able to. Pt endorses pain at distal penis. Denies abdominal pain, pain or itching with urination, diarrhea or constipation. Pt has been to ED for the same issues twice in the past 2 months. Is being followed by urology. Related Data Home Medications ?Medication ?Instructions ?Recorded ?Confirmed gabapentin 300 mg capsule 300 mg PO DAILY 06/03/23 01/23/25 latanoprost 0.005 % eye drops 1 drp ophthalmic-Left QPM 06/03/23 01/23/25 naproxen 500 mg tablet 500 mg PO BID PRN Pain 06/03/23 01/23/25 losartan 25 mg tablet 25 mg PO DAILY 07/04/23 01/23/25 atorvastatin 20 mg tablet 20 mg PO DAILY 06/27/24 01/23/25 qofomhrhufodcdmepwjkdn-tunuudam-hrsresnp 1 drp ophthalmic-Left BEDTIME 06/27/24 01/23/25 80 0.5 %-1 %-0.5 % eye drops (Refresh Optive Advanced) timolol maleate 0.5 % eye drops 1 drp ophthalmic-Left DAILY 06/27/24 01/23/25 Previous Rx's ?Medication ?Instructions ?Recorded furosemide 20 mg tablet (Lasix) 20 mg PO DAILY #30 tabs 06/30/24 cefpodoxime 200 mg tablet 200 mg PO BID #10 tabs 11/14/24 doxycycline hyclate 100 mg capsule 100 mg PO BID #10 caps 11/14/24 ciprofloxacin HCl 500 mg tablet 500 mg PO BID 5 days #10 tabs 01/23/25 finasteride 5 mg tablet 5 mg PO DAILY 30 days #30 tabs 01/23/25 tamsulosin 0.4 mg capsule 0.8 mg (2 x 0.4 mg) PO DAILY #180 01/23/25 caps cefuroxime axetil 500 mg tablet 500 mg PO Q12H #14 tabs 04/04/25 Allergies Allergy/AdvReac Type Severity Reaction Status Date / Time No Known Allergies Allergy Verified 04/04/25 15:15 Review of Systems Constitutional: Constitutional: Reports as per HPI, Denies chills, Denies fatigue, Denies fever(s) and Denies headache(s) ENT: Denies headache(s) Cardiovascular: Cardiovascular: Denies chest pain and Denies dyspnea Respiratory: Respiratory: Denies cough and Denies dyspnea Gastrointestinal: Gastrointestinal: Denies abdominal pain, Denies constipation, Denies diarrhea and Denies vomiting Genitourinary: Genitourinary: Reports difficulty urinating, Denies dysuria, Denies penile discharge, Denies scrotal swelling and Denies testicular pain Integumentary/Breasts: Skin/Breast: Denies rash Neurologic: Denies headache(s) and Denies focal weakness Endocrine: Endocrine: Denies fatigue [facility] Past Medical History Medical History Hydrocele, bilateral Renal mass of unknown nature Pectus carinatum BPH (benign prostatic hyperplasia) Urinary retention Surgical History Hx of cystoscopy History of surgery on lower extremity H/O inguinal hernia repair Social History Social History Household Members: Spouse Housing: Apartment Do you presently have visiting nurse or other home services: No Alcohol intake: never Comment: reinforced on bed alarm Patient Tobacco Use Status: Never used Tobacco e-Cigarette/Vaping Use: Never Used Advance Directives: Yes Advance Directives on File: Yes Advance Directives Date on File: 07/08/23 service: No Physical Exam Vital Signs: Vital Signs: Last Vital Signs Temp 97.8 F 04/04/25 17:22 Pulse 78 04/04/25 18:19 Resp 18 04/04/25 17:22 BP 118/68 04/04/25 18:19 Pulse Ox 96 04/04/25 17:22 O2 Del Method Room Air 04/04/25 17:22 BMI result Body Mass Index 17.2 Const: General: healthy appearing, comfortable, no acute distress, alert and awake Nutritional Appearance: well nourished Orientation/consciousness: patient oriented x3 HEENT: Head: Yes normocephalic and Yes atraumatic Eyes: Eyelids: Yes eyelids normal Conjunctivae: conjunctivae normal Sclerae: sclerae normal Corneas: corneas normal Neck: Neck: Yes full ROM Resp: Effort & Inspection: normal respiratory effort, able to speak in complete sentences, no audible wheezes and not labored GI: Inspection: No distended Palpation (GI): Tenderness to palpation present (GI) in the LLQ; not suprapubicly : Male General Exam: Yes normal external exam Skin: General skin exam: no rashes or lesions noted and elasticity normal Neuro: General: patient oriented x3 Cognition (Neuro): normal cognition Medical Decision Making Medical Decision Making MDM Narrative: 74-year-old male with past medical history as above presents for evaluation of urinary retention. This has been an ongoing issue for him. His Liu catheter was removed yesterday and he has been unable to urinate since this morning. His bladder scan had over 500 cc of urine. A catheter was placed and he at approximately 800 cc of clear, yellow urine immediately returned. Plan to check basic labs, urinalysis. Differential Diagnosis Differential Diagnoses: The differential diagnosis associated with the presentation includes Acute urinary retention BPH Prostate cancer UTI Lab Data MDM Lab Attestation statement: I reviewed the patient's lab results. No leukocytosis or significant anemia. No significant electrolyte abnormalities warranting dimension. Urinalysis with positive nitrites, esterase, greater than 50 white cells and 4+ bacteria indicative of a UTI. We will treat with cefuroxime 04/04/25 18:32 04/04/25 18:32 Labs: Lab Results 04/04/25 04/04/25 Range/Units 18:32 19:28 WBC 8.6 (4.8-10.8) X10*3/uL RBC 4.47 L (4.60-5.80) X10*6/uL Hgb 14.3 (14.0-18.0) g/dl Hct 41.3 L (42.0-52.0) % MCV 92.4 (80.0-98.0) fL MCH 32.0 (27.0-33.0) pg MCHC 34.6 (31.0-36.0) g/dl RDW 12.3 (11.0-16.0) % Plt Count 153 L (160-400) X10*3/uL MPV 9.5 (9.4-12.4) fL Immature Gran % (Auto) 0.4 (0.0-0.4) % Neut % (Auto) 69.4 (45-73) % Lymph % (Auto) 23.4 (20-40) % [place] % (Auto) 6.5 (2-11) % Eos % (Auto) 0.1 (0-4) % Baso % (Auto) 0.2 (0-2) % Lymph # (Auto) 2.0 (1.2-4.9) X10*3/uL [place] # (Auto) 0.6 (0.1-1.2) X10*3/uL Eos # (Auto) 0.0 (0.0-0.4) X10*3/uL Baso # (Auto) 0.0 (0.0-0.2) X10*3/uL Abs Immat Gran (auto) 0.03 (0.00-0.03) X10*3/uL Absolute Neuts (auto) 5.9 (2.0-8.3) x10*3/uL Absolute Nucleated RBC 0.000 (0.0-0.012) X10*3/uL Nucleated RBC % (auto) 0.0 (0.0-0.2) /100WBC Sodium 135 (135-145) mmol/L Potassium 4.6 (3.3-5.1) mmol/L Chloride 96 (96-108) mmol/L Carbon Dioxide 30 H (22-29) mmol/L Anion Gap 14 (12-20) BUN 10 (9-16) mg/dL Creatinine 0.66 (0.5-1.4) mg/dL Estim Creat Clear Calc 51.9 Estimated GFR > 60 Random Glucose 105 (60-115) mg/dL Calcium 9.2 D (8.4-10.2) mg/dL Urine Color Yellow Urine Appearance Clear Urine pH 7.0 (5.0-9.0) Ur Specific [place] <= 1.005 (1.005-1.025) Urine Protein Trace (Neg-Trace) mg/dL Urine Glucose (UA) Negative (Negative) mg/dL Urine Ketones Trace (Negative) mg/dL Urine Blood Large (3+) H (Negative) Urine Nitrite Positive H (Negative) Ur Leukocyte Esterase Large (3+) H (Negative) Urine RBC 6-10 H (0-2) /HPF Urine WBC >50 H (0-5) /HPF Ur Squamous Epith Cells 0-2 (0-2) /HPF Urine Bacteria 4+ (None Seen) Hyaline Casts 0-2 (0-2) /LPF Discharge Plan Discharge Clinical Impression: Acute urinary retention, Acute UTI Patient Disposition: Home, Self-Care Instructions: Urinary Tract Infection in Men (ED), Liu Catheter Placement and Care (ED) Additional Instructions: Follow up with your urologist regarding your Liu catheter and management of urinary retention. You do have a urinary tract infection and I recommend taking cefuroxime twice daily for 1 full week pain Return for new or worsening symptoms Prescriptions: New cefuroxime axetil 500 mg tablet 500 mg PO Q12H Qty: 14 0RF No Action ciprofloxacin HCl 500 mg tablet 500 mg PO BID 5 Days Qty: 10 0RF Rx Instructions: Begin taking 2 days before procedure, day of procedure and for two days after procedure losartan 25 mg tablet 25 mg PO DAILY timolol maleate 0.5 % drops 1 drp ophthalmic-Left DAILY atorvastatin 20 mg tablet 20 mg PO DAILY Refresh Optive Advanced 0.5-1-0.5 % Drops 1 drp ophthalmic-Left BEDTIME furosemide [Lasix] 20 mg tablet 20 mg PO DAILY Qty: 30 0RF cefpodoxime 200 mg tablet 200 mg PO BID Qty: 10 0RF Rx Instructions: must administer with a meal/food doxycycline hyclate 100 mg capsule 100 mg PO BID Qty: 10 0RF naproxen 500 mg tablet 500 mg PO BID PRN (Reason: Pain) gabapentin 300 mg capsule 300 mg PO DAILY latanoprost 0.005 % drops 1 drp ophthalmic-Left QPM tamsulosin 0.4 mg capsule 0.8 mg PO DAILY Qty: 180 3RF finasteride 5 mg tablet 5 mg PO DAILY 30 Days Qty: 30 4RF Print Language: Sami
[2025-04-04 18:19] VITALS: BP 118/68; PULSE 78
[2025-04-04 18:35] LABS: MANUAL DIFF FLAG NO
[2025-04-04 18:36] LABS: Hematocrit 41.3 % (42.0-52.0); Hemoglobin 14.3 g/dl (14.0-18.0); Imm Gran Abs Auto 0.03 X10*3/uL (0.00-0.03); Imm Gran Pct Auto 0.4 % (0.0-0.4); Lymphocytes Absolute Auto 2.0 X10*3/uL (1.2-4.9); Mean Corpuscular HGB Conc 34.6 g/dl (31.0-36.0); Mean Corpuscular Hemoglobin 32.0 pg (27.0-33.0); Mean Corpuscular Volume 92.4 fL (80.0-98.0); NRBC Abs Auto 0.000 X10*3/uL (0.0-0.012); NRBC Pct Auto 0.0 /100WBC (0.0-0.2); Platelet Count 153 X10*3/uL (160-400); Red Blood Count 4.47 X10*6/uL (4.60-5.80); White Blood Count 8.6 X10*3/uL (4.8-10.8)
[2025-04-04 18:55] LABS: Anion Gap 14 (12-20); Blood Urea Nitrogen 10 mg/dL (9-16); Calcium 9.2 mg/dL (8.4-10.2); Carbon Dioxide 30 mmol/L (22-29); Chloride 96 mmol/L (96-108); Creatinine Clr Calc Pharmacy 51.9; Estimated Glomerular Filt Rate > 60; Potassium 4.6 mmol/L (3.3-5.1); Sodium 135 mmol/L (135-145)
--- NOTE | 2025-04-04 19:35 | PC.NURSE ---
assumed care of pt, liu in place draining clear yellow urine. no blood noted. pt reports some intermittent discomfort but other godoy denies any pain. urine sample obtained from liu port and sent to lab, awaiting results and plan for dispo.
[2025-04-04 19:37] LABS: Appearance Urine Clear; Glucose Urine UA Negative (Negative); PH 7.0 (5.0-9.0); Specific Gravity - Urine <= 1.005 (1.005-1.025); UMIC TRIGGER UACC YES
[2025-04-04 19:42] LABS: UACC Culture Trigger YES
[2025-04-04 20:22] VITALS: BP 144/74; PULSE 81; RESP 18; TEMP 36.8; O2SAT 94
== END 2025-04-04 20:23 | disposition home or self-care (01) ==
PROVIDERS: Physician Assistant; Emergency Provider Student in an Organized Health Care Education/Training Program; PCP Internal Medicine Geriatric Medicine
DX: R33.9 Retention of urine, unspecified (principal); N39.0 Urinary tract infection, site not specified; R10.30 Lower abdominal pain, unspecified; N40.0 Benign prostatic hyperplasia without lower urinary tract symptoms
CPT/HCPCS: 36415; 80048; 81001; 85025; 87086; 99285

== ENCOUNTER 2025-04-11 08:38 | Outpatient (AMB) | payer OTHER, SELFPAY ==
--- NOTE | 2025-04-11 08:38 | A.OFFVIS_ITS ---
Intake Visit Reasons: testicular swelling Intake Note: Patient presented to the office for nurse visit for groin pain. Upon inspection of testicles, they appears swollen and patient reported that he has not slept due to the pain from them. Virgie HUSSEIN to office for visit with nursing Protector Plate Attacher Required: Yes Protector Plate Attacher Services: Protector Plate Attacher Offered & Declined Allergies No Known Allergies Allergy (Verified 04/11/25 09:13) Medication List - Last Reconciled 04/11/25 by KEENAN Steven atorvastatin 20 mg PO DAILY thbiwufxsankdzy-emhoypp-aufr00 0.5-1-0.5 % (Refresh Optive Advanced) 1 drp ophthalmic-Left BEDTIME ciprofloxacin HCl 500 mg PO BID 10 days finasteride 5 mg PO DAILY 30 days furosemide (Lasix) 20 mg PO DAILY gabapentin 300 mg PO DAILY latanoprost 0.005% 1 drp ophthalmic-Left QPM losartan 25 mg PO DAILY naproxen 500 mg PO BID PRN tamsulosin 0.8 mg (2 x 0.4 mg) PO DAILY timolol maleate 0.5% 1 drp ophthalmic-Left DAILY HPI Comments Details: Ifeanyi is a very pleasant 74-year-old Nicaraguan-speaking male patient of Dr. Garcia who was accompanied by his daughter at today's office visit. He has a past medical history of bilateral hydroceles, renal mass, pectus carinatum, BPH, and urinary retention. Patient initially walked into the office today reporting bilateral testicular discomfort and swelling for the last 2-3 days at which time he was assessed by nursing in recommendations were made for provider assessment. In assessment of the patient today the penis is uncircumcised and a Pacheco catheter is present draining yellow urine into leg bag. Bilateral testicles with hydroceles present left side greater than right. Significant discomfort/pain upon palpation bilaterally. Upon palpation of left epididymis patient reporting significant pain and tenderness. He is currently on cefepime for potential urinary tract infection. Urine culture 04/27 > 100,000 cfu/ml Mixed bacterial lakesha characteristic of urogenital contamination. He has been following up with Dr. Eliot sol regarding his elevated PSA, BPH symptoms, bilateral hydroceles, and urinary retention. It appears patient presented to the office with nursing on 04/04 at which time he successfully passed his voiding trial here in the office however later that day went to the emergency room and was found to be in urinary retention and a catheter has since been in place. He reports compliance with tamsulosin and finasteride as prescribed. We did disc uss potential causes of scrotal discomfort he is experiencing. We discussed bilateral hydroceles as well as epididymo-orchitis. We discussed worsening symptoms at length. Will obtain scrotal ultrasound for further assessment evaluation. All questions were answered. PREVIOUS OFFICE NOTE: 01/23/25--Ifeanyi is a 74-year-old male who is here for follow-up. Being monitored for elevated PSA, BPH symptoms, lower urinary tract symptoms of urgency and slowing of urinary stream. The patient also has bilateral hydroceles that are asymptomatic. Follow-up PSA 01/12/2025 is 8.19. The patient is on finasteride and tamsulosin. Urinalysis today 1+ blood 1+ protein leukocytes negative. History of Present Illness The patient is a 74-year-old male presenting with elevated PSA levels and BPH symptoms. The patient has been experiencing urinary tract symptoms, including urgency and a slowing urinary stream, which are indicative of BPH. He is currently on finasteride and tamsulosin to manage these symptoms. Diuretic therapy. ComorbitiyPt states he is no longer using the vesicare. The patient's PSA level was recorded at 8.19 on 01/12/25, and he is being monitored for any further changes. A prostate biopsy was previously considered but postponed due to a decrease in PSA levels. The patient also has bilateral hydroceles, which are currently asymptomatic and do not require intervention at this time. Results - PSA level on 01/12/25: 8.19 - Urinalysis: 1+ blood, 1+ protein, leukocytes negative Plan 1. Elevated Prostate-Specific Antigen (Psa) - Plan to schedule a prostate biopsy to rule out malignancy. - Continue monitoring PSA levels. 2. Benign Prostatic Hyperplasia (Bph) - Continue current medications: finasteride and tamsulosin. - Monitor urinary symptoms and adjust treatment as necessary. 3. Bilateral Hydroceles - No intervention required at this time as they are asymptomatic. 4. Microscopic Hematuria- repeat cystoscopy, Out patient, at time of prostate bx. 10/05/24-- FU BPH, elevated PSA, OAB. LV--08/12/24--Ifeanyi is here for follow- up. He is on VESIcare and Vistaril for urinary symptoms of urgency frequency. He has been on tamsulosin b.i.d. for BPH symptoms. Bilateral hydrocele left greater than right is not symptomatic. PSA was elevated to 9.0, pt was treated for UTI. Repeat PSA--09/12/24-- PSA:5.63. 03/21/24-- 6 month FU--Ifeanyi is a 73 y/o here for follow-up. He was seen last on 07/16/2023 he was started on VESIcare and for urinary symptoms of urgency frequency. He has been on tamsulosin b.i.d. for BPH symptoms. Bilateral hydrocele left greater than right is not symptomatic. no recent PSA since 2019 09/17/2023--Ifeanyi is here for follow-up. He was seen last on 07/16/2023 he was started on VESIcare and Vistaril for urinary symptoms of urgency frequency. He has been on tamsulosin b.i.d. for BPH symptoms. Bilateral hydrocele left greater than right is not symptomatic. He was evaluated for microscopic hematuria CT urogram was within normal limits urine cytology sent May 2022 had atypical cells. The patient states his PCP discontinued the Vistaril as he is on gabapentin and combination of these meds have a high trans of drowsiness. Bladder scan PVR is 46 mL. He is tolerating VESIcare 5 mg and will continue tamsulosin. Repeat urine cytology. 07/16/23--Ifeanyi is a Nicaraguan-speaking male who who presents for office cystoscopy, he was last seen on 06/03/2023 with complaints of right inguinal pain. On examination he has bilateral hydrocele left greater than right. He was referred to General surgery due to right inguinal pain for further evaluation. He denies scrotal pain. He complains of urgency and frequency with nocturia 5-6 times. He was noted on evaluation to have an microscopic hematuria He previously had an MRI noting a hyperdense renal cyst, he was sent for CT urogram. Urine cytology sent on 06/03/[address]23 came back atypical cells. CT urogram no suspicious kidney lesions noted. Office cystoscopy findings--minimal petechiae changes noted, moderate trabeculations. No suspicious bladder lesions. [facility] Medical History Hydrocele, bilateral Renal mass of unknown nature Pectus carinatum BPH (benign prostatic hyperplasia) Urinary retention Surgical History Hx of cystoscopy History of surgery on lower extremity H/O inguinal hernia repair Social History Household Members: Spouse Housing: Apartment Do you presently have visiting nurse or other home services: No Alcohol intake: never Comment: reinforced on bed alarm Patient Tobacco Use Status: Never used Tobacco e-Cigarette/Vaping Use: Never Used Advance Directives Date on File: 07/08/23 service: No Review of Systems Const All systems reviewed & are unremarkable except as noted in HPI and below Physical Exam Const General: cooperative, healthy appearing, comfortable, no acute distress, well developed, alert and awake Orientation/consciousness: oriented to person, oriented to place, oriented to time and patient oriented x3 Limitations: language barrier HEENT Head: Yes normal to inspection Eyes General: appearance normal, both eyes and all related structures Neck Neck: Yes normal visual inspection Chest Other: as per HPI Resp Effort & Inspection: normal respiratory effort and able to speak in complete sentences Cardio Rate: regular rate GI Inspection: Yes normal to inspection Other: as per HPI General: Yes no CVA tenderness Back/Spine/Pelvis Back: no CVA tenderness Skin General skin exam: no rashes or lesions noted Neuro General: oriented to person, oriented to place, oriented to time and patient oriented x3 Extrem General: Yes normal to inspection Psych Appearance: well kempt Speech and movement: Normal speech and movement present and Clear speech present Affect: normal affect Attitude: cooperative Thought process: Normal thought process present Insight: Fair insight present (Psych) Judgement: Fair judgement present (Psych) Assessment & Plan Assessment & Plan (1) Hydrocele, bilateral: Code(s): N43.3 - Hydrocele, unspecified Category: Medical (2) Epididymitis: Code(s): N45.1 - Epididymitis Category: Medical (3) Epididymo-orchitis: Code(s): N45.3 - Epididymo-orchitis Category: Medical Plan Will obtain scrotal ultrasound for further assessment evaluation. Stop cefuroxime. Start ciprofloxacin as discussed and prescribed. We discussed epididymo-orchitis/epididymitis as well as hydroceles We discussed worsening symptoms All questions were answered Follow-up in 1-2 weeks; or sooner with any issues, concerns, and or questions. Medications: Discontinued cefuroxime axetil Discontinued Reason: Doctor's Order 500 mg PO Q12H 14 tabs 0RF cefpodoxime must administer with a meal/food Discontinued Reason: Patient Completed Course 200 mg PO BID 10 tabs 0RF doxycycline hyclate Discontinued Reason: Patient Completed Course 100 mg PO BID 10 caps 0RF Patient Instructions: The patient had an opportunity to ask questions regarding the treatment plan. All questions were answered. Physical exam, labs, and imaging were discussed and reviewed in detail. As well as risks, benefits, and discussion of treatment choices. No major barriers to understanding were identified. The patient expressed understanding and agreement with the above treatment plan. The patient was made aware they should contact our office by phone for worsening of their current condition, the appearance of new symptoms, or with any questions or concerns. Compliance is encouraged with any medications and follow up testing that is ordered. It is a privilege to be allowed the opportunity to participate in? your urological care.? Again, if you have any questions or concerns If you have any questions or concerns please do not hesitate to contact me. The office is [phone]. This note is constructed using voice recognition software. While every effort has been made to ensure accuracy missing persons investigator errors may have been included. Yours sincerely, KEENAN Steven Coding Level of Care Code Est Pt Level 4 (00903) Add On Problem Visit Only Diagnoses Hydrocele, bilateral N43.3 Epididymitis N45.1 Epididymo-orchitis N45.3
== END 2025-04-11 10:36 | disposition home or self-care (01) ==
LOC: HO.HUSH 08:38
PROVIDERS: PCP Internal Medicine Geriatric Medicine; Visit Provider Nurse Practitioner Family
DX: N43.3 Hydrocele, unspecified (principal); N45.1 Epididymitis; N45.3 Epididymo-orchitis
CPT/HCPCS: 99214; G2211

== ENCOUNTER → 2025-04-11 08:38 | Outpatient (BNVA) | payer OTHER, SELFPAY | PROVIDERS: PCP Internal Medicine Geriatric Medicine; Visit Provider Nurse Practitioner Family | DX: N45.3 Epididymo-orchitis (principal); N43.3 Hydrocele, unspecified | CPT/HCPCS: 99212 ==

== ENCOUNTER 2025-04-13 15:06 | Outpatient (REF) | payer OTHER, SELFPAY ==
--- NOTE | ~2025-04-13 | US_ITS ---
EXAMINATION: US SCROTUM HISTORY: N45.1 - Epididymitis. COMPARISON: Prior scrotal ultrasounds most recent July 2023 FINDINGS: Real-time grayscale ultrasound imaging of the scrotum was performed. RIGHT TESTICLE: The right testis measures 4.6 x 2.3 x 2.6 cm and demonstrates normal homogeneous echotexture. No masses are seen. The right testis demonstrates normal color Doppler flow. There is an appendix testis. RIGHT EPIDIDYMIS: The tail of the right epididymis is enlarged and demonstrates a diffusely heterogeneous echotexture with hyper and hyperechoic areas likely increased vascularity. This may represent epididymitis. Cannot epididymal mass. This is a new finding from most recent July 2023 exam. LEFT TESTICLE: The left testis measures 4.4 x 1.9 x 3.2 cm and demonstrates normal homogeneous echotexture. No masses are seen. The left testis demonstrates normal color Doppler flow. The left testicle is displaced posteriorly by the large epididymal head cyst versus loculated hydrocele. Small appendix testis. LEFT EPIDIDYMIS: Not visualized. VARICOCELE: None. HYDROCELE: Moderate to large complex right hydrocele with internal echoes. Large simple appearing left epididymal head cyst versus loculated hydrocele displaces the testicle posteriorly. This measures 7.5 x 4.2 x 4.9 cm. OTHER COMMENTS: None. US/US scrotum IMPRESSION: Right: Enlarged heterogeneous hypervascular tail of the right epididymis. This probably represents epididymitis. This is a new finding compared to July 2023 exam and it is difficult to exclude a mass. Ultrasound imaging follow-up following treatment recommended. Moderate to large complex right hydrocele. Left: Large simple epididymal head cyst versus loculated hydrocele. This displaces the left testicle posteriorly. The left epididymis is not visualized. Electronically signed by: Jailene Beltran MD 04/13/2025 04:23 PM EST
--- OUTSIDE RECORDS SUMMARY | 2025-04-13 22:37 | XMS_ITS | Encounter Summary ---
Author Organization [employer] Address [address] [facility] [address] [place] [address] Care Team Providers Care Grain Commodity Manager Name Role Phone Name, Jamie DURHAM Primary Care Provider [phone] Encounter Details Date Type Department Care Team ([facility] st Contact Info) Description 04/05/2025 Results Follow-Up [facility] MEDICINE [address] [place], [place] [id number] Name, MD Jamie [address] [place] [address] CBC auto differential, Basic Metabolic Panel, Urinalysis, Complete, with Reflex to Culture Social History Tobacco Use Types Packs/Day Years [...] documented as of this encounter Care Teams Grain Commodity Manager Relationship Specialty Start Date End Date Name, MD Jamie [address] [place] [address] PCP - General Family Medicine 10/29/15 Lia SOFIA 07/02/24 documented as of this encounter
--- OUTSIDE RECORDS SUMMARY | 2025-04-13 22:37 | XMS_ITS | Encounter Summary ---
Author Organization [employer] Address [address] [facility] [address] [place] [address] Care Team Providers Care Supervisor Green End Department Name Role Phone Name, Jamie DURHAM Primary Care Provider [phone] Encounter Details Date Type Department Care Team ([facility] st Contact Info) Description 08/26/2023 Telephone [facility] MEDICINE [address] [place], [place] [phone] Name, MD Jamie [address] [place] [address] Social History Tobacco Use Types Packs/Day Years [...] documented as of this encounter Care Teams Supervisor Green End Department Relationship Specialty Start Date End Date Name, MD Jamie [address] [place] [id number] PCP - General Family Medicine 10/29/15 Lia SOFIA 07/02/24 documented as of this encounter
--- OUTSIDE RECORDS SUMMARY | 2025-04-13 22:37 | XMS_ITS | Encounter Summary ---
Author Organization [employer] Address [address] [facility] [address] [place] [address] Care Team Providers Care Armored Car Guard Name Role Phone Name, Jamie DURHAM Primary Care Provider [phone] Reason for Visit * Reason Comments Med Refill Encounter Details Date Type Department Care Team ([facility] st Contact Info) Description 08/10/2023 Refill [facility] MEDICINE [address] [place], [place] [phone] Name, MD Jamie [address] [place] [address] Social History Tobacco Use Types Packs/Day Years [...] documented as of this encounter Care Teams Armored Car Guard Relationship Specialty Start Date End Date Name, MD Jamie [address] [place] [address] PCP - General Family Medicine 10/29/15 Lia Gustavo 07/02/24 documented as of this encounter
--- OUTSIDE RECORDS SUMMARY | 2025-04-13 22:37 | XMS_ITS | Encounter Summary ---
Author Organization [email or web address] Address [address] [facility] [address] [place] [address] Care Team Providers Care Electrician'S Assistant Name Role Phone Name, Jamie DURHAM Primary Care Provider [phone] Encounter Details Date Type Department Care Team ([facility] st Contact Info) Description 06/14/2023 Abstract [facility] MEDICINE [address] [place], [place] [phone] Name, MD Jamie [address] [place], [place] [phone] Social History Tobacco Use Types Packs/Day Years [...] on filedocumented in this encounter Care Teams Electrician'S Assistant Relationship Specialty Start Date End Date Name, MD Jamie [address] [place] [address] PCP - General Family Medicine 10/29/15 Lia SOFIA 07/02/24 documented as of this encounter
--- OUTSIDE RECORDS SUMMARY | 2025-04-13 22:37 | XMS_ITS | Encounter Summary ---
Author Organization [employer] Address [address] [facility] [address] [place] [address] Care Team Providers Care Seed Cleaner Name Role Phone Name, Jamie DURHAM Primary Care Provider [phone] Reason for Visit * Reason Comments Med Refill Encounter Details Date Type Department Care Team ([facility] st Contact Info) Description 10/12/2023 Refill [facility] MEDICINE [address] [place], [place] [phone] Name, MD Jamie [address] [place] [address] Social History Tobacco Use Types Packs/Day Years [...] documented as of this encounter Care Teams Seed Cleaner Relationship Specialty Start Date End Date Name, MD Jamie [address] [place] [address] PCP - General Family Medicine 10/29/15 Lia Gustavo 07/02/24 documented as of this encounter
--- OUTSIDE RECORDS SUMMARY | 2025-04-13 22:37 | XMS_ITS | Encounter Summary ---
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 04/13/2025 Encounter Details Date Type Department Care Team ([facility] st Contact Info) Description 04/13/2025 Telephone [facility] MEDICINE [address] [place], [place] [phone] Name, MD Jamie [address] [place] [address] MATERIAL INSPECTOR STATUS CHECK Social History Tobacco Use Types Packs/Day Years [...] encounter Miscellaneous Notes * Telephone Encounter - Ramila Maki RN - 04/13/2025 1:37 PM EST Hospital Discharges and Admission for [facility] Type of Visit: Emergency Department Date of Admission/Visit: 04/04/25 Date of Discharge: 04/04/25 Facility: [facility] Diagnosis: Acute urinary retention, Acute UTI Disposition: Discharged Home Follow-Up Actions Follow-Up Needed: Specialist appointment; None/self-monitoring Follow-Up Outcome: Spoke to Caregiver Initial Contact Date: 04/13/25 Patient Contacted: Yes Patient Status: Improved TC placed to pt via BLS 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 Spoke with pt's (on HIPAA). Pt's reports pt is doing better. Pt's states pt has a swollen testicle for which theyhave an ultrasound appointment for today at 3:30 PM. Pt's reports pt was seen by urology yesterday and medication from ED was changed from cefuroxime to ciprofloxacin 500 MG twice daily for 10 days. Pt's reports the pt developed a fever last evening and are unsure if related to antibioticchange or not. Asked pt's if they have taken the pt's temperature today and if pt still have afever. Pt's reports pt is only complaining of chills and they do not have an thermometer to check their temperature. Pt's also reports pt is complaining of a burning sensation with urination in their catheter. Pt's states pt has had this sensation since they re-inserted the catheter.Pt's denies pt having diarrhea, nausea, vomiting, abdominal pain. Pt's reports pt has been experiencing constipation. Pt's reports pt's last bowel movement was today. Advised pt's wifeto contact urology office regarding chills since starting new medication and regarding burning sensation. Pt's reports pt mentioned the burning sensation at the urology appointment yesterday, but cannot recall what the provider said. Advised pt's to contact urology office regarding chills since starting new medication and regarding burning sensation to obtain further recommendations. Pt's verbalized understanding and denies questions at this time. Pt to follow up PRN. The full discharge summary is Is available under encounters/interface Review Flowsheet [facility] Transition of Care Documentation Type of Visit Date of Admission/Visit Date of Discharge Facility Diagnosis Disposition 07/04/2024 9:18 AM Hospital Admission 06/08/2024 06/30/2024 [facility] Pneumonia, Flu Discharged Home 04/13/2025 1:00 PM Emergency Department 04/04/2025 04/04/2025 [facility] Acute urinary retention, Acute UTI Discharged Home Recent Visits Date Type Provider Dept 03/02/25 Office Visit Jamie Garcia MD [facility] 02/07/25 Office Visit Salud Davis MD [facility] 12/07/24 Office Visit Jamie Garcia MD [facility] 11/23/24 Office Visit Nicolas Boss CNP [facility] 10/13/24 Office Visit Ani Yost DO [facility] 08/11/24 Office Visit Jamie Garcia MD [facility] 07/08/24 Office Visit Macy Amador NP [facility] Showing recent visits within past 365 days with a meds authorizing provider and meeting all other requirements Future Appointments No visits were found meeting these conditions. Showing future appointments within next 150 days with a meds authorizing provider and meeting all other requirements Patient was educated on hours of operation. documented in this encounter Plan of Treatment Not on file documented as of this encounter Visit Diagnoses Not on filedocumented in this encounter Additional Health Concerns Assessment Noted Time PHQ-9 Depression Total Score: 0 07/09/19 1:47 PM EST documented as of this encounter Care Teams Stone Splitter Relationship Specialty Start Date End Date Name, MD Jamie [address] [place] [address] PCP - General Family Medicine 10/29/15 Lia Gustavo 07/02/24 documented as of this encounter
--- OUTSIDE RECORDS SUMMARY | 2025-04-13 22:37 | XMS_ITS | Encounter Summary ---
Author Organization [email or web address] Address [address] [facility] [address] [place] [address] Care Team Providers Care Scientific Specialist Name Role Phone Name, Jamie DURHAM Primary Care Provider [phone] Reason for Visit * Reason Onset Date Comments Hospital Follow-up 07/04/2024 Encounter Details Date Type Department Care Team ([facility] st Contact Info) Description 07/04/2024 Telephone [facility] MEDICINE [address] [place], [place] [phone] Name, MD Jamie [address] [place] [address] Hospital Follow-up Social History Tobacco Use Types [...] from pt requesting a HDF appt. [place] [facility] [place] of admission: 06/28 Discharge date: 06/30 Diagnosed: pneumonia, flu *Send message to [facility] Clinical Care Coordinators [phone] japanese documented in this encounter Plan of Treatment Not on file documented as of this encounter Visit Diagnoses Not on filedocumented in this encounter Additional Health Concerns Assessment Noted Time PHQ-9 Depression Total Score: 0 07/02/19 24 10:12 AM EST documented as of this encounter Care Teams Scientific Specialist Relationship Specialty Start Date End Date Name, MD Jamie [address] [place] [address] PCP - General Family Medicine 10/29/15 Lia SOFIA 07/02/24 documented as of this encounter
--- OUTSIDE RECORDS SUMMARY | 2025-04-13 22:38 | XMS_ITS | Clinical Summary ---
Author Organization [employer] Address [address] [facility] [address] [place] [address] Care Team Providers Care Helicopter Pilot Name Role Phone Name, Jamie DURHAM Primary Care Provider [phone] Allergies Active Allergy Reactions Criticality Noted Date [...] Once per day. 30 tablet 11 4 Active finasteride (Proscar) 5 MG tablet Take [...] for mild pain. 60 tablet 5 Active ciprofloxacin (Cipro) 500 MG tablet Take 500 mg by mouth 2 times daily. Active Active Problems Problem Noted Date Diagnosed Date Chronic heart failure with p reserved ejection fraction (HFpEF) 03/02/2025 Pneumonia 11/23/2024 Acute retention of urine 09/15/2023 Hydrocele, bilateral 07/02/2023 Renal mass of unknown nature 07/02/2023 Adrenal adenoma, left 07/02/2023 Overview (07/02/2023): 1.5 left adrenal incidentiloma (found on CT ordered by urology for renal stones). Blood work normal including screening for subclinical [place] and 24 urine metanephrines. His MRI was [...] 09/15/2023 Overview (03/13/2023): One episode uncomplicated at [facility] 09/2016 Normal colonoscopy the same year Repeat colonoscopy recommended in 10 years Cervical radiculitis 03/18/2012 024 Cervical spinal stenosis 03/18/2012 Neck pain 03/18/2012 03/13/2023 Low back pain 09/24/2009 07/02/2023 Scoliosis 09/24/2009 08/19/2024 Groin pain 09/24/2009 03/13/2023 Neuropathic pain syndrome (non-herpetic) 09/24/2009 03/13/2023 Encounters Date Type Department Care Team Description 04/13/2025 Telephone [facility] [address] [facility] [address] Name, MD Jamie CONTRACT LEAD STATUS CHECK 04/05/2025 Results Follow-Up [facility] [address] [facility] [place] [address] Jamie Garcia MD CBC auto differential, Basic Metabolic Panel, Urinalysis, Complete, with Reflex to Culture 04/04/2025 Orders Only GENERIC EXTERNAL DATA DEPARTMENT Provider, Generic External Data 03/02/2025 10:30 AM EDT Office Visit [address] [address] Jamie Garcia MD VALDOVINOS (dyspnea on exertion) (Primary Dx); Chronic heart failure with preserved ejection fraction (HFpEF) (HCC); Sore throat; Benign prostatic hyperplasia (BPH) with straining on urination; Acute retention of urine; Pacheco catheter in place; Vaccine refused by patient 03/02/2025 Travel 03/01/2025 Telephone [facility] [address] [place] [address] Jamie Garcia MD Chart Prep 02/18/2025 Orders Only GENERIC EXTERNAL DATA DEPARTMENT Provider, Generic External Data 02/16/[address] [address] Codey [place] Referral 02/07/2025 2:20 PM EDT Office Visit [facility] [address] [place] [address] Salud Shaw MD Viral syndrome (Primary Dx); Subjective fever; Cough, unspecified type; Back pain, unspecified back location, unspecified back pain laterality, unspecified chronicity 02/07/2025 Results Follow-Up [address] [address] Salud Shaw MD XR Chest 2 Views 02/07/2025 Orders Only [address] [address] Salud Shaw MD Pneumonia of left lower lobe due to infectious organism (Primary Dx) 02/07/2025 Travel 02/04/[address] [address] Jamie Garcia MD Back pain, unspecified back location, unspecified back pain laterality, unspecified chronicity 01/23/2025 Orders Only GENERIC EXTERNAL DATA DEPARTMENT Provider, Generic External Data 01/20/2025 Results Follow-Up [facility] [address] [place] [address] Macy Amador NP Basic Metabolic Panel 01/12/2025 Orders Only [facility] [address] [place] [address] Macy Amador NP from Last 3 Months [...] housing situation today? I have taylorjuanjo frausto 07/08/[address] you [...] 07/08/2025 07/08/2024 Depression Screening 07/08/2025 07/08/2024, 07/09/19 25 SDOH Screening 07/08/2025 07/08/2024 Dental X-Ray: Bitewings [...] Procedure Name Priority Date/Time Associated Diagnosis Comments CULTURE, URINE, ROUTINE Routine 04/04/2025 7:43 PM EST URINALYSIS, COMPLETE, WITH REFLEX TO CULTURE Routine 04/04/2025 7:28 PM EST BASIC METABOLIC PANEL Routine 04/04/2025 6:32 PM EST CBC WITH AUTO DIFFERENTIAL Routine 04/04/2025 6:32 PM EST POC KUMAR ID NOW STREP A Routine [...] Recently Relevant to Health Maintenance Results * Culture, Urine, Routine (04/04/2025 7:43 PM EST) Only the most recent of2 resultswithin the time period is included. Urine Urine specimen obtained by clean catch procedure / Unknown 04/04/2025 7:43 PM EST 04/04/2025 7:43 PM EST Comment:UACC Narrative [facility] - 04/06/2025 12:02 PM EST Urine Culture Report Result Urine Culture > 100,000 cfu/ml Urine Culture Mixed bacterial lakesha characteristic of Urine Culture urogenital contamination. Specimen Source: Urine clean catch us Generic External Data Provider LAB MICROBIOLOGY - GENERAL ORDERABLES Final Result [facility] [address] [place] [phone] * (ABNORMAL) Urinalysis, Complete, with Reflex to Culture (04/04/2025 7:28 PM EST) Only the most recent of2 resultswithin the time period is included. Color Urine Yellow [facility] Appearance Urine Clear [facility] PH 7.0 5.0 - 9.0 [facility] Glucose Urine UA Negative Negative mg/dL [facility] Urine Blood Large (3+)(A) Negative [facility] Specific Campbell - Urine <=1.005 1.005 - 1.025 [facility] Urine Protein Trace Neg-Trace mg/dL [facility] Urine Ketones Trace Negative mg/dL [facility] Nitrite Urine Positive(A) Negative [facility] Leukocyte Esterase Urine Large (3+)(A) Negative [facility] RBC Urine 6-10(A) 0 - 2 /HPF [facility] Urine WBC >50(A) 0 - 5 /HPF [facility] Urine Squamous Epithelial Cell 0-2 0 - 2 /HPF [facility] Urine Bacteria 4+ None Seen [facility] Hyaline Casts, Urine 0-2 0 - 2 /LPF [facility] 04/04/2025 7:28 PM EST 04/04/2025 7:34 PM EST Narrative [facility] - 04/04/2025 7:43 PM EST [id number], [place] us Generic External Data Provider LAB URINE ORDERAB LES Final Result [facility] [address] [place] [phone] * (ABNORMAL) CBC auto differential (04/04/2025 6:32 PM EST) Only the most recent of2 resultswithin the time period is included. White Blood Count 8.6 4.8 - 10.8 X10*3/uL [facility] Red Blood Count 4.47(L) 4.60 - 5.80 X10*6/uL [facility] Hemoglobin 14.3 14.0 - 18.0 g/dl [facility] Hematocrit 41.3(L) 42.0 - 52.0 % [facility] Mean Corpuscular Volume 92.4 80.0 - 98.0 fL [facility] Mean Corpuscular Hemoglobin 32.0 27.0 - 33.0 pg [facility] Mean Corpuscular HGB Conc 34.6 31.0 - 36.0 g/dl [facility] Red Cell Distribution Width 12.3 11.0 - 16.0 % [facility] Platelet Count 153(L) 160 - 400 X10*3/uL [facility] Mean Platelet Volume 9.5 9.4 - 12.4 fL [facility] Neutrophils Percent Auto 69.4 45 - 73 % [facility] Imm Gran Pct Auto 0.4 0.0 - 0.4 % [facility] Lymphocytes Percent Auto 23.4 20 - 40 % [facility] Monocytes Percent Auto 6.5 2 - 11 % [facility] Eosinophils Percent Auto 0.1 0 - 4 % [facility] Basophils Percent Auto 0.2 0 - 2 % [facility] NRBC Pct Auto 0.0 0.0 - 0.2 /100WBC [facility] Neutrophils Absolute Auto 5.9 2.0 - 8.3 x10*3/uL [facility] Imm Gran Abs Auto 0.03 0.00 - 0.03 X10*3/uL [facility] Lymphocytes Absolute Auto 2.0 1.2 - 4.9 X10*3/uL [facility] Monocytes Absolute Auto 0.6 0.1 - 1.2 X10*3/uL [facility] Eosinophils Absolute Auto 0.0 0.0 - 0.4 X10*3/uL [facility] Basophils Absolute Auto 0.0 0.0 - 0.2 X10*3/uL [facility] NRBC Abs Auto 0.000 0.0 - 0.012 X10*3/uL [facility] 04/04/2025 6:32 PM EST 04/04/2025 6:34 PM EST us Generic External Data Provider LAB BLOOD ORDERAB LES Final Result [facility] [address] [place] [address] [phone] * (ABNORMAL) Basic Metabolic Panel (04/04/2025 6:32 PM EST) Only the most recent of2 resultswithin the time period is included. Sodium 135 135 - 145 mmol/L [facility] Potassium 4.6 3.3 - 5.1 mmol/L [facility] Comment:Slight Hemolysis.Int erpret result with caution. Chloride 96 96 - 108 mmol/L [facility] Carbon Dioxide 30(H) 22 - 29 mmol/L [facility] Anion Gap 14 12 - 20 [facility] Urea Nitrogen (BUN) 10 9 - 16 mg/dL [facility] Creatinine, Serum 0.66 0.5 - 1.4 mg/dL [facility] Creatinine Clr Calc Pharmacy 51.9 [facility] Comment:eGFR (calculated fro m the MDRD study equation) and eCrCl(calculated from the Cockcroft-Gault equation) are based ondifferent parameters and may not yield comparable results.If eCrCl result is absurd, please check patient'sheight/weight. Estimated Glomerular Filt Rate >60 [facility] Comment:Chronic Kidney Disea se: Estimated GFR < 60 mL/min/1.62e2[place] Kidney Disease: Estimated GFR < 15 mL/min/1.73m2 Glucose 105 60 - 115 mg/dL [facility] Calcium 9.2 8.4 - 10.2 mg/dL [facility] 04/04/2025 6:32 PM EST 04/04/2025 6:34 PM EST us Generic External Data Provider LAB BLOOD ORDERAB LES Final Result [facility] [address] [place] [phone] * POCT Rapid Strep A KUMAR ID NOW (03/02/2025 10:48 AM EDT) Rapid Strep A Screen Negative Negative, None Detected QC Media Lot # [id number] Lot# Expiration Date Swab 03/02/2025 10:4 8 AM EDT us Jamieeric Garcia MD POINT OF CARE TEST ENTER/EDIT OR DERABLES Final Result * POCT Rapid Covid-19 BinaxNOW (03/02/2025 10:48 AM EDT) Only the most recent of2 resultswithin the time period is included. [facility] Rapid COVID Ag Negative QC Media Lot # [id number] Lot# Expiration Date [id number] Swab 03/02/2025 10:4 8 AM EDT Jamie Jose DURHAM POINT OF CARE TEST ENTER/EDIT OR DERABLES Final Result * POCT Rapid Influenza B OSOM (03/02/2025 10:48 AM EDT) [facility] Rapid Influenza B Ag Negative Negative, Indeterminate QC Media Lot # [id number] Lot# Expiration Date Swab 03/02/2025 10:4 8 AM EDT Jamie [facility] POINT OF CARE TEST ENTER/EDIT OR DERABLES Final Result * POCT Rapid Influenza A OSOM (03/02/2025 10:48 AM EDT) [facility] Rapid Influenza A Ag Negative Negative, Indeterminate QC Media Lot # [id number] Lot# Expiration Date Swab Nasopharyngeal structure / Unknown 03/02/2025 10:48 AM EDT Result [facility] Jamie [facility] POINT OF CARE TEST ENTER/EDIT OR DERABLES Final Result * (ABNORMAL) Comprehensive Metabolic Panel (02/18/2025 2:46 PM EDT) [facility] Sodium 135 135 - 145 mmol/L [facility] Potassium 4.0 3.3 - 5.1 mmol/L [facility] Chloride 93(L) 96 - 108 mmol/L [facility] Carbon Dioxide 28 22 - 29 mmol/L [facility] Anion Gap 18 12 - 20 [facility] Urea Nitrogen (BUN) 16 9 - 16 mg/dL [facility] Creatinine, Serum 0.82 0.5 - 1.4 mg/dL [facility] Creatinine Clr Calc Pharmacy 47.0 [facility] Comment:eGFR (calculated fro m the MDRD study equation) and eCrCl(calculated from the Cockcroft-Gault equation) are based ondifferent parameters and may not yield comparable results.If eCrCl result is absurd, please check patient'sheight/weight. Estimated Glomerular Filt Rate >60 [facility] Comment:Chronic Kidney Disea se: Estimated GFR < 60 mL/min/1.06z0[place] Kidney Disease: Estimated GFR < 15 mL/min/1.73m2 Glucose 126(H) 60 - 115 mg/dL [facility] Calcium 9.8 8.4 - 10.2 mg/dL [facility] Bilirubin, Total 0.9 0.0 - 1.0 mg/dL [facility] Aspartate Amino Transferase 26 5 - 37 U/L [facility] Alanine Aminotransferase 11 0 - 40 U/L [facility] Total Protein 7.4 6.5 - 8.0 g/dL [facility] Albumin Level 4.7 3.5 - 5.0 g/dL [facility] Alkaline Phosphatase 97 39 - 117 U/L [facility] 02/18/2025 2:46 PM EDT 02/18/2025 2:48 PM EDT us Generic External Data Provider LAB BLOOD ORDERAB LES Final Result Performing Organization Address City/State/[facility] Co de Phone Number [facility] [address] [place] [phone] * XR Chest 2 Views (02/07/2025 3:50 PM EDT) Anatomical Region Laterality Modality Chest Radiographic Iliana ging 02/07/2025 3:50 PM EDT Narrative 02/07/2025 4:09 PM EDT [address] [address] XRay Report Signed Patient: Ifeanyi White MR#: [id number] : 1950 Acct:[id number] Age/Sex: 74 / M ADM Date: 02/07/25 Loc: HO.MANDIECX Attending Dr: Salud Davis MD Ordering Physician: Salud Shaw MD Date of Service: 02/07/25 Procedure(s): XR chest 2V Accession Number(s): [id number] cc: Salud Shaw MD Reason for Exam: [...] 02/07/25 1606 DD/ 1550 TD/TT: 02/07/25 1558 Land Developer: Procedure Note Donotuseinterpreter, Image - 02/07/[address] [address] XRay Report Signed Patient: Ifeanyi White AMR#: [id number] : 1950cct:[id number] Age/Sex: 74 / MADM Date: 02/07/25 Loc: HO.HHCX Attending Dr: Salud Davis MD Ordering Physician: Salud Shaw MD Date of Service: 02/07/25 Procedure(s): XR chest 2V Accession Number(s): [id number] cc: Salud Shaw MD Reason for Exam: [...] 02/07/25 1606 DD/ 1550 TD/TT: 02/07/25 1558 Land Developer: us Salud Davis MD IMG XR PROCEDURES Fin al Result * POCT Rapid Influenza B KUMAR ID NOW (02/07/2025 2:45 PM EDT) Influenza B Negative Negative, Indeterminate [facility] QC Media Lot # [id number] [facility] Lot# Expiration Date [address] [facility] Swab 02/07/2025 2:45 PM EDT us Salud Davis MD POINT OF CARE TEST EN TER/EDIT ORDERABLES Final Result Performing Organization Address City/[facility]/ZIP Co de Phone Number [facility] [address] [place] [address] [phone] * POCT Rapid Influenza A KUMAR ID NOW (02/07/2025 2:45 PM EDT) Influenza A Negative Negative, Indeterminate [facility] QC Media Lot # [id number] [facility] Lot# Expiration Date [facility] Swab 02/07/2025 2:45 PM EDT Salud Davis MD POINT OF CARE TEST EN TER/EDIT ORDERABLES Final Result Performing Organization Address [facility] Co de Phone Number [facility] [address] [place] [phone] * Cytopath-cell enhanced (01/23/2025 5:31 PM EDT) 01/23/2025 5:31 PM EDT 01/24/2025 9:00 AM EDT Narrative [facility] - 01/24/2025 2:40 PM EDT ----- ------- Name: Mark Whiteandreas Chen Age/Sex: 74/M : 1950 Unit#: [id number] Attend Dr: Rhonda Castañeda MD Re01/23/25 Status: DEP REF Location: .LAB Disch: ----- ------- SPEC : [id number] RECD: 01/24/25 STATUS: ALTAF CROFT NUM: [id number] DANN: 01/23/25 [facility] DR: Rhonda Castañeda MD ENTERED: 01/24/25 SP [...] developed and their performance characteristics determined by [facility]. They have not been cleared or approved by the U.S. Food and Drug Administration (FDA). However, the FDA has determined that such clearance or approval is not necessary. This laboratory is certified under the Clinical Laboratory Improvement Amendments of 1988 (CLIA) as qualified to perform high complexity clinical laboratory testing. Copies To: Rhonda Castañeda MD [facility] [address] [place] [address] Dr. [address] [place] [address] [email or web address] Name,Jamie DURHAM [address] [phone] CONTINUED ON NEXT PAGE ----- ------- Name: Ifeanyi White Age/Sex: 74/M : 1950 Unit#: [id number] Attend Dr: Rhonda Castañeda MD Re01/23/25 Status: DEP REF Location: [facility] Disch: ----- ------- SPEC : [id number] RECD: 01/24/25 STATUS: ALTAF CROFT NUM: [id number] DANN: 01/23/25-1730 [facility] [address]: Rhonda Castañeda MD ENTERED: 01/24/25 SP TYPE: Cytology OTHR DR: Jamie Garcia MD ORDERED: Cyto-enhanced ----- ------- Signed (signature on file) Colin_ Rafael Greene MD 01/24/25 1440 ----- ------- END OF REPORT us Generic External Data Provider LAB CYTOLOGY SANGEETHA ZARTAE Final Result [facility] [address] [place] [address] [phone] * (ABNORMAL) PSA, Free and Total (01/12/2025 11:57 AM EDT) PSA, Total 8.1(A) < OR = 4.0 ng/mL [facility] PSA % Free 21(A) >25 % (calc) [facility] Comment: PSA(ng/mL) Free PSA(%) Estimated(x) Probability of Cancer(as%)0-2.5 (*) Approx. 12.6-4.0(1) 0-27(2) 24(3)4.1-10(4) 0-10 56 11-15 28 16-20 20 21-25 16 >or =26 8>10(+) N/A >50References:(1)Chantel et al.:Urology 60: 469-474 (2002) (2)Catalona et al.:J.Urol 168: 922-925 (2001) Free PSA(%) Sensitivity(%) Specificity(%) < or = 25 85 19 < or = 30 93 9 (3)Catalona et al.:JEAN 277: 8231-8395 (1996) (4)Catalona et al.:JEAN 279: 7013-6088 (1997)(x)These estimates vary with age, ethnicity, family [...] presence or absence ofdisease.THIS TEST WAS PERFORMED AT:[facility] [address] [phone] OSUNA MD PSA, Free 1.7 ng/mL [facility] 01/12/2025 11:5 7 AM EDT 01/12/2025 11:57 AM EDT Generic External Data Provider LAB BLOOD ORDERAB LES Final Result Performing Organization Address [facility]/ZIP Co de Phone Number [facility] [address] [place] [phone] * (ABNORMAL) PSA, Total With Reflex to PSA, Free (01/12/2025 9:41 AM EDT) PSA,Total (Free>4and<10) 8.19(H) 0.00 - 4.00 ng/mL [facility] Comment:PSA methodology: Abb khushi Aliherbty i ChemiluminescentMicroparticle Immunoassay (CMIA) 01/12/2025 9:41 AM EDT 01/12/2025 9:41 AM EDT Generic External Data Provider LAB BLOOD ORDERAB LES Final Result Performing Organization Address [facility]/ZIP Co de Phone Number [facility] [address] [place] [phone] * Lipid Panel, Standard (04/11/2022 9:26 AM EST) Cholesterol, Total 149 <200 mg/dL [facility] HDL Cholesterol 86 > OR = 40 mg/dL [facility] [place] [facility] Triglycerides 54 <150 mg/dL [facility] [place] [facility] LDL Cholesterol 50 mg/dL (calc) [facility] Comment: Reference range: <100 Desirable range <100 mg/dL for primary prevention; <70 mg/dL for patients with CHD or diabetic patients with > or = 2 CHD risk factors. LDL-C is now calculated using the Eliza calculation, which is a validated novel method providing better accuracy than the Friedewald equation in the estimation of LDL-C. Fredy SS et al. JEAN. 2013;310(19): 1321-4924 (http://education.[employer]/faq/ZUO133) Chol/HDLC Ratio 1.7 <5.0 (calc) [facility] Non-HDL Cholesterol 63 <130 mg/dL (calc) [facility] Comment: For patients with diabetes plus 1 major ASCVD risk factor, treating to a non-HDL-C goal of <100 mg/dL (LDL-C of <70 mg/dL) is considered a therapeutic option. Blood Venous blood specimen / Unknown 04/11/2022 9:26 AM EST 04/11/2022 9:26 AM EST Narrative [facility] - 04/11/2022 9:46 PM EST FASTING:YES FASTING: YES Jamie Name LAB BLOOD ORDERABLES Final Resul t [facility] [address], [place] [address] [facility] [place] [facility] [address], [place] [address] * Colonoscopy (11/17/2016 12:06 PM EDT) Colonoscopy Normal Normal Narrative Maria Esther Zhao - 11/17/2016 12:06 PM EDT Recommended 10 years follow up [facility] Provider HEALTH MAINTENANCE Final Result from Last 3 Months or Most Recently Relevant to Health Maintenance Insurance [facility] CARE HOME OPTIONS (O D-SNP) [facility] Care Teams Helicopter Pilot Relationship Specialty Start Date End Date Name, MD Jamie [address] [place] [address] PCP - General Family Medicine 10/29/15 [facility] 07/02/24
--- OUTSIDE RECORDS SUMMARY | 2025-04-13 22:38 | XMS_ITS | Encounter Summary ---
Author Organization [employer] Address [address] [place] [address] [address] [place] [address] Care Team Providers Care Post Anesthesia Care Unit Nurse Name Role Phone Name, Jamie DURHAM Primary Care Provider [phone] Encounter Details Date Type Department Care Team ([facility] st Contact Info) Description 10/03/2022 Abstract [facility] [address] [place], [place] [phone] Name, MD Jamie [address] [place] [address] Social History Tobacco Use Types Packs/Day Years [...] on filedocumented in this encounter Care Teams Post Anesthesia Care Unit Nurse Relationship Specialty Start Date End Date Name, MD Jamie [address] [place] [address] PCP - General Family Medicine 10/29/15 Lia SOFIA 07/02/24 documented as of this encounter
--- OUTSIDE RECORDS SUMMARY | 2025-04-13 22:38 | XMS_ITS | Encounter Summary ---
Author Organization [employer] Address [address] [facility] [address] [place] [address] Care Team Providers Care No Bake Molder Name Role Phone Name, Jamie DURHAM Primary Care Provider [phone] Reason for Visit * Reason Comments Med Refill Encounter Details Date Type Department Care Team ([facility] st Contact Info) Description 06/08/2024 Refill [facility] [address] [place], [place] [phone] Name, MD Jamie [address] [place] [address] Social History Tobacco Use Types Packs/Day Years [...] documented as of this encounter Care Teams No Bake Molder Relationship Specialty Start Date End Date Name, MD Jamie [address] [place] [address] PCP - General Family Medicine 10/29/15 Lia Gustavo 07/02/24 documented as of this encounter
--- OUTSIDE RECORDS SUMMARY | 2025-04-13 22:38 | XMS_ITS | Encounter Summary ---
Author Organization [employer] Address [address] [facility] 7t [place] [address] Care Team Providers Care Burrer Machine Name Role Phone Name, Jamie DURHAM Primary Care Provider [phone] Encounter Details Date Type Department Care Team (Latest Contact Info) Description 08/24/2018 Abstract [facility] CONVERSIONS Dental, Provider, DDS Social History [...] on filedocumented in this encounter Care Teams Burrer Machine Relationship Specialty Start Date End Date Name, MD Jamie [address] [place] [phone] PCP - General Family Medicine 10/29/15 [facility] 07/02/24 documented as of this encounter
== END 2025-04-13 15:07 ==
LOC: HO.US 15:06
PROVIDERS: PCP Internal Medicine Geriatric Medicine; Visit Provider Nurse Practitioner Family
DX: N45.1 Epididymitis (principal)
CPT/HCPCS: 76870

== ENCOUNTER → 2025-04-13 15:08 | Outpatient (BNV) | payer OTHER, SELFPAY | PROVIDERS: PCP Internal Medicine Geriatric Medicine; Visit Provider Radiology Diagnostic Radiology | DX: N45.1 Epididymitis (principal) | CPT/HCPCS: 76870 ==